=== PATIENT | male | born 1935 | race Caucasian/White ===

== ENCOUNTER 2017-01-08 08:41 | Emergency (ER) | payer MEDICARE, MEDICAID ==
--- NOTE | 2017-01-08 13:47 | UC ---
I, Oh,Soohyun, scribed for Sheryl Winston DO on 01/08/17 at 1108 . Complaint Male HPI - HPI Summary HPI Summary: LEVEL 5 CAVEAT secondary to profound MR. Pt is nonverbal. Most of HPI is obtained from dish room worker/staff present at bedside. Pt is nonverbal, does not follow command. He is currently resisting examination, repeatedly hitting his own head. This 81 y/o male presents to [facility] from [facility] for acute on recurrent inguinal hernia. Pt was noted with scrotal swelling this morning by a member of the night staff, and concerned staff decided to bring him for evaluation today when swelling appeared bigger than the previous ones. The critical care cns with pt ( a day staff member who knows pt well), states that he does not see any difference in pt scrotum from his usual state of escaped hernia. Further, per critical care cns, while pt is agitated from waiting in room in a gown, he does not appear to be in any acute pain. Care take states that when pt is in pain his hands make a shaking gesture when in pain. PMHx includes spermatocele, chronic constipation, Carson, Jain Palsy, and recurrent bilat inguinal hernia. - History of Current Complaint Chief Complaint: UCGU Stated Complaint: [id number],SORE Time Seen by Provider: 01/08/17 09:50 Hx Obtained From: Family/Radio Electronics Technician, Medical Records Hx From Patient Unobtainable Due To: Other - Profound MR Onset/Duration: Sudden Onset, Lasting Hours, Still Present Timing: Constant Associated Signs And Symptoms: Negative: Fever, Appetite, Penile Swelling, Penile Discharge - Allergies/Home Medications Allergies/Adverse Reactions: Allergies Allergy/AdvReac Type Severity Reaction Status Date / Time Amoxicillin [From Augmentin] Allergy Unknown Unknown Verified 01/08/17 08:57 Reaction Details Clavulanic Acid Allergy Unknown Unknown Verified 01/08/17 08:57 [From Augmentin] Reaction Details PMH/Surg Hx/FS Hx/Imm Hx Endocrine History Of: Reports: Thyroid Disease Denies: Diabetes Cardiovascular History Of: Denies: Cardiac Disorders, Hypertension Respiratory History Of: Denies: COPD, Asthma GI/ History Of: Denies: Ulcer Psychological History Of: Reports: Anxiety - excessive - Surgical History Surgical History: Unable to Obtain/Confirm - Family History Known Family History: Positive: Unknown - LEVEL 5 CAVEAT secondary to MR - Social History Occupation: Disabled Lives: [facility] [employer] Alcohol Use: None Substance Use Type: None Smoking Status (MU): Never Smoked Tobacco Review of Systems Constitutional: Negative Skin: Negative Eyes: Negative Respiratory: Negative Gastrointestinal: Negative Genitourinary: Other - scrotal enlargement d/t escaped hernia Motor: Negative All Other Systems Reviewed And Are Negative: No - Comments Additional Review of Systems Comments: LEVEL 5 CAVEAT secondary to MR. Stringer ROS obtained from neonatal intensive care unit nurse. Physical Exam Triage Information Reviewed: Yes Completion Of Physical Exam Limited Due To: Patient is uncooperative with exam, Other - LEVEL 5 CAVEAT secondary to MR. Zhang does not follow commands at all and is resisting examination at the time. Appearance: Well-Appearing, No Pain Distress, Well-Nourished Vital Signs: Initial Vital Signs Temp 97.4 F 01/08/17 08:47 Pulse 70 01/08/17 08:47 Resp 24 01/08/17 08:47 Pulse Ox 94 01/08/17 08:47 Vital Signs Reviewed: Yes Eyes: Positive: Conjunctiva Clear. Negative: Discharge ENT: Positive: Hearing grossly normal Neck: Positive: Supple, Nontender Respiratory: Positive: Lungs clear, Normal breath sounds, No respiratory distress, No accessory muscle use Cardiovascular: Positive: RRR, No Murmur Abdomen Description: Positive: Hernia @ Bowel Sounds: Positive: Present Musculoskeletal Exam: Normal Neurological: Positive: Alert, Muscle Tone Normal Psychological: Positive: Decreased Age Appropriate Behavior Skin Exam: Normal, Other - Warm, dry, color nml. neg for swelling, induration, erythema, calor, drainage Complaint Male Course/Dx - Differential Dx/Diagnosis Provider Diagnoses: Inguinal hernia Discharge - Discharge Plan Condition: Stable Disposition: HOME Patient Education Materials: Inguinal Hernia (ED) Referrals: Elliot Rivera DO [Primary Care Provider] - As Soon As Possible Additional Instructions: Right now, per caregiver observation, pt does not appear to be in acute pain. Inspection of his scrotum does not reveal any sign of infection. Per neonatal intensive care unit nurse , pt scrotum does not seem to be significantly. He should be evaluated by his PCP this week. Until that time, continue current monitoring of hernia for changes. Please be sure to bring patient immediately to Emergency Room if patient is noted with fever, acute pain, or any sign of infection(redness, swelling, heat, drainage). The documentation as recorded by the scribeMat Soohyun accurately reflects the service I personally performed and the decisions made by , Sheryl Winston DO.
== END 2017-01-08 11:30 | disposition home or self-care (01) ==
LOC: UCEAST 08:41
DX: K40.90 Unilateral inguinal hernia, without obstruction or gangrene, not specified as recurrent (principal); E07.9 Disorder of thyroid, unspecified; F41.9 Anxiety disorder, unspecified; Z88.3 Allergy status to other anti-infective agents
CPT/HCPCS: 99212; G0463

== ENCOUNTER 2017-06-30 09:01 | Emergency (ER) | payer MEDICARE, MEDICAID ==
[2017-06-30 09:47] VITALS: BP 131/80
--- NOTE | 2017-08-05 07:42 | UC ---
Red Lang Nikita, scribed for Sheryl Winston DO on 06/30/17 at 1016 . Respiratory Complaint HPI - HPI Summary HPI Summary: This patient is an 82 year old M presenting to [facility] with a respiratory complaint since earlier this morning. Daughter reports the pt has had clear nasal drainage for a few days. This morning, he had yellow nasal drainage and a barky cough that the daughter hasnt heard since this morning. The CC is described as yellow nasal drainage with a cough. The patient rates the pain 0/ 10 in severity. Symptoms aggravated by nothing. Symptoms alleviated by nothing. Patient denies abdominal pain, N/V/D, urinary and bowel symptoms, appetite changes, unusual behaviors, and ear ache. - History of Current Complaint Chief Complaint: UCRespiratory Stated Complaint: NASAL DRAINAGE Time Seen by Provider: 06/30/17 10:07 Hx Obtained From: Family/Target Protection Specialist - daughter Hx From Patient Unobtainable Due To: Altered Mental Status Onset/Duration: Sudden Onset - earlier this morning, Still Present Severity Currently: None Pain Intensity: 0 Pain Scale Used: 0-10 Numeric Character: Cough: Nonproductive - barky cough and yellow nasal discharge Aggravating Factors: Nothing Alleviating Factors: Nothing - Allergies/Home Medications Allergies/Adverse Reactions: Allergies Allergy/AdvReac Type Severity Reaction Status Date / Time Amoxicillin [From Augmentin] Allergy Unknown Unknown Verified 06/30/17 09:42 Reaction Details Clavulanic Acid Allergy Unknown Unknown Verified 06/30/17 09:42 [From Augmentin] Reaction Details PMH/Surg Hx/FS Hx/Imm Hx Endocrine History: Hypothyroidism Other Cardiovascular History: Heart murmur, arthrosclorosis aorta, aorto iliac syndrome GI/ History: Other - 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 Other GI/ History: 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 Psychological History: Anxiety Other Cancer History: Tuberculosis, psoriasis, Savery Palsy, hemorrhoids, inguinal hernia - Surgical History Surgical History: Unable to Obtain/Confirm - Family History Known Family History: Positive: Unknown - LEVEL 5 CAVEAT secondary to MR - Social History Alcohol Use: None Substance Use Type: None Smoking Status (MU): Never Smoked Tobacco Review of Systems ENT: Other - clear nasal discharge since few days ago, yellow nasal discharge this morning; denies ear ache Respiratory: Cough - barky cough, non-productive Gastrointestinal: Other - denies abdominal pain, N/V/D, bowel symptoms, appetite changes Genitourinary: Other - denies urinary symptoms Psychological: Other - Denies unusual behavior All Other Systems Reviewed And Are Negative: Yes Physical Exam Triage Information Reviewed: Yes Vital Signs: Initial Vital Signs Temp 98 F 06/30/17 09:43 Pulse 59 06/30/17 09:43 Resp 20 06/30/17 09:43 BP 131/80 06/30/17 09:43 Pulse Ox 99 06/30/17 09:43 - Additional Comments Pt has obvious developmental delay. Appearance: Well-Appearing, No Pain Distress, Well-Nourished Eyes: conjunctiva clear, negative: discharge ENT: Hearing grossly normal, Negative: Muffled/hoarse voice. Yellow nasal discharge. Respiratory/Lung Sounds: Lungs clear, Normal breath sounds, No respiratory distress, No accessory muscle use Cardiovascular: RRR, No murmur Musculoskeletal: Normal Neurological: Alert, muscle tone normal Psychiatric: Normal, age appropriate behavior Skin: Normal, other -- Warm, Dry, Normal color UC Diagnostic Evaluation - Laboratory O2 Sat by Pulse Oximetry: 99 Respiratory Course/Dx - Course Course Of Treatment: This patient is an 82 year old M presenting to [facility] with a respiratory complaint since earlier this morning. Daughter reports the pt has had clear nasal drainage for a few days. This morning, he had yellow nasal drainage and a barky cough that the daughter hasnt heard since this morning. The CC is described as yellow nasal drainage with a cough. The patient rates the pain 0/10 in severity. Symptoms aggravated by nothing. Symptoms alleviated by nothing. Patient denies abdominal pain, N/V/D, urinary and bowel symptoms, appetite changes, unusual behaviors, and ear ache. BP noted. Medications reviewed this visit. Pt will be discharged. Family is agreeable with this plan. appropriot geriatric bp. - Differential Dx/Diagnosis Provider Diagnoses: Upper Respiratory Infection. Discharge - Discharge Plan Condition: Stable Disposition: HOME Patient Education Materials: Upper Respiratory Infection (ED) Referrals: Elliot Rivera DO [Primary Care Provider] - 1 Week Additional Instructions: Your blood pressure was elevated at this visit. That does not mean you have hypertension, it is probably due to your current condition. Please follow up with your primary care provider. The documentation as recorded by the Red olmstead Nikita accurately reflects the service I personally performed and the decisions made by , Sheryl Winston DO.
== END 2017-06-30 10:46 | disposition home or self-care (01) ==
LOC: UCEAST 09:01
DX: J06.9 Acute upper respiratory infection, unspecified (principal); E03.9 Hypothyroidism, unspecified; I70.0 Atherosclerosis of aorta; N40.0 Benign prostatic hyperplasia without lower urinary tract symptoms; F41.9 Anxiety disorder, unspecified; Z88.1 Allergy status to other antibiotic agents
CPT/HCPCS: 99212; G0463

== ENCOUNTER 2018-04-14 10:05 | Inpatient (IN) | payer MEDICARE, MEDICAID ==
[2018-04-14] MEDS ORDERED: Ketorolac INJ* 30 MG/ML 1 ML VIAL IV PUSH ONE (10:36)
--- NOTE | 2018-04-14 11:56 | RAD ---
Indication: Fever. Comparison is made with previous exam dated August 03, 2017. 2 views of the chest are reviewed. Airspace disease is noted in the lung bases. No mediastinal shift is noted. No pleural fluid is identified. IMPRESSION: Bibasilar airspace disease likely representing bibasilar atelectasis although pneumonia is not totally excluded.
[2018-04-14] MEDS ORDERED: Levofloxacin 750 MG IVPREMIX(* 750 MG/150 ML BAG IVPB ONE (11:59)
[2018-04-14] MEDS: NS 0.9% 1000 ML* 1,000 ML IV ONE ×2 (12:04→13:24)
[2018-04-14 12:17] LABS: ABS Basophils 0 10^3/ul (0-0.2); ABS Eosinophils 0 10^3/ul (0-0.6); ABS Lymphocytes 0.6 10^3/ul (1.0-4.8); ABS Monocytes 1.1 10^3/ul (0-0.8); ABS Nucleated RBC 0.1 10^3/ul; Eosinophil % 0 % (0-6); Hematocrit 50 % (42-52); Lymphocyte % 3.4 % (25-47); Mean Corpuscular HGB Conc 34 g/dl (31-36); Mean Corpuscular Hemoglobin 31 pg (27-31); Mean Corpuscular Volume 91 fL (80-94); Mean Platelet Volume 8.1 um3 (7.4-10.4); Nucleated Red Blood Cells % 0.4; Platelet Count 278 10^3/ul (150-450); Red Blood Count 5.53 10^6/ul (4.00-5.40); Red Cell Distribution Width 14 % (10.5-15); White Blood Count 17.7 10^3/ul (3.5-10.8)
[2018-04-14 12:24] LABS: INR 1.25 (0.77-1.02)
[2018-04-14 12:34] LABS: EGFR Non-African American 46.3 (>60)
[2018-04-14 13:03] LABS: Urine Appearance Turbid; Urine Blood 1+ (Negative); Urine Color Yellow; Urine Ketones Negative (Negative); Urine Protein 1+(30 mg/dL) (Negative); Urine Specific Gravity 1.015 (1.010-1.030); Urine Urobilinogen Negative (Negative)
[2018-04-14] MEDS ORDERED: Aspirin 81 mg CHEW TAB* 81 MG TAB.CHEW PO ONE (13:13)
[2018-04-14] MEDS ORDERED: Al Hydrox/Mg Hydrox/Simet LIQ* 30 ML UDC PO PRN (14:08)
[2018-04-14] MEDS ORDERED: NS 0.9% 1000 ML* 1,000 ML IV ONE (14:15)
[2018-04-14] MEDS: cefTRIAXone(*) 1 GM in NS 0.9% 50 ML* 50 ML IVPB SCH (15:53)
[2018-04-14] MEDS ORDERED: Azithromycin IV(*) 500 MG in NS 0.9% 250 ML* 250 ML IVPB SCH (16:00)
[2018-04-14] MEDS: Heparin VIAL(*) 5000 UNITS/ML VIAL (FIVE THOUSAND) SUBCUT SCH ×2 (16:25→21:25)
--- NOTE | 2018-04-14 16:49 | ED ---
Nils Lang Natalie, scribed for Dain Bernstein MD on 04/14/18 at 1121 . HPI Febrile Illness - HPI Summary HPI Summary: The patient is an 83 y/o M presenting to [facility] accompanied by diathermy equipment repairer c/o fever and lethargy that started this morning. Per diathermy equipment repairer, the pt would not get out of bed, which is unusual for him as he's usual "on the go and the first one awake in the morning." She states that she had to go into his closet and mess things around in order to get up him due to his OCD with keeping his closet organized. She also reports that the pt's right eye was red, and he kept holding his hand over the eye. The pain is rated 5/10 in severity. The pt has not been coughing more than usually. He has not fallen recently. 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 Hx is limited due to pt's MR, causing him to be nonverbal. - History of Current Complaint Chief Complaint: EDFever Hx Obtained From: Family/Work Ticket Distributor Hx From Patient Unobtainable Due To: Other - pt is nonverbal and unable to contribue hx due to MR Onset/Duration: Started Hours Ago, Still Present Timing: Constant, Lasting Hours Initial Severity: Mild Current Severity: Mild Pain Intensity: 5 Pain Scale Used: 0-10 Numeric Aggravating Factors: Nothing Alleviating Factors: Nothing Associated Signs and Symptoms: Negative - cough, Other: - redness in right eye - Allergy/Home Medications Allergies/Adverse Reactions: Allergies Allergy/AdvReac Type Severity Reaction Status Date / Time amoxicillin [From Augmentin] Allergy Unknown Verified 04/14/18 13:57 Reaction Details clavulanic acid Allergy Unknown Verified 04/14/18 13:57 [From Augmentin] Reaction Details Home Medications: Home Medications Acetaminophen TAB* [Tylenol TAB*] 650 mg PO Q4H PRN 04/14/18 [History Confirmed 04/14/18] Al Hydrox/Mg Hydrox/Simet LIQ* [Maalox Plus*] 10 ml PO ACHS PRN 04/14/18 [ History Confirmed 04/14/18] Bisacodyl [Dulcolax] 10 mg PO SEE INSTRUCTIONS PRN 04/14/18 [History Confirmed 04/14/18] Mineral Oil [Mineral Oil Heavy] 3 drop OTIC DAILY 04/14/18 [History Confirmed ] Polyethylene Glycol 3350* [Miralax*] 17 gm PO DAILY 04/14/18 [History Confirmed 04/14/18] Sodium Phosphate ADULT ENEMA* [Fleet Enema*] 1 enema AL SEE INSTRUCTIONS PRN 11/01 [History Confirmed 04/14/18] Zinc Oxide [Desitin] 13 % TOPICAL TID PRN 04/14/18 [History Confirmed 04/14/18] clonazePAM [Clonazepam Odt] 0.25 mg PO QAM 04/14/18 [History Confirmed 04/14/18] guaiFENesin LIQ* [Robitussin*] 10 ml PO Q4H PRN 04/14/18 [History Confirmed 11/01] PMH/Surg Hx/FS Hx/Imm Hx Endocrine/Hematology History: Reports: Hx Thyroid Disease Denies: Hx Diabetes Cardiovascular History: Denies: Hx Hypertension Respiratory History: Denies: Hx Asthma, Hx Chronic Obstructive Pulmonary Disease (COPD) GI History: Denies: Hx Ulcer Sensory History: Reports: Hx Cataracts - BILAT Denies: Hx Contacts or Glasses, Hx Hearing Aid Opthamlomology History: Reports: Hx Cataracts - BILAT Denies: Hx Contacts or Glasses Psychiatric History: Reports: Hx Anxiety - excessive - Surgical History Hx Anesthesia Reactions: No - UNKNOWN Infectious Disease History: No Infectious Disease History: 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 Denies: Hx Clostridium Difficile, Hx Hepatitis, Hx Human Immunodeficiency Virus (HIV), Hx of Known/Suspected MRSA, Hx Shingles, Hx Known/Suspected VRE, Hx Known/Suspected VRSA, History Other Infectious Disease, Traveled Outside the [place] in Last 30 Days - Family History Known Family History: Positive: Unknown - LEVEL 5 CAVEAT secondary to MR - Social History Alcohol Use: None Substance Use Type: Reports: None Smoking Status (MU): Never Smoked Tobacco Review of Systems Positive: Fever, Other - lethargic Positive: Other - redness in right eye Negative: Cough All Other Systems Reviewed And Are Negative: Yes Physical Exam - Summary Physical Exam Summary: Appearance: Well appearing, no pain distress Skin: hot to touch, dry, reflects adequate perfusion Head/face: normal Eyes: EOMI, MARILYN, right eye is not red, ptosis on right side ENT: mucous membranes tacky Neck: supple, non-tender Respiratory: coarse sounds to lungs but exam is limited due to low groan in lungs, breath sounds present Cardiovascular: heart is tachycardic, pulses are full Abdomen: non-tender, soft Bowel Sounds: present Musculoskeletal: normal, strength/ROM intact Neuro: normal, sensory motor intact, A&Ox3 Triage Information Reviewed: Yes Vital Signs On Initial Exam: Initial Vitals Temp Pulse Resp BP Pulse Ox 101.4 F 101 16 143/78 93 04/14/18 10:08 04/14/18 10:08 04/14/18 10:08 04/14/18 10:08 04/14/18 10:08 Vital Signs Reviewed: Yes Diagnostics - Vital Signs Vital Signs Temp Pulse Resp BP Pulse Ox 04/14/18 10:08 101.4 F 101 16 143/78 93 - Laboratory Lab Results: Lab Results 04/14/18 04/14/18 04/14/18 Range/Units 11:54 11:54 11:54 WBC 17.7 H (3.5-10.8) 10^3/ul RBC 5.53 H (4.00-5.40) 10^6/ul Hgb 17.0 (14.0-18.0) g/dl Hct 50 (42-52) % MCV 91 (80-94) fL MCH 31 (27-31) pg MCHC 34 (31-36) g/dl RDW 14 (10.5-15) % Plt Count 278 (150-450) 10^3/ul MPV 8.1 (7.4-10.4) um3 Neut % (Auto) 90.5 H (38-83) % Lymph % (Auto) 3.4 L (25-47) % Tyrrell % (Auto) 6.0 (0-7) % Eos % (Auto) 0 (0-6) % Baso % (Auto) 0.1 (0-2) % Absolute Neuts (auto) 16.0 H (1.5-7.7) 10^3/ul Absolute Lymphs (auto) 0.6 L (1.0-4.8) 10^3/ul Absolute Monos (auto) 1.1 H (0-0.8) 10^3/ul Absolute Eos (auto) 0 (0-0.6) 10^3/ul Absolute Basos (auto) 0 (0-0.2) 10^3/ul Absolute Nucleated RBC 0.1 10^3/ul Nucleated RBC % 0.4 INR (Anticoag Therapy) 1.25 H (0.77-1.02) APTT 48.6 H (26.0-36.3) seconds Sodium 135 (135-145) mmol/L Potassium 4.1 (3.5-5.0) mmol/L Chloride 104 (101-111) mmol/L Carbon Dioxide 24 (22-32) mmol/L Anion Gap 7 (2-11) mmol/L BUN 30 H (6-24) mg/dL Creatinine 1.46 H (0.67-1.17) mg/dL Est GFR ( Amer) 56.1 (>60) Est GFR (Non-Af Amer) 46.3 (>60) BUN/Creatinine Ratio 20.5 H (8-20) Glucose 172 H (70-100) mg/dL Lactic Acid (0.5-2.0) mmol/L Calcium 9.8 (8.6-10.3) mg/dL Total Bilirubin 0.70 (0.2-1.0) mg/dL AST 27 (13-39) U/L ALT 22 (7-52) U/L Alkaline Phosphatase 95 (34-104) U/L Troponin I 1.23 H* (<0.04) ng/mL C-Reactive Protein 53.28 H (<8.01) mg/L B-Natriuretic Peptide ( - 100) pg/mL Total Protein 7.8 (6.4-8.9) g/dL Albumin 3.5 (3.2-5.2) g/dL Globulin 4.3 H (2-4) g/dL Albumin/Globulin Ratio 0.8 L (1-3) Urine Color Urine Appearance Urine pH (5-9) Ur Specific [place] (1.010-1.030) Urine Protein (Negative) Urine Ketones (Negative) Urine Blood (Negative) Urine Nitrate (Negative) Urine Bilirubin (Negative) Urine Urobilinogen (Negative) Ur Leukocyte Esterase (Negative) Urine WBC (Auto) (Absent) Urine RBC (Auto) (Absent) Ur Squamous Epith Cells (Absent) Urine Bacteria (Absent) Urine Glucose (Negative) 0704/14/18 04/14/18 Range/Units 11:54 11:54 12:13 WBC (3.5-10.8) 10^3/ul RBC (4.00-5.40) 10^6/ul Hgb (14.0-18.0) g/dl Hct (42-52) % MCV (80-94) fL MCH (27-31) pg MCHC (31-36) g/dl RDW (10.5-15) % Plt Count (150-450) 10^3/ul MPV (7.4-10.4) um3 Neut % (Auto) (38-83) % Lymph % (Auto) (25-47) % Tyrrell % (Auto) (0-7) % Eos % (Auto) (0-6) % Baso % (Auto) (0-2) % Absolute Neuts (auto) (1.5-7.7) 10^3/ul Absolute Lymphs (auto) (1.0-4.8) 10^3/ul Absolute Monos (auto) (0-0.8) 10^3/ul Absolute Eos (auto) (0-0.6) 10^3/ul Absolute Basos (auto) (0-0.2) 10^3/ul Absolute Nucleated RBC 10^3/ul Nucleated RBC % INR (Anticoag Therapy) (0.77-1.02) APTT (26.0-36.3) seconds Sodium (135-145) mmol/L Potassium (3.5-5.0) mmol/L Chloride (101-111) mmol/L Carbon Dioxide (22-32) mmol/L Anion Gap (2-11) mmol/L BUN (6-24) mg/dL Creatinine (0.67-1.17) mg/dL Est GFR ( Amer) (>60) Est GFR (Non-Af Amer) (>60) BUN/Creatinine Ratio (8-20) Glucose (70-100) mg/dL Lactic Acid 1.9 (0.5-2.0) mmol/L Calcium (8.6-10.3) mg/dL Total Bilirubin (0.2-1.0) mg/dL AST (13-39) U/L ALT (7-52) U/L Alkaline Phosphatase (34-104) U/L Troponin I (<0.04) ng/mL C-Reactive Protein (<8.01) mg/L B-Natriuretic Peptide 30 ( - 100) pg/mL Total Protein (6.4-8.9) g/dL Albumin (3.2-5.2) g/dL Globulin (2-4) g/dL Albumin/Globulin Ratio (1-3) Urine Color Yellow Urine Appearance Turbid Urine pH 7.0 (5-9) Ur Specific [place] 1.015 (1.010-1.030) Urine Protein 1+(30 mg/dl) A (Negative) Urine Ketones Negative (Negative) Urine Blood 1+ A (Negative) Urine Nitrate Negative (Negative) Urine Bilirubin Negative (Negative) Urine Urobilinogen Negative (Negative) Ur Leukocyte Esterase 3+ A (Negative) Urine WBC (Auto) 3+(>20/hpf) A (Absent) Urine RBC (Auto) 3+(>10/hpf) A (Absent) Ur Squamous Epith Cells Present A (Absent) Urine Bacteria Absent (Absent) Urine Glucose Negative (Negative) Result Diagrams: 04/14/18 11:54 04/14/18 11:54 Lab Statement: Any lab studies that have been ordered have been reviewed, and results considered in the medical decision making process. - Radiology CXR Xray Interpretation: Positive (See Comments) - Bibasilar airspace disease likely representing bibasilar atelectasis although pneumonia is not totally excluded. ED physician has reviewed this report. Radiology Interpretation Completed By: Radiologist - EKG 13:05 Cardiac Rate: NL - 97 BPM EKG Rhythm: Sinus Rhythm EKG Interpretation: PAC. Non-specific ST. Nml axis. Course/Dx - Course Course Of Treatment: Patient with mental retardation who is unable to contribute to his history. Today with his more somnolent with decreased activity. Found to have fever and bibasal infiltrates. He also has elevated troponin. EKG does not show ST elevation. EKG was obtained under difficult circumstances as he was not very welling to have the procedure done. Patient was given IV fluids, antipyretic and IV Levaquin. Aspirin was given as the troponin is elevated. Hospitalist was contacted and will admit the patient to the telemetry service. - Diagnoses Provider Diagnoses: Sepsis, Pneumonia, Dehydration, NSTEMI (non-ST elevated myocardial infarction) - Provider Notifications Discussed Care Of Patient With: Ash Mcdermott Time Discussed With Above Provider: 12:39 - Dr. Mcdermott accepts the pt for admission. Instructed by Provider To: Admit As Inpatient Admit/Transition Orders Completed By ED Provider: Yes - Critical Care Time Critical Care Time: 30-74 min - Critical care time is exclusive of separately billable procedures Discharge - Sign-Out/Discharge Documenting (check all that apply): Discharge/Admit/Transfer - Pt will be admitted to [facility] under the care of Dr. Mcdermott. - Discharge Plan Condition: Fair Disposition: ADMITTED TO [facility] - Billing Disposition and Condition Condition: FAIR Disposition: Admitted to [facility] The documentation as recorded by the Nils olmstead Natalie accurately reflects the service I personally performed and the decisions made by Amandeep chung Kirk, MD.
[2018-04-14] MEDS: chlorproMAZINE TAB* 25 MG PO PRN (17:25)
[2018-04-14] MEDS: Metoprolol Tartrate TAB* 25 MG PO SCH (17:25)
[2018-04-14] MEDS ORDERED: chlorproMAZINE TAB* 25 MG PO SCH (18:00)
[2018-04-14] MEDS ORDERED: Docusate CAP* 100 MG PO SCH (21:00)
[2018-04-14] MEDS: chlorproMAZINE TAB* 25 MG PO SCH (21:24)
[2018-04-14] MEDS: Topiramate TAB(*) 25 MG PO SCH (21:24)
[2018-04-14] MEDS: clonazePAM TAB(*) 0.5 MG PO SCH (21:24)
[2018-04-14] MEDS: Docusate CAP* 100 MG PO SCH (21:25)
[2018-04-14] MEDS: Acetaminophen TAB* 325 MG PO PRN (23:22)
[2018-04-15 01:40] LABS: ABS Basophils 0 10^3/ul (0-0.2); ABS Eosinophils 0 10^3/ul (0-0.6); ABS Lymphocytes 0.9 10^3/ul (1.0-4.8); ABS Monocytes 1.3 10^3/ul (0-0.8); ABS Neutrophils 17.3 10^3/ul (1.5-7.7); ABS Nucleated RBC 0 10^3/ul; Eosinophil % 0 % (0-6); Hematocrit 43 % (42-52); Hemoglobin 14.5 g/dl (14.0-18.0); Lymphocyte % 4.6 % (25-47); Mean Corpuscular HGB Conc 34 g/dl (31-36); Mean Corpuscular Hemoglobin 31 pg (27-31); Mean Corpuscular Volume 90 fL (80-94); Mean Platelet Volume 8.3 um3 (7.4-10.4); Nucleated Red Blood Cells % 0.1; Platelet Count 235 10^3/ul (150-450); Red Blood Count 4.73 10^6/ul (4.00-5.40); Red Cell Distribution Width 14 % (10.5-15); White Blood Count 19.5 10^3/ul (3.5-10.8)
[2018-04-15 01:58] LABS: EGFR Non-African American 46.3 (>60)
[2018-04-15] MEDS ORDERED: NS 0.9% 1000 ML* 1,000 ML IV SCH (04:15)
[2018-04-15] MEDS: Heparin VIAL(*) 5000 UNITS/ML VIAL (FIVE THOUSAND) SUBCUT SCH ×3 (05:59→21:09)
--- NOTE | 2018-04-15 06:05 | HP ---
CC: Dr. Rivera * HISTORY AND PHYSICAL: DATE OF ADMISSION: 04/14/18 PRIMARY CARE PROVIDER: Dr. Rivera. ATTENDING PHYSICIAN WHILE IN THE HOSPITAL: Vadim Mcdermott MD * (dictated by Angelica Herrera NP) CHIEF COMPLAINT: 1. Decreased appetite. 2. Fatigue. HISTORY OF PRESENT ILLNESS: Mr. Carranza is an 83-year-old gentleman with a past medical history significant for profound mental retardation, chronic constipation, psoriasis, hypothyroid, cataracts, atherosclerosis of the aorta, heart murmur, anxiety, hypertension, BPH, and bilateral aortoiliac syndrome, who currently resides at a senior care. He presented to the emergency room with staff from the senior care stating that the patient has had a decreased appetite. The staff states that the patient was out dinner at [employer] his favorite restaurant last evening and did not eat any of his meal. The patient did sleep through the night and the patient this morning did not want to get up. He again did not want to eat his meal, ate very little breakfast. They also reported that his right eye was pink. Due to his change in behavior, he was brought to the emergency room for further evaluation. Upon arrival to the emergency room, the patient was found to have a fever of 101.4. The patient is nonverbal and unable to give any history due to his fever and meeting sepsis criteria. We were asked by the emergency room physician to evaluate him for admission. PAST MEDICAL HISTORY: Significant for: 1. Profound mental retardation. 2. Chronic constipation. 3. Psoriasis. 4. Hypothyroidism. 5. Cataracts. 6. Atherosclerosis of the aorta. 7. Heart murmur. 8. Anxiety. 9. Hypertension. 10. BPH. 11. Bilateral aortoiliac syndrome. PAST SURGICAL HISTORY: Right hernia repair. MEDICATIONS: Home medications include: 1. Desitin topical t.i.d. p.r.n. 2. Mineral oil 3 drops otic daily. 3. Maalox Plus 10 mL p.o. a.c., h.s. p.r.n. 4. Guaifenesin 10 mL q.4 hours as needed for cough. 5. Tylenol 650 mg p.o. q.4 hours as needed for pain. 6. Fleet Enema 1 enema as needed for constipation. 7. Dulcolax 10 mg p.o. as needed for constipation. 8. MiraLax 17 g p.o. daily. 9. Clonazepam 0.5 mg p.o. at bedtime. 10. Humira 40 mg subcu. 11. Bacitracin topically b.i.d. p.r.n. 12. Diprolene topically b.i.d. 13. Vectical 1 application topically b.i.d. 14. Chlorhexidine gluconate 1 solution p.o. b.i.d. 15. Clonazepam ODT 0.25 mg p.o. q.a.m. 16. Deep Sea nasal spray, 1 spray nasal daily. 17. Hydrocortisone 1 application topically b.i.d. 18. Docusate sodium 200 mg p.o. b.i.d. 19. Lactulose 30 mg p.o. daily. 20. Ibuprofen 400 mg p.o. q.4 hours as needed. 21. Niacin ER 1000 mg p.o. daily. 22. Nasal Moist gel. 23. Artificial tears. 24. Thorazine 25 mg p.o. q.p.m. 25. Topiramate 25 mg p.o. b.i.d. 26. Kenalog. 27. Multivitamin 1 cap p.o. q.a.m. 28. Claritin 10 mg p.o. daily. 29. Levothyroxine 50 mcg p.o. q.a.m. ALLERGIES TO MEDICATIONS: Allergy to AUGMENTIN. FAMILY HISTORY: Grandmother with a reported history of hypertension. No reported history of diabetes or cancer within the family. SOCIAL HISTORY: The patient does not smoke, does not drink any alcohol, or use any illicit drugs. The patient currently resides in a senior care. Surrogate decision maker for him is Ms. Bailey as well as Pamela Jiang and her phone number is [phone]. The patient is a full code. REVIEW OF SYSTEMS: As per caregiver, the patient has not had any nausea, vomiting, or diarrhea. Has not had any cough, hemoptysis, or shortness of breath. Has not had any fevers or chills. There was no reported hematuria or dysuria. There has been no dysphagia. No rashes. He does have discoloration to bilateral knees and elbows. A review of systems was difficult to obtain as the patient is nonverbal and has profound mental retardation. PHYSICAL EXAMINATION GENERAL: The patient is a well-nourished, well-developed male. He was found sitting on the stretcher in the emergency room. He is hitting himself in the head with his fists and pushing away staff during this examination. The patient is yelling incomprehensible words. VITAL SIGNS: Temperature on admission was 101.4, heart rate was 111, blood pressure 145/65, O2 saturation was 96% on room air. HEENT: Head is atraumatic and normocephalic. Eyes: EOMs are intact. Right eye is mildly reddened. Oral mucosa appears moist. NECK: Supple. LUNGS: Clear to auscultation bilaterally. There are no wheezes, rales, or rhonchi. CARDIAC: S1, S2. Regular rate and rhythm. ABDOMEN: Soft, flat, and nontender. Bowel sounds are present x4. He does have a right inguinal hernia that is soft to palpation. EXTREMITIES: Pulses are +2 bilaterally. He is able to move all 4 extremities with 5/5 strength. NEUROLOGIC: The patient is nonverbal. He is alert. The patient does yell incomprehensible sounds. SKIN: He does have bilateral purple discoloration to bilateral knees and elbows. DIAGNOSTIC STUDIES AND LABORATORY DATA: WBCs are 17.7, RBCs 5.53, hemoglobin was 17.0, hematocrit was 50, neutrophil percent is 90.5, lymphs are 3.4, absolute neutrophils are 16. INR was 1.25, APTT was 48.6. Sodium 135, potassium 4.1, chloride was 104, carbon dioxide was 24, anion gap was 7, BUN was 30, creatinine 1.46. Troponin was 1.23. C-reactive protein was 53.28. BNP was 30. Urine color was yellow, appearance was turbid, pH was 7, specific gravity 1.015, urine protein was 1+, urine ketones was negative, urine blood was 1+, urine nitrites was negative, urine bilirubin was negative, urobilinogen was negative, urine leukocyte esterase was 3+, urine wbc's was 3+, rbc's 3+, urine squamous epithelial cells were present, urine bacteria was absent, urine glucose was negative. He had a chest x-ray. Radiologist's impression: Bibasilar airspace disease, likely representing bibasilar atelectasis, although pneumonia cannot be excluded. He had an electrocardiogram. Electrocardiogram showed sinus rhythm at rate of 97 with some dynamic EKG changes. ASSESSMENT AND PLAN: Mr. Carranza is an 83-year-old male who presented to the emergency room today due to weakness, fatigue and was found to be febrile meeting sepsis criteria. We were asked to evaluate him for admission due to possible pneumonia and sepsis as well as an elevated troponin. The patient will be admitted to ICU. 1. Fever, sepsis. The patient is meeting SIRS criteria with WBCs of 17.7, temp of 101.4 and a heart rate of 101. The patient was given IV hydration. He did receive 30 mL/kg of IV normal saline for a total of 2000 cc of normal saline. He was placed on ceftriaxone and azithromycin to treat his suspected pneumonia as well as a urinary tract infection. I will repeat a CBC and BMP in the a.m. and continue him on normal saline at 100 cc per hour. With the use of azithromycin to treat his infection, we will have to continue to monitor his QTc for prolongation as the use of azithromycin in conjunction with Thorazine can increase QTc. His QTc on admission was 432 and we will continue to monitor this at this time. 2. Elevated troponin. I will continue to trend his troponins. His initial troponin was 1.23. I will get an echo tomorrow and a repeat EKG in the a.m. I have consulted Cardiology and spoke to Dr. Schuster. The patient will be placed on metoprolol 25 mg p.o. b.i.d. The patient will also continue aspirin 81 mg p.o. daily. I did not place this patient on full strength anticoagulation as the patient repeatedly hits himself in the head and does have an order to wear a helmet at the senior care he lives in, the concern for him having developing a severe hematoma versus bleeding due to his chronic behavior related to his profound mental retardation. I opted to withhold full strength anticoagulation at this time. 3. Hypothyroidism. He should continue on levothyroxine 50 mcg p.o. daily. 4. Anxiety. He should continue on his clonazepam and Thorazine. 5. FEN. The patient will be placed on a heart healthy, decaf okay ground diet. 6. Code status. He is a full code. 7. DVT prophylaxis. I will place him on heparin subcu. 8. Disposition. He will be placed in the ICU for monitoring. TIME SPENT: Time spent on this admission was approximately 75 minutes, greater than half the time was spent at the bedside reviewing the history and obtaining my physical exam, the other half of the time was spent implementing my plan of care. I have discussed this with my attending, Dr. Iisah Mcdermott, he is in agreement with my plan. ANGELICA HERRERA, RAIL DIRECTOR [id number]/CPS #: [id number]
[2018-04-15] MEDS: Cetirizine* 10 MG TAB PO SCH (08:42)
[2018-04-15] MEDS: Levothyroxine TAB* 50 MCG TAB PO SCH (08:42)
[2018-04-15] MEDS: clonazePAM TAB(*) 0.5 MG PO SCH ×2 (08:43→21:08)
[2018-04-15] MEDS: Metoprolol Tartrate TAB* 25 MG PO SCH ×2 (08:43→21:09)
--- NOTE | 2018-04-15 08:45 | ECHO ---
Patient: LEYLA YANG [facility] Rec#: [id number] : 1935 Date: 04/15/2018 Age: 83y Height: 162.56 cm / 64.0 in Weight: 69.4 kg / 153.0 lbs Sex: M BSA: 1.75 Room#: [facility] Admit Date#: 04/15/2018 Type: Inpatient Referring: Angelica Herrera Reading: Angelo Schuster MD Manager Flight Operations: Lesley Lanier RDCS CC: Miguel BARRIOS,Elliot Transthoracic Echocardiogram Indication: ACS BP: 153/68 HR: 70 Rhythm: NSR Findings History: Mental impairments, hypothyroidism, HTN, murmur, atherosclerosis of aorta. Technical Comments: The study is technically difficult. The study was technically limited due to the patient's inability to lay in the left lateral decubitus position. The patient was combative and in right lateral decubitus position during the study. Completed at 0820. Left Ventricle: The left ventricular chamber size is decreased. Mild concentric left ventricular hypertrophy is observed. Global left ventricular wall motion and contractility are within normal limits. There is normal left ventricular systolic function.Suble focal wall motion abnormalities can not be excluded The estimated ejection fraction is 60-65%. Abnormal left ventricular diastolic function is observed. Abnormal left ventricular diastolic filling is observed, consistent with impaired relaxation. The patient was unable to perform a Valsalva maneuver. Left Atrium: The left atrium is moderately dilated. Right Ventricle: The right ventricle is not well visualized. Moderator Band present. The right ventricle is moderately dilated. The right ventricular global systolic function is low normal. Right Atrium: The right atrial cavity size is normal. Aortic Valve: The aortic valve is trileaflet. There is no evidence of aortic valve thickening. There is no evidence of aortic regurgitation. There is no evidence of aortic stenosis. Mitral Valve: The mitral valve leaflets are mildly thickened. There is a trace of mitral regurgitation. There is no evidence of mitral stenosis. Tricuspid Valve: The tricuspid valve structure is not well visualized. There is trace tricuspid regurgitation. Unable to estimate the right ventricular systolic pressure. There is no tricuspid stenosis. Pulmonic Valve: The pulmonic valve structure is not well visualized. There is no pulmonic stenosis. Pericardium: There is no significant pericardial effusion. Aorta: There is no dilatation of the ascending aorta. The aortic arch is not well visualized. The aortic root is normal in size. Pulmonary Artery: The main pulmonary artery is not well visualized. Venous: The inferior vena cava is dilated. There is an approximate 50% respiratory change in the inferior vena cava dimension. Summary: There was not any prior study for comparison. Conclusions The study was technically limited due to the patient's inability to lay in the left lateral decubitus position. The patient was combative and in right lateral decubitus position during the study. Completed at 0820. Global left ventricular wall motion and contractility are within normal limits. There is normal left ventricular systolic function.Suble focal wall motion abnormalities can not be excluded The estimated ejection fraction is 60-65%. Abnormal left ventricular diastolic filling is observed, consistent with impaired relaxation. The right ventricular global systolic function is low normal. There is no evidence of aortic stenosis. There is a trace of mitral regurgitation. There is trace tricuspid regurgitation. Unable to estimate the right ventricular systolic pressure. There is no significant pericardial effusion. Measurements Name Value Normal Range RVIDd (AP) 2D 3 cm (0.9 - 2.6) RVDdMajor (2D) 5 cm (2.2 - 4.4) RAd ISD 4CH 4.5 cm (3.4 - 4.9) RA (A4C)W 4.2 cm (2.9 - 4.6) IVSd (2D) 1.1 cm (0.6 - 1) LVPWd (2D) 1.1 cm (0.6 - 1) LVIDd (2D) 2.8 cm (3.6 - 5.4) LVIDs (2D) 1.99 cm - LV FS (2D) 29 % (25 - 45) Aortic Annulus 1.9 cm (1.4 - 2.6) Ao root diameter (2D) 2.5 cm (2.1 - 3.5) Ascending Ao 2.6 cm (2.1 - 3.4) LA dimension (AP) 2D 3.7 cm (2.3 - 3.8) LAd ISD 4CH 5.3 cm (2.9 - 5.3) LA ISD 4CH W 4.7 cm (2.5 - 4.5) Name Value Normal Range LA ESV SP 4CH (A/L) 79 ml - LA ESV SP 2CH (A/L) 105 ml - LA ESV BP (A/L) 104 ml - LA ESV BP (A/L) index 60 ml/m2 - LA ESV SP 4CH (MOD) 74 ml - LA ESV SP 2CH (MOD) 103 ml - Name Value Normal Range MV E-wave Vmax 0.88 m/sec - MV deceleration time 228.2 msec - MV A-wave Vmax 1.06 m/sec - MV E:A ratio 0.82 ratio - LV septal e' Vmax 0.11 m/sec - LV lateral e' Vmax 0.11 m/sec - LV E:e' septal ratio 8 ratio - LV E:e' lateral ratio 8 ratio - Name Value Normal Range AV Vmax 1.2 m/sec - AV VTI 28 cm - AV peak gradient 5.62 mmHg - AV mean gradient 4.22 mmHg - LVOT Vmax 1.1 m/sec - LVOT VTI 22.67 cm - LVOT peak gradient 4.86 mmHg - LVOT mean gradient 2.97 mmHg - Name Value Normal Range IVC diameter 2.1 cm - Name Value Normal Range PV Vmax 0.76 m/sec - PV peak gradient 2.29 mmHg -
[2018-04-15] MEDS: Topiramate TAB(*) 25 MG PO SCH ×2 (08:47→21:09)
[2018-04-15] MEDS: Aspirin EC TAB* 81 MG TAB.EC PO SCH (08:48)
[2018-04-15] MEDS: Polyethylene Glycol 3350* 17 GM PACKET PO SCH (08:48)
[2018-04-15] MEDS: Niacin ER TAB* 500 MG PO SCH (08:48)
[2018-04-15] MEDS: Docusate CAP* 100 MG PO SCH ×2 (08:49→21:09)
[2018-04-15] MEDS ORDERED: Potassium Chlor TAB* 20 MEQ TAB.ER PO ONE (10:33)
--- NOTE | 2018-04-15 11:06 | PN ---
Subjective Date of Service: 04/15/18 Interval History: Pt is nonverbal, originally came to [facility] from [facility] over 20 yrs ago. As per information received from Tiffany TRUJILLO access rn pt at baseline eats regular diet and is able to feed himself and walk independently. Had been no acting like himself for several days with decreased appetite and not willing to get OOB in AM. Has had chronic diarrhea, but no BM for approx 2 days He is a vasquez of the [facility], but just recently, social workers found family in [place] that is very interested in pt's care Pt has chronic ecchymoses on b/l knees and cyanotic toes that had been there for "years" and are liking improved according to aide Objective Active Medications: Acetaminophen (Tylenol Tab*) 650 mg PO Q4H PRN PRN Reason: FEVER/PAIN Last Admin: 04/14/18 23:22 Dose: 650 mg Al Hydrox/Mg Hydrox/Simethicone (Maalox Plus*) 30 ml PO Q6H PRN PRN Reason: INDIGESTION Aspirin (Aspirin Ec Tab*) 81 mg PO DAILY [facility] Last Admin: 04/15/18 08:48 Dose: 81 mg Atorvastatin Calcium (Lipitor*) 80 mg PO 1700 [facility] Cetirizine HCl (Zyrtec*) 10 mg PO DAILY [facility] Last Admin: 04/15/18 08:42 Dose: 10 mg Chlorpromazine HCl (Thorazine Tab*) 25 mg PO Q6H PRN PRN Reason: AGITATION Last Admin: 04/14/18 17:25 Dose: 25 mg Chlorpromazine HCl (Thorazine Tab*) 25 mg PO QPM [facility] Last Admin: 04/14/18 21:24 Dose: 25 mg Clonazepam (Klonopin Tab(*)) 0.25 mg PO QAM [facility] Last Admin: 04/15/18 08:43 Dose: 0.25 mg Clonazepam (Klonopin Tab(*)) 0.5 mg PO BEDTIME [facility] Last Admin: 04/14/18 21:24 Dose: 0.5 mg Docusate Sodium (Colace Cap*) 200 mg PO BID [facility] Last Admin: 04/15/18 08:49 Dose: 200 mg Heparin Sodium (Porcine) (Heparin Vial(*)) 5,000 units SUBCUT Q8HR [facility] Last Admin: 04/15/18 05:59 Dose: 5,000 units Ceftriaxone Sodium 1 gm/ (Sodium Chloride) 50 mls @ 200 mls/hr IVPB Q24H [facility] Last Admin: 04/14/18 15:53 Dose: 200 mls/hr Azithromycin 500 mg/ Sodium (Chloride) 250 mls @ 250 mls/hr IVPB Q24H [facility] Last Admin: 04/14/18 16:27 Dose: 250 mls/hr Sodium Chloride (Ns 0.9% 1000 Ml*) 1,000 mls @ 100 mls/hr IV PER RATE [facility] Stop: 04/15/18 14:14 Last Admin: 04/15/18 04:21 Dose: 100 mls/hr Lactulose (Lactulose*) 30 ml PO DAILY [facility] Last Admin: 04/15/18 08:50 Dose: 30 ml Levothyroxine Sodium (Synthroid Tab*) 50 mcg PO QAM [facility] Last Admin: 04/15/18 08:42 Dose: 50 mcg Metoprolol Tartrate (Lopressor Tab*) 25 mg PO BID [facility] Last Admin: 04/15/18 08:43 Dose: 25 mg Niacin (Niaspan Er Tab*) 1,000 mg PO DAILY [facility] Last Admin: 04/15/18 08:48 Dose: 1,000 mg Polyethylene Glycol/Electrolytes (Miralax*) 17 gm PO DAILY [facility] Last Admin: 04/15/18 08:48 Dose: 17 gm Topiramate (Topamax(*)) 25 mg PO BID [facility] Last Admin: 04/15/18 08:47 Dose: 25 mg Vital Signs - 8 hr 04/15/18 04/15/18 04/15/18 03:16 04:00 05:00 Temperature 98.2 F Pulse Rate 96 Respiratory 26 25 Rate Blood Pressure (mmHg) O2 Sat by Pulse Oximetry 04/15/18 04/15/18 04/15/18 05:02 05:56 06:00 Temperature Pulse Rate 91 94 Respiratory 26 26 29 Rate Blood Pressure 161/78 155/60 153/68 (mmHg) O2 Sat by Pulse 96 94 Oximetry 04/15/18 04/15/18 04/15/18 07:00 07:26 08:00 Temperature 99.7 F Pulse Rate 86 88 Respiratory 28 33 Rate Blood Pressure 167/67 169/74 (mmHg) O2 Sat by Pulse 99 Oximetry 04/15/18 04/15/18 09:00 10:00 Temperature Pulse Rate 92 Respiratory 24 28 Rate Blood Pressure (mmHg) O2 Sat by Pulse 94 Oximetry Oxygen Devices in Use Now: None Appearance: 83 yo M in [place], nonverbal, not cooperatig with exam, occassionally hitting himself on the face(chronic behavior) Eyes: No Scleral Icterus, - - R eye mild ptosis , pupil at 2 mm, left eye pupil at 3 mm-both reactive to light Ears/Nose/Mouth/Throat: NL Teeth, Lips, Gums, Mucous Membranes Moist Neck: NL Appearance and Movements; NL JVP, Trachea Midline Respiratory: - - crackles at b/l bases Cardiovascular: NL Sounds; No Murmurs; No JVD, RRR Abdominal: - - distended, soft, probabaly tender, pt pulls the provider's hand away during exam, tympanic to precussion, no flank tenderness b/l Extremities: No Edema, - - b/l feet cyanotic, b/l knee ecchymoses L>R Skin: No Nodules or Sclerosis, - - see above Neurological: NL Muscle Strength and Tone, - - r eye ptosis Result Diagrams: 04/15/18 00:55 04/15/18 00:55 Additional Lab and Data: Lab Results 04/14/18 04/14/18 04/14/18 Range/Units 11:54 11:54 11:54 WBC 17.7 H (3.5-10.8) 10^3/ul RBC 5.53 H (4.00-5.40) 10^6/ul Hgb 17.0 (14.0-18.0) g/dl Hct 50 (42-52) % MCV 91 (80-94) fL MCH 31 (27-31) pg MCHC 34 (31-36) g/dl RDW 14 (10.5-15) % Plt Count 278 (150-450) 10^3/ul MPV 8.1 (7.4-10.4) um3 Neut % (Auto) 90.5 H (38-83) % Lymph % (Auto) 3.4 L (25-47) % [place] % (Auto) 6.0 (0-7) % Eos % (Auto) 0 (0-6) % Baso % (Auto) 0.1 (0-2) % Absolute Neuts (auto) 16.0 H (1.5-7.7) 10^3/ul Absolute Lymphs (auto) 0.6 L (1.0-4.8) 10^3/ul Absolute Monos (auto) 1.1 H (0-0.8) 10^3/ul Absolute Eos (auto) 0 (0-0.6) 10^3/ul Absolute Basos (auto) 0 (0-0.2) 10^3/ul Absolute Nucleated RBC 0.1 10^3/ul Nucleated RBC % 0.4 INR (Anticoag Therapy) 1.25 H (0.77-1.02) APTT 48.6 H (26.0-36.3) seconds Sodium 135 (135-145) mmol/L Potassium 4.1 (3.5-5.0) mmol/L Chloride 104 (101-111) mmol/L Carbon Dioxide 24 (22-32) mmol/L Anion Gap 7 (2-11) mmol/L BUN 30 H (6-24) mg/dL Creatinine 1.46 H (0.67-1.17) mg/dL Est GFR ( Amer) 56.1 (>60) Est GFR (Non-Af Amer) 46.3 (>60) BUN/Creatinine Ratio 20.5 H (8-20) Glucose 172 H (70-100) mg/dL Lactic Acid (0.5-2.0) mmol/L Calcium 9.8 (8.6-10.3) mg/dL Total Bilirubin 0.70 (0.2-1.0) mg/dL AST 27 (13-39) U/L ALT 22 (7-52) U/L Alkaline Phosphatase 95 (34-104) U/L Troponin I 1.23 H* (<0.04) ng/mL C-Reactive Protein 53.28 H (<8.01) mg/L B-Natriuretic Peptide ( - 100) pg/mL Total Protein 7.8 (6.4-8.9) g/dL Albumin 3.5 (3.2-5.2) g/dL Globulin 4.3 H (2-4) g/dL Albumin/Globulin Ratio 0.8 L (1-3) Urine Color Urine Appearance Urine pH (5-9) Ur Specific [place] (1.010-1.030) Urine Protein (Negative) Urine Ketones (Negative) Urine Blood (Negative) Urine Nitrate (Negative) Urine Bilirubin (Negative) Urine Urobilinogen (Negative) Ur Leukocyte Esterase (Negative) Urine WBC (Auto) (Absent) Urine RBC (Auto) (Absent) Ur Squamous Epith Cells (Absent) Urine Bacteria (Absent) Urine Glucose (Negative) 04/14/18 04/14/18 04/14/18 Range/Units 11:54 11:54 12:13 WBC (3.5-10.8) 10^3/ul RBC (4.00-5.40) 10^6/ul Hgb (14.0-18.0) g/dl Hct (42-52) % MCV (80-94) fL MCH (27-31) pg MCHC (31-36) g/dl RDW (10.5-15) % Plt Count (150-450) 10^3/ul MPV (7.4-10.4) um3 Neut % (Auto) (38-83) % Lymph % (Auto) (25-47) % [place] % (Auto) (0-7) % Eos % (Auto) (0-6) % Baso % (Auto) (0-2) % Absolute Neuts (auto) (1.5-7.7) 10^3/ul Absolute Lymphs (auto) (1.0-4.8) 10^3/ul Absolute Monos (auto) (0-0.8) 10^3/ul Absolute Eos (auto) (0-0.6) 10^3/ul Absolute Basos (auto) (0-0.2) 10^3/ul Absolute Nucleated RBC 10^3/ul Nucleated RBC % INR (Anticoag Therapy) (0.77-1.02) APTT (26.0-36.3) seconds Sodium (135-145) mmol/L Potassium (3.5-5.0) mmol/L Chloride (101-111) mmol/L Carbon Dioxide (22-32) mmol/L Anion Gap (2-11) mmol/L BUN (6-24) mg/dL Creatinine (0.67-1.17) mg/dL Est GFR ( Amer) (>60) Est GFR (Non-Af Amer) (>60) BUN/Creatinine Ratio (8-20) Glucose (70-100) mg/dL Lactic Acid 1.9 (0.5-2.0) mmol/L Calcium (8.6-10.3) mg/dL Total Bilirubin (0.2-1.0) mg/dL AST (13-39) U/L ALT (7-52) U/L Alkaline Phosphatase (34-104) U/L Troponin I (<0.04) ng/mL C-Reactive Protein (<8.01) mg/L B-Natriuretic Peptide 30 ( - 100) pg/mL Total Protein (6.4-8.9) g/dL Albumin (3.2-5.2) g/dL Globulin (2-4) g/dL Albumin/Globulin Ratio (1-3) Urine Color Yellow Urine Appearance Turbid Urine pH 7.0 (5-9) Ur Specific [place] 1.015 (1.010-1.030) Urine Protein 1+(30 mg/dl) A (Negative) Urine Ketones Negative (Negative) Urine Blood 1+ A (Negative) Urine Nitrate Negative (Negative) Urine Bilirubin Negative (Negative) Urine Urobilinogen Negative (Negative) Ur Leukocyte Esterase 3+ A (Negative) Urine WBC (Auto) 3+(>20/hpf) A (Absent) Urine RBC (Auto) 3+(>10/hpf) A (Absent) Ur Squamous Epith Cells Present A (Absent) Urine Bacteria Absent (Absent) Urine Glucose Negative (Negative) Microbiology and Other Data: Microbiology 04/14/18 12:13 Urine Culture - Preliminary Urine Enterococcus Faecalis 04/14/18 15:43 Nasal Screen MRSA (PCR) - Final Nasal Mrsa Not Detected Assess/Plan/Problems-Billing Assessment:83 yo M with h/o chronic diarrhea, profound MR(nonverbal, but able to walk and feed himself), psoriasis, b/l aortiliac syndrome, presents with change in behavior(not eating, not willing to get OOB) - Patient Problems (1) Sepsis Comment: appears to be related to UTI Pt had several incontinence episodes and the highest post void residual at 120 ml. Will get renal /bladder US to eval for obstruction cont Ceftriaxone, due to u. cx showing E. fecalis will add ampicillin Leukocytosis still increasing Awaiting cx (2) RENU (acute kidney injury) Comment: pt has CKD with creat at 1.2 at baseline Due to sepsis his creat is increased (3) Troponin level elevated Comment: D/w Dr. Schuster Likely ischemia in face of sepsis Echo shows good EF and no wall motion abn cont med tx with bb/statin/ASA (4) Abdominal distension Comment: no BM x 2 days, probable abd tenderness. Pt would not cooperate with CT scan. will administer Fleet, observe (5) Psoriasis Comment: oSnnyira held (6) DVT prophylaxis Comment: HSQ Status and Disposition: inpatient
[2018-04-15] MEDS ORDERED: Sodium Phosphate ADULT ENEMA* 118 ml bottle PR PRN (11:17)
[2018-04-15] MEDS ORDERED: Bisacodyl EC TAB* 5 MG PO PRN (11:17)
[2018-04-15] MEDS ORDERED: Zinc Oxide 16% PASTE* (Butt Paste) 1 TUBE TOPICAL PRN (11:17)
[2018-04-15] MEDS ORDERED: Al Hydrox/Mg Hydrox/Simet LIQ* 30 ML UDC PO PRN (11:17)
[2018-04-15] MEDS ORDERED: Ampicillin IV* 2 GM in NS 0.9% 100 ML* 100 ML IVPB SCH (12:00)
--- NOTE | 2018-04-15 12:23 | RAD ---
INDICATION: Sepsis, possible urinary obstruction. COMPARISON: Comparison is made with a prior CT of the abdomen and pelvis from March 08, 2015. TECHNIQUE: Multiple real-time images of the kidneys and urinary bladder were obtained. FINDINGS: The kidneys are normal in size shape and echogenicity. The right kidney measured 10.1 x 5.1 x 5.0 cm and the left kidney measured 10.6 x 4.7 x 4.4 cm. There is a slightly complex cyst present within the superior pole of the right kidney measuring 2.8 x 2.5 x 2.4 cm. This is present on the prior CT study and has increased slightly in size. No hydronephrosis is seen. The bladder wall is mildly thickened and slightly irregular suggestive of chronic outlet obstruction. The urinary jets were not visualized likely due to patient motion. The prostate gland measured 4.0 x 4.3 x 5.5 cm for a total volume of 49 ml. The bladder volume was 679 mL. The patient was unable to void during the study. IMPRESSION: 1. DISTENDED URINARY BLADDER. 2. ENLARGED PROSTATE GLAND AND THICK WALLED SLIGHTLY IRREGULAR BLADDER SUGGESTIVE OF CHRONIC OUTLET OBSTRUCTION. 3. SLIGHTLY COMPLEX RIGHT RENAL CYST, NO EVIDENCE FOR HYDRONEPHROSIS.
--- NOTE | 2018-04-15 12:49 | CONS ---
CC: Dr. Rivera CARDIOLOGY CONSULT REPORT: DATE OF CONSULT: 04/15/18 INDICATION FOR CONSULT: Abnormal troponin levels. HISTORY OF PRESENT ILLNESS: The patient is an 83-year-old gentleman with a history of severe mental retardation, history of chronic constipation, hypothyroidism, who was brought to the emergency room b ecause of decreased appetite. The patient had not slept well the last couple of nights and was not a cting himself and was brought to the emergency room. In the emergency room, he was found to have an elevated temperature at 101.4, mildly elevated leukocytosis, and elevated troponin level of 1.23. Hi s EKG showed no ischemic EKG changes. The patient was admitted to the intensive care unit overnight. He was given medications for presumed urosepsis. The patient's subsequent troponin levels were 1.39 , 2.08, and 1.95. Again, the patient is nonverbal and unable to give information as to his symptoms. His EKG showed no dramatic ischemic EKG changes. PAST MEDICAL HISTORY: Significant for chronic constipation, psoriasis, hypothyroidism, anxiety, depr ession, severe mental retardation. PAST SURGICAL HISTORY: Right hernia repair. OUTPATIENT MEDICATIONS: 1. Clonazepam 0.5 mg q.h.s. 2. Diprolene topical p.r.n. 3. Multiple topical steroids. 4. Lactulose 30 mg a day. 5. Thorazine 25 mg q.h.s. 6. Topamax 25 mg b.i.d. 7. Multivitamin a day. 8. Claritin 10 mg a day. 9. Levothyroxine 50 mcg a day. ALLERGIES: Intolerant of Augmentin. FAMILY HISTORY: Could not be obtained. SOCIAL HISTORY: The patient currently resides in a fdc. He has no access to tobacco or alcoh ol use. REVIEW OF SYSTEMS: Could not be obtained as the patient is nonverbal. PHYSICAL EXAM: Height is 5 feet 4 inches, weight 153 pounds. Temperature 99.7, heart rate is 86, bl ood pressure 153/68, respiratory rate is 27, oxygen saturation 99% on room air. Sclerae anicteric. Oropharynx is pink without erythema. Carotids are 2+, without bruits. JVD is normal. Thyroid is nor mal. Cardiac Exam: S1, S2, without any murmurs, rubs, or gallops. Lungs are clear to auscultation. Abdomen is soft, nontender, and nondistended with normoactive bowel sounds. Extremities show no edema . He has 2+ pulses in his dorsalis pedis and popliteal. The patient is awake and alert. The patient is unable to follow commands. DIAGNOSTIC STUDIES/LAB DATA: Chemistry is within normal limits. BUN 31, creatinine 1.14 which is sl ightly higher than his baseline of 1.2. Troponins are as described above. AST and ALT are normal. Total cholesterol 176, LDL 121. TSH is 0.94. CBC: White count 19.5, hemoglobin 14, hematocrit 43, platelet count 235. EKG demonstrates normal sinus rhythm with nonspecific T-wave abnormalities. His echocardiogram today demonstrated normal LV size and systolic function. No focal wall motion abn ormalities. The overall images were not good enough to rule out subtle focal wall motion abnormaliti es. No significant valvular abnormalities. IMPRESSION: This is an 83-year-old gentleman, who is admitted to the hospital with decreased appetit e and change in status. His troponin levels were mildly elevated. The patient is unable to give info rmation whether he had any symptoms or not. There was no clear evidence of tachypnea or diaphoresis. The patient's EKG shows no profound ischemic EKG changes. His echocardiogram shows grossly normal LV function without any obvious focal wall motion abnormaliti es. RECOMMENDATIONS: For now, my recommendation is to continue his treatment for his urosepsis. The patient will be on an aspirin a day. The patient will be started on low-dose beta blockers. At thi s point, I do not think any other cardiac testing is necessary. I am not sure the patient would tole rate stress testing, would certainly not tolerate a cardiac catheterization. [id number]/[facility] #: [id number]
[2018-04-15] MEDS ORDERED: Vancomycin(*) 1,000 MG in NS 0.9% 250 ML* 250 ML IVPB ONE (13:00)
[2018-04-15] MEDS ORDERED: KCL 20 MEQ/100 ML IVPREMIX* 20 MEQ/100 ML BAG IV ONE (13:00)
[2018-04-15] MEDS ORDERED: Vancomycin per Pharmacy* NOTE FOLLOW UP SCH (13:00)
[2018-04-15] MEDS: Atorvastatin* 80 MG TAB PO SCH (16:49)
[2018-04-15] MEDS: Acetaminophen TAB* 325 MG PO PRN (16:49)
[2018-04-15] MEDS: cefTRIAXone(*) 1 GM in NS 0.9% 50 ML* 50 ML IVPB SCH (17:11)
[2018-04-15] MEDS: chlorproMAZINE TAB* 25 MG PO SCH (18:21)
[2018-04-15] MEDS: Triamcinolone 0.025% OINT * 15 GM TUBE TOPICAL SCH (21:13)
[2018-04-15] MEDS: Bacitracin OINTMENT* 0.5% 0.5 oz TUBE TOPICAL PRN (21:13)
[2018-04-15] MEDS: HYDROCORTISONE TOPICAL SCH (21:17)
[2018-04-15] MEDS: CALCITRIOL TOPICAL SCH (21:17)
[2018-04-16] MEDS: Acetaminophen TAB* 325 MG PO PRN ×3 (04:44→23:28)
[2018-04-16] MEDS: Heparin VIAL(*) 5000 UNITS/ML VIAL (FIVE THOUSAND) SUBCUT SCH ×3 (05:42→20:32)
[2018-04-16] MEDS: Vancomycin(*) 750 MG in NS 0.9% 250 ML* 250 ML IVPB SCH ×2 (05:51→17:06)
[2018-04-16 06:29] LABS: Hematocrit 39 % (42-52); Hemoglobin 13.7 g/dl (14.0-18.0); Mean Corpuscular HGB Conc 35 g/dl (31-36); Mean Corpuscular Hemoglobin 31 pg (27-31); Mean Corpuscular Volume 89 fL (80-94); Platelet Count 186 10^3/ul (150-450); Red Cell Distribution Width 14 % (10.5-15); White Blood Count 14.1 10^3/ul (3.5-10.8)
[2018-04-16 06:34] LABS: ABS Basophils 0 10^3/ul (0-0.2); ABS Eosinophils 0 10^3/ul (0-0.6); ABS Lymphocytes 1.4 10^3/ul (1.0-4.8); ABS Monocytes 1.7 10^3/ul (0-0.8); ABS Neutrophils 10.9 10^3/ul (1.5-7.7); ABS Nucleated RBC 0 10^3/ul; Eosinophil % 0 % (0-6); Lymphocyte % 10.3 % (25-47); Nucleated Red Blood Cells % 0.1
[2018-04-16 07:08] LABS: EGFR Non-African American 59.2 (>60)
[2018-04-16] MEDS: CALCITRIOL TOPICAL SCH ×2 (07:47→20:36)
[2018-04-16] MEDS: HYDROCORTISONE TOPICAL SCH ×2 (07:47→20:36)
[2018-04-16] MEDS: MINERAL OIL OTIC SCH (07:48)
[2018-04-16] MEDS: Aspirin EC TAB* 81 MG TAB.EC PO SCH (09:42)
[2018-04-16] MEDS: clonazePAM TAB(*) 0.5 MG PO SCH ×2 (09:42→20:32)
[2018-04-16] MEDS: Metoprolol Tartrate TAB* 25 MG PO SCH ×2 (09:42→20:32)
[2018-04-16] MEDS: Cetirizine* 10 MG TAB PO SCH (09:43)
[2018-04-16] MEDS: Levothyroxine TAB* 50 MCG TAB PO SCH (09:44)
[2018-04-16] MEDS: Topiramate TAB(*) 25 MG PO SCH ×2 (09:44→20:32)
[2018-04-16] MEDS: Docusate CAP* 100 MG PO SCH ×2 (09:45→20:32)
[2018-04-16] MEDS: Polyethylene Glycol 3350* 17 GM PACKET PO SCH (09:48)
[2018-04-16] MEDS: Niacin ER TAB* 500 MG PO SCH (09:49)
[2018-04-16] MEDS: Triamcinolone 0.025% OINT * 15 GM TUBE TOPICAL SCH ×2 (09:54→20:35)
[2018-04-16] MEDS ORDERED: Magnesium Hydroxide LIQ* 30 ML UDC PO ONE (10:45)
[2018-04-16] MEDS ORDERED: Magnesium CITRATE* 300 ML BTL PO ONE (10:46)
--- NOTE | 2018-04-16 11:12 | PN ---
Subjective Date of Service: 04/16/18 Interval History: Pt had been refusing to take PO meds, but staff from [facility] brought his own cup and plate and he started eating and drinking. Tolerating Romero in place. No BM yet. Objective Active Medications: Acetaminophen (Tylenol Tab*) 650 mg PO Q4H PRN PRN Reason: FEVER/PAIN Last Admin: 04/16/18 09:45 Dose: 650 mg Al Hydrox/Mg Hydrox/Simethicone (Maalox Plus*) 30 ml PO Q6H PRN PRN Reason: INDIGESTION Al Hydrox/Mg Hydrox/Simethicone (Maalox Plus*) 10 ml PO ACHS PRN PRN Reason: INDIGESTION Aspirin (Aspirin Ec Tab*) 81 mg PO DAILY [facility] Last Admin: 04/16/18 09:42 Dose: 81 mg Atorvastatin Calcium (Lipitor*) 80 mg PO 1700 [facility] Last Admin: 04/15/18 16:49 Dose: 80 mg Bacitracin (Bacitracin Ointment*) 1 applic TOPICAL BID PRN PRN Reason: Skin Irritation Last Admin: 04/15/18 21:13 Dose: 1 applic Bisacodyl (Dulcolax Ec Tab*) 10 mg PO Q48H PRN PRN Reason: CONSTIPATION Cetirizine HCl (Zyrtec*) 10 mg PO DAILY [facility] Last Admin: 04/16/18 09:43 Dose: 10 mg Chlorpromazine HCl (Thorazine Tab*) 25 mg PO Q6H PRN PRN Reason: AGITATION Last Admin: 04/14/18 17:25 Dose: 25 mg Chlorpromazine HCl (Thorazine Tab*) 25 mg PO QPM [facility] Last Admin: 04/15/18 18:21 Dose: 25 mg Clonazepam (Klonopin Tab(*)) 0.25 mg PO QAM [facility] Last Admin: 04/16/18 09:42 Dose: 0.25 mg Clonazepam (Klonopin Tab(*)) 0.5 mg PO BEDTIME [facility] Last Admin: 04/15/18 21:08 Dose: 0.5 mg Docusate Sodium (Colace Cap*) 200 mg PO BID [facility] Last Admin: 04/16/18 09:45 Dose: 200 mg Heparin Sodium (Porcine) (Heparin Vial(*)) 5,000 units SUBCUT Q8HR [facility] Last Admin: 04/16/18 05:42 Dose: 5,000 units Ceftriaxone Sodium 1 gm/ (Sodium Chloride) 50 mls @ 200 mls/hr IVPB Q24H [facility] Last Admin: 04/15/18 17:11 Dose: 200 mls/hr Vancomycin HCl 750 mg/ Sodium (Chloride) 250 mls @ 166.667 mls/hr IVPB 0600, 1800 [facility] Last Admin: 04/16/18 05:51 Dose: 166.667 mls/hr Lactulose (Lactulose*) 30 ml PO DAILY [facility] Last Admin: 04/16/18 09:47 Dose: 30 ml Levothyroxine Sodium (Synthroid Tab*) 50 mcg PO QAM [facility] Last Admin: 04/16/18 09:44 Dose: 50 mcg Metoprolol Tartrate (Lopressor Tab*) 25 mg PO BID [facility] Last Admin: 04/16/18 09:42 Dose: 25 mg Niacin (Niaspan Er Tab*) 1,000 mg PO DAILY [facility] Last Admin: 04/16/18 09:49 Dose: 1,000 mg Pto: Calcitriol [ (Vectical] Ointment) 1 applic TOPICAL BID [facility] Last Admin: 04/16/18 07:47 Dose: Not Given Pto: Hydrocortisone (0.2% Ointment) 1 applic TOPICAL BID [facility] Last Admin: 04/16/18 07:47 Dose: Not Given Nf: Mineral Oil [ (Mineral Oil Heavy]) 3 drop OTIC DAILY [facility] Last Admin: 04/16/18 07:48 Dose: Not Given Pharmacy Consult (Vancomycin Per Pharmacy*) 1 note FOLLOW UP .VANC PER PHARMACY [facility] Pharmacy Profile Note (Vancomycin Trough Check) 1 note FOLLOW UP 1400 ONE Stop: 04/17/18 06:01 Polyethylene Glycol/Electrolytes (Miralax*) 17 gm PO DAILY [facility] Last Admin: 04/16/18 09:48 Dose: 17 gm Sodium Biphosphate/Sodium Phosphate (Fleet Enema*) 1 bottle OR Q72H PRN PRN Reason: CONSTIPATION Topiramate (Topamax(*)) 25 mg PO BID [facility] Last Admin: 04/16/18 09:44 Dose: 25 mg Triamcinolone Acetonide (Triamcinolone 0.025% Oint *) 1 applic TOPICAL BID [facility] Last Admin: 04/16/18 09:54 Dose: 1 applic Zinc Oxide (Shashi's Butt Paste) 1 applic TOPICAL TID PRN PRN Reason: Skin Irritation Last Admin: 04/15/18 21:14 Dose: 1 applic Vital Signs - 8 hr 04/16/18 04/16/18 04/16/18 04:42 07:50 08:24 Temperature 100.3 F 98.5 F Pulse Rate 93 84 Respiratory 20 20 16 Rate Blood Pressure 151/45 (mmHg) O2 Sat by Pulse 90 96 Oximetry 04/16/18 04/16/18 04/16/18 08:50 08:58 09:42 Temperature 97.9 F Pulse Rate 67 Respiratory 20 18 Rate Blood Pressure 81/48 139/68 (mmHg) O2 Sat by Pulse 96 Oximetry Oxygen Devices in Use Now: None Appearance: 83 yo M in nAD, nonverbal, occasionally hitting himself on the face , not cooperative with exam Eyes: No Scleral Icterus Ears/Nose/Mouth/Throat: NL Teeth, Lips, Gums, Mucous Membranes Moist Neck: NL Appearance and Movements; NL JVP, Trachea Midline Respiratory: Symmetrical Chest Expansion and Respiratory Effort, Clear to Auscultation Cardiovascular: NL Sounds; No Murmurs; No JVD, RRR Abdominal: No Hepatosplenomegaly, - - distended, soft, NT, BS+ Lymphatic: No Cervical Adenopathy Extremities: No Edema, No Clubbing, Cyanosis Skin: No Nodules or Sclerosis, - - ecchymoses on b/l knees-chronic as per RN Neurological: NL Muscle Strength and Tone, - - R eye ptosis, R puil smaller than R Result Diagrams: 04/16/18 06:12 04/16/18 06:12 Additional Lab and Data: Lab Results 04/14/18 04/14/18 04/14/18 Range/Units 11:54 11:54 11:54 WBC 17.7 H (3.5-10.8) 10^3/ul RBC 5.53 H (4.00-5.40) 10^6/ul Hgb 17.0 (14.0-18.0) g/dl Hct 50 (42-52) % MCV 91 (80-94) fL MCH 31 (27-31) pg MCHC 34 (31-36) g/dl RDW 14 (10.5-15) % Plt Count 278 (150-450) 10^3/ul MPV 8.1 (7.4-10.4) um3 Neut % (Auto) 90.5 H (38-83) % Lymph % (Auto) 3.4 L (25-47) % [place] % (Auto) 6.0 (0-7) % Eos % (Auto) 0 (0-6) % Baso % (Auto) 0.1 (0-2) % Absolute Neuts (auto) 16.0 H (1.5-7.7) 10^3/ul Absolute Lymphs (auto) 0.6 L (1.0-4.8) 10^3/ul Absolute Monos (auto) 1.1 H (0-0.8) 10^3/ul Absolute Eos (auto) 0 (0-0.6) 10^3/ul Absolute Basos (auto) 0 (0-0.2) 10^3/ul Absolute Nucleated RBC 0.1 10^3/ul Nucleated RBC % 0.4 INR (Anticoag Therapy) 1.25 H (0.77-1.02) APTT 48.6 H (26.0-36.3) seconds Sodium 135 (135-145) mmol/L Potassium 4.1 (3.5-5.0) mmol/L Chloride 104 (101-111) mmol/L Carbon Dioxide 24 (22-32) mmol/L Anion Gap 7 (2-11) mmol/L BUN 30 H (6-24) mg/dL Creatinine 1.46 H (0.67-1.17) mg/dL Est GFR ( Amer) 56.1 (>60) Est GFR (Non-Af Amer) 46.3 (>60) BUN/Creatinine Ratio 20.5 H (8-20) Glucose 172 H (70-100) mg/dL Lactic Acid (0.5-2.0) mmol/L Calcium 9.8 (8.6-10.3) mg/dL Total Bilirubin 0.70 (0.2-1.0) mg/dL AST 27 (13-39) U/L ALT 22 (7-52) U/L Alkaline Phosphatase 95 (34-104) U/L Troponin I 1.23 H* (<0.04) ng/mL C-Reactive Protein 53.28 H (<8.01) mg/L B-Natriuretic Peptide ( - 100) pg/mL Total Protein 7.8 (6.4-8.9) g/dL Albumin 3.5 (3.2-5.2) g/dL Globulin 4.3 H (2-4) g/dL Albumin/Globulin Ratio 0.8 L (1-3) Urine Color Urine Appearance Urine pH (5-9) Ur Specific [place] (1.010-1.030) Urine Protein (Negative) Urine Ketones (Negative) Urine Blood (Negative) Urine Nitrate (Negative) Urine Bilirubin (Negative) Urine Urobilinogen (Negative) Ur Leukocyte Esterase (Negative) Urine WBC (Auto) (Absent) Urine RBC (Auto) (Absent) Ur Squamous Epith Cells (Absent) Urine Bacteria (Absent) Urine Glucose (Negative) 04/14/18 04/14/18 04/14/18 Range/Units 11:54 11:54 12:13 WBC (3.5-10.8) 10^3/ul RBC (4.00-5.40) 10^6/ul Hgb (14.0-18.0) g/dl Hct (42-52) % MCV (80-94) fL MCH (27-31) pg MCHC (31-36) g/dl RDW (10.5-15) % Plt Count (150-450) 10^3/ul MPV (7.4-10.4) um3 Neut % (Auto) (38-83) % Lymph % (Auto) (25-47) % [place] % (Auto) (0-7) % Eos % (Auto) (0-6) % Baso % (Auto) (0-2) % Absolute Neuts (auto) (1.5-7.7) 10^3/ul Absolute Lymphs (auto) (1.0-4.8) 10^3/ul Absolute Monos (auto) (0-0.8) 10^3/ul Absolute Eos (auto) (0-0.6) 10^3/ul Absolute Basos (auto) (0-0.2) 10^3/ul Absolute Nucleated RBC 10^3/ul Nucleated RBC % INR (Anticoag Therapy) (0.77-1.02) APTT (26.0-36.3) seconds Sodium (135-145) mmol/L Potassium (3.5-5.0) mmol/L Chloride (101-111) mmol/L Carbon Dioxide (22-32) mmol/L Anion Gap (2-11) mmol/L BUN (6-24) mg/dL Creatinine (0.67-1.17) mg/dL Est GFR ( Amer) (>60) Est GFR (Non-Af Amer) (>60) BUN/Creatinine Ratio (8-20) Glucose (70-100) mg/dL Lactic Acid 1.9 (0.5-2.0) mmol/L Calcium (8.6-10.3) mg/dL Total Bilirubin (0.2-1.0) mg/dL AST (13-39) U/L ALT (7-52) U/L Alkaline Phosphatase (34-104) U/L Troponin I (<0.04) ng/mL C-Reactive Protein (<8.01) mg/L B-Natriuretic Peptide 30 ( - 100) pg/mL Total Protein (6.4-8.9) g/dL Albumin (3.2-5.2) g/dL Globulin (2-4) g/dL Albumin/Globulin Ratio (1-3) Urine Color Yellow Urine Appearance Turbid Urine pH 7.0 (5-9) Ur Specific [place] 1.015 (1.010-1.030) Urine Protein 1+(30 mg/dl) A (Negative) Urine Ketones Negative (Negative) Urine Blood 1+ A (Negative) Urine Nitrate Negative (Negative) Urine Bilirubin Negative (Negative) Urine Urobilinogen Negative (Negative) Ur Leukocyte Esterase 3+ A (Negative) Urine WBC (Auto) 3+(>20/hpf) A (Absent) Urine RBC (Auto) 3+(>10/hpf) A (Absent) Ur Squamous Epith Cells Present A (Absent) Urine Bacteria Absent (Absent) Urine Glucose Negative (Negative) Microbiology and Other Data: Microbiology 04/14/18 12:13 Urine Culture - Preliminary Urine Enterococcus Faecalis 04/14/18 15:43 Nasal Screen MRSA (PCR) - Final Nasal Mrsa Not Detected Assess/Plan/Problems-Billing Assessment:83 yo M with h/o chronic diarrhea, profound MR(nonverbal, but able to walk and feed himself), psoriasis, b/l aortiliac syndrome, presents with change in behavior(not eating, not willing to get OOB) - Patient Problems (1) Sepsis Comment: appears to be related to UTI Pt had several incontinence episodes and the highest post void residual at 120 ml, but renal/bladder US showed enlarged prostate and U retention. Romero placed on 04/15/18 U. cx showing E. fecalis -placed on Vancomycin on 04/15/18. Has unknown reaction to Augmentin. Will ask ID to see. (2) RENU (acute kidney injury) Comment: pt has CKD with creat at 1.2 at baseline Due to sepsis and U. retention his creat is increased, now normalized (3) Troponin level elevated Comment: D/w Dr. Schuster Likely ischemia in face of sepsis Echo shows good EF and no wall motion abn cont med tx with bb/statin/ASA (4) Abdominal distension Comment: no BM x 3 days, no abd tenderness. Pt would not cooperate with CT scan. will cont to tx with laxatives, encourage ambulation (5) Psoriasis Comment: Humira held (6) Urinary retention Comment: acute, due to BPH will start Flomax/Proscar.D/w urology-Dr. Davila, pt will Romero in at d/c and needs to be seen by urology a week after discharge. Antibiotics x 2 weeks May need TURP (7) DVT prophylaxis Comment: HSQ Status and Disposition: inpatient
[2018-04-16] MEDS: Finasteride TAB* 5 MG PO SCH (13:57)
[2018-04-16] MEDS: cefTRIAXone(*) 1 GM in NS 0.9% 50 ML* 50 ML IVPB SCH (15:16)
[2018-04-16] MEDS: chlorproMAZINE TAB* 25 MG PO SCH (17:06)
[2018-04-16] MEDS: Atorvastatin* 80 MG TAB PO SCH (17:06)
[2018-04-16] MEDS: Bacitracin OINTMENT* 0.5% 0.5 oz TUBE TOPICAL PRN (20:36)
[2018-04-17 05:46] LABS: ABS Basophils 0 10^3/ul (0-0.2); ABS Eosinophils 0 10^3/ul (0-0.6); ABS Lymphocytes 1.7 10^3/ul (1.0-4.8); ABS Monocytes 1.4 10^3/ul (0-0.8); ABS Neutrophils 6.3 10^3/ul (1.5-7.7); ABS Nucleated RBC 0 10^3/ul; Eosinophil % 0 % (0-6); Hematocrit 39 % (42-52); Hemoglobin 13.7 g/dl (14.0-18.0); Lymphocyte % 17.9 % (25-47); Mean Corpuscular HGB Conc 36 g/dl (31-36); Mean Corpuscular Hemoglobin 32 pg (27-31); Mean Corpuscular Volume 89 fL (80-94); Nucleated Red Blood Cells % 0.1; Platelet Count 201 10^3/ul (150-450); Red Blood Count 4.34 10^6/ul (4.00-5.40); Red Cell Distribution Width 14 % (10.5-15); White Blood Count 9.5 10^3/ul (3.5-10.8)
[2018-04-17] MEDS ORDERED: Vancomycin Trough Check NOTE FOLLOW UP ONE (06:00)
[2018-04-17] MEDS: Vancomycin(*) 750 MG in NS 0.9% 250 ML* 250 ML IVPB SCH (06:01)
[2018-04-17] MEDS: Heparin VIAL(*) 5000 UNITS/ML VIAL (FIVE THOUSAND) SUBCUT SCH ×3 (06:01→20:19)
[2018-04-17 06:03] LABS: EGFR Non-African American 67.8 (>60)
[2018-04-17] MEDS: CALCITRIOL TOPICAL SCH ×2 (08:32→20:12)
[2018-04-17] MEDS: HYDROCORTISONE TOPICAL SCH ×2 (08:33→20:17)
[2018-04-17] MEDS: MINERAL OIL OTIC SCH (08:33)
[2018-04-17] MEDS: Niacin ER TAB* 500 MG PO SCH (08:36)
[2018-04-17] MEDS: Aspirin EC TAB* 81 MG TAB.EC PO SCH (08:36)
[2018-04-17] MEDS: Docusate CAP* 100 MG PO SCH ×2 (08:37→20:17)
[2018-04-17] MEDS: Tamsulosin CAP* 0.4 MG PO SCH (08:37)
[2018-04-17] MEDS: Topiramate TAB(*) 25 MG PO SCH ×2 (08:37→20:18)
[2018-04-17] MEDS: clonazePAM TAB(*) 0.5 MG PO SCH ×2 (08:37→20:16)
[2018-04-17] MEDS: Finasteride TAB* 5 MG PO SCH (08:38)
[2018-04-17] MEDS: Cetirizine* 10 MG TAB PO SCH (08:38)
[2018-04-17] MEDS: Metoprolol Tartrate TAB* 25 MG PO SCH ×2 (08:38→20:18)
[2018-04-17] MEDS: Levothyroxine TAB* 50 MCG TAB PO SCH (08:38)
[2018-04-17] MEDS: Polyethylene Glycol 3350* 17 GM PACKET PO SCH (08:59)
[2018-04-17] MEDS: Linezolid 600 MG IVPREMIX(*) 600 MG/300 ML BAG IVPB SCH ×2 (09:11→20:17)
[2018-04-17] MEDS: Triamcinolone 0.025% OINT * 15 GM TUBE TOPICAL SCH ×2 (09:15→20:19)
--- NOTE | 2018-04-17 11:47 | PN ---
Subjective Date of Service: 04/17/18 Interval History: Pt ate well last night and had a BM and "lots of gas". Behaviorally back to his baseline: occasionally hitting his face, not cooperative with eval, nonverbal Objective Active Medications: Acetaminophen (Tylenol Tab*) 650 mg PO Q4H PRN PRN Reason: FEVER/PAIN Last Admin: 04/16/18 23:28 Dose: 650 mg Al Hydrox/Mg Hydrox/Simethicone (Maalox Plus*) 30 ml PO Q6H PRN PRN Reason: INDIGESTION Al Hydrox/Mg Hydrox/Simethicone (Maalox Plus*) 10 ml PO ACHS PRN PRN Reason: INDIGESTION Aspirin (Aspirin Ec Tab*) 81 mg PO DAILY [facility] Last Admin: 04/17/18 08:36 Dose: 81 mg Atorvastatin Calcium (Lipitor*) 80 mg PO 1700 [facility] Last Admin: 04/16/18 17:06 Dose: 80 mg Bacitracin (Bacitracin Ointment*) 1 applic TOPICAL BID PRN PRN Reason: Skin Irritation Last Admin: 04/16/18 20:36 Dose: 1 applic Bisacodyl (Dulcolax Ec Tab*) 10 mg PO Q48H PRN PRN Reason: CONSTIPATION Cetirizine HCl (Zyrtec*) 10 mg PO DAILY [facility] Last Admin: 04/17/18 08:38 Dose: Not Given Chlorpromazine HCl (Thorazine Tab*) 25 mg PO Q6H PRN PRN Reason: AGITATION Last Admin: 04/14/18 17:25 Dose: 25 mg Chlorpromazine HCl (Thorazine Tab*) 25 mg PO QPM [facility] Last Admin: 04/16/18 17:06 Dose: 25 mg Clonazepam (Klonopin Tab(*)) 0.25 mg PO QAM [facility] Last Admin: 04/17/18 08:37 Dose: 0.25 mg Clonazepam (Klonopin Tab(*)) 0.5 mg PO BEDTIME [facility] Last Admin: 04/16/18 20:32 Dose: 0.5 mg Docusate Sodium (Colace Cap*) 200 mg PO BID [facility] Last Admin: 04/17/18 08:37 Dose: 100 mg Finasteride (Proscar Tab*) 5 mg PO DAILY [facility] Last Admin: 04/17/18 08:38 Dose: 5 mg Heparin Sodium (Porcine) (Heparin Vial(*)) 5,000 units SUBCUT Q8HR [facility] Last Admin: 04/17/18 06:01 Dose: 5,000 units Linezolid (Zyvox 600 Mg Ivpremix(*)) 600 mg in 300 mls @ 300 mls/hr IVPB Q12H [facility] Last Admin: 04/17/18 09:11 Dose: 300 mls/hr Lactulose (Lactulose*) 30 ml PO DAILY [facility] Last Admin: 04/17/18 08:44 Dose: Not Given Levothyroxine Sodium (Synthroid Tab*) 50 mcg PO QAM [facility] Last Admin: 04/17/18 08:38 Dose: 50 mcg Metoprolol Tartrate (Lopressor Tab*) 25 mg PO BID [facility] Last Admin: 04/17/18 08:38 Dose: 25 mg Niacin (Niaspan Er Tab*) 1,000 mg PO DAILY [facility] Last Admin: 04/17/18 08:36 Dose: 1,000 mg Pto: Calcitriol [ (Vectical] Ointment) 1 applic TOPICAL BID [facility] Last Admin: 04/17/18 08:32 Dose: Not Given Pto: Hydrocortisone (0.2% Ointment) 1 applic TOPICAL BID [facility] Last Admin: 04/17/18 08:33 Dose: Not Given Nf: Mineral Oil [ (Mineral Oil Heavy]) 3 drop OTIC DAILY [facility] Last Admin: 04/17/18 08:33 Dose: Not Given Polyethylene Glycol/Electrolytes (Miralax*) 17 gm PO DAILY [facility] Last Admin: 04/17/18 08:59 Dose: 17 gm Sodium Biphosphate/Sodium Phosphate (Fleet Enema*) 1 bottle TN Q72H PRN PRN Reason: CONSTIPATION Tamsulosin HCl (Flomax Cap*) 0.4 mg PO DAILY [facility] Last Admin: 04/17/18 08:37 Dose: 0.4 mg Topiramate (Topamax(*)) 25 mg PO BID [facility] Last Admin: 04/17/18 08:37 Dose: 25 mg Triamcinolone Acetonide (Triamcinolone 0.025% Oint *) 1 applic TOPICAL BID [facility] Last Admin: 04/17/18 09:15 Dose: 1 applic Zinc Oxide (Shashi's Butt Paste) 1 applic TOPICAL TID PRN PRN Reason: Skin Irritation Last Admin: 04/15/18 21:14 Dose: 1 applic Vital Signs - 8 hr 04/17/18 04/17/18 04/17/18 08:00 08:37 11:04 Pulse Rate 67 Respiratory 24 24 28 Rate Blood Pressure 172/63 (mmHg) O2 Sat by Pulse 99 Oximetry Oxygen Devices in Use Now: None Appearance: 83 yo M, nonverbal, not cooperating with exam Eyes: No Scleral Icterus, PERRLA Ears/Nose/Mouth/Throat: NL Teeth, Lips, Gums, Mucous Membranes Moist Neck: NL Appearance and Movements; NL JVP, Trachea Midline Respiratory: Symmetrical Chest Expansion and Respiratory Effort Cardiovascular: NL Sounds; No Murmurs; No JVD, RRR Abdominal: No Hepatosplenomegaly, - Lymphatic: No Cervical Adenopathy Extremities: No Clubbing, Cyanosis Skin: - - b/l knee ecchymoses-chronic as per aides Neurological: NL Muscle Strength and Tone, - - nonverbal Result Diagrams: 04/17/18 05:30 04/17/18 05:30 Additional Lab and Data: Lab Results 04/14/18 04/14/18 04/14/18 Range/Units 11:54 11:54 11:54 WBC 17.7 H (3.5-10.8) 10^3/ul RBC 5.53 H (4.00-5.40) 10^6/ul Hgb 17.0 (14.0-18.0) g/dl Hct 50 (42-52) % MCV 91 (80-94) fL MCH 31 (27-31) pg MCHC 34 (31-36) g/dl RDW 14 (10.5-15) % Plt Count 278 (150-450) 10^3/ul MPV 8.1 (7.4-10.4) um3 Neut % (Auto) 90.5 H (38-83) % Lymph % (Auto) 3.4 L (25-47) % [place] % (Auto) 6.0 (0-7) % Eos % (Auto) 0 (0-6) % Baso % (Auto) 0.1 (0-2) % Absolute Neuts (auto) 16.0 H (1.5-7.7) 10^3/ul Absolute Lymphs (auto) 0.6 L (1.0-4.8) 10^3/ul Absolute Monos (auto) 1.1 H (0-0.8) 10^3/ul Absolute Eos (auto) 0 (0-0.6) 10^3/ul Absolute Basos (auto) 0 (0-0.2) 10^3/ul Absolute Nucleated RBC 0.1 10^3/ul Nucleated RBC % 0.4 INR (Anticoag Therapy) 1.25 H (0.77-1.02) APTT 48.6 H (26.0-36.3) seconds Sodium 135 (135-145) mmol/L Potassium 4.1 (3.5-5.0) mmol/L Chloride 104 (101-111) mmol/L Carbon Dioxide 24 (22-32) mmol/L Anion Gap 7 (2-11) mmol/L BUN 30 H (6-24) mg/dL Creatinine 1.46 H (0.67-1.17) mg/dL Est GFR ( Amer) 56.1 (>60) Est GFR (Non-Af Amer) 46.3 (>60) BUN/Creatinine Ratio 20.5 H (8-20) Glucose 172 H (70-100) mg/dL Lactic Acid (0.5-2.0) mmol/L Calcium 9.8 (8.6-10.3) mg/dL Total Bilirubin 0.70 (0.2-1.0) mg/dL AST 27 (13-39) U/L ALT 22 (7-52) U/L Alkaline Phosphatase 95 (34-104) U/L Troponin I 1.23 H* (<0.04) ng/mL C-Reactive Protein 53.28 H (<8.01) mg/L B-Natriuretic Peptide ( - 100) pg/mL Total Protein 7.8 (6.4-8.9) g/dL Albumin 3.5 (3.2-5.2) g/dL Globulin 4.3 H (2-4) g/dL Albumin/Globulin Ratio 0.8 L (1-3) Urine Color Urine Appearance Urine pH (5-9) Ur Specific [place] (1.010-1.030) Urine Protein (Negative) Urine Ketones (Negative) Urine Blood (Negative) Urine Nitrate (Negative) Urine Bilirubin (Negative) Urine Urobilinogen (Negative) Ur Leukocyte Esterase (Negative) Urine WBC (Auto) (Absent) Urine RBC (Auto) (Absent) Ur Squamous Epith Cells (Absent) Urine Bacteria (Absent) Urine Glucose (Negative) 04/14/18 04/14/18 04/14/18 Range/Units 11:54 11:54 12:13 WBC (3.5-10.8) 10^3/ul RBC (4.00-5.40) 10^6/ul Hgb (14.0-18.0) g/dl Hct (42-52) % MCV (80-94) fL MCH (27-31) pg MCHC (31-36) g/dl RDW (10.5-15) % Plt Count (150-450) 10^3/ul MPV (7.4-10.4) um3 Neut % (Auto) (38-83) % Lymph % (Auto) (25-47) % [place] % (Auto) (0-7) % Eos % (Auto) (0-6) % Baso % (Auto) (0-2) % Absolute Neuts (auto) (1.5-7.7) 10^3/ul Absolute Lymphs (auto) (1.0-4.8) 10^3/ul Absolute Monos (auto) (0-0.8) 10^3/ul Absolute Eos (auto) (0-0.6) 10^3/ul Absolute Basos (auto) (0-0.2) 10^3/ul Absolute Nucleated RBC 10^3/ul Nucleated RBC % INR (Anticoag Therapy) (0.77-1.02) APTT (26.0-36.3) seconds Sodium (135-145) mmol/L Potassium (3.5-5.0) mmol/L Chloride (101-111) mmol/L Carbon Dioxide (22-32) mmol/L Anion Gap (2-11) mmol/L BUN (6-24) mg/dL Creatinine (0.67-1.17) mg/dL Est GFR ( Amer) (>60) Est GFR (Non-Af Amer) (>60) BUN/Creatinine Ratio (8-20) Glucose (70-100) mg/dL Lactic Acid 1.9 (0.5-2.0) mmol/L Calcium (8.6-10.3) mg/dL Total Bilirubin (0.2-1.0) mg/dL AST (13-39) U/L ALT (7-52) U/L Alkaline Phosphatase (34-104) U/L Troponin I (<0.04) ng/mL C-Reactive Protein (<8.01) mg/L B-Natriuretic Peptide 30 ( - 100) pg/mL Total Protein (6.4-8.9) g/dL Albumin (3.2-5.2) g/dL Globulin (2-4) g/dL Albumin/Globulin Ratio (1-3) Urine Color Yellow Urine Appearance Turbid Urine pH 7.0 (5-9) Ur Specific [place] 1.015 (1.010-1.030) Urine Protein 1+(30 mg/dl) A (Negative) Urine Ketones Negative (Negative) Urine Blood 1+ A (Negative) Urine Nitrate Negative (Negative) Urine Bilirubin Negative (Negative) Urine Urobilinogen Negative (Negative) Ur Leukocyte Esterase 3+ A (Negative) Urine WBC (Auto) 3+(>20/hpf) A (Absent) Urine RBC (Auto) 3+(>10/hpf) A (Absent) Ur Squamous Epith Cells Present A (Absent) Urine Bacteria Absent (Absent) Urine Glucose Negative (Negative) Microbiology and Other Data: Microbiology 04/14/18 12:13 Urine Culture - Preliminary Urine Enterococcus Faecalis 04/14/18 15:43 Nasal Screen MRSA (PCR) - Final Nasal Mrsa Not Detected Assess/Plan/Problems-Billing Assessment:83 yo M with h/o chronic diarrhea, profound MR(nonverbal, but able to walk and feed himself), psoriasis, b/l aortiliac syndrome, presents with change in behavior(not eating, not willing to get OOB) - Patient Problems (1) Sepsis Comment: appears to be related to UTI Pt had several incontinence episodes and the highest post void residual at 120 ml, but renal/bladder US showed enlarged prostate and U retention. Romero placed on 04/15/18 U. cx showing E. fecalis -placed on Vancomycin on 04/15/18. Has unknown reaction to Augmentin. D/w ID and started Linezolid. Ad per Dw/ DR. Davila pt should continue antibiotcs x 2 weeks total (2) RENU (acute kidney injury) Comment: pt has CKD with creat at 1.2 at baseline Due to sepsis and U. retention his creat is increased, now normalized (3) Troponin level elevated Comment: D/w Dr. Schuster Likely ischemia in face of sepsis Echo shows good EF and no wall motion abn cont med tx with bb/statin/ASA As per DR. Garcia'd note pt is at moderate risk for OR cardiac complications if he were to undergo TURP in the future, but there are no modifiable factors at this point and no further testing is needed. (4) Abdominal distension Comment: constipation resolving. Ambulation encouraged (5) Psoriasis Comment: Elsy held (6) Urinary retention Comment: acute, due to BPH started Flomax/Proscar. D/w urology-Dr. Davila, pt will need Romero in at d/c and needs to be seen by urology a week after discharge. Antibiotics x 2 weeks May need TURP (7) DVT prophylaxis Comment: HSQ Status and Disposition: inpatient. Due to fever last night will monitor one more day, possible D/c back to [facility] tomorrow
[2018-04-17] MEDS: Atorvastatin* 80 MG TAB PO SCH ×2 (18:14→19:14)
[2018-04-17] MEDS: chlorproMAZINE TAB* 25 MG PO SCH ×2 (18:14→19:14)
[2018-04-17] MEDS ORDERED: NS 0.9% 1000 ML* 1,000 ML IV SCH (19:00)
[2018-04-17] MEDS: chlorproMAZINE TAB* 25 MG PO PRN (22:03)
[2018-04-17] MEDS ORDERED: chlorproMAZINE INJ* 25 MG/ML 2 ML (50 MG) IV ONE (22:16)
[2018-04-17] MEDS ORDERED: NS 0.9% IV ONE (23:00)
[2018-04-17] MEDS ORDERED: CHLORPROMAZINE IV ONE (23:00)
[2018-04-18] MEDS: Heparin VIAL(*) 5000 UNITS/ML VIAL (FIVE THOUSAND) SUBCUT SCH (05:41)
[2018-04-18 09:40] VITALS: BP 138/54
[2018-04-18] MEDS: clonazePAM TAB(*) 0.5 MG PO SCH (09:46)
[2018-04-18] MEDS: Docusate CAP* 100 MG PO SCH (09:47)
[2018-04-18] MEDS: Aspirin EC TAB* 81 MG TAB.EC PO SCH (09:48)
[2018-04-18] MEDS: Cetirizine* 10 MG TAB PO SCH (09:48)
[2018-04-18] MEDS: Levothyroxine TAB* 50 MCG TAB PO SCH (09:48)
[2018-04-18] MEDS: Finasteride TAB* 5 MG PO SCH (09:49)
[2018-04-18] MEDS: Metoprolol Tartrate TAB* 25 MG PO SCH (09:50)
[2018-04-18] MEDS ORDERED: Linezolid TAB* 600 MG PO SCH (10:00)
[2018-04-18] MEDS: CALCITRIOL TOPICAL SCH (10:02)
[2018-04-18] MEDS: MINERAL OIL OTIC SCH (10:03)
[2018-04-18] MEDS: Polyethylene Glycol 3350* 17 GM PACKET PO SCH (10:04)
[2018-04-18] MEDS: Niacin ER TAB* 500 MG PO SCH (10:04)
[2018-04-18] MEDS: Tamsulosin CAP* 0.4 MG PO SCH (10:05)
[2018-04-18] MEDS: Triamcinolone 0.025% OINT * 15 GM TUBE TOPICAL SCH (10:06)
[2018-04-18] MEDS: HYDROCORTISONE TOPICAL SCH (10:06)
[2018-04-18] MEDS: Topiramate TAB(*) 25 MG PO SCH (10:06)
[2018-04-18] MEDS: Linezolid 600 MG IVPREMIX(*) 600 MG/300 ML BAG IVPB SCH (10:31)
--- NOTE | 2018-04-18 11:49 | PN ---
Progress Note - Progress Note Date of Service: 04/18/18 Note: Time spent on discharge 45 minutes.
--- NOTE | 2018-04-18 14:32 | DS ---
CC: Dr. Elliot Rivera* DISCHARGE SUMMARY: DATE OF ADMISSION: 04/14/18 DATE OF DISCHARGE: 04/18/18 HISTORY: This 83-year-old man was admitted with sepsis. His chief complaint was decreased appetite and fatigue. His temperature in the emergency room was 101.4. The patient is nonverbal and unable to give any history. It was also noted his troponin was 1.23 in the emergency room. The troponin levels were followed and peaked at about 2, was seen in consultation by Dr. Schuster. He did have an echocardiogram on 04/14/18. The study was technically difficult due to the patient's lack of cooperation. The estimated ejection fraction was 60% to 65%, no wall motion abnormalities were detected. Dr. Schuster saw the patient in consultation, his handwritten note states that " the patient may need to go to OR for TURP. The patient would be at moderately increased risk for cardiac complications given recent troponin elevation, would normally get stress test to better risk stratify, but the patient will not be able to complete test. Recommend beta garrick or aspirin if it can be continued." The patient was found to have a urinary tract infection with enterococcus. He also had urinary retention on bladder ultrasound. The bladder volume was 679 mL on the ultrasound on 04/15/18. A Romero catheter was inserted, Dr. Davila will follow him up in a week in the office. The patient was initially given vancomycin, changed to linezolid. He will have 2 weeks of linezolid as an outpatient. FINAL DIAGNOSES: 1. Sepsis due to urinary tract infection with enterococcus. 2. Urinary retention. 3. Acute kidney injury. 4. Acute coronary syndrome. 5. Psoriasis. DISCHARGE MEDICATIONS: 1. Atorvastatin 80 mg daily at 5 p.m. 2. Linezolid 600 mg every 12 hours. 3. Metoprolol 25 mg b.i.d. 4. Tamsulosin 0.4 mg daily. 5. Finasteride 5 mg daily. 6. Triamcinolone 0.1% b.i.d. to affected areas. 7. Aspirin 81 mg daily. 8. Chlorpromazine 25 mg h.s. 9. Topiramate 25 mg b.i.d. 10. Docusate 200 mg b.i.d. 11. Clonazepam 0.5 mg h.s. 12. Calcitriol 1 application twice daily. 13. Loratadine 10 mg daily. 14. Levothyroxine 50 mcg daily. 15. Artificial tears both eyes four times a day. 16. Multiple vitamin with mineral daily. 17. Betamethasone 1 application b.i.d. 18. Ibuprofen 400 mg daily. 19. Niacin ER 1000 mg daily. 20. Lactulose 30 mL daily. 21. Vitamin A and D ointment b.i.d. p.r.n. 22. Tarsum gel/shampoo daily. 23. Zincon Dandruff 1 application daily. 24. Nasal Moist gel 1 application twice daily. 25. Hydrocortisone 0.25% topically twice daily. 26. Deep saline nasal spray every day. 27. Chlorhexidine gluconate 1 oral dose b.i.d. 28. Bacitracin applied twice daily p.r.n. 29. Humira is on hold until this acute illness has been resolved completely. 30. Clonazepam 0.25 mg daily. 31. Mineral oil 3 drops in the eye daily. [id number]/[facility] #: [id number] [facility]
== END 2018-04-18 13:54 | disposition home or self-care (01) | DRG 872 ==
LOC: ED 10:05 → ICU 14:08 → MEDTELE 04-15 18:17
PROVIDERS: ADMIT Internal Medicine; ATTEND Internal Medicine
DX: A41.9 Sepsis, unspecified organism (principal); N39.0 Urinary tract infection, site not specified; F72 Severe intellectual disabilities; N17.9 Acute kidney failure, unspecified; I24.9 Acute ischemic heart disease, unspecified; G51.0 Bell's palsy; F41.9 Anxiety disorder, unspecified; H26.9 Unspecified cataract; E86.0 Dehydration; I70.0 Atherosclerosis of aorta; K59.09 Other constipation; E03.9 Hypothyroidism, unspecified; L40.9 Psoriasis, unspecified; K40.90 Unilateral inguinal hernia, without obstruction or gangrene, not specified as recurrent; F32.9 Major depressive disorder, single episode, unspecified; K52.9 Noninfective gastroenteritis and colitis, unspecified; R58 Hemorrhage, not elsewhere classified; H02.401 Unspecified ptosis of right eyelid; N40.1 Benign prostatic hyperplasia with lower urinary tract symptoms; R33.8 Other retention of urine; I12.9 Hypertensive chronic kidney disease with stage 1 through stage 4 chronic kidney disease, or unspecified chronic kidney disease; N18.9 Chronic kidney disease, unspecified; B95.2 Enterococcus as the cause of diseases classified elsewhere; Z88.1 Allergy status to other antibiotic agents; Z88.0 Allergy status to penicillin; Z86.11 Personal history of tuberculosis; Z82.49 Family history of ischemic heart disease and other diseases of the circulatory system; Z79.82 Long term (current) use of aspirin
CPT/HCPCS: 36415; 71046; 76770; 80048; 80053; 80061; 80202; 81003; 81015; 83605; 83880; 84145; 84443; 84484; 85025; 85610; 85730; 86140; 87040; 87077; 87086; 87186; 87641; 93005; 93306; 99284; A9270-GY; J0456; J0696; J1644; J1885; J2020; J3370; J3480

== ENCOUNTER 2018-05-18 10:15 | Emergency (ER) | payer MEDICARE, MEDICAID ==
--- OUTSIDE RECORDS SUMMARY | 2018-05-18 10:23 | XMS REPORT ---
:1935 External Reference #:[id number] Author Organization [facility] Address [address] [place] [address] Phone [phone] Care Team Providers Name Role Phone HCP given Primary Care Physician Unavailable Payers Type Date Identification Numbers Payment Provider Subscriber Medicare Primary Policy Number: [id number] [facility] Leyla Carranza Services PayID: [id number] [facility] [address] Policy Number: [id number] Medicaid Leyla Carranza Group Name: [address] [facility] PayID: [id number] [place] [address] Problems Date Description Provider Status Onset: 02/10/2004 Hypothyroidism Max Whitlock M.D. Active Onset: 02/10/2004 Allergic rhinitis due to pollen Max Whitlock M.D. Active Onset: 04/08/2007 Benign prostatic hypertrophy Max Whitlock M.D. Active without outflow obstruction Onset: 07/01/2007 Constipation Max Whitlock M.D. Active Onset: 01/11/2004 Psoriasis Max Whitlock M.D. 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 Active Onset: 08/14/2014 Tear film insufficiency Elliot Rivera D.O. Active Onset: 03/15/2015 Atherosclerosis of aorta Elliot Rivera D.O. Active Onset: 03/30/2016 Heart murmur Elliot Rivera D.O. 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 Active Onset: 02/12/2017 Allergic rhinitis Elliot Rivera D.O. Active Onset: 03/06/2006 Constipation Max Whitlock M.D. Inactive Inactive: 07/01/2007 Family History Date Family Member(s) Problem(s) Comments General Unremarkable no contact and no information Social History Type Date Description Comments Smoke-Free Home is smoke-free General Resident of [facility] Cigarette Use Denies Cigarette Use Cigarette Use 07/04/2011 Tobacco Of Any Kind Denies Use ETOH Use Denies alcohol use Smoking Non Smoker / No Tobacco Exercise Type/Frequency Exercises sporadically Allergies, Adverse Reactions, Alerts Date Description Reaction Status Severity Comments 03/02/2005 Augmentin REACTION UNKNOWN WAS ON FILE ON ADM active TO [facility] Medications Medication Date Status Form Strength Qnty SIG Indications Ordering Provider Atorvastatin 04/18 Active Tablets 80mg 1 by mouth E78.4 Unknown Calcium every evening at 5 pm Metoprolol 04/18 Active Tablets 25mg 1 by mouth Unknown twice a day Tamsulosin HCL 04/18 Active Capsules 0.4mg 1 by mouth Unknown every day Finasteride 04/18 Active Tablets 5mg 1 by mouth Unknown every day Lactulose 04/18 Active Solution 10GM/15ML use as directed (with goal of having 2 soft bms/day) 30 ml daily Chlorhexidine 04/18 Active Solution 0.12% 1 oral dose Unknown Gluc bid Miralax 03/21 Active Powder 527GM 527un 1 Capful its (17GM=20cc) Elliot, 8 Oz Of D.O. Fluid By Mouth Every Day Hold For > 3 Stools/Day/ Diarrhea (Constipati on) Zincon 1% 06/26 Active Shampoo 118un Use 3 Times its Weekly Elliot, D.O. Bacitracin 05/15 Active Ointment 500Unit/G apply small Unknown (External) M amount to affected area twice daily as needed for minor skin abrasions/o pen sores Acetaminophen 05/15 Active Tablets 325mg 2 by mouth every 4 Elliot, hours as D.O. needed for pain or fever >101 Calcitriol 04/18 Active Ointment 3mcg/GM apply to legs psoriasis twice daily and rub in well Deep Sea Nasal 03/15 Active Solution 0.65% 44ml instill chak, [place] into each Elliot, nostril D.O. daily Cerave 02/05 Active Cream 453un Apply To its Body Twice Elliot, Daily (Dry D.O. Skin) Am=After Bath/ PM=Before Bed Claritin 10MG 10/25 Active 30uni Take 1 cha, Tab ts Tablet By Elliot, Mouth Every D.O. Day (For Allergies) Chlorpromazine 09/22 Active Tablets 25mg 1 tablet po V40.3 Unknown in the evening at bedtime Colace 100MG 09/12 Active 120un Take 2 K59.01 [facility], Cap its Capsules By Elliot, Mouth Twice D.O. A Day (Stool Softening) Artificial 08/10 Active Solution 1.4% 45ml 1 drop both Tears eyes as Elliot, needed for D.O. dry eyes Clonazepam 06/15 Active Tablets 0.25mg 1 in the Dispers morning crushed Chlorpromazine 06/15 Active Tablets 25mg 1 by mouth Endo, every Leyla, evening PhD Carave 06/15 Active QS apply t [facility], Moisturizing legs & body Elliot, Cream 2xdaily in D.O. the morning & at night Guaifenesin 06/15 Active Liquid 100mg/5ML 2 tsp po every 4 hrs prn Ducodyl 06/[address] 5mg 10mg on day 2 if no BM Tylenol Supp 06/15 Active Insert 1 rectally every 4 hrs prn temp >101 Hydrocortisone 06/15 Active Cream 0.2% apply to facial lesions bid prn dryness, itching or redness [place] Saline 06/13 Active Gel 14.1u Apply [facility], Nasal nits Inside Elliot, Nostrils D.O. Twice Daily (Dryness) Fleet Enema 04/20 Active Enema 7-19 665un Insert 1 8ML its Rectally On , Day 3 Of No D.O. Bowel Movement By 4PM as Needed Liquifilm Tears 03/24 Active Drops 30uni Instill 1 ts Drop In Elliot, Both Eyes D.O. Four Times A Day ( Dry Eyes) Tab-A-Boo/Iron 03/15 Active Tablets 30tab Take 1 s Tablet By Elliot, Mouth Every D.O. Day (Diet Supplement) Xanax 01/23 Active Tablets 0.5mg 4tabs 2 tabs 1 G40.89 hour prior Elliot, to D.O. procedure ok to repeat in 1 hour if partial response to help with cooperation . Halcion 01/22 Active Tablets 0.25mg 2 tablets by mouth po 1 hr before dental apt Vitamin D3 01/19 Active Tablet 5000Unit 30tab Take One s Tablet By Elliot, Mouth Every D.O. Day (Diet Supplement) Synthroid 10/25 Active Tablets 50mcg 90tab Take 1 E03.9 s Tablet By Elliot, Mouth Every D.O. Day (Hypothyroi dism) Ibuprofen 09/30 Active Tablets 200mg 100ta taking 2 bs tabs po A. every 4 h Bridgett prn muscle M.D. aches or discomfort Antacid 09/30 Active Suspension 200-200-2 Unknown Anti-Gas 0mg/5ML Mineral Oil 09/30 Active Oil instill 3 gtts in each ear tid and flush every third day prn Vitamin A & D 09/30 Active Oint ointment prn Desitin 09/30 Active Ointment prn Vitamin D-3 06/28 Active Tablets 5000Unit 90tab 1 tab by s mouth every Elliot, day or 7 D.O. tabs once a week Multi 05/12 Active Tablets 90tab 1 po daily. [place], Complete/Iron /2014 s Elliot, D.O. Humira 03/11 Active PSKT 40mg/0.8M subq inj L every other week as directed Triamcinolone 08/13 Active Ointment 0.1% 454un [facility], Acet its daily for 2 Elliot, weeks D.O. alternating with diprolene ,not to face or folds (refer to rx#[id number] ) Peridex 0.12% 06/04 Active 473un Swab 1 [place], Oral Rinse its Teaspoon On Elliot, Gums Twice D.O. Daily For Oral Care Nasal Moist Gel 02/02 Active Gel QS apply to [facility] inside of Elliot, nose 2 x a D.O. day # 90 day supply. Tar Soaks 02/19 Active twice a L40.0 Tangoren week MD Nichole Diprolene 02/19 Active Ointment 0.05% 45uni [facility].0 [facility] Elliot, Areas Twice D.O. Daily Times 2 Weeks Alternating With Triamcinolo ne, Not To Face Or Folds Vectical 02/19 Active Ointment 3mcg/GM 100un Apply To L40.0 [facility], its Legs Twice Elliot, Daily After D.O. Bath & Before Bed. (Psoriasis) Enulose 07/07 Active Solution 10GM/15ML 950un 2 K59.01 its tablespoon Elliot, every day D.O. Diapers Adult 06/27 Active 100un :Adult its Medium A. Pull-Up Due Bridgett, To Leakage M.D. Topiramate 06/05 Active Tablets 25mg 60tab take 1 tab s twice a day Elliot, after meals D.O. Klonopin 03/05 Active Tablets 0.5mg 20tab 1 at bed Lakisha s time Yohannes Tavera Tylenol 11/28 Active Tablets 325mg 60tab give 2 s tablets po A. g2hautq prn Bridgett, for pain or M.D. fever >101.0f Aspirin Low 11/28 Active Chewtabs 81mg 15uni Take 1 [facility], ts Tablet By Elliot, Mouth Every D.O. Other Day (Prevent Heart Disease) Zincon Dandruff Active Shampoo 1% QS 3 x a week [facility], Elliot, D.O. West[place]ort 0.2% Active 45uni Apply To [facility], Cre 15GM /0000 ts Facial Elliot, Lesions D.O. Twice Daily as Needed Dryness, Itching Or Redness. Must Be Applied By Amap Notify RN When Used, Dheeraj N Tarsum Active Shampoo 10-5% 472un 2 Capfuls [facility] its AT Bath Elliot, Time Every D.O. Day (Tar Bath) For Washing Body Atorvastatin 04/18 Hx Tablets 40mg 90tab 1 [facility] every day Elliot, - D.O. 04/19 Linezolid 04/18 Hx Tablets 600mg 1 by mouth every 12 - hours 04/22 Flonase Allergy 01/05 Hx Suspension 50mcg/Act 47.40 2 sprays J30.9 [facility], 0ml each Elliot, - nostril D.O. 02/04 Tylenol Extra 01/05 Hx Tablets 500mg 56tab take two J30.9 [facility], s tablets by Elliot, - mouth 2 D.O. 01/19 times a day for 2 weeks scheduled Miralax 07/21 Hx Powder 3350NF 510un 1 capful in [facility] its 8 oz. of Elliot, - water by D.O. 03/21 mouth day Hold for > 3 stools/day Dandruff 06/15 Hx Shampoo 3x/wk Unknown Shampoo /2015 - 04/22 Deep Sea Nasal 06/15 Hx Solution instill Unknown into each - nostril 03/15 Claritin 05/29 Hx Capsules 10mg 1 by mouth every day - 10/25 Claritin 10MG 11/29 Hx 28uni Take 1 [facility], ts Tablet By Elliot, - Mouth Once D.O. 06/15 Daily Doxycycline 11/05 Hx Tablets 100mg 20tab 1 twice a J20.9 Max ramon /2015 s day for 10 A. - days Klepack, 11/15 M.D. Doxycycline 10/01 Hx Tablets 100mg 20tab 1 twice a J06.9 Max Hyclate s day for 10 A. - days Bridgett, 11/04 M.D. Bacitracin 09/30 Hx Ointment 500Unit/G prn Unknown M - 07/27 Calamine 09/30 Hx Lotion prn - 04/22 Azithromycin 08/25 Hx Tablets 250mg 6tabs take 2 tablets by Elliot, - mouth one D.O. 08/30 time on the first day then take 1 tablet by mouth daily for 4 days Chlorpromazine 06/14 Hx Tablets 25mg 1 tab daily Miguel and 2 tabs Elliot, - at hs D.O. 06/15 Urine 02/12 Hx [place], Benzodiazepine Elliot, Level - D.O. 02/22 Polytrim 09/03 Hx Solution 90562-0.1 10uni Instill 1 Unit/ML-% ts Drop In The Elliot, - Affected D.O. 09/10 Eye(S) Three Times Daily For 5-7 Days Acetaminophen 08/28 Hx Suppository 650mg 10uni 1 tid as carmen ts needed for Elliot, - pain D.O. 09/27 Prednisone 08/13 Hx Tablets 20mg (decreasing doses x7 - days) 08/20 Tears Naturale 08/13 Hx Solution 0.1-0.2-0 15ml 2 drops as Kristi Rivera .3% needed - 6 Elliot, - times/day D.O. 08/18 Nystatin 08/03 Hx Cream [id number] 30uni Apply 1 carmen t/GM ts Application Elliot, - Topically D.O. 02/12 To Affected Area On Both Buttocks 2 Times Per Day For Rash Nystatin 12/29 Hx Powder 126394Bvi 60uni Dust Powder 110.4 Joycecobrittani t/GM ts Freely On Liang, - The Feet M.D. 01/14 And Shoes And Socks Three Times A Day as Needed To Keep Feet Dry For Fungal Infection Artificial 08/26 Hx Solution 0.4% QS1Mo 2 drops carmen, each eye 3 Elliot, - to 4 times D.O. 08/10 a Niaspan 08/21 Hx Tablets ER 1000mg 30tab Take 1 E78.4 s Tablet By Elliot, - Mouth Every D.O. (Dietary Supplement) Elimite 05/13 Hx Cream 5% 60g Apply cream Lakisha from head Liang, - to toe; M.D. 05/20 leave on for 8-14 hrs before washing off with water; may reapply in 1 wk if live mites appear Mupirocin 07/12 Hx Ointment 2% 22gm apply to 684 affected A. - area tid edouard, 07/12 M.D. Debrox 04/05 Hx Solution 6.5% 1bott instill 380.4 Charles, le 5-10 drops Liang, - in ear qid, M.D. 04/05 up to days, keep drops in ear for several min Triazolam 03/21 Hx Tablets 0.25mg 6tabs 2, one hour 318.2 carmen prior to Elliot, - dental work D.O. 05/19 Bactroban 03/21 Hx Ointment 2% 22gm use bid and 892.0 rug in well A. - to area on , 04/20 foot .D. Sulfamethoxazol 06/13 Hx Tablets 800-160mg 20tab 1 po bid 681.00 Max e/Trimethoprim s A. DS - Bridgett, 06/23 M.D. 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 - bridge crew member only , 07/06.D. Syringe 1 cc 06/06 Hx 1unit V65.49 Max With 25GA 1 10/16 s A. In Needle - Bridgett, 07/06.D. Deep Sea Nasal 06/05 Hx Solution 0.65% 1bott 1 spray per Miguel le nostril Elliot, - daily D.O. 06/13 Cephalexin 04/28 Hx Tablets 500mg 1 po qid X 5 Days - 06/05 Debrox 03/28 Hx Solution 6.5% 1bott instill le 5-10 drops A. - in ear qid, Bridgett, 03/28 3 days, M.D. keep drops in ear for several min Bactroban Nasal 03/07 Hx Ointment 2% apply to 784.7 affected r, - area in Ben, 06/05 right nostril bid for 2-4wks Saline 0.65% 08/23 Hx Nasal [place] 44uni [place] 1 ts [place] In A. - Each Bridgett, 02/02 Nostril M.D. Once A Day Bactrim DS 08/04 Hx Tablets 800-160mg 14tab 1 po bid x 681.02 Lakisha, s 7 days Lance Tavera M.DRashmi 08/11 Colace 07/13 [facility]x Capsules 100[facility] 120ca [facility] by Elliot, - mouth twice D.O. 09/12 daily hold for loose stools - notify rn if held Enbrel 04/19 Hx Solution 50mg/ml 1 cc twice 696.1 Caty, weekly Lance Varela MD 03/11 Hydrocortisone 11/23 Hx Ointment 2.5% 20gm apply 782.1 springly A. - to affected Bridgett, 12/13 area tid M.D. for 2 weeks Clarithromycin 11/23 Hx Tablets 250mg 20tab 1 po bid 782.1 s A. - Bridgett 04/18 M.D. Haloperidol 11/19 Hx Tablets 1mg 5tabs 1, one hour 318.2 before A. - appointment Bridgett 11/23 M.D. V40.3 Sulf-10 07/09/2008 - Hx Solution 10% Max Bragg 07/09/2008 Yohannes Whitlock Sodium Sulamyd 07/09/2008 - Hx 10% QS 1 gtt each eye Max ARashmi 07/09/2008 qid x 7 days. Yohannes Whitlock Miralax 07/01/2007 - Hx Powder 3350NF 527gm 1 capful bid 564.0 Max A. 07/07/2011 for 1 Bridgett constipation Yohannes Loratadine 01/07/2007 - Hx Tablets 10mg 30tab 1 po qd for 460 Max A. 01/06/2011 s allergies Yohannes Whitlock Ilotycin Opthal 06/19/2006 - Hx .5% QS use qid for 7 372.0 Max A. 06/26/2006 Oint days o.u. 3 Yohannes Whitlock Chlorpromazine 02/09/2006 - Hx Tablets 25mg 120ta take on tablet V40.3 Max ARashmi 06/16/2016 bs every morning Bridgett, and three GabrielleDRashmi tablets at bedtime Bisacodyl 12/28/2005 - Hx Tablets 5mg 60tab 2 po For No BM 564.0 Max A. 10/01/2015 s In 48 Hours 1 Yohannes Whitlock Peridex 11/28/2005 - Hx Rinse 0.12%;1 1Bott give 10mls bid Max A. 04/09/2008 1.6%Alc le after brushing raphael Whitlock teeth Yohannes Bisacodyl 11/28/2005 - Hx Suppositor 5mg 60uni Give 2 Tablets Max ARashmi 12/28/2005 ts PO If No BM In Bridgett, 48Hours Aníbal.Noa Calamine Lotion 11/28/2005 - Hx Liquid tid prn Max A. 04/09/2008 Yohannes Whitlock [place] Bismuth 11/28/2005 - Hx 1Bott 30 cc PO After Max A. Liquid 04/09/2008 le Each Loose Bridgett, Stool; Not To Yohannes Exceed tid X3days Mineral Oil 11/28/2005 - Hx 1Bott as Directed Max Bragg 01/19/2007 marnie Whitlock M.D. Bacitracin 11/28/2005 - Hx 1Bott Apply Max A. Ointment 04/09/2008 le Topically bid Klepack, prn To Open M.D. Areas Katrin D 02/23/2005 - Hx Tablets 60mg;12 60tab 1 po bid for 460 Max Hatch. 01/07/2007 0 mg s allergy Yohannes Whitlock Flonase 02/03/2005 - Hx [place] 50mcg/S 2unit 2 sprays in Max Hatch. 03/02/2005 pray s each nostril gustavo Whitlock.DRashmi Chloral Hydrate 01/16/2005 - Hx Syrup 500mg/5 80cc 10 cc po 1hr Max Hatch. 11/19/2008 ML before Bridgett appointment Yohannes Atarax 09/26/2004 - Hx Tablets 50mg 7tabs 1 tab po hs bridgett 10/19/2006 Raptiva 09/25/2004 - Hx Injection 125mg/V 696.1 Max MamieRashmi 02/12/2009 ial Yohannes Whitlock Artificial Tears 08/11/2004 - Hx 1Bott 2 gtts to each Max HatchRashmi 04/09/2008 le eye Q4H prn Yohannes Whitlock Chlorhexidine 08/11/2004 - Hx Rinse 0.12% 1Bott use 10mls to Max Hatch. Gluconate 06/10/2014 le rinse mouth Bridgett, after brushing M.D. teeth bid Saline Nasal 08/02/2004 - Hx QSX1M 1 spray ea 477.0 Max Bragg [place] 02/02/2014 o nostril qd Yohannes Whitlock Flonase 07/06/2004 - Hx Suspension 50mcg/S 2unit 1 spray each Max ARashmi 02/03/2005 pranaif s nare bid Yohannes Whitlock Ear Wax Removal 04/26/2004 - Hx Qs1mo use 5 drops Max Bragg Drops 05/30/2004 each ear hs Bridgett, for 4 days per M.D. month irragate on day 5 with warm water Multivitamins W/ 03/21/2004 - Hx Tablets 30tab 1 every day [place], Iron 05/12/2015 manuelito Zarate D.O. Fleets Enema 02/11/2004 - Hx 5unit [address] of [place], 04/21/2016 s rectum as Elliot, needed with no D.O. results from bisacodyl tabs in 24hrs Bisacodyl 01/08/2004 - Hx Suppositor 10mg 10uni 1 suppository Max Bragg 11/28/2005 ts every 3 days jodee Whitlock no BM prn Yohannes Levoxyl 01/06/2004 - Hx Tablets 50mcg 30tab 1 tab by mouth 244.9 [place], 10/25/2015 s daily for Elliot thyroid on D.O. empty stomach in the in the morning Niaspan Extended 12/04/2003 - Hx Tablets 1000mg 30tab 1 tablet po 272.4 Max Bragg Release 08/21/2013 s [facility] Yohannes Whitlock Ferrous Sulfate 12/04/2003 - Hx Tablets 325mg 60tab 1 po bid Max Bragg 04/09/2007 manuelito Whitlock M.D. Doxycycline 09/29/2003 - Hx Capsules 100mg 20cap 1 bid for ten 461.9 Max Bragg Hyclate 01/06/2004 s days Yohannes Whitlock Pentoxifylline 09/28/2003 - Hx Tablets 400mg 90tab 1 po tid 443.9 Max Bragg 04/09/2008 manuelito Whitlock M.D. Aspirin Enteric 09/28/2003 - Hx Tablets 325mg 15tab 1 pill daily Max Bragg Coated 11/28/2005 s in the morning Bridgett with food for M.DRashmi decreasing risk of stroke and heart attacks Docusate Sodium 09/28/2003 - Hx Capsules 100mg 120ca 2 po bid hold Max Bragg 07/13/2010 ps for melita Corral M.D. Claritin - Hx Capsules 10mg 30cap 1 by mouth [facility], 11/29/2015 s every day Arianna Zarate Chlorpromazine - Hx Tablets 25mg 4 daily Unknown HCL 08/13/2014 Hydrocortisone - Hx Cream 1% prn Unknown 06/16/2016 Immunizations CPT Code Status Date Vaccine Lot # [id number] Given 06/20/2017 Influenza Virus Vaccine, Quadrivalent, Split, [id number] Preservative Free 12955 Given 06/16/2016 Influenza Virus Vaccine, Quadrivalent, Split, [id number] Preservative Free 64409 Given 06/14/2015 Zostavax [id number] 30769 Given 06/14/2015 Influenza Virus Vaccine, Quadrivalent, Split, [id number] Preservative Free 24440 Given 06/14/2015 Prevnar 13 [id number] 06578 Given 06/11/2014 Adacel or Boostrix, TDaP [id number] 81783 Given 06/11/2014 Influenza Vaccine Split Virus Preservative Free Im [id number] Use 65719 Given 07/28/2013 Flu, Split Virus 3Yrs [id number] 08636 Given 07/12/2012 Flu, Split Virus 3Yrs [id number] 47689 Given 08/22/2011 Flu, Split Virus 3Yrs [id number] 68557 Given 08/04/2010 Flu, Split Virus 3Yrs [id number] 11855 Given 09/22/2009 Flu, Split Virus 3Yrs [id number] 57614 Given 08/27/2008 Flu, Split Virus 3Yrs [id number] 26103 Given 08/29/2007 Flu, Split Virus 3Yrs [id number] 65234 Given 08/27/2006 Flu, Split Virus 3Yrs [id number] 85927 Given 03/06/2006 Pneumococcal Immunization [id number] 89006 Given 08/12/2004 Flu, Split Virus 3Yrs 20682 Given 02/10/2004 Td Immunization 90222 Given 08/01/2003 Flu, Split Virus 3Yrs Vital Signs Date Vital Result Comment 04/30/2018 BP Systolic 158 mmHg BP Diastolic 68 mmHg Heart Rate 64 /min reg Respiratory Rate 14 /min not laboured Body Temperature 97.7 F axillary Weight 143.00 lb 04/23/2018 BP Systolic 175 mmHg BP Diastolic 91 mmHg Heart Rate 65 /min 06/20/2017 BP Systolic 124 mmHg BP Diastolic 80 mmHg Height 64 inches 5'4"w/shoes Weight 146.00 lb w/shoes BMI (Body Mass Index) 25.1 kg/m2 01/05/2017 Weight 146.00 lb weight taken 12/16/16 by staff 12/19/2016 BP Systolic 128 mmHg BP Diastolic 78 mmHg Weight 139.00 lb 07/28/2016 BP Systolic 150 mmHg BP Diastolic 80 mmHg Weight 159.00 lb 06/16/2016 BP Systolic 146 mmHg BP Diastolic 80 mmHg Height 65 inches 5'5" Weight 157.00 lb unsteady on scale BMI (Body Mass Index) 26.1 kg/m2 05/30/2016 BP Systolic 96 mmHg right arm BP Diastolic 74 mmHg right arm Heart Rate 90 /min 03/30/2016 BP Systolic 162 mmHg pt having a hard time- BP Diastolic 91 mmHg pt having a hard time- Heart Rate 77 /min 03/16/2016 BP Systolic 149 mmHg BP Diastolic 81 mmHg Heart Rate 82 /min 02/21/2016 BP Systolic 137 mmHg BP Diastolic 70 mmHg Heart Rate 69 /min Weight 160.00 lb 01/24/2016 BP Systolic 145 mmHg at facility 01/16/16 BP Diastolic 72 mmHg at facility 01/16/16 Weight 160.00 lb with sneakers; 157 lb at facility 11/05/2015 Heart Rate 70 /min Respiratory Rate 16 /min Weight 160.00 lb approx, pt moving 10/01/2015 Respiratory Rate 16 /min Body Temperature 97.0 F at the home Weight 157.00 lb with sneakers 08/18/2015 Weight 154.00 lb with sneakers 06/14/2015 BP Systolic 140 mmHg BP Diastolic 75 mmHg Height 64.5 inches 5'4.50" Weight 155.00 lb BMI (Body Mass Index) 26.2 kg/m2 03/15/2015 BP Systolic 149 mmHg BP Diastolic 74 mmHg Heart Rate 80 /min Weight 157.00 lb W/Shoes 08/14/2014 BP Systolic 154 mmHg BP Diastolic 70 mmHg 06/11/2014 BP Systolic 138 mmHg BP Diastolic 64 mmHg Height 62.5 inches 5'2.50" Weight 152.00 lb BMI (Body Mass Index) 27.4 kg/m2 03/16/2014 BP Systolic 140 mmHg BP Diastolic 70 mmHg Weight 146.00 lb w/shoes 07/28/2013 BP Systolic 147 mmHg BP Diastolic 85 mmHg Heart Rate 77 /min Weight 153.00 lb 06/09/2013 BP Systolic 124 mmHg BP Diastolic 68 mmHg Heart Rate 80 /min Respiratory Rate 16 /min Weight 145.00 lb 06/07/2012 BP Systolic 140 mmHg BP Diastolic 74 mmHg Heart Rate 80 /min RRR Respiratory Rate 16 /min Weight 155.00 lb Last Menstrual Period 0 05/02/2012 BP Systolic 112 mmHg BP Diastolic 92 mmHg Heart Rate 86 /min 07/04/2011 BP Systolic 118 mmHg BP Diastolic 70 mmHg Heart Rate 70 /min Respiratory Rate 16 /min Weight 146.00 lb 06/06/2011 BP Systolic 158 mmHg BP Diastolic 70 mmHg Heart Rate 70 /min rrr Respiratory Rate 16 /min Weight 156.00 lb Last Menstrual Period 0 05/01/2011 BP Systolic 162 mmHg BP Diastolic 86 mmHg Heart Rate 89 /min Weight 158.00 lb 03/09/2011 BP Systolic 136 mmHg BP Diastolic 80 mmHg Heart Rate 80 /min Respiratory Rate 16 /min Weight 157.00 lb 08/04/2010 Weight 156.00 lb 05/20/2010 Height 64 inches 5'4" Weight 155.00 lb BMI (Body Mass Index) 26.6 kg/m2 Last Menstrual Period 0 04/19/2009 BP Systolic 122 mmHg BP Diastolic 70 mmHg Heart Rate 78 /min Respiratory Rate 18 /min Height 64 inches 5'4" Weight 149.00 lb BMI (Body Mass Index) 25.6 kg/m2 04/09/2008 BP Systolic 134 mmHg BP Diastolic 70 mmHg Heart Rate 70 /min rrr Respiratory Rate 16 /min Height 64 inches 5'4" Weight 147.00 lb in home BMI (Body Mass Index) 25.2 kg/m2 04/08/2007 BP Systolic 134 mmHg BP Diastolic 70 mmHg Heart Rate 72 /min Height 64 inches 5'4" Weight 134.00 lb normal per their records BMI (Body Mass Index) 23.0 kg/m2 06/19/2006 Weight 145.00 lb 03/06/2006 BP Systolic 140 mmHg BP Diastolic 82 mmHg Weight 147.00 lb 03/06/2006 Heart Rate 80 /min Respiratory Rate 16 /min 03/02/2005 BP Systolic 128 mmHg Per RN BP Diastolic 78 mmHg Per RN Weight 142.00 lb Results Test Date Test Result H/L Range Note Laboratory test finding 04/14/2018 Blood Culture SEE RESULT 1 BELOW Urine Culture And 04/14/2018 Urine Culture SEE RESULT 2 Sensitivities BELOW Laboratory test finding 04/14/2018 B-Type Natriuretic 30 pg/mL 3 Peptide BNP Urinalysis Profile 04/14/2018 Urine Color Yellow Urine Appearance Turbid Urine Specific Holcomb 1.015 1.010-1.030 Urine pH 7.0 5-9 Urine Urobilinogen Negative Negative Urine Ketones Negative Negative Urine Protein 1+(30 mg/dL) Negative Urine Leukocytes 3+ Negative Urine Blood 1+ Negative Urine Nitrite Negative Negative Urine Bilirubin Negative Negative Urine Glucose Negative Negative Urine White Blood Cell 3+(>20/hpf) Absent Urine Red Blood Cell 3+(>10/hpf) Absent Urine Bacteria Absent Absent Urine Squamous Epithelial Cell Present Absent CBC Auto Diff 04/14/2018 White Blood Count 17.7 10^3/uL High 3.5-10.8 Red Blood Count 5.53 10^6/uL High 4.00-5.40 Hemoglobin 17.0 g/dL 14.0-18.0 Hematocrit 50 % 42-52 Mean Corpuscular Volume 91 fL 80-94 Mean Corpuscular Hemoglobin 31 pg 27-31 Mean Corpuscular HGB Conc 34 g/dL 31-36 Red Cell Distribution Width 14 % 10.5-15 Platelet Count 278 10^3/uL 150-450 Mean Platelet Volume 8.1 um3 7.4-10.4 Abs Neutrophils 16.0 10^3/uL High 1.5-7.7 Abs Lymphocytes 0.6 10^3/uL Low 1.0-4.8 Abs Monocytes 1.1 10^3/uL High 0-0.8 Abs Eosinophils 0 10^3/uL 0-0.6 Abs Basophils 0 10^3/uL 0-0.2 Abs Nucleated RBC 0.1 10^3/uL Granulocyte % 90.5 % High 38-83 Lymphocyte % 3.4 % Low 25-47 Monocyte % 6.0 % 0-7 Eosinophil % 0 % 0-6 Basophil % 0.1 % 0-2 Nucleated Red Blood Cells % 0.4 Inr/Protime 04/14/2018 Inr 1.25 High 0.77-1.02 Laboratory test finding 04/14/2018 C Reactive Protein 53.28 mg/L High < 8.01 Troponin-I (TnI) 1.23 ng/mL High <0.04 4 Laboratory test finding 04/14/2018 Partial Thrombo Time 48.6 seconds High 26.0-36.3 PTT Lactic Acid 1.9 mmol/L 0.5-2.0 5 Comp Metabolic Panel 04/14/2018 Sodium 135 mmol/L 135-145 Potassium 4.1 mmol/L 3.5-5.0 Chloride 104 mmol/L 101-111 Co2 Carbon Dioxide 24 mmol/L 22-32 Anion Gap 7 mmol/L 2-11 Glucose 172 mg/dL High 70-100 Blood Urea Nitrogen 30 mg/dL High 6-24 Creatinine 1.46 mg/dL High 0.67-1.17 BUN/Creatinine Ratio 20.5 High 8-20 Calcium 9.8 mg/dL 8.6-10.3 Total Protein 7.8 g/dL 6.4-8.9 Albumin 3.5 g/dL 3.2-5.2 Globulin 4.3 g/dL High 2-4 Albumin/Globulin Ratio 0.8 Low 1-3 Total Bilirubin 0.70 mg/dL 0.2-1.0 Alkaline Phosphatase 95 U/L 34-104 Alt 22 U/L 7-52 Ast 27 U/L 13-39 Egfr Non- 46.3 >60 Egfr 56.1 >60 6 Laboratory test finding 07/23/2017 Vitamin D Total 86.2 ng/mL High 20-50 7, 8 25(Oh) CBC Auto Diff 05/22/2017 White Blood Count 6.2 10^3/uL 3.5-10.8 9 Red Blood Count 5.32 10^6/uL 4.0-5.4 9 Hemoglobin 16.7 g/dL 14.0-18.0 9 Hematocrit 51 % 42-52 9 Mean Corpuscular Volume 95 fL High 80-94 9 Mean Corpuscular Hemoglobin 31 pg 27-31 9 Mean Corpuscular HGB Conc 33 g/dL 31-36 9 Red Cell Distribution Width 14 % 10.5-15 9 Platelet Count 221 10^3/uL 150-450 9 Mean Platelet Volume 9 um3 7.4-10.4 9 Abs Neutrophils 4.0 10^3/uL 1.5-7.7 9 Abs Lymphocytes 1.5 10^3/uL 1.0-4.8 9 Abs Monocytes 0.6 10^3/uL 0-0.8 9 Abs Eosinophils 0 10^3/uL 0-0.6 9 Abs Basophils 0 10^3/uL 0-0.2 9 Abs Nucleated RBC 0 10^3/uL 9 Granulocyte % 64.1 % 38-83 9 Lymphocyte % 24.9 % Low 25-47 9 Monocyte % 10.3 % High 1-9 9 Eosinophil % 0.4 % 0-6 9 Basophil % 0.3 % 0-2 9 Nucleated Red Blood Cells % 0 9 Comp Metabolic Panel 05/22/2017 Sodium 139 mmol/L 133-145 9 Potassium 4.1 mmol/L 3.5-5.0 9 Chloride 107 mmol/L 101-111 9 Co2 Carbon Dioxide 31 mmol/L 22-32 9 Anion Gap 1 mmol/L Low 2-11 9 Glucose 88 mg/dL 70-100 9 Blood Urea Nitrogen 29 mg/dL High 6-24 9 Creatinine 1.22 mg/dL High 0.67-1.17 9 BUN/Creatinine Ratio 23.8 High 8-20 9 Calcium 9.5 mg/dL 8.6-10.3 9 Total Protein 7.1 g/dL 6.4-8.9 9 Albumin 3.8 g/dL 3.2-5.2 9 Globulin 3.3 g/dL 2-4 9 Albumin/Globulin Ratio 1.2 1-3 9 Total Bilirubin 0.70 mg/dL 0.2-1.0 9 Alkaline Phosphatase 66 U/L 34-104 9 Alt 20 U/L 7-52 9 Ast 22 U/L 13-39 9 Egfr Non- 57.2 >60 9 Egfr 73.5 >60 9, 10 Laboratory test finding 05/22/2017 Magnesium 2.2 mg/dL 1.9-2.7 9, 11 TSH (Thyroid Stim Horm) 2.13 mcIU/mL 0.34-5.60 9, 12 T3 Free 3.10 pg/mL 2.5-3.9 9, 13 Free T4 (Free Thyroxine) 0.96 ng/dL 0.61-1.12 9, 14 Vitamin B12 1420 pg/mL High 180-914 9, 15 Laboratory test finding 07/19/2016 Surgical Pathology SEE RESULT BELOW 16 Lipid Profile 06/22/2016 Triglycerides 156 mg/dL 17, 18 (Trig/Chol/HDL) Cholesterol 209 mg/dL 17, 19 HDL Cholesterol 39.8 mg/dL 17, 20 LDL Cholesterol 138 mg/dL 17, 21 CBC Auto Diff 06/22/2016 White Blood Count 6.8 10^3/uL 3.5-10.8 17 Red Blood Count 5.54 10^6/uL High 4.0-5.4 17 Hemoglobin 16.7 g/dL 14.0-18.0 17 Hematocrit 49 % 42-52 17 Mean Corpuscular Volume 89 fL 80-94 17 Mean Corpuscular Hemoglobin 30 pg 27-31 17 Mean Corpuscular HGB Conc 34 g/dL 31-36 17 Red Cell Distribution Width 14 % 10.5-15 17 Platelet Count 239 10^3/uL 150-450 17 Mean Platelet Volume 9 um3 7.4-10.4 17 Abs Neutrophils 4.6 10^3/uL 1.5-7.7 17 Abs Lymphocytes 1.4 10^3/uL 1.0-4.8 17 Abs Monocytes 0.7 10^3/uL 0-0.8 17 Abs Eosinophils 0.1 10^3/uL 0-0.6 17 Abs Basophils 0 10^3/uL 0-0.2 17 Abs Nucleated RBC 0.01 10^3/uL 17 Granulocyte % 68.2 % 38-83 17 Lymphocyte % 20.1 % Low 25-47 17 Monocyte % 10.3 % High 1-9 17 Eosinophil % 1.3 % 0-6 17 Basophil % 0.1 % 0-2 17 Nucleated Red Blood Cells % 0.2 17 Comp Metabolic Panel 06/22/2016 Sodium 135 mmol/L 133-145 17 Potassium 4.0 mmol/L 3.5-5.0 17 Chloride 103 mmol/L 101-111 17 Co2 Carbon Dioxide 26 mmol/L 22-32 17 Anion Gap 6 mmol/L 2-11 17 Glucose 83 mg/dL 70-100 17 Blood Urea Nitrogen 23 mg/dL 6-24 17 Creatinine 1.08 mg/dL 0.67-1.17 17 BUN/Creatinine Ratio 21.3 High 8-20 17 Calcium 9.6 mg/dL 8.6-10.3 17 Total Protein 7.0 g/dL 6.4-8.9 17 Albumin 3.8 g/dL 3.2-5.2 17 Globulin 3.2 g/dL 2-4 17 Albumin/Globulin Ratio 1.2 1-3 17 Total Bilirubin 0.50 mg/dL 0.2-1.0 17 Alkaline Phosphatase 75 U/L 34-104 17 Alt 23 U/L 7-52 17 Ast 25 U/L 13-39 17 Egfr Non- 66.0 >60 17 Egfr 84.8 >60 17, 22 Laboratory test 06/22/2016 Vitamin D Total 70.7 ng/mL High 30-50 17, 23 finding 25(Oh) CBC Auto Diff 03/20/2016 White Blood Count 8.4 10^3/uL 3.5-10.8 Red Blood Count 5.45 10^6/uL High 4.0-5.4 Hemoglobin 16.6 g/dL 14.0-18.0 Hematocrit 50 % 42-52 Mean Corpuscular Volume 92 fL 80-94 Mean Corpuscular Hemoglobin 31 pg 27-31 Mean Corpuscular HGB Conc 33 g/dL 31-36 Red Cell Distribution Width 14 % 10.5-15 Platelet Count 239 10^3/uL 150-450 Mean Platelet Volume 8 um3 7.4-10.4 Abs Neutrophils 5.4 10^3/uL 1.5-7.7 Abs Lymphocytes 1.9 10^3/uL 1.0-4.8 Abs Monocytes 0.9 10^3/uL High 0-0.8 Abs Eosinophils 0.2 10^3/uL 0-0.6 Abs Basophils 0.1 10^3/uL 0-0.2 Abs Nucleated RBC 0.02 10^3/uL Granulocyte % 64.0 % 38-83 Lymphocyte % 23.2 % Low 25-47 Monocyte % 10.4 % High 1-9 Eosinophil % 1.8 % 0-6 Basophil % 0.6 % 0-2 Nucleated Red Blood Cells % 0.2 Comp Metabolic Panel 03/20/2016 Sodium 135 mmol/L 133-145 Potassium 4.5 mmol/L 3.5-5.0 Chloride 105 mmol/L 101-111 Co2 Carbon Dioxide 26 mmol/L 22-32 Anion Gap 4 mmol/L 2-11 Glucose 98 mg/dL 70-100 Blood Urea Nitrogen 19 mg/dL 6-24 Creatinine 1.07 mg/dL 0.67-1.17 BUN/Creatinine Ratio 17.8 8-20 Calcium 9.2 mg/dL 8.6-10.3 Total Protein 6.7 g/dL 6.4-8.9 Albumin 3.6 g/dL 3.2-5.2 Globulin 3.1 g/dL 2-4 Albumin/Globulin Ratio 1.2 1-3 Total Bilirubin 0.60 mg/dL 0.2-1.0 Alkaline Phosphatase 78 U/L 34-104 Alt 16 U/L 7-52 Ast 18 U/L 13-39 Egfr Non- 66.7 >60 Egfr 85.7 >60 24 Laboratory test finding 03/20/2016 Magnesium 2.0 mg/dL 1.9-2.7 TSH (Thyroid Stim Horm) 3.57 ?IU/mL 0.34-5.60 T3 Free 3.00 pg/mL 2.5-3.9 Free T4 (Free Thyroxine) 0.87 ng/dL 0.61-1.12 Vitamin B12 > 1450 pg/mL High 180-914 25 CBC Auto Diff 01/20/2016 White Blood Count 7.0 10^3/uL 3.5-10.8 Red Blood Count 5.61 10^6/uL High 4.0-5.4 Hemoglobin 17.1 g/dL 14.0-18.0 Hematocrit 52 % 42-52 Mean Corpuscular Volume 92 fL 80-94 Mean Corpuscular Hemoglobin 31 pg 27-31 Mean Corpuscular HGB Conc 33 g/dL 31-36 Red Cell Distribution Width 14 % 10.5-15 Platelet Count 243 10^3/uL 150-450 Mean Platelet Volume 8 um3 7.4-10.4 Abs Neutrophils 4.5 10^3/uL 1.5-7.7 26 Abs Lymphocytes 1.7 10^3/uL 1.0-4.8 27 Abs Monocytes 0.7 10^3/uL 0-0.8 28 Abs Eosinophils 0.1 10^3/uL 0-0.6 29 Abs Basophils 0 10^3/uL 0-0.2 30 Abs Nucleated RBC 0.06 10^3/uL 31 Granulocyte % 64.5 % 38-83 Lymphocyte % 24.4 % Low 25-47 32 Monocyte % 9.4 % High 1-9 Eosinophil % 1.0 % 0-6 Basophil % 0.7 % 0-2 Nucleated Red Blood Cells % 0.9 Urinalysis Profile 01/20/2016 Urine Color Yellow Urine Appearance Clear Urine Specific Holcomb 1.017 1.010-1.030 Urine pH 6.0 5-9 Urine Urobilinogen Negative Negative Urine Ketones Negative Negative Urine Protein Negative Negative Urine Leukocytes Negative Negative Urine Blood Negative Negative Urine Nitrite Negative Negative Urine Bilirubin Negative Negative Urine Glucose Negative Negative Laboratory test finding 01/20/2016 Troponin-I (TnI) 0.01 ng/mL <0.03 33 Comp Metabolic Panel 01/20/2016 Sodium 132 mmol/L Low 133-145 Potassium 4.6 mmol/L 3.5-5.0 Chloride 103 mmol/L 101-111 Co2 Carbon Dioxide 23 mmol/L 22-32 Anion Gap 6 mmol/L 2-11 Creatinine 1.01 mg/dL 0.67-1.17 Calcium 9.5 mg/dL 8.6-10.3 Albumin 3.9 g/dL 3.2-5.2 Alkaline Phosphatase 64 U/L 34-104 Alt 24 U/L 7-52 Ast 32 U/L 13-39 Egfr Non- 71.3 >60 Egfr 91.6 >60 34 Glucose 100 mg/dL 70-100 Blood Urea Nitrogen 18 mg/dL 6-24 BUN/Creatinine Ratio 17.8 8-20 Total Protein 7.1 g/dL 6.4-8.9 Globulin 3.2 g/dL 2-4 Albumin/Globulin Ratio 1.2 1-3 Total Bilirubin 0.40 mg/dL 0.2-1.0 Laboratory test finding 01/20/2016 Lipase 29 U/L 11.0-82.0 C Reactive Protein 3.00 mg/L < 5.00 35 Quantiferon Gold TB 06/14/2015 M tuberculosis by Quantiferon Negative Negative Tuberculosis Antigen Value 0.00 IU/mL 36 Laboratory test finding 06/14/2015 TSH (Thyroid Stim Horm) 1.61 ?IU/mL 0.34-5.60 Comp Metabolic Panel 06/14/2015 Sodium 137 mmol/L 133-145 Potassium 4.1 mmol/L 3.5-5.0 Chloride 107 mmol/L 101-111 Co2 Carbon Dioxide 24 mmol/L 22-32 Anion Gap 6 mmol/L 2-11 Glucose 99 mg/dL 70-100 Blood Urea Nitrogen 18 mg/dL 6-24 Creatinine 0.90 mg/dL 0.67-1.17 BUN/Creatinine Ratio 20.0 8-20 Calcium 9.1 mg/dL 8.6-10.3 Total Protein 6.5 g/dL 6.4-8.9 Albumin 3.6 g/dL 3.2-5.2 Globulin 2.9 g/dL 2-4 Albumin/Globulin Ratio 1.2 1-3 Total Bilirubin 0.40 mg/dL 0.2-1.0 Alkaline Phosphatase 101 U/L 34-104 Alt 21 U/L 7-52 Ast 22 U/L 13-39 Egfr Non- 81.6 >60 Egfr 105.0 >60 37 CBC Auto Diff 06/14/2015 White Blood Count 5.8 10^3/uL 4.8-10.8 Red Blood Count 5.32 10^6/uL 4.0-5.4 Hemoglobin 16.3 g/dL 14.0-18.0 Hematocrit 48 % 42-52 Mean Corpuscular Volume 91 fL 80-94 Mean Corpuscular Hemoglobin 31 pg 27-31 Mean Corpuscular HGB Conc 34 g/dL 31-36 Red Cell Distribution Width 14 % 10.5-15 Platelet Count 237 10^3/uL 150-450 Mean Platelet Volume 8 um3 7.4-10.4 Abs Neutrophils 3.8 10^3/uL 1.5-7.7 Abs Lymphocytes 1.0 10^3/uL 1.0-4.8 Abs Monocytes 0.8 10^3/uL 0-0.8 Abs Eosinophils 0.1 10^3/uL 0-0.6 Abs Basophils 0.1 10^3/uL 0-0.2 Abs Nucleated RBC 0.01 10^3/uL Granulocyte % 64.6 % 38-83 Lymphocyte % 18.0 % Low 25-47 Monocyte % 14.0 % High 1-9 Eosinophil % 2.5 % 0-6 Basophil % 0.9 % 0-2 Nucleated Red Blood Cells % 0.2 Laboratory test finding 06/14/2015 Vitamin D Total 25(Oh) 25.2 ng/mL Low 30-50 CBC Auto Diff 03/08/2015 White Blood Count 6.7 10^3/uL 4.8-10.8 Red Blood Count 5.21 10^6/uL 4.0-5.4 Hemoglobin 16.8 g/dL 14.0-18.0 Hematocrit 48 % 42-52 Mean Corpuscular Volume 92 fL 80-94 Mean Corpuscular Hemoglobin 32 pg High 27-31 Mean Corpuscular HGB Conc 35 g/dL 31-36 Red Cell Distribution Width 13 % 10.5-15 Platelet Count 202 10^3/uL 150-450 Mean Platelet Volume 8 um3 7.4-10.4 Abs Neutrophils 4.1 10^3/uL 1.5-7.7 Abs Lymphocytes 1.7 10^3/uL 1.0-4.8 Abs Monocytes 0.7 10^3/uL 0-0.8 Abs Eosinophils 0.1 10^3/uL 0-0.6 Abs Basophils 0 10^3/uL 0-0.2 Abs Nucleated RBC 0.02 10^3/uL Granulocyte % 62.1 % 38-83 Lymphocyte % 25.4 % 25-47 Monocyte % 10.1 % High 1-9 Eosinophil % 2.0 % 0-6 Basophil % 0.4 % 0-2 Nucleated Red Blood Cells % 0.3 Laboratory test finding 03/08/2015 Lipase 20 U/L 11.0-82.0 C Reactive Protein 2.57 mg/L < 5.00 38 Lactic Acid 1.7 mmol/L 0.5-2.2 Comp Metabolic Panel 03/08/2015 Sodium 134 mmol/L 133-145 Potassium 3.8 mmol/L 3.5-5.0 Chloride 104 mmol/L 101-111 Co2 Carbon Dioxide 28 mmol/L 22-32 Anion Gap 2 mmol/L 2-11 Glucose 146 mg/dL High 70-100 Blood Urea Nitrogen 19 mg/dL 6-24 Creatinine 1.16 mg/dL 0.67-1.17 BUN/Creatinine Ratio 16.4 8-20 Calcium 9.3 mg/dL 8.6-10.3 Total Protein 6.6 g/dL 6.4-8.9 Albumin 3.7 g/dL 3.2-5.2 Globulin 2.9 g/dL 2-4 Albumin/Globulin Ratio 1.3 1-3 Total Bilirubin 0.50 mg/dL 0.2-1.0 Alkaline Phosphatase 60 U/L 34-104 Alt 25 U/L 7-52 Ast 35 U/L 13-39 Egfr Non- 60.9 >60 Egfr 78.3 >60 39 Urinalysis Profile 03/08/2015 Urine Color Yellow Urine Appearance Clear Urine Specific Holcomb 1.011 1.010-1.030 Urine pH 6.0 5-9 Urine Urobilinogen Negative Negative Urine Ketones Negative Negative Urine Protein Negative Negative Urine Leukocytes Negative Negative Urine Blood Negative Negative Urine Nitrite Negative Negative Urine Bilirubin Negative Negative Urine Glucose Negative Negative Comp Metabolic Panel 02/22/2015 Sodium 137 mmol/L 133-145 Potassium 4.1 mmol/L 3.5-5.0 Chloride 106 mmol/L 101-111 Co2 Carbon Dioxide 24 mmol/L 22-32 Anion Gap 7 mmol/L 2-11 Glucose 99 mg/dL 70-100 Blood Urea Nitrogen 21 mg/dL 6-24 Creatinine 1.19 mg/dL High 0.67-1.17 BUN/Creatinine Ratio 17.6 8-20 Calcium 9.1 mg/dL 8.6-10.3 Total Protein 6.9 g/dL 6.4-8.9 Albumin 3.8 g/dL 3.2-5.2 Globulin 3.1 g/dL 2-4 Albumin/Globulin Ratio 1.2 1-3 Total Bilirubin 0.60 mg/dL 0.2-1.0 Alkaline Phosphatase 65 U/L 34-104 Alt 20 U/L 7-52 Ast 23 U/L 13-39 Egfr Non- 59.1 >60 Egfr 76.0 >60 40 CBC Auto Diff 02/22/2015 White Blood Count 7.5 10^3/uL 4.8-10.8 Red Blood Count 5.57 10^6/uL High 4.0-5.4 Hemoglobin 17.4 g/dL 14.0-18.0 Hematocrit 52 % 42-52 Mean Corpuscular Volume 93 fL 80-94 Mean Corpuscular Hemoglobin 31 pg 27-31 Mean Corpuscular HGB Conc 34 g/dL 31-36 Red Cell Distribution Width 13 % 10.5-15 Platelet Count 250 10^3/uL 150-450 Mean Platelet Volume 9 um3 7.4-10.4 Abs Neutrophils 5.1 10^3/uL 1.5-7.7 Abs Lymphocytes 1.7 10^3/uL 1.0-4.8 Abs Monocytes 0.5 10^3/uL 0-0.8 Abs Eosinophils 0.1 10^3/uL 0-0.6 Abs Basophils 0 10^3/uL 0-0.2 Abs Nucleated RBC 0.02 10^3/uL Granulocyte % 68.9 % 38-83 Lymphocyte % 22.3 % Low 25-47 Monocyte % 6.9 % 1-9 Eosinophil % 1.4 % 0-6 Basophil % 0.5 % 0-2 Nucleated Red Blood Cells % 0.2 Lipid Profile (Trig/Chol/HDL) 11/25/2014 Triglycerides 216 mg/dL 41, 42 Cholesterol 154 mg/dL 41, 43 HDL Cholesterol 26.4 mg/dL 41, 44 LDL Cholesterol 84 mg/dL 41, 45 CBC Auto Diff 08/13/2014 White Blood Count 10.7 10^3/uL 4.8-10.8 Red Blood Count 5.80 10^6/uL High 4.0-5.4 Hemoglobin 18.1 g/dL High 14.0-18.0 Hematocrit 52 % 42-52 Mean Corpuscular Volume 90 fL 80-94 Mean Corpuscular Hemoglobin 31 pg 27-31 Mean Corpuscular HGB Conc 35 g/dL 31-36 Red Cell Distribution Width 14 % 10.5-15 Platelet Count 213 10^3/uL 150-450 Mean Platelet Volume 8 um3 7.4-10.4 Abs Neutrophils 7.2 10^3/uL 1.5-7.7 Abs Lymphocytes 2.1 10^3/uL 1.0-4.8 Abs Monocytes 1.2 10^3/uL High 0-0.8 Abs Eosinophils 0.1 10^3/uL 0-0.6 Abs Basophils 0.1 10^3/uL 0-0.2 Abs Nucleated RBC 0.04 10^3/uL Granulocyte % 67.3 % 38-83 Lymphocyte % 19.4 % Low 25-47 Monocyte % 11.5 % High 1-9 Eosinophil % 1.3 % 0-6 Basophil % 0.5 % 0-2 Nucleated Red Blood Cells % 0.4 Laboratory test finding 08/13/2014 C Reactive Protein 1.50 mg/L < 5.00 46 Comp Metabolic Panel 08/13/2014 Sodium 135 mmol/L 133-145 Potassium 4.7 mmol/L 3.7-5.6 Chloride 106 mmol/L 101-111 Co2 Carbon Dioxide 23 mmol/L 22-32 Anion Gap 6 mmol/L 2-11 Glucose 109 mg/dL High 70-100 Blood Urea Nitrogen 26 mg/dL High 6-24 Creatinine 1.23 mg/dL High 0.67-1.17 BUN/Creatinine Ratio 21.1 High 8-20 Calcium 9.9 mg/dL 8.6-10.3 Total Protein 7.6 g/dL 6.4-8.9 Albumin 4.1 g/dL 3.2-5.2 Globulin 3.5 g/dL 2-4 Albumin/Globulin Ratio 1.2 1-3 Total Bilirubin 0.50 mg/dL 0.2-1.0 Alkaline Phosphatase 74 U/L 34-104 Alt 30 U/L 7-52 Ast 29 U/L 13-39 Egfr Non- 57.1 >60 Egfr 73.4 >60 47 Laboratory test finding 08/13/2014 Erythrocyte Sed Rate 5 mm/Hr 0-40 Laboratory test finding 06/20/2014 Free T3 2.80 pg/mL 2.5-3.9 48, 49 Free T4 0.84 ng/mL 0.61-1.12 48, 50 TSH (Thyroid Stimulating Horm) 2.50 IU/mL 0.34-5.60 48, 51 Laboratory test finding 03/06/2014 TSH (Thyroid Stimulating 2.58 IU/mL 0.34-5.60 Horm) T4 5.24 g/dL Low 6.09-12.23 Total T3 0.60 ng/mL Low 0.87-1.78 Lipid Profile (Trig/Chol/HDL) 12/29/2013 Triglycerides 139 mg/dL 52 Cholesterol 154 mg/dL 53 HDL Cholesterol 34.6 mg/dL 54 LDL Cholesterol 92 mg/dL 55 Laboratory test finding 12/29/2013 Ast 19 U/L 13-39 CBC No Diff 08/29/2013 White Blood Count 5.4 10^3/uL 4.8-10.8 Red Blood Count 5.32 10^6/uL 4.0-5.4 Hemoglobin 15.8 g/dL 14.0-18.0 Hematocrit 49 % 42-52 Mean Corpuscular Volume 92 fL 80-94 Mean Corpuscular Hemoglobin 30 pg 27-31 Mean Corpuscular HGB Conc 32 g/dL 31-36 Red Cell Distribution Width 13 % 10.5-15 Platelet Count 186 10^3/uL 150-450 Mean Platelet Volume 8 um3 7.4-10.4 Comp Metabolic Panel 08/29/2013 Sodium 139 mmol/L 133-145 Potassium 4.0 mmol/L 3.5-5.0 Chloride 109 mmol/L 101-111 Co2 Carbon Dioxide 25.0 mmol/L 22-32 Anion Gap 5.0 mmol/L 2-11 Glucose 94 mg/dL 70-100 Blood Urea Nitrogen 21 mg/dL 6-24 Creatinine 1.20 mg/dL 0.50-1.40 BUN/Creatinine Ratio 17.5 8-20 Calcium 9.5 mg/dL 8.1-9.9 Total Protein 6.6 g/dL 6.2-8.1 Albumin 3.3 g/dL 3.2-5.2 Globulin 3.3 g/dL 2-4 Albumin/Globulin Ratio 1.0 1-3 Total Bilirubin 0.7 mg/dL 0.4-1.5 Alkaline Phosphatase 65 U/L 30-110 Alt 23 U/L 14-54 Ast 25 U/L 12-42 Egfr Non- 58.9 >60 Egfr 75.7 >60 56 Laboratory test finding 04/03/2013 TSH (Thyroid Stimulating 2.33 miu/mL 0.34-5.60 Horm) CBC Auto Diff 02/21/2013 White Blood Count 7.5 10^3/uL 4.8-10.8 Red Blood Count 5.32 10^6/uL 4.0-5.4 Hemoglobin 16.3 g/dL 14.0-18.0 Hematocrit 48 % 42-52 Mean Corpuscular Volume 91 fL 80-94 Mean Corpuscular Hemoglobin 31 pg 27-31 Mean Corpuscular HGB Conc 34 g/dL 31-36 Red Cell Distribution Width 14 % 10.5-15 Platelet Count 201 10^3/uL 150-450 Mean Platelet Volume 9 um3 7.4-10.4 Abs Neutrophils 4.6 10^3/uL 1.5-7.7 Abs Lymphocytes 1.8 10^3/uL 1.0-4.8 Abs Monocytes 0.9 10^3/uL High 0-0.8 Abs Eosinophils 0.1 10^3/uL 0-0.6 Abs Basophils 0 10^3/uL 0-0.2 Abs Nucleated RBC 0.03 10^3/uL Granulocyte % 61.6 % 38-83 Lymphocyte % 24.1 % Low 25-47 Monocyte % 12.7 % High 1-9 Eosinophil % 1.6 % 0-6 Basophil % 0 % 0-2 Nucleated Red Blood Cells % 0.3 Comp Metabolic Panel 02/21/2013 Sodium 137 mmol/L 133-145 Potassium 4.0 mmol/L 3.5-5.0 Chloride 105 mmol/L 101-111 Co2 Carbon Dioxide 26.0 mmol/L 22-32 Anion Gap 6.0 mmol/L 2-11 Glucose 80 mg/dL 70-100 Blood Urea Nitrogen 16 mg/dL 6-24 Creatinine 1.20 mg/dL 0.50-1.40 BUN/Creatinine Ratio 13.3 8-20 Calcium 9.5 mg/dL 8.1-9.9 Total Protein 6.3 g/dL 6.2-8.1 Albumin 3.5 g/dL 3.2-5.2 Globulin 2.8 g/dL 2-4 Albumin/Globulin Ratio 1.3 1-3 Total Bilirubin 0.7 mg/dL 0.4-1.5 Alkaline Phosphatase 67 U/L 30-110 Alt 23 U/L 14-54 Ast 24 U/L 12-42 Egfr Non- 58.9 >60 Egfr 75.7 >60 57 Lipid Profile (Trig/Chol/HDL) 08/16/2012 Triglycerides 115 mg/dL 40-200 Cholesterol 182 mg/dL Less than 200 58 HDL Cholesterol 37 mg/dL Low 40-60 59 Cholesterol/HDL Ratio 4.9 AVERAGE High 1-4.44 LDL Cholesterol 122.0 mg/dL High Less Than 100 Liver Function Panel 08/16/2012 Direct Bilirubin 0.1 mg/dL 0.1-0.5 Indirect Bilirubin 0.8 mg/dL 0.3-1.0 Comp Metabolic Panel 08/16/2012 Sodium 138 mmol/L 133-145 Potassium 3.9 mmol/L 3.5-5.0 Chloride 108 mmol/L 101-111 Co2 Carbon Dioxide 28.0 mmol/L 22-32 Anion Gap 2.0 mmol/L 2-11 Glucose 67 mg/dL Low 70-100 Blood Urea Nitrogen 17 mg/dL 6-24 Creatinine 1.10 mg/dL 0.50-1.40 BUN/Creatinine Ratio 15.5 8-20 Calcium 9.2 mg/dL 8.1-9.9 Total Protein 6.1 GM/DL Low 6.2-8.1 Albumin 3.5 GM/DL 3.2-5.2 Globulin 2.6 GM/DL 2-4 Albumin/Globulin Ratio 1.3 1-3 Total Bilirubin 0.9 mg/dL 0.1-1.0 60 Alkaline Phosphatase 71 U/L 30-110 Alt 26 U/L 14-54 Ast 30 U/L 12-42 Egfr Non- 65.3 >60 Egfr 83.9 >60 61 Laboratory test finding 06/07/2012 Occult Blood - Stool neg x3 Liver Function Panel 02/19/2012 Bilirubin Direct 0.2 mg/dL 0.1-0.5 Indirect Bilirubin 0.7 mg/dL 0.3-1.0 62 CBC Auto Diff 02/19/2012 White Blood Count 7.2 CUMM 4.8-10.8 Red Cell Count 5.14 CUMM 4.6-6.2 Hemoglobin 16.6 g/dL 14.0-18.0 Hematocrit 47 % 42-52 Mean Corpuscular Volume 92 um3 80-94 Mean Corpuscular Hemoglob 32 pg High 27-31 Mean Corpuscular HGB Cone 35 g/dL 32-36 Redcell Distribution WDTH 14 % 10.5-15 Platelet Count 200 CUMM 150-450 Mean Platelet Volume 8.7 um3 7.4-10.4 Gran % 62.3 % 38-83 Lymph % 26.2 % 25-47 Mononuclear % 11.0 % High 1-9 Eosinophil % 0.3 % 0-6 Basophil % 0.2 % 0-2 Abs Lymphs 1.9 1.0-4.8 Abs Mononuclear 0.8 0-0.8 Absolute Neutrophil Count 4.5 1.5-7.7 Abs Eosinophils 0 0-0.6 Abs Basophils 0 0-0.2 Comp Metabolic Panel 02/19/2012 Sodium 137 mmol/L 135-145 Potassium 3.9 mmol/L 3.5-5.0 Chloride 105 mmol/L 101-111 Co2 (Carbon Dioxide) 27.0 mmol/L 22-32 Anion Gap 5.0 mmol/L 2-11 63 Glucose 84 mg/dL 70-100 BUN 21 mg/dL 6-24 Creatinine 1.2 mg/dL 0.50-1.40 One Over Creatinine 0.83 BUN/Creatinine Ratio 17.5 8-20 Calcium 9.1 mg/dL 8.1-9.9 Total Protein 6.1 GM/DL Low 6.2-8.1 Albumin 3.5 GM/DL 3.2-5.2 Globulin 2.6 GM/DL 2-4 Albumin/Globulin Ratio 1.3 1-3 Bilirubin Total 0.9 mg/dL 0.4-1.5 64 Alkaline Phosphatase 65 U/L 39-117 Alt (SGPT) 23 U/L 17-63 Ast (Sgot) 28 U/L 12-42 eGFR Non- 59.0 > 60 eGFR 75.9 > 60 65 Laboratory test finding 02/19/2012 TSH 3.99 MIU/ML 0.34-5.60 CBC Auto Diff 03/02/2011 White Blood Count 6.9 CUMM 4.8-10.8 Red Cell Count 5.24 CUMM 4.6-6.2 Hemoglobin 16.7 g/dL 14.0-18.0 Hematocrit 48 % 42-52 Mean Corpuscular Volume 92 um3 80-94 Mean Corpuscular Hemoglob 32 pg High 27-31 Mean Corpuscular HGB Cone 35 g/dL 32-36 Redcell Distribution WDTH 14 % 10.5-15 Platelet Count 194 CUMM 150-450 Mean Platelet Volume 8.7 um3 7.4-10.4 Gran % 76.2 % 38-83 Lymph % 17.2 % Low 25-47 Mononuclear % 6.3 % 1-9 Eosinophil % 0.2 % 0-6 Basophil % 0.1 % 0-2 Abs Lymphs 1.2 1.0-4.8 Abs Mononuclear 0.4 0-0.8 Absolute Neutrophil Count 5.3 1.5-7.7 Abs Eosinophils 0 0-0.6 Abs Basophils 0 0-0.2 66 Comp Metabolic Panel 03/02/2011 Sodium 137 mmol/L 135-145 Potassium 4.0 mmol/L 3.5-5.0 Chloride 107 mmol/L 101-111 Co2 (Carbon Dioxide) 26.0 mmol/L 22-32 Anion Gap 4.0 mmol/L 2-11 67 Glucose 136 mg/dL High 70-100 BUN 20 mg/dL 6-24 Creatinine 1.10 mg/dL 0.50-1.40 One Over Creatinine 0.90 BUN/Creatinine Ratio 18.2 8-20 Calcium 9.4 mg/dL 8.1-9.9 Total Protein 6.7 GM/DL 6.2-8.1 Albumin 3.6 GM/DL 3.2-5.2 Globulin 3.1 GM/DL 2-4 Albumin/Globulin Ratio 1.2 1-3 Bilirubin Total 1.1 mg/dL 0.4-1.5 68 Alkaline Phosphatase 66 U/L 39-117 Alt (SGPT) 30 U/L 17-63 Ast (Sgot) 30 U/L 12-42 eGFR Non- 65.4 > 60 eGFR 84.2 > 60 69 Laboratory test finding 03/02/2011 TSH 2.32 MIU/ML 0.34-5.60 Urine Culture & 03/02/2011 Urine Culture NG 70 Sensitivi Sensitivi Urinalysis 03/02/2011 Ua Color YELLOW Yellow Appearance-Urine CLEAR Clear Specific Holcomb-Ur 1.013 1.010-1.030 Esterase-Urine NEGATIVE Negative Nitrite NEGATIVE Negative [id number] NEGATIVE Negative Protein-Urine NEGATIVE Negative PH-Urine 5.5 5-9 Blood-Urine NEGATIVE Negative Ketones-Urine NEGATIVE Negative Bilirubin-Ur NEGATIVE Negative Glucose-Urine NEGATIVE Negative Comp Metabolic Panel 07/15/2010 Sodium 137 mmol/L 135-145 Potassium 3.8 mmol/L 3.5-5.0 Chloride 107 mmol/L 101-111 Co2 (Carbon Dioxide) 26.0 mmol/L 22-32 Anion Gap 4.0 mmol/L 2-11 71 Glucose 86 mg/dL 70-100 72 BUN 20 mg/dL 6-24 Creatinine 1.02 mg/dL 0.50-1.40 One Over Creatinine 0.90 BUN/Creatinine Ratio 19.6 8-20 Calcium 8.9 mg/dL 8.1-9.9 Total Protein 7.0 GM/DL 6.2-8.1 Albumin 3.7 GM/DL 3.2-5.2 Globulin 3.3 GM/DL 2-4 Albumin/Globulin Ratio 1.1 1-3 Bilirubin Total 0.9 mg/dL 0.4-1.5 73 Alkaline Phosphatase 67 U/L 39-117 Alt (SGPT) 30 U/L 17-63 Ast (Sgot) 32 U/L 12-42 eGFR Non- 76.1 > 60 eGFR 92.1 > 60 74 CBC With Manual Diff 07/15/2010 White Blood Count 6.3 CUMM 4.8-10.8 Red Cell Count 5.18 CUMM 4.6-6.2 Hemoglobin 16.6 g/dL 14.0-18.0 Hematocrit 47 % 42-52 Mean Corpuscular Volume 91 um3 80-94 Mean Corpuscular Hemoglob 32 pg High 27-31 Mean Corpuscular HGB Cone 35 g/dL 32-36 Redcell Distribution WDTH 14 % 10.5-15 Platelet Count 203 CUMM 150-450 Mean Platelet Volume 7.9 um3 7.4-10.4 Polysegmented Neutrophil 70 % 38-83 Band Neutrophil 3 % 0-8 Lymphocyte 15 % Low 25-47 Monocyte 8 % 0-13 Atypical Lymph 4 % 0-6 Absolute Neutrophil Count 4.5 RBC Morphology NORMAL Laboratory test finding 07/13/2010 PSA Screening 1.76 NG/ML 0-4 75 CBC With Electronic Diff 07/13/2010 White Blood Count 5.7 CUMM 4.8-10.8 Red Cell Count 5.24 CUMM 4.6-6.2 Hemoglobin 16.8 g/dL 14.0-18.0 Hematocrit 48 % 42-52 Mean Corpuscular Volume 91 um3 80-94 Mean Corpuscular Hemoglob 32 pg High 27-31 Mean Corpuscular HGB Cone 35 g/dL 32-36 Redcell Distribution WDTH 14 % 10.5-15 Platelet Count 218 CUMM 150-450 Mean Platelet Volume 7.8 um3 7.4-10.4 Gran % 61.2 % 38-83 Lymph % 24.2 % Low 25-47 Mononuclear % 14.3 % High 1-9 Eosinophil % 0.1 % 0-6 Basophil % 0.2 % 0-2 Abs Lymphs 1.4 1.0-4.8 Abs Mononuclear 0.8 0-0.8 Absolute Neutrophil Count 3.5 1.5-7.7 Abs Eosinophils 0 0-0.6 Abs Basophils 0 0-0.2 Comp Metabolic Panel 07/13/2010 Sodium 141 mmol/L 135-145 Potassium 4.1 mmol/L 3.5-5.0 Chloride 107 mmol/L 101-111 Co2 (Carbon Dioxide) 25.0 mmol/L 22-32 Anion Gap 9.0 mmol/L 2-11 76 Glucose 87 mg/dL 70-100 77 BUN 21 mg/dL 6-24 Creatinine 1.00 mg/dL 0.50-1.40 One Over Creatinine 1.00 BUN/Creatinine Ratio 21.0 High 8-20 Calcium 8.8 mg/dL 8.1-9.9 Total Protein 6.6 GM/DL 6.2-8.1 Albumin 3.8 GM/DL 3.2-5.2 Globulin 2.8 GM/DL 2-4 Albumin/Globulin Ratio 1.4 1-3 Bilirubin Total 1.1 mg/dL 0.4-1.5 78 Alkaline Phosphatase 59 U/L 39-117 Alt (SGPT) 23 U/L 17-63 Ast (Sgot) 32 U/L 12-42 eGFR Non- 77.8 > 60 eGFR 94.2 > 60 79 Laboratory test finding 02/24/2009 Hepatitis C Antibody NEGATIVE Negative CBC With Manual Diff 12/28/2008 White Blood Count 10.0 CUMM 4.8-10.8 Red Cell Count 5.21 CUMM 4.6-6.2 Hemoglobin 15.5 g/dL 14.0-18.0 Hematocrit 46 % 42-52 Mean Corpuscular Volume 89 um3 80-94 Mean Corpuscular Hemoglob 30 pg 27-31 Mean Corpuscular HGB Cone 34 g/dL 32-36 Redcell Distribution WDTH 14 % 10.5-15 Platelet Count 243 CUMM 150-450 Mean Platelet Volume 8.2 um3 7.4-10.4 Polysegmented Neutrophil 43 % 38-83 Lymphocyte 50 % High 25-47 Monocyte 3 % 0-13 Eosenophil 4 % 0-6 Absolute Neutrophil Count 4.3 80 Anisocytosis SLIGHT Manual Diff Comments (SEE NOTE) 81 Comp Metabolic Panel 12/28/2008 Sodium 134 mmol/L Low 135-145 Potassium 4.4 mmol/L 3.5-5.0 Chloride 98 mmol/L Low 101-111 Co2 (Carbon Dioxide) 30.0 mmol/L 22-32 Anion Gap 6.0 mmol/L 2-11 82 Glucose 80 mg/dL 70-100 83 BUN 19 mg/dL 6-24 Creatinine 1.10 mg/dL 0.50-1.40 One Over Creatinine 0.90 BUN/Creatinine Ratio 17.3 8-20 Calcium 8.8 mg/dL 8.1-9.9 84 Total Protein 6.3 GM/DL 6.2-8.1 Albumin 3.4 GM/DL 3.2-5.2 Globulin 2.9 GM/DL 2-4 Albumin/Globulin Ratio 1.2 1-3 Bilirubin Total 0.8 mg/dL 0.4-1.5 Alkaline Phosphatase 64 U/L 39-117 Alt (SGPT) 19 U/L 17-63 Ast (Sgot) 23 U/L 12-42 Lipid Profile (Trig/Chol/HDL) 12/28/2008 Triglyceride 159 mg/dL 40-200 Cholesterol 167 mg/dL Less Than 200 85 High Density Lipoprotein 32 mg/dL Low 40-60 86 Low Density Lipoprotein 103 mg/dL High Less Than 100 87 Cholesterol/HDL Ratio 5.22 AVERAGE High 1-4.97 Laboratory test finding 12/28/2008 TSH 1.97 MIU/ML 0.34-5.60 Laboratory test finding 04/13/2008 TSH 2.03 MIU/ML 0.34-5.60 Lipid Profile (Trig/Chol/HDL) 04/13/2008 Triglyceride 222 mg/dL High 40- 200 Cholesterol 172 mg/dL Less Than 200 88 High Density Lipoprotein 31 mg/dL Low 40-60 89 Cholesterol/HDL Ratio 5.55 AVERAGE High 1-4.97 Low Density Lipoprotein 97 mg/dL Less Than 100 90 Liver Function Panel 04/13/2008 Total Protein 6.5 GM/DL 6.2-8.1 Albumin 3.5 GM/DL 3.2-5.2 Globulin 3.0 GM/DL 2-4 Albumin/Globulin Ratio 1.2 1-3 Bilirubin Total 0.7 mg/dL 0.4-1.5 Bilirubin Direct 0.1 mg/dL 0.1-0.5 Indirect Bilirubin 0.6 mg/dL 0.1-0.75 Alkaline Phosphatase 77 U/L 39-117 Alt (SGPT) 23 U/L 17-63 Ast (Sgot) 28 U/L 12-42 Basic Metabolic Panel 04/13/2008 Sodium 138 mmol/L 135-145 Potassium 4.2 mmol/L 3.5-5.0 Chloride 108 mmol/L 101-111 Co2 (Carbon Dioxide) 29.0 mmol/L 22-32 Anion Gap 1.0 mmol/L Low 2-11 91 Glucose 82 mg/dL 70-105 BUN 17 mg/dL 6-24 Creatinine 1.0 mg/dL 0.5-1.4 One Over Creatinine 1.00 BUN/Creatinine Ratio 17.0 8-20 Calcium 8.7 mg/dL 8.1-9.9 92 CBC With Electronic Diff 04/13/2008 White Blood Count 10.9 CUMM High 4.8- 10.8 Red Cell Count 5.14 CUMM 4.6-6.2 Hemoglobin 15.4 g/dL 14.0-18.0 Hematocrit 44 % 42-52 Mean Corpuscular Volume 86 um3 80-94 Mean Corpuscular Hemoglob 30 pg 27-31 Mean Corpuscular HGB Cone 35 g/dL 32-36 Redcell Distribution WDTH 15 % 10.5-15 Platelet Count 236 CUMM 150-450 Mean Platelet Volume 8.9 um3 7.4-10.4 Gran % 54.0 % 38-83 Lymph % 35.4 % 20-45 Mononuclear % 5.6 % 1-9 Eosinophil % 4.5 % 0-6 Basophil % 0.5 % 0-2 Abs Lymphs 3.9 1.0-4.8 Abs Mononuclear 0.6 0-0.8 Absolute Neutrophil Count 5.9 1.5-7.7 Abs Eosinophils 0.5 0-0.6 Abs Basophils 0.1 0-0.2 Laboratory test finding 04/13/2008 PSA Screening 3.03 NG/ML 0-4 93 Laboratory test finding 04/09/2008 Occult Blood - Stool neg x3 CBC With Manual Diff 01/13/2008 White Blood Count 11.6 CUMM High 4.8-10.8 Absolute Neutrophil Count 6.6 Atypical Lymph 2 % 0-6 Anisocytosis SLIGHT Band Neutrophil 1 % 0-8 Hematocrit 44 % 42-52 Hemoglobin 15.0 g/dL 14.0-18.0 Eosenophil 2 % 0-6 Lymphocyte 36 % 5-47 Mean Corpuscular HGB Cone 34 g/dL 32-36 Mean Corpuscular Hemoglob 30 pg 27-31 Mean Corpuscular Volume 87 um3 80-94 Monocyte 3 % 0-13 Mean Platelet Volume 8.2 um3 7.4-10.4 Platelet Count 306 CUMM 150-450 Polysegmented Neutrophil 56 % 38-83 Red Cell Count 5.06 CUMM 4.6-6.2 Redcell Distribution WDTH 14 % 10.5-15 CBC With Manual Diff 11/04/2007 White Blood Count 13.6 CUMM High 4.8-10.8 Absolute Neutrophil Count 6.8 Atypical Lymph 6 % 0-6 Anisocytosis SLIGHT Band Neutrophil 2 % 0-8 Hematocrit 48 % 42-52 Hemoglobin 16.2 g/dL 14.0-18.0 Eosenophil 2 % 0-6 Lymphocyte 37 % 5-47 Mean Corpuscular HGB Cone 34 g/dL 32-36 Mean Corpuscular Hemoglob 30 pg 27-31 Mean Corpuscular Volume 88 um3 80-94 Monocyte 5 % 0-13 Mean Platelet Volume 8.5 um3 7.4-10.4 Platelet Count 272 CUMM 150-450 Polysegmented Neutrophil 48 % 38-83 Red Cell Count 5.45 CUMM 4.6-6.2 Redcell Distribution WDTH 15 % 10.5-15 CBC With Manual Diff 09/11/2007 White Blood Count 11.9 CUMM High 4.8-10.8 Absolute Neutrophil Count 7.9 Atypical Lymph 2 % 0-6 Anisocytosis SLIGHT Band Neutrophil 1 % 0-8 Basophil 2 % 0-2 Hematocrit 49 % 42-52 Hemoglobin 16.5 g/dL 14.0-18.0 Eosenophil 6 % 0-6 Lymphocyte 19 % 5-47 Mean Corpuscular HGB Cone 34 g/dL 32-36 Mean Corpuscular Hemoglob 30 pg 27-31 Mean Corpuscular Volume 88 um3 80-94 Monocyte 4 % 0-13 Mean Platelet Volume 8.6 um3 7.4-10.4 Platelet Count 243 CUMM 150-450 Polysegmented Neutrophil 66 % 38-83 Red Cell Count 5.51 CUMM 4.6-6.2 Redcell Distribution WDTH 14 % 10.5-15 CBC With Manual Diff 07/01/2007 White Blood Count 13.5 CUMM High 4.8-10.8 Absolute Neutrophil Count 7.9 Atypical Lymph 2 % 0-6 Anisocytosis SLIGHT Hematocrit 46 % 42-52 Hemoglobin 15.5 g/dL 14.0-18.0 Eosenophil 4 % 0-6 Lymphocyte 33 % 5-47 Mean Corpuscular HGB Cone 34 g/dL 32-36 Mean Corpuscular Hemoglob 30 pg 27-31 Mean Corpuscular Volume 89 um3 80-94 Monocyte 2 % 0-13 Mean Platelet Volume 8.6 um3 7.4-10.4 Platelet Count 235 CUMM 150-450 Polysegmented Neutrophil 59 % 38-83 Red Cell Count 5.20 CUMM 4.6-6.2 Redcell Distribution WDTH 14 % 10.5-15 Laboratory test finding 06/06/2007 Occult Blood - Stool NEG.X3 Laboratory test finding 04/24/2007 TSH 1.53 MIU/ML 0.34-5.60 PSA Screening 1.36 NG/ML 0.01-4.0 94 CBC With Manual Diff 04/05/2007 White Blood Count 13.0 CUMM High 4.8-10.8 Absolute Neutrophil Count 5.8 Atypical Lymph 9 % High 0-6 Band Neutrophil 2 % 0-8 Cindy Cells 1+ Hematocrit 47 % 42-52 Hemoglobin 15.9 g/dL 14.0-18.0 Eosenophil 6 % 0-6 Lymphocyte 36 % 5-47 Mean Corpuscular HGB Cone 34 g/dL 32-36 Mean Corpuscular Hemoglob 30 pg 27-31 Mean Corpuscular Volume 87 um3 80-94 Monocyte 4 % 0-13 Mean Platelet Volume 8.4 um3 7.4-10.4 Platelet Count 256 CUMM 150-450 Polychromasia SLIGHT Polysegmented Neutrophil 43 % 38-83 Red Cell Count 5.36 CUMM 4.6-6.2 Redcell Distribution WDTH 14 % 10.5-15 Comp Metabolic Panel 02/07/2007 One Over Creatinine 0.90 Anion Gap 4.0 mmol/L 2-11 95 Albumin/Globulin Ratio 1.4 1-3 Albumin 3.6 GM/DL 3.2-5.2 Alkaline Phosphatase 78 U/L 39-117 Alt (SGPT) 19 U/L 17-63 Ast (Sgot) 25 U/L 12-42 BUN 14 mg/dL 6-24 Calcium 9.0 mg/dL 8.7-10.2 Chloride 108 mmol/L 101-111 Co2 (Carbon Dioxide) 30.0 mmol/L 22-32 Globulin 2.5 GM/DL 2-4 Glucose 78 mg/dL 70-105 Potassium 4.2 mmol/L 3.5-5.0 Sodium 142 mmol/L 135-145 Bilirubin Total 1.0 mg/dL 0.4-1.5 Total Protein 6.1 GM/DL Low 6.2-8.1 BUN/Creatinine Ratio 12.7 8-20 Creatinine 1.1 mg/dL 0.5-1.4 CBC With Manual Diff 02/07/2007 White Blood Count 11.8 CUMM High 4.8-10.8 Absolute Neutrophil Count 5.5 Atypical Lymph 4 % 0-6 Anisocytosis SLIGHT Basophil 1 % 0-2 Hematocrit 46 % 42-52 Hemoglobin 15.6 g/dL 14.0-18.0 Eosenophil 4 % 0-6 Lymphocyte 42 % 5-47 Mean Corpuscular HGB Cone 34 g/dL 32-36 Mean Corpuscular Hemoglob 29 pg 27-31 Mean Corpuscular Volume 86 um3 80-94 Monocyte 2 % 0-13 Mean Platelet Volume 8.9 um3 7.4-10.4 Platelet Count 210 CUMM 150-450 Polysegmented Neutrophil 47 % 38-83 Red Cell Count 5.32 CUMM 4.6-6.2 Redcell Distribution WDTH 14 % 10.5-15 CBC With Manual Diff 12/10/2006 White Blood Count 17.6 CUMM High 4.8-10.8 Absolute Neutrophil Count 12.6 Atypical Lymph 6 % 0-6 Anisocytosis SLIGHT Basophil 1 % 0-2 Hematocrit 46 % 42-52 Hemoglobin 15.8 g/dL 14.0-18.0 Eosenophil 1 % 0-6 Lymphocyte 17 % 5-47 Mean Corpuscular HGB Cone 35 g/dL 32-36 Mean Corpuscular Hemoglob 30 pg 27-31 Mean Corpuscular Volume 86 um3 80-94 Monocyte 3 % 0-13 Mean Platelet Volume 8.2 um3 7.4-10.4 Platelet Count 258 CUMM 150-450 Polysegmented Neutrophil 72 % 38-83 Red Cell Count 5.32 CUMM 4.6-6.2 Redcell Distribution WDTH 15 % 10.5-15 Lipid Profile 12/10/2006 Cholesterol/HDL Ratio 5.64 AVERAGE High 1-4.97 (Trig/Chol/HDL) Cholesterol 158 mg/dL Less Than 200 96 Triglyceride 140 mg/dL 40-200 High Density Lipoprotein 28 mg/dL Low 40-60 97 Low Density Lipoprotein 102 mg/dL High Less Than 100 98 Laboratory test finding 12/10/2006 PSA Screening 4.31 NG/ML High 0.01-4.0 99 Iron & Iron Binding Capacity 12/10/2006 Iron Total 46 g/dL 45-182 Unsaturated Iron Binding 297 g/dL Total Iron Binding Capacity 343 g/dL 250-450 % Iron Saturation 13 % Low 15-55 Laboratory test finding 12/10/2006 TSH 1.96 MIU/ML 0.34-5.60 CBC With Electronic Diff 08/29/2006 White Blood Count 12.8 CUMM High 4.8- 10.8 Abs Basophils 0.1 0-0.2 Abs Eosinophils 0.6 0-0.6 Absolute Neutrophil Count 7.2 1.5-7.7 Abs Lymphs 4.2 1.0-4.8 Abs Mononuclear 0.8 0-0.8 Basophil % 0.5 % 0-2 Hematocrit 43 % 42-52 Hemoglobin 14.4 g/dL 14.0-18.0 Eosinophil % 4.3 % 0-6 Gran % 56.1 % 38-83 Lymph % 32.9 % 20-45 Mean Corpuscular HGB Cone 34 g/dL 32-36 Mean Corpuscular Hemoglob 30 pg 27-31 Mean Corpuscular Volume 88 um3 80-94 Mean Platelet Volume 8.2 um3 7.4-10.4 Mononuclear % 6.2 % 1-9 Platelet Count 325 CUMM 150-450 Red Cell Count 4.81 CUMM 4.6-6.2 Redcell Distribution WDTH 13 % 10.5-15 Laboratory test finding 07/11/2006 Ferritin 23 NG/ML Low 24-336 Iron & Iron Binding Capacity 07/11/2006 Iron Total 51 g/dL 45-182 Unsaturated Iron Binding 317 g/dL Total Iron Binding Capacity 368 g/dL 250-450 % Iron Saturation 14 % Low 15-55 Transferrin 263.1 CBC With Manual Diff 07/11/2006 White Blood Count 11.9 CUMM High 4.8-10.8 Hematocrit 47 % 42-52 Hemoglobin 16.2 g/dL 14.0-18.0 Mean Corpuscular HGB Cone 34 g/dL 32-36 Mean Corpuscular Hemoglob 30 pg 27-31 Mean Corpuscular Volume 88 um3 80-94 Mean Platelet Volume 8.7 um3 7.4-10.4 Platelet Count 238 CUMM 150-450 Polysegmented Neutrophil 42 % 38-83 Red Cell Count 5.34 CUMM 4.6-6.2 Redcell Distribution WDTH 14 % 10.5-15 Absolute Neutrophil Count 5.1 Atypical Lymph 1 % 0-6 Anisocytosis SLIGHT Band Neutrophil 1 % 0-8 Eosenophil 7 % High 0-6 Lymphocyte 42 % 5-47 Monocyte 7 % 0-13 Laboratory test finding 05/02/2006 TSH 4.63 MIU/ML 0.34-5.60 Laboratory test finding 03/06/2006 TSH 3.82 MIU/ML 0.34-5.60 CBC With Electronic Diff 03/06/2006 White Blood Count 12.7 CUMM High 4.8- 10.8 Abs Basophils 0.1 0-0.2 Abs Eosinophils 0.4 0-0.6 Absolute Neutrophil Count 6.5 1.5-7.7 Abs Lymphs 5.1 High 1.0-4.8 Abs Mononuclear 0.7 0-0.8 Basophil % 0.5 % 0-2 Hematocrit 45 % 42-52 Hemoglobin 15.5 g/dL 14.0-18.0 Eosinophil % 2.9 % 0-6 Gran % 50.8 % 38-83 Lymph % 40.0 % 20-45 Mean Corpuscular HGB Cone 35 g/dL 32-36 Mean Corpuscular Hemoglob 30 pg 27-31 Mean Corpuscular Volume 86 um3 80-94 Mean Platelet Volume 8.4 um3 7.4-10.4 Mononuclear % 5.8 % 1-9 Platelet Count 262 CUMM 150-450 Red Cell Count 5.19 CUMM 4.6-6.2 Redcell Distribution WDTH 15 % 10.5-15 CBC W/ Manual Diff 01/08/2006 White Blood Count 13.1 High 4.8-10.8 RBC Red Blood Count 5.56 Hemoglobin 16.5 Hematocrit 48 MCV (Corpuscular Volume) 87 MCH (Corpuscular Hemoglobin) 30 MCHC (Corpuscular Hemog Conc) 34 RDW 14 Platelet Count 253 MPV 9.0 Bands 5 Lymphocytes 42 Monocytes 2 Eosinophils 4 Absolute Neutrophils 6.8 CMP Panel 03/24/2005 Albumin 3.5 Alt - SGPT 25 Calcium 9.2 Carbon Dioxide 28.0 Chloride 101 Creatinine 1.0 Glucose Serum 79 Alkaline Phosphatase 82 Potassium 4.4 Protien Total 6.3 Sodium 136 Ast - Sgot 32 BUN - Urea Nitrogen 17 CBC With Electronic Diff 03/24/2005 White Blood Count 9.9 RBC Red Blood Count 5.28 Hemoglobin 15.7 Hematocrit 46 MCV (Corpuscular Volume) 88 MCH (Corpuscular Hemoglobin) 30 MCHC (Corpuscular Hemog Conc) 34 RDW 14 Platelet Count 215 MPV 8.8 Eosinophils 0 Basophils 0.1 Absolute Basophils 0 Absolute Eosinophils 0 Absolute Lymphocytes 4.4 Absolute Monocytes 0.7 Laboratory test finding 03/24/2005 TSH Thyroid Stimulating Horm 3.27 PSA Total 1.1 Lipid Panel 03/24/2005 Cholesterol Total 184 Cholesterol/HDL Ratio 4.97 High Density Lipoprotein 37 LDL Low Density Lipoprotein 115 Triglycerides 160 CMP Panel 01/13/2005 Albumin 3.6 Alt - SGPT 23 Calcium 9.5 Carbon Dioxide 30.0 Chloride 101 Creatinine 1.1 Glucose Serum 95 Alkaline Phosphatase 89 Potassium 4.9 Protien Total 6.5 Sodium 136 Ast - Sgot 31 BUN - Urea Nitrogen 17 CBC With Electronic Diff 01/13/2005 White Blood Count 11.1 RBC Red Blood Count 5.52 Hemoglobin 16.5 Hematocrit 49 MCV (Corpuscular Volume) 89 MCH (Corpuscular Hemoglobin) 30 MCHC (Corpuscular Hemog Conc) 34 RDW 13 Platelet Count 246 MPV 8.7 Bands 4 Lymphocytes 16 Monocytes 9 Eosinophils 1 1 SEE RESULT BELOW Name: LEYLA CARRANZA : [address]: Ash Mcdermott MD Acct: [id number] Unit: [id number] AGE: 83 Location: [place] [address] Re04/14/18 Dis: 04/18/18 SEX: M Status: DIS IN SPEC: [id number] LAVERN: 04/14/18-[address] [facility] DR: Dain Bernstein MD REQ: [id number] RECD: 04/14/18 STATUS: SHAHEED SOLANO DR: Elliot Rivera DO _ SOURCE: BLOOD,VENO SPDESC: ORDERED: Blood Cult Procedure Result Reported Site Aerobic Culture Bottle Final 04/19/18- 1215 ML No Growth Day 5 Anaerobic Culture Bottle Final 04/19/18- 1215 ML No Growth Day 5 * ML - Main Lab . END OF REPORT DEPARTMENT OF PATHOLOGY, [address] [place] [address] Jeronimo Santos M.D. Director [facility] # [id number] 2 SEE RESULT BELOW Name: LEYLA CARRANZA : [address]: Ashly Jeter MD Acct: [id number] Unit: [id number] AGE: 83 Location: [place] [address] Re04/14/18 SEX: M Status: ADM IN SPEC: [id number] LAVERN: 04/14/[address] [facility] DR: Dain Bernstein MD REQ: [id number] RECD: 04/14/18 STATUS: SHAHEED SOLANO DR: Elliot Rivera DO _ SOURCE: URINE SPDESC: ORDERED: Urine Culture Procedure Result Reported Site Urine Culture Final 04/16/18- 0839 ML Organism 1 ENTEROCOCCUS FAECALIS [place] Count 50-75,000 (Many) CFU/ML 1. ENTEROCOCCUS FAECALIS M.I.C. RX --------- ------ Ampicillin <=2 S Penicillin 2 S Ciprofloxacin 1 S Gentamicin High Level S Levofloxacin 1 S Linezolid 2 S Nitrofurantoin <=16 S * Quinupristin/Dalfopristin R * Streptomycin High Level S Tetracycline >=16 R Tigecycline <=0.12 S Vancomycin 2 S Imipenem-Deduced S * Ampicillin/Sulbactam-Deduced S * These antibiotics are not available in the [facility] Formulary Contact the Microbiology Department for any additional antibiotic reporting. * ML - Main Lab . END OF REPORT DEPARTMENT OF PATHOLOGY, [address] [place] [address] Jeronimo Santos M.D. Director [facility] # [id number] 3 >100 to <200 pg/mL: likely compensated congestive heart failure (CHF) 200 to 400 pg/mL: likely moderate CHF >400 pg/mL: likely moderate to severe CHF 4 Result TnIDx:1.23 Called to [id number] at: 12:57:03 by:[id number] Read back by: LUIS 5 [facility] Severe Sepsis and Septic Shock Management Bundle Measure requires all lactic acids initially measuring >2.0 mmol/L be repeated. 6 Because ethnic data is not always readily available, this report includes an eGFR for both -Americans and non- Americans. The National Kidney Disease Education Program (NKDEP) does not endorse the use of the MDRD equation for patients that are not between the ages of 18 and 70, are , have extremes of body size, muscle mass, or nutritional status, or are non- or non-. According to the National Kidney Foundation, irrespective of diagnosis, the stage of the disease is based on the level of kidney function: Stage Description GFR(mL/min/1.73 m(2)) 1 Kidney damage with normal or decreased GFR 90 2 Kidney damage with mild decrease in GFR 60-89 3 Moderate decrease in GFR 30-59 4 Severe decrease in GFR 15-29 5 Kidney failure <15 (or dialysis) 7 [id number] 9 [id number] 10 Because ethnic data is not always readily available, this report includes an eGFR for both -Americans and non- Americans. The National Kidney Disease Education Program (NKDEP) does not endorse the use of the MDRD equation for patients that are not between the ages of 18 and 70, are , have extremes of body size, muscle mass, or nutritional status, or are non- or non-. According to the National Kidney Foundation, irrespective of diagnosis, the stage of the disease is based on the level of kidney function: Stage Description GFR(mL/min/1.73 m(2)) 1 Kidney damage with normal or decreased GFR 90 2 Kidney damage with mild decrease in GFR 60-89 3 Moderate decrease in GFR 30-59 4 Severe decrease in GFR 15-29 5 Kidney failure <15 (or dialysis) 11 [id number] 12 [id number] 13 [id number] 14 [id number] 15 Normal Range 180 to 914 Indeterminate Range 145 to 180 Deficient Range <145 16 SEE RESULT BELOW Name: LEYLA CARRANZA : [address]: Elliot Rivera DO Acct: [id number] Unit: [id number] AGE: 81 Location: [facility] Re07/19/16 SEX: M Status: REG REF SPEC: [id number] LAVERN: 07/19/[address]: Elliot Rivera DO REQ: [id number] RECD: 07/20/165489 STATUS: SOUT _ ORDERED: LEVEL IV COMMENTS: [id number] FINAL DIAGNOSIS Skin, left ankle, biopsy: -- Hemangioma. PRE-OPERATIVE DIAGNOSIS D48.5 GROSS DESCRIPTION The specimen is received in formalin labeled, Left Ankle, and consists of a 0.5 cm circular skin punch excised to a depth 0.7 cm with a central 0.4 x 0.1 cm darkened brown area. The specimen is bisected and entirely submitted in one cassette. Signed (signature on file) Jeronimo Santos MD [id number] END OF REPORT * ML=Testing performed at Main Lab DEPARTMENT OF PATHOLOGY, [address] [place] [address] Jeronimo Santos M.D. Director [facility] # [id number] 17 [id number] 18 Desirable <150 Borderline high 150-199 High 200-499 Very High >500 19 Desirable <200 Borderline high 200-239 High >239 20 Low <40 Desirable: 40-60 High: >60 21 Desirable: <100 mg/dL Near Optimal: 100-129 mg/dL Borderline High: 130-159 mg/dL High: 160-189 mg/dL Very High: >189 mg/dL 22 Because ethnic data is not always readily available, this report includes an eGFR for both -Americans and non- Americans. The National Kidney Disease Education Program (NKDEP) does not endorse the use of the MDRD equation for patients that are not between the ages of 18 and 70, are , have extremes of body size, muscle mass, or nutritional status, or are non- or non-. According to the National Kidney Foundation, irrespective of diagnosis, the stage of the disease is based on the level of kidney function: Stage Description GFR(mL/min/1.73 m(2)) 1 Kidney damage with normal or decreased GFR 90 2 Kidney damage with mild decrease in GFR 60-89 3 Moderate decrease in GFR 30-59 4 Severe decrease in GFR 15-29 5 Kidney failure <15 (or dialysis) 23 [id number] 24 Because ethnic data is not always readily available, this report includes an eGFR for both -Americans and non- Americans. The National Kidney Disease Education Program (NKDEP) does not endorse the use of the MDRD equation for patients that are not between the ages of 18 and 70, are , have extremes of body size, muscle mass, or nutritional status, or are non- or non-. According to the National Kidney Foundation, irrespective of diagnosis, the stage of the disease is based on the level of kidney function: Stage Description GFR(mL/min/1.73 m(2)) 1 Kidney damage with normal or decreased GFR 90 2 Kidney damage with mild decrease in GFR 60-89 3 Moderate decrease in GFR 30-59 4 Severe decrease in GFR 15-29 5 Kidney failure <15 (or dialysis) 25 Normal Range 180 to 914 Indeterminate Range 145 to 180 Deficient Range <145 26 Consistent with previous results on 08/16/15. 27 Consistent with previous results on 08/16/15. 28 Consistent with previous results on 08/16/15. 29 Consistent with previous results on 08/16/15. 30 Consistent with previous results on 08/16/15. 31 --- 01/20/16 1352 --- ABS NRBC previously reported as: 0.06 10 3/ul Consistent with previous results on 08/16/15. 32 Consistent with previous results on 08/16/15. 33 Reference Range and Interpretation: TnI (ng/mL) Interpretation Less Than 0.03 ng/mL Not supportive of diagnosis of DE 0.03 - 0.50 ng/mL Indeterminate: suggest serial studies if clinically indicated. Greater than 0.5 ng/mL Consistent with diagnosis of DE 34 Because ethnic data is not always readily available, this report includes an eGFR for both -Americans and non- Americans. The National Kidney Disease Education Program (NKDEP) does not endorse the use of the MDRD equation for patients that are not between the ages of 18 and 70, are , have extremes of body size, muscle mass, or nutritional status, or are non- or non-. According to the National Kidney Foundation, irrespective of diagnosis, the stage of the disease is based on the level of kidney function: Stage Description GFR(mL/min/1.73 m(2)) 1 Kidney damage with normal or decreased GFR 90 2 Kidney damage with mild decrease in GFR 60-89 3 Moderate decrease in GFR 30-59 4 Severe decrease in GFR 15-29 5 Kidney failure <15 (or dialysis) 35 Acute inflammation: >10.00 36 ADDITIONAL INFORMATION This is a qualitative test. The TB antigen IU/mL value is required for documentation on certain government reporting forms (e.g., Form I-693), but this value should not be used to monitor disease progression or response to therapy. Diagnosing or excluding tuberculosis disease, and assessing the probability of LTBI, require a combination of epidemiological, historical, medical, and diagnostic findings that should be taken into account when interpreting QuantiFERON-TB results. Test Performed by: [place] [address] Esthetician/Spa Coordinator: Max Hoffman II, M.D., Ph.D. 37 Because ethnic data is not always readily available, this report includes an eGFR for both -Americans and non- Americans. The National Kidney Disease Education Program (NKDEP) does not endorse the use of the MDRD equation for patients that are not between the ages of 18 and 70, are , have extremes of body size, muscle mass, or nutritional status, or are non- or non-. According to the National Kidney Foundation, irrespective of diagnosis, the stage of the disease is based on the level of kidney function: Stage Description GFR(mL/min/1.73 m(2)) 1 Kidney damage with normal or decreased GFR 90 2 Kidney damage with mild decrease in GFR 60-89 3 Moderate decrease in GFR 30-59 4 Severe decrease in GFR 15-29 5 Kidney failure <15 (or dialysis) 38 Acute inflammation: >10.00 39 Because ethnic data is not always readily available, this report includes an eGFR for both -Americans and non- Americans. The National Kidney Disease Education Program (NKDEP) does not endorse the use of the MDRD equation for patients that are not between the ages of 18 and 70, are , have extremes of body size, muscle mass, or nutritional status, or are non- or non-. According to the National Kidney Foundation, irrespective of diagnosis, the stage of the disease is based on the level of kidney function: Stage Description GFR(mL/min/1.73 m(2)) 1 Kidney damage with normal or decreased GFR 90 2 Kidney damage with mild decrease in GFR 60-89 3 Moderate decrease in GFR 30-59 4 Severe decrease in GFR 15-29 5 Kidney failure <15 (or dialysis) 40 Because ethnic data is not always readily available, this report includes an eGFR for both -Americans and non- Americans. The National Kidney Disease Education Program (NKDEP) does not endorse the use of the MDRD equation for patients that are not between the ages of 18 and 70, are , have extremes of body size, muscle mass, or nutritional status, or are non- or non-. According to the National Kidney Foundation, irrespective of diagnosis, the stage of the disease is based on the level of kidney function: Stage Description GFR(mL/min/1.73 m(2)) 1 Kidney damage with normal or decreased GFR 90 2 Kidney damage with mild decrease in GFR 60-89 3 Moderate decrease in GFR 30-59 4 Severe decrease in GFR 15-29 5 Kidney failure <15 (or dialysis) 41 [place] 42 Desirable <150 Borderline high 150-199 High 200-499 Very High >500 43 Desirable <200 Borderline high 200-239 High >239 44 Low <40 Desirable: 40-60 High: >60 45 Desirable <100 Near Optimal 100-129 Borderline high 130-159 High 160-189 Very High >189 46 Acute inflammation: >10.00 47 Because ethnic data is not always readily available, this report includes an eGFR for both -Americans and non- Americans. The National Kidney Disease Education Program (NKDEP) does not endorse the use of the MDRD equation for patients that are not between the ages of 18 and 70, are , have extremes of body size, muscle mass, or nutritional status, or are non- or non-. According to the National Kidney Foundation, irrespective of diagnosis, the stage of the disease is based on the level of kidney function: Stage Description GFR(mL/min/1.73 m(2)) 1 Kidney damage with normal or decreased GFR 90 2 Kidney damage with mild decrease in GFR 60-89 3 Moderate decrease in GFR 30-59 4 Severe decrease in GFR 15-29 5 Kidney failure <15 (or dialysis) 48 with next lab draw 49 with next lab draw 50 with next lab draw 51 with next lab draw 52 Desirable <150 Borderline high 150-199 High 200-499 Very High >500 53 Desirable <200 Borderline high 200-239 High >239 54 Low <40 Desirable: 40-60 High: >60 55 Desirable <100 Near Optimal 100-129 Borderline high 130-159 High 160-189 Very High >189 56 Because ethnic data is not always readily available, this report includes an eGFR for both -Americans and non- Americans. The National Kidney Disease Education Program (NKDEP) does not endorse the use of the MDRD equation for patients that are not between the ages of 18 and 70, are , have extremes of body size, muscle mass, or nutritional status, or are non- or non-. According to the National Kidney Foundation, irrespective of diagnosis, the stage of the disease is based on the level of kidney function: Stage Description GFR(mL/min/1.73 m(2)) 1 Kidney damage with normal or decreased GFR 90 2 Kidney damage with mild decrease in GFR 60-89 3 Moderate decrease in GFR 30-59 4 Severe decrease in GFR 15-29 5 Kidney failure <15 (or dialysis) 57 Because ethnic data is not always readily available, this report includes an eGFR for both -Americans and non- Americans. The National Kidney Disease Education Program (NKDEP) does not endorse the use of the MDRD equation for patients that are not between the ages of 18 and 70, are , have extremes of body size, muscle mass, or nutritional status, or are non- or non-. According to the National Kidney Foundation, irrespective of diagnosis, the stage of the disease is based on the level of kidney function: Stage Description GFR(mL/min/1.73 m(2)) 1 Kidney damage with normal or decreased GFR 90 2 Kidney damage with mild decrease in GFR 60-89 3 Moderate decrease in GFR 30-59 4 Severe decrease in GFR 15-29 5 Kidney failure <15 (or dialysis) 58 Desirable: Less than 200 MG/DL Borderline-High Risk: 200-239 MG/DL High-Risk: 240 MG/DL and over 59 HDL Interpretation: Undesirable: High Risk: Less than 40 MG/DL Desirable: Low Risk: Greater than 60 MG/DL 60 A metabolite of Naproxen, O-desmethylnaproxen, has been shown to interfere with the Jendrassik-Premont method for measuring total bilirubin. Samples from patients who have taken Naproxen have shown spurious elevation in total bilirubin levels. 61 Because ethnic data is not always readily available, this report includes an eGFR for both -Americans and non- Americans. The National Kidney Disease Education Program (NKDEP) does not endorse the use of the MDRD equation for patients that are not between the ages of 18 and 70, are , have extremes of body size, muscle mass, or nutritional status, or are non- or non-. According to the National Kidney Foundation, irrespective of diagnosis, the stage of the disease is based on the level of kidney function: Stage Description GFR(mL/min/1.73 m(2)) 1 Kidney damage with normal or decreased GFR 90 2 Kidney damage with mild decrease in GFR 60-89 3 Moderate decrease in GFR 30-59 4 Severe decrease in GFR 15-29 5 Kidney failure <15 (or dialysis) 62 Please note updated reference range, effective 05/05/10 63 Anion gap measurement may be of limited value in the presence of any alkalosis, especially in a combined acid base disorder. . 64 A metabolite of Naproxen, O-desmethylnaproxen, has been shown to interfere with the Jendrassik-Yenifer method for measuring total bilirubin. Samples from patients who have taken Naproxen have shown spurious elevation in total bilirubin levels. 65 Because ethnic data is not always readily available, this report includes an eGFR for both -Americans and non- Americans. The National Kidney Disease Education Program (NKDEP) does not endorse the use of the MDRD equation for patients that are not between the ages of 18 and 70, are , have extremes of body size, muscle mass, or nutritional status, or are non- or non-. According to the National Kidney Foundation, irrespective of diagnosis, the stage of the disease is based on the level of kidney function: Stage Description GFR(mL/min/1.73 m(2)) 1 Kidney damage with normal or decreased GFR 90 2 Kidney damage with mild decrease in GFR 60-89 3 Moderate decrease in GFR 30-59 4 Severe decrease in GFR 15-29 5 Kidney failure <15 (or dialysis) 66 Lymphopenia % 67 Anion gap measurement may be of limited value in the presence of any alkalosis, especially in a combined acid base disorder. . 68 A metabolite of Naproxen, O-desmethylnaproxen, has been shown to interfere with the Jendrassik-Yenifer method for measuring total bilirubin. Samples from patients who have taken Naproxen have shown spurious elevation in total bilirubin levels. 69 Because ethnic data is not always readily available, this report includes an eGFR for both -Americans and non- Americans. The National Kidney Disease Education Program (NKDEP) does not endorse the use of the MDRD equation for patients that are not between the ages of 18 and 70, are , have extremes of body size, muscle mass, or nutritional status, or are non- or non-. According to the National Kidney Foundation, irrespective of diagnosis, the stage of the disease is based on the level of kidney function: Stage Description GFR(mL/min/1.73 m(2)) 1 Kidney damage with normal or decreased GFR 90 2 Kidney damage with mild decrease in GFR 60-89 3 Moderate decrease in GFR 30-59 4 Severe decrease in GFR 15-29 5 Kidney failure <15 (or dialysis) 70 FINAL: NO GROWTH DAY 2 (<1,000 CFU/mL) 71 Anion gap measurement may be of limited value in the presence of any alkalosis, especially in a combined acid base disorder. . 72 Note change in reference range as of 06/04/08. The change was based on recommendations from the [place] [employer]. 73 A metabolite of Naproxen, O-desmethylnaproxen, has been shown to interfere with the Jendrassik-Premont method for measuring total bilirubin. Samples from patients who have taken Naproxen have shown spurious elevation in total bilirubin levels. 74 Because ethnic data is not always readily available, this report includes an eGFR for both -Americans and non- Americans. The National Kidney Disease Education Program (NKDEP) does not endorse the use of the MDRD equation for patients that are not between the ages of 18 and 70, are , have extremes of body size, muscle mass, or nutritional status, or are non- or non-. According to the National Kidney Foundation, irrespective of diagnosis, the stage of the disease is based on the level of kidney function: Stage Description GFR(mL/min/1.73 m(2)) 1 Kidney damage with normal or decreased GFR 90 2 Kidney damage with mild decrease in GFR 60-89 3 Moderate decrease in GFR 30-59 4 Severe decrease in GFR 15-29 5 Kidney failure <15 (or dialysis) 75 * SERUM LEVELS OF PSA MEASURED USING THE [employer] ACCESS HYBRITECH IMMUNOASSAY SHOULD NOT BE INTERPRETED ABSOLUTE EVIDENCE OF THE PRESENCE OR ABSENCE OF DISEASE. THE PSA VALUE SHOULD BE USED IN CONJUNCTION WITH OTHER PERTINENT CLINICAL DIAGNOSTIC PROCEDURES. 76 Anion gap measurement may be of limited value in the presence of any alkalosis, especially in a combined acid base disorder. . 77 Note change in reference range as of 06/04/08. The change was based on recommendations from the [place] [employer]. 78 A metabolite of Naproxen, O-desmethylnaproxen, has been shown to interfere with the Jendrassik-Premont method for measuring total bilirubin. Samples from patients who have taken Naproxen have shown spurious elevation in total bilirubin levels. 79 Because ethnic data is not always readily available, this report includes an eGFR for both -Americans and non- Americans. The National Kidney Disease Education Program (NKDEP) does not endorse the use of the MDRD equation for patients that are not between the ages of 18 and 70, are , have extremes of body size, muscle mass, or nutritional status, or are non- or non-. According to the National Kidney Foundation, irrespective of diagnosis, the stage of the disease is based on the level of kidney function: Stage Description GFR(mL/min/1.73 m(2)) 1 Kidney damage with normal or decreased GFR 90 2 Kidney damage with mild decrease in GFR 60-89 3 Moderate decrease in GFR 30-59 4 Severe decrease in GFR 15-29 5 Kidney failure <15 (or dialysis) 80 CORRECTED RESULT! WRONG RESULT WAS 0 81 CBC and smear reviewed. Inverted PMN/lymph ratio noted. No blasts seen. REVIEWED BY JERONIMO SANTOS MD 82 Anion gap measurement may be of limited value in the presence of any alkalosis, especially in a combined acid base disorder. . 83 Note change in reference range as of 06/04/08. The change was based on recommendations from the [place] [employer]. 84 Please note change in reference range effective 08 . 85 CHOLESTEROL INTERPRETATION: Desirable: Less than 200 MG/DL Borderline-High Risk: 200-239 MG/DL High-Risk: 240 MG/DL and over 86 HDL INTERPRETATION: Undesirable: High Risk: Less than 40 MG/DL Desirable: Low Risk: Greater than 60 MG/DL 87 LDL INTERPRETATION: Low Risk Optimal Level: LDL Less than 100 MG/DL Near or Above Optimal: LDL 100-129 MG/DL Borderline High Risk: LDL 130-159 MG/DL High Risk: LDL 160-189 MG/DL Very High Risk: LDL Greater than 189 MG/DL 88 CHOLESTEROL INTERPRETATION: Desirable: Less than 200 MG/DL Borderline-High Risk: 200-239 MG/DL High-Risk: 240 MG/DL and over 89 HDL INTERPRETATION: Undesirable: High Risk: Less than 40 MG/DL Desirable: Low Risk: Greater than 60 MG/DL 90 LDL INTERPRETATION: Low Risk Optimal Level: LDL Less than 100 MG/DL Near or Above Optimal: LDL 100-129 MG/DL Borderline High Risk: LDL 130-159 MG/DL High Risk: LDL 160-189 MG/DL Very High Risk: LDL Greater than 189 MG/DL 91 Anion gap measurement may be of limited value in the presence of any alkalosis, especially in a combined acid base disorder. . 92 Please note change in reference range effective 08 . 93 * SERUM LEVELS OF PSA MEASURED USING THE [email or web address] ACCESS HYBRITECH IMMUNOASSAY SHOULD NOT BE INTERPRETED ABSOLUTE EVIDENCE OF THE PRESENCE OR ABSENCE OF DISEASE. THE PSA VALUE SHOULD BE USED IN CONJUNCTION WITH OTHER PERTINENT CLINICAL DIAGNOSTIC PROCEDURES. 94 * SERUM LEVELS OF PSA MEASURED USING THE [employer] ACCESS HYBRITECH IMMUNOASSAY SHOULD NOT BE INTERPRETED ABSOLUTE EVIDENCE OF THE PRESENCE OR ABSENCE OF DISEASE. THE PSA VALUE SHOULD BE USED IN CONJUNCTION WITH OTHER PERTINENT CLINICAL DIAGNOSTIC PROCEDURES. 95 Anion gap measurement may be of limited value in the presence of any alkalosis, especially in a combined acid base disorder. . 96 Classification: Desirable . 97 Classification: Low . 98 CALCULATED LDL APPROXIMATES THE VALUE OF A DIRECT LDL MEASUREMENT. Classification: Near or above optimal . 99 * SERUM LEVELS OF PSA MEASURED USING THE [email or web address] ACCESS HYBRITECH IMMUNOASSAY SHOULD NOT BE INTERPRETED ABSOLUTE EVIDENCE OF THE PRESENCE OR ABSENCE OF DISEASE. THE PSA VALUE SHOULD BE USED IN CONJUNCTION WITH OTHER PERTINENT CLINICAL DIAGNOSTIC PROCEDURES. Procedures Date CPT Code Description Status Comment 01/05/2017 93411 Remove Impact Cerumen Requiring Completed Instrument, Unilateral 07/19/2016 45166 Biopsy Skin Lesion Single Completed 02/21/2016 73357 Electrocardiogram Complete Completed 07/12/2012 07564 Remove Impact Cerumen Requiring Completed Instrument, Unilateral 05/02/2012 50625 Remove Impact Cerumen Requiring Completed Instrument, Unilateral 04/27/2011 51131 Remove Impact Cerumen Requiring Completed Instrument, Unilateral 04/19/2011 40758 Remove Impact Cerumen Requiring Completed Instrument, Unilateral 04/12/2011 35744 Remove Impact Cerumen Requiring Completed Instrument, Unilateral 07/01/2007 38226 Remove Impact Cerumen Requiring Completed Instrument, Unilateral 09/14/2006 Colonoscopy Completed Document: 09/14/06 - DR Mejia update in [address] mejia recommends no repeat colonoscopy unless symptoms require it Encounters Type Date Location Provider CPT E/M Dx Office Visit 04/23/2018 1:40p Main Office Tristian Marks 30590 N40.1 A41.81 E03.9 I10 Office Visit 02/12/2017 1:45p Main Office Elliot Rivera D.O. 98029 J30.9 Office Visit 01/09/2017 9:45a Main Office Elliot Rivera D.O. 95866 K40.30 Office Visit 01/05/2017 1:30p Main Office Elliot Rivera D.O. 50388 H61.22 J30.9 Office Visit 12/19/2016 1:30p Main Office Elliot Rivera D.O. 41435 L40.0 I10 Office Visit 07/28/2016 2:30p Main Office Elliot Rivera D.O. 90202 D18.01 Office Visit 05/30/2016 9:45a Main Office Elliot Rivera D.ORashmi 02888 I10 L40.0 R01.1 Office Visit 03/30/2016 11:45a Main Office Elliot Rivera D.O. 32285 E03.9 G40.89 R01.1 Office Visit 03/16/2016 1:30p Main Office Elliot Rivera D.O. 60633 R60.1 E03.9 G51.0 I70.0 Office Visit 02/21/2016 2:30p Main Office Elliot Rivera D.O. 64507 K40.90 I70.0 G51.0 G40.89 E03.9 R94.31 Office Visit 01/24/2016 4:45p Main Office Elliot Rivera D.O. 85489 G40.89 Office Visit 11/05/2015 1:45p Main Office Max Whitlock M.D. 35901 J20.9 Office Visit 10/01/2015 4:15p Main Office Max Whitlock M.D. 16463 J06.9 Office Visit 08/18/2015 2:45p Main Office Elliot Rivera D.ORashmi 49609 S97.109A J06.9 W22.8xxA Office Visit 03/15/2015 11:15a Main Office Elliot Rivera D.ORashmi 08136 440.0 603.9 553.20 Office Visit 08/14/2014 10:15a Main Office Elliot Rivera D.ORashmi 07380 351.0 375.15 Office Visit 03/16/2014 12:55p Main Office Elliot Rivera D.ORashmi 92070 564.00 318.2 783.21 Office Visit 12/29/2013 9:30a Main Office Elliot Rivera D.O. 39730 110.4 Office Visit 07/28/2013 1:30p Main Office Liang Banuelos M.D. 22678 372.72 v07.2 v04.81 Office Visit 06/09/2013 10:45a Main Office Max Whitlock M.D. 61168 477.0 600.00 564.00 696.1 244.9 318.2 V70.0 Office Visit 03/13/2013 10:45a Main Office Max Whitlock M.D. 09155 550.90 782.3 318.2 477.0 244.9 600.00 Office Visit 03/07/2013 11:00a Main Office Max Whitlock M.D. 27890 782.3 Office Visit 07/30/2012 3:20p Main Office Tristian Marks 20538 696.8 Office Visit 07/12/2012 11:15a Main Office Max Whitlock M.D. 03863 380.4 684 V65.49 v04.81 v07.2 Office Visit 06/07/2012 10:45a Main Office Max Whitlock M.D. 86034 V77.91 244.9 564.00 477.0 318.2 V70.0 V76.51 Office Visit 05/02/2012 10:20a Main Office Tristian Marks 21120 380.4 318.2 V41.2 Office Visit 04/05/2012 10:20a Main Office Tristian Marks 16108 380.4 Office Visit 03/21/2012 1:45p Main Office Max Whitlock M.D. 26730 892.0 707.00 Office Visit 07/04/2011 12:55p Main Office Max Whitlock M.D. 02883 784.7 380.4 V72.83 Office Visit 06/13/2011 4:30p Main Office Max Whitlock M.D. 24940 681.00 Office Visit 06/06/2011 2:45p Main Office Max Whitlock M.D. 01202 244.9 696.1 564.00 477.0 318.2 V65.49 V70.0 Office Visit 05/01/2011 4:20p Main Office Tristian Marks 71749 682.8 Office Visit 03/09/2011 2:00p Main Office Max Whitlock M.D. 06732 780.79 244.9 784.7 696.1 Office Visit 08/04/2010 4:20p Main Office Tristian Marks 29560 V04.81 681.02 Office Visit 05/20/2010 10:15a Main Office Max Whitlock M.D. 35544 244.9 564.00 477.0 696.1 600.00 318.2 V70.0 V76.51 V76.44 Office Visit 04/19/2009 1:30p Main Office Max Whitlock M.D. 79418 244.9 564.00 477.0 696.1 600.00 318.2 Office Visit 11/23/2008 1:10p Main Office Max Whitlock M.D. 26809 920 782.1 Office Visit 04/09/2008 9:05a Main Office Max Whitlock M.D. 54497 244.9 272.4 564.00 477.0 696.1 600.00 318.2 V76.51 V76.44 V70.0 Office Visit 07/01/2007 3:00p Main Office Max Whitlock M.D. 90490 380.4 564.00 564.0 Office Visit 04/08/2007 12:55p Main Office Max Whitlock M.D. 01105 244.9 477.0 696.1 600.00 564.00 564.0 V76.44 318.2 V76.51 V70.0 Office Visit 06/19/2006 5:00p Main Office Max Whitlock M.D. 77138 372.03 Office Visit 03/06/2006 2:30p Main Office Max Whitlock M.D. 14537 244.9 696.1 477.0 600.00 600.0 796.4 318.2 V70.0 V76.51 564.0 V07.2 V03.82 Office Visit 02/23/2005 3:00p Main Office bridgett 54481 460 Office Visit 02/10/2004 2:30p Main Office Max Whitlock M.D. 98974 244.9 V06.5 318.2 600.00 600.0 696.1 477.0 Office Visit 09/29/2003 5:00p Main Office Max Whitlock M.D. 95381 461.9 Plan of Care Future Appointment(s):06/21/2018 9:15 am - Elliot Rivera D.O. at [facility]/30/2018 - Liang Banuelos M.D.R53.83 Other fatigueComments:Lethargy and anorexia ongoing a few days in a non communicative elderly man who was recently hospitalized w/ urosepsis and who has no focal Sxs or exam findings. Cause NYD. Will screen for UTI. His urine dip shows [place] blood and (+) nitrites and on micro there are 5-10 WBCs. It is too late this [place] to get urine to for a C&S. Will therefore do a urine Cx in house. If in house Cx is (+) will need send out for C&S. If Urine Cx (-) will get BTs done. This plan was relayed to his staff.RTO prn if increasing Sxs.R63.0 AnorexiaNew Orders:Ua w / micro, inhouseUrine Culture, hwhxlnlI89.81 Sepsis due to Enterococcus
--- OUTSIDE RECORDS SUMMARY | 2018-05-18 10:25 | XMS REPORT ---
:1935 External Reference #:[id number] Author Organization [facility] Address [address] [place] [address] Phone [phone] Care Team Providers Name Role Phone HCP given Primary Care Physician Unavailable Payers Type Date Identification Numbers Payment Provider Subscriber Medicare Primary Policy Number: [id number] [facility] Leyla Carranza Services PayID: [id number] [facility] [address] Policy Number: [id number] Medicaid Leyla Carranza Group Name: [id number] [address] [facility] PayID: [id number] [place] [address] Problems Date Description Provider Status Onset: 02/10/2004 [...] Smoke-Free Home is smoke-free General Resident of [facility] Cigarette Use Denies Cigarette Use Cigarette Use 07/04/2011 Tobacco Of Any Kind Denies Use ETOH Use Denies alcohol use Smoking Non Smoker / No Tobacco Exercise Type/Frequency Exercises sporadically Allergies, Adverse Reactions, Alerts Date Description Reaction Status Severity Comments 03/02/2005 Augmentin REACTION UNKNOWN WAS ON FILE ON ADM active TO [facility] Medications Medication Date Status Form Strength Qnty [...] 03/15 Active Solution 0.65% 44ml instill chak, [place] into each Elliot, nostril D.O. daily Cerave [...] 100MG 09/12 Active 120un Take 2 K59.01 [facility], Cap its Capsules By Elliot, Mouth Twice D.O. A Day (Stool Softening) Artificial 08/10 Active Solution 1.4% 45ml 1 drop both Tears eyes as Elliot, needed for D.O. dry eyes Clonazepam 06/15 Active Tablets 0.25mg 1 in the Dispers morning crushed Chlorpromazine 06/15 Active Tablets 25mg 1 by mouth Endo, every Leyla, evening PhD Carave 06/15 Active QS apply t [facility], Moisturizing legs & body Elliot, Cream 2xdaily [...] lesions bid prn dryness, itching or redness Naches Saline 06/13 Active Gel 14.1u Apply [facility], Nasal nits Inside Elliot, Nostrils D.O. [...] 08/13 Active Ointment 0.1% 454un apply twice [facility], Acet its daily for 2 Elliot, weeks D.O. alternating with diprolene ,not to face or folds (refer to rx#[id number] ) Peridex 0.12% 06/04 Active 473un Swab 1 [place], Oral Rinse its Teaspoon On Elliot, Gums Twice D.O. Daily For Oral Care Nasal Moist Gel 02/02 Active Gel QS apply to [facility] inside of Elliot, nose 2 x a D.O. day # 90 day supply. Tar Soaks 02/19 Active twice a L40.0 Tangoren week MD Nichole Diprolene 02/19 Active Ointment 0.05% 45uni Apply To L40.0 [facility] A[facility] Elliot, Areas Twice D.O. Daily Times 2 Weeks Alternating With Triamcinolo ne, Not To Face Or Folds Vectical 02/19 Active Ointment 3mcg/GM 100un Apply To L40.0 [facility], its Legs Twice Elliot, Daily After D.O. [...] 60tab give 2 s tablets po A. [id number] prn Bridgett, for pain or M.D. fever >101.0f Aspirin Low 11/28 Active Chewtabs 81mg 15uni Take 1 [facility], ts Tablet By Elliot, Mouth Every D.O. Other Day (Prevent Heart Disease) Zincon Dandruff Active Shampoo 1% QS 3 x a week [facility], Elliot, D.O. [place] 0.2% Active 45uni Apply To [facility], Cre 15GM /0000 ts Facial Elliot, Lesions D.O. Twice Daily as Needed Dryness, Itching Or Redness. Must Be Applied By Amap Notify RN When Used, Dheeraj N Tarsum Active Shampoo 10-5% 472un 2 Capfuls [facility] its AT [place] Elliot, Time Every D.O. Day ([place]ar [place]) For Washing Body Atorvastatin 04/18 Hx Tablets 40mg 90tab 1 by mouth E78.4 [facility], s every day Elliot, - D.O. 04/19 Linezolid 04/18 Hx Tablets 600mg 1 by mouth every 12 - hours 04/22 Flonase Allergy 01/05 Hx Suspension 50mcg/Act 47.40 2 sprays J30.9 [facility], 0ml each Elliot, - nostril D.O. 02/04 Tylenol Extra 01/05 Hx Tablets 500mg 56tab take two J30.9 [facility], s tablets by Elliot, - mouth 2 D.O. 01/19 times a day for 2 weeks scheduled Miralax 07/21 Hx Powder 3350NF 510un 1 capful in [facility] its 8 oz. of Elliot, - water by D.O. 03/21 mouth day Hold for > 3 stools/day Dandruff 06/15 Hx Shampoo 3x/wk Unknown Shampoo /2015 - 04/22 Deep Sea Nasal 06/15 Hx Solution instill Unknown into each - nostril 03/15 Claritin 05/29 Hx Capsules 10mg 1 by mouth every day - 10/25 Claritin 10MG 11/29 Hx 28uni Take 1 [facility], ts Tablet By Elliot, - Mouth Once [...] - D.O. 02/22 Polytrim 09/03 Hx Solution 00524-8.1 10uni Instill 1 Unit/ML-% ts Drop In [...] times/day D.O. 08/18 Nystatin 08/03 Hx Cream [id number] 30uni Apply 1 carmen t/GM ts Application Elliot, - Topically D.O. 02/12 To Affected Area On Both Buttocks 2 Times Per Day For Rash Nystatin 12/29 Hx Powder [id number] 60uni Dust Powder 110.4 Joycecobrittani t/GM ts [...] Max Vaccine one dose to A. - latcher only , 07/06.D. Syringe 1 cc 06/06 Hx 1unit V65.49 Max With 25GA 1 10/16 s A. In Needle - Bridgett, 07/06.D. Deep Sea Nasal 06/05 Hx Solution 0.65% 1bott 1 spray per Miguel le nostril Elilot, - daily D.O. 06/13 Cephalexin 04/28 Hx [...] for 2-4wks Saline 0.65% 08/23 Hx Nasal [place] 44uni [place] 1 ts [place] In A. - Each Bridgett, 02/02 Nostril M.D. Once A Day Bactrim DS 08/04 Hx Tablets 800-160mg 14tab 1 po bid x 681.02 Lakisha, s 7 days Lance Tavera M.DRashmi 08/11 Colace 07/13 Hx Capsules 100mg 120ca 2 [facility] by Elliot, - mouth [...] tid prn Max A. 04/09/2008 Yohannes Whitlock Salome Bismuth 11/28/2005 - Hx 1Bott 30 cc [...] allergy Yohannes Whitlock Flonase 02/03/2005 - Hx [place] 50mcg/S 2unit 2 sprays in Max Hatch. [...] QSX1M 1 spray ea 477.0 Max Bragg [place] 02/02/2014 o nostril qd Yohannes Whitlock Flonase [...] po 272.4 Max Bragg Release 08/21/2013 s [facility] Yohannes Whitlock Ferrous Sulfate 12/04/2003 - Hx Tablets 325mg 60tab 1 po bid Max Bragg 04/09/2007 manuelito Whitlock M.D. Doxycycline 09/29/2003 - Hx Capsules 100mg 20cap 1 bid for ten 461.9 Max Bragg Hyclate 01/06/2004 s days Yohannes Whitlock Pentoxifylline 09/28/2003 - Hx Tablets 400mg 90tab 1 po tid 443.9 Max Bragg 04/09/2008 manuelito hWitlock M.D. Aspirin Enteric 09/28/2003 - Hx Tablets 325mg 15tab 1 pill daily Max Bragg Coated 11/28/2005 s in the morning Bridgett with food for M.DRashmi decreasing risk of stroke and heart attacks Docusate Sodium 09/28/2003 - Hx Capsules 100mg 120ca 2 po bid hold Max Bragg 07/13/2010 ps for melita Corral M.D. Claritin - Hx Capsules 10mg 30cap 1 by mouth [facility], 11/29/2015 s every day Arianna Zarate Chlorpromazine - Hx Tablets 25mg 4 daily Unknown HCL 08/13/2014 Hydrocortisone - Hx Cream 1% prn Unknown 06/16/2016 Immunizations CPT Code Status Date Vaccine Lot # [id number] Given 06/20/2017 Influenza Virus Vaccine, Quadrivalent, Split, [id number] Preservative Free 51276 Given 06/16/2016 Influenza Virus Vaccine, Quadrivalent, Split, [id number] Preservative Free 34922 Given 06/14/2015 Zostavax [id number] 08378 Given 06/14/2015 Influenza Virus Vaccine, Quadrivalent, Split, [id number] Preservative Free 78812 Given 06/14/2015 Prevnar 13 [id number] 42493 Given 06/11/2014 Adacel or Boostrix, TDaP [id number] 87253 Given 06/11/2014 Influenza Vaccine Split Virus Preservative Free Im [id number] Use 41458 Given 07/28/2013 Flu, Split Virus 3Yrs [id number] 83372 Given 07/12/2012 Flu, Split Virus 3Yrs [id number] 24058 Given 08/22/2011 Flu, Split Virus 3Yrs [id number] 66619 Given 08/04/2010 Flu, Split Virus 3Yrs [id number] 69778 Given 09/22/2009 Flu, Split Virus 3Yrs [id number] 52160 Given 08/27/2008 Flu, Split Virus 3Yrs [id number] 51676 Given 08/29/2007 Flu, Split Virus 3Yrs [id number] 01897 Given 08/27/2006 Flu, Split Virus 3Yrs [id number] 51749 Given 03/06/2006 Pneumococcal Immunization [id number] 72718 Given 08/12/2004 Flu, Split Virus 3Yrs 92682 Given 02/10/2004 Td Immunization 65119 Given 08/01/2003 Flu, Split Virus 3Yrs Vital Signs Date Vital Result Comment 04/23/2018 BP Systolic 175 mmHg BP Diastolic [...] Test Date Test Result H/L Range Note CBC Auto Diff 04/14/2018 White Blood Count [...] 1.25 High 0.77-1.02 Laboratory test finding 04/14/2018 Partial Thrombo Time 48.6 seconds High 26.0-36.3 PTT Lactic Acid 1.9 mmol/L 0.5-2.0 1 Comp Metabolic Panel 04/14/2018 Sodium 135 mmol/L [...] Egfr Non- 46.3 >60 Egfr 56.1 >60 2 Laboratory test finding 04/14/2018 C Reactive Protein 53.28 mg/L High < 8.01 Troponin-I (TnI) 1.23 ng/mL High <0.04 3 Urinalysis Profile 04/14/2018 Urine Color Yellow Urine Appearance Turbid Urine Specific [place] 1.015 1.010-1.030 Urine pH 7.0 5-9 Urine Urobilinogen Negative Negative Urine Ketones Negative Negative Urine Protein 1+(30 mg/dL) Negative Urine Leukocytes 3+ Negative Urine Blood 1+ Negative Urine Nitrite Negative Negative Urine Bilirubin Negative Negative Urine Glucose Negative Negative Urine White Blood Cell 3+(>20/hpf) Absent Urine Red Blood Cell 3+(>10/hpf) Absent Urine Bacteria Absent Absent Urine Squamous Epithelial Cell Present Absent Laboratory test 04/14/2018 B-Type Natriuretic 30 pg/mL 4 finding Peptide BNP Urine Culture And 04/14/2018 Urine Culture SEE RESULT 5 Sensitivities BELOW Laboratory test 04/14/2018 Blood Culture SEE RESULT 6 finding BELOW Laboratory test 07/23/2017 Vitamin D Total 86.2 ng/mL High 20-50 7, 8 finding 25(Oh) Laboratory test 05/22/2017 Magnesium 2.2 mg/dL 1.9-2.7 9, 10 finding TSH (Thyroid Stim Horm) 2.13 mcIU/mL 0.34-5.60 9, 11 T3 Free 3.10 pg/mL 2.5-3.9 9, 12 Free T4 (Free Thyroxine) 0.96 ng/dL 0.61-1.12 9, 13 Vitamin B12 1420 pg/mL High 180-914 9, 14 Comp Metabolic Panel 05/22/2017 Sodium 139 mmol/L [...] 57.2 >60 9 Egfr 73.5 >60 9, 15 CBC Auto Diff 05/22/2017 White Blood Count [...] Nucleated Red Blood Cells % 0 9 Laboratory test finding 07/19/2016 Surgical Pathology SEE [...] ng/mL High 30-50 17, 23 finding 25(Oh) Laboratory test 03/20/2016 Magnesium 2.0 mg/dL 1.9-2.7 finding TSH (Thyroid Stim Horm) 3.57 ?IU/mL 0.34-5.60 T3 Free 3.00 pg/mL 2.5-3.9 Free T4 (Free Thyroxine) 0.87 ng/dL 0.61-1.12 Vitamin B12 > 1450 pg/mL High 180-914 24 CBC Auto Diff 03/20/2016 White Blood Count [...] Egfr Non- 66.7 >60 Egfr 85.7 >60 25 Laboratory test finding 01/20/2016 Lipase 29 U/L 11.0-82.0 C Reactive Protein 3.00 mg/L < 5.00 26 Comp Metabolic Panel 01/20/2016 Sodium 132 mmol/L Low 133-145 Potassium 4.6 mmol/L 3.5-5.0 Chloride 103 mmol/L 101-111 Co2 Carbon Dioxide 23 mmol/L 22-32 Anion Gap 6 mmol/L 2-11 Creatinine 1.01 mg/dL 0.67-1.17 Calcium 9.5 mg/dL 8.6-10.3 Albumin 3.9 g/dL 3.2-5.2 Alkaline Phosphatase 64 U/L 34-104 Alt 24 U/L 7-52 Ast 32 U/L 13-39 Egfr Non- 71.3 >60 Egfr 91.6 >60 27 Glucose 100 mg/dL 70-100 Blood Urea Nitrogen 18 mg/dL 6-24 BUN/Creatinine Ratio 17.8 8-20 Total Protein 7.1 g/dL 6.4-8.9 Globulin 3.2 g/dL 2-4 Albumin/Globulin Ratio 1.2 1-3 Total Bilirubin 0.40 mg/dL 0.2-1.0 Laboratory test finding 01/20/2016 Troponin-I (TnI) 0.01 ng/mL <0.03 28 Urinalysis Profile 01/20/2016 Urine Color Yellow Urine Appearance Clear Urine Specific [place] 1.017 1.010-1.030 Urine pH 6.0 5-9 Urine Urobilinogen Negative Negative Urine Ketones Negative Negative Urine Protein Negative Negative Urine Leukocytes Negative Negative Urine Blood Negative Negative Urine Nitrite Negative Negative Urine Bilirubin Negative Negative Urine Glucose Negative Negative CBC Auto Diff 01/20/2016 White Blood Count [...] um3 7.4-10.4 Abs Neutrophils 4.5 10^3/uL 1.5-7.7 29 Abs Lymphocytes 1.7 10^3/uL 1.0-4.8 30 Abs Monocytes 0.7 10^3/uL 0-0.8 31 Abs Eosinophils 0.1 10^3/uL 0-0.6 32 Abs Basophils 0 10^3/uL 0-0.2 33 Abs Nucleated RBC 0.06 10^3/uL 34 Granulocyte % 64.5 % 38-83 Lymphocyte % 24.4 % Low 25-47 35 Monocyte % 9.4 % High 1-9 Eosinophil % 1.0 % 0-6 Basophil % 0.7 % 0-2 Nucleated Red Blood Cells % 0.9 Quantiferon Gold TB 06/14/2015 M tuberculosis by [...] Blood Cells % 0.3 Comp Metabolic Panel 03/08/2015 Sodium 134 mmol/L [...] Egfr Non- 60.9 >60 Egfr 78.3 >60 38 Laboratory test finding 03/08/2015 Lipase 20 U/L 11.0-82.0 C Reactive Protein 2.57 mg/L < 5.00 39 Lactic Acid 1.7 mmol/L 0.5-2.2 Urinalysis Profile 03/08/2015 Urine Color Yellow Urine Appearance Clear Urine Specific [place] 1.011 1.010-1.030 Urine pH 6.0 5-9 Urine [...] 44 LDL Cholesterol 84 mg/dL 41, 45 Comp Metabolic Panel 08/13/2014 Sodium 135 mmol/L [...] Egfr Non- 57.1 >60 Egfr 73.4 >60 46 Laboratory test finding 08/13/2014 Erythrocyte Sed Rate 5 mm/Hr 0-40 CBC Auto Diff 08/13/2014 White Blood Count [...] C Reactive Protein 1.50 mg/L < 5.00 47 Laboratory test finding 06/20/2014 Free T3 2.80 [...] Non- 58.9 >60 Egfr 75.7 >60 57 Liver Function Panel 08/16/2012 Direct Bilirubin 0.1 mg/dL 0.1-0.5 Indirect Bilirubin 0.8 mg/dL 0.3-1.0 Lipid Profile (Trig/Chol/HDL) 08/16/2012 Triglycerides 115 mg/dL 40-200 Cholesterol 182 mg/dL Less than 200 58 HDL Cholesterol 37 mg/dL Low 40-60 59 Cholesterol/HDL Ratio 4.9 AVERAGE High 1-4.44 LDL Cholesterol 122.0 mg/dL High Less Than 100 Comp Metabolic Panel 08/16/2012 Sodium 138 mmol/L [...] 06/07/2012 Occult Blood - Stool neg x3 Laboratory test finding 02/19/2012 TSH 3.99 MIU/ML 0.34-5.60 Liver Function Panel 02/19/2012 Bilirubin Direct 0.2 mg/dL 0.1-0.5 Indirect Bilirubin 0.7 mg/dL 0.3-1.0 62 Comp Metabolic Panel 02/19/2012 Sodium 137 mmol/L [...] > 60 eGFR 75.9 > 60 65 CBC Auto Diff 02/19/2012 White Blood Count [...] Eosinophils 0 0-0.6 Abs Basophils 0 0-0.2 CBC Auto Diff 03/02/2011 White Blood Count [...] Color YELLOW Yellow Appearance-Urine CLEAR Clear Specific [place]-Ur 1.013 1.010-1.030 Esterase-Urine NEGATIVE Negative Nitrite NEGATIVE Negative [id number] NEGATIVE Negative Protein-Urine NEGATIVE Negative PH-Urine 5.5 [...] Absolute Neutrophil Count 4.5 RBC Morphology NORMAL Comp Metabolic Panel 07/13/2010 Sodium 141 mmol/L 135-145 Potassium 4.1 mmol/L 3.5-5.0 Chloride 107 mmol/L 101-111 Co2 (Carbon Dioxide) 25.0 mmol/L 22-32 Anion Gap 9.0 mmol/L 2-11 75 Glucose 87 mg/dL 70-100 76 BUN 21 mg/dL 6-24 Creatinine 1.00 mg/dL 0.50-1.40 One Over Creatinine 1.00 BUN/Creatinine Ratio 21.0 High 8-20 Calcium 8.8 mg/dL 8.1-9.9 Total Protein 6.6 GM/DL 6.2-8.1 Albumin 3.8 GM/DL 3.2-5.2 Globulin 2.8 GM/DL 2-4 Albumin/Globulin Ratio 1.4 1-3 Bilirubin Total 1.1 mg/dL 0.4-1.5 77 Alkaline Phosphatase 59 U/L 39-117 Alt (SGPT) 23 U/L 17-63 Ast (Sgot) 32 U/L 12-42 eGFR Non- 77.8 > 60 eGFR 94.2 > 60 78 Laboratory test finding 07/13/2010 PSA Screening 1.76 NG/ML 0-4 79 CBC With Electronic Diff 07/13/2010 White Blood [...] Eosinophils 0 0-0.6 Abs Basophils 0 0-0.2 Laboratory test finding 02/24/2009 Hepatitis C Antibody [...] 4.6-6.2 Redcell Distribution WDTH 13 % 10.5-15 CBC With Manual Diff 07/11/2006 White Blood Count 11.9 CUMM High 4.8-10.8 Hematocrit 47 % 42-52 Hemoglobin 16.2 g/dL 14.0-18.0 Mean Corpuscular HGB Cone 34 g/dL 32-36 Mean Corpuscular Hemoglob 30 pg Mean Corpuscular Volume 88 um3 80-94 Mean Platelet Volume 8.7 um3 7.4-10.4 Platelet Count 238 CUMM 150-450 Polysegmented Neutrophil 42 % 38-83 Red Cell Count 5.34 CUMM 4.6-6.2 Redcell Distribution WDTH 14 % 10.5-15 Absolute Neutrophil Count 5.1 Atypical Lymph 1 % 0-6 Anisocytosis SLIGHT Band Neutrophil 1 % 0-8 Eosenophil 7 % High 0-6 Lymphocyte 42 % 5-47 Monocyte 7 % 0-13 Iron & Iron Binding Capacity 07/11/2006 Iron Total 51 g/dL 45-182 Unsaturated Iron Binding 317 g/dL Total Iron Binding Capacity 368 g/dL 250-450 % Iron Saturation 14 % Low 15-55 Transferrin 263.1 Laboratory test finding 07/11/2006 Ferritin 23 NG/ML Low 24-336 Laboratory test finding 05/02/2006 TSH 4.63 MIU/ML 0.34-5.60 CBC With Electronic Diff 03/06/2006 [...] 4.6-6.2 Redcell Distribution WDTH 15 % 10.5-15 Laboratory test finding 03/06/2006 TSH 3.82 MIU/ML 0.34-5.60 CBC W/ Manual Diff 01/08/2006 White Blood Count 13.1 High 4.8-10.8 RBC Red Blood Count 5.56 Hemoglobin 16.5 Hematocrit 48 MCV (Corpuscular Volume) 87 MCH (Corpuscular Hemoglobin) 30 MCHC (Corpuscular Hemog Conc) 34 RDW 14 Platelet Count 253 MPV 9.0 Bands 5 Lymphocytes 42 Monocytes 2 Eosinophils 4 Absolute Neutrophils 6.8 CBC With Electronic Diff 03/24/2005 White Blood [...] Density Lipoprotein 115 Triglycerides 160 CMP Panel 03/24/2005 Albumin 3.5 Alt - [...] 4 Lymphocytes 16 Monocytes 9 Eosinophils 1 CMP Panel 01/13/2005 Albumin 3.6 Alt - SGPT 23 Calcium 9.5 Carbon Dioxide 30.0 Chloride 101 Creatinine 1.1 Glucose Serum 95 Alkaline Phosphatase 89 Potassium 4.9 Protien Total 6.5 Sodium 136 Ast - Sgot 31 BUN - Urea Nitrogen 17 1 [facility] Severe Sepsis and Septic Shock Management Bundle Measure requires all lactic acids initially measuring >2.0 mmol/L be repeated. 2 Because ethnic data is not always readily [...] 15-29 5 Kidney failure <15 (or dialysis) 3 Result TnIDx:1.23 Called to [id number] at: 12:57:03 by:[id number] Read back by: [id number] 4 >100 to <200 pg/mL: likely compensated congestive heart failure (CHF) 200 to 400 pg/mL: likely moderate CHF >400 pg/mL: likely moderate to severe CHF 5 SEE RESULT BELOW Name: LEYLA CARRANZA : [address]: Ashly Jeter MD Acct: [id number] Unit: [id number] AGE: 83 Location: [place] [address] Re04/14/18 SEX: M Status: ADM IN SPEC: [id number] LAVERN: 04/14/[address]: Dain Bernstein MD REQ: [id number] RECD: 04/14/18 STATUS: SHAHEED SOLANO DR: Elliot Rivera DO _ SOURCE: URINE SPDESC: ORDERED: Urine Culture Procedure Result Reported Site Urine Culture Final 04/16/18- 0839 ML Organism 1 ENTEROCOCCUS FAECALIS [place] Count 50-75,000 (Many) CFU/ML 1. ENTEROCOCCUS FAECALIS M.I.C. RX --------- ------ Ampicillin <=2 S Penicillin 2 S Ciprofloxacin 1 S Gentamicin High Level S Levofloxacin 1 S Linezolid 2 S Nitrofurantoin <=16 S * Quinupristin/Dalfopristin R * Streptomycin High Level S Tetracycline >=16 R Tigecycline <=0.12 S Vancomycin 2 S Imipenem-Deduced S * Ampicillin/Sulbactam-Deduced S * These antibiotics are not available in the [facility] Formulary Contact the Microbiology Department for any additional antibiotic reporting. * - Main Lab . END OF REPORT DEPARTMENT OF PATHOLOGY, [address] [place] [address] Jeronimo Santso M.D. Director [facility] # [id number] 6 SEE RESULT BELOW Name: LEYLA CARRANZA : [address]: Ash Mcdermott MD Acct: [id number] Unit: [id number] AGE: 83 Location: [place] [address] Re04/14/18 Dis: 04/18/18 SEX: M Status: DIS IN SPEC: [id number] LAVERN: 04/14/18-[address] [facility] [address]: Dain Bernstein MD REQ: [id number] RECD: 04/14/18-1213 STATUS: SHAHEED SOLANO DR: Elliot Rivera DO _ SOURCE: BLOOD,VENO SPDESC: ORDERED: Blood Cult Procedure Result Reported Site Aerobic Culture Bottle Final 04/19/18- 1215 ML No Growth Day 5 Anaerobic Culture Bottle Final 04/19/18- 1215 ML No Growth Day 5 * ML - Main Lab . END OF REPORT DEPARTMENT OF PATHOLOGY, [address] [place] [address] Jeronimo Santos M.D. Director [facility] # [id number] 7 [id number] 14 Normal Range 180 to 914 Indeterminate Range 145 to 180 Deficient Range <145 15 Because ethnic data is not always readily [...] 15-29 5 Kidney failure <15 (or dialysis) 16 SEE RESULT BELOW Name: LEYLA CARRANZA : [address]: Elliot Rivera DO Acct: [id number] Unit: [id number] AGE: 81 Location: [facility] Re07/19/16 SEX: M Status: REG REF SPEC: [id number] LAVERN: 07/19/16-[address] [facility] [address]: Elliot Rivera DO REQ: [id number] RECD: 07/20/161088 STATUS: SOUT _ ORDERED: LEVEL IV COMMENTS: [id number] FINAL DIAGNOSIS Skin, left ankle, biopsy: -- [...] performed at Main Lab DEPARTMENT OF PATHOLOGY, [address] [place] [address] Jeronimo Santos M.D. Director [facility] # [id number] 17 [id number] 18 Desirable <150 Borderline high 150-199 High [...] 5 Kidney failure <15 (or dialysis) 23 [id number] Normal Range 180 to 914 Indeterminate Range 145 to 180 Deficient Range <145 25 Because ethnic data is not always readily [...] 15-29 5 Kidney failure <15 (or dialysis) 26 Acute inflammation: >10.00 27 Because ethnic data is not always readily [...] 15-29 5 Kidney failure <15 (or dialysis) 28 Reference Range and Interpretation: TnI (ng/mL) Interpretation Less Than 0.03 ng/mL Not supportive of diagnosis of NV 0.03 - 0.50 ng/mL Indeterminate: suggest serial studies if clinically indicated. Greater than 0.5 ng/mL Consistent with diagnosis of NV 29 Consistent with previous results on 08/16/15. 30 Consistent with previous results on 08/16/15. 31 Consistent with previous results on 08/16/15. 32 Consistent with previous results on 08/16/15. 33 Consistent with previous results on 08/16/15. 34 --- 01/20/16 1352 --- ABS NRBC previously reported as: 0.06 10 3/ul Consistent with previous results on 08/16/15. 35 Consistent with previous results on 08/16/15. 36 ADDITIONAL INFORMATION This is a qualitative [...] when interpreting QuantiFERON-TB results. Test Performed by: [place] [address] Functional Manager: Max Hoffman II, M.D., Ph.D. 37 Because [...] 5 Kidney failure <15 (or dialysis) 38 Because ethnic data is not always readily [...] 15-29 5 Kidney failure <15 (or dialysis) 39 Acute inflammation: >10.00 40 Because ethnic data is not always [...] 130-159 High 160-189 Very High >189 46 Because ethnic data is not always readily [...] 15-29 5 Kidney failure <15 (or dialysis) 47 Acute inflammation: >10.00 48 with next lab draw 49 with [...] has been shown to interfere with the [place] method for measuring total bilirubin. Samples from [...] change was based on recommendations from the [employer]. 73 A metabolite of Naproxen, [...] 5 Kidney failure <15 (or dialysis) 75 Anion gap measurement may be of limited value in the presence of any alkalosis, especially in a combined acid base disorder. . 76 Note change in reference range as of 06/04/08. The change was based on recommendations from the [employer]. 77 A metabolite of Naproxen, O-desmethylnaproxen, has been shown to interfere with the [place]rass[place] method for measuring total bilirubin. Samples from patients who have taken Naproxen have shown spurious elevation in total bilirubin levels. 78 Because ethnic data is not always readily [...] 15-29 5 Kidney failure <15 (or dialysis) 79 * SERUM LEVELS OF PSA MEASURED USING THE ERLINDA StartBull ACCESS HYBRITECH IMMUNOASSAY SHOULD NOT BE INTERPRETED ABSOLUTE EVIDENCE OF THE PRESENCE OR ABSENCE OF DISEASE. THE PSA VALUE SHOULD BE USED IN CONJUNCTION WITH OTHER PERTINENT CLINICAL DIAGNOSTIC PROCEDURES. 80 CORRECTED RESULT! WRONG RESULT WAS 0 [...] change was based on recommendations from the [place] [employer]. 84 Please note change in [...] SERUM LEVELS OF PSA MEASURED USING THE D-Sight ACCESS HYBRITECH IMMUNOASSAY SHOULD NOT BE INTERPRETED ABSOLUTE EVIDENCE OF THE PRESENCE OR ABSENCE OF DISEASE. THE PSA VALUE SHOULD BE USED IN CONJUNCTION WITH OTHER PERTINENT CLINICAL DIAGNOSTIC PROCEDURES. 94 * SERUM LEVELS OF PSA MEASURED USING THE ERLINDA StartBull ACCESS HYBRITECH IMMUNOASSAY SHOULD NOT BE INTERPRETED [...] Date CPT Code Description Status Comment 01/05/2017 09408 Remove Impact Cerumen Requiring Completed Instrument, Unilateral 07/19/2016 83366 Biopsy Skin Lesion Single Completed 02/21/2016 82138 Electrocardiogram Complete Completed 07/12/2012 94019 Remove Impact Cerumen Requiring Completed Instrument, Unilateral 05/02/2012 37170 Remove Impact Cerumen Requiring Completed Instrument, Unilateral 04/27/2011 88826 Remove Impact Cerumen Requiring Completed Instrument, Unilateral 04/19/2011 42382 Remove Impact Cerumen Requiring Completed Instrument, Unilateral 04/12/2011 49377 Remove Impact Cerumen Requiring Completed Instrument, Unilateral 07/01/2007 53740 Remove Impact Cerumen Requiring Completed Instrument, Unilateral 09/14/2006 Colonoscopy Completed Document: 09/14/06 - DR Mejia update in [address] mejia recommends no repeat colonoscopy unless symptoms require it Encounters Type Date Location Provider CPT E/M Dx Office Visit 04/23/2018 1:40p Main Office Tristian Marks 63193 N40.1 A41.81 E03.9 I10 Office Visit 02/12/2017 1:45p Main Office Elliot Rivera D.O. 00791 J30.9 Office Visit 01/09/2017 9:45a Main Office Elliot Rivera D.O. 62871 K40.30 Office Visit 01/05/2017 1:30p Main Office Elliot Rivera D.O. 32710 H61.22 J30.9 Office Visit 12/19/2016 1:30p Main Office Elliot Rivera D.O. 86095 L40.0 I10 Office Visit 07/28/2016 2:30p Main Office Elliot Rivera D.O. 92603 D18.01 Office Visit 05/30/2016 9:45a Main Office Elliot Rivera D.O. 25913 I10 L40.0 R01.1 Office Visit 03/30/2016 11:45a Main Office Elliot Rivera D.O. 80258 E03.9 G40.89 R01.1 Office Visit 03/16/2016 1:30p Main Office Elliot Rivera D.O. 20073 R60.1 E03.9 G51.0 I70.0 Office Visit 02/21/2016 2:30p Main Office Elliot Rivera D.O. 92635 K40.90 I70.0 G51.0 G40.89 E03.9 R94.31 Office Visit 01/24/2016 4:45p Main Office Elliot Rivera D.O. 42313 G40.89 Office Visit 11/05/2015 1:45p Main Office Max Whitlock M.D. 11969 J20.9 Office Visit 10/01/2015 4:15p Main Office Max Whitlock M.D. 62140 J06.9 Office Visit 08/18/2015 2:45p Main Office Elliot Rivera D.O. 75830 S97.109A J06.9 W22.8xxA Office Visit 03/15/2015 11:15a Main Office Elliot Rivera D.O. 45567 440.0 603.9 553.20 Office Visit 08/14/2014 10:15a Main Office Elliot Rivera D.O. 67189 351.0 375.15 Office Visit 03/16/2014 12:55p Main Office Elliot Rivera D.O. 16511 564.00 318.2 783.21 Office Visit 12/29/2013 9:30a Main Office Elliot Rivera D.O. 57660 110.4 Office Visit 07/28/2013 1:30p Main Office Liang Banuelos M.D. 95767 372.72 v07.2 v04.81 Office Visit 06/09/2013 10:45a Main Office Max Whitlock M.D. 91476 477.0 600.00 564.00 696.1 244.9 318.2 V70.0 Office Visit 03/13/2013 10:45a Main Office Max Whitlock M.D. 01585 550.90 782.3 318.2 477.0 244.9 600.00 Office Visit 03/07/2013 11:00a Main Office Max Whitlock M.D. 68812 782.3 Office Visit 07/30/2012 3:20p Main Office Tristian Marks 34918 696.8 Office Visit 07/12/2012 11:15a Main Office Max Whitlock M.D. 73475 380.4 684 V65.49 v04.81 v07.2 Office Visit 06/07/2012 10:45a Main Office Max Whitlock M.D. 47596 V77.91 244.9 564.00 477.0 318.2 V70.0 V76.51 Office Visit 05/02/2012 10:20a Main Office Tristian Marks 14549 380.4 318.2 V41.2 Office Visit 04/05/2012 10:20a Main Office Tristian Marks 92762 380.4 Office Visit 03/21/2012 1:45p Main Office Max Whitlock M.D. 09091 892.0 707.00 Office Visit 07/04/2011 12:55p Main Office Max Whitlock M.D. 72236 784.7 380.4 V72.83 Office Visit 06/13/2011 4:30p Main Office Max Whitlock M.D. 12957 681.00 Office Visit 06/06/2011 2:45p Main Office Max Whitlock M.D. 92180 244.9 696.1 564.00 477.0 318.2 V65.49 V70.0 Office Visit 05/01/2011 4:20p Main Office Tristian Marks 37596 682.8 Office Visit 03/09/2011 2:00p Main Office Max Whitlock M.D. 11281 780.79 244.9 784.7 696.1 Office Visit 08/04/2010 4:20p Main Office Tristian Marks 98584 V04.81 681.02 Office Visit 05/20/2010 10:15a Main Office Max Whitlock M.D. 25671 244.9 564.00 477.0 696.1 600.00 318.2 V70.0 V76.51 V76.44 Office Visit 04/19/2009 1:30p Main Office Max Whitlock M.D. 44574 244.9 564.00 477.0 696.1 600.00 318.2 Office Visit 11/23/2008 1:10p Main Office Max Whitlock M.D. 58028 920 782.1 Office Visit 04/09/2008 9:05a Main Office Max Whitlock M.D. 19958 244.9 272.4 564.00 477.0 696.1 600.00 318.2 V76.51 V76.44 V70.0 Office Visit 07/01/2007 3:00p Main Office Max Whitlock M.D. 15451 380.4 564.00 564.0 Office Visit 04/08/2007 12:55p Main Office Max Whitlock M.D. 09599 244.9 477.0 696.1 600.00 564.00 564.0 V76.44 318.2 V76.51 V70.0 Office Visit 06/19/2006 5:00p Main Office Max Whitlock M.D. 86167 372.03 Office Visit 03/06/2006 2:30p Main Office Max Whitlock M.D. 78032 244.9 696.1 477.0 600.00 600.0 796.4 318.2 V70.0 V76.51 564.0 V07.2 V03.82 Office Visit 02/23/2005 3:00p Main Office bridgett 64931 460 Office Visit 02/10/2004 2:30p Main Office Max Whitlock M.D. 39721 244.9 V06.5 318.2 600.00 600.0 696.1 477.0 Office Visit 09/29/2003 5:00p Main Office Max Whitlock M.D. 62995 461.9 Plan of Care Future Appointment(s):06/21/2018 9:15 am - Elliot Rivera D.O. at Main Vgbzgm2004/23/2018 - Tristian MarksN40.1 Benign prostatic hyperplasia with lower urinary tract sympReferral:Sandoval Davila MD, SaktkybH63.81 Sepsis due to EnterococcusReferral:Sandoval Davila MD, NdframcV50.9 Hypothyroidism, [id number] Essential (primary) hypertensionComments:pt advised to report cp , change in angina , sob etContinue same meds with no change. Comply with diet and exercise. Lose weight and watch salt in diet.
[2018-05-18 10:35] VITALS: BP 114/50
--- NOTE | 2018-05-18 11:18 | UC ---
Complaint Male HPI - HPI Summary HPI Summary: 83-year-old male PMHX intellectual disorder presents to the urgent care accompanied by daughter. Daughter reports her father was hospitalized a month ago and D/C home w/a Tovar catheter in placed. He was tolerating it well for 2 weeks ago, then it was removed by home nurse. Then the urologist so him and placed it back again. This morning patient slept more than unusual and woke up with the Tovar catheter's strap around his Rt leg very tight and couldn' t walk well. She loosen it up and Pt had a mild rash around. Then when she was showering him she noticed a green yellowish discharge in the pull-ups and some coming out of the urethra. Tovar catheter is in place and bag is getting full as normal. She denies fever, chills, SOB, chest pain, abdominal pain, N/V/D. Pt is being managed by Urologist Dr Davila - History of Current Complaint Chief Complaint: UCGU Stated Complaint: PRIVATE Time Seen by Provider: 05/18/18 11:16 Hx Obtained From: Patient - ital, Family/Public Speaker - daughter Onset/Duration: Gradual Onset - green yellowish discahrge from urethra s/p tovar catheter, Lasting Days - 1 day, Worse Since - this morning Timing: Constant Severity Initially: Mild Severity Currently: Mild Pain Intensity: 0 Pain Scale Used: 0-10 Numeric Location: Penis Character: Burning Aggravating Factor(s): Other - touch Alleviating Factor(s): Nothing Associated Signs And Symptoms: Positive: Penile Discharge - green yellowish. Negative: Diaphoresis, Back Pain, Fever, Hematuria, Dysuria, Rectal Pain, Nausea , Vomiting(# Of Episodes =), Penile Swelling - Risk Factors Testicular Torsion: Negative - Allergies/Home Medications Allergies/Adverse Reactions: Allergies Allergy/AdvReac Type Severity Reaction Status Date / Time amoxicillin [From Augmentin] Allergy Unknown Verified 05/18/18 10:35 Reaction Details clavulanic acid Allergy Unknown Verified 05/18/18 10:35 [From Augmentin] Reaction Details Home Medications: Home Medications Adalimumab (NF) [Humira Pen (NF)] 0.8 ml SEE INSTRUCTIONS 05/18/18 [History Confirmed 05/18/18] Ceramides 1,3,6-11 [Cerave] 05/18/18 [History] Cholecalciferol CAP/TAB(NF) [Vitamin D3 CAP/TAB (NF)] 5,000 unit PO 05/18/18 [ History] PMH/Surg Hx/FS Hx/Imm Hx Previously Healthy: Yes Endocrine History: Hypothyroidism Cardiovascular History: Hypertension Other GI/ History: B/L inguinal hernia, spematocel, hydrocele, chronic constipation Other Neurological History: Jain's palsy Other Psychological History: OCD, intellectual disability - Surgical History Surgical History: Unable to Obtain/Confirm - Family History Known Family History: Positive: Unknown - LEVEL 5 CAVEAT secondary to MR - Social History Occupation: Disabled Lives: With Family Alcohol Use: None Substance Use Type: None Smoking Status (MU): Never Smoked Tobacco - Immunization History Most Recent Influenza Vaccination: fall 2016 Most Recent Pneumonia Vaccination: up to date per facility staff Review of Systems Constitutional: Negative Skin: Negative Eyes: Negative ENT: Negative Respiratory: Negative Cardiovascular: Negative Gastrointestinal: Negative Genitourinary: Vaginal/Penile Discharge - yellowish discharge s/p tovar catheter placement Motor: Negative Neurovascular: Negative Musculoskeletal: Negative Neurological: Negative Psychological: Negative Is Patient Immunocompromised?: No All Other Systems Reviewed And Are Negative: Yes Physical Exam - Summary Physical Exam Summary: VITAL SIGNS: Reviewed. GENERAL: Patient w/ PMHX of intellectual disorder is a well developed and nourished female who is sitting comfortable in the examining table. Patient is not in any acute respiratory distress. HEAD AND FACE: No signs of trauma. No ecchymosis, hematomas or skull depressions. No sinus tenderness. EYES: PERRLA, EOMI x 2, No injected conjunctiva, clear watery eyes, no nystagmus. No photophobia. EARS: Hearing grossly intact. Ear canals and tympanic membranes are within normal limits. MOUTH: pharynx with no erythema, no exudates,no palatal petechiae. no B/L tonsillar enlargement Uvula in midline. NECK: Supple, trachea is midline, no lymphadenopathy, no JVD, no carotid bruit, no c-spine tenderness, neck with full ROM. CHEST: Symmetric, no tenderness at palpation LUNGS: Clear to auscultation bilaterally. No wheezing or crackles. CVS: Regular rate and rhythm, S1 and S2 present, no murmurs or gallops appreciated. ABDOMEN: Soft, non-tender. No signs of distention. No rebound no guarding, and no masses palpated. Bowel sounds are normal. Male: Normal external genitalia circumcised w/ Tovar catheter in place. some mild green yellowish drainage surrounding the entrance of penile urethra, no swelling or erythema observed, non tender to palpation. B/L inguinal hernia R >L BACK:no scoliosis or lesions, non tender to palpation, No B/L CVA tenderness EXTREMITIES: FROM in all major joints, no edema, no cyanosis or clubbing. NEURO: Alert and oriented x 3. No acute neurological deficits. Pt follows commands SKIN: Dry and warm Triage Information Reviewed: Yes Vital Signs: Initial Vital Signs Temp 97.8 F 05/18/18 10:31 Pulse 70 05/18/18 10:31 Resp 16 05/18/18 10:31 BP 114/50 05/18/18 10:31 Pulse Ox 98 05/18/18 10:31 Complaint Male Course/Dx - Course Course Of Treatment: 83-year-old male PMHX intellectual disorder presents to the urgent care accompanied by daughter. Daughter reports her father was hospitalized a month ago and D/C home w/a Tovar catheter in placed. He was tolerating it well for 2 weeks ago, then it was removed by home nurse. Then the urologist so him and placed it back again. This morning patient slept more than unusual and woke up with the Tovar catheter's strap around his Rt leg very tight and couldn't walk well. She loosen it up and Pt had a mild rash around. Then when she was showering him she noticed a green yellowish discharge in the pull-ups and some coming out of the urethra. Tovar catheter is in place and bag is getting full as normal. She denies fever, chills, SOB, chest pain, abdominal pain, N/V/D. Pt is being managed by Urologist Dr Davila. Hx obtained. Pt w/ a green yellowish penile discharge on examination. Pt's symptoms discussed w/ Dr Lee. Dr Lee evaluated pt and since Pt is not febrile and hemodynamically stable, he recommeded to order urine culture and penile discharge culture for further treatment and f/u w/ Dr Davila for further managment. Urethra discharge culture and urine culture obtained and sent to lab to r/o any abnormality. Daughter will be notified of results and depending on results treatment will be sent to pharmacy. Daughter also advised to f/u w/ Urologist Dr Gardner in 2 days for further management. D/c instructions explained. Daughter understood and agreed w/ plan of care. Pt left clinic ambulating and hemodynamically stable. - Differential Dx/Diagnosis Differential Diagnosis/HQI/PQRI: Prostatitis, Urinary Tract Infection, Other - pyelonephritis, urinary retention Provider Diagnoses: 1 Penile discharge s/p tovar catheter - Physician Notifications Discussed Patient Care With: Binh Lee - Dr Lee agreed w/ pt's plan of care Discharge - Sign-Out/Discharge Documenting (check all that apply): Patient Departure - D/c home - Discharge Plan Condition: Stable Disposition: HOME Patient Education Materials: Tovar Catheter Placement and Care (ED) Referrals: Elliot Rivera DO [Primary Care Provider] - 3 Days Sandoval Davila MD [Medical Doctor] - 2 Days Additional Instructions: 1 Urine culture and urethral culture was sent to lab to r/o any abnormality. You will be notifies for further management. 2 Pt is asymptomatic we will wait for culture results for further treatment. 3 Please f/u w/ Your Urologist Dr Gardner in 2 days for further management. 4 If yiur father develoeps fever, penile pain, abdominal pain, SOB, chest pain please take him immediately to the Er for further treatment. 5 Make sure the tovar catheter straps are not tight over night so it can create a tornique on him - Billing Disposition and Condition Condition: STABLE Disposition: Home
== END 2018-05-18 12:38 | disposition home or self-care (01) ==
LOC: UCEAST 10:15
DX: R36.9 Urethral discharge, unspecified (principal); R21 Rash and other nonspecific skin eruption; F79 Unspecified intellectual disabilities; Z88.1 Allergy status to other antibiotic agents; Z88.0 Allergy status to penicillin
CPT/HCPCS: 87070; 87086; 87205; 87640; 87641; 99212; G0463

== ENCOUNTER 2018-05-31 20:34 | Emergency (ER) | payer MEDICARE, MEDICAID ==
[2018-05-31 22:54] VITALS: BP 142/65
[2018-05-31 23:33] LABS: ABS Basophils 0 10^3/ul (0-0.2); ABS Eosinophils 0 10^3/ul (0-0.6); ABS Lymphocytes 2.1 10^3/ul (1.0-4.8); ABS Neutrophils 5.3 10^3/ul (1.5-7.7); ABS Nucleated RBC 0 10^3/ul; Eosinophil % 0 % (0-6); Hematocrit 39 % (42-52); Hemoglobin 13.5 g/dl (14.0-18.0); Mean Corpuscular HGB Conc 35 g/dl (31-36); Mean Corpuscular Hemoglobin 31 pg (27-31); Mean Corpuscular Volume 90 fL (80-94); Mean Platelet Volume 8.2 um3 (7.4-10.4); Nucleated Red Blood Cells % 0; Platelet Count 268 10^3/ul (150-450); Red Blood Count 4.33 10^6/ul (4.00-5.40); Red Cell Distribution Width 15 % (10.5-15); White Blood Count 8.4 10^3/ul (3.5-10.8)
--- NOTE | 2018-05-31 23:52 | ED ---
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 The patient rates the pain 0/10 in severity. Symptoms aggravated by nothing. Symptoms alleviated by nothing. Caregiver denies patient experiencing vomiting, fever, and diarrhea. Caregiver reports that the patient was wrongly given 15 mg olazanapine, 150 mg ranitidine, 100 mg sertraline, 100 mg trazadone at 2000 today. Patients nighttime meds were held due to this. - History Of Current Complaint Chief Complaint: EDGeneral Stated Complaint: ACCIDENTAL OVERDOSE Hx Obtained From: Patient Onset/Duration of Drug/ETOH Abuse: Hours Ingestion History: Type/Name Of Drug - 15 mg olazanapine, 150 mg ranitidine, 100 mg sertraline, 100 mg trazadone Overdose Characteristics: Oral Severity Initially: Mild Severity Currently: Mild Aggravating Factor(s): Nothing Alleviating Factor(s): Nothing - Allergies/Home Medications Allergies/Adverse Reactions: Allergies Allergy/AdvReac Type Severity Reaction Status Date / Time amoxicillin [From Augmentin] Allergy Unknown Verified 05/31/18 20:44 Reaction Details clavulanic acid Allergy Unknown Verified 05/31/18 20:44 [From Augmentin] Reaction Details PMH/Surg Hx/FS Hx/Imm Hx Previously Healthy: No Endocrine/Hematology History: Reports: Hx Thyroid Disease Denies: Hx Diabetes Cardiovascular History: Denies: Hx Hypertension Respiratory History: Denies: Hx Asthma, Hx Chronic Obstructive Pulmonary Disease (COPD) GI History: Denies: Hx Ulcer Sensory History: Reports: Hx Cataracts - BILAT Denies: Hx Contacts or Glasses, Hx Hearing Aid Opthamlomology History: Reports: Hx Cataracts - BILAT Denies: Hx Contacts or Glasses Neurological History: Reports: Hx Developmental Delay, Other Neuro Impairments/ Disorders - [place] Palsy Psychiatric History: Reports: Hx Anxiety - excessive, 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 - Surgical History Hx Anesthesia Reactions: No - UNKNOWN - Immunization History Date of Tetanus Vaccine: utd Date of Influenza Vaccine: utd Infectious Disease History: Unable to Obtain/Confirm Infectious Disease History: 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 Denies: Hx Clostridium Difficile, Hx Hepatitis, Hx Human Immunodeficiency Virus (HIV), Hx of Known/Suspected MRSA, Hx Shingles, Hx Known/Suspected VRE, Hx Known/Suspected VRSA, History Other Infectious Disease, Traveled Outside the [place] in Last 30 Days - Family History Known Family History: Positive: Unknown - LEVEL 5 CAVEAT secondary to MR - Social History Alcohol Use: None Substance Use Type: Reports: None Smoking Status (MU): Never Smoked Tobacco Review of Systems - ROS Summary Review of Systems Summary: ROS LIMITED DUE TO LEVEL 5 CAVEAT - PATIENT IS MR Negative: Fever Negative: Vomiting, Diarrhea All Other Systems Reviewed And Are Negative: No Physical Exam - Summary Physical Exam Summary: PE LIMITED DUE TO LEVEL 5 CAVEAT - PATIENT IS MR Appearance: Nontoxic appearing Skin: Warm, dry, no mottling, no rashes, no contusions HEENT: EOMI, PERRL, moist mucous membranes Neck: No masses on the neck, supple Respiratory: breath sounds present Cardiovascular: RRR Abdomen: Soft, non-tender Bowel Sounds: Present Musculoskeletal: No CVA tenderness, no obvious deformity, moving all extremities in a grossly normal manner Neurological: A&Ox3, CN II-XII Intact, moving all extremities symmetrically. Arousable, at baseline of mental status per staff Psychiatric: Normal affect and mood Triage Information Reviewed: Yes Vital Signs On Initial Exam: Initial Vitals Temp Pulse Resp BP Pulse Ox 98.1 F 60 16 145/103 96 05/31/18 20:37 05/31/18 20:37 05/31/18 20:37 05/31/18 20:37 05/31/18 20:37 Vital Signs Reviewed: Yes Diagnostics - Vital Signs Vital Signs Temp Pulse Resp BP Pulse Ox 05/31/18 22:20 59 142/65 95 05/31/18 20:37 98.1 F 60 16 145/103 96 - Laboratory Lab Results: Lab Results 05/31/18 Range/Units 23:23 WBC 8.4 (3.5-10.8) 10^3/ul RBC 4.33 (4.00-5.40) 10^6/ul Hgb 13.5 L (14.0-18.0) g/dl Hct 39 L (42-52) % MCV 90 (80-94) fL MCH 31 (27-31) pg MCHC 35 (31-36) g/dl RDW 15 (10.5-15) % Plt Count 268 (150-450) 10^3/ul MPV 8.2 (7.4-10.4) um3 Neut % (Auto) 62.6 (38-83) % Lymph % (Auto) 25.0 (25-47) % [place] % (Auto) 12.0 H (0-7) % Eos % (Auto) 0 (0-6) % Baso % (Auto) 0.4 (0-2) % Absolute Neuts (auto) 5.3 (1.5-7.7) 10^3/ul Absolute Lymphs (auto) 2.1 (1.0-4.8) 10^3/ul Absolute Monos (auto) 1.0 H (0-0.8) 10^3/ul Absolute Eos (auto) 0 (0-0.6) 10^3/ul Absolute Basos (auto) 0 (0-0.2) 10^3/ul Absolute Nucleated RBC 0 10^3/ul Nucleated RBC % 0 Result Diagrams: 05/31/18 23:23 05/31/18 23:23 Lab Statement: Any lab studies that have been ordered have been reviewed, and results considered in the medical decision making process. 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 Caregiver reports that the patient was wrongly given 15 mg olazanapine, 150 mg ranitidine, 100 mg sertraline, 100 mg trazadone at 2000 today. Patients nighttime meds were held due to this. Physical Exam Findings: Arousable. At baseline mental status per caregiver. Bloodwork obtained. Patient will be discharged back to care facility with follow up from PCP. The patient is agreeable with this plan. - Diagnoses Provider Diagnoses: Accidental overdose Discharge - Sign-Out/Discharge Documenting (check all that apply): Patient Departure - Discharge home - Discharge Plan Condition: Stable Disposition: HOME Patient Education Materials: Adult Overdose (ED) Referrals: Elliot Rivera DO [Primary Care Provider] - Additional Instructions: Please hold your night time meds tonight. In the morning if you are still sleepy, hold your psychiatric meds as well. Return if worse or any new symptoms. Take all other medications as previously instructed. Follow up with your doctor on Sunday. Please be very at the home when administering medications. Please ensure patient only receives his medications. Attestations Scribe Attestation: This is scribe Halima Cross documenting for attending Michell Christina MD. User Type: Provider with Scribe Provider Attestation: The documentation recorded by the scribe accurately reflects the service I personally performed and the decisions made by me.
== END 2018-06-01 00:32 | disposition home or self-care (01) ==
LOC: ED 20:34
DX: T43.591A Poisoning by other antipsychotics and neuroleptics, accidental (unintentional), initial encounter (principal); T47.0X1A Poisoning by histamine H2-receptor blockers, accidental (unintentional), initial encounter; T43.221A Poisoning by selective serotonin reuptake inhibitors, accidental (unintentional), initial encounter; T43.211A Poisoning by selective serotonin and norepinephrine reuptake inhibitors, accidental (unintentional), initial encounter; Y92.10 Unspecified residential institution as the place of occurrence of the external cause; Z88.1 Allergy status to other antibiotic agents; Z88.0 Allergy status to penicillin
CPT/HCPCS: 36415; 80053; 85025; 99282

== ENCOUNTER 2018-06-04 08:00 | Emergency (ER) | payer MEDICARE, MEDICAID ==
[2018-06-04 08:18] VITALS: BP 184/80
--- NOTE | 2018-06-04 08:27 | UC ---
Hip/Pelvis Pain - HPI Summary HPI Summary: RESIDENT OF [facility]. 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 LANDED ON LEFT HIP - WITNESSED BY STAFF. PT NOT INDICATING HE HAS ANY PAIN. IS WALKING/RUNNING AND MOVING AT BASELINE. BROUGHT IN FOR EVAL OUT OF AN ABUNDANCE OF CAUTION. - History Of Current Complaint Chief Complaint: UCLowerExtremity Stated Complaint: FELL HIP PAIN Time Seen by Provider: 06/04/18 08:16 Hx Obtained From: Family/Stitch Bonding Machine Tender Helper - STAFF MEMBER - VERONICA Onset/Duration: Sudden Onset, Lasting Hours Severity Currently: None Pain Intensity: 0 Pain Scale Used: Adult Non Verbal Character Of Pain: Unable To Describe Aggravating Factor(s): Nothing Associated Signs And Symptoms: Positive: Negative - Allergies/Home Medications Allergies/Adverse Reactions: Allergies Allergy/AdvReac Type Severity Reaction Status Date / Time amoxicillin [From Augmentin] Allergy Unknown Verified 06/04/18 08:13 Reaction Details clavulanic acid Allergy Unknown Verified 06/04/18 08:13 [From Augmentin] Reaction Details Home Medications: Home Medications Betamethasone Dip 0.05% ON(NF) [Betamethasone Dipr 0.05% OINT(NF)] 1 applic .SEE ORDER BID 06/04/18 [History Confirmed 06/04/18] Chlorhexidine MOUTHWASH 0.12%* [Peridex Mouth Wash 0.12%*] 15 ml MT BID [History Confirmed 06/04/18] Cholecalciferol (Vitamin D3) [D 5000] 5,000 unit PO DAILY 06/04/18 [History Confirmed 06/04/18] Docusate CAP* [Colace Cap*] 200 mg PO BID 06/04/18 [History Confirmed 06/04/18] Levothyroxine TAB* [Synthroid TAB*] 50 mcg PO DAILY 06/04/18 [History Confirmed 06/04/18] Multivitamin [Multivitamins] 1 tab PO DAILY 06/04/18 [History Confirmed 06/04/18 ] clonazePAM TAB(*) [Klonopin TAB(*)] 0.25 mg PO DAILY 06/04/18 [History Confirmed 06/04/18] clonazePAM TAB(*) [Klonopin TAB(*)] 0.5 mg PO DAILY 06/04/18 [History Confirmed 06/04/18] PMH/Surg Hx/FS Hx/Imm Hx - Additional Past Medical History Additional PMH: BPH with indwelling Romero, artherosclerosis, hydrocele, aortoiliac syndrome, bilat inguinal hernia, chronic constipation, chronic uticaria, psoriasis Endocrine History: Hypothyroidism Psychological History: Anxiety - Surgical History Surgical History: Unable to Obtain/Confirm - Family History Known Family History: Positive: Unknown - LEVEL 5 CAVEAT secondary to MR - Social History Alcohol Use: None Substance Use Type: None Smoking Status (MU): Never Smoked Tobacco - Immunization History Most Recent Influenza Vaccination: fall 2016 Most Recent Pneumonia Vaccination: up to date per facility staff Review of Systems Constitutional: Negative Skin: Negative Respiratory: Negative Cardiovascular: Negative Gastrointestinal: Negative Musculoskeletal: Negative All Other Systems Reviewed And Are Negative: Yes Physical Exam Triage Information Reviewed: Yes Appearance: No Pain Distress, Well-Nourished Vital Signs: Initial Vital Signs Temp 97.9 F 06/04/18 08:07 Pulse 62 06/04/18 08:07 Resp 16 06/04/18 08:07 BP 184/80 06/04/18 08:07 Pulse Ox 97 06/04/18 08:07 Vital Signs Reviewed: Yes Eyes: Positive: Conjunctiva Clear ENT: Positive: Hearing grossly normal Neck: Positive: Supple Respiratory: Positive: No respiratory distress, No accessory muscle use Cardiovascular: Positive: Pulses Normal Musculoskeletal: Positive: No Edema Neurological: Positive: Alert Psychological: Positive: Other: - BASELINE Skin: Negative: rashes Hip Injury Course/Dx - Course Course Of Treatment: XRAYS UNABLE TO BE OBTAINED DUE TO PT NOT COOPERATING WITH POSITIONING. HE HAS NOT EXHIBITED ANY SIGNS OF PAIN. IS AMBULATING AND MOVING AT BASELINE. NO TENDERNESS ON EXAM. PT WAS BROUGHT IN OUT OF AN ABUNDANCE OF CAUTION PT IS MR AND NON VERBAL. ADVISED STAFF TO BE VIGILANT OF PT SX AND TO RETURN FOR RE-EVAL IF HE SHOWS ANY SIGNS OF PAIN/HIP INJURY. - Differential Dx/Diagnosis Provider Diagnoses: LEFT HIP CONTUSION Discharge - Sign-Out/Discharge Documenting (check all that apply): Patient Departure All imaging exams completed and their final reports reviewed: No Studies - Discharge Plan Condition: Stable Disposition: HOME Patient Education Materials: Hip Contusion (ED) Referrals: Elliot Rivera DO [Primary Care Provider] - If Needed Additional Instructions: SEEK FOLLOW-UP HERE OR IN ED IF STORMY STARTS EXHIBITING SIGNS OF PAIN. - Billing Disposition and Condition Condition: STABLE Disposition: Home
== END 2018-06-04 09:05 | disposition home or self-care (01) ==
LOC: UCEAST 08:00
DX: S70.02XA Contusion of left hip, initial encounter (principal); W06.XXXA Fall from bed, initial encounter; Y92.193 Bedroom in other specified residential institution as the place of occurrence of the external cause; E03.9 Hypothyroidism, unspecified; Z88.3 Allergy status to other anti-infective agents
CPT/HCPCS: 99212; G0463

== ENCOUNTER 2018-06-23 07:52 | Emergency (ER) | payer MEDICARE, MEDICAID ==
--- NOTE | 2018-06-23 08:18 | ED ---
GI/ HPI - HPI Summary HPI Summary: Pt. is a 83-year-old male who presents emergency Department from [facility] for hematuria. Pt.'s caregiver who is present pt. was [place] [facility] [place] 2[place] for pneumonia and was found to have urinary retention secondary to BPH. Indwelling catheter was placed at that time. 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 pain, V/D. Pt. is nonverbal. Symptoms are mild in severity. No current modifying factors. 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 Pain Intensity: 0 - Additional Pertinent History Primary Care Physician: JAMES - Allergy/Home Medications Allergies/Adverse Reactions: Allergies Allergy/AdvReac Type Severity Reaction Status Date / Time amoxicillin [From Augmentin] Allergy Unknown Verified 06/23/18 08:11 Reaction Details clavulanic acid Allergy Unknown Verified 06/23/18 08:11 [From Augmentin] Reaction Details PMH/Surg Hx/FS Hx/Imm Hx Previously Healthy: Yes Endocrine/Hematology History: Reports: Hx Thyroid Disease - hypo Denies: Hx Diabetes Cardiovascular History: Denies: Hx Hypertension Respiratory History: Denies: Hx Asthma, Hx Chronic Obstructive Pulmonary Disease (COPD) GI History: Denies: Hx Ulcer Sensory History: Reports: Hx Cataracts - BILAT Denies: Hx Contacts or Glasses, Hx Hearing Aid Opthamlomology History: Reports: Hx Cataracts - BILAT Denies: Hx Contacts or Glasses Neurological History: Reports: Hx Developmental Delay, Other Neuro Impairments/ Disorders - [place] Palsy Psychiatric History: Reports: Hx Anxiety - excessive, 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 - Surgical History Hx Anesthesia Reactions: No - UNKNOWN - Immunization History Date of Tetanus Vaccine: utd Date of Influenza Vaccine: utd Infectious Disease History: No Infectious Disease History: 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 Denies: Hx Clostridium Difficile, Hx Hepatitis, Hx Human Immunodeficiency Virus (HIV), Hx of Known/Suspected MRSA, Hx Shingles, Hx Known/Suspected VRE, Hx Known/Suspected VRSA, History Other Infectious Disease, Traveled Outside the [place] in Last 30 Days - Family History Known Family History: Positive: Unknown - LEVEL 5 CAVEAT secondary to MR - Social History Occupation: Disabled Lives: Half-Way Alcohol Use: None Substance Use Type: Reports: None Smoking Status (MU): Never Smoked Tobacco Review of Systems Constitutional: Negative Negative: Fever, Chills Eyes: Negative ENT: Negative Cardiovascular: Negative Respiratory: Negative Gastrointestinal: Negative Positive: hematuria Neurological: Negative All Other Systems Reviewed And Are Negative: Yes Physical Exam Triage Information Reviewed: Yes Vital Signs On Initial Exam: Initial Vitals Temp Pulse Resp BP Pulse Ox 97.0 F 65 16 131/72 99 06/23/18 08:06 06/23/18 08:06 06/23/18 08:06 06/23/18 08:06 06/23/18 08:06 Vital Signs Reviewed: Yes Appearance: Positive: Well-Nourished - Pt. sitting on side of bed hitting his face. Caregiver present. Skin: Positive: Warm, Dry Head/Face: Positive: Normal Head/Face Inspection Eyes: Positive: Normal, EOMI Neck: Positive: Supple Respiratory/Lung Sounds: Positive: Clear to Auscultation, Breath Sounds Present Cardiovascular: Positive: Normal, RRR Abdomen Description: Positive: Nontender, Soft Male Genital Exam: Positive: Other - Blood noted on leg. Tovar catheter is completely out of penis with balloon and tip intact. Musculoskeletal: Positive: Normal, Strength/ROM Intact Neurological: Positive: Normal, CN Intact II-III Psychiatric: Positive: Patient Uncooperative for Exam Diagnostics - Vital Signs Vital Signs Temp Pulse Resp BP Pulse Ox 06/23/18 08:06 97.0 F 65 16 131/72 99 - Laboratory Lab Statement: Any lab studies that have been ordered have been reviewed, and results considered in the medical decision making process. GIGU Course/Dx - Course Course Of Treatment: Pt. presenting for hematuria. He has actually pulled out his tovar completely. He is afebrile with stable vital signs. Pt.'s caregiver states that pt. is at his baseline. Pt. is very uncooperative for exam and is swinging his arms. Concerned we will have a difficult time replacing tovar and suspect pt. will likely pull it out again. I spoke with pt.'s urologist, Dr. Davila. Dr. Davila states pt. is going to need a TURP at some point which will require a tovar post op for about [address] Davila is concerned with pt.'s MR and combativeness that he would pull out catheter after sx and could have potential severe bleeding. Dr. Davila states that a laser prostatectomy would be more appropriate for pt. since catheter only remains for about one day. Dr. Davila states that we do not do this procedure at [facility] but it is performed at [facility]. Dr. Davila recommends transfer to [facility] for this procedure. Dr. Davila actually spoke with [facility] urologist, Dr. Munson, who has accepted pt. in transfer. However pt.'s consent is performed by [place]. Pt.'s caregiver was able to get info for the real estate administrator on duty at facility, Cristal Obrien, who would be able to give emergent consent. Dr. Munson spoke with Cristal and given the fact that procedure is not necessarily emergent consent was denied. Plan will be to replace catheter in ER and Dr. Munson's office will get pt. scheduled for outpt. elective sx. Catheter was replaced in ER and pt. dc back to residential. - Diagnoses Differential Diagnoses - Male: Ureteral Calculi, Urethritis, Urinary Tract Infection Provider Diagnoses: Dislodged Tovar catheter, Urethral trauma Discharge - Sign-Out/Discharge Documenting (check all that apply): Patient Departure - Discharge Plan Condition: Good Disposition: HOME Patient Education Materials: Tovar Catheter Placement and Care (ED) Referrals: Elliot Rivera DO [Primary Care Provider] - Additional Instructions: Dr. Munson, urologist, from [facility] will be contacting you for to schedule an appointment for further treatment of BPH - Billing Disposition and Condition Condition: GOOD Disposition: Home
--- OUTSIDE RECORDS SUMMARY | 2018-06-23 09:21 | XMS REPORT ---
:1935 External Reference #:[id number] Author Organization [facility] Address [address] [place] [address] Phone [phone] Care Team Providers Name Role Phone HCP given Primary Care Physician Unavailable Payers Type Date Identification Numbers Payment Provider Subscriber Medicare Primary Policy Number: [id number] [facility] Leyla Carranza Services PayID: [id number] [facility] [address] Policy Number: [id number] Medicaid Leyla Carranza Group Name: [id number] [facility] PayID: [id number] [place] [address] Problems Date Description Provider Status Onset: 02/10/2004 [...] Smoke-Free Home is smoke-free General Res[facility] Cigarette Use Denies Cigarette Use Cigarette Use 07/04/2011 Tobacco Of Any Kind Denies Use ETOH Use Denies alcohol use Smoking Non Smoker / No Tobacco Exercise Type/Frequency Exercises sporadically Allergies, Adverse Reactions, Alerts Date Description Reaction Status Severity Comments 03/02/2005 Augmentin REACTION UNKNOWN WAS ON FILE ON ADM active TO [facility] Medications Medication Date Status Form Strength Qnty SIG Indications Ordering Provider Clonazepam 06/21 Active Tablets 0.5mg 5tabs take 10/16 F41.9 tablet by Elliot, mouth 30 D.O. min prior to cystoscopy/ tovar replacement /lab draw for anxiety Speech 06/21 [facility] Elliot, Swallow Eval D.O. Systane Ultra 05/15 Active Solution 0.4-0.3% 75uni 1 drop both , Preservative ts eyes as Elliot, Free needed D.O. every 4 hours for dry eyes Lipitor 05/07 Active Tablets 80mg 30tab 80 MG PO E78.4 carmen, s 1700 Jaqueline Zarate. Metoprolol 04/18 Active Tablets 25mg 1 by mouth Unknown twice a day Tamsulosin HCL 04/18 Active Capsules 0.4mg 90cap 1 by mouth carmen s every day Jaqueline Zarate. Lactulose 04/18 Active Solution 10GM/15ML 750ml use as Silcoff, directed Liang (with goal M.D. of having 2 soft bms/day) 30 milliliters daily Chlorhexidine 04/18 Active Solution 0.12% 1 oral dose Unknown Gluc bid Proscar 04/18 Active Tablets 5mg 30tab 5 MG PO s Daily Elliot, D.O. Miralax 03/21 Active Powder 527GM 527un 1 [...] Nasal 03/15 Active Solution 0.65% 44ml instill into each Elliot, nostril D.O. daily Cerave 02/05 Active Cream 453un Apply To its Body Twice Elliot, Daily (Dry D.O. Skin) Am=After Bath/ PM=Before Bed Claritin 10MG 10/25 Active 30uni Take 1 ts Tablet By Elliot, Mouth Every D.O. Day (For Allergies) Chlorpromazine 09/22 Active Tablets 25mg 1 tablet po V40.3 Unknown HCL in the evening at bedtime Colace 100MG 09/12 Active 120un Take 2 K59.01 its Capsules By Elliot, Mouth Twice D.O. A Day (Stool Softening) Chlorpromazine 06/15 Active Tablets 25mg 1 by mouth Endo, HCL every Leyla, evening PhD Carave 06/15 Active QS apply t [facility], Moisturizing legs & body Elliot, Cream 2xdaily in D.O. the morning & at night Guaifenesin 06/15 Active Liquid 100mg/5ML 2 tsp po every 4 hrs prn Ducodyl 06/[address] 5mg 10mg on day 2 if no BM Tylenol Supp 06/15 Active Insert 1 rectally every 4 hrs prn temp >101 Hydrocortisone 06/15 Active Cream 0.2% apply to Unknown facial lesions bid prn dryness, itching or redness [place] Saline 06/13 Active Gel 14.1u Apply nits Inside Elliot, Nostrils D.O. Twice Daily (Dryness) Fleet Enema 04/20 Active Enema 7-19GM/11 665un Insert 1 8ML its Rectally On [...] bs tabs po A. every 4 h Klearmando, prn muscle M.D. aches or discomfort Antacid 09/30 Active Suspension 200-200-2 Unknown Anti-Gas 0mg/5ML Mineral Oil 09/30 Active Oil instill 3 gtts in each ear tid and flush every third day prn Vitamin A & D 09/30 Active Oint ointment prn Desitin 09/30 Active Ointment prn Vitamin D-3 06/28 Active Tablets 5000Unit 90tab 1 tab by [facility] s mouth every Elliot, day or 7 D.O. tabs once a week Multi 05/12 Active Tablets 90tab 1 po daily. Miguel, Complete/Iron s Elliot, D.O. Humira 03/11 Active PSKT 40mg/0.8M subq inj L every other week as directed Triamcinolone 08/13 Active Ointment 0.1% 454un apply twice [facility], Acet its daily for 2 Elliot, weeks D.O. alternating with diprolene ,not to face or folds (refer to rx#[id number] ) Peridex 0.12% 06/04 Active 473un Swab 1 [facility], Oral Rinse its Teaspoon On Elliot, Gums Twice D.O. Daily For Oral Care Nasal Moist Gel 02/02 Active Gel QS apply to [facility] inside of Elliot, nose 2 x a D.O. day # 90 day supply. Tar Soaks 02/19 Active twice a L40.0 Tangoren week MD Nichole Diprolene 02/19 Active Ointment 0.05% 45uni Apply To L40.0 [facility] ts Affected Elliot, Areas Twice D.O. Daily Times 2 Weeks Alternating With Triamcinolo ne, Not To Face Or Folds Vectical 02/19 Active Ointment 3mcg/GM 100un Apply To L40.0 [facility] its Legs Twice Elliot, Daily After D.O. Bath & Before Bed. (Psoriasis) Enulose 07/07 Active Solution 10GM/15ML 950un 2 K59.01 [facility] its tablespoon Elliot, every day D.O. Diapers Adult 06/27 Active 100un :Adult its Medium A. Pull-Up Due Bridgett, To Leakage M.D. Topiramate 06/05 Active Tablets 25mg 60tab take 1 tab s twice a day Elliot, after meals D.O. Klonopin 03/05 Active Tablets 0.5mg 20tab 1 at bed Silcoff s time Yohannes Tavera Tylenol 11/28 Active Tablets 325mg 60tab give 2 s tablets po A. p3kchup prn Bridgett, for pain or M.D. fever >101.0f Aspirin Low 11/28 Active Chewtabs 81mg 15uni Take 1 [facility] ts Tablet By Elliot, Mouth Every D.O. Other Day (Prevent Heart Disease) Zincon Dandruff Active Shampoo 1% QS 3 x a week Sopchak, Elliot, D.O. [place] 0.2% Active 45uni [facility] ts Facial Elliot, Lesions D.O. Twice Daily as Needed Dryness, Itching Or Redness. Must Be Applied By Amap Notify RN When Used, Dheeraj N Tarsum Active Shampoo 10-5% 472un 2 Capfuls , its AT Bath Elliot, Time Every D.O. Day (Tar Bath) For Washing Body Atorvastatin 04/18 Hx Tablets 40mg 90tab 1 by mouth E78.4 [facility] every day Elliot, - D.O. 04/19 Atorvastatin 04/18 Hx Tablets 80mg 1 by mouth E78.4 Unknown every - evening at 05/07 5 pm Linezolid 04/18 Hx Tablets 600mg 1 by mouth every 12 - hours 04/22 Flonase Allergy 01/05 Hx Suspension 50mcg/Act 47.40 2 sprays J30.9 Sopchak, 0ml each Elliot, - nostril D.O. 02/04 daily Tylenol Extra 01/05 Hx Tablets 500mg 56tab take two J30.9 Sopchak, s tablets by Elliot, - mouth 2 D.O. 01/19 times a day for 2 weeks scheduled Artificial 08/10 Hx Solution 1.4% 45ml 1 drop both Sopchak, eyes as Elliot, - needed for D.O. 05/15 dry eyes Miralax 07/21 Hx Powder 3350NF 510un 1 capful in [facility] its 8 oz. of Elliot, - water by D.O. 03/21 mouth every day Hold for > 3 stools/day Clonazepam 06/15 Hx Tablets 0.25mg 3tabs 1 in the [facility] Dispers morning Elliot, - crushed as D.O. 06/21 needed for procedures/ lab draws Dandruff 06/15 Hx Shampoo 3x/wk Unknown Shampoo /2015 - 04/22 Deep Sea Nasal 06/15 Hx Solution instill Unknown into each - nostril 03/15 Claritin 05/29 Hx Capsules 10mg 1 by mouth every day - 10/25 Claritin 10MG 11/29 Hx 28uni Take 1 , ts Tablet By Elliot, - Mouth Once D.O. 06/15 Doxycycline 11/05 Hx Tablets 100mg 20tab 1 [facility]9 [facility]. [facility] 11[facility] M.D. Doxycycline 10/01 Hx Tablets 100mg 20tab 1 [facility] A. - days [facility], 11/04.D Bacitracin 09/30 Hx Ointment 500Unit/G prn Unknown M - 07/27 Calamine 09/30 Hx Lotion prn - 04/22 Azithromycin 08/25 Hx Tablets 250mg 6tabs take 2 tablets by Elliot, - mouth one D.O. 08/30 time on the first then take 1 tablet by mouth daily for 4 days Chlorpromazine 06/14 Hx Tablets 25mg 1 tab daily Sopana, HCL and 2 tabs Elliot, - at hs D.O. 06/15 Urine 02/12 Hx Sopchak, Benzodiazepine Elliot, Level - D.O. 02/22 Polytrim 09/03 Hx Solution 13710-5.1 10uni Instill 1 Unit/ML-% ts Drop In The Elliot, - Affected D.O. 11/27 Eye(S) /2013 Three Times Daily For 5-7 Days Acetaminophen 08/28 Hx Suppository 650mg 10uni 1 tid as Sopana ts needed for Elliot, - pain D.O. 09/27 Prednisone 08/13 Hx Tablets 20mg (decreasing doses x7 - days) 08/20 Tears Naturale 08/13 Hx Solution 0.1-0.2-0 15ml 2 drops as Miguel Forte .3% needed - 6 Elliot, - times/day D.O. 08/18 Nystatin 08/03 Hx Cream [id number] 30uni Apply 1 Sopchak t/GM ts Application Elliot, - Topically D.O. 02/12 To Area On Both Buttocks 2 Times Per Day For Rash Nystatin 12/29 Hx Powder [id number] 60uni Dust Powder 110.4 Silco t/GM ts Freely On Liang, - The Feet M.D. 01/14 And Shoes And Socks Three Times A Day as Needed To Keep Feet Dry For Fungal Infection Artificial 08/26 Hx Solution 0.4% QS1Mo 2 drops ana each eye 3 Elliot, - to 4 times D.O. 08/10 a day /2015 Niaspan 08/21 Hx Tablets ER 1000mg 30tab Take 1 E78.4 s Tablet By Elliot, - Mouth Every D.O. 04/18 Day (Dietary Supplement) Elimite 05/13 Hx Cream 5% 60g Apply cream from head Liang, - to toe; M.D. 05/20 leave on for 8-14 hrs before washing off with water; may reapply in 1 wk if live mites appear Mupirocin 07/12 Hx Ointment 2% 22gm apply to 684 affected A. - area tid Bridgett, 07/12 M.D. Debrox 04/05 Hx Solution 6.5% 1bott instill 380.4 Lakisha le 5-10 drops Liang, - in ear qid, M.DRashmi 04/05 up to days, keep drops in ear for several min Triazolam 03/21 Hx Tablets 0.25mg 6tabs 2, one hour 318.2 Miguel prior to Elliot, - dental work D.O. 05/19 Bactroban 03/21 Hx Ointment 2% 22gm use bid and 892.0 rug in well A. - to area on [facility], 04/20 foot M.D. Sulfamethoxazol 06/13 Hx Tablets 800-160mg 20tab 1 po bid 681.00 Max e/Trimethoprim s A. DS - [facility], 06/23 M.D. 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 Syringe 1 cc 06/06 Hx 1unit V65.49 Max With 25GA 1 10/16 s [facility]. [facility] 07[facility] M.D Deep Sea Nasal 06/05 Hx Solution 0.65% 1bott 1 spray per Miguel le nostril Elliot, - daily D.O. 06/13 Cephalexin 04/28 Hx Tablets 500mg 1 po qid X 5 Days - 06/05 Debrox 03/28 Hx Solution 6.5% 1bott instill le 5-10 drops A. - in ear qid, [facility], 03/28 3 days, M.D. keep drops in ear for several min Bactroban Nasal 03/07 Hx Ointment 2% apply to 784.7 affected r, - area in [place], 06/05 right nostril bid for 2-4wks Saline 0.65% 08/23 Hx Nasal Itmann 44uni Itmann 1 ts Itmann In A. - Each [facility], 02/02 Nostril M.D. Once A Day Bactrim DS 08/04 Hx Tablets 800-160mg 14tab 1 po bid x 681.02 Joycecobrittani, s 7 days Lance Tavera.Noa 08/11 Colace 07/13 Hx Capsules 100mg 120ca 2 caps 564.01 Miguel ps (200mg) by Elliot, - mouth twice D.O. 09/12 daily hold for loose stools - notify rn if held Enbrel 04/19 Hx Solution 50mg/ml 1 cc twice 696.1 Caty weekly Nichole, - 03/11 Hydrocortisone 11/23 Hx Ointment 2.5% 20gm apply 782.1 springly A. - to affected Bridgett 12/13 area tid M.D. for 2 weeks Clarithromycin 11/23 Hx Tablets 250mg 20tab 1 po bid 782.1 s A. - Bridgett 04/18 M.D. Haloperidol 11/19 Hx Tablets 1mg 5tabs 1, one hour 318.2 before A. - appointment Bridgett 11/23 M.D. V40.3 Sulf-10 07/09/2008 - Hx Solution 10% Max ARashmi 07/09/2008 Yohannes Whitlock Sodium Sulamyd 07/09/2008 - Hx 10% QS 1 gtt each eye Rashmi 07/09/2008 qid x 7 days. Yohannes Whitlock Miralax 07/01/2007 - Hx Powder 3350NF 527gm 1 capful bid 564.0 Max ARashmi 07/07/2011 for 1 dejon Whitlock M.D. Loratadine 01/07/2007 - Hx Tablets 10mg 30tab 1 po qd for 460 Max ARashmi 01/06/2011 s allergies Yohannes Whitlock Ilotycin Opthal 06/19/2006 - Hx .5% QS use qid for 7 372.0 Max . 06/26/2006 Oint days o.u. 3 Yohannes Whitlock Chlorpromazine 02/09/2006 - Hx Tablets 25mg 120ta take on tablet V40.3 Max ARashmi 06/16/2016 bs every morning Bridgett, and three Aníbal.DRashmi tablets at bedtime Bisacodyl 12/28/2005 - Hx Tablets 5mg 60tab 2 po For No BM 564.0 Max Rashmi 10/01/2015 s In 48 Hours 1 Yohannes Whitlock Peridex 11/28/2005 - Hx Rinse 0.12%;1 1Bott give 10mls bid Max ARashmi 04/09/2008 1.6%Alc le after brushing amanda Whitlockol teeth Yohannes Bisacodyl 11/28/2005 - Hx Suppositor 5mg 60uni Give 2 Tablets Max ARashmi 12/28/2005 ts PO If No BM In Bridgett, 48Hours M.DRashmi Calamine Lotion 11/28/2005 - Hx Liquid tid prn Max ARashmi 04/09/2008 Yohannes Whitlock Palisades Bismuth 11/28/2005 - Hx 1Bott 30 cc PO After Max A. Liquid 04/09/2008 le Each Loose Bridgett Stool; Not To M.DRashmi Exceed tid X3days Mineral Oil 11/28/2005 - Hx 1Bott as Directed Max ARashmi 01/19/2007 marnei Whitlock M.D. Bacitracin 11/28/2005 - Hx 1Bott Apply Max A. Ointment 04/09/2008 le Topically bid harvey Whitlock To Open M.DRashmi Areas Katrin D 02/23/2005 - Hx Tablets 60mg;12 60tab 1 po bid for 460 Max A. 01/07/2007 0 mg s allergy Yohannes Whitlock Flonase 02/03/2005 - Hx Itmann 50mcg/S 2unit 2 sprays in Max A. 03/02/2005 pray s each nostril gustavo Whitlock M.D. Chloral Hydrate 01/16/2005 - Hx Syrup 500mg/5 80cc 10 cc po 1hr Max ARashmi 11/19/2008 ML before amish Whitlock M.D. Atarax 09/26/2004 - Hx Tablets 50mg 7tabs 1 tab po hs klepajesica 10/19/2006 Raptiva 09/25/2004 - Hx Injection 125mg/V 696.1 Max A. 02/12/2009 ial Yohannes Whitlock Artificial Tears 08/11/2004 - Hx 1Bott 2 gtts to each Max ARashmi 04/09/2008 le eye Q4H prn Yohannes Whitlock Chlorhexidine 08/11/2004 - Hx Rinse 0.12% 1Bott use 10mls to Max Bragg Gluconate 06/10/2014 le rinse mouth Bridgett, after brushing M.DRashmi teeth bid Saline Nasal 08/02/2004 - Hx QSX1M 1 spray ea 477.0 Max Bragg Itmann 02/02/2014 o nostril qd Yohannes Whitlock Flonase 07/06/2004 - Hx Suspension 50mcg/S 2unit 1 spray each Max Bragg 02/03/2005 pray s nare bid Yohannes Whitlock Ear Wax Removal 04/26/2004 - Hx Qs1mo use 5 drops Max Bragg Drops 05/30/2004 each ear hs Bridgett, for 4 days per M.DRashmi month irragate on day 5 with warm water Multivitamins W/ 03/21/2004 - Hx Tablets 30tab 1 every day Sopchadonna, Iron 05/12/2015 s Elliot DRashmiORashmi Fleets Enema 02/11/2004 - Hx 5unit [address] [facility] 04/[facility]2016 s rectum as Elliot, needed with no D.O. results from bisacodyl tabs in 24hrs Bisacodyl 01/08/2004 - Hx Suppositor 10mg 10uni 1 suppository Max Bragg 11/28/2005 ts every 3 days jodee Whitlock no BM prn Yohannes Levoxyl 01/06/2004 - Hx Tablets 50mcg 30tab 1 tab by mouth 244.9 Sopchak, 10/25/2015 s daily for Elliot, thyroid on D.O. empty stomach in the in the morning Niaspan Extended 12/04/2003 - Hx Tablets 1000mg 30tab 1 tablet po 272.4 Max Bragg Release 08/21/2013 s [facility] Yohannes Whitlock Ferrous Sulfate 12/04/2003 - Hx Tablets 325mg 60tab 1 po bid Max Bragg 04/09/2007 s Yohannes Whitlock Doxycycline 09/29/2003 - Hx Capsules 100mg 20cap 1 bid for ten 461.9 Max Bragg Hyclate 01/06/2004 s days Yohannes Whitlock Pentoxifylline 09/28/2003 - Hx Tablets 400mg 90tab 1 po tid 443.9 Max Bragg 04/09/2008 s Yohannes Whitlock Aspirin Enteric 09/28/2003 - Hx Tablets 325mg 15tab 1 pill daily Max Bragg Coated 11/28/2005 s in the morning Bridgett, with food for M.DRashmi decreasing risk of stroke and heart attacks Docusate Sodium 09/28/2003 - Hx Capsules 100mg 120ca 2 po bid hold Max Bragg 07/13/2010 ps for loos Bridgett, stools Yohannes Claritin - Hx Capsules 10mg 30cap 1 by mouth Sopchak, 11/29/2015 s every day Arianna Zarate Chlorpromazine - Hx Tablets 25mg 4 daily Unknown HCL 08/13/2014 Hydrocortisone - Hx Cream 1% prn Unknown 06/16/2016 Immunizations CPT Code Status Date Vaccine Lot # [id number] Given 06/21/2018 Influenza Vaccine Split Virus [place] [address] Given 06/20/2017 Influenza Virus Vaccine, Quadrivalent, Split, [id number] Preservative Free 73545 Given 06/16/2016 Influenza Virus Vaccine, Quadrivalent, Split, [id number] Preservative Free 83931 Given 06/14/2015 Zostavax [id number] 02766 Given 06/14/2015 Influenza Virus Vaccine, Quadrivalent, Split, [id number] Preservative Free 24595 Given 06/14/2015 Prevnar 13 [id number] 01487 Given 06/11/2014 Adacel or Boostrix, TDaP [id number] 32584 Given 06/11/2014 Influenza Vaccine Split Virus Preservative Free Im [id number] Use 82313 Given 07/28/2013 Flu, Split Virus 3Yrs [id number] 23946 Given 07/12/2012 Flu, Split Virus 3Yrs [id number] 92637 Given 08/22/2011 Flu, Split Virus 3Yrs [id number] 15189 Given 08/04/2010 Flu, Split Virus 3Yrs [id number] 80623 Given 09/22/2009 Flu, Split Virus 3Yrs [id number] 90323 Given 08/27/2008 Flu, Split Virus 3Yrs [id number] 01734 Given 08/29/2007 Flu, Split Virus 3Yrs [id number] 56360 Given 08/27/2006 Flu, Split Virus 3Yrs [id number] 49795 Given 03/06/2006 Pneumococcal Immunization [id number] 35731 Given 08/12/2004 Flu, Split Virus 3Yrs 06761 Given 02/10/2004 Td Immunization 33059 Given 08/01/2003 Flu, Split Virus 3Yrs Vital Signs Date Vital Result Comment 06/21/2018 BP Systolic 145 mmHg BP Diastolic 91 mmHg Heart Rate 68 /min Height 64 inches 5'4" Weight 146.00 lb BMI (Body Mass Index) 25.1 kg/m2 06/05/2018 BP Systolic 164 mmHg BP Diastolic 70 mmHg BP Systolic Recheck 138 mmHg BP Diastolic Recheck 82 mmHg Weight 151.00 lb with sneakers 04/30/2018 BP Systolic 158 mmHg BP Diastolic [...] Result H/L Range Note Laboratory test finding 06/14/2018 Magnesium 2.1 mg/dL 1.9-2.7 TSH (Thyroid Stim Horm) 2.59 mcIU/mL 0.34-5.60 T3 Free 3.00 pg/mL 2.5-3.9 Free T4 (Free Thyroxine) 0.78 ng/dL 0.61-1.12 Vitamin B12 > 1450 pg/mL High 180-914 1 CBC Auto Diff 06/14/2018 White Blood Count 8.5 10^3/uL 3.5-10.8 Red Blood Count 4.34 10^6/uL 4.00-5.40 Hemoglobin 13.5 g/dL Low 14.0-18.0 Hematocrit 39 % Low 42-52 Mean Corpuscular Volume 90 fL 80-94 Mean Corpuscular Hemoglobin 31 pg 27-31 Mean Corpuscular HGB Conc 35 g/dL 31-36 Red Cell Distribution Width 15 % 10.5-15 Platelet Count 294 10^3/uL 150-450 Mean Platelet Volume 8.5 um3 7.4-10.4 Abs Neutrophils 5.9 10^3/uL 1.5-7.7 Abs Lymphocytes 1.9 10^3/uL 1.0-4.8 Abs Monocytes 0.7 10^3/uL 0-0.8 Abs Eosinophils 0 10^3/uL 0-0.6 Abs Basophils 0 10^3/uL 0-0.2 Abs Nucleated RBC 0 10^3/uL Granulocyte % 69.4 % 38-83 Lymphocyte % 22.4 % Low 25-47 Monocyte % 8.2 % High 0-7 Eosinophil % 0 % 0-6 Basophil % 0 % 0-2 Nucleated Red Blood Cells % 0.1 Comp Metabolic Panel 06/14/2018 Sodium 137 mmol/L 135-145 Potassium 4.3 mmol/L 3.5-5.0 Chloride 106 mmol/L 101-111 Co2 Carbon Dioxide 25 mmol/L 22-32 Anion Gap 6 mmol/L 2-11 Glucose 94 mg/dL 70-100 Blood Urea Nitrogen 38 mg/dL High 6-24 Creatinine 1.18 mg/dL High 0.67-1.17 BUN/Creatinine Ratio 32.2 High 8-20 Calcium 9.4 mg/dL 8.6-10.3 Total Protein 6.6 g/dL 6.4-8.9 Albumin 3.4 g/dL 3.2-5.2 Globulin 3.2 g/dL 2-4 Albumin/Globulin Ratio 1.1 1-3 Total Bilirubin 0.50 mg/dL 0.2-1.0 Alkaline Phosphatase 89 U/L 34-104 Alt 29 U/L 7-52 Ast 29 U/L 13-39 Egfr Non- 59.2 >60 Egfr 71.7 >60 2 CBC Auto Diff 05/31/2018 White Blood Count 8.4 10^3/uL 3.5-10.8 Red Blood Count 4.33 10^6/uL 4.00-5.40 Hemoglobin 13.5 g/dL Low 14.0-18.0 Hematocrit 39 % Low 42-52 Mean Corpuscular Volume 90 fL 80-94 Mean Corpuscular Hemoglobin 31 pg 27-31 Mean Corpuscular HGB Conc 35 g/dL 31-36 Red Cell Distribution Width 15 % 10.5-15 Platelet Count 268 10^3/uL 150-450 Mean Platelet Volume 8.2 um3 7.4-10.4 Abs Neutrophils 5.3 10^3/uL 1.5-7.7 Abs Lymphocytes 2.1 10^3/uL 1.0-4.8 Abs Monocytes 1.0 10^3/uL High 0-0.8 Abs Eosinophils 0 10^3/uL 0-0.6 Abs Basophils 0 10^3/uL 0-0.2 Abs Nucleated RBC 0 10^3/uL Granulocyte % 62.6 % 38-83 Lymphocyte % 25.0 % 25-47 Monocyte % 12.0 % High 0-7 Eosinophil % 0 % 0-6 Basophil % 0.4 % 0-2 Nucleated Red Blood Cells % 0 Comp Metabolic Panel 05/31/2018 Sodium 136 mmol/L 135-145 Potassium 4.3 mmol/L 3.5-5.0 Chloride 106 mmol/L 101-111 Co2 Carbon Dioxide 26 mmol/L 22-32 Anion Gap 4 mmol/L 2-11 Glucose 103 mg/dL High 70-100 Blood Urea Nitrogen 34 mg/dL High 6-24 Creatinine 1.39 mg/dL High 0.67-1.17 BUN/Creatinine Ratio 24.5 High 8-20 Calcium 9.7 mg/dL 8.6-10.3 Total Protein 7.4 g/dL 6.4-8.9 Albumin 3.6 g/dL 3.2-5.2 Globulin 3.8 g/dL 2-4 Albumin/Globulin Ratio 0.9 Low 1-3 Total Bilirubin 0.40 mg/dL 0.2-1.0 Alkaline Phosphatase 87 U/L 34-104 Alt 29 U/L 7-52 Ast 23 U/L 13-39 Egfr Non- 49.0 >60 Egfr 59.3 >60 3 Laboratory test finding 05/18/2018 MRSA/S Aureus Ssti SEE RESULT BELOW 4, 5 PCR Wound Culture/Sensi 05/18/2018 Wound/Misc SEE RESULT BELOW 4, 6 Culture-Gram Stain Urine Culture And 05/18/2018 Urine Culture SEE RESULT BELOW 7, 8 Sensitivities Urine Culture And 05/01/2018 Urine Culture SEE RESULT BELOW 9, 10 Sensitivities Urine Micro Inhouse 04/30/2018 Ua WBC 5-10 Ua Epi Occ./0-2 Ua Other sperm Ua Specific Criders 1.025 Ua Blood moderate NH Ua PH 6.0 Ua Nitrite + Ua Leukocytes trace Culture Urine Inhouse 04/30/2018 Colonies 07/19 CBC Auto Diff 04/14/2018 White Blood Count [...] 26.0-36.3 PTT Lactic Acid 1.9 mmol/L 0.5-2.0 11 Comp Metabolic Panel 04/14/2018 Sodium 135 mmol/L [...] Egfr Non- 46.3 >60 Egfr 56.1 >60 12 Laboratory test finding 04/14/2018 C Reactive Protein 53.28 mg/L High < 8.01 Troponin-I (TnI) 1.23 ng/mL High <0.04 13 Urinalysis Profile 04/14/2018 Urine Color Yellow Urine Appearance Turbid Urine Specific Criders 1.015 1.010-1.030 Urine pH 7.0 5-9 Urine [...] Laboratory test 04/14/2018 B-Type Natriuretic 30 pg/mL 14 finding Peptide BNP Urine Culture And 04/14/2018 Urine Culture SEE RESULT 15 Sensitivities BELOW Laboratory test 04/14/2018 Blood Culture SEE RESULT 16 finding BELOW Laboratory test 07/23/2017 Vitamin D Total 86.2 ng/mL High 20-50 17, 18 finding 25(Oh) Comp Metabolic Panel 05/22/2017 Sodium 139 mmol/L 133-145 19 Potassium 4.1 mmol/L 3.5-5.0 19 Chloride 107 mmol/L 101-111 19 Co2 Carbon Dioxide 31 mmol/L 22-32 19 Anion Gap 1 mmol/L Low 2-11 19 Glucose 88 mg/dL 70-100 19 Blood Urea Nitrogen 29 mg/dL High 6-24 19 Creatinine 1.22 mg/dL High 0.67-1.17 19 BUN/Creatinine Ratio 23.8 High 8-20 19 Calcium 9.5 mg/dL 8.6-10.3 19 Total Protein 7.1 g/dL 6.4-8.9 19 Albumin 3.8 g/dL 3.2-5.2 19 Globulin 3.3 g/dL 2-4 19 Albumin/Globulin Ratio 1.2 1-3 19 Total Bilirubin 0.70 mg/dL 0.2-1.0 19 Alkaline Phosphatase 66 U/L 34-104 19 Alt 20 U/L 7-52 19 Ast 22 U/L 13-39 19 Egfr Non- 57.2 >60 19 Egfr 73.5 >60 19, 20 Laboratory test finding 05/22/2017 Magnesium 2.2 mg/dL 1.9-2.7 19, 21 TSH (Thyroid Stim Horm) 2.13 mcIU/mL 0.34-5.60 19, 22 T3 Free 3.10 pg/mL 2.5-3.9 19, 23 Free T4 (Free Thyroxine) 0.96 ng/dL 0.61-1.12 19, 24 Vitamin B12 1420 pg/mL High 180-914 19, 25 CBC Auto Diff 05/22/2017 White Blood Count 6.2 10^3/uL 3.5-10.8 19 Red Blood Count 5.32 10^6/uL 4.0-5.4 19 Hemoglobin 16.7 g/dL 14.0-18.0 19 Hematocrit 51 % 42-52 19 Mean Corpuscular Volume 95 fL High 80-94 19 Mean Corpuscular Hemoglobin 31 pg 27-31 19 Mean Corpuscular HGB Conc 33 g/dL 31-36 19 Red Cell Distribution Width 14 % 10.5-15 19 Platelet Count 221 10^3/uL 150-450 19 Mean Platelet Volume 9 um3 7.4-10.4 19 Abs Neutrophils 4.0 10^3/uL 1.5-7.7 19 Abs Lymphocytes 1.5 10^3/uL 1.0-4.8 19 Abs Monocytes 0.6 10^3/uL 0-0.8 19 Abs Eosinophils 0 10^3/uL 0-0.6 19 Abs Basophils 0 10^3/uL 0-0.2 19 Abs Nucleated RBC 0 10^3/uL 19 Granulocyte % 64.1 % 38-83 19 Lymphocyte % 24.9 % Low 25-47 19 Monocyte % 10.3 % High 1-9 19 Eosinophil % 0.4 % 0-6 19 Basophil % 0.3 % 0-2 19 Nucleated Red Blood Cells % 0 19 Laboratory test finding 07/19/2016 Surgical Pathology SEE RESULT BELOW 26 Lipid Profile 06/22/2016 Triglycerides 156 mg/dL 27, 28 (Trig/Chol/HDL) Cholesterol 209 mg/dL 27, 29 HDL Cholesterol 39.8 mg/dL 27, 30 LDL Cholesterol 138 mg/dL 27, 31 CBC Auto Diff 06/22/2016 White Blood Count 6.8 10^3/uL 3.5-10.8 27 Red Blood Count 5.54 10^6/uL High 4.0-5.4 27 Hemoglobin 16.7 g/dL 14.0-18.0 27 Hematocrit 49 % 42-52 27 Mean Corpuscular Volume 89 fL 80-94 27 Mean Corpuscular Hemoglobin 30 pg 27-31 27 Mean Corpuscular HGB Conc 34 g/dL 31-36 27 Red Cell Distribution Width 14 % 10.5-15 27 Platelet Count 239 10^3/uL 150-450 27 Mean Platelet Volume 9 um3 7.4-10.4 27 Abs Neutrophils 4.6 10^3/uL 1.5-7.7 27 Abs Lymphocytes 1.4 10^3/uL 1.0-4.8 27 Abs Monocytes 0.7 10^3/uL 0-0.8 27 Abs Eosinophils 0.1 10^3/uL 0-0.6 27 Abs Basophils 0 10^3/uL 0-0.2 27 Abs Nucleated RBC 0.01 10^3/uL 27 Granulocyte % 68.2 % 38-83 27 Lymphocyte % 20.1 % Low 25-47 27 Monocyte % 10.3 % High 1-9 27 Eosinophil % 1.3 % 0-6 27 Basophil % 0.1 % 0-2 27 Nucleated Red Blood Cells % 0.2 27 Comp Metabolic Panel 06/22/2016 Sodium 135 mmol/L 133-145 27 Potassium 4.0 mmol/L 3.5-5.0 27 Chloride 103 mmol/L 101-111 27 Co2 Carbon Dioxide 26 mmol/L 22-32 27 Anion Gap 6 mmol/L 2-11 27 Glucose 83 mg/dL 70-100 27 Blood Urea Nitrogen 23 mg/dL 6-24 27 Creatinine 1.08 mg/dL 0.67-1.17 27 BUN/Creatinine Ratio 21.3 High 8-20 27 Calcium 9.6 mg/dL 8.6-10.3 27 Total Protein 7.0 g/dL 6.4-8.9 27 Albumin 3.8 g/dL 3.2-5.2 27 Globulin 3.2 g/dL 2-4 27 Albumin/Globulin Ratio 1.2 1-3 27 Total Bilirubin 0.50 mg/dL 0.2-1.0 27 Alkaline Phosphatase 75 U/L 34-104 27 Alt 23 U/L 7-52 27 Ast 25 U/L 13-39 27 Egfr Non- 66.0 >60 27 Egfr 84.8 >60 27, 32 Laboratory test 06/22/2016 Vitamin D Total 70.7 ng/mL High 30-50 27, 33 finding 25(Oh) Laboratory test 03/20/2016 Magnesium 2.0 mg/dL 1.9-2.7 finding TSH (Thyroid Stim Horm) 3.57 ?IU/mL 0.34-5.60 T3 Free 3.00 pg/mL 2.5-3.9 Free T4 (Free Thyroxine) 0.87 ng/dL 0.61-1.12 Vitamin B12 > 1450 pg/mL High 180-914 34 Comp Metabolic Panel 03/20/2016 Sodium 135 mmol/L [...] Egfr Non- 66.7 >60 Egfr 85.7 >60 35 CBC Auto Diff 03/20/2016 White Blood Count [...] 0-2 Nucleated Red Blood Cells % 0.2 CBC Auto Diff 01/20/2016 White Blood Count [...] um3 7.4-10.4 Abs Neutrophils 4.5 10^3/uL 1.5-7.7 36 Abs Lymphocytes 1.7 10^3/uL 1.0-4.8 37 Abs Monocytes 0.7 10^3/uL 0-0.8 38 Abs Eosinophils 0.1 10^3/uL 0-0.6 39 Abs Basophils 0 10^3/uL 0-0.2 40 Abs Nucleated RBC 0.06 10^3/uL 41 Granulocyte % 64.5 % 38-83 Lymphocyte % 24.4 % Low 25-47 42 Monocyte % 9.4 % High 1-9 Eosinophil % 1.0 % 0-6 Basophil % 0.7 % 0-2 Nucleated Red Blood Cells % 0.9 Urinalysis Profile 01/20/2016 Urine Color Yellow Urine Appearance Clear Urine Specific Criders 1.017 1.010-1.030 Urine pH 6.0 5-9 Urine Urobilinogen Negative Negative Urine Ketones Negative Negative Urine Protein Negative Negative Urine Leukocytes Negative Negative Urine Blood Negative Negative Urine Nitrite Negative Negative Urine Bilirubin Negative Negative Urine Glucose Negative Negative Laboratory test finding 01/20/2016 Troponin-I (TnI) 0.01 ng/mL <0.03 43 Comp Metabolic Panel 01/20/2016 Sodium 132 mmol/L Low 133-145 Potassium 4.6 mmol/L 3.5-5.0 Chloride 103 mmol/L 101-111 Co2 Carbon Dioxide 23 mmol/L 22-32 Anion Gap 6 mmol/L 2-11 Creatinine 1.01 mg/dL 0.67-1.17 Calcium 9.5 mg/dL 8.6-10.3 Albumin 3.9 g/dL 3.2-5.2 Alkaline Phosphatase 64 U/L 34-104 Alt 24 U/L 7-52 Ast 32 U/L 13-39 Egfr Non- 71.3 >60 Egfr 91.6 >60 44 Glucose 100 mg/dL 70-100 Blood Urea Nitrogen 18 mg/dL 6-24 BUN/Creatinine Ratio 17.8 8-20 Total Protein 7.1 g/dL 6.4-8.9 Globulin 3.2 g/dL 2-4 Albumin/Globulin Ratio 1.2 1-3 Total Bilirubin 0.40 mg/dL 0.2-1.0 Laboratory test finding 01/20/2016 Lipase 29 U/L 11.0-82.0 C Reactive Protein 3.00 mg/L < 5.00 45 CBC Auto Diff 06/14/2015 White Blood Count [...] Blood Cells % 0.2 Comp Metabolic Panel 06/14/2015 Sodium 137 mmol/L [...] Egfr Non- 81.6 >60 Egfr 105.0 >60 46 Laboratory test finding 06/14/2015 TSH (Thyroid Stim Horm) 1.61 ?IU/mL 0.34-5.60 Quantiferon Gold TB 06/14/2015 M tuberculosis by Negative Negative Quantiferon Tuberculosis Antigen Value 0.00 IU/mL 47 Laboratory test finding 06/14/2015 Vitamin D Total [...] Egfr Non- 60.9 >60 Egfr 78.3 >60 48 Laboratory test finding 03/08/2015 Lipase 20 U/L 11.0-82.0 C Reactive Protein 2.57 mg/L < 5.00 49 Lactic Acid 1.7 mmol/L 0.5-2.2 Urinalysis Profile 03/08/2015 Urine Color Yellow Urine Appearance Clear Urine Specific Criders 1.011 1.010-1.030 Urine pH 6.0 5-9 Urine [...] Egfr Non- 59.1 >60 Egfr 76.0 >60 50 CBC Auto Diff 02/22/2015 White Blood Count [...] Lipid Profile (Trig/Chol/HDL) 11/25/2014 Triglycerides 216 mg/dL 51, 52 Cholesterol 154 mg/dL 51, 53 HDL Cholesterol 26.4 mg/dL 51, 54 LDL Cholesterol 84 mg/dL 51, 55 Comp Metabolic Panel 08/13/2014 Sodium 135 mmol/L [...] Egfr Non- 57.1 >60 Egfr 73.4 >60 56 Laboratory test finding 08/13/2014 C Reactive Protein 1.50 mg/L < 5.00 57 CBC Auto Diff 08/13/2014 White Blood Count [...] Cells % 0.4 Laboratory test finding 08/13/2014 Erythrocyte Sed Rate 5 mm/Hr 0-40 Laboratory test finding 06/20/2014 Free T3 2.80 pg/mL 2.5-3.9 58, 59 Free T4 0.84 ng/mL 0.61-1.12 58, 60 TSH (Thyroid Stimulating Horm) 2.50 IU/mL 0.34-5.60 58, 61 Laboratory test finding 03/06/2014 TSH (Thyroid Stimulating 2.58 IU/mL 0.34-5.60 Horm) T4 5.24 g/dL Low 6.09-12.23 Total T3 0.60 ng/mL Low 0.87-1.78 Lipid Profile (Trig/Chol/HDL) 12/29/2013 Triglycerides 139 mg/dL 62 Cholesterol 154 mg/dL 63 HDL Cholesterol 34.6 mg/dL 64 LDL Cholesterol 92 mg/dL 65 Laboratory test finding 12/29/2013 Ast 19 U/L [...] Egfr Non- 58.9 >60 Egfr 75.7 >60 66 Laboratory test finding 04/03/2013 TSH (Thyroid Stimulating 2.33 miu/mL 0.34-5.60 Horm) Comp Metabolic Panel 02/21/2013 Sodium 137 mmol/L [...] Egfr Non- 58.9 >60 Egfr 75.7 >60 67 CBC Auto Diff 02/21/2013 White Blood Count [...] 0-2 Nucleated Red Blood Cells % 0.3 Liver Function Panel 08/16/2012 Direct Bilirubin 0.1 mg/dL 0.1-0.5 Indirect Bilirubin 0.8 mg/dL 0.3-1.0 Lipid Profile (Trig/Chol/HDL) 08/16/2012 Triglycerides 115 mg/dL 40-200 Cholesterol 182 mg/dL Less than 200 68 HDL Cholesterol 37 mg/dL Low 40-60 69 Cholesterol/HDL Ratio 4.9 AVERAGE High 1-4.44 LDL [...] 1.3 1-3 Total Bilirubin 0.9 mg/dL 0.1-1.0 70 Alkaline Phosphatase 71 U/L 30-110 Alt 26 U/L 14-54 Ast 30 U/L 12-42 Egfr Non- 65.3 >60 Egfr 83.9 >60 71 Laboratory test finding 06/07/2012 Occult Blood - Stool neg x3 CBC Auto Diff 02/19/2012 White Blood Count [...] mmol/L 22-32 Anion Gap 5.0 mmol/L 2-11 72 Glucose 84 mg/dL 70-100 BUN 21 mg/dL 6-24 Creatinine 1.2 mg/dL 0.50-1.40 One Over Creatinine 0.83 BUN/Creatinine Ratio 17.5 8-20 Calcium 9.1 mg/dL 8.1-9.9 Total Protein 6.1 GM/DL Low 6.2-8.1 Albumin 3.5 GM/DL 3.2-5.2 Globulin 2.6 GM/DL 2-4 Albumin/Globulin Ratio 1.3 1-3 Bilirubin Total 0.9 mg/dL 0.4-1.5 73 Alkaline Phosphatase 65 U/L 39-117 Alt (SGPT) 23 U/L 17-63 Ast (Sgot) 28 U/L 12-42 eGFR Non- 59.0 > 60 eGFR 75.9 > 60 74 Liver Function Panel 02/19/2012 Bilirubin Direct 0.2 mg/dL 0.1-0.5 Indirect Bilirubin 0.7 mg/dL 0.3-1.0 75 Laboratory test finding 02/19/2012 TSH 3.99 MIU/ML [...] Eosinophils 0 0-0.6 Abs Basophils 0 0-0.2 76 Comp Metabolic Panel 03/02/2011 Sodium 137 mmol/L 135-145 Potassium 4.0 mmol/L 3.5-5.0 Chloride 107 mmol/L 101-111 Co2 (Carbon Dioxide) 26.0 mmol/L 22-32 Anion Gap 4.0 mmol/L 2-11 77 Glucose 136 mg/dL High 70-100 BUN 20 mg/dL 6-24 Creatinine 1.10 mg/dL 0.50-1.40 One Over Creatinine 0.90 BUN/Creatinine Ratio 18.2 8-20 Calcium 9.4 mg/dL 8.1-9.9 Total Protein 6.7 GM/DL 6.2-8.1 Albumin 3.6 GM/DL 3.2-5.2 Globulin 3.1 GM/DL 2-4 Albumin/Globulin Ratio 1.2 1-3 Bilirubin Total 1.1 mg/dL 0.4-1.5 78 Alkaline Phosphatase 66 U/L 39-117 Alt (SGPT) 30 U/L 17-63 Ast (Sgot) 30 U/L 12-42 eGFR Non- 65.4 > 60 eGFR 84.2 > 60 79 Laboratory test finding 03/02/2011 TSH 2.32 MIU/ML 0.34-5.60 Urine Culture & 03/02/2011 Urine Culture NG 80 Sensitivi Sensitivi Urinalysis 03/02/2011 Ua Color YELLOW Yellow Appearance-Urine CLEAR Clear Specific Criders-Ur 1.013 1.010-1.030 Esterase-Urine NEGATIVE Negative Nitrite NEGATIVE Negative [id number]-Hn-GDR NEGATIVE Negative Protein-Urine NEGATIVE Negative PH-Urine 5.5 5-9 Blood-Urine NEGATIVE Negative Ketones-Urine NEGATIVE Negative Bilirubin-Ur NEGATIVE Negative Glucose-Urine NEGATIVE Negative Comp Metabolic Panel 07/15/2010 Sodium 137 mmol/L 135-145 Potassium 3.8 mmol/L 3.5-5.0 Chloride 107 mmol/L 101-111 Co2 (Carbon Dioxide) 26.0 mmol/L 22-32 Anion Gap 4.0 mmol/L 2-11 81 Glucose 86 mg/dL 70-100 82 BUN 20 mg/dL 6-24 Creatinine 1.02 mg/dL 0.50-1.40 One Over Creatinine 0.90 BUN/Creatinine Ratio 19.6 8-20 Calcium 8.9 mg/dL 8.1-9.9 Total Protein 7.0 GM/DL 6.2-8.1 Albumin 3.7 GM/DL 3.2-5.2 Globulin 3.3 GM/DL 2-4 Albumin/Globulin Ratio 1.1 1-3 Bilirubin Total 0.9 mg/dL 0.4-1.5 83 Alkaline Phosphatase 67 U/L 39-117 Alt (SGPT) 30 U/L 17-63 Ast (Sgot) 32 U/L 12-42 eGFR Non- 76.1 > 60 eGFR 92.1 > 60 84 CBC With Manual Diff 07/15/2010 White Blood [...] mmol/L 22-32 Anion Gap 9.0 mmol/L 2-11 85 Glucose 87 mg/dL 70-100 86 BUN 21 mg/dL 6-24 Creatinine 1.00 mg/dL 0.50-1.40 One Over Creatinine 1.00 BUN/Creatinine Ratio 21.0 High 8-20 Calcium 8.8 mg/dL 8.1-9.9 Total Protein 6.6 GM/DL 6.2-8.1 Albumin 3.8 GM/DL 3.2-5.2 Globulin 2.8 GM/DL 2-4 Albumin/Globulin Ratio 1.4 1-3 Bilirubin Total 1.1 mg/dL 0.4-1.5 87 Alkaline Phosphatase 59 U/L 39-117 Alt (SGPT) 23 U/L 17-63 Ast (Sgot) 32 U/L 12-42 eGFR Non- 77.8 > 60 eGFR 94.2 > 60 88 Laboratory test finding 07/13/2010 PSA Screening 1.76 NG/ML 0-4 89 CBC With Electronic Diff 07/13/2010 White Blood [...] 4 % 0-6 Absolute Neutrophil Count 4.3 90 Anisocytosis SLIGHT Manual Diff Comments (SEE NOTE) 91 Comp Metabolic Panel 12/28/2008 Sodium 134 mmol/L Low 135-145 Potassium 4.4 mmol/L 3.5-5.0 Chloride 98 mmol/L Low 101-111 Co2 (Carbon Dioxide) 30.0 mmol/L 22-32 Anion Gap 6.0 mmol/L 2-11 92 Glucose 80 mg/dL 70-100 93 BUN 19 mg/dL 6-24 Creatinine 1.10 mg/dL 0.50-1.40 One Over Creatinine 0.90 BUN/Creatinine Ratio 17.3 8-20 Calcium 8.8 mg/dL 8.1-9.9 94 Total Protein 6.3 GM/DL 6.2-8.1 Albumin 3.4 GM/DL 3.2-5.2 Globulin 2.9 GM/DL 2-4 Albumin/Globulin Ratio 1.2 1-3 Bilirubin Total 0.8 mg/dL 0.4-1.5 Alkaline Phosphatase 64 U/L 39-117 Alt (SGPT) 19 U/L 17-63 Ast (Sgot) 23 U/L 12-42 Lipid Profile (Trig/Chol/HDL) 12/28/2008 Triglyceride 159 mg/dL 40-200 Cholesterol 167 mg/dL Less Than 200 95 High Density Lipoprotein 32 mg/dL Low 40-60 96 Low Density Lipoprotein 103 mg/dL High Less Than 100 97 Cholesterol/HDL Ratio 5.22 AVERAGE High 1-4.97 Laboratory test finding 12/28/2008 TSH 1.97 MIU/ML 0.34-5.60 Laboratory test finding 04/13/2008 TSH 2.03 MIU/ML 0.34-5.60 Lipid Profile (Trig/Chol/HDL) 04/13/2008 Triglyceride 222 mg/dL High 40- 200 Cholesterol 172 mg/dL Less Than 200 98 High Density Lipoprotein 31 mg/dL Low 40-60 99 Cholesterol/HDL Ratio 5.55 AVERAGE High 1-4.97 Low Density Lipoprotein 97 mg/dL Less Than 100 100 Liver Function Panel 04/13/2008 Total Protein 6.5 [...] 22-32 Anion Gap 1.0 mmol/L Low 2-11 101 Glucose 82 mg/dL 70-105 BUN 17 mg/dL 6-24 Creatinine 1.0 mg/dL 0.5-1.4 One Over Creatinine 1.00 BUN/Creatinine Ratio 17.0 8-20 Calcium 8.7 mg/dL 8.1-9.9 102 CBC With Electronic Diff 04/13/2008 White Blood [...] finding 04/13/2008 PSA Screening 3.03 NG/ML 0-4 103 Laboratory test finding 04/09/2008 Occult Blood - [...] CUMM 4.6-6.2 Redcell Distribution WDTH 14 % 10.-15 Laboratory test finding 06/06/2007 Occult Blood - Stool NEG.X3 Laboratory test finding 04/24/2007 TSH 1.53 MIU/ML 0.34-5.60 PSA Screening 1.36 NG/ML 0.01-4.0 104 CBC With Manual Diff 04/05/2007 White Blood [...] Creatinine 0.90 Anion Gap 4.0 mmol/L 2-11 105 Albumin/Globulin Ratio 1.4 1-3 Albumin 3.6 GM/DL [...] (Trig/Chol/HDL) Cholesterol 158 mg/dL Less Than 200 106 Triglyceride 140 mg/dL 40-200 High Density Lipoprotein 28 mg/dL Low 40-60 107 Low Density Lipoprotein 102 mg/dL High Less Than 100 108 Laboratory test finding 12/10/2006 PSA Screening 4.31 NG/ML High 0.01-4.0 109 Iron & Iron Binding Capacity 12/10/2006 Iron [...] Monocytes 2 Eosinophils 4 Absolute Neutrophils 6.8 Lipid Panel 03/24/2005 Cholesterol Total 184 Cholesterol/HDL Ratio 4.97 High Density Lipoprotein 37 LDL Low Density Lipoprotein 115 Triglycerides 160 Laboratory test finding 03/24/2005 TSH Thyroid Stimulating Horm 3.27 PSA Total 1.1 CBC With Electronic Diff 03/24/2005 White Blood Count 9.9 RBC Red Blood Count 5.28 Hemoglobin 15.7 Hematocrit 46 MCV (Corpuscular Volume) 88 MCH (Corpuscular Hemoglobin) 30 MCHC (Corpuscular Hemog Conc) 34 RDW 14 Platelet Count 215 MPV 8.8 Eosinophils 0 Basophils 0.1 Absolute Basophils 0 Absolute Eosinophils 0 Absolute Lymphocytes 4.4 Absolute Monocytes 0.7 CMP Panel 03/24/2005 Albumin 3.5 Alt - [...] 31 BUN - Urea Nitrogen 17 1 Normal Range 180 to 914 Indeterminate Range 145 to 180 Deficient Range <145 2 Because ethnic data is not always [...] 5 Kidney failure <15 (or dialysis) 3 Because ethnic data is not always readily [...] 15-29 5 Kidney failure <15 (or dialysis) 4 [id number] Comment: urethra 5 SEE RESULT BELOW Name: CORTNEYTONIALEYLA : [address]: Binh Lee MD Acct: [id number] Unit: [id number] AGE: 83 Location: [facility] Re05/18/18 SEX: M Status: DEP ER SPEC: [id number] LAVERN: 05/18/18-[address] [facility] [address]: Maru BOOTHE REQ: [id number] RECD: 05/18/18 STATUS: SHAHEED OSLANO DR: Elliot Cornelius MD _ SOURCE: PERINEUM SPDESC: ORDERED: MRSA/SA SSTI, Culture Stain COMMENTS: [id number] Comment: urethra Procedure Result Reported Site MRSA/S. aureus SSTI PCR Final 05/18/18- 2220 ML Organism 1 MRSA NEGATIVE Organism 2 S.AUREUS NEGATIVE Wound/Misc Gram Stain Final 05/19/18- 0741 ML 2+ Epithelial Cells 3+ Nucleated Cells 1+ Gram Positive Cocci Wound/Misc Culture Final 05/20/18- 1003 ML Organism 1 NORMAL SARA Quantity 1+ * ML - Main Lab . END OF REPORT DEPARTMENT OF PATHOLOGY, [address] [place] [address] Jeronimo Santos M.D. Director [facility] # [id number] 6 SEE RESULT BELOW Name: LEYLA CARRANZA : [address]: Binh Lee MD Acct: [id number] Unit: [id number] AGE: 83 Location: [facility] Re05/18/18 SEX: M Status: DEP ER SPEC: [id number] LAVERN: 05/18/18-[address] [facility] [address]: Maru BOOTHE REQ: [id number] RECD: 05/18/18 STATUS: RES [facility] DR: Elliot Cornelius MD _ SOURCE: PERINEUM SPDESC: ORDERED: Culture Stain COMMENTS: [id number] Comment: urethra Procedure Result Reported Site Wound/Misc Gram Stain Preliminary 05/18/18- 1756 ML 3+ Epithelial Cells 1+ Nucleated Cells 1+ Gram Positive Cocci Wound/Misc Culture PENDING * ML - Main Lab . END OF REPORT DEPARTMENT OF PATHOLOGY, [address] [place] [address] Jeronimo Santos M.D. Director [facility] # [id number] 7 [id number] 8 SEE RESULT BELOW Name: LEYLA CARRANZA : [address]: Binh Lee MD Acct: [id number] Unit: [id number] AGE: 83 Location: [facility] Re05/18/18 SEX: M Status: DEP ER SPEC: [id number] LAVERN: 05/18/18-[address]: Maru BOOTHE REQ: [id number] RECD: 05/18/188 STATUS: SHAHEED SOLANO DR: Elliot Cornelius MD _ SOURCE: URINE SPDESC: ORDERED: Urine Culture COMMENTS: [id number] Procedure Result Reported Site Urine Culture Final 05/19/18- 1309 ML No Growth (<1,000 CFU/mL) * ML - Main Lab . END OF REPORT DEPARTMENT OF PATHOLOGY, [address] [place] [address] Jeronimo Santos M.D. Director [facility] # [id number] 9 [id number] 10 SEE RESULT BELOW Name: LEYLA CARRANZA : [address]: Sandoval Davila MD Acct: [id number] Unit: [id number] AGE: 83 Location: [facility] Re05/01/18 SEX: M Status: REG REF SPEC: [id number] LAVERN: 05/01/18-[address] [place] [address] DR: Sandoval Davila MD REQ: [id number] RECD: 05/01/18-4847 STATUS: SHAHEED SOLANO DR: Elliot Rivera DO _ SOURCE: URINE [facility]: ORDERED: Urine Culture COMMENTS: [id number] QUERIES: Urine Source: Catheterization Procedure Result Reported Site Urine Culture Final 05/03/18- 0858 ML Organism 1 KLEBSIELLA PNEUMONIAE Parker Count 25-50,000 (Moderate) CFU/ML 1. KLEBSIELLA PNEUMONIAE M.I.C. RX --------- ------ Ampicillin >=32 R Cefazolin <=4 S Cefepime <=1 S Ceftriaxone <=1 S Ciprofloxacin <=0.25 S Gentamicin <=1 S Levofloxacin 1 S Meropenem <=0.25 S Nitrofurantoin 64 I Tetracycline >=16 R Pipercillin/Tazobactam 32 I Trimethoprim/Sulfamethoxazole <=20 S Amoxicillin/Clavulanic Acid 4 S Aztreonam <=1 S Contact the Microbiology Department for any additional antibiotic reporting. * ML - Main Lab . END OF REPORT DEPARTMENT OF PATHOLOGY, [address] [place] [address] Jeronimo Santos M.D. Director [facility] # [id number] 11 [facility] Severe Sepsis and Septic Shock Management Bundle Measure requires all lactic acids initially measuring >2.0 mmol/L be repeated. 12 Because ethnic data is not always readily [...] 15-29 5 Kidney failure <15 (or dialysis) 13 Result TnIDx:1.23 Called to [id number] at: 12:57:03 by:[id number] Read back by: [id number] 14 >100 to <200 pg/mL: likely compensated congestive heart failure (CHF) 200 to 400 pg/mL: likely moderate CHF >400 pg/mL: likely moderate to severe CHF 15 SEE RESULT BELOW Name: LEYLA CARRANZA : [address]: Ashly Jeter MD Acct: [id number] Unit: [id number] AGE: 83 Location: [place] [address] Re04/14/18 SEX: M Status: ADM IN SPEC: [id number] LAVERN: 04/14/18-[address] [facility] [address]: Dain Bernstein MD REQ: [id number] RECD: 04/14/18 STATUS: SHAHEED SOLANO DR: Elliot Rivera DO _ SOURCE: URINE [facility]: ORDERED: Urine Culture Procedure Result Reported Site Urine Culture Final 04/16/18- 0839 ML Organism 1 ENTEROCOCCUS FAECALIS Parker Count 50-75,000 (Many) CFU/ML 1. ENTEROCOCCUS FAECALIS M.I.C. RX --------- ------ Ampicillin <=2 S Penicillin 2 S Ciprofloxacin 1 S Gentamicin High Level S Levofloxacin 1 S Linezolid 2 S Nitrofurantoin <=16 S * Quinupristin/Dalfopristin R * Streptomycin High Level S Tetracycline >=16 R Tigecycline <=0.12 S Vancomycin 2 S Imipenem-Deduced S * Ampicillin/Sulbactam-Deduced S * These antibiotics are not available in the [facility] Formulary Contact the Microbiology Department for any additional antibiotic reporting. * ML - [facility] . END OF REPORT DEPARTMENT OF PATHOLOGY, [address] [place] [address] Jeronimo Santos M.D. Director [facility] # [id number] 16 SEE RESULT BELOW Name: LEYLA CARRANZA : [address]: Ash Mcdermott MD Acct: [id number] Unit: [id number] AGE: 83 Location: [place] [address] Re04/14/18 Dis: 04/18/18 SEX: M Status: DIS IN SPEC: [id number] LAVERN: 04/14/18-[address] [facility] [address]: Dain Bernstein MD REQ: [id number] RECD: 04/14/183 STATUS: SHAHEED [facility] DR: Elliot Rivera DO _ SOURCE: BLOOD,VENO SPDESC: ORDERED: Blood Cult Procedure Result Reported Site Aerobic Culture Bottle Final 04/19/18- 1215 ML No Growth Day 5 Anaerobic Culture Bottle Final 04/19/18- 1215 ML No Growth Day 5 * ML - Main Lab . END OF REPORT DEPARTMENT OF PATHOLOGY, [address] [place] [address] Jeronimo Santos M.D. Director [facility] # [id number] 17 [id number] 19 [id number] 20 Because ethnic data is not always readily [...] 15-29 5 Kidney failure <15 (or dialysis) 21 [id number] 23 [id number] Normal Range 180 to 914 Indeterminate Range 145 to 180 Deficient Range <145 26 SEE RESULT BELOW Name: LEYLA CARRANZA : [address]: Elliot Rivera DO Acct: [id number] Unit: [id number] AGE: 81 Location: [facility] Re07/19/16 SEX: M Status: REG REF SPEC: [id number] LAVERN: 07/19/[address] [facility] [address]: Elliot Rivera DO REQ: [id number] RECD: 07/20/160125 STATUS: SOUT _ ORDERED: LEVEL IV COMMENTS: [id number] FINAL DIAGNOSIS Skin, left ankle, biopsy: -- [...] performed at Main Lab DEPARTMENT OF PATHOLOGY, [address] [place] [address] Jeronimo Santos M.D. Director [facility] # [id number] 27 [id number] 28 Desirable <150 Borderline high 150-199 High 200-499 Very High >500 29 Desirable <200 Borderline high 200-239 High >239 30 Low <40 Desirable: 40-60 High: >60 31 Desirable: <100 mg/dL Near Optimal: 100-129 mg/dL Borderline High: 130-159 mg/dL High: 160-189 mg/dL Very High: >189 mg/dL 32 Because ethnic data is not always readily [...] 15-29 5 Kidney failure <15 (or dialysis) 33 [id number] 34 Normal Range 180 to 914 Indeterminate Range 145 to 180 Deficient Range <145 35 Because ethnic data is not always readily [...] 15-29 5 Kidney failure <15 (or dialysis) 36 Consistent with previous results on 08/16/15. 37 Consistent with previous results on 08/16/15. 38 Consistent with previous results on 08/16/15. 39 Consistent with previous results on 08/16/15. 40 Consistent with previous results on 08/16/15. 41 --- 01/20/16 1352 --- ABS NRBC previously reported as: 0.06 10 3/ul Consistent with previous results on 08/16/15. 42 Consistent with previous results on 08/16/15. 43 Reference Range and Interpretation: TnI (ng/mL) Interpretation Less Than 0.03 ng/mL Not supportive of diagnosis of [place] 0.03 - 0.50 ng/mL Indeterminate: suggest serial studies if clinically indicated. Greater than 0.5 ng/mL Consistent with diagnosis of [place] 44 Because ethnic data is not always readily [...] 15-29 5 Kidney failure <15 (or dialysis) 45 Acute inflammation: >10.00 46 Because ethnic data is not always [...] 5 Kidney failure <15 (or dialysis) 47 ADDITIONAL INFORMATION This is a qualitative test. [...] when interpreting QuantiFERON-TB results. Test Performed by: [place] [address] Treating Plant Supervisor: Max Hoffman II, M.D., Ph.D. 48 Because ethnic data is not always readily [...] 15-29 5 Kidney failure <15 (or dialysis) 49 Acute inflammation: >10.00 50 Because ethnic data is not always readily [...] 15-29 5 Kidney failure <15 (or dialysis) 51 SULTANA STEPHENS 52 Desirable <150 Borderline high 150-199 High [...] 5 Kidney failure <15 (or dialysis) 57 Acute inflammation: >10.00 58 with next lab draw 59 with next lab draw 60 with next lab draw 61 with next lab draw 62 Desirable <150 Borderline high 150-199 High 200-499 Very High >500 63 Desirable <200 Borderline high 200-239 High >239 64 Low <40 Desirable: 40-60 High: >60 65 Desirable <100 Near Optimal 100-129 Borderline high 130-159 High 160-189 Very High >189 66 Because ethnic data is not always readily [...] 15-29 5 Kidney failure <15 (or dialysis) 67 Because ethnic data is not always readily [...] 15-29 5 Kidney failure <15 (or dialysis) 68 Desirable: Less than 200 MG/DL Borderline-High Risk: 200-239 MG/DL High-Risk: 240 MG/DL and over 69 HDL Interpretation: Undesirable: High Risk: Less than 40 MG/DL Desirable: Low Risk: Greater than 60 MG/DL 70 A metabolite of Naproxen, O-desmethylnaproxen, has been shown to interfere with the Jendrassik-Yenifer method for measuring total bilirubin. Samples from patients who have taken Naproxen have shown spurious elevation in total bilirubin levels. 71 Because ethnic data is not always readily [...] 15-29 5 Kidney failure <15 (or dialysis) 72 Anion gap measurement may be of limited value in the presence of any alkalosis, especially in a combined acid base disorder. . 73 A metabolite of Naproxen, O-desmethylnaproxen, has been shown to interfere with the Jendrassik-Tullos method for measuring total bilirubin. Samples from [...] 5 Kidney failure <15 (or dialysis) 75 Please note updated reference range, effective 05/05/10 76 Lymphopenia % 77 Anion gap measurement may be of limited value in the presence of any alkalosis, especially in a combined acid base disorder. . 78 A metabolite of Naproxen, O-desmethylnaproxen, has been shown to interfere with the Jendrassik-Tullos method for measuring total bilirubin. Samples from [...] 5 Kidney failure <15 (or dialysis) 80 FINAL: NO GROWTH DAY 2 (<1,000 CFU/mL) 81 Anion gap measurement may be of limited value in the presence of any alkalosis, especially in a combined acid base disorder. . 82 Note change in reference range as of 06/04/08. The change was based on recommendations from the [place] [employer]. 83 A metabolite of Naproxen, O-desmethylnaproxen, has been shown to interfere with the Jendrassik-Yenifer method for measuring total bilirubin. Samples from patients who have taken Naproxen have shown spurious elevation in total bilirubin levels. 84 Because ethnic data is not always readily [...] 15-29 5 Kidney failure <15 (or dialysis) 85 Anion gap measurement may be of limited value in the presence of any alkalosis, especially in a combined acid base disorder. . 86 Note change in reference range as of 06/04/08. The change was based on recommendations from the [place] [employer]. 87 A metabolite of Naproxen, O-desmethylnaproxen, has been shown to interfere with the Jendrassik-Yenifer method for measuring total bilirubin. Samples from patients who have taken Naproxen have shown spurious elevation in total bilirubin levels. 88 Because ethnic data is not always readily [...] 15-29 5 Kidney failure <15 (or dialysis) 89 * SERUM LEVELS OF PSA MEASURED USING THE [employer] ACCESS HYBRITECH IMMUNOASSAY SHOULD NOT BE INTERPRETED ABSOLUTE EVIDENCE OF THE PRESENCE OR ABSENCE OF DISEASE. THE PSA VALUE SHOULD BE USED IN CONJUNCTION WITH OTHER PERTINENT CLINICAL DIAGNOSTIC PROCEDURES. 90 CORRECTED RESULT! WRONG RESULT WAS 0 91 CBC and smear reviewed. Inverted PMN/lymph ratio noted. No blasts seen. REVIEWED BY JERONIMO SANTOS MD 92 Anion gap measurement may be of limited value in the presence of any alkalosis, especially in a combined acid base disorder. . 93 Note change in reference range as of 06/04/08. The change was based on recommendations from the [place]. 94 Please note change in reference range effective 08 . 95 CHOLESTEROL INTERPRETATION: Desirable: Less than 200 MG/DL Borderline-High Risk: 200-239 MG/DL High-Risk: 240 MG/DL and over 96 HDL INTERPRETATION: Undesirable: High Risk: Less than 40 MG/DL Desirable: Low Risk: Greater than 60 MG/DL 97 LDL INTERPRETATION: Low Risk Optimal Level: LDL Less than 100 MG/DL Near or Above Optimal: LDL 100-129 MG/DL Borderline High Risk: LDL 130-159 MG/DL High Risk: LDL 160-189 MG/DL Very High Risk: LDL Greater than 189 MG/DL 98 CHOLESTEROL INTERPRETATION: Desirable: Less than 200 MG/DL Borderline-High Risk: 200-239 MG/DL High-Risk: 240 MG/DL and over 99 HDL INTERPRETATION: Undesirable: High Risk: Less than 40 MG/DL Desirable: Low Risk: Greater than 60 MG/DL 100 LDL INTERPRETATION: Low Risk Optimal Level: LDL Less than 100 MG/DL Near or Above Optimal: LDL 100-129 MG/DL Borderline High Risk: LDL 130-159 MG/DL High Risk: LDL 160-189 MG/DL Very High Risk: LDL Greater than 189 MG/DL 101 Anion gap measurement may be of limited value in the presence of any alkalosis, especially in a combined acid base disorder. . 102 Please note change in reference range effective 08 . 103 * SERUM LEVELS OF PSA MEASURED USING THE [employer]RLIN[employer] ACCESS HYBRITECH IMMUNOASSAY SHOULD NOT BE INTERPRETED ABSOLUTE EVIDENCE OF THE PRESENCE OR ABSENCE OF DISEASE. THE PSA VALUE SHOULD BE USED IN CONJUNCTION WITH OTHER PERTINENT CLINICAL DIAGNOSTIC PROCEDURES. 104 * SERUM LEVELS OF PSA MEASURED USING THE [employer]RLINDA [employer] ACCESS HYBRITECH IMMUNOASSAY SHOULD NOT BE INTERPRETED ABSOLUTE EVIDENCE OF THE PRESENCE OR ABSENCE OF DISEASE. THE PSA VALUE SHOULD BE USED IN CONJUNCTION WITH OTHER PERTINENT CLINICAL DIAGNOSTIC PROCEDURES. 105 Anion gap measurement may be of limited value in the presence of any alkalosis, especially in a combined acid base disorder. . 106 Classification: Desirable . 107 Classification: Low . 108 CALCULATED LDL APPROXIMATES THE VALUE OF A DIRECT LDL MEASUREMENT. Classification: Near or above optimal . 109 * SERUM LEVELS OF PSA MEASURED USING THE [employer]DA [employer] ACCESS HYBRITECH IMMUNOASSAY SHOULD NOT BE INTERPRETED ABSOLUTE EVIDENCE OF THE PRESENCE OR ABSENCE OF DISEASE. THE PSA VALUE SHOULD BE USED IN CONJUNCTION WITH OTHER PERTINENT CLINICAL DIAGNOSTIC PROCEDURES. Procedures Date CPT Code Description Status Comment 06/21/2018 79114 Electrocardiogram Complete Completed 01/05/2017 34764 Remove Impact Cerumen Requiring Completed Instrument, Unilateral 07/19/2016 77235 Biopsy Skin Lesion Single Completed 02/21/2016 51558 Electrocardiogram Complete Completed 07/12/2012 68356 Remove Impact Cerumen Requiring Completed Instrument, Unilateral 05/02/2012 58781 Remove Impact Cerumen Requiring Completed Instrument, Unilateral 04/27/2011 33525 Remove Impact Cerumen Requiring Completed Instrument, Unilateral 04/19/2011 20827 Remove Impact Cerumen Requiring Completed Instrument, Unilateral 04/12/2011 25516 Remove Impact Cerumen Requiring Completed Instrument, Unilateral 07/01/2007 89347 Remove Impact Cerumen Requiring Completed Instrument, Unilateral 09/14/2006 Colonoscopy Completed Document: 09/14/06 - DR Mejia update in [address] mejia recommends no repeat colonoscopy unless symptoms require it Encounters Type Date Location Provider CPT E/M Dx Office Visit 06/21/2018 9:15a Main Office Elliot Rivera D.O. 80989 I10 R01.1 Z00.01 L40.0 E03.9 I70.0 G40.89 G51.0 F73 K59.00 W22.8xxA F41.9 K40.30 Z23 Z41.8 Office Visit 06/05/2018 10:40a [place] [address] S70.02xD W06.xxxD I10 Office Visit 04/30/2018 4:45p Main Office Liang Banuelos M.D. 77045 R53.83 R63.0 A41.81 Office Visit 04/23/2018 1:40p Main Office Tristian Marks 44727 N40.1 A41.81 E03.9 I10 Office Visit 02/12/2017 1:45p Main Office Elliot Rivera D.O. 13259 J30.9 Office Visit 01/09/2017 9:45a Main Office Elliot Rivera D.O. 83173 K40.30 Office Visit 01/05/2017 1:30p Main Office Elliot Rivera D.O. 02045 H61.22 J30.9 Office Visit 12/19/2016 1:30p Main Office Elliot Rivera D.O. 80497 L40.0 I10 Office Visit 07/28/2016 2:30p Main Office Elliot Rivera D.O. 92126 D18.01 Office Visit 05/30/2016 9:45a Main Office Elliot Rivera D.O. 91192 I10 L40.0 R01.1 Office Visit 03/30/2016 11:45a Main Office Elliot Rivera D.O. 77680 E03.9 G40.89 R01.1 Office Visit 03/16/2016 1:30p Main Office Elliot Rivera D.O. 64201 R60.1 E03.9 G51.0 I70.0 Office Visit 02/21/2016 2:30p Main Office Elliot Rivera D.O. 33715 K40.90 I70.0 G51.0 G40.89 E03.9 R94.31 Office Visit 01/24/2016 4:45p Main Office Elliot Rivera D.O. 46636 G40.89 Office Visit 11/05/2015 1:45p Main Office Max Whitlock M.D. 12537 J20.9 Office Visit 10/01/2015 4:15p Main Office Max Whitlock M.D. 08108 J06.9 Office Visit 08/18/2015 2:45p Main Office Elliot Rivera D.O. 11907 S97.109A J06.9 W22.8xxA Office Visit 03/15/2015 11:15a Main Office Elliot Rivera D.O. 84352 440.0 603.9 553.20 Office Visit 08/14/2014 10:15a Main Office Elliot Rivera D.O. 46366 351.0 375.15 Office Visit 03/16/2014 12:55p Main Office Elliot Rivera D.O. 09892 564.00 318.2 783.21 Office Visit 12/29/2013 9:30a Main Office Elliot Rivera D.O. 79973 110.4 Office Visit 07/28/2013 1:30p Main Office Liang Banuelos M.D. 40913 372.72 v07.2 v04.81 Office Visit 06/09/2013 10:45a Main Office Max Whitlock M.D. 06280 477.0 600.00 564.00 696.1 244.9 318.2 V70.0 Office Visit 03/13/2013 10:45a Main Office Max Whitlock M.D. 41582 550.90 782.3 318.2 477.0 244.9 600.00 Office Visit 03/07/2013 11:00a Main Office Max Whitlock M.D. 98943 782.3 Office Visit 07/30/2012 3:20p Main Office Tristian Marks 77627 696.8 Office Visit 07/12/2012 11:15a Main Office Max Whitlock M.D. 45458 380.4 684 V65.49 v04.81 v07.2 Office Visit 06/07/2012 10:45a Main Office Max Whitlock M.D. 10998 V77.91 244.9 564.00 477.0 318.2 V70.0 V76.51 Office Visit 05/02/2012 10:20a Main Office Tristian Marks 95626 380.4 318.2 V41.2 Office Visit 04/05/2012 10:20a Main Office Tristian Marks 68359 380.4 Office Visit 03/21/2012 1:45p Main Office Max Whitlock M.D. 06449 892.0 707.00 Office Visit 07/04/2011 12:55p Main Office Max Whitlock M.D. 39945 784.7 380.4 V72.83 Office Visit 06/13/2011 4:30p Main Office Max Whitlock M.D. 55045 681.00 Office Visit 06/06/2011 2:45p Main Office Max Whitlock M.D. 46874 244.9 696.1 564.00 477.0 318.2 V65.49 V70.0 Office Visit 05/01/2011 4:20p Main Office Tristian Marks 53846 682.8 Office Visit 03/09/2011 2:00p Main Office Max Whitlock M.D. 00455 780.79 244.9 784.7 696.1 Office Visit 08/04/2010 4:20p Main Office Tristian Marks 46932 V04.81 681.02 Office Visit 05/20/2010 10:15a Main Office Max Whitlock M.D. 86839 244.9 564.00 477.0 696.1 600.00 318.2 V70.0 V76.51 V76.44 Office Visit 04/19/2009 1:30p Main Office Max Whitlock M.D. 08140 244.9 564.00 477.0 696.1 600.00 318.2 Office Visit 11/23/2008 1:10p Main Office Max Whitlock M.D. 77355 920 782.1 Office Visit 04/09/2008 9:05a Main Office Max Whitlock M.D. 60851 244.9 272.4 564.00 477.0 696.1 600.00 318.2 V76.51 V76.44 V70.0 Office Visit 07/01/2007 3:00p Main Office Max Whitlock M.D. 85039 380.4 564.00 564.0 Office Visit 04/08/2007 12:55p Main Office Max Whitlock M.D. 86360 244.9 477.0 696.1 600.00 564.00 564.0 V76.44 318.2 V76.51 V70.0 Office Visit 06/19/2006 5:00p Main Office Max Whitlock M.D. 58886 372.03 Office Visit 03/06/2006 2:30p Main Office Max Whitlock M.D. 12460 244.9 696.1 477.0 600.00 600.0 796.4 318.2 V70.0 V76.51 564.0 V07.2 V03.82 Office Visit 02/23/2005 3:00p Main Office bridgett 45023 460 Office Visit 02/10/2004 2:30p Main Office Max Whitlock M.D. 74132 244.9 V06.5 318.2 600.00 600.0 696.1 477.0 Office Visit 09/29/2003 5:00p Main Office Max Whitlock M.D. 36185 461.9 Plan of Care Future Appointment(s):06/25/2019 1:30 pm - Elliot Rivera D.O. 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
--- OUTSIDE RECORDS SUMMARY | 2018-06-23 09:23 | XMS REPORT ---
:1935 External Reference #:[id number] Author Organization [facility] Address [address] [place] [address] Phone [phone] Care Team Providers Name Role Phone HCP given Primary Care Physician Unavailable Payers Type Date Identification Numbers Payment Provider Subscriber Medicare Primary Policy Number: [id number] [facility] Leyla Carranza Services PayID: [id number] [facility] [address] Policy Number: [id number] Medicaid Leyla Carranza Group Name: 2 [address] [facility] PayID: [id number] [place] [address] Problems Date Description Provider Status Onset: 02/10/2004 [...] Smoke-Free Home is smoke-free General Resident of [facility] Cigarette Use Denies Cigarette Use Cigarette Use 07/04/2011 Tobacco Of Any Kind Denies Use ETOH Use Denies alcohol use Smoking Non Smoker / No Tobacco Exercise Type/Frequency Exercises sporadically Allergies, Adverse Reactions, Alerts Date Description Reaction Status Severity Comments 03/02/2005 Augmentin REACTION UNKNOWN WAS ON FILE ON ADM active TO [facility] Medications Medication Date Status Form Strength Qnty SIG Indications Ordering Provider Systane Ultra 05/15 Active Solution 0.4-0.3% 75uni 1 drop both , Preserv ts eyes as Elliot, Free needed D.O. every 4 hours for dry eyes Lipitor 05/07 Active Tablets 80mg 30tab 80 MG PO E78.4 [facility] s 1700 Elliot, D.O. Metoprolol 04/18 Active Tablets 25mg 1 by mouth Unknown twice a day Tamsulosin HCL 04/18 Active Capsules 0.4mg 1 by mouth Unknown every day Lactulose 04/18 Active Solution 10GM/15ML 750ml use as Silcoff, directed Liang (with goal M.D. of having 2 soft bms/day) 30 milliliters daily Chlorhexidine 04/18 Active Solution 0.12% 1 oral dose Unknown Gluc bid Proscar 04/18 Active Tablets 5mg 30tab 5 MG PO Sopcha s Daily Elliot, D.O. Miralax 03/21 Active [...] Nasal 03/15 Active Solution 0.65% 44ml instill [facility], into each Elliot, nostril D.O. daily Cerave 02/05 Active Cream 453un Apply To its Body Twice Elliot, Daily (Dry D.O. Skin) Am=After Bath/ PM=Before Bed Claritin 10MG 10/25 Active 30uni Take 1 [facility] ts Tablet By Elliot, Mouth Every D.O. Day (For Allergies) Chlorpromazine 09/22 Active Tablets 25mg 1 tablet po V40.3 Unknown in the evening at bedtime Colace 100MG 09/12 Active 120un Take 2 K59.01 its Capsules By Elliot, Mouth Twice D.O. A Day (Stool Softening) Clonazepam 06/15 Active Tablets 0.25mg 1 in the Dispers morning crushed Chlorpromazine 06/15 Active Tablets 25mg 1 by mouth Endo, HCL every Leyla, evening PhD Carave 06/15 Active QS apply t [facility], Moisturizing legs & body Elliot, Cream 2xdaily in D.O. the morning & at night Guaifenesin 06/15 Active Liquid 100mg/5ML 2 tsp po every 4 hrs prn Ducodyl 06/[address] 5mg 10mg on day 2 if no BM Tylenol Supp 06/15 Active Insert 1 rectally every 4 hrs prn temp >101 Hydrocortisone 06/15 Active Cream 0.2% apply to Unknown Val facial lesions bid prn dryness, itching or redness Farber Saline 06/13 Active Gel 14.1u Apply , nits Inside Elliot, Nostrils D.O. Twice Daily (Dryness) Fleet Enema 04/20 Active Enema 7-19GM/11 665un Insert 1 8ML its Rectally On Elliot, Day 3 Of No D.O. Bowel Movement [...] bs tabs po A. every 4 h gwendolyn Whitlockn muscle M.D. aches or discomfort Antacid 09/30 Active Suspension 200-200-2 Unknown Anti-Gas 0mg/5ML Mineral Oil 09/30 Active Oil instill 3 gtts in each ear tid and flush every third day prn Vitamin A & D 09/30 Active Oint ointment Unknown prn Desitin 09/30 Active Ointment prn Vitamin D-3 06/28 Active Tablets 5000Unit 90tab 1 tab by s mouth every Elliot, day or 7 D.O. tabs once a week Multi 05/12 Active Tablets 90tab 1 po daily. Sopcarmenk, Complete/Iron s Elliot, D.O. Humira 03/11 Active PSKT 40mg/0.8M subq inj Unknown L every other week as directed Triamcinolone 08/13 Active Ointment 0.1% 454un [facility], Acetonide its daily for 2 Elliot, weeks D.O. alternating with diprolene ,not to face or folds (refer to rx#[id number] ) Peridex 0.12% 06/04 Active 473un Swab 1 [facility], Oral Rinse its Teaspoon On Elliot, Gums Twice D.O. Daily For Oral Care Nasal Moist Gel 02/02 Active Gel QS apply to [facility] inside of Elliot, nose 2 x a D.O. day # 90 day supply. Tar Soaks 02/19 Active twice a L40.0 Tangoren, week MD Nichole Diprolene 02/19 Active Ointment 0.05% 45uni Apply To L40.0 [facility] ts Affected Elliot, Areas Twice D.O. Daily Times 2 Weeks Alternating With Triamcinolo ne, Not To Face Or Folds Vectical 02/19 Active Ointment 3mcg/GM 100un Apply To L40.0 [facility], its Legs Twice Elliot, Daily After D.O. Bath & Before Bed. (Psoriasis) Enulose 07/07 Active Solution 10GM/15ML 950un 2 K59.01 [facility] its tablespoon Elliot, every day D.O. Diapers Adult 06/27 Active 100un :Adult its Medium A. Pull-Up Due Bridgett, To Leakage M.D. Topiramate 06/05 Active Tablets 25mg 60tab take 1 tab [facility] s twice a day Elliot, after meals D.O. Klonopin 03/05 Active Tablets 0.5mg 20tab 1 at bed Silco s time Yohannes Tavera Tylenol 11/28 Active Tablets 325mg 60tab give 2 s tablets po A. [id number] prn Bridgett, for pain or M.D. fever >101.0f Aspirin Low 11/28 Active Chewtabs 81mg 15uni Take 1 [facility], ts Tablet By Elliot, Mouth Every D.O. Other Day (Prevent Heart Disease) Zincon Dandruff Active Shampoo 1% QS 3 x a week Sopchak, Elliot, D.O. Westcort 0.2% Active 45uni Apply To [facility], Cre 15GM /0000 ts Facial Elliot, Lesions D.O. Twice Daily as Needed Dryness, Itching Or Redness. Must Be Applied By Amap Notify RN When Used, Dheeraj N Tarsum Active Shampoo 10-5% 472un 2 Capfuls [facility] its AT Bath Elliot, Time Every D.O. Day (Tar Bath) For Washing Body Atorvastatin 04/18 Hx Tablets 40mg 90tab 1 by mouth E78.4 [facility], s every day Elliot, - D.O. 04/19 Atorvastatin 04/18 Hx Tablets 80mg 1 by mouth E78.4 Unknown Calcium every - evening at 05/07 5 pm Linezolid 04/18 Hx Tablets 600mg 1 by mouth every 12 - hours 04/22 Flonase Allergy 01/05 Hx Suspension 50mcg/Act 47.40 2 sprays J30.9 [facility], 0ml each Elliot, - nostril D.O. 02/04 daily Tylenol Extra 01/05 Hx Tablets 500mg 56tab take two J30.9 [facility], s tablets by Elliot, - mouth 2 D.O. 01/19 times a day /2016 for 2 weeks scheduled Artificial 08/10 Hx Solution 1.4% 45ml 1 [facility] as Elliot, - needed for D.O. 05/15 dry eyes Miralax 07/21 Hx Powder [id number] 510un 1 capful in [facility] its 8 oz. of Elliot, - water by D.O. 03/21 mouth every day Hold for > 3 stools/day Dandruff 06/15 Hx Shampoo 3x/wk Unknown Shampoo /2015 - 04/22 Deep Sea Nasal 06/15 Hx Solution instill Unknown into each - nostril 03/15 Claritin 05/29 Hx Capsules 10mg 1 by mouth every day - 10/25 Claritin 10MG 11/29 Hx 28uni Take 1 Sopchak, Tab ts Tablet By Elliot, - Mouth Once D.O. 06/15 Doxycycline 11/05 Hx Tablets 100[facility] 20tab [facility] - days [facility], 11/15 M.D. Doxycycline 10/01 Hx Tablets 100mg 20tab 1 twice a [facility]06.9 [facility]. - days [facility], 11/04 M.D. Bacitracin 09/30 Hx Ointment 500Unit/G prn - 07/27 Calamine 09/30 Hx Lotion prn - 04/22 Azithromycin 08/25 Hx Tablets 250mg 6tabs take 2 tablets by Elliot, - mouth one D.O. 08/30 time on the first day then take 1 tablet by mouth daily for 4 days Chlorpromazine 06/14 Hx Tablets 25mg 1 tab daily Miguel HCL and 2 tabs Elliot, - at hs D.O. 06/15 Urine 02/12 Hx Sopchak, Benzodiazepine Elliot, Level - D.O. 02/22 Polytrim 09/03 Hx Solution 64950-3.1 10uni Instill 1 carmen Unit/ML-% ts Drop In The Elliot, - Affected D.O. 09/10 Eye(S) Three Times Daily For 5-7 Days Acetaminophen 08/28 Hx Suppository 650mg 10uni 1 tid as Miguel ts needed for Elliot, - pain D.O. 09/27 Prednisone 08/13 Hx Tablets 20mg (decreasing doses x7 - days) 08/20 Tears Naturale 08/13 Hx Solution 0.1-0.2-0 15ml 2 drops as Kristi Rivera .3% needed - 6 Elliot, - times/day D.O. 08/18 Nystatin 08/03 Hx Cream [id number] 30uni Apply 1 Sopchak t/GM ts Application Elliot, - Topically D.O. 02/12 To Area On Both Buttocks 2 Times Per Day For Rash Nystatin 12/29 Hx Powder [id number] 60uni Dust Powder 110.4 Silco t/GM ts Freely On Liang, - The Feet M.D. 01/14 And In Shoes And Socks Three Times A Day [...] to 684 affected A. - area tid [facility], 07/12 M.D. Debrox 04/05 Hx Solution 6.5% 1bott instill 380.4 Charles le 5-10 drops Liang, - in ear qid, M.D. 04/05 up to days, keep drops in ear for several min Triazolam 03/21 Hx Tablets 0.25mg 6tabs 2, one hour 318.2 Miguel prior to Elliot, - dental work D.O. 05/19 Bactroban 03/21 Hx Ointment 2% 22gm use bid and 892.0 rug in well A. - to area on [facility], 04/20 foot M.D. Sulfamethoxazol 06/13 Hx Tablets 800-160mg 20tab 1 po bid 681.00 Max e/ s A. DS - Mistyedouardjesica, 06/23 M.D. Shingles 06/06 Hx 1dose dispense V65.49 Max one dose to A. - [employer] only Bridgett, 07/06 M.D. Syringe 1 cc 06/06 Hx 1unit V65.49 Max With 25GA 1 10/16 s A. In Needle - Mistyarmando, 07/06 M.D. Deep Sea Nasal 06/05 Hx Solution 0.65% 1bott 1 spray per Miguel, le nostril Elliot, - daily D.O. 06/13 [...] for 2-4wks Saline 0.65% 08/23 Hx Nasal [place] 44uni [place] 1 ts [place] [facility]. [facility] Nostril M.D. Once A Day Bactrim DS 08/04 Hx Tablets 800-160mg 14tab 1 po bid x 681.02 Lakisha, s 7 days Lance Tavera.Noa 08/11 Colace 07/13 Hx Capsules 100mg 120ca 2 caps 564.01 Miguel ps (200mg) by Elliot, - mouth twice D.O. 09/12 daily hold for loose stools - notify rn if held Enbrel 04/19 Hx Solution 50mg/ml 1 cc twice 696.1 Caty weekly Lance Varela MD 03/11 Hydrocortisone 11/23 Hx Ointment 2.5% 20gm apply 782.1 springly A. - to affected Mistyarmando, 12/13 area tid M.DRashmi for 2 weeks Clarithromycin 11/23 Hx Tablets 250mg 20tab 1 po bid 782.1 s A. - Bridgett, 04/18 M.D. Haloperidol 11/19 Hx Tablets 1mg 5tabs 1, one hour 318.2 before A. - appointment Bridgett 11/23.D. V40.3 Sulf-10 07/09/2008 - Hx Solution 10% Max Rashmi 07/09/2008 Yohannes Whitlock Sodium Sulamyd 07/09/2008 - Hx 10% QS 1 gtt each eye Rashmi 07/09/2008 qid x 7 days. Yohannes Whitlock Miralax 07/01/2007 - Hx Powder 3350NF 527gm 1 capful bid 564.0 Max Rashmi 07/07/2011 for 1 Bridgett constipation Yohannes Loratadine 01/07/2007 - Hx Tablets 10mg 30tab 1 po qd for 460 Max ARashmi 01/06/2011 s allergies Yohannes Whitlock Ilotycin Opthal 06/19/2006 - Hx .5% QS use qid for 7 372.0 Max ARashmi 06/26/2006 Oint days o.u. 3 Yohannes Whitlock Chlorpromazine 02/09/2006 - Hx Tablets 25mg 120ta take on tablet V40.3 Max ARashmi 06/16/2016 bs every morning Bridgett, and three Aníbal.DRashmi tablets at bedtime Bisacodyl 12/28/2005 - Hx Tablets 5mg 60tab 2 po For No BM 564.0 [facility]2015 s In 48 Hours 1 Yohannes Whitlock Peridex 11/28/2005 - Hx Rinse 0.12%;1 1Bott give 10mls bid Max Bragg 04/09/2008 1.6%Alc le after brushing raphael Whitlock teeth Yohannes Bisacodyl 11/28/2005 - Hx Suppositor 5mg 60uni Give 2 Tablets Max Rashmi 12/28/2005 ts PO If No BM In Bridgett 48Hours Yohannes Calamine Lotion 11/28/2005 - Hx Liquid tid prn Max Bragg 04/09/2008 Yohannes Whitlock [place] Bismuth 11/28/2005 - Hx 1Bott 30 cc PO After Max A. Liquid 04/09/2008 le Each Loose Bridgett Stool; Not To M.D. Exceed tid X3days Mineral Oil 11/28/2005 - Hx 1Bott as Directed Max Bragg 01/19/2007 marnie Whitlock M.D. Bacitracin 11/28/2005 - Hx 1Bott Apply Max A. Ointment 04/09/2008 le Topically bid gwendolyn Whitlockn To Open M.D. Areas Katrin D 02/23/2005 - Hx Tablets 60mg;12 60tab 1 po bid for 460 Max A. 01/07/2007 0 mg s allergy Yohannes Whitlock Flonase 02/03/2005 - Hx [place] 50mcg/S 2unit 2 sprays in Max ARashmi 03/02/2005 pray s each nostril gustavo Whitlock M.D. Chloral Hydrate 01/16/2005 - Hx Syrup 500mg/5 80cc 10 cc po 1hr Max MamieRashmi 11/19/2008 ML before amish Whitlock M.D. Atarax 09/26/2004 - Hx Tablets 50mg 7tabs 1 tab po hs bridgett 10/19/2006 Raptiva 09/25/2004 - Hx Injection 125mg/V 696.1 Max ARashmi 02/12/2009 ial Yohannes Whitlock Artificial Tears 08/11/2004 - Hx 1Bott 2 gtts to each Max MameiRashmi 04/09/2008 le eye Q4H prn Yohannes Whitlock Chlorhexidine 08/11/2004 - Hx Rinse 0.12% 1Bott use 10mls to Max Hatch. Gluconate 06/10/2014 le rinse mouth Bridgett after brushing M.DRashmi teeth bid Saline Nasal 08/02/2004 - Hx [id number] 1 spray ea 477.0 Max ARashmi [place] 02/02/2014 o nostril qd Yohannes Whitlock Flonase [...] 1 every day Sopchadonna, Iron 05/12/2015 s Elliot, D.O. Fleets Enema 02/11/2004 - Hx 5unit [address] of Sopchak, 04/21/2016 s rectum as Elliot, needed with no D.O. results from bisacodyl tabs in 24hrs Bisacodyl 01/08/2004 - Hx Suppositor 10mg 10uni 1 suppository Max Bragg 11/28/2005 ts every 3 days Bridgett if no BM prn Yohannes Levoxyl 01/06/2004 - Hx Tablets 50mcg 30tab 1 tab by mouth 244.9 Miguel, 10/25/2015 s daily for Elliot, thyroid on D.O. empty stomach in the in the morning Niaspan Extended 12/04/2003 - Hx Tablets 1000mg 30tab 1 tablet po 272.4 Max Bragg Release 08/21/2013 s qtala Whitlock M.D. Ferrous Sulfate 12/04/2003 - Hx Tablets 325mg 60tab 1 po bid Max Bragg 04/09/2007 manuelito Whitlock M.D. Doxycycline 09/29/2003 - Hx Capsules 100mg 20cap 1 bid for ten 461.9 Max Bragg Hyclate 01/06/2004 s karina Whitlock M.D. Pentoxifylline 09/28/2003 - Hx Tablets 400mg 90tab [...] Hx Capsules 10mg 30cap 1 by mouth Miguel, 11/29/2015 s every day Arianna Zarate Chlorpromazine - Hx Tablets 25mg 4 daily Unknown HCL 08/13/2014 Hydrocortisone - Hx Cream 1% prn Unknown 06/16/2016 Immunizations CPT Code Status Date Vaccine Lot # [id number] Given 06/20/2017 Influenza Virus Vaccine, Quadrivalent, Split, [id number] Preservative Free 47237 Given 06/16/2016 Influenza Virus Vaccine, Quadrivalent, Split, [id number] Preservative Free 58232 Given 06/14/2015 Zostavax [id number] 39280 Given 06/14/2015 Influenza Virus Vaccine, Quadrivalent, Split, [id number] Preservative Free 75160 Given 06/14/2015 Prevnar 13 [id number] 62189 Given 06/11/2014 Adacel or Boostrix, TDaP [id number] 63299 Given 06/11/2014 Influenza Vaccine Split Virus Preservative Free Im [id number] Use 21539 Given 07/28/2013 Flu, Split Virus 3Yrs [id number] 84198 Given 07/12/2012 Flu, Split Virus 3Yrs [id number] 08229 Given 08/22/2011 Flu, Split Virus 3Yrs [id number] 22463 Given 08/04/2010 Flu, Split Virus 3Yrs [id number] 96324 Given 09/22/2009 Flu, Split Virus 3Yrs [id number] 62681 Given 08/27/2008 Flu, Split Virus 3Yrs [id number] 21501 Given 08/29/2007 Flu, Split Virus 3Yrs [id number] 44708 Given 08/27/2006 Flu, Split Virus 3Yrs [id number] 41175 Given 03/06/2006 Pneumococcal Immunization [id number] 54855 Given 08/12/2004 Flu, Split Virus 3Yrs 51359 Given 02/10/2004 Td Immunization 02575 Given 08/01/2003 Flu, Split Virus 3Yrs Vital Signs Date Vital Result Comment 06/05/2018 BP Systolic 164 mmHg BP Diastolic [...] Result H/L Range Note CBC Auto Diff 05/31/2018 White Blood Count [...] Egfr Non- 49.0 >60 Egfr 59.3 >60 1 Urine Culture And 05/18/2018 Urine Culture SEE RESULT BELOW 2, 3 Sensitivities Wound Culture/Sensi 05/18/2018 Wound/Misc SEE RESULT BELOW 4, 5 Culture-Gram Stain Laboratory test finding 05/18/2018 MRSA/S Aureus Ssti SEE RESULT BELOW 4, 6 PCR Urine Culture And 05/01/2018 Urine Culture SEE RESULT BELOW 7, 8 Sensitivities Urine Micro Inhouse 04/30/2018 Ua WBC 5-10 Ua Epi Occ./0-2 Ua Other sperm Ua Specific [place] 1.025 Ua Blood moderate NH Ua PH 6.0 Ua Nitrite + Ua Leukocytes trace Culture Urine Inhouse 04/30/2018 Colonies 07/19 Laboratory test finding 04/14/2018 Blood Culture SEE RESULT BELOW 9 Urine Culture And 04/14/2018 Urine Culture SEE RESULT BELOW 10 Sensitivities Laboratory test finding 04/14/2018 B-Type Natriuretic 30 pg/mL 11 Peptide BNP Urinalysis Profile 04/14/2018 Urine Color Yellow Urine Appearance Turbid Urine Specific [place] 1.015 1.010-1.030 Urine pH 7.0 5-9 Urine Urobilinogen Negative Negative Urine Ketones Negative Negative Urine Protein 1+(30 mg/dL) Negative Urine Leukocytes 3+ Negative Urine Blood 1+ Negative Urine Nitrite Negative Negative Urine Bilirubin Negative Negative Urine Glucose Negative Negative Urine White Blood Cell 3+(>20/hpf) Absent Urine Red Blood Cell 3+(>10/hpf) Absent Urine Bacteria Absent Absent Urine Squamous Epithelial Cell Present Absent Laboratory test finding 04/14/2018 C Reactive Protein 53.28 mg/L High < 8.01 Troponin-I (TnI) 1.23 ng/mL High <0.04 12 Comp Metabolic Panel 04/14/2018 Sodium 135 mmol/L [...] Egfr Non- 46.3 >60 Egfr 56.1 >60 13 Laboratory test finding 04/14/2018 Partial Thrombo Time 48.6 seconds High 26.0-36.3 PTT Lactic Acid 1.9 mmol/L 0.5-2.0 14 Inr/Protime 04/14/2018 Inr 1.25 High 0.77-1.02 CBC Auto Diff 04/14/2018 White Blood Count [...] Red Blood Cells % 0.4 Laboratory test 07/23/2017 Vitamin D Total 86.2 ng/mL High 20-50 15, 16 finding 25(Oh) CBC Auto Diff 05/22/2017 White Blood Count 6.2 10^3/uL 3.5-10.8 17 Red Blood Count 5.32 10^6/uL 4.0-5.4 17 Hemoglobin 16.7 g/dL 14.0-18.0 17 Hematocrit 51 % 42-52 17 Mean Corpuscular Volume 95 fL High 80-94 17 Mean Corpuscular Hemoglobin 31 pg 27-31 17 Mean Corpuscular HGB Conc 33 g/dL 31-36 17 Red Cell Distribution Width 14 % 10.5-15 17 Platelet Count 221 10^3/uL 150-450 17 Mean Platelet Volume 9 um3 7.4-10.4 17 Abs Neutrophils 4.0 10^3/uL 1.5-7.7 17 Abs Lymphocytes 1.5 10^3/uL 1.0-4.8 17 Abs Monocytes 0.6 10^3/uL 0-0.8 17 Abs Eosinophils 0 10^3/uL 0-0.6 17 Abs Basophils 0 10^3/uL 0-0.2 17 Abs Nucleated RBC 0 10^3/uL 17 Granulocyte % 64.1 % 38-83 17 Lymphocyte % 24.9 % Low 25-47 17 Monocyte % 10.3 % High 1-9 17 Eosinophil % 0.4 % 0-6 17 Basophil % 0.3 % 0-2 17 Nucleated Red Blood Cells % 0 17 Comp Metabolic Panel 05/22/2017 Sodium 139 mmol/L 133-145 17 Potassium 4.1 mmol/L 3.5-5.0 17 Chloride 107 mmol/L 101-111 17 Co2 Carbon Dioxide 31 mmol/L 22-32 17 Anion Gap 1 mmol/L Low 2-11 17 Glucose 88 mg/dL 70-100 17 Blood Urea Nitrogen 29 mg/dL High 6-24 17 Creatinine 1.22 mg/dL High 0.67-1.17 17 BUN/Creatinine Ratio 23.8 High 8-20 17 Calcium 9.5 mg/dL 8.6-10.3 17 Total Protein 7.1 g/dL 6.4-8.9 17 Albumin 3.8 g/dL 3.2-5.2 17 Globulin 3.3 g/dL 2-4 17 Albumin/Globulin Ratio 1.2 1-3 17 Total Bilirubin 0.70 mg/dL 0.2-1.0 17 Alkaline Phosphatase 66 U/L 34-104 17 Alt 20 U/L 7-52 17 Ast 22 U/L 13-39 17 Egfr Non- 57.2 >60 17 Egfr 73.5 >60 17, 18 Laboratory test finding 05/22/2017 Magnesium 2.2 mg/dL 1.9-2.7 17, 19 TSH (Thyroid Stim Horm) 2.13 mcIU/mL 0.34-5.60 17, 20 T3 Free 3.10 pg/mL 2.5-3.9 17, 21 Free T4 (Free Thyroxine) 0.96 ng/dL 0.61-1.12 17, 22 Vitamin B12 1420 pg/mL High 180-914 17, 23 Laboratory test finding 07/19/2016 Surgical Pathology SEE RESULT BELOW 24 Lipid Profile 06/22/2016 Triglycerides 156 mg/dL 25, 26 (Trig/Chol/HDL) Cholesterol 209 mg/dL 25, 27 HDL Cholesterol 39.8 mg/dL 25, 28 LDL Cholesterol 138 mg/dL 25, 29 CBC Auto Diff 06/22/2016 White Blood Count 6.8 10^3/uL 3.5-10.8 25 Red Blood Count 5.54 10^6/uL High 4.0-5.4 25 Hemoglobin 16.7 g/dL 14.0-18.0 25 Hematocrit 49 % 42-52 25 Mean Corpuscular Volume 89 fL 80-94 25 Mean Corpuscular Hemoglobin 30 pg 27-31 25 Mean Corpuscular HGB Conc 34 g/dL 31-36 25 Red Cell Distribution Width 14 % 10.5-15 25 Platelet Count 239 10^3/uL 150-450 25 Mean Platelet Volume 9 um3 7.4-10.4 25 Abs Neutrophils 4.6 10^3/uL 1.5-7.7 25 Abs Lymphocytes 1.4 10^3/uL 1.0-4.8 25 Abs Monocytes 0.7 10^3/uL 0-0.8 25 Abs Eosinophils 0.1 10^3/uL 0-0.6 25 Abs Basophils 0 10^3/uL 0-0.2 25 Abs Nucleated RBC 0.01 10^3/uL 25 Granulocyte % 68.2 % 38-83 25 Lymphocyte % 20.1 % Low 25-47 25 Monocyte % 10.3 % High 1-9 25 Eosinophil % 1.3 % 0-6 25 Basophil % 0.1 % 0-2 25 Nucleated Red Blood Cells % 0.2 25 Comp Metabolic Panel 06/22/2016 Sodium 135 mmol/L 133-145 25 Potassium 4.0 mmol/L 3.5-5.0 25 Chloride 103 mmol/L 101-111 25 Co2 Carbon Dioxide 26 mmol/L 22-32 25 Anion Gap 6 mmol/L 2-11 25 Glucose 83 mg/dL 70-100 25 Blood Urea Nitrogen 23 mg/dL 6-24 25 Creatinine 1.08 mg/dL 0.67-1.17 25 BUN/Creatinine Ratio 21.3 High 8-20 25 Calcium 9.6 mg/dL 8.6-10.3 25 Total Protein 7.0 g/dL 6.4-8.9 25 Albumin 3.8 g/dL 3.2-5.2 25 Globulin 3.2 g/dL 2-4 25 Albumin/Globulin Ratio 1.2 1-3 25 Total Bilirubin 0.50 mg/dL 0.2-1.0 25 Alkaline Phosphatase 75 U/L 34-104 25 Alt 23 U/L 7-52 25 Ast 25 U/L 13-39 25 Egfr Non- 66.0 >60 25 Egfr 84.8 >60 25, 30 Laboratory test 06/22/2016 Vitamin D Total 70.7 ng/mL High 30-50 25, 31 finding 25(Oh) CBC Auto Diff 03/20/2016 White [...] Egfr Non- 66.7 >60 Egfr 85.7 >60 32 Laboratory test finding 03/20/2016 Magnesium 2.0 mg/dL 1.9-2.7 TSH (Thyroid Stim Horm) 3.57 ?IU/mL 0.34-5.60 T3 Free 3.00 pg/mL 2.5-3.9 Free T4 (Free Thyroxine) 0.87 ng/dL 0.61-1.12 Vitamin B12 > 1450 pg/mL High 180-914 33 Laboratory test finding 01/20/2016 Lipase 29 U/L 11.0-82.0 C Reactive Protein 3.00 mg/L < 5.00 34 Comp Metabolic Panel 01/20/2016 Sodium 132 mmol/L Low 133-145 Potassium 4.6 mmol/L 3.5-5.0 Chloride 103 mmol/L 101-111 Co2 Carbon Dioxide 23 mmol/L 22-32 Anion Gap 6 mmol/L 2-11 Creatinine 1.01 mg/dL 0.67-1.17 Calcium 9.5 mg/dL 8.6-10.3 Albumin 3.9 g/dL 3.2-5.2 Alkaline Phosphatase 64 U/L 34-104 Alt 24 U/L 7-52 Ast 32 U/L 13-39 Egfr Non- 71.3 >60 Egfr 91.6 >60 35 Glucose 100 mg/dL 70-100 Blood Urea Nitrogen 18 mg/dL 6-24 BUN/Creatinine Ratio 17.8 8-20 Total Protein 7.1 g/dL 6.4-8.9 Globulin 3.2 g/dL 2-4 Albumin/Globulin Ratio 1.2 1-3 Total Bilirubin 0.40 mg/dL 0.2-1.0 Laboratory test finding 01/20/2016 Troponin-I (TnI) 0.01 ng/mL <0.03 36 Urinalysis Profile 01/20/2016 Urine Color Yellow Urine Appearance Clear Urine Specific [place] 1.017 1.010-1.030 Urine pH 6.0 5-9 Urine [...] um3 7.4-10.4 Abs Neutrophils 4.5 10^3/uL 1.5-7.7 37 Abs Lymphocytes 1.7 10^3/uL 1.0-4.8 38 Abs Monocytes 0.7 10^3/uL 0-0.8 39 Abs Eosinophils 0.1 10^3/uL 0-0.6 40 Abs Basophils 0 10^3/uL 0-0.2 41 Abs Nucleated RBC 0.06 10^3/uL 42 Granulocyte % 64.5 % 38-83 Lymphocyte % 24.4 % Low 25-47 43 Monocyte % 9.4 % High 1-9 Eosinophil % 1.0 % 0-6 Basophil % 0.7 % 0-2 Nucleated Red Blood Cells % 0.9 Laboratory test finding 06/14/2015 Vitamin D Total 25(Oh) 25.2 ng/mL Low 30-50 CBC Auto Diff 06/14/2015 White Blood Count [...] Egfr Non- 81.6 >60 Egfr 105.0 >60 44 Laboratory test finding 06/14/2015 TSH (Thyroid Stim Horm) 1.61 ?IU/mL 0.34-5.60 Quantiferon Gold TB 06/14/2015 M tuberculosis by Negative Negative Quantiferon Tuberculosis Antigen Value 0.00 IU/mL 45 CBC Auto Diff 03/08/2015 White Blood Count [...] Egfr Non- 60.9 >60 Egfr 78.3 >60 46 Laboratory test finding 03/08/2015 Lipase 20 U/L 11.0-82.0 C Reactive Protein 2.57 mg/L < 5.00 47 Lactic Acid 1.7 mmol/L 0.5-2.2 Urinalysis Profile 03/08/2015 Urine Color Yellow Urine Appearance Clear Urine Specific [place] 1.011 1.010-1.030 Urine pH 6.0 5-9 Urine Urobilinogen Negative Negative Urine Ketones Negative Negative Urine Protein Negative Negative Urine Leukocytes Negative Negative Urine Blood Negative Negative Urine Nitrite Negative Negative Urine Bilirubin Negative Negative Urine Glucose Negative Negative CBC Auto Diff 02/22/2015 White Blood Count [...] Blood Cells % 0.2 Comp Metabolic Panel 02/22/2015 Sodium 137 mmol/L [...] Egfr Non- 59.1 >60 Egfr 76.0 >60 48 Lipid Profile (Trig/Chol/HDL) 11/25/2014 Triglycerides 216 mg/dL 49, 50 Cholesterol 154 mg/dL 49, 51 HDL Cholesterol 26.4 mg/dL 49, 52 LDL Cholesterol 84 mg/dL 49, 53 Laboratory test finding 08/13/2014 Erythrocyte Sed Rate [...] C Reactive Protein 1.50 mg/L < 5.00 54 Comp Metabolic Panel 08/13/2014 Sodium 135 mmol/L [...] Egfr Non- 57.1 >60 Egfr 73.4 >60 55 Laboratory test finding 06/20/2014 Free T3 2.80 pg/mL 2.5-3.9 56, 57 Free T4 0.84 ng/mL 0.61-1.12 56, 58 TSH (Thyroid Stimulating Horm) 2.50 IU/mL 0.34-5.60 56, 59 Laboratory test finding 03/06/2014 TSH (Thyroid Stimulating 2.58 IU/mL 0.34-5.60 Horm) T4 5.24 g/dL Low 6.09-12.23 Total T3 0.60 ng/mL Low 0.87-1.78 Lipid Profile (Trig/Chol/HDL) 12/29/2013 Triglycerides 139 mg/dL 60 Cholesterol 154 mg/dL 61 HDL Cholesterol 34.6 mg/dL 62 LDL Cholesterol 92 mg/dL 63 Laboratory test finding 12/29/2013 Ast 19 U/L [...] Egfr Non- 58.9 >60 Egfr 75.7 >60 64 Laboratory test finding 04/03/2013 TSH (Thyroid Stimulating [...] Egfr Non- 58.9 >60 Egfr 75.7 >60 65 CBC Auto Diff 02/21/2013 White Blood Count [...] 40-200 Cholesterol 182 mg/dL Less than 200 66 HDL Cholesterol 37 mg/dL Low 40-60 67 Cholesterol/HDL Ratio 4.9 AVERAGE High 1-4.44 LDL [...] 1.3 1-3 Total Bilirubin 0.9 mg/dL 0.1-1.0 68 Alkaline Phosphatase 71 U/L 30-110 Alt 26 U/L 14-54 Ast 30 U/L 12-42 Egfr Non- 65.3 >60 Egfr 83.9 >60 69 Laboratory test finding 06/07/2012 Occult Blood - [...] mmol/L 22-32 Anion Gap 5.0 mmol/L 2-11 70 Glucose 84 mg/dL 70-100 BUN 21 mg/dL 6-24 Creatinine 1.2 mg/dL 0.50-1.40 One Over Creatinine 0.83 BUN/Creatinine Ratio 17.5 8-20 Calcium 9.1 mg/dL 8.1-9.9 Total Protein 6.1 GM/DL Low 6.2-8.1 Albumin 3.5 GM/DL 3.2-5.2 Globulin 2.6 GM/DL 2-4 Albumin/Globulin Ratio 1.3 1-3 Bilirubin Total 0.9 mg/dL 0.4-1.5 71 Alkaline Phosphatase 65 U/L 39-117 Alt (SGPT) 23 U/L 17-63 Ast (Sgot) 28 U/L 12-42 eGFR Non- 59.0 > 60 eGFR 75.9 > 60 72 Liver Function Panel 02/19/2012 Bilirubin Direct 0.2 mg/dL 0.1-0.5 Indirect Bilirubin 0.7 mg/dL 0.3-1.0 73 Laboratory test finding 02/19/2012 TSH 3.99 MIU/ML [...] Eosinophils 0 0-0.6 Abs Basophils 0 0-0.2 74 Comp Metabolic Panel 03/02/2011 Sodium 137 mmol/L 135-145 Potassium 4.0 mmol/L 3.5-5.0 Chloride 107 mmol/L 101-111 Co2 (Carbon Dioxide) 26.0 mmol/L 22-32 Anion Gap 4.0 mmol/L 2-11 75 Glucose 136 mg/dL High 70-100 BUN 20 mg/dL 6-24 Creatinine 1.10 mg/dL 0.50-1.40 One Over Creatinine 0.90 BUN/Creatinine Ratio 18.2 8-20 Calcium 9.4 mg/dL 8.1-9.9 Total Protein 6.7 GM/DL 6.2-8.1 Albumin 3.6 GM/DL 3.2-5.2 Globulin 3.1 GM/DL 2-4 Albumin/Globulin Ratio 1.2 1-3 Bilirubin Total 1.1 mg/dL 0.4-1.5 76 Alkaline Phosphatase 66 U/L 39-117 Alt (SGPT) 30 U/L 17-63 Ast (Sgot) 30 U/L 12-42 eGFR Non- 65.4 > 60 eGFR 84.2 > 60 77 Laboratory test finding 03/02/2011 TSH 2.32 MIU/ML 0.34-5.60 Urine Culture & 03/02/2011 Urine Culture NG 78 Sensitivi Sensitivi Urinalysis 03/02/2011 Ua Color YELLOW Yellow Appearance-Urine CLEAR Clear Specific [place]-Ur 1.013 1.010-1.030 Esterase-Urine NEGATIVE Negative Nitrite NEGATIVE Negative Llfjsgmvcmoc-Lo-OHF NEGATIVE Negative Protein-Urine NEGATIVE Negative PH-Urine 5.5 5-9 Blood-Urine NEGATIVE Negative Ketones-Urine NEGATIVE Negative Bilirubin-Ur NEGATIVE Negative Glucose-Urine NEGATIVE Negative Comp Metabolic Panel 07/15/2010 Sodium 137 mmol/L 135-145 Potassium 3.8 mmol/L 3.5-5.0 Chloride 107 mmol/L 101-111 Co2 (Carbon Dioxide) 26.0 mmol/L 22-32 Anion Gap 4.0 mmol/L 2-11 79 Glucose 86 mg/dL 70-100 80 BUN 20 mg/dL 6-24 Creatinine 1.02 mg/dL 0.50-1.40 One Over Creatinine 0.90 BUN/Creatinine Ratio 19.6 8-20 Calcium 8.9 mg/dL 8.1-9.9 Total Protein 7.0 GM/DL 6.2-8.1 Albumin 3.7 GM/DL 3.2-5.2 Globulin 3.3 GM/DL 2-4 Albumin/Globulin Ratio 1.1 1-3 Bilirubin Total 0.9 mg/dL 0.4-1.5 81 Alkaline Phosphatase 67 U/L 39-117 Alt (SGPT) 30 U/L 17-63 Ast (Sgot) 32 U/L 12-42 eGFR Non- 76.1 > 60 eGFR 92.1 > 60 82 CBC With Manual Diff 07/15/2010 White Blood [...] mmol/L 22-32 Anion Gap 9.0 mmol/L 2-11 83 Glucose 87 mg/dL 70-100 84 BUN 21 mg/dL 6-24 Creatinine 1.00 mg/dL 0.50-1.40 One Over Creatinine 1.00 BUN/Creatinine Ratio 21.0 High 8-20 Calcium 8.8 mg/dL 8.1-9.9 Total Protein 6.6 GM/DL 6.2-8.1 Albumin 3.8 GM/DL 3.2-5.2 Globulin 2.8 GM/DL 2-4 Albumin/Globulin Ratio 1.4 1-3 Bilirubin Total 1.1 mg/dL 0.4-1.5 85 Alkaline Phosphatase 59 U/L 39-117 Alt (SGPT) 23 U/L 17-63 Ast (Sgot) 32 U/L 12-42 eGFR Non- 77.8 > 60 eGFR 94.2 > 60 86 Laboratory test finding 07/13/2010 PSA Screening 1.76 NG/ML 0-4 87 CBC With Electronic Diff 07/13/2010 White Blood [...] 4 % 0-6 Absolute Neutrophil Count 4.3 88 Anisocytosis SLIGHT Manual Diff Comments (SEE NOTE) 89 Comp Metabolic Panel 12/28/2008 Sodium 134 mmol/L Low 135-145 Potassium 4.4 mmol/L 3.5-5.0 Chloride 98 mmol/L Low 101-111 Co2 (Carbon Dioxide) 30.0 mmol/L 22-32 Anion Gap 6.0 mmol/L 2-11 90 Glucose 80 mg/dL 70-100 91 BUN 19 mg/dL 6-24 Creatinine 1.10 mg/dL 0.50-1.40 One Over Creatinine 0.90 BUN/Creatinine Ratio 17.3 8-20 Calcium 8.8 mg/dL 8.1-9.9 92 Total Protein 6.3 GM/DL 6.2-8.1 Albumin 3.4 GM/DL 3.2-5.2 Globulin 2.9 GM/DL 2-4 Albumin/Globulin Ratio 1.2 1-3 Bilirubin Total 0.8 mg/dL 0.4-1.5 Alkaline Phosphatase 64 U/L 39-117 Alt (SGPT) 19 U/L 17-63 Ast (Sgot) 23 U/L 12-42 Lipid Profile (Trig/Chol/HDL) 12/28/2008 Triglyceride 159 mg/dL 40-200 Cholesterol 167 mg/dL Less Than 200 93 High Density Lipoprotein 32 mg/dL Low 40-60 94 Low Density Lipoprotein 103 mg/dL High Less Than 100 95 Cholesterol/HDL Ratio 5.22 AVERAGE High 1-4.97 Laboratory test finding 12/28/2008 TSH 1.97 MIU/ML 0.34-5.60 Laboratory test finding 04/13/2008 TSH 2.03 MIU/ML 0.34-5.60 Lipid Profile (Trig/Chol/HDL) 04/13/2008 Triglyceride 222 mg/dL High 40- 200 Cholesterol 172 mg/dL Less Than 200 96 High Density Lipoprotein 31 mg/dL Low 40-60 97 Cholesterol/HDL Ratio 5.55 AVERAGE High 1-4.97 Low Density Lipoprotein 97 mg/dL Less Than 100 98 Liver Function Panel 04/13/2008 Total Protein 6.5 [...] 22-32 Anion Gap 1.0 mmol/L Low 2-11 99 Glucose 82 mg/dL 70-105 BUN 17 mg/dL 6-24 Creatinine 1.0 mg/dL 0.5-1.4 One Over Creatinine 1.00 BUN/Creatinine Ratio 17.0 8-20 Calcium 8.7 mg/dL 8.1-9.9 100 CBC With Electronic Diff 04/13/2008 White Blood [...] finding 04/13/2008 PSA Screening 3.03 NG/ML 0-4 101 Laboratory test finding 04/09/2008 Occult Blood - [...] MIU/ML 0.34-5.60 PSA Screening 1.36 NG/ML 0.01-4.0 102 CBC With Manual Diff 04/05/2007 White Blood [...] Creatinine 0.90 Anion Gap 4.0 mmol/L 2-11 103 Albumin/Globulin Ratio 1.4 1-3 Albumin 3.6 GM/DL [...] (Trig/Chol/HDL) Cholesterol 158 mg/dL Less Than 200 104 Triglyceride 140 mg/dL 40-200 High Density Lipoprotein 28 mg/dL Low 40-60 105 Low Density Lipoprotein 102 mg/dL High Less Than 100 106 Laboratory test finding 12/10/2006 PSA Screening 4.31 NG/ML High 0.01-4.0 107 Iron & Iron Binding Capacity 12/10/2006 Iron [...] Sgot 32 BUN - Urea Nitrogen 17 CMP Panel 01/13/2005 Albumin 3.6 Alt - [...] Lymphocytes 16 Monocytes 9 Eosinophils 1 1 Because ethnic data is not always readily [...] 15-29 5 Kidney failure <15 (or dialysis) 2 [id number] 3 SEE RESULT BELOW Name: LEYLA CARRANZA : [address]: Binh Lee MD Acct: [id number] Unit: [id number] AGE: 83 Location: [facility] Re05/18/18 SEX: M Status: DEP ER SPEC: [id number] LAVERN: 05/18/18-1205 [facility] DR: Maru BOOTHE REQ: [id number] RECD: 05/18/181883 STATUS: SHAHEED SOLANO DR: Elliot Cornelius MD _ SOURCE: URINE SPDESC: ORDERED: Urine Culture COMMENTS: [id number] Procedure Result Reported Site Urine Culture Final 05/19/18- 1309 ML No Growth (<1,000 CFU/mL) * ML - Main Lab . END OF REPORT DEPARTMENT OF PATHOLOGY, [address] [place] [address] Jeronimo Santos M.D. Director [facility] # [id number] 4 [id number] Comment: urethra 5 SEE RESULT BELOW Name: LEYLA CARRANZA : [address]: Binh Lee MD Acct: [id number] Unit: [id number] AGE: 83 Location: [facility] Re05/18/18 SEX: M Status: DEP ER SPEC: [id number] LAVERN: 05/18/18-1146 [facility] DR: Maru BOOTHE REQ: [id number] RECD: 05/18/18 STATUS: RES [facility] DR: Elliot Cornelius MD _ SOURCE: PERINEUM SPDESC: ORDERED: Culture Stain COMMENTS: [id number] Comment: urethra Procedure Result Reported Site Wound/Misc Gram Stain Preliminary 05/18/18- 1756 ML 3+ Epithelial Cells 1+ Nucleated Cells 1+ Gram Positive Cocci Wound/Misc Culture PENDING * ML - Main Lab . END OF REPORT DEPARTMENT OF PATHOLOGY, [address] [place] [address] Jeronimo Santos M.D. Director [facility] # [id number] 6 SEE RESULT BELOW Name: LEYLA CARRANZA : [address]: Binh Lee MD Acct: [id number] Unit: [id number] AGE: 83 Location: [facility] Re05/18/18 SEX: M Status: DEP ER SPEC: [id number] LAVERN: 05/18/18-1146 [facility] DR: Maru BOOTHE REQ: [id number] RECD: 05/18/18 STATUS: SHAHEED SOLANO DR: Elliot Cornelius MD _ SOURCE: PERINEUM SPDESC: ORDERED: MRSA/SA SSTI, Culture Stain COMMENTS: [id number] Comment: urethra Procedure Result Reported Site MRSA/S. aureus SSTI PCR Final 05/18/18- 2220 ML Organism 1 MRSA NEGATIVE Organism 2 S.AUREUS NEGATIVE Wound/Misc Gram Stain Final 05/19/18- 0741 ML 2+ Epithelial Cells 3+ Nucleated Cells 1+ Gram Positive Cocci Wound/Misc Culture Final 05/20/18- 1003 ML Organism 1 NORMAL SARA Quantity 1+ * ML - Main Lab . END OF REPORT DEPARTMENT OF PATHOLOGY, [address] [place] [address] Jeronimo Santos M.D. Director [facility] # [id number] 7 [id number] SEE RESULT BELOW Name: LEYLA CARRANZA : [address]: Sandoval Davila MD Acct: [id number] Unit: [id number] AGE: 83 Location: [facility] Re05/01/18 SEX: M Status: REG REF SPEC: [id number] LAVERN: 05/01/18 [facility] DR: Sandoval Davila MD REQ: [id number] RECD: 05/01/18 STATUS: SHAHEED SOLANO DR: Elliot Rivera DO _ SOURCE: URINE SPDESC: ORDERED: Urine Culture COMMENTS: [id number] QUERIES: Urine Source: Catheterization Procedure Result Reported Site Urine Culture Final 05/03/18- 0858 ML Organism 1 KLEBSIELLA PNEUMONIAE [place] Count 25-50,000 (Moderate) CFU/ML 1. KLEBSIELLA PNEUMONIAE [...] for any additional antibiotic reporting. * - [facility] . END OF REPORT DEPARTMENT OF PATHOLOGY, [address] [place] [address] Jeronimo Santos M.D. Director [facility] # [id number] 9 SEE RESULT BELOW Name: LEYLA CARRANZA : [address]: Ash Mcdermott MD Acct: [id number] Unit: [id number] AGE: 83 Location: [place] [address] Re04/14/18 Dis: 04/18/18 SEX: M Status: DIS IN SPEC: [id number] LAVERN: 04/14/18-1204 [facility] DR: Dain Bernstein MD REQ: [id number] RECD: 04/14/18 STATUS: SHAHEED SOLANO DR: Elliot Rivera DO _ SOURCE: BLOOD,VENO SPDESC: ORDERED: Blood Cult Procedure Result Reported Site Aerobic Culture Bottle Final 04/19/18- 1215 ML No Growth Day 5 Anaerobic Culture Bottle Final 04/19/18- 1215 ML No Growth Day 5 * ML - Main Lab . END OF REPORT DEPARTMENT OF PATHOLOGY, [address] [place] [address] Jeronimo Santos M.D. Director [facility] # [id number] 10 SEE RESULT BELOW Name: LEYLA CARRANZA : [address]: Ashly Jeter MD Acct: [id number] Unit: [id number] AGE: 83 Location: [place] [address] Re04/14/18 SEX: M Status: ADM IN SPEC: [id number] LAVERN: 04/14/[address]: Dain Bernstein MD REQ: [id number] RECD: 04/14/18 STATUS: SHAHEED SOLANO DR: Elliot Rivera DO _ SOURCE: URINE SPDESC: ORDERED: Urine Culture Procedure Result Reported Site Urine Culture Final 04/16/18- 0839 ML Organism 1 ENTEROCOCCUS FAECALIS [place] Count 50-75,000 (Many) CFU/ML 1. ENTEROCOCCUS FAECALIS M.I.C. RX --------- ------ Ampicillin <=2 S Penicillin 2 S Ciprofloxacin 1 S Gentamicin High Level S Levofloxacin 1 S Linezolid 2 S Nitrofurantoin <=16 S * Quinupristin/Dalfopristin R * Streptomycin High Level S Tetracycline >=16 R Tigecycline <=0.12 S Vancomycin 2 S Imipenem-Deduced S * Ampicillin/Sulbactam-Deduced S * These antibiotics are not available in the [facility] Formulary Contact the Microbiology Department for any additional antibiotic reporting. * ML - Main Lab . END OF REPORT DEPARTMENT OF PATHOLOGY, [address] [place] [address] Jeronimo Santos M.D. Director [facility] # [id number] 11 >100 to <200 pg/mL: likely compensated congestive heart failure (CHF) 200 to 400 pg/mL: likely moderate CHF >400 pg/mL: likely moderate to severe CHF 12 Result TnIDx:1.23 Called to [id number] at: 12:57:03 by:[email or web address] Read back by: [id number] 13 Because ethnic data is not always readily [...] 15-29 5 Kidney failure <15 (or dialysis) 14 [facility] Severe Sepsis and Septic Shock Management Bundle Measure requires all lactic acids initially measuring >2.0 mmol/L be repeated. 15 [id number] 16 [id number] 17 [id number] 18 Because ethnic data is not always readily [...] 15-29 5 Kidney failure <15 (or dialysis) 19 [id number] 20 [id number] 21 [id number] 22 [id number] 23 Normal Range 180 to 914 Indeterminate Range 145 to 180 Deficient Range <145 24 SEE RESULT BELOW Name: LEYLA CARRANZA : [address]: Elliot Rivera DO Acct: [id number] Unit: [id number] AGE: 81 Location: [facility] Re07/19/16 SEX: M Status: REG REF SPEC: [id number] LAVERN: 07/19/[address]: Elliot Rivera DO REQ: [id number] RECD: 07/20/163506 STATUS: SOUT _ ORDERED: LEVEL IV COMMENTS: [id number] FINAL DIAGNOSIS Skin, left ankle, biopsy: -- [...] performed at Main Lab DEPARTMENT OF PATHOLOGY, [address] [place] [address] Jeronimo Santos M.D. Director [facility] # [id number] 25 [id number] 26 Desirable <150 Borderline high 150-199 High 200-499 Very High >500 27 Desirable <200 Borderline high 200-239 High >239 28 Low <40 Desirable: 40-60 High: >60 29 Desirable: <100 mg/dL Near Optimal: 100-129 mg/dL Borderline High: 130-159 mg/dL High: 160-189 mg/dL Very High: >189 mg/dL 30 Because ethnic data is not always readily [...] 15-29 5 Kidney failure <15 (or dialysis) 31 [id number] 32 Because ethnic data is not always [...] 5 Kidney failure <15 (or dialysis) 33 Normal Range 180 to 914 Indeterminate Range 145 to 180 Deficient Range <145 34 Acute inflammation: >10.00 35 Because ethnic data is not always [...] 5 Kidney failure <15 (or dialysis) 36 Reference Range and Interpretation: TnI (ng/mL) Interpretation Less Than 0.03 ng/mL Not supportive of diagnosis of [place] 0.03 - 0.50 ng/mL Indeterminate: suggest serial studies if clinically indicated. Greater than 0.5 ng/mL Consistent with diagnosis of [place] 37 Consistent with previous results on 08/16/15. 38 Consistent with previous results on 08/16/15. 39 Consistent with previous results on 08/16/15. 40 Consistent with previous results on 08/16/15. 41 Consistent with previous results on 08/16/15. 42 --- 01/20/16 1352 --- ABS NRBC previously reported as: 0.06 10 3/ul Consistent with previous results on 08/16/15. 43 Consistent with previous results on 08/16/15. 44 Because ethnic data is not always [...] 5 Kidney failure <15 (or dialysis) 45 ADDITIONAL INFORMATION This is a qualitative test. [...] when interpreting QuantiFERON-TB results. Test Performed by: [address] [address] [place]: Max Hoffman II, M.D., Ph.D. 46 Because ethnic data is not always [...] (or dialysis) 47 Acute inflammation: >10.00 48 Because ethnic data is not always [...] 5 Kidney failure <15 (or dialysis) 49 KAELYNN JESSI STEPHENS 50 Desirable <150 Borderline high 150-199 High 200-499 Very High >500 51 Desirable <200 Borderline high 200-239 High >239 52 Low <40 Desirable: 40-60 High: >60 53 Desirable <100 Near Optimal 100-129 Borderline high 130-159 High 160-189 Very High >189 54 Acute inflammation: >10.00 55 Because ethnic data is not always readily [...] 15-29 5 Kidney failure <15 (or dialysis) 56 with next lab draw 57 with next lab draw 58 with next lab draw 59 with next lab draw 60 Desirable <150 Borderline high 150-199 High 200-499 Very High >500 61 Desirable <200 Borderline high 200-239 High >239 62 Low <40 Desirable: 40-60 High: >60 63 Desirable <100 Near Optimal 100-129 Borderline high 130-159 High 160-189 Very High >189 64 Because ethnic data is not always readily [...] 15-29 5 Kidney failure <15 (or dialysis) 65 Because ethnic data is not always [...] 5 Kidney failure <15 (or dialysis) 66 Desirable: Less than 200 MG/DL Borderline-High Risk: 200-239 MG/DL High-Risk: 240 MG/DL and over 67 HDL Interpretation: Undesirable: High Risk: Less than 40 MG/DL Desirable: Low Risk: Greater than 60 MG/DL 68 A metabolite of Naproxen, O-desmethylnaproxen, has [...] 5 Kidney failure <15 (or dialysis) 70 Anion gap measurement may be of limited value in the presence of any alkalosis, especially in a combined acid base disorder. . 71 A metabolite of Naproxen, O-desmethylnaproxen, has been shown to interfere with the Jendrassik-Yenifer method for measuring total bilirubin. Samples from patients who have taken Naproxen have shown spurious elevation in total bilirubin levels. 72 Because ethnic data is not always readily [...] 15-29 5 Kidney failure <15 (or dialysis) 73 Please note updated reference range, effective 05/05/10 74 Lymphopenia % 75 Anion gap measurement may be of limited value in the presence of any alkalosis, especially in a combined acid base disorder. . 76 A metabolite of Naproxen, O-desmethylnaproxen, has been shown to interfere with the Jendrassik-Casper method for measuring total bilirubin. Samples from patients who have taken Naproxen have shown spurious elevation in total bilirubin levels. 77 Because ethnic data is not always readily [...] 15-29 5 Kidney failure <15 (or dialysis) 78 FINAL: NO GROWTH DAY 2 (<1,000 CFU/mL) 79 Anion gap measurement may be of limited value in the presence of any alkalosis, especially in a combined acid base disorder. . 80 Note change in reference range as of 06/04/08. The change was based on recommendations from the [employer]. 81 A metabolite of Naproxen, O-desmethylnaproxen, has been shown to interfere with the Jendrassik-Casper method for measuring total bilirubin. Samples from patients who have taken Naproxen have shown spurious elevation in total bilirubin levels. 82 Because ethnic data is not always readily [...] 15-29 5 Kidney failure <15 (or dialysis) 83 Anion gap measurement may be of limited value in the presence of any alkalosis, especially in a combined acid base disorder. . 84 Note change in reference range as of 06/04/08. The change was based on recommendations from the [employer]. 85 A metabolite of Naproxen, O-desmethylnaproxen, has been shown to interfere with the Jendrassik-Yenifer method for measuring total bilirubin. Samples from patients who have taken Naproxen have shown spurious elevation in total bilirubin levels. 86 Because ethnic data is not always readily [...] 15-29 5 Kidney failure <15 (or dialysis) 87 * SERUM LEVELS OF PSA MEASURED USING THE ERLINDA [employer] ACCESS HYBRITECH IMMUNOASSAY SHOULD NOT BE INTERPRETED ABSOLUTE EVIDENCE OF THE PRESENCE OR ABSENCE OF DISEASE. THE PSA VALUE SHOULD BE USED IN CONJUNCTION WITH OTHER PERTINENT CLINICAL DIAGNOSTIC PROCEDURES. 88 CORRECTED RESULT! WRONG RESULT WAS 0 89 CBC and smear reviewed. Inverted PMN/lymph ratio noted. No blasts seen. REVIEWED BY JERONIMO SANTOS MD 90 Anion gap measurement may be of limited value in the presence of any alkalosis, especially in a combined acid base disorder. . 91 Note change in reference range as of 06/04/08. The change was based on recommendations from the [employer]. 92 Please note change in reference range effective 08 . 93 CHOLESTEROL INTERPRETATION: Desirable: Less than 200 MG/DL Borderline-High Risk: 200-239 MG/DL High-Risk: 240 MG/DL and over 94 HDL INTERPRETATION: Undesirable: High Risk: Less than 40 MG/DL Desirable: Low Risk: Greater than 60 MG/DL 95 LDL INTERPRETATION: Low Risk Optimal Level: LDL Less than 100 MG/DL Near or Above Optimal: LDL 100-129 MG/DL Borderline High Risk: LDL 130-159 MG/DL High Risk: LDL 160-189 MG/DL Very High Risk: LDL Greater than 189 MG/DL 96 CHOLESTEROL INTERPRETATION: Desirable: Less than 200 MG/DL Borderline-High Risk: 200-239 MG/DL High-Risk: 240 MG/DL and over 97 HDL INTERPRETATION: Undesirable: High Risk: Less than 40 MG/DL Desirable: Low Risk: Greater than 60 MG/DL 98 LDL INTERPRETATION: Low Risk Optimal Level: LDL Less than 100 MG/DL Near or Above Optimal: LDL 100-129 MG/DL Borderline High Risk: LDL 130-159 MG/DL High Risk: LDL 160-189 MG/DL Very High Risk: LDL Greater than 189 MG/DL 99 Anion gap measurement may be of limited value in the presence of any alkalosis, especially in a combined acid base disorder. . 100 Please note change in reference range effective 08 . 101 * SERUM LEVELS OF PSA MEASURED USING THE ERLINDA [employer] ACCESS HYBRITECH IMMUNOASSAY SHOULD NOT BE INTERPRETED ABSOLUTE EVIDENCE OF THE PRESENCE OR ABSENCE OF DISEASE. THE PSA VALUE SHOULD BE USED IN CONJUNCTION WITH OTHER PERTINENT CLINICAL DIAGNOSTIC PROCEDURES. 102 * SERUM LEVELS OF PSA MEASURED USING THE [employer] ACCESS HYBRITECH IMMUNOASSAY SHOULD NOT BE INTERPRETED ABSOLUTE EVIDENCE OF THE PRESENCE OR ABSENCE OF DISEASE. THE PSA VALUE SHOULD BE USED IN CONJUNCTION WITH OTHER PERTINENT CLINICAL DIAGNOSTIC PROCEDURES. 103 Anion gap measurement may be of limited value in the presence of any alkalosis, especially in a combined acid base disorder. . 104 Classification: Desirable . 105 Classification: Low . 106 CALCULATED LDL APPROXIMATES THE VALUE OF A DIRECT LDL MEASUREMENT. Classification: Near or above optimal . 107 * SERUM LEVELS OF PSA MEASURED USING THE ERLINDA AMISH ACCESS HYBRITECH IMMUNOASSAY SHOULD NOT BE INTERPRETED ABSOLUTE EVIDENCE OF THE PRESENCE OR ABSENCE OF DISEASE. THE PSA VALUE SHOULD BE USED IN CONJUNCTION WITH OTHER PERTINENT CLINICAL DIAGNOSTIC PROCEDURES. Procedures Date CPT Code Description Status Comment 01/05/2017 37197 Remove Impact Cerumen Requiring Completed Instrument, Unilateral 07/19/2016 63811 Biopsy Skin Lesion Single Completed 02/21/2016 27823 Electrocardiogram Complete Completed 07/12/2012 68708 Remove Impact Cerumen Requiring Completed Instrument, Unilateral 05/02/2012 23491 Remove Impact Cerumen Requiring Completed Instrument, Unilateral 04/27/2011 21491 Remove Impact Cerumen Requiring Completed Instrument, Unilateral 04/19/2011 35388 Remove Impact Cerumen Requiring Completed Instrument, Unilateral 04/12/2011 37532 Remove Impact Cerumen Requiring Completed Instrument, Unilateral 07/01/2007 71695 Remove Impact Cerumen Requiring Completed Instrument, Unilateral 09/14/2006 Colonoscopy Completed Document: 09/14/06 - DR Mejia update in [address] mejia recommends no repeat colonoscopy unless symptoms require it Encounters Type Date Location Provider CPT E/M Dx Office Visit 06/05/2018 10:40a [place] [address] S70.02xD W06.xxxD I10 Office Visit 04/30/2018 4:45p Main Office Liang Banuelos M.D. 18553 R53.83 R63.0 A41.81 Office Visit 04/23/2018 1:40p Main Office Tristian Marks 35466 N40.1 A41.81 E03.9 I10 Office Visit 02/12/2017 1:45p Main Office Elliot Rivera D.O. 36932 J30.9 Office Visit 01/09/2017 9:45a Main Office Elliot Rivera D.O. 48232 K40.30 Office Visit 01/05/2017 1:30p Main Office Elliot Rivera D.ORashmi 07963 H61.22 J30.9 Office Visit 12/19/2016 1:30p Main Office Elliot Rivera D.O. 03937 L40.0 I10 Office Visit 07/28/2016 2:30p Main Office Elliot Rivera D.O. 91747 D18.01 Office Visit 05/30/2016 9:45a Main Office Elliot Rivera D.O. 61808 I10 L40.0 R01.1 Office Visit 03/30/2016 11:45a Main Office Elliot Rivera D.O. 15420 E03.9 G40.89 R01.1 Office Visit 03/16/2016 1:30p Main Office Elliot Rivera D.ORashmi 45630 R60.1 E03.9 G51.0 I70.0 Office Visit 02/21/2016 2:30p Main Office Elliot Rivera D.O. 70662 K40.90 I70.0 G51.0 G40.89 E03.9 R94.31 Office Visit 01/24/2016 4:45p Main Office Elliot Rivera D.ORashmi 16056 G40.89 Office Visit 11/05/2015 1:45p Main Office Max Whitlock M.D. 42368 J20.9 Office Visit 10/01/2015 4:15p Main Office Max Whitlock M.D. 77911 J06.9 Office Visit 08/18/2015 2:45p Main Office Elliot Rivera D.ORashmi 59766 S97.109A J06.9 W22.8xxA Office Visit 03/15/2015 11:15a Main Office Elliot Rivera D.ORashmi 09373 440.0 603.9 553.20 Office Visit 08/14/2014 10:15a Main Office Elliot Rivera D.ORashmi 12227 351.0 375.15 Office Visit 03/16/2014 12:55p Main Office Elliot Rivera D.O. 87160 564.00 318.2 783.21 Office Visit 12/29/2013 9:30a Main Office Elliot Rivera D.O. 03602 110.4 Office Visit 07/28/2013 1:30p Main Office Liang Banuelos M.D. 00049 372.72 v07.2 v04.81 Office Visit 06/09/2013 10:45a Main Office Max Whitlock M.D. 68983 477.0 600.00 564.00 696.1 244.9 318.2 V70.0 Office Visit 03/13/2013 10:45a Main Office Max Whitlock M.D. 08828 550.90 782.3 318.2 477.0 244.9 600.00 Office Visit 03/07/2013 11:00a Main Office Max Whitlock M.D. 97711 782.3 Office Visit 07/30/2012 3:20p Main Office Tristian Marks 70605 696.8 Office Visit 07/12/2012 11:15a Main Office Max Whitlock M.D. 90554 380.4 684 V65.49 v04.81 v07.2 Office Visit 06/07/2012 10:45a Main Office Max Whitlock M.D. 93544 V77.91 244.9 564.00 477.0 318.2 V70.0 V76.51 Office Visit 05/02/2012 10:20a Main Office Tristian Marks 93783 380.4 318.2 V41.2 Office Visit 04/05/2012 10:20a Main Office Tristian Marks 11490 380.4 Office Visit 03/21/2012 1:45p Main Office Max Whitlock M.D. 85934 892.0 707.00 Office Visit 07/04/2011 12:55p Main Office Max Whitlock M.D. 79696 784.7 380.4 V72.83 Office Visit 06/13/2011 4:30p Main Office Max Whitlock M.D. 48060 681.00 Office Visit 06/06/2011 2:45p Main Office Max Whitlock M.D. 61174 244.9 696.1 564.00 477.0 318.2 V65.49 V70.0 Office Visit 05/01/2011 4:20p Main Office Tristian Marks 42555 682.8 Office Visit 03/09/2011 2:00p Main Office Max Whitlock M.D. 90003 780.79 244.9 784.7 696.1 Office Visit 08/04/2010 4:20p Main Office Tristian Marks 13961 V04.81 681.02 Office Visit 05/20/2010 10:15a Main Office Max Whitlock M.D. 65387 244.9 564.00 477.0 696.1 600.00 318.2 V70.0 V76.51 V76.44 Office Visit 04/19/2009 1:30p Main Office Max Whitlock M.D. 68514 244.9 564.00 477.0 696.1 600.00 318.2 Office Visit 11/23/2008 1:10p Main Office Max Whitlock M.D. 36333 920 782.1 Office Visit 04/09/2008 9:05a Main Office Max Whitlock M.D. 75194 244.9 272.4 564.00 477.0 696.1 600.00 318.2 V76.51 V76.44 V70.0 Office Visit 07/01/2007 3:00p Main Office Max Whitlock M.D. 37126 380.4 564.00 564.0 Office Visit 04/08/2007 12:55p Main Office Max Whitlock M.D. 10760 244.9 477.0 696.1 600.00 564.00 564.0 V76.44 318.2 V76.51 V70.0 Office Visit 06/19/2006 5:00p Main Office Max Whitlock M.D. 23311 372.03 Office Visit 03/06/2006 2:30p Main Office Max Whitlock M.D. 71716 244.9 696.1 477.0 600.00 600.0 796.4 318.2 V70.0 V76.51 564.0 V07.2 V03.82 Office Visit 02/23/2005 3:00p Main Office bridgett 69302 460 Office Visit 02/10/2004 2:30p Main Office Max Whitlock M.D. 84849 244.9 V06.5 318.2 600.00 600.0 696.1 477.0 Office Visit 09/29/2003 5:00p Main Office Max Whitlock M.D. 97592 461.9 Plan of Care Future Appointment(s):06/21/2018 9:15 am - Elliot Rivera D.O. at [facility]5406/05/2018 - Teetee Santamaria, PAS70.02xD Contusion of left hip, subsequent encounterComments:Minor contusion left hip s/p fall out of bed. Patient doing well, no apparent pain or change in gait. Monitor.W06.xxxD Fall from bed, subsequent [id number] Essential (primary) hypertensionComments:Initial BP was high but recheck was normal. Monitor.
[2018-06-23 12:02] VITALS: BP 134/73
== END 2018-06-23 12:01 | disposition home or self-care (01) ==
LOC: ED 07:52
DX: R31.9 Hematuria, unspecified (principal); Z46.6 Encounter for fitting and adjustment of urinary device; S37.30XA Unspecified injury of urethra, initial encounter; X58.XXXA Exposure to other specified factors, initial encounter; Y92.9 Unspecified place or not applicable
CPT/HCPCS: 99283

== ENCOUNTER 2018-07-13 08:39 | Emergency (ER) | payer MEDICARE, MEDICAID ==
--- OUTSIDE RECORDS SUMMARY | 2018-07-13 09:37 | XMS REPORT ---
:1935 External Reference #:[id number] Author Organization [facility] Address [address] [place] [address] Phone [phone] Care Team Providers Name Role Phone HCP given Primary Care Physician Unavailable Payers Type Date Identification Numbers Payment Provider Subscriber Medicare Primary Policy Number: [id number] [facility] Leyla Carranza Services PayID: [id number] [facility] [address] Policy Number: [id number] Medicaid Leyla Carranza Group Name: 2 [address] [facility] PayID: [id number] [place] [address] Problems Date Description Provider Status Onset: 02/10/2004 [...] Smoke-Free Home is smoke-free General Resident of [facility] Cigarette Use Denies Cigarette Use Cigarette Use 07/04/2011 Tobacco Of Any Kind Denies Use ETOH Use Denies alcohol use Smoking Non Smoker / No Tobacco Exercise Type/Frequency Exercises sporadically Allergies, Adverse Reactions, Alerts Date Description Reaction Status Severity Comments 03/02/2005 Augmentin REACTION UNKNOWN WAS ON FILE ON ADM active TO [facility] Medications Medication Date Status Form Strength Qnty SIG Indications Ordering Provider Clonazepam 06/21 Active Tablets 0.5mg 5tabs take 10/16 F41.9 tablet by Elliot, mouth 30 D.O. min prior to cystoscopy/ tovar replacement /lab draw for anxiety Speech 06/21 Active [facility] F[facility] Elliot, Swallow Eval D.O. [...] PhD Carave 06/15 Active QS apply t [facility], Moisturizing legs & body Elliot, Cream [...] lesions bid prn dryness, itching or redness Harmony Saline 06/13 Active Gel 14.1u Apply nits [...] Active Tablets 5000Unit 90tab 1 tab by [facility] s mouth every Elliot, day or 7 D.O. tabs once a week Multi 05/12 Active Tablets 90tab 1 po daily. Miguel, Complete/Iron s Elliot, D.O. Humira 03/11 Active PSKT 40mg/0.8M subq inj L every other week as directed Triamcinolone 08/13 Active Ointment 0.1% 454un apply twice [facility], Acet its daily for 2 Elliot, weeks D.O. alternating with diprolene ,not to face or folds (refer to rx#[id number] ) Peridex 0.12% 06/04 Active 473un Swab 1 [facility], Oral Rinse its Teaspoon On Elliot, Gums Twice D.O. Daily For Oral Care Nasal Moist Gel 02/02 Active Gel QS apply to [facility] inside of Elliot, nose 2 x a D.O. day # 90 day supply. Tar Soaks 02/19 Active twice a L40.0 Tangoren week MD Nichole Diprolene 02/19 Active Ointment 0.05% 45uni Apply To L40.0 [facility] ts Affected Elliot, Areas Twice D.O. Daily Times 2 Weeks Alternating With Triamcinolo ne, Not To Face Or Folds Vectical 02/19 Active Ointment 3mcg/GM 100un Apply To L40.0 [facility] its Legs Twice Elliot, Daily After D.O. Bath & Before Bed. (Psoriasis) Enulose 07/07 Active Solution 10GM/15ML 950un [address] [facility] its tablespoon Elliot, every day D.O. [...] 60tab give 2 s tablets po A. [id number] prn Bridgett, for pain or M.D. fever >101.0f Aspirin Low 11/28 Active Chewtabs 81mg 15uni Take [address] [facility] ts Tablet By Elliot, Mouth Every D.O. Other Day (Prevent Heart Disease) Zincon Dandruff Active Shampoo 1% QS 3 x a week Sopchak, Elliot, D.O. Westcort 0.2% Active 45uni [facility] ts Facial Elliot, Lesions D.O. Twice Daily as Needed Dryness, Itching Or Redness. Must Be Applied By Amap Notify RN When Used, Dheeraj N Tarsum Active Shampoo 10-5% 472un 2 Capfuls , its AT Bath Elliot, Time Every D.O. Day (Tar Bath) For Washing Body Atorvastatin 04/18 Hx Tablets 40mg 90tab 1 by mouth E78.4 [facility], s every day Elliot, - [...] Hx Powder 3350NF 510un [address] [facility] its 8 oz. of Elliot, - water by D.O. 03/21 mouth every day Hold for > 3 stools/day Clonazepam 06/15 Hx Tablets 0.25mg 3tabs [address] [facility] Dispers morning Elliot, - crushed as D.O. [...] Tablets 100mg 20tab 1 twice a J20.9 [facility] A. - [facility] M.D. Doxycycline 10/01 Hx Tablets 100mg 20tab 1 twice a J06.9 [facility] A. - days M[facility] With [facility], 11/04.D Bacitracin 09/30 Hx Ointment 500Unit/G prn [...] - D.O. 02/22 Polytrim 09/03 Hx Solution 96075-2.1 10uni Instill 1 Unit/ML-% ts Drop In [...] times/day D.O. 08/18 Nystatin 08/03 Hx Cream [id number] 30uni Apply 1 Sopchak t/GM ts Application Elliot, - Topically D.O. 02/12 To Area On Both Buttocks 2 Times Per Day For Rash Nystatin 12/29 Hx Powder 701788Dlb 60uni Dust Powder 110.4 Silco t/GM ts [...] in well A. - to area on Merged With [facility], 04/20 foot M.D. Sulfamethoxazol 06/13 Hx Tablets 800-160mg 20tab 1 po bid 681.00 Max e/Trimethoprim s A. DS - Merged With [facility], 06/23 M.D. 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 - mincemeat maker only ncjesica, 07/06. Syringe 1 cc 06/06 Hx 1unit V65.49 Max With 25GA 1 10/16 s A. [facility] 07/06 M.D Deep Sea Nasal 06/05 Hx Solution 0.65% 1bott 1 spray per Miguel le nostril Elliot, - daily D.O. 06/13 Cephalexin 04/28 Hx Tablets 500mg 1 po qid X 5 Days - 06/05 Debrox 03/28 Hx Solution 6.5% 1bott instill le 5-10 drops A. - in ear qid, [facility], 03/28 3 days, M.D. keep drops in ear for several min Bactroban Nasal 03/07 Hx Ointment 2% apply to 784.7 affected r, - area in [place], 06/05 right nostril bid for 2-4wks Saline 0.65% 08/23 Hx Nasal [place] 44uni [place] 1 ts [place] In A. - Each [facility], [...] tid prn Max ARashmi 04/09/2008 Yohannes Whitlock Climax Bismuth 11/28/2005 - Hx 1Bott 30 cc PO After Max A. Liquid 04/09/2008 le Each Loose Bridgett Stool; Not To M.DRashmi Exceed tid X3days Mineral Oil 11/28/2005 - Hx 1Bott as Directed Max ARashmi 01/19/2007 marnie Whitlock M.D. Bacitracin 11/28/2005 - Hx 1Bott Apply Max A. Ointment 04/09/2008 le Topically bid harvey Whitlock To Open M.DRashmi Areas Katrin D 02/23/2005 - Hx Tablets 60mg;12 60tab 1 po bid for 460 Max A. 01/07/2007 0 mg s allergy Yohannes Whitlock Flonase 02/03/2005 - Hx [place] 50mcg/S 2unit 2 sprays in Max A. [...] QSX1M 1 spray ea 477.0 Max Bragg [place] 02/02/2014 o nostril qd Yohannes Whitlock Flonase [...] 1 every day Sopchadonna, Iron 05/12/2015 s Elloit DRashmiORashmi Fleets Enema 02/11/2004 - Hx 5unit [address] [facility], 04/21/2016 s rectum as Elliot, needed with [...] po 272.4 Max Bragg Release 08/21/2013 s [facility] Yohannes Whitlock Ferrous Sulfate 12/04/2003 [...] CPT Code Status Date Vaccine Lot # 78038 Given 06/21/2018 Influenza Vaccine Split Virus Preservative Free Im [id number] Use 43573 Given 06/20/2017 Influenza Virus Vaccine, Quadrivalent, Split, [id number] Preservative Free 89835 Given 06/16/2016 Influenza Virus Vaccine, Quadrivalent, Split, [id number] Preservative Free 51712 Given 06/14/2015 Zostavax [id number] 53014 Given 06/14/2015 Influenza Virus Vaccine, Quadrivalent, Split, [id number] Preservative Free 09104 Given 06/14/2015 Prevnar 13 [id number] 20171 Given 06/11/2014 Adacel or Boostrix, TDaP [id number] 18707 Given 06/11/2014 Influenza Vaccine Split Virus Preservative Free Im [id number] Use 26980 Given 07/28/2013 Flu, Split Virus 3Yrs [id number] 70571 Given 07/12/2012 Flu, Split Virus 3Yrs [id number] 33786 Given 08/22/2011 Flu, Split Virus 3Yrs [id number] 70091 Given 08/04/2010 Flu, Split Virus 3Yrs [id number] 47043 Given 09/22/2009 Flu, Split Virus 3Yrs [id number] 22181 Given 08/27/2008 Flu, Split Virus 3Yrs [id number] 28741 Given 08/29/2007 Flu, Split Virus 3Yrs [id number] 58158 Given 08/27/2006 Flu, Split Virus 3Yrs [id number] 02938 Given 03/06/2006 Pneumococcal Immunization [id number] 75176 Given 08/12/2004 Flu, Split Virus 3Yrs 50737 Given 02/10/2004 Td Immunization 76683 Given 08/01/2003 Flu, Split Virus 3Yrs Vital [...] Epi Occ./0-2 Ua Other sperm Ua Specific [place] 1.025 Ua Blood moderate [place] Ua PH [...] Color Yellow Urine Appearance Turbid Urine Specific [place] 1.015 1.010-1.030 Urine pH 7.0 5-9 Urine [...] Color Yellow Urine Appearance Clear Urine Specific [place] 1.017 1.010-1.030 Urine pH 6.0 5-9 Urine [...] Color Yellow Urine Appearance Clear Urine Specific [place] 1.011 1.010-1.030 Urine pH 6.0 5-9 Urine [...] Color YELLOW Yellow Appearance-Urine CLEAR Clear Specific [place]-Ur 1.013 1.010-1.030 Esterase-Urine NEGATIVE Negative Nitrite NEGATIVE Negative Qknacgvtemlf-Cv-BDE NEGATIVE Negative Protein-Urine NEGATIVE Negative PH-Urine 5.5 [...] 5 Kidney failure <15 (or dialysis) 4 [id number] Comment: urethra 5 SEE RESULT BELOW Name: TREYLEYLA : [address]: Binh Lee MD Acct: [id number] Unit: [id number] AGE: 83 Location: [facility] Re05/18/18 SEX: M Status: DEP ER SPEC: [id number] LAVERN: 05/18/181146 [facility] DR: Maru BOOTHE REQ: [id number] RECD: 05/18/18 STATUS: SHAHEED SOLANO DR: Elliot Cornelius MD _ SOURCE: PERINEUM SPDESC: ORDERED: MRSA/SA SSTI, Culture Stain COMMENTS: [id number] Comment: urethra Procedure Result Reported Site MRSA/S. aureus SSTI PCR Final 05/18/18- 2220 ML Organism 1 MRSA NEGATIVE Organism 2 S.AUREUS NEGATIVE Wound/Misc Gram Stain Final 05/19/18- 0741 ML 2+ Epithelial Cells 3+ Nucleated Cells 1+ Gram Positive Cocci Wound/Misc Culture Final 05/20/18- 1003 ML Organism 1 NORMAL SARA Quantity 1+ * ML - Main Lab . END OF REPORT DEPARTMENT OF PATHOLOGY, [address] [place] [address] Jeronimo Santos M.D. Director [facility] # [id number] 6 SEE RESULT BELOW Name: LEYLA CARRANZA : [address]: Binh Lee MD Acct: [id number] Unit: [id number] AGE: 83 Location: [facility] Re05/18/18 SEX: M Status: DEP ER SPEC: [id number] LAVERN: 05/18/18-[address] [facility] [address]: Maru BOOTHE REQ: [id number] RECD: 05/18/18 STATUS: RES [facility] DR: Elliot Cornelius MD _ SOURCE: PERINEUM SPDESC: ORDERED: Culture Stain COMMENTS: [id number] Comment: urethra Procedure Result Reported Site Wound/Misc Gram Stain Preliminary 05/18/18- 175 ML 3+ Epithelial Cells 1+ Nucleated Cells 1+ Gram Positive Cocci Wound/Misc Culture PENDING * ML - Main Lab . END OF REPORT DEPARTMENT OF PATHOLOGY, [address] [place] [address] Jeronimo Santos M.D. Director [facility] # [id number] 7 [id number] SEE RESULT BELOW Name: LEYLA CARRANZA : [address]: Binh Lee MD Acct: [id number] Unit: [id number] AGE: 83 Location: [facility] Re05/18/18 SEX: M Status: DEP ER SPEC: [id number] LAVERN: 05/18/18-[address] [facility] [address]: Maru BOOTHE REQ: [id number] RECD: 05/18/18 STATUS: SHAHEED SOLANO DR: Elliot Cornelius MD _ SOURCE: URINE SPDESC: ORDERED: Urine Culture COMMENTS: [id number] Procedure Result Reported Site Urine Culture Final 05/19/18- 1309 ML No Growth (<1,000 CFU/mL) * ML - Main Lab . END OF REPORT DEPARTMENT OF PATHOLOGY, [address] [place] [address] Jeronimo Santos M.D. Director [facility] # [id number] 9 [id number] SEE RESULT BELOW Name: LEYLA CARRANZA : [address]: Sandoval Davila MD Acct: [id number] Unit: [id number] AGE: 83 Location: [facility] Re05/01/18 SEX: M Status: REG REF SPEC: [id number] LAVERN: 05/01/18-[address] [facility] [address]: Sandoval Davila MD REQ: [id number] RECD: 05/01/18-9405 STATUS: SHAHEED [facility] : Elliot Rivera DO _ SOURCE: URINE [facility]: ORDERED: Urine Culture COMMENTS: [id number] QUERIES: Urine Source: Catheterization Procedure Result Reported Site Urine Culture Final 05/03/18- 0858 ML Organism 1 KLEBSIELLA PNEUMONIAE [place] Count 25-50,000 (Moderate) CFU/ML 1. KLEBSIELLA PNEUMONIAE [...] . END OF REPORT DEPARTMENT OF PATHOLOGY, [address] [place] [address] Jeronimo Santos M.D. Director [facility] # [id number] 11 [facility] Severe Sepsis and Septic Shock Management [...] (or dialysis) 13 Result TnIDx:1.23 Called to [id number] at: 12:57:03 by:[email or web address] Read back by: [id number] 14 >100 to <200 pg/mL: likely compensated congestive heart failure (CHF) 200 to 400 pg/mL: likely moderate CHF >400 pg/mL: likely moderate to severe CHF 15 SEE RESULT BELOW Name: LEYLA CARRANZA : [address]: Ashly Jeter MD Acct: [id number] Unit: [id number] AGE: 83 Location: [place] [address] Re04/14/18 SEX: M Status: ADM IN SPEC: [id number] LAVENR: 04/14/18-[address] [facility] [address]: Dain Bernstein MD REQ: [id number] RECD: 04/14/18 STATUS: SHAHEED SOLANO DR: Elliot Rivera DO _ SOURCE: URINE [facility]: ORDERED: Urine Culture Procedure Result Reported Site Urine Culture Final 04/16/18- 0839 ML Organism 1 ENTEROCOCCUS FAECALIS [place] Count 50-75,000 (Many) CFU/ML 1. ENTEROCOCCUS FAECALIS [facility].I.C. RX --------- ------ Ampicillin <=2 S Penicillin 2 S Ciprofloxacin 1 S Gentamicin High Level S Levofloxacin 1 S Linezolid 2 S Nitrofurantoin <=16 S * Quinupristin/Dalfopristin R * Streptomycin High Level S Tetracycline >=16 R Tigecycline <=0.12 S Vancomycin 2 S Imipenem-Deduced S * Ampicillin/Sulbactam-Deduced S * These antibiotics are not available in the [facility] Formulary Contact the Microbiology Department for any additional antibiotic reporting. * - [facility] Lab . END OF REPORT DEPARTMENT OF PATHOLOGY, [address] [place] [address] Jeronimo Santos M.D. Director [facility] # [id number] 16 SEE RESULT BELOW Name: LEYLA CARRANZA : [address]: Ash Mcdermott MD Acct: [id number] Unit: [id number] AGE: 83 Location: [place] [address] Re04/14/18 Dis: 04/18/18 SEX: M Status: DIS IN SPEC: [id number] LAVERN: 04/14/18-[address] [facility] [address]: Dain Bernstein MD REQ: [id number] RECD: 04/14/18 STATUS: SHAHEED SOLANO DR: Elliot Rivera DO _ SOURCE: BLOOD,VENO [facility]: ORDERED: Blood Cult Procedure Result Reported Site Aerobic Culture Bottle Final 04/19/18- 1215 ML No Growth Day 5 Anaerobic Culture Bottle Final 04/19/18- 1215 ML No Growth Day 5 * ML - Main Lab . END OF REPORT DEPARTMENT OF PATHOLOGY, [address] [place] [address] Jeronimo Santos M.D. Director [facility] # [id number] 17 [id number] 19 [id number] 20 Because ethnic data is not always [...] 5 Kidney failure <15 (or dialysis) 21 [id number] 22 [id number] 23 [id number] 24 [id number] 25 Normal Range 180 to 914 Indeterminate Range 145 to 180 Deficient Range <145 26 SEE RESULT BELOW Name: LEYLA CARRANZA : [address]: Elliot Rivera DO Acct: [id number] Unit: [id number] AGE: 81 Location: [facility] Re07/19/16 SEX: M Status: REG REF SPEC: [id number] LAVERN: 07/19/[address] [facility] [address]: Elliot Rivera DO REQ: [id number] RECD: 07/20/166549 STATUS: SOUT _ ORDERED: LEVEL IV COMMENTS: [id number] FINAL DIAGNOSIS Skin, left ankle, biopsy: -- [...] performed at Main Lab DEPARTMENT OF PATHOLOGY, [address] [place] [address] Jeronimo Santos M.D. Director [facility] # [id number] 27 [id number] 28 Desirable <150 Borderline high 150-199 High [...] 5 Kidney failure <15 (or dialysis) 33 [id number] 34 Normal Range 180 to 914 Indeterminate [...] 0.03 ng/mL Not supportive of diagnosis of [place] 0.03 - 0.50 ng/mL Indeterminate: suggest serial studies if clinically indicated. Greater than 0.5 ng/mL Consistent with diagnosis of [place] 44 Because ethnic data is not always [...] when interpreting QuantiFERON-TB results. Test Performed by: [place] [address] Pourer Off: Max Hoffman II, M.D., Ph.D. 48 Because [...] has been shown to interfere with the Jendrassik-Coffey method for measuring total bilirubin. Samples from [...] has been shown to interfere with the Jendrassik-Coffey method for measuring total bilirubin. Samples from [...] change was based on recommendations from the [place] [employer]. 83 A metabolite of Naproxen, O-desmethylnaproxen, has been shown to interfere with the Jendrassik-Coffey method for measuring total bilirubin. Samples from [...] change was based on recommendations from the [place] [employer]. 87 A metabolite of Naproxen, [...] SERUM LEVELS OF PSA MEASURED USING THE writewith ACCESS HYBRITECH IMMUNOASSAY SHOULD NOT BE INTERPRETED [...] change was based on recommendations from the [place] [employer]. 94 Please note change in [...] LEVELS OF PSA MEASURED USING THE ERLINDA Sunrise ACCESS HYBRITECH IMMUNOASSAY SHOULD NOT BE INTERPRETED [...] LEVELS OF PSA MEASURED USING THE ERLINDA Sunrise ACCESS HYBRITECH IMMUNOASSAY SHOULD NOT BE INTERPRETED ABSOLUTE EVIDENCE OF THE PRESENCE OR ABSENCE OF DISEASE. THE PSA VALUE SHOULD BE USED IN CONJUNCTION WITH OTHER PERTINENT CLINICAL DIAGNOSTIC PROCEDURES. Procedures Date CPT Code Description Status Comment 06/21/2018 55099 Electrocardiogram Complete Completed 01/05/2017 20524 Remove Impact Cerumen Requiring Completed Instrument, Unilateral 07/19/2016 14013 Biopsy Skin Lesion Single Completed 02/21/2016 05103 Electrocardiogram Complete Completed 07/12/2012 07047 Remove Impact Cerumen Requiring Completed Instrument, Unilateral 05/02/2012 09205 Remove Impact Cerumen Requiring Completed Instrument, Unilateral 04/27/2011 75275 Remove Impact Cerumen Requiring Completed Instrument, Unilateral 04/19/2011 09702 Remove Impact Cerumen Requiring Completed Instrument, Unilateral 04/12/2011 14887 Remove Impact Cerumen Requiring Completed Instrument, Unilateral 07/01/2007 98221 Remove Impact Cerumen Requiring Completed Instrument, Unilateral 09/14/2006 Colonoscopy Completed Document: 09/14/06 - DR Mejia update in [address] mejia recommends no repeat colonoscopy unless symptoms require it Encounters Type Date Location Provider CPT E/M Dx Office Visit 06/21/2018 9:15a Main Office Elliot Rivera D.O. 50844 I10 R01.1 Z00.01 L40.0 E03.9 I70.0 G40.89 G51.0 F73 K59.00 W22.8xxA F41.9 K40.30 Z23 Z41.8 Office Visit 06/05/2018 10:40a [place] [address] S70.02xD W06.xxxD I10 Office Visit 04/30/2018 4:45p Main Office Liang Banuelos M.D. 58138 R53.83 R63.0 A41.81 Office Visit 04/23/2018 1:40p Main Office Marga Dunaway, PElina 78441 N40.1 A41.81 E03.9 I10 Office Visit 02/12/2017 1:45p Main Office Elliot Rivera D.O. 79044 J30.9 Office Visit 01/09/2017 9:45a Main Office Elliot Rivera D.O. 96092 K40.30 Office Visit 01/05/2017 1:30p Main Office Elliot Rivera D.O. 03810 H61.22 J30.9 Office Visit 12/19/2016 1:30p Main Office Elliot Rivera D.O. 53721 L40.0 I10 Office Visit 07/28/2016 2:30p Main Office Elliot Rivera D.O. 90511 D18.01 Office Visit 05/30/2016 9:45a Main Office Elliot Rivera D.O. 25251 I10 L40.0 R01.1 Office Visit 03/30/2016 11:45a Main Office Elliot Rivera D.O. 70738 E03.9 G40.89 R01.1 Office Visit 03/16/2016 1:30p Main Office Elliot Rivera D.O. 76806 R60.1 E03.9 G51.0 I70.0 Office Visit 02/21/2016 2:30p Main Office Elliot Rivera D.O. 05871 K40.90 I70.0 G51.0 G40.89 E03.9 R94.31 Office Visit 01/24/2016 4:45p Main Office Elliot Rivera D.O. 86727 G40.89 Office Visit 11/05/2015 1:45p Main Office Max Whitlock M.D. 49040 J20.9 Office Visit 10/01/2015 4:15p Main Office Max Whitlock M.D. 64569 J06.9 Office Visit 08/18/2015 2:45p Main Office Elliot Rivera D.O. 22216 S97.109A J06.9 W22.8xxA Office Visit 03/15/2015 11:15a Main Office Elliot Rivera D.O. 17142 440.0 603.9 553.20 Office Visit 08/14/2014 10:15a Main Office Elliot Rivera D.O. 91350 351.0 375.15 Office Visit 03/16/2014 12:55p Main Office Elliot Rivera D.O. 32309 564.00 318.2 783.21 Office Visit 12/29/2013 9:30a Main Office Elliot Rivera D.O. 27805 110.4 Office Visit 07/28/2013 1:30p Main Office Liang Banuelos M.D. 78583 372.72 v07.2 v04.81 Office Visit 06/09/2013 10:45a Main Office Max Whitlock M.D. 99659 477.0 600.00 564.00 696.1 244.9 318.2 V70.0 Office Visit 03/13/2013 10:45a Main Office Max Whitlock M.D. 22704 550.90 782.3 318.2 477.0 244.9 600.00 Office Visit 03/07/2013 11:00a Main Office Max Whitlock M.D. 77669 782.3 Office Visit 07/30/2012 3:20p Main Office Tristian Marks 87530 696.8 Office Visit 07/12/2012 11:15a Main Office Max Whitlock M.D. 72236 380.4 684 V65.49 v04.81 v07.2 Office Visit 06/07/2012 10:45a Main Office Max Whitlock M.D. 32508 V77.91 244.9 564.00 477.0 318.2 V70.0 V76.51 Office Visit 05/02/2012 10:20a Main Office Tristian Marks 62728 380.4 318.2 V41.2 Office Visit 04/05/2012 10:20a Main Office Tristian Marks 78752 380.4 Office Visit 03/21/2012 1:45p Main Office Max Whitlock M.D. 54490 892.0 707.00 Office Visit 07/04/2011 12:55p Main Office Max Whitlock M.D. 77855 784.7 380.4 V72.83 Office Visit 06/13/2011 4:30p Main Office Max Whitlock M.D. 18374 681.00 Office Visit 06/06/2011 2:45p Main Office Max Whitlock M.D. 08151 244.9 696.1 564.00 477.0 318.2 V65.49 V70.0 Office Visit 05/01/2011 4:20p Main Office Tristian Marks 29784 682.8 Office Visit 03/09/2011 2:00p Main Office Max Whitlock M.D. 03493 780.79 244.9 784.7 696.1 Office Visit 08/04/2010 4:20p Main Office Tristian Marks 50853 V04.81 681.02 Office Visit 05/20/2010 10:15a Main Office Max Whitlock M.D. 79399 244.9 564.00 477.0 696.1 600.00 318.2 V70.0 V76.51 V76.44 Office Visit 04/19/2009 1:30p Main Office Max Whitlock M.D. 43527 244.9 564.00 477.0 696.1 600.00 318.2 Office Visit 11/23/2008 1:10p Main Office Max Whitlock M.D. 85632 920 782.1 Office Visit 04/09/2008 9:05a Main Office Max Whitlock M.D. 70264 244.9 272.4 564.00 477.0 696.1 600.00 318.2 V76.51 V76.44 V70.0 Office Visit 07/01/2007 3:00p Main Office Max Whitlock M.D. 04961 380.4 564.00 564.0 Office Visit 04/08/2007 12:55p Main Office Max Whitlock M.D. 10132 244.9 477.0 696.1 600.00 564.00 564.0 V76.44 318.2 V76.51 V70.0 Office Visit 06/19/2006 5:00p Main Office Max Whitlock M.D. 41201 372.03 Office Visit 03/06/2006 2:30p Main Office Max Whitlock M.D. 93144 244.9 696.1 477.0 600.00 600.0 796.4 318.2 V70.0 V76.51 564.0 V07.2 V03.82 Office Visit 02/23/2005 3:00p Main Office bridgett 95759 460 Office Visit 02/10/2004 2:30p Main Office Max Whitlock M.D. 49048 244.9 V06.5 318.2 600.00 600.0 696.1 477.0 Office Visit 09/29/2003 5:00p Main Office Max Whitlock M.D. 86026 461.9 Plan of Care Future Appointment(s):06/25/2019 1:30 pm - Elliot Rivera D.O. at Main Emwdht9406/21/2018 - Elliot Rivera D.O.I10 Essential (primary) hypertensionFollow up:1 year DMHMR01.1 Cardiac murmur, ruqazmsqcxyN62.01 Encounter for general adult medical exam w abnormal moxhmkfhX69.0 Psoriasis lpeibotiK51.9 Hypothyroidism, tulkmjosysmU73.0 Atherosclerosis of dwrntP46.89 Other dmnygrbpT40.0 Jain's ttglqU70 Profound intellectual disabilitiesNew Medication:Speech Pathology Swallow EvalK59.00 Constipation, whmgdcdnrgeW57.8xxA Striking against or struck by other objects, init bjgzcsB24.9 Anxiety disorder, unspecifiedNew Medication:Clonazepam 0.5 mgK40.30 Unil inguinal hernia, w obst, w/o gangr, not spcf as sibdkH49 Encounter for knmltpwbkotaL52.8 Encntr for oth proc for purpose oth than remedy health state
--- OUTSIDE RECORDS SUMMARY | 2018-07-13 09:39 | XMS REPORT ---
:1935 External Reference #:[id number] Author Organization [facility] Address [address] [place] [address] Phone [phone] Care Team Providers Name Role Phone HCP given Primary Care Physician Unavailable Payers Type Date Identification Numbers Payment Provider Subscriber Medicare Primary Policy Number: [id number] [facility] Leyla Carranza Services PayID: [id number] [facility] [address] Policy Number: [id number] Medicaid Leyla Carranza Group Name: 2 [address] [facility] PayID: [id number] [place] [address] Problems Date Description Provider Status Onset: 02/10/2004 [...] Smoke-Free Home is smoke-free General Resident of [facility] Cigarette Use Denies Cigarette Use Cigarette Use 07/04/2011 Tobacco Of Any Kind Denies Use ETOH Use Denies alcohol use Smoking Non Smoker / No Tobacco Exercise Type/Frequency Exercises sporadically Allergies, Adverse Reactions, Alerts Date Description Reaction Status Severity Comments 03/02/2005 Augmentin REACTION UNKNOWN WAS ON FILE ON ADM active TO [facility] Medications Medication Date Status Form Strength Qnty SIG Indications Ordering Provider Clonazepam 06/21 Active Tablets 0.5mg 5tabs take 10/16 F41.9 tablet by Elliot, mouth 30 D.O. min prior to cystoscopy/ tovar replacement /lab draw for anxiety Speech 06/21 Active Evaluate F73 [facility] and Treat Elliot, Swallow Eval D.O. [...] PhD Carave 06/15 Active QS apply t [facility], Moisturizing legs & body Elliot, Cream [...] lesions bid prn dryness, itching or redness Kennett Saline 06/13 Active Gel 14.1u Apply nits [...] 4tabs 2 tabs 1 G40.89 hour prior Ellito, to D.O. procedure ok to repeat in [...] Active Tablets 5000Unit 90tab 1 tab by [facility] s mouth every Elliot, day or 7 D.O. tabs once a week Multi 05/12 Active Tablets 90tab 1 po daily. Miguel, Complete/Iron s Elliot, D.O. Humira 03/11 Active PSKT 40mg/0.8M subq inj L every other week as directed Triamcinolone 08/13 Active Ointment 0.1% 454un apply twice [facility], Acet its daily for 2 Elliot, weeks D.O. alternating with diprolene ,not to face or folds (refer to rx#[id number] ) Peridex 0.12% 06/04 Active 473un Swab 1 [facility], Oral Rinse its Teaspoon On Elliot, Gums Twice D.O. Daily For Oral Care Nasal Moist Gel 02/02 Active Gel QS apply to [facility] inside of Elliot, nose 2 x a D.O. day # 90 day supply. Tar Soaks 02/19 Active twice a L40.0 Tangoren week MD Nichole Diprolene 02/19 Active Ointment 0.05% 45uni Apply To L40.0 [facility] ts Affected Elliot, Areas Twice D.O. Daily Times 2 Weeks Alternating With Triamcinolo ne, Not To Face Or Folds Vectical 02/19 Active Ointment 3mcg/GM 100un Apply To L40.0 [facility] its Legs Twice Elliot, Daily After D.O. Bath & Before Bed. (Psoriasis) Enulose 07/07 Active Solution 10GM/15ML 950un 2 K59.01 [facility] its tablespoon Elliot, every day D.O. [...] 60tab give 2 s tablets po A. [id number] prn Bridgett, for pain or M.D. fever >101.0f Aspirin Low 11/28 Active Chewtabs 81mg 15uni Take 1 [facility] ts Tablet By Elliot, Mouth Every D.O. Other Day (Prevent Heart Disease) Zincon Dandruff Active Shampoo 1% QS 3 x a week Sopchak, Elliot, D.O. Westcort 0.2% Active 45uni [facility] Cre 15 ts Facial Elliot, Lesions D.O. Twice Daily as Needed Dryness, Itching Or Redness. Must Be Applied By Amap Notify RN When Used, Dheeraj N Tarsum Active Shampoo 10-5% 472un 2 Capfuls , its AT Bath Elliot, Time Every D.O. Day (Tar Bath) For Washing Body Atorvastatin 04/18 Hx Tablets 40mg 90tab 1 by mouth E78.4 [facility], s every day Elliot, - D.O. [...] Hx Powder 3350NF 510un 1 capful in [facility] its 8 oz. of Elliot, - water by D.O. 03/21 mouth every day Hold for > 3 stools/day Clonazepam 06/15 Hx Tablets 0.25mg 3tabs 1 in the [facility] Dispers morning Elliot, - crushed as [...] Tablets 100mg 20tab 1 twice a J20.9 [facility] 11[facility] M.D. Doxycycline 10/01 Hx Tablets 100mg 20tab 1 twice a J06.9 [facility] 10 A. - days [facility], 11/04.D Bacitracin 09/30 Hx Ointment 500Unit/G [...] - D.O. 02/22 Polytrim 09/03 Hx Solution 84297-2.1 10uni Instill 1 Unit/ML-% ts Drop In [...] times/day D.O. 08/18 Nystatin 08/03 Hx Cream [id number] 30uni Apply 1 Sopchak t/GM ts Application Elliot, - Topically D.O. 02/12 To Area On Both Buttocks 2 Times Per Day For Rash Nystatin 12/29 Hx Powder 100307Jcn 60uni Dust Powder 110.4 Silco t/GM ts [...] in well A. - to area on [facility], 04/20 foot M.D. Sulfamethoxazol 06/13 Hx Tablets 800-160mg 20tab 1 po bid 681.00 Max e/Trimethoprim s A. DS - [facility], 06/23 M.D. 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 - recruitment coordinator only nmjesica, 07/06. Syringe 1 cc 06/06 Hx 1unit V65.49 Max With 25GA 1 10/16 s A. [facility] - [facility] 07/06 M.D Deep Sea Nasal 06/05 Hx Solution 0.65% 1bott 1 spray per Miguel le nostril Elliot, - daily D.O. 06/13 Cephalexin 04/28 Hx Tablets 500mg 1 po qid X 5 Days - 06/05 Debrox 03/28 Hx Solution 6.5% 1bott instill le 5-10 drops A. - in ear qid, [facility], 03/28 3 days, M.D. keep drops in ear for several min Bactroban Nasal 03/07 Hx Ointment 2% apply to 784.7 affected r, - area in [place], 06/05 right nostril bid for 2-4wks Saline 0.65% 08/23 Hx Nasal Goddard 44uni Goddard 1 ts Goddard In A. - Each [facility], 02/02 Nostril M.D. Once A Day Bactrim DS 08/04 Hx Tablets 800-160mg 14tab 1 po bid x 681.02 Joycecobritatni, s 7 days Lance Tavera.Noa 08/11 Colace [...] PO If No BM In Bridgett, 48Hours M.DRahsmi Calamine Lotion 11/28/2005 - Hx Liquid tid prn Max ARashmi 04/09/2008 Yohannes Whitlock [place] Bismuth 11/28/2005 - Hx 1Bott 30 cc [...] allergy Yohannes Whitlock Flonase 02/03/2005 - Hx Goddard 50mcg/S 2unit 2 sprays in Max A. [...] QSX1M 1 spray ea 477.0 Max Bragg Goddard 02/02/2014 o nostril qd Yohannes Whitlock Flonase [...] - Hx 5unit [address] [facility], 04/21/2016 s rectum as Elliot, needed [...] po 272.4 Max Bragg Release 08/21/2013 s [facility] Yohannes Whitlock Ferrous Sulfate 12/04/2003 - [...] CPT Code Status Date Vaccine Lot # [id number] Given 06/21/2018 Influenza Vaccine Split Virus Preservative Free Im [id number] Use 04918 Given 06/20/2017 Influenza Virus Vaccine, Quadrivalent, Split, [id number] Preservative Free 77469 Given 06/16/2016 Influenza Virus Vaccine, Quadrivalent, Split, [id number] Preservative Free 54020 Given 06/14/2015 Zostavax [id number] 14562 Given 06/14/2015 Influenza Virus Vaccine, Quadrivalent, Split, [id number] Preservative Free 72231 Given 06/14/2015 Prevnar 13 [id number] 73514 Given 06/11/2014 Adacel or Boostrix, TDaP [id number] 39224 Given 06/11/2014 Influenza Vaccine Split Virus Preservative Free Im [id number] Use 20387 Given 07/28/2013 Flu, Split Virus 3Yrs [id number] 26278 Given 07/12/2012 Flu, Split Virus 3Yrs [id number] 24090 Given 08/22/2011 Flu, Split Virus 3Yrs [id number] 80312 Given 08/04/2010 Flu, Split Virus 3Yrs [id number] 94449 Given 09/22/2009 Flu, Split Virus 3Yrs [id number] 36255 Given 08/27/2008 Flu, Split Virus 3Yrs [id number] 15064 Given 08/29/2007 Flu, Split Virus 3Yrs [id number] 00078 Given 08/27/2006 Flu, Split Virus 3Yrs [id number] 37293 Given 03/06/2006 Pneumococcal Immunization [id number] 73731 Given 08/12/2004 Flu, Split Virus 3Yrs 90222 Given 02/10/2004 Td Immunization 91223 Given 08/01/2003 Flu, Split Virus 3Yrs Vital [...] Epi Occ./0-2 Ua Other sperm Ua Specific [place] 1.025 Ua Blood moderate [place] Ua PH [...] Color Yellow Urine Appearance Turbid Urine Specific [place] 1.015 1.010-1.030 Urine pH 7.0 5-9 Urine [...] Color Yellow Urine Appearance Clear Urine Specific [place] 1.017 1.010-1.030 Urine pH 6.0 5-9 Urine [...] Color Yellow Urine Appearance Clear Urine Specific [place] 1.011 1.010-1.030 Urine pH 6.0 5-9 Urine [...] Color YELLOW Yellow Appearance-Urine CLEAR Clear Specific [place]-Ur 1.013 1.010-1.030 Esterase-Urine NEGATIVE Negative Nitrite NEGATIVE Negative Kqgvcgjaveqg-Xf-ZFP NEGATIVE Negative Protein-Urine NEGATIVE Negative PH-Urine 5.5 [...] 5 Kidney failure <15 (or dialysis) 4 [id number] Comment: urethra 5 SEE RESULT BELOW Name: TREYLEYLA : [address]: Binh Lee MD Acct: [id number] Unit: [id number] AGE: 83 Location: [facility] Re05/18/18 SEX: M Status: DEP ER SPEC: [id number] LAVERN: 05/18/181146 [facility] DR: Maru BOOTHE REQ: [id number] RECD: 05/18/18 STATUS: SHAHEED SOLANO DR: Elliot Cornelius MD _ SOURCE: PERINEUM SPDESC: ORDERED: MRSA/SA SSTI, Culture Stain COMMENTS: [id number] Comment: urethra Procedure Result Reported Site MRSA/S. aureus SSTI PCR Final 05/18/18- 2220 ML Organism 1 MRSA NEGATIVE Organism 2 S.AUREUS NEGATIVE Wound/Misc Gram Stain Final 05/19/18- 0741 ML 2+ Epithelial Cells 3+ Nucleated Cells 1+ Gram Positive Cocci Wound/Misc Culture Final 05/20/18- 1003 ML Organism 1 NORMAL SARA Quantity 1+ * ML - Main Lab . END OF REPORT DEPARTMENT OF PATHOLOGY, [address] [place] [address] Jeronimo Santos M.D. Director [facility] # [id number] 6 SEE RESULT BELOW Name: LEYLA CARRANZA : [address]: Binh Lee MD Acct: [id number] Unit: [id number] AGE: 83 Location: [facility] Re05/18/18 SEX: M Status: DEP ER SPEC: [id number] LAVERN: 05/18/18-1146 [facility] DR: Maru BOOTHE REQ: [id number] RECD: 05/18/18 STATUS: RES [facility] DR: Elliot Cornelius MD _ SOURCE: PERINEUM SPDESC: ORDERED: Culture Stain COMMENTS: [id number] Comment: urethra Procedure Result Reported Site Wound/Misc Gram Stain Preliminary 05/18/18- 175 ML 3+ Epithelial Cells 1+ Nucleated Cells 1+ Gram Positive Cocci Wound/Misc Culture PENDING * ML - Main Lab . END OF REPORT DEPARTMENT OF PATHOLOGY, [address] [place] [address] Jeronimo Santos M.D. Director [facility] # [id number] 7 [id number] 8 SEE RESULT BELOW Name: LEYLA CARRANZA : [address]: Binh Lee MD Acct: [id number] Unit: [id number] AGE: 83 Location: [facility] Re05/18/18 SEX: M Status: DEP ER SPEC: [id number] LAVERN: 05/18/18-1205 [facility] DR: Maru BOOTHE REQ: [id number] RECD: 05/18/18 STATUS: SHAHEED SOLANO DR: Elliot Cornelius MD _ SOURCE: URINE SPDESC: ORDERED: Urine Culture COMMENTS: [id number] Procedure Result Reported Site Urine Culture Final 05/19/18- 1309 ML No Growth (<1,000 CFU/mL) * ML - Main Lab . END OF REPORT DEPARTMENT OF PATHOLOGY, [address] [place] [address] Jeronimo Santos M.D. Director [facility] # [id number] 9 [id number] 10 SEE RESULT BELOW Name: LEYLA CARRANZA : [address]: Sandoval Davila MD Acct: [id number] Unit: [id number] AGE: 83 Location: [facility] Re05/01/18 SEX: M Status: REG REF SPEC: [id number] LAVERN: 05/01/18-1350 [facility] DR: Sandoval Davila MD REQ: [id number] RECD: 05/01/18-0364 STATUS: SHAHEED [facility] : Elliot Rivera DO _ SOURCE: URINE [facility]: ORDERED: Urine Culture COMMENTS: [id number] QUERIES: Urine Source: Catheterization Procedure Result Reported Site Urine Culture Final 05/03/18- 0858 ML Organism 1 KLEBSIELLA PNEUMONIAE Pierson Count 25-50,000 (Moderate) CFU/ML 1. KLEBSIELLA PNEUMONIAE [...] . END OF REPORT DEPARTMENT OF PATHOLOGY, [address] [place] [address] Jeronimo Santos M.D. Director [facility] # [id number] 11 [facility] Severe Sepsis and Septic Shock Management [...] (or dialysis) 13 Result TnIDx:1.23 Called to [id number] at: 12:57:03 by:[id number] Read back by: [id number] 14 >100 to <200 pg/mL: likely compensated congestive heart failure (CHF) 200 to 400 pg/mL: likely moderate CHF >400 pg/mL: likely moderate to severe CHF 15 SEE RESULT BELOW Name: LEYLA CARRANZA : [address]: Ashly Jeter MD Acct: [id number] Unit: [id number] AGE: 83 Location: [place] [address] Re04/14/18 SEX: M Status: ADM IN SPEC: [id number] LAVERN: 04/14/18-1212 [facility] DR: Dain Bernstein MD REQ: [id number] RECD: 04/14/18 STATUS: SHAHEED SOLANO DR: Elliot Rivera DO _ SOURCE: URINE [facility]: ORDERED: Urine Culture Procedure Result Reported Site Urine Culture Final 04/16/18- 0839 ML Organism 1 ENTEROCOCCUS FAECALIS Pierson Count 50-75,000 (Many) CFU/ML 1. ENTEROCOCCUS FAECALIS M.I.C. RX --------- ------ Ampicillin <=2 S Penicillin 2 S Ciprofloxacin 1 S Gentamicin High Level S Levofloxacin 1 S Linezolid 2 S Nitrofurantoin <=16 S * Quinupristin/Dalfopristin R * Streptomycin High Level S Tetracycline >=16 R Tigecycline <=0.12 S Vancomycin 2 S Imipenem-Deduced S * Ampicillin/Sulbactam-Deduced S * These antibiotics are not available in the [facility] Formulary Contact the Microbiology Department for any additional antibiotic reporting. * - [facility] . END OF REPORT DEPARTMENT OF PATHOLOGY, [address] [place] [address] Jeronimo Santos M.D. Director [facility] # [id number] 16 SEE RESULT BELOW Name: LEYLA CARRANZA : [address]: Ash Mcdermott MD Acct: [id number] Unit: [id number] AGE: 83 Location: [place] [address] Re04/14/18 Dis: 04/18/18 SEX: M Status: DIS IN SPEC: [id number] LAVERN: 04/14/18-1204 [facility] DR: Dain Bernstein MD REQ: [id number] RECD: 04/14/18 STATUS: SHAHEED SOLANO DR: Elliot Rivera DO _ SOURCE: BLOOD,VENO [facility]: ORDERED: Blood Cult Procedure Result Reported Site Aerobic Culture Bottle Final 04/19/18- 1215 ML No Growth Day 5 Anaerobic Culture Bottle Final 04/19/18- 1215 ML No Growth Day 5 * ML - Main Lab . END OF REPORT DEPARTMENT OF PATHOLOGY, [address] [place] [address] Jeronimo Santos M.D. Director [facility] # [id number] 17 [id number] 18 [id number] 19 [id number] 20 Because ethnic data is not always [...] 5 Kidney failure <15 (or dialysis) 21 [id number] 22 [id number] 23 [id number] 24 [id number] 25 Normal Range 180 to 914 Indeterminate Range 145 to 180 Deficient Range <145 26 SEE RESULT BELOW Name: LEYLA CARRANZA : [address]: Elliot Rivera DO Acct: [id number] Unit: [id number] AGE: 81 Location: [facility] Re07/19/16 SEX: M Status: REG REF SPEC: [id number] LAVERN: 07/19/16 [facility] DR: Elliot Rivera DO REQ: [id number] RECD: 07/20/162847 STATUS: SOUT _ ORDERED: LEVEL IV COMMENTS: [id number] FINAL DIAGNOSIS Skin, left ankle, biopsy: -- [...] performed at Main Lab DEPARTMENT OF PATHOLOGY, [address] [place] [address] Jeronimo Santos M.D. Director [facility] # [id number] 27 [id number] 28 Desirable <150 Borderline high 150-199 High [...] 5 Kidney failure <15 (or dialysis) 33 [id number] 34 Normal Range 180 to 914 Indeterminate [...] 0.03 ng/mL Not supportive of diagnosis of AR 0.03 - 0.50 ng/mL Indeterminate: suggest serial studies if clinically indicated. Greater than 0.5 ng/mL Consistent with diagnosis of AR 44 Because ethnic data is not always [...] when interpreting QuantiFERON-TB results. Test Performed by: [place] [address] Magician/Illusionist: Max Hoffman II, M.D., Ph.D. 48 Because [...] has been shown to interfere with the [place] method for measuring total bilirubin. Samples from [...] has been shown to interfere with the [place] method for measuring total bilirubin. Samples from [...] change was based on recommendations from the [place] [employer]. 83 A metabolite of Naproxen, O-desmethylnaproxen, has been shown to interfere with the [place] method for measuring total bilirubin. Samples from [...] change was based on recommendations from the [place] [employer]. 87 A metabolite of Naproxen, [...] SERUM LEVELS OF PSA MEASURED USING THE [employer] ACCESS HYBRITECH IMMUNOASSAY SHOULD NOT BE INTERPRETED [...] change was based on recommendations from the [place] [employer]. 94 Please note change in [...] LEVELS OF PSA MEASURED USING THE [employer] ACCESS HYBRITECH IMMUNOASSAY SHOULD NOT BE INTERPRETED [...] LEVELS OF PSA MEASURED USING THE [employer] ACCESS HYBRITECH IMMUNOASSAY SHOULD NOT BE INTERPRETED ABSOLUTE EVIDENCE OF THE PRESENCE OR ABSENCE OF DISEASE. THE PSA VALUE SHOULD BE USED IN CONJUNCTION WITH OTHER PERTINENT CLINICAL DIAGNOSTIC PROCEDURES. Procedures Date CPT Code Description Status Comment 06/21/2018 86386 Electrocardiogram Complete Completed 01/05/2017 08783 Remove Impact Cerumen Requiring Completed Instrument, Unilateral 07/19/2016 64492 Biopsy Skin Lesion Single Completed 02/21/2016 89125 Electrocardiogram Complete Completed 07/12/2012 83549 Remove Impact Cerumen Requiring Completed Instrument, Unilateral 05/02/2012 12627 Remove Impact Cerumen Requiring Completed Instrument, Unilateral 04/27/2011 14980 Remove Impact Cerumen Requiring Completed Instrument, Unilateral 04/19/2011 25318 Remove Impact Cerumen Requiring Completed Instrument, Unilateral 04/12/2011 53720 Remove Impact Cerumen Requiring Completed Instrument, Unilateral 07/01/2007 13684 Remove Impact Cerumen Requiring Completed Instrument, Unilateral 09/14/2006 Colonoscopy Completed Document: 09/14/06 - DR Mejia update in [address] mejia recommends no repeat colonoscopy unless symptoms require it Encounters Type Date Location Provider CPT E/M Dx Office Visit 06/21/2018 9:15a Main Office Elliot Rivera D.O. 97520 I10 R01.1 Z00.01 L40.0 E03.9 I70.0 G40.89 G51.0 F73 K59.00 W22.8xxA F41.9 K40.30 Z23 Z41.8 Office Visit 06/05/2018 10:40a [place] [address] S70.02xD W06.xxxD I10 Office Visit 04/30/2018 4:45p Main Office Liang Banuelos M.D. 00208 R53.83 R63.0 A41.81 Office Visit 04/23/2018 1:40p Main Office Marga Dunaway, PElina 37378 N40.1 A41.81 E03.9 I10 Office Visit 02/12/2017 1:45p Main Office Elliot Rivera D.O. 87953 J30.9 Office Visit 01/09/2017 9:45a Main Office Elliot Rivera D.O. 15444 K40.30 Office Visit 01/05/2017 1:30p Main Office Elliot Rivera D.O. 88871 H61.22 J30.9 Office Visit 12/19/2016 1:30p Main Office Elliot Rivera D.O. 16020 L40.0 I10 Office Visit 07/28/2016 2:30p Main Office Elliot Rivera D.O. 95969 D18.01 Office Visit 05/30/2016 9:45a Main Office Elliot Rivera D.O. 87982 I10 L40.0 R01.1 Office Visit 03/30/2016 11:45a Main Office Elliot Rivera D.O. 04232 E03.9 G40.89 R01.1 Office Visit 03/16/2016 1:30p Main Office Elliot Rivera D.O. 97023 R60.1 E03.9 G51.0 I70.0 Office Visit 02/21/2016 2:30p Main Office Elliot Rivera D.O. 32439 K40.90 I70.0 G51.0 G40.89 E03.9 R94.31 Office Visit 01/24/2016 4:45p Main Office Elliot Rivera D.O. 71301 G40.89 Office Visit 11/05/2015 1:45p Main Office Max Whitlock M.D. 00868 J20.9 Office Visit 10/01/2015 4:15p Main Office Max Whitlock M.D. 26472 J06.9 Office Visit 08/18/2015 2:45p Main Office Elliot Rivera D.O. 68843 S97.109A J06.9 W22.8xxA Office Visit 03/15/2015 11:15a Main Office Elliot Rivera D.O. 14839 440.0 603.9 553.20 Office Visit 08/14/2014 10:15a Main Office Elliot Rivera D.O. 91360 351.0 375.15 Office Visit 03/16/2014 12:55p Main Office Elliot Rivera D.O. 79566 564.00 318.2 783.21 Office Visit 12/29/2013 9:30a Main Office Elliot Rivera D.O. 19311 110.4 Office Visit 07/28/2013 1:30p Main Office Liang Banuelos M.D. 27029 372.72 v07.2 v04.81 Office Visit 06/09/2013 10:45a Main Office Max Whitlock M.D. 14360 477.0 600.00 564.00 696.1 244.9 318.2 V70.0 Office Visit 03/13/2013 10:45a Main Office Max Whitlock M.D. 96268 550.90 782.3 318.2 477.0 244.9 600.00 Office Visit 03/07/2013 11:00a Main Office Max Whitlock M.D. 77086 782.3 Office Visit 07/30/2012 3:20p Main Office Tristian Marks 70517 696.8 Office Visit 07/12/2012 11:15a Main Office Max Whitlock M.D. 44509 380.4 684 V65.49 v04.81 v07.2 Office Visit 06/07/2012 10:45a Main Office Max Whitlock M.D. 92333 V77.91 244.9 564.00 477.0 318.2 V70.0 V76.51 Office Visit 05/02/2012 10:20a Main Office Tristian Marks 15971 380.4 318.2 V41.2 Office Visit 04/05/2012 10:20a Main Office Tristian Marks 07800 380.4 Office Visit 03/21/2012 1:45p Main Office Max Whitlock M.D. 34960 892.0 707.00 Office Visit 07/04/2011 12:55p Main Office Max Whitlock M.D. 41857 784.7 380.4 V72.83 Office Visit 06/13/2011 4:30p Main Office Max Whitlock M.D. 51149 681.00 Office Visit 06/06/2011 2:45p Main Office Max Whitlock M.D. 41345 244.9 696.1 564.00 477.0 318.2 V65.49 V70.0 Office Visit 05/01/2011 4:20p Main Office Tristian Marks 92022 682.8 Office Visit 03/09/2011 2:00p Main Office Max Whitlock M.D. 53651 780.79 244.9 784.7 696.1 Office Visit 08/04/2010 4:20p Main Office Tristian Marks 60014 V04.81 681.02 Office Visit 05/20/2010 10:15a Main Office Max Whitlock M.D. 56293 244.9 564.00 477.0 696.1 600.00 318.2 V70.0 V76.51 V76.44 Office Visit 04/19/2009 1:30p Main Office Max Whitlock M.D. 49640 244.9 564.00 477.0 696.1 600.00 318.2 Office Visit 11/23/2008 1:10p Main Office Max Whitlock M.D. 48709 920 782.1 Office Visit 04/09/2008 9:05a Main Office Max Whitlock M.D. 69651 244.9 272.4 564.00 477.0 696.1 600.00 318.2 V76.51 V76.44 V70.0 Office Visit 07/01/2007 3:00p Main Office Max Whitlock M.D. 45126 380.4 564.00 564.0 Office Visit 04/08/2007 12:55p Main Office Max Whitlock M.D. 95540 244.9 477.0 696.1 600.00 564.00 564.0 V76.44 318.2 V76.51 V70.0 Office Visit 06/19/2006 5:00p Main Office Max Whitlock M.D. 70042 372.03 Office Visit 03/06/2006 2:30p Main Office Max Whitlock M.D. 22764 244.9 696.1 477.0 600.00 600.0 796.4 318.2 V70.0 V76.51 564.0 V07.2 V03.82 Office Visit 02/23/2005 3:00p Main Office bridgett 81128 460 Office Visit 02/10/2004 2:30p Main Office Max Whitlock M.D. 89160 244.9 V06.5 318.2 600.00 600.0 696.1 477.0 Office Visit 09/29/2003 5:00p Main Office Max Whitlock M.D. 91704 461.9 Plan of Care Future Appointment(s):06/25/2019 1:30 pm - Elliot Rivera D.O. at Main Brlchk8606/21/2018 - Elliot Rivera D.O.I10 Essential (primary) hypertensionFollow up:1 year DMHMR01.1 Cardiac murmur, swcavejaeefD27.01 Encounter for general adult medical exam w abnormal bamhdmvuM25.0 Psoriasis gediknnlL63.9 Hypothyroidism, xxewhsjqjkzO75.0 Atherosclerosis of vvvpgF65.89 Other pudlkkkjP20.0 Jain's wxrozY73 Profound intellectual disabilitiesNew Medication:Speech Pathology Swallow EvalK59.00 Constipation, crxmeppppujA29.8xxA Striking against or struck by other objects, init bqrryuJ56.9 Anxiety disorder, unspecifiedNew Medication:Clonazepam 0.5 mgK40.30 Unil inguinal hernia, w obst, w/o gangr, not spcf as grfguV63 Encounter for mmjmqwrxqdgcK55.8 Encntr for oth proc for purpose oth than remedy health state
--- NOTE | 2018-07-13 10:15 | ED ---
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 Patient has been tugging on the catheter over the past several weeks. Catheter was placed several weeks ago for urinary retention. Staff has denied any fevers, sweats, chills or other symptoms of infection or sepsis. - History of Current Complaint Chief Complaint: EDUrogenitalProblems Time Seen by Provider: 07/13/18 08:47 Stated Complaint: CATH ISSUES Hx Obtained From: Family/Elementary Principal Hx From Patient Unobtainable Due To: Other Onset/Duration: Started Hours Ago Timing: Constant Severity: Moderate Current Severity: Moderate Pain Intensity: 0 Additional Locations for Males: Penis Additional Signs & Symptoms: Negative: Penile Swelling, Penile Discharge Alleviating Factor(s): Nothing - Additional Pertinent History Primary Care Physician: JAMES - Allergy/Home Medications Allergies/Adverse Reactions: Allergies Allergy/AdvReac Type Severity Reaction Status Date / Time amoxicillin [From Augmentin] Allergy Unknown Verified 07/13/18 08:45 Reaction Details clavulanic acid Allergy Unknown Verified 07/13/18 08:45 [From Augmentin] Reaction Details PMH/Surg Hx/FS Hx/Imm Hx Previously Healthy: Yes Endocrine/Hematology History: Reports: Hx Thyroid Disease - hypo Denies: Hx Diabetes Cardiovascular History: Denies: Hx Hypertension Respiratory History: Denies: Hx Asthma, Hx Chronic Obstructive Pulmonary Disease (COPD) GI History: Denies: Hx Ulcer Sensory History: Reports: Hx Cataracts - BILAT Denies: Hx Contacts or Glasses, Hx Hearing Aid Opthamlomology History: Reports: Hx Cataracts - BILAT Denies: Hx Contacts or Glasses Neurological History: Reports: Hx Developmental Delay, Other Neuro Impairments/ Disorders - [place] Palsy Psychiatric History: Reports: Hx Anxiety - excessive, 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 - Surgical History Hx Anesthesia Reactions: No - UNKNOWN - Immunization History Date of Tetanus Vaccine: utd Date of Influenza Vaccine: utd Hx Pertussis Vaccination: No Immunizations Up to Date: Yes Infectious Disease History: No Infectious Disease History: 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 Denies: Hx Clostridium Difficile, Hx Hepatitis, Hx Human Immunodeficiency Virus (HIV), Hx of Known/Suspected MRSA, Hx Shingles, Hx Known/Suspected VRE, Hx Known/Suspected VRSA, History Other Infectious Disease, Traveled Outside the [place] in Last 30 Days - Family History Known Family History: Positive: Unknown - LEVEL 5 CAVEAT secondary to MR - Social History Occupation: Disabled Lives: Assisted Living Alcohol Use: None Hx Substance Use: No Substance Use Type: Reports: None Hx Tobacco Use: No Smoking Status (MU): Never Smoked Tobacco Review of Systems - ROS Summary Review of Systems Summary: level 5 caveat - non-verbal Constitutional: Negative Negative: Fever, Chills, Fatigue, Skin Diaphoresis Negative: Palpitations, Chest Pain Negative: Shortness Of Breath, Cough Genitourinary: Negative Positive: no symptoms reported, see HPI Negative: Arthralgia, Myalgia Skin: Negative Negative: Anxious, Depressed All Other Systems Reviewed And Are Negative: Yes Physical Exam Triage Information Reviewed: Yes Vital Signs On Initial Exam: Initial Vitals Temp Pulse Resp BP Pulse Ox 97.5 F 73 18 168/106 97 07/13/18 08:42 07/13/18 08:42 07/13/18 08:42 07/13/18 08:42 07/13/18 08:42 Completion Of Physical Exam Limited Due To: Level 5 Appearance: Positive: Well-Appearing Skin: Positive: Skin Color Reflects Adequate Perfusion Head/Face: Positive: Normal Head/Face Inspection Eyes: Positive: MARILYN Neck: Positive: No Lymphadenopathy Respiratory/Lung Sounds: Positive: Clear to Auscultation, Breath Sounds Present Cardiovascular: Positive: RRR, Pulses are Symmetrical in both Upper and Lower Extremities Musculoskeletal: Positive: Strength/ROM Intact Neurological: Positive: Speech Normal Psychiatric: Positive: Normal, Affect/Mood Appropriate AVPU Assessment: Alert Diagnostics - Vital Signs Vital Signs Temp Pulse Resp BP Pulse Ox 07/13/18 08:42 97.5 F 73 18 168/106 97 - Laboratory Lab Statement: Any lab studies that have been ordered have been reviewed, and results considered in the medical decision making process. GIGU Course/Dx - Course Course Of Treatment: On physical examination, Romero catheter bag had small amount of urine with obvious EKGs from the penis of urine. Patient has been tugging at the catheter, however catheter remains in place. Flushed catheter and appears to be clogged. Catheter was then changed with good outflow of 650 mL. Flowing well through the catheter into the bag. Patient will follow-up with his urologist and is okay for discharge at this time. Has TURP procedure coming up in 2 weeks. - Diagnoses Provider Diagnoses: Romero catheter problem Discharge - Sign-Out/Discharge Documenting (check all that apply): Patient Departure - Discharge Plan Condition: Stable Disposition: HOME Patient Education Materials: Romero Catheter Placement and Care (ED) Referrals: Elliot Rivera DO [Primary Care Provider] - - Billing Disposition and Condition Condition: STABLE Disposition: Home
[2018-07-13 10:27] VITALS: BP 147/70
== END 2018-07-13 10:25 | disposition home or self-care (01) ==
LOC: ED 08:39
DX: T83.031A Leakage of indwelling urethral catheter, initial encounter (principal); Z88.3 Allergy status to other anti-infective agents
CPT/HCPCS: 99282

== ENCOUNTER 2018-07-27 08:19 | Emergency (ER) | payer MEDICARE, MEDICAID ==
--- NOTE | 2018-07-27 08:39 | ED ---
GI/ HPI - HPI Summary HPI Summary: Pt. presenting to the ED for evaluation of indwelling tovar catheter. Pt. has a hx of MR and resides at a [facility]. Hx of BPH and is scheduled for a TURP next month in [place]. Staff member states that patient's Tovar stopped draining today. They attempted to flush it with no improvement. She also notes that is leaking around the tip of his penis. No hematuria. No fever, vomiting or any other complaints. Symptoms are mild in severity. No current modifying factors. - History of Current Complaint Chief Complaint: EDUrogenitalProblems Time Seen by Provider: 07/27/18 08:31 Stated Complaint: CATHATER LEAK Hx Obtained From: Family/Change Of Address Clerk Pain Intensity: 3 - Additional Pertinent History Primary Care Physician: JAMES - Allergy/Home Medications Allergies/Adverse Reactions: Allergies Allergy/AdvReac Type Severity Reaction Status Date / Time amoxicillin [From Augmentin] Allergy Unknown Verified 07/27/18 08:40 Reaction Details clavulanic acid Allergy Unknown Verified 07/27/18 08:40 [From Augmentin] Reaction Details PMH/Surg Hx/FS Hx/Imm Hx Previously Healthy: Yes Endocrine/Hematology History: Reports: Hx Thyroid Disease - hypo Denies: Hx Diabetes Cardiovascular History: Denies: Hx Hypertension Respiratory History: Denies: Hx Asthma, Hx Chronic Obstructive Pulmonary Disease (COPD) GI History: Denies: Hx Ulcer Sensory History: Reports: Hx Cataracts - BILAT Denies: Hx Contacts or Glasses, Hx Hearing Aid Opthamlomology History: Reports: Hx Cataracts - BILAT Denies: Hx Contacts or Glasses Neurological History: Reports: Hx Developmental Delay, Other Neuro Impairments/ Disorders - [place] Palsy Psychiatric History: Reports: Hx Anxiety - excessive, 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 - Surgical History Hx Anesthesia Reactions: No - UNKNOWN - Immunization History Date of Tetanus Vaccine: utd Date of Influenza Vaccine: utd Infectious Disease History: No Infectious Disease History: 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 Denies: Hx Clostridium Difficile, Hx Hepatitis, Hx Human Immunodeficiency Virus (HIV), Hx of Known/Suspected MRSA, Hx Shingles, Hx Known/Suspected VRE, Hx Known/Suspected VRSA, History Other Infectious Disease, Traveled Outside the [place] in Last 30 Days - Family History Known Family History: Positive: Unknown - LEVEL 5 CAVEAT secondary to MR - Social History Occupation: Disabled Lives: [facility]iary Alcohol Use: None Hx Substance Use: No Substance Use Type: Reports: None Hx Tobacco Use: No Smoking Status (MU): Never Smoked Tobacco Review of Systems Constitutional: Negative Negative: Fever, Chills Gastrointestinal: Negative Negative: Abdominal Pain, Vomiting Positive: other - blocked tovar catheter All Other Systems Reviewed And Are Negative: Yes Physical Exam Triage Information Reviewed: Yes Vital Signs On Initial Exam: Initial Vitals Temp Pulse Resp BP Pulse Ox 97 F 96 18 215/86 96 07/27/18 08:27 07/27/18 08:27 07/27/18 08:27 07/27/18 08:27 07/27/18 08:27 Vital Signs Reviewed: Yes Appearance: Positive: Well-Appearing - Pt. sitting on bed in NAD. Caregiver present. Skin: Positive: Warm, Dry Eyes: Positive: Normal, EOMI Neck: Positive: Supple Neurological: Positive: Normal, CN Intact II-III Psychiatric: Positive: Affect/Mood Appropriate Diagnostics - Vital Signs Vital Signs Temp Pulse Resp BP Pulse Ox 07/27/18 08:27 97 F 96 18 215/86 96 - Laboratory Lab Statement: Any lab studies that have been ordered have been reviewed, and results considered in the medical decision making process. GIGU Course/Dx - Course Course Of Treatment: Pt. presenting for clogged indwelling tovar catheter. He is afebrile and well appearing. Pt.'s nurse attempted to flush catheter without success. Catheter was then changed and draining well. Pt. dc home to [facility] with urology as scheduled. To return to ER if sxs change or worsen. - Diagnoses Provider Diagnoses: Obstructed Tovar catheter Discharge - Sign-Out/Discharge Documenting (check all that apply): Patient Departure - Discharge Plan Condition: Good Disposition: HOME Patient Education Materials: Tovar Catheter Placement and Care (ED) Referrals: Elliot Rivera DO [Primary Care Provider] - Additional Instructions: Follow up with urology as scheduled Return to ER if symptoms change or worsen - Billing Disposition and Condition Condition: GOOD Disposition: Home
--- OUTSIDE RECORDS SUMMARY | 2018-07-27 09:17 | XMS REPORT | Continuity of Care Document ---
:1935 External Reference #:[id number] Author Name Elliot Rivera D.O. Address [address] [place] [address] Care Team Providers Name Role Phone HCP given Primary Care Physician Unavailable Payers Type Date Identification Numbers Payment Provider Subscriber Policy Number: [id number] [facility] Leyla Carranza PayID: [id number] [facility] [address] [place] [address] Policy Number: [id number] Medicaid Leyla Carranza Group Name: [id number] 1 [id number] PayID: [id number] [place] [address] Advance Directives Description No Information Available Problems Date Description Provider Status Onset: 02/10/2004 [...] Elliot Rivera D.O. Active Onset: 03/06/2006 Constipation aMx Whitlock M.D. Inactive Inactive: 07/01/2007 Family History Date Family Member(s) Problem(s) Comments General Unremarkable no contact and no information Social History Type Date Description Comments Sex Unknown Smoke-Free Home is smoke-free General Resident of [facility] Tobacco Use Start: Unknown Denies Cigarette Use Tobacco Use Reviewed: 07/04/11 Tobacco Of Any Kind Denies Use Smoking Status Reviewed: 07/25/18 Tobacco Of Any Kind Denies Use ETOH Use Denies alcohol use Tobacco Use Start: Unknown Non Smoker / No Tobacco Exercise Type/Frequency Exercises sporadically Allergies, Adverse Reactions, Alerts Date Description Reaction Status Severity Comments 03/02/2005 Augmentin REACTION UNKNOWN WAS ON FILE ON ADM Active TO [facility] Medications Medication Date Status Form Strength Qnty SIG Indications Ordering Provider Clonazepam 06/21 Active Tablets 0.5mg 5tabs take 1/2 I10 tablet by Elliot, mouth 30 D.O. min prior to cystoscopy/ tovar replacement /lab draw for anxiety Speech 06/21 Active Evaluate I10 [facility], Pathology and Treat Elliot, Swallow Eval D.O. Systane Ultra 05/15 Active Solution 0.4-0.3% 75uni 1 drop both [facility] , Preservative ts eyes as Elliot, Free needed D.O. every 4 hours for dry eyes as needed Lipitor 05/07 Active Tablets 80mg 30tab 80 MG PO E78.4 cha, s 1700 Elliot D.O. Metoprolol 04/18 Active Tablets 25mg 1 by mouth twice a day Tamsulosin HCL 04/18 Active Capsules 0.4mg 90cap 1 by mouth s every day Elliot, D.O. Lactulose 04/18 Active Solution 10GM/15ML 750ml use [...] 100MG 09/12 Active 120un Take 2 K59.01 , its Capsules By Elliot, Mouth Twice D.O. A Day (Stool Softening) Chlorpromazine 06/15 Active Tablets 25mg 1 by mouth Endo, HCL every Leyla, evening MD Vines Carlance 06/15 Active QS apply t [facility], Moisturizing legs & body Elliot, Cream [...] lesions bid prn dryness, itching or redness [place] Saline 06/13 Active Gel 14.1u Apply nits Inside Elliot, Nostrils D.O. Twice Daily (Dryness) Fleet Enema 04/20 Active Enema 7-19GM 665un Insert 1 8ML its Rectally On , 3 Of No D.O. Bowel Movement By 4PM as Needed Liquifilm Tears 03/24 Active Drops 30uni Instill 1 ts Drop In Elliot, Both Eyes D.O. Four Times A Day ( Dry Eyes) Tab-A-Boo/Iron 03/15 Active Tablets 30tab Take 1 s Tablet By Elliot, Mouth Every D.O. Day (Diet Supplement) Xanax 01/23 Active Tablets 0.5mg 4tabs 2 tabs 1 I10 hour prior Elliot, to D.O. procedure ok to repeat in 1 hour if partial response to help with cooperation . Halcion 01/22 Active Tablets 0.25mg 2 tablets by mouth po 1 hr before dental apt Vitamin D3 01/19 Active Tablet 5000Unit 30tab Take One s Tablet By Elliot, Mouth Every D.O. Day (Diet Supplement) Synthroid 10/25 Active Tablets 50mcg 30tab Take 1 E03.9 s Tablet By Elliot, Mouth Every D.O. Day (Hypothyroi dism) Ibuprofen 09/30 Active Tablets 200mg 100ta taking 2 bs tabs po A. every 4 h Klepack, prn muscle M.D. aches or discomfort Antacid 09/30 Active Suspension 200-200-2 Unknown Anti-Gas 0mg/5ML Mineral Oil 09/30 Active Oil instill 3 gtts in each ear tid and flush every third day prn Vitamin A & D 09/30 Active Oint ointment prn Desitin 09/30 Active Ointment prn Vitamin D-3 06/28 Active Tablets 5000Unit 90tab 1 tab by Loco s mouth every Elliot, day or 7 D.O. tabs once a week Multi 05/12 Active Tablets 90tab 1 po daily. [place] Rivera/Iron s Elliot, D.O. Humira 03/11 Active PSKT 40mg/0.8M subq inj L every other week as directed Triamcinolone 08/13 Active Ointment 0.1% 454un apply twice [facility] Acet its daily for 2 Elliot, weeks D.O. alternating with diprolene ,not to face or folds (refer to rx#[id number] ) Peridex 0.12% 06/04 Active 473un Swab 1 [facility], Oral Rinse its Teaspoon On Elliot, Gums Twice D.O. Daily For Oral Care Nasal Moist Gel 02/02 Active Gel QS apply to [facility] inside of Elliot, nose 2 x a D.O. day # 90 day supply. Tar Soaks 02/19 Active twice a L40.0 Tangoren week MD Nichole Diprolene 02/19 Active Ointment 0.05% 45uni Apply To L40.0 [facility] ts Affected Elliot, Areas Twice D.O. Daily Times 2 Weeks Alternating With Triamcinolo ne, Not To Face Or Folds Vectical 02/19 Active Ointment 3mcg/GM 100un Apply To L40.0 [facility] its Legs Twice Elliot, Daily After D.O. Bath & Before Bed. (Psoriasis) Enulose 07/07 Active Solution 10GM/15ML 950un 2 K59.01 [facility] its tablespoon Elliot, every day D.O. Diapers Adult 06/27 Active 100un :Adult its Medium A. Pull-Up Due Bridgett, To Leakage M.D. Topiramate 06/05 Active Tablets 25mg 60tab take 1 tab [place] s twice a day Elliot, after meals D.O. Klonopin 03/05 Active Tablets 0.5mg 20tab 1 at bed Silco s time Yohannes Tavera Tylenol 11/28 Active Tablets 325mg 60tab give 2 s tablets po A. [id number] prn Kleedouardck, for pain or M.D. fever >101.0f Aspirin Low 11/28 Active Chewtabs 81mg 15uni Take 1 [place], ts Tablet By Elliot, Mouth Every D.O. Other Day (Prevent Heart Disease) Zincon Dandruff Active Shampoo 1% QS 3 x a week [place] Elliot, D.O. [place]ort 0.2% Active 45uni Apply To S[place]ak, Cre 15GM ts Facial Elliot, Lesions D.O. Twice Daily as Needed Dryness, Itching Or Redness. Must Be Applied By Amap Notify RN When Used, Dheeraj N Tarsum Active Shampoo 10-5% 472un 2 Capfuls chak its AT Bath Elliot, Time Every D.O. Day (Tar Bath) For Washing Body Atorvastatin 04/18 Hx Tablets 40mg 90tab 1 by mouth E78.4 [place], s every day Elliot, - D.O. 04/19 Atorvastatin 04/18 Hx Tablets 80mg 1 by mouth E78.4 Unknown Calcium every - evening at 05/07 5 pm Linezolid 04/18 Hx Tablets 600mg 1 by mouth every 12 - hours 04/22 Flonase Allergy 01/05 Hx Suspension 50mcg/Act 47.40 2 sprays J30.9 [place], Relief 0ml each Elliot, - nostril D.O. 02/04 daily Tylenol Extra 01/05 Hx Tablets 500mg 56tab take two J30.9 [place], Strength s tablets by Elliot, - mouth 2 D.O. 01/19 times a day for 2 weeks scheduled Artificial 08/10 Hx Solution 1.4% 45ml 1 drop both S[place]ak, eyes as Elliot, - needed for D.O. 05/15 dry eyes Miralax 07/21 Hx Powder 3350NF 510un 1 capful in its 8 oz. of Elliot, - water by D.O. 03/21 mouth every day Hold for > 3 stools/day Clonazepam 06/15 Hx Tablets 0.25mg 3tabs 1 in the Dispers morning Elliot, - crushed as D.O. [...] Tablets 100mg 20tab 1 [facility] s day for 10 A. - [facility], 11[facility]15 M.D. Doxycycline 10/01 Hx Tablets 100mg 20tab 1 twice a J06.9 [facility] 10 A. - days [facility], 11/04.D. Bacitracin 09/30 Hx Ointment 500Unit/G prn Unknown - 07/27 Calamine 09/30 Hx Lotion prn - 04/22 Azithromycin 08/25 Hx Tablets 250mg 6tabs take 2 tablets by Elliot, - mouth one D.O. 08/30 time on the first day then take 1 tablet by mouth daily for 4 days Chlorpromazine 06/14 Hx Tablets 25mg 1 tab daily Sopchadonna, HCL and 2 tabs Elliot, - at hs D.O. 06/15 Urine 02/12 Hx S[place]ak, Benzodiazepine Elliot, Level - D.O. 02/22 Polytrim 09/03 Hx Solution 63899-2.1 10uni Instill 1 Unit/ML-% ts Drop In The Elliot, - Affected D.O. 09/10 Eye(S) Three Times Daily For 5-7 Days Acetaminophen 08/28 Hx Suppository 650mg 10uni 1 tid as Sopcha ts needed for Elliot, - pain D.O. 09/27 Prednisone 08/13 Hx Tablets 20mg (decreasing doses x7 - days) 08/20 Tears Naturale 08/13 Hx Solution 0.1-0.2-0 15ml 2 drops as chak, .3% needed - 6 Elliot, - times/day D.O. 08/18 Nystatin 08/03 Hx Cream [id number] 30uni Apply 1 t/GM ts Application Elliot, - Topically D.O. 02/12 To Area On Both Buttocks 2 Times Per Day For Rash Nystatin 12/29 Hx Powder [id number] 60uni Dust Powder 110.4 co t/GM ts Freely On Liang, - The Feet M.D. 01/14 And In Shoes And Socks Three Times A Day as Needed To Keep Feet Dry For Fungal Infection Artificial 08/26 Hx Solution 0.4% QS1Mo 2 drops each eye 3 Elliot, - to 4 times D.O. 08/10 a /2015 Niaspan 08/21 Hx Tablets ER 1000mg [...] 04/05 Hx Solution 6.5% 1bott instill 380.4 Silco le 5-10 drops Liang, - in ear qid, M.D. 04/05 up to days, keep drops in ear for several min Triazolam 03/21 Hx Tablets 0.25mg 6tabs 2, one hour 318.2 ana prior to Elliot, - dental work D.O. 05/19 Bactroban 03/21 Hx Ointment 2% 22gm use bid and 892.0 rug in well A. - to area on mt, 04/20 foot M.D. Sulfamethoxazol 06/13 Hx Tablets 800-160mg 20tab 1 po bid 681.00 Max e/Trimethoprim s A. DS - , 06/23.D. Shingles 06/06 Hx 1dose dispense V65.49 Max one dose to A. 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 Syringe 1 cc 06/06 Hx 1unit V65.49 Max With 25GA 1 10/16 s A. In Needle - , 07/06.D. Deep Sea Nasal 06/05 Hx Solution [...] 03/07 Hx Ointment 2% apply to 784.7 [facility] affected r, - area in Ben, 06/05 right nostril bid for 2-4wks Saline 0.65% 08/23 Hx Nasal Devens 44uni Devens 1 ts Devens In A. - Each Bridgett, 02/02 Nostril M.D. Once A Day Bactrim DS 08/04 Hx Tablets 800-160mg 14tab 1 po bid x 681.02 Lakisha s 7 days Lance Tavera M.D. 08/11 Colace 07/13 Hx Capsules 100mg 120ca 2 caps 564.01 Miguel, ps (200mg) by Elliot, - mouth twice [...] 10% QS 1 gtt each eye Max Rashmi 07/09/2008 qid x 7 days. Yohannes Whitlock Miralax 07/01/2007 - Hx Powder [id number] 527gm 1 capful bid 564.0 Max Bragg 07/07/2011 for 1 dejon Whitlock M.D. Loratadine 01/07/2007 - Hx Tablets 10mg 30tab 1 po qd for 460 Max ARashmi 01/06/2011 s allergies Yohannes Whitlock Ilotycin Opthal 06/19/2006 - Hx .5% QS use qid for 7 372.0 Max Bragg 06/26/2006 Oint days o.u. 3 Yohannes Whitlock Chlorpromazine 02/09/2006 - Hx Tablets 25mg 120ta take on tablet V40.3 Max Rashmi 06/16/2016 bs every morning Bridgett, and three Yohannes tablets at bedtime Bisacodyl 12/28/2005 - Hx Tablets 5mg 60tab 2 po For No BM 564.0 Max ARashmi 10/01/2015 s In 48 Hours 1 Yohannes Whitlock Peridex 11/28/2005 - Hx Rinse 0.12%;1 1Bott give 10mls bid Max ARashmi 04/09/2008 1.6%Alc le after brushing Bridgett ohol teeth Aníbal.Noa Bisacodyl 11/28/2005 - Hx Suppositor 5mg 60uni Give 2 Tablets Max ARashmi 12/28/2005 ts PO If No BM In Bridgett, 48Hours M.DRashmi Calamine Lotion 11/28/2005 - Hx Liquid tid prn Max ARashmi 04/09/2008 Yohannes Whitlock Cayey Bismuth 11/28/2005 - Hx 1Bott 30 cc PO After Max A. Liquid 04/09/2008 le Each Loose Bridgett Stool; Not To M.DRashmi Exceed tid X3days Mineral Oil 11/28/2005 - Hx 1Bott as Directed Max ARashmi 01/19/2007 marnie Whitlock M.D. Bacitracin 11/28/2005 - Hx 1Bott Apply Max A. Ointment 04/09/2008 le Topically bid harvey Whitlock To Open Yohannes Areas Katrin D 02/23/2005 - Hx Tablets 60mg;12 60tab 1 po bid for 460 Max A. 01/07/2007 0 mg s allergy Yohannes Whitlock Flonase 02/03/2005 - Hx Devens 50mcg/S 2unit 2 sprays in Max AaRshmi 03/02/2005 pray s each nostril gustavo Whitlock M.D. Chloral Hydrate 01/16/2005 - Hx Syrup 500mg/5 80cc 10 cc po 1hr Max ARashmi 11/19/2008 ML before amish Whitlock M.D. Atarax 09/26/2004 - Hx Tablets 50mg 7tabs 1 tab po hs klepack 10/19/2006 Raptiva 09/25/2004 - Hx Injection 125mg/V 696.1 Max ARashmi 02/12/2009 ial Yohannes Whitlock Artificial Tears 08/11/2004 - Hx 1Bott 2 gtts to each Max A. 04/09/2008 le eye Q4H prn Yohannes Whitlock Chlorhexidine 08/11/2004 - Hx Rinse 0.12% 1Bott use 10mls to Max Mahsa Gluconate 06/10/2014 le rinse mouth Bridgett, after brushing M.D. teeth bid Saline Nasal 08/02/2004 - Hx [id number] 1 spray ea 477.0 Max Bragg Devens 02/02/2014 o nostril qd Yohannes Whitlock Flonase [...] - Hx Tablets 30tab 1 every day Miguel, Iron 05/12/2015 s Elliot D.ORashmi Fleets Enema 02/11/2004 - Hx 5unit [address] of Miguel, 04/21/2016 s rectum as Elliot, needed with no D.O. results from bisacodyl tabs in 24hrs Bisacodyl 01/08/2004 - Hx Suppositor 10mg 10uni 1 suppository Max Bragg 11/28/2005 ts every 3 days Bridgett, if no BM prn Yohannes Levoxyl 01/06/2004 - Hx Tablets 50mcg 30tab 1 tab by mouth 244.9 Miguel, 10/25/2015 s daily for Elliot, thyroid on D.O. empty stomach in the in the morning Niaspan Extended 12/04/2003 - Hx Tablets 1000mg 30tab 1 tablet po 272.4 Max Bragg Release 08/21/2013 s qhs Yohannes Whitlock Ferrous Sulfate 12/04/2003 - Hx Tablets 325mg 60tab 1 po bid Max Bragg 04/09/2007 s Yohannes Whitlock Doxycycline 09/29/2003 - Hx Capsules 100mg 20cap 1 bid for ten 461.9 Max Bragg Hyclate 01/06/2004 s Aníbal Duvall.D. Pentoxifylline 09/28/2003 - Hx Tablets 400mg 90tab [...] CPT Code Status Date Vaccine Lot # [id number] Given 06/21/2018 Influenza Vaccine Split Virus Preservative Free Im [id number] Use 26094 Given 06/20/2017 Influenza Virus Vaccine, Quadrivalent, Split, [id number] Preservative Free 07047 Given 06/16/2016 Influenza Virus Vaccine, Quadrivalent, Split, [id number] Preservative Free 37161 Given 06/14/2015 Zostavax [id number] 69339 Given 06/14/2015 Influenza Virus Vaccine, Quadrivalent, Split, [id number] Preservative Free 73923 Given 06/14/2015 Prevnar 13 [id number] 22406 Given 06/11/2014 Adacel or Boostrix, TDaP [id number] 03630 Given 06/11/2014 Influenza Vaccine Split Virus Preservative Free Im [id number] Use 68398 Given 07/28/2013 Flu, Split Virus 3Yrs [id number] 56283 Given 07/12/2012 Flu, Split Virus 3Yrs [id number] 77402 Given 08/22/2011 Flu, Split Virus 3Yrs [id number] 56471 Given 08/04/2010 Flu, Split Virus 3Yrs [id number] 88256 Given 09/22/2009 Flu, Split Virus 3Yrs [id number] 79009 Given 08/27/2008 Flu, Split Virus 3Yrs [id number] 00410 Given 08/29/2007 Flu, Split Virus 3Yrs [id number] 42293 Given 08/27/2006 Flu, Split Virus 3Yrs [id number] 00428 Given 03/06/2006 Pneumococcal Immunization [id number] 97979 Given 08/12/2004 Flu, Split Virus 3Yrs 18433 Given 02/10/2004 Td Immunization 78422 Given 08/01/2003 Flu, Split Virus 3Yrs Vital Signs Date Vital Result Comment 07/25/2018 4:18pm Height 64 inches 5'4" pt moving Weight 145.00 lb pt moving BMI (Body Mass Index) 24.9 kg/m2 06/21/2018 9:28am BP Systolic 145 mmHg BP Diastolic 91 mmHg Heart Rate 68 /min Height 64 inches 5'4" Weight 146.00 lb BMI (Body Mass Index) 25.1 kg/m2 06/05/2018 11:05am BP Systolic 164 mmHg BP Diastolic 70 mmHg BP Systolic Recheck 138 mmHg BP Diastolic Recheck 82 mmHg Weight 151.00 lb with sneakers 04/30/2018 5:12pm BP Systolic 158 mmHg BP Diastolic 68 mmHg Heart Rate 64 /min reg Respiratory Rate 14 /min not laboured Body Temperature 97.7 F axillary Weight 143.00 lb 04/23/2018 1:41pm BP Systolic 175 mmHg BP Diastolic 91 mmHg Heart Rate 65 /min 06/20/2017 1:32pm BP Systolic 124 mmHg BP Diastolic 80 mmHg Height 64 inches 5'4"w/shoes Weight 146.00 lb w/shoes BMI (Body Mass Index) 25.1 kg/m2 01/05/2017 2:14pm Weight 146.00 lb weight taken 12/16/16 by staff 12/19/2016 1:39pm BP Systolic 128 mmHg BP Diastolic 78 mmHg Weight 139.00 lb 07/28/2016 2:52pm BP Systolic 150 mmHg BP Diastolic 80 mmHg Weight 159.00 lb 06/16/2016 8:54am BP Systolic 146 mmHg BP Diastolic 80 mmHg Height 65 inches 5'5" Weight 157.00 lb unsteady on scale BMI (Body Mass Index) 26.1 kg/m2 05/30/2016 10:49am BP Systolic 96 mmHg right arm BP Diastolic 74 mmHg right arm Heart Rate 90 /min 03/30/2016 11:59am BP Systolic 162 mmHg pt having a hard time- BP Diastolic 91 mmHg pt having a hard time- Heart Rate 77 /min 03/16/2016 1:52pm BP Systolic 149 mmHg BP Diastolic 81 mmHg Heart Rate 82 /min 02/21/2016 2:56pm BP Systolic 137 mmHg BP Diastolic 70 mmHg Heart Rate 69 /min Weight 160.00 lb 01/24/2016 4:49pm BP Systolic 145 mmHg at facility 01/16/16 BP Diastolic 72 mmHg at facility 01/16/16 Weight 160.00 lb with sneakers; 157 lb at facility 11/05/2015 2:00pm Heart Rate 70 /min Respiratory Rate 16 /min Weight 160.00 lb approx, pt moving 10/01/2015 4:26pm Respiratory Rate 16 /min Body Temperature 97.0 F at the home Weight 157.00 lb with sneakers 08/18/2015 3:17pm Weight 154.00 lb with sneakers 06/14/2015 9:46am BP Systolic 140 mmHg BP Diastolic 75 mmHg Height 64.5 inches 5'4.50" Weight 155.00 lb BMI (Body Mass Index) 26.2 kg/m2 03/15/2015 11:44am BP Systolic 149 mmHg BP Diastolic 74 mmHg Heart Rate 80 /min Weight 157.00 lb W/Shoes 08/14/2014 10:32am BP Systolic 154 mmHg BP Diastolic 70 mmHg 06/11/2014 10:45am BP Systolic 138 mmHg BP Diastolic 64 mmHg Height 62.5 inches 5'2.50" Weight 152.00 lb BMI (Body Mass Index) 27.4 kg/m2 03/16/2014 1:08pm BP Systolic 140 mmHg BP Diastolic 70 mmHg Weight 146.00 lb w/shoes 07/28/2013 1:43pm BP Systolic 147 mmHg BP Diastolic 85 mmHg Heart Rate 77 /min Weight 153.00 lb 06/09/2013 11:12am BP Systolic 124 mmHg BP Diastolic 68 mmHg Heart Rate 80 /min Respiratory Rate 16 /min Weight 145.00 lb 06/07/2012 10:51am BP Systolic 140 mmHg BP Diastolic 74 mmHg Heart Rate 80 /min RRR Respiratory Rate 16 /min Weight 155.00 lb Last Menstrual Period 0 05/02/2012 10:29am BP Systolic 112 mmHg BP Diastolic 92 mmHg Heart Rate 86 /min 07/04/2011 12:56pm BP Systolic 118 mmHg BP Diastolic 70 mmHg Heart Rate 70 /min Respiratory Rate 16 /min Weight 146.00 lb 06/06/2011 3:05pm BP Systolic 158 mmHg BP Diastolic 70 mmHg Heart Rate 70 /min rrr Respiratory Rate 16 /min Weight 156.00 lb Last Menstrual Period 0 05/01/2011 4:32pm BP Systolic 162 mmHg BP Diastolic 86 mmHg Heart Rate 89 /min Weight 158.00 lb 03/09/2011 2:13pm BP Systolic 136 mmHg BP Diastolic 80 mmHg Heart Rate 80 /min Respiratory Rate 16 /min Weight 157.00 lb 08/04/2010 4:52pm Weight 156.00 lb 05/20/2010 11:04am Height 64 inches 5'4" Weight 155.00 lb BMI (Body Mass Index) 26.6 kg/m2 Last Menstrual Period 0 04/19/2009 1:29pm BP Systolic 122 mmHg BP Diastolic 70 mmHg Heart Rate 78 /min Respiratory Rate 18 /min Height 64 inches 5'4" Weight 149.00 lb BMI (Body Mass Index) 25.6 kg/m2 04/09/2008 9:46am BP Systolic 134 mmHg BP Diastolic 70 mmHg Heart Rate 70 /min rrr Respiratory Rate 16 /min Height 64 inches 5'4" Weight 147.00 lb in home BMI (Body Mass Index) 25.2 kg/m2 04/08/2007 12:55pm BP Systolic 134 mmHg BP Diastolic 70 mmHg Heart Rate 72 /min Height 64 inches 5'4" Weight 134.00 lb normal per their records BMI (Body Mass Index) 23.0 kg/m2 06/19/2006 5:00pm Weight 145.00 lb 03/06/2006 4:02pm BP Systolic 140 mmHg BP Diastolic 82 mmHg Weight 147.00 lb 03/06/2006 3:05pm Heart Rate 80 /min Respiratory Rate 16 /min 03/02/2005 11:21am BP Systolic 128 mmHg Per RN BP Diastolic 78 mmHg Per RN Weight 142.00 lb Results Test Date Facility Test Result H/L Range Note CBC Auto Diff 06/14/2018 [facility] White Blood 8.5 10^3/uL 3.5- 10.8 [phone] Count Red Blood Count 4.34 10^6/uL 4.00-5.40 Hemoglobin [...] Cells % 0.1 Comp Metabolic Panel 06/14/2018 [facility] Sodium 137 mmol/L 135- 145 [phone] Potassium 4.3 mmol/L 3.5-5.0 Chloride 106 mmol/L [...] Egfr Non- 59.2 >60 Egfr 71.7 >60 1 Laboratory test finding 06/14/2018 [facility] Magnesium 2.1 mg/dL 1.9-2.7 [phone] TSH (Thyroid Stim Horm) 2.59 mcIU/mL 0.34-5.60 T3 Free 3.00 pg/mL 2.5-3.9 Free T4 (Free Thyroxine) 0.78 ng/dL 0.61-1.12 Vitamin B12 > 1450 pg/mL High 180-914 2 CBC Auto Diff 05/31/2018 [facility] White Blood Count 8.4 10^3/uL 3.5-10.8 [phone] Red Blood Count 4.33 10^6/uL 4.00-5.40 Hemoglobin [...] Cells % 0 Comp Metabolic Panel 05/31/2018 [facility] Sodium 136 mmol/L 135- 145 [phone] Potassium 4.3 mmol/L 3.5-5.0 Chloride 106 mmol/L [...] Non- 49.0 >60 Egfr 59.3 >60 3 Urine Culture And 05/18/2018 [facility] Urine Culture SEE RESULT 4 , 5 Sensitivities [phone] BELOW Wound Culture/Sensi 05/18/2018 [facility] Wound/Misc SEE RESULT 6 , 7 [phone] Culture-Gram BELOW Stain Laboratory test 05/18/2018 [facility] MRSA/S Aureus SEE RESULT 8 finding [phone] Ssti PCR BELOW Urine Culture And 05/01/2018 [facility] Urine Culture SEE RESULT 9 , 10 Sensitivities [phone] BELOW Culture Urine Inhouse 04/30/2018 In House Colonies 07/19 Urine Micro Inhouse 04/30/2018 In House Ua WBC 5-10 Ua Epi Occ./0-2 Ua Other sperm Ua Specific [place] 1.025 Ua Blood moderate NH Ua PH 6.0 Ua Nitrite + Ua Leukocytes trace Inr/Protime 04/14/2018 [facility] Inr 1.25 High 0.77-1.02 [phone] Laboratory test 04/14/2018 [facility] Partial 48.6 seconds High 26.0- 36.3 finding [phone] Thrombo Time PTT Lactic Acid 1.9 mmol/L 0.5-2.0 11 Comp Metabolic Panel 04/14/2018 [facility] Sodium 135 mmol/L 135- 145 [phone] Potassium 4.1 mmol/L 3.5-5.0 Chloride 104 mmol/L [...] >60 Egfr 56.1 >60 12 Laboratory test 04/14/2018 [facility] C Reactive 53.28 mg/L High < 8.01 finding [phone] Protein Troponin-I (TnI) 1.23 ng/mL High <0.04 13 Urinalysis Profile 04/14/2018 [facility] Urine Color Yellow [phone] Urine Appearance Turbid Urine Specific [place] 1.015 1.010-1.030 Urine pH 7.0 5-9 Urine [...] Epithelial Cell Present Absent Laboratory test 04/14/2018 [facility] B-Type 30 pg/mL 14 finding [phone] Natriuretic Peptide BNP Urine Culture And 04/14/2018 [facility] Urine Culture SEE RESULT 15 Sensitivities [phone] BELOW Laboratory test 04/14/2018 [facility] Blood Culture SEE RESULT 16 finding [phone] BELOW CBC Auto Diff 04/14/2018 [facility] White Blood 17.7 High 3.5-1 [phone] Count 10^3/uL 0.8 Red Blood Count 5.53 10^6/uL High 4.00-5.40 [...] Blood Cells % 0.4 Laboratory test 07/23/2017 [facility] Vitamin D 86.2 ng/mL High 20- 50 17, 18 finding [phone] Total 25(Oh) CBC Auto Diff 05/22/2017 [facility] White Blood 6.2 3.5-10.8 19 [phone] Count 10^3/uL Red Blood Count 5.32 10^6/uL 4.0-5.4 Hemoglobin 16.7 g/dL 14.0-18.0 Hematocrit 51 % 42-52 Mean Corpuscular Volume 95 fL High 80-94 Mean Corpuscular Hemoglobin 31 pg 27-31 Mean Corpuscular HGB Conc 33 g/dL 31-36 Red Cell Distribution Width 14 % 10.5-15 Platelet Count 221 10^3/uL 150-450 Mean Platelet Volume 9 um3 7.4-10.4 Abs Neutrophils 4.0 10^3/uL 1.5-7.7 Abs Lymphocytes 1.5 10^3/uL 1.0-4.8 Abs Monocytes 0.6 10^3/uL 0-0.8 Abs Eosinophils 0 10^3/uL 0-0.6 Abs Basophils 0 10^3/uL 0-0.2 Abs Nucleated RBC 0 10^3/uL Granulocyte % 64.1 % 38-83 Lymphocyte % 24.9 % Low 25-47 Monocyte % 10.3 % High 1-9 Eosinophil % 0.4 % 0-6 Basophil % 0.3 % 0-2 Nucleated Red Blood Cells % 0 Comp Metabolic Panel 05/22/2017 [facility] Sodium 139 mmol/L 133- 145 [phone] Potassium 4.1 mmol/L 3.5-5.0 Chloride 107 mmol/L 101-111 Co2 Carbon Dioxide 31 mmol/L 22-32 Anion Gap 1 mmol/L Low 2-11 Glucose 88 mg/dL 70-100 Blood Urea Nitrogen 29 mg/dL High 6-24 Creatinine 1.22 mg/dL High 0.67-1.17 BUN/Creatinine Ratio 23.8 High 8-20 Calcium 9.5 mg/dL 8.6-10.3 Total Protein 7.1 g/dL 6.4-8.9 Albumin 3.8 g/dL 3.2-5.2 Globulin 3.3 g/dL 2-4 Albumin/Globulin Ratio 1.2 1-3 Total Bilirubin 0.70 mg/dL 0.2-1.0 Alkaline Phosphatase 66 U/L 34-104 Alt 20 U/L 7-52 Ast 22 U/L 13-39 Egfr Non- 57.2 >60 Egfr 73.5 >60 20 Laboratory test finding 05/22/2017 [facility] Magnesium 2.2 mg/dL 1.9-2.7 21 [phone] TSH (Thyroid Stim Horm) 2.13 mcIU/mL 0.34-5.60 22 T3 Free 3.10 pg/mL 2.5-3.9 23 Free T4 (Free Thyroxine) 0.96 ng/dL 0.61-1.12 24 Vitamin B12 1420 pg/mL High 180-914 25 Laboratory test 07/19/2016 [facility] Surgical SEE RESULT 26 finding [phone] Pathology BELOW CBC Auto Diff 06/22/2016 [facility] White Blood 6.8 10^3/uL 3.5-10. 27 [phone] Count 8 Red Blood Count 5.54 10^6/uL High 4.0-5.4 Hemoglobin 16.7 g/dL 14.0-18.0 Hematocrit 49 % 42-52 Mean Corpuscular Volume 89 fL 80-94 Mean Corpuscular Hemoglobin 30 pg 27-31 Mean Corpuscular HGB Conc 34 g/dL 31-36 Red Cell Distribution Width 14 % 10.5-15 Platelet Count 239 10^3/uL 150-450 Mean Platelet Volume 9 um3 7.4-10.4 Abs Neutrophils 4.6 10^3/uL 1.5-7.7 Abs Lymphocytes 1.4 10^3/uL 1.0-4.8 Abs Monocytes 0.7 10^3/uL 0-0.8 Abs Eosinophils 0.1 10^3/uL 0-0.6 Abs Basophils 0 10^3/uL 0-0.2 Abs Nucleated RBC 0.01 10^3/uL Granulocyte % 68.2 % 38-83 Lymphocyte % 20.1 % Low 25-47 Monocyte % 10.3 % High 1-9 Eosinophil % 1.3 % 0-6 Basophil % 0.1 % 0-2 Nucleated Red Blood Cells % 0.2 Comp Metabolic Panel 06/22/2016 [facility] Sodium 135 mmol/L 133- 145 [phone] Potassium 4.0 mmol/L 3.5-5.0 Chloride 103 mmol/L 101-111 Co2 Carbon Dioxide 26 mmol/L 22-32 Anion Gap 6 mmol/L 2-11 Glucose 83 mg/dL 70-100 Blood Urea Nitrogen 23 mg/dL 6-24 Creatinine 1.08 mg/dL 0.67-1.17 BUN/Creatinine Ratio 21.3 High 8-20 Calcium 9.6 mg/dL 8.6-10.3 Total Protein 7.0 g/dL 6.4-8.9 Albumin 3.8 g/dL 3.2-5.2 Globulin 3.2 g/dL 2-4 Albumin/Globulin Ratio 1.2 1-3 Total Bilirubin 0.50 mg/dL 0.2-1.0 Alkaline Phosphatase 75 U/L 34-104 Alt 23 U/L 7-52 Ast 25 U/L 13-39 Egfr Non- 66.0 >60 Egfr 84.8 >60 28 Laboratory test 06/22/2016 [facility] Vitamin D Total 70.7 ng/mL High 30-50 29 finding [phone] 25(Oh) Lipid Profile 06/22/2016 [facility] Triglycerides 156 mg/dL 30 (Trig/Chol/HDL) [phone] Cholesterol 209 mg/dL 31 HDL Cholesterol 39.8 mg/dL 32 LDL Cholesterol 138 mg/dL 33 CBC Auto Diff 03/20/2016 [facility] White Blood Count 8.4 10^3/uL 3.5-10.8 [phone] Red Blood Count 5.45 10^6/uL High 4.0-5.4 [...] Cells % 0.2 Comp Metabolic Panel 03/20/2016 [facility] Sodium 135 mmol/L 133- 145 [phone] Potassium 4.5 mmol/L 3.5-5.0 Chloride 105 mmol/L [...] Egfr Non- 66.7 >60 Egfr 85.7 >60 34 Laboratory test finding 03/20/2016 [facility] Magnesium 2.0 mg/dL 1.9-2.7 [phone] TSH (Thyroid Stim Horm) 3.57 ?IU/mL 0.34-5.60 T3 Free 3.00 pg/mL 2.5-3.9 Free T4 (Free Thyroxine) 0.87 ng/dL 0.61-1.12 Vitamin B12 > 1450 pg/mL High [phone] Laboratory test finding 01/20/2016 [facility] Lipase 29 U/L 11.0- 82.0 [phone] C Reactive Protein 3.00 mg/L < 5.00 36 Comp Metabolic Panel 01/20/2016 [facility] Sodium 132 mmol/L Low 133- 145 [phone] Potassium 4.6 mmol/L 3.5-5.0 Chloride 103 mmol/L 101-111 Co2 Carbon Dioxide 23 mmol/L 22-32 Anion Gap 6 mmol/L 2-11 Creatinine 1.01 mg/dL 0.67-1.17 Calcium 9.5 mg/dL 8.6-10.3 Albumin 3.9 g/dL 3.2-5.2 Alkaline Phosphatase 64 U/L 34-104 Alt 24 U/L 7-52 Ast 32 U/L 13-39 Egfr Non- 71.3 >60 Egfr 91.6 >60 37 Glucose 100 mg/dL 70-100 Blood Urea Nitrogen 18 mg/dL 6-24 BUN/Creatinine Ratio 17.8 8-20 Total Protein 7.1 g/dL 6.4-8.9 Globulin 3.2 g/dL 2-4 Albumin/Globulin Ratio 1.2 1-3 Total Bilirubin 0.40 mg/dL 0.2-1.0 Laboratory test 01/20/2016 [facility] Troponin-I (TnI) 0.01 ng/mL < 0.03 38 finding [phone] Urinalysis Profile 01/20/2016 [facility] Urine Color Yellow [phone] Urine Appearance Clear Urine Specific [place] 1.017 1.010-1.030 Urine pH 6.0 5-9 Urine Urobilinogen Negative Negative Urine Ketones Negative Negative Urine Protein Negative Negative Urine Leukocytes Negative Negative Urine Blood Negative Negative Urine Nitrite Negative Negative Urine Bilirubin Negative Negative Urine Glucose Negative Negative CBC Auto Diff 01/20/2016 [facility] White Blood Count 7.0 10^3/uL 3.5-10.8 [phone] Red Blood Count 5.61 10^6/uL High 4.0-5.4 Hemoglobin 17.1 g/dL 14.0-18.0 Hematocrit 52 % 42-52 Mean Corpuscular Volume 92 fL 80-94 Mean Corpuscular Hemoglobin 31 pg 27-31 Mean Corpuscular HGB Conc 33 g/dL 31-36 Red Cell Distribution Width 14 % 10.5-15 Platelet Count 243 10^3/uL 150-450 Mean Platelet Volume 8 um3 7.4-10.4 Abs Neutrophils 4.5 10^3/uL 1.5-7.7 39 Abs Lymphocytes 1.7 10^3/uL 1.0-4.8 40 Abs Monocytes 0.7 10^3/uL 0-0.8 41 Abs Eosinophils 0.1 10^3/uL 0-0.6 42 Abs Basophils 0 10^3/uL 0-0.2 43 Abs Nucleated RBC 0.06 10^3/uL 44 Granulocyte % 64.5 % 38-83 Lymphocyte % 24.4 % Low 25-47 45 Monocyte % 9.4 % High 1-9 Eosinophil % 1.0 % 0-6 Basophil % 0.7 % 0-2 Nucleated Red Blood Cells % 0.9 Laboratory test 06/14/2015 [facility] Vitamin D 25.2 ng/mL Low 30-50 finding [phone] Total 25(Oh) CBC Auto Diff 06/14/2015 [facility] White Blood 5.8 10^3/uL 4.8- 10.8 [phone] Count Red Blood Count 5.32 10^6/uL 4.0-5.4 Hemoglobin [...] Cells % 0.2 Comp Metabolic Panel 06/14/2015 [facility] Sodium 137 mmol/L 133- 145 [phone] Potassium 4.1 mmol/L 3.5-5.0 Chloride 107 mmol/L [...] >60 Egfr 105.0 >60 46 Laboratory test 06/14/2015 [facility] TSH (Thyroid Stim 1.61 ?IU/mL 0.34-5.60 finding [phone] Horm) Quantiferon Gold 06/14/2015 [facility] M tuberculosis by Negative Negative TB [phone] Quantiferon Tuberculosis Antigen Value 0.00 IU/mL 47 CBC Auto Diff 03/08/2015 [facility] White Blood Count 6.7 10^3/uL 4.8-10.8 [phone] Red Blood Count 5.21 10^6/uL 4.0-5.4 Hemoglobin [...] Cells % 0.3 Comp Metabolic Panel 03/08/2015 [facility] Sodium 134 mmol/L 133- 145 [phone] Potassium 3.8 mmol/L 3.5-5.0 Chloride 104 mmol/L [...] 78.3 >60 48 Laboratory test finding 03/08/2015 [facility] Lipase 20 U/L 11.0- 82.0 [phone] C Reactive Protein 2.57 mg/L < 5.00 49 Lactic Acid 1.7 mmol/L 0.5-2.2 Urinalysis Profile 03/08/2015 [facility] Urine Color Yellow [phone] Urine Appearance Clear Urine Specific [place] 1.011 1.010-1.030 Urine pH 6.0 5-9 Urine Urobilinogen Negative Negative Urine Ketones Negative Negative Urine Protein Negative Negative Urine Leukocytes Negative Negative Urine Blood Negative Negative Urine Nitrite Negative Negative Urine Bilirubin Negative Negative Urine Glucose Negative Negative CBC Auto Diff 02/22/2015 [facility] White Blood Count 7.5 10^3/uL 4.8-10.8 [phone] Red Blood Count 5.57 10^6/uL High 4.0-5.4 [...] Cells % 0.2 Comp Metabolic Panel 02/22/2015 [facility] Sodium 137 mmol/L 133- 145 [phone] Potassium 4.1 mmol/L 3.5-5.0 Chloride 106 mmol/L [...] Non- 59.1 >60 Egfr 76.0 >60 50 Lipid Profile 11/25/2014 [facility] Triglycerides 216 mg/dL 51, 52 (Trig/Chol/HDL) [phone] Cholesterol 154 mg/dL 53 HDL Cholesterol 26.4 mg/dL 54 LDL Cholesterol 84 mg/dL 55 Comp Metabolic Panel 08/13/2014 [facility] Sodium 135 mmol/L 133- 145 [phone] Potassium 4.7 mmol/L 3.7-5.6 Chloride 106 mmol/L [...] >60 Egfr 73.4 >60 56 Laboratory test 08/13/2014 [facility] C Reactive Protein 1.50 mg/L < 5.00 57 finding [phone] Laboratory test 08/13/2014 [facility] Erythrocyte Sed 5 mm/Hr 0-40 finding [phone] Rate CBC Auto Diff 08/13/2014 [facility] White Blood Count 10.7 4.8-10.8 [phone] 10^3/uL Red Blood Count 5.80 10^6/uL High 4.0-5.4 [...] Blood Cells % 0.4 Laboratory test finding 06/20/2014 [facility] Free T3 2.80 pg/mL 2.5 -3.9 58, 59 [phone] Free T4 0.84 ng/mL 0.61-1.12 60 TSH (Thyroid Stimulating Horm) 2.50 IU/mL 0.34-5.60 61 Laboratory test 03/06/2014 [facility] TSH (Thyroid 2.58 IU/mL 0.34- 5.60 finding [phone] Stimulating Horm) T4 5.24 g/dL Low 6.09-12.23 Total T3 0.60 ng/mL Low 0.87-1.78 Laboratory test finding 12/29/2013 [facility] Ast 19 U/L 13-39 [phone] Lipid Profile 12/29/2013 [facility] Triglycerides 139 mg/dL 62 (Trig/Chol/HDL) [phone] Cholesterol 154 mg/dL 63 HDL Cholesterol 34.6 mg/dL 64 LDL Cholesterol 92 mg/dL 65 Comp Metabolic Panel 08/29/2013 [facility] Sodium 139 mmol/L 133- 145 [phone] Potassium 4.0 mmol/L 3.5-5.0 Chloride 109 mmol/L [...] Non- 58.9 >60 Egfr 75.7 >60 66 CBC No Diff 08/29/2013 [facility] White Blood Count 5.4 10^3/uL 4.8- 10.8 [phone] Red Blood Count 5.32 10^6/uL 4.0-5.4 Hemoglobin 15.8 g/dL 14.0-18.0 Hematocrit 49 % 42-52 Mean Corpuscular Volume 92 fL 80-94 Mean Corpuscular Hemoglobin 30 pg 27-31 Mean Corpuscular HGB Conc 32 g/dL 31-36 Red Cell Distribution Width 13 % 10.5-15 Platelet Count 186 10^3/uL 150-450 Mean Platelet Volume 8 um3 7.4-10.4 Laboratory test 04/03/2013 [facility] TSH (Thyroid 2.33 miu/mL 0.34- 5.60 finding [phone] Stimulating Horm) CBC Auto Diff 02/21/2013 [facility] White Blood Count 7.5 10^3/uL 4.8-10.8 [phone] Red Blood Count 5.32 10^6/uL 4.0-5.4 Hemoglobin [...] Cells % 0.3 Comp Metabolic Panel 02/21/2013 [facility] Sodium 137 mmol/L 133- 145 [phone] Potassium 4.0 mmol/L 3.5-5.0 Chloride 105 mmol/L [...] Non- 58.9 >60 Egfr 75.7 >60 67 Liver Function Panel 08/16/2012 [facility] Direct Bilirubin 0.1 mg/dL 0.1-0.5 [phone] Indirect Bilirubin 0.8 mg/dL 0.3-1.0 Lipid Profile 08/16/2012 [facility] Triglycerides 115 mg/dL 40-200 (Trig/Chol/HDL) [phone] Cholesterol 182 mg/dL Less than 200 68 HDL Cholesterol 37 mg/dL Low 40-60 69 Cholesterol/HDL Ratio 4.9 AVERAGE High 1-4.44 LDL Cholesterol 122.0 mg/dL High Less Than 100 Comp Metabolic Panel 08/16/2012 [facility] Sodium 138 mmol/L 133- 145 [phone] Potassium 3.9 mmol/L 3.5-5.0 Chloride 108 mmol/L [...] >60 Egfr 83.9 >60 71 Laboratory test 06/07/2012 In House Occult Blood - neg x3 finding Stool CBC Auto Diff 02/19/2012 [facility] White Blood 7.2 CUMM 4.8-10.8 [phone] Count Red Cell Count 5.14 CUMM 4.6-6.2 Hemoglobin [...] Basophils 0 0-0.2 Comp Metabolic Panel 02/19/2012 [facility] Sodium 137 mmol/L 135- 145 [phone] Potassium 3.9 mmol/L 3.5-5.0 Chloride 105 mmol/L [...] > 60 74 Liver Function Panel 02/19/2012 [facility] Bilirubin Direct 0.2 mg/dL 0.1-0.5 [phone] Indirect Bilirubin 0.7 mg/dL 0.3-1.0 75 Laboratory test 02/19/2012 [facility] TSH 3.99 MIU/ML 0.34-5.60 finding [phone] CBC Auto Diff 03/02/2011 [facility] White Blood 6.9 CUMM 4.8-10.8 [phone] Count Red Cell Count 5.24 CUMM 4.6-6.2 Hemoglobin [...] 0 0-0.2 76 Comp Metabolic Panel 03/02/2011 [facility] Sodium 137 mmol/L 135- 145 [phone] Potassium 4.0 mmol/L 3.5-5.0 Chloride 107 mmol/L [...] eGFR 84.2 > 60 79 Laboratory test 03/02/2011 [facility] TSH 2.32 MIU/ML 0.34-5.60 finding [phone] Urine Culture & 03/02/2011 [facility] Urine Culture NG 80 Sensitivi [phone] Sensitivi Urinalysis 03/02/2011 [facility] Ua Color YELLOW Yellow [phone] Appearance-Urine CLEAR Clear Specific [place]-Ur 1.013 1.010-1.030 Esterase-Urine NEGATIVE Negative Nitrite NEGATIVE Negative Enbhjmbywuuc-Ex-VPP NEGATIVE Negative Protein-Urine NEGATIVE Negative PH-Urine 5.5 5-9 Blood-Urine NEGATIVE Negative Ketones-Urine NEGATIVE Negative Bilirubin-Ur NEGATIVE Negative Glucose-Urine NEGATIVE Negative Comp Metabolic Panel 07/15/2010 [facility] Sodium 137 mmol/L 135- 145 [phone] Potassium 3.8 mmol/L 3.5-5.0 Chloride 107 mmol/L [...] 92.1 > 60 84 CBC With Manual 07/15/2010 [facility] White Blood Count 6.3 CUMM 4.8 -10.8 Diff [phone] Red Cell Count 5.18 CUMM 4.6-6.2 Hemoglobin [...] RBC Morphology NORMAL Comp Metabolic Panel 07/13/2010 [facility] Sodium 141 mmol/L 135- 145 [phone] Potassium 4.1 mmol/L 3.5-5.0 Chloride 107 mmol/L [...] eGFR 94.2 > 60 88 Laboratory test 07/13/2010 [facility] PSA Screening 1.76 NG/ML 0-4 89 finding [phone] CBC With 07/13/2010 [facility] White Blood 5.7 CUMM 4.8-10.8 Electronic Diff [phone] Count Red Cell Count 5.24 CUMM 4.6-6.2 Hemoglobin [...] 0-0.6 Abs Basophils 0 0-0.2 Laboratory test 02/24/2009 [facility] Hepatitis C NEGATIVE Negative finding [phone] Antibody CBC With Manual 12/28/2008 [facility] White Blood Count 10.0 CUMM 4.8-10.8 Diff [phone] Red Cell Count 5.21 CUMM 4.6-6.2 Hemoglobin [...] (SEE NOTE) 91 Comp Metabolic Panel 12/28/2008 [facility] Sodium 134 mmol/L Low 135- 145 [phone] Potassium 4.4 mmol/L 3.5-5.0 Chloride 98 mmol/L [...] Ast (Sgot) 23 U/L 12-42 Lipid Profile 12/28/2008 [facility] Triglyceride 159 mg/dL 40-200 (Trig/Chol/HDL) [phone] Cholesterol 167 mg/dL Less Than 200 95 High Density Lipoprotein 32 mg/dL Low 40-60 96 Low Density Lipoprotein 103 mg/dL High Less Than 100 97 Cholesterol/HDL Ratio 5.22 AVERAGE High 1-4.97 Laboratory test 12/28/2008 [facility] TSH 1.97 MIU/ML 0.34-5.60 finding [phone] Laboratory test 04/13/2008 [facility] TSH 2.03 MIU/ML 0.34-5.60 finding [phone] Lipid Profile 04/13/2008 [facility] Triglyceride 222 mg/dL High 40- 200 (Trig/Chol/HDL) [phone] Cholesterol 172 mg/dL Less Than 200 98 High Density Lipoprotein 31 mg/dL Low 40-60 99 Cholesterol/HDL Ratio 5.55 AVERAGE High 1-4.97 Low Density Lipoprotein 97 mg/dL Less Than 100 100 Liver Function Panel 04/13/2008 [facility] Total Protein 6.5 GM/DL 6.2-8.6 [phone] Albumin 3.5 GM/DL 3.2-5.2 Globulin 3.0 GM/DL 2-4 Albumin/Globulin Ratio 1.2 1-3 Bilirubin Total 0.7 mg/dL 0.4-1.5 Bilirubin Direct 0.1 mg/dL 0.1-0.5 Indirect Bilirubin 0.6 mg/dL 0.1-0.75 Alkaline Phosphatase 77 U/L 39-117 Alt (SGPT) 23 U/L 17-63 Ast (Sgot) 28 U/L 12-42 Basic Metabolic Panel 04/13/2008 [facility] Sodium 138 mmol/L 135- 145 [phone] Potassium 4.2 mmol/L 3.5-5.0 Chloride 108 mmol/L 101-111 Co2 (Carbon Dioxide) 29.0 mmol/L 22-32 Anion Gap 1.0 mmol/L Low 2-11 101 Glucose 82 mg/dL 70-105 BUN 17 mg/dL 6-24 Creatinine 1.0 mg/dL 0.5-1.4 One Over Creatinine 1.00 BUN/Creatinine Ratio 17.0 8-20 Calcium 8.7 mg/dL 8.1-9.9 102 CBC With Electronic 04/13/2008 [facility] White Blood 10.9 CUMM High 4.8-10.8 Diff [phone] Count Red Cell Count 5.14 CUMM 4.6-6.2 Hemoglobin [...] 0-0.6 Abs Basophils 0.1 0-0.2 Laboratory test 04/13/2008 [facility] PSA Screening 3.03 NG/ML 0-4 103 finding [phone] Laboratory test 04/09/2008 In House Occult Blood - neg x3 finding Stool CBC With Manual 01/13/2008 [facility] White Blood 11.6 CUMM High 4.8- 10.8 Diff [phone] Count Absolute Neutrophil Count 6.6 Atypical Lymph 2 [...] WDTH 14 % 10.5-15 CBC With Manual 11/04/2007 [facility] White Blood 13.6 CUMM High 4.8- 10.8 Diff [phone] Count Absolute Neutrophil Count 6.8 Atypical Lymph 6 [...] WDTH 15 % 10.5-15 CBC With Manual 09/11/2007 [facility] White Blood 11.9 CUMM High 4.8- 10.8 Diff [phone] Count Absolute Neutrophil Count 7.9 Atypical Lymph 2 [...] WDTH 14 % 10.5-15 CBC With Manual 07/01/2007 [facility] White Blood 13.5 CUMM High 4.8- 10.8 Diff [phone] Count Absolute Neutrophil Count 7.9 Atypical Lymph 2 [...] Distribution WDTH 14 % 10.5-15 Laboratory test 06/06/2007 In House Occult Blood - NEG.X3 finding Stool Laboratory test 04/24/2007 [facility] TSH 1.53 MIU/ML 0.34-5.60 finding [phone] PSA Screening 1.36 NG/ML 0.01-4.0 104 CBC With Manual 04/05/2007 [facility] White Blood 13.0 CUMM High 4.8- 10.8 Diff [phone] Count Absolute Neutrophil Count 5.8 Atypical Lymph 9 [...] 14 % 10.5-15 Comp Metabolic Panel 02/07/2007 [facility] Over Creatinine 0.90 [phone] Anion Gap 4.0 mmol/L 2-11 105 Albumin/Globulin [...] Creatinine 1.1 mg/dL 0.5-1.4 CBC With Manual 02/07/2007 [facility] White Blood 11.8 CUMM High 4.8- 10.8 Diff [phone] Count Absolute Neutrophil Count 5.5 Atypical Lymph 4 [...] WDTH 14 % 10.5-15 CBC With Manual 12/10/2006 [facility] White Blood 17.6 CUMM High 4.8- 10.8 Diff [phone] Count Absolute Neutrophil Count 12.6 Atypical Lymph 6 [...] WDTH 15 % 10.5-15 Lipid Profile 12/10/2006 [facility] Cholesterol/HDL 5.64 High 1-4.97 (Trig/Chol/HDL) [phone] Ratio AVERAGE Cholesterol 158 mg/dL Less Than 200 106 Triglyceride 140 mg/dL 40-200 High Density Lipoprotein 28 mg/dL Low 40-60 107 Low Density Lipoprotein 102 mg/dL High Less Than 100 108 Laboratory test 12/10/2006 [facility] PSA Screening 4.31 NG/ML High 0.01-4.0 109 finding [phone] Iron & Iron 12/10/2006 [facility] Iron Total 46 g/dL 45-182 Binding Capacity [phone] Unsaturated Iron Binding 297 g/dL Total Iron Binding Capacity 343 g/dL 250-450 % Iron Saturation 13 % Low 15-55 Laboratory test 12/10/2006 [facility] TSH 1.96 MIU/ML 0.34-5.60 finding [phone] CBC With 08/29/2006 [facility] White Blood 12.8 CUMM High 4.8-10.8 Electronic Diff [phone] Count Abs Basophils 0.1 0-0.2 Abs Eosinophils 0.6 [...] 13 % 10.5-15 Laboratory test finding 07/11/2006 [facility] Ferritin 23 NG/ML Low 24-336 [phone] Iron & Iron Binding 07/11/2006 [facility] Iron Total 51 g/dL 45- 182 Capacity [phone] Unsaturated Iron Binding 317 g/dL Total Iron Binding Capacity 368 g/dL 250-450 % Iron Saturation 14 % Low 15-55 Transferrin 263.1 CBC With Manual 07/11/2006 [facility] White Blood 11.9 CUMM High 4.8- 10.8 Diff [phone] Count Hematocrit 47 % 42-52 Hemoglobin 16.2 g/dL [...] 5-47 Monocyte 7 % 0-13 Laboratory test 05/02/2006 [facility] TSH 4.63 MIU/ML 0.34-5.60 finding [phone] CBC With 03/06/2006 [facility] White Blood 12.7 CUMM High 4.8-10.8 Electronic Diff [phone] Count Abs Basophils 0.1 0-0.2 Abs Eosinophils 0.4 [...] Distribution WDTH 15 % 10.5-15 Laboratory test 03/06/2006 [facility] TSH 3.82 MIU/ML 0.34-5.60 finding [phone] CBC W/ Manual Diff 01/08/2006 [facility] White Blood 13.1 High 4.8-10.8 Count RBC Red Blood Count 5.56 Hemoglobin 16.5 Hematocrit 48 MCV (Corpuscular Volume) 87 MCH (Corpuscular Hemoglobin) 30 MCHC (Corpuscular Hemog Conc) 34 RDW 14 Platelet Count 253 MPV 9.0 Bands 5 Lymphocytes 42 Monocytes 2 Eosinophils 4 Absolute Neutrophils 6.8 Lipid Panel 03/24/2005 [facility] Cholesterol Total 184 LABORATORY [phone] Cholesterol/HDL Ratio 4.97 High Density Lipoprotein 37 LDL Low Density Lipoprotein 115 Triglycerides 160 Laboratory test 03/24/2005 [facility] TSH Thyroid 3.27 finding LABORATORY Stimulating Horm [phone] PSA Total 1.1 CBC With Electronic 03/24/2005 [facility] White Blood Count 9.9 Diff LABORATORY [phone] RBC Red Blood Count 5.28 Hemoglobin 15.7 Hematocrit 46 MCV (Corpuscular Volume) 88 MCH (Corpuscular Hemoglobin) 30 MCHC (Corpuscular Hemog Conc) 34 RDW 14 Platelet Count 215 MPV 8.8 Eosinophils 0 Basophils 0.1 Absolute Basophils 0 Absolute Eosinophils 0 Absolute Lymphocytes 4.4 Absolute Monocytes 0.7 CMP Panel 03/24/2005 [facility] Albumin 3.5 LABORATORY [phone] Alt - SGPT 25 Calcium 9.2 Carbon Dioxide 28.0 Chloride 101 Creatinine 1.0 Glucose Serum 79 Alkaline Phosphatase 82 Potassium 4.4 Protien Total 6.3 Sodium 136 Ast - Sgot 32 BUN - Urea Nitrogen 17 CBC With Electronic 01/13/2005 [facility] White Blood 11.1 Diff LABORATORY Count [phone] RBC Red Blood Count 5.52 Hemoglobin 16.5 Hematocrit 49 MCV (Corpuscular Volume) 89 MCH (Corpuscular Hemoglobin) 30 MCHC (Corpuscular Hemog Conc) 34 RDW 13 Platelet Count 246 MPV 8.7 Bands 4 Lymphocytes 16 Monocytes 9 Eosinophils 1 CMP Panel 01/13/2005 [facility]. Albumin 3.6 LABORATORY [phone] Alt - SGPT 23 Calcium 9.5 Carbon Dioxide 30.0 Chloride 101 Creatinine 1.1 Glucose Serum 95 Alkaline Phosphatase 89 Potassium 4.9 Protien Total 6.5 Sodium 136 Ast - Sgot 31 BUN - Urea Nitrogen 17 1 Because ethnic data is not always [...] 5 Kidney failure <15 (or dialysis) 2 Normal Range 180 to 914 Indeterminate Range 145 to 180 Deficient Range <145 3 Because ethnic data is not always [...] 5 Kidney failure <15 (or dialysis) 4 [id number] 5 SEE RESULT BELOW Name: LEYLA CARRANZA Ngoc : [address]: Binh Lee MD Acct: [id number] Unit: [id number] AGE: 83 Location: [facility] Re05/18/18 SEX: M Status: DEP ER SPEC: [id number] LAVERN: 05/18/18-[address] [facility] [address]: Maru BOOTHE REQ: [id number] RECD: 05/18/187 STATUS: SHAHEED SOLANO DR: Elliot Cornelius MD _ SOURCE: URINE SPDESC: ORDERED: Urine Culture COMMENTS: [id number] Procedure Result Reported Site Urine Culture Final 05/19/18- 1309 ML No Growth (<1,000 CFU/mL) * ML - Main Lab . END OF REPORT DEPARTMENT OF PATHOLOGY, [address] [place] [address] Jeronimo Santos M.D. Director [facility] # [id number] Comment: urethra 7 SEE RESULT BELOW Name: LEYLA CARRANZA : [address]: Binh Lee MD Acct: [id number] Unit: [id number] AGE: 83 Location: [facility] Re05/18/18 SEX: M Status: DEP ER SPEC: [id number] LAVERN: 05/18/18-[address] [facility] [address]: Maru BOOTHE REQ: [id number] RECD: 05/18/18 STATUS: RES HR DR: Elliot Cornelius MD _ SOURCE: PERINEUM SPDESC: ORDERED: Culture Stain COMMENTS: [id number] Comment: urethra Procedure Result Reported Site Wound/Misc Gram Stain Preliminary 05/18/181756 ML 3+ Epithelial Cells 1+ Nucleated Cells 1+ Gram Positive Cocci Wound/Misc Culture PENDING * ML - Main Lab . END OF REPORT DEPARTMENT OF PATHOLOGY, [address] [place] [address] Jeronimo Santos M.D. Director [facility] # [id number] 8 SEE RESULT BELOW Name: LEYLA CARRANZA : [address]: Binh Lee MD Acct: [id number] Unit: [id number] AGE: 83 Location: [facility] Re05/18/18 SEX: M Status: DEP ER SPEC: [id number] LAVERN: 05/18/18-[address] [facility] [address]: Maru BOOTHE REQ: [id number] RECD: 05/18/18 STATUS: SHAHEED SOLANO DR: Elliot Cornelius MD _ SOURCE: PERINEUM SPDESC: ORDERED: MRSA/SA SSTI, Culture Stain COMMENTS: [id number] Comment: urethra Procedure Result Reported Site MRSA/S. aureus SSTI PCR Final 05/18/18- 2220 ML Organism 1 MRSA NEGATIVE Organism 2 S.AUREUS NEGATIVE Wound/Misc Gram Stain Final 05/19/18- 0741 ML 2+ Epithelial Cells 3+ Nucleated Cells 1+ Gram Positive Cocci Wound/Misc Culture Final 05/20/18- 1003 ML Organism 1 NORMAL SARA Quantity 1+ * ML - Main Lab . END OF REPORT DEPARTMENT OF PATHOLOGY, [address] [place] [address] Jeronimo Santos M.D. Director [facility] # [id number] SEE RESULT BELOW Name: LEYLA CARRANZA : [address]: Sandoval Davila MD Acct: [id number] Unit: [id number] AGE: 83 Location: [facility] Re05/01/18 SEX: M Status: REG REF SPEC: [id number] LAVERN: 05/01/[address]: Sandoval Davila MD REQ: [id number] RECD: 05/01/18 STATUS: SHAHEED SOLANO DR: Elliot Rivera DO _ SOURCE: URINE [facility]: ORDERED: Urine Culture COMMENTS: [id number] QUERIES: Urine Source: Catheterization Procedure Result Reported Site Urine Culture Final 05/03/18- 0858 ML Organism 1 KLEBSIELLA PNEUMONIAE [place] Count 25-50,000 (Moderate) CFU/ML 1. KLEBSIELLA PNEUMONIAE [...] . END OF REPORT DEPARTMENT OF PATHOLOGY, [address] [place] [address] Jeronimo Santos M.D. Director [facility] # [id number] 11 [facility] Severe Sepsis and Septic Shock Management Bundle [...] (or dialysis) 13 Result TnIDx:1.23 Called to [id number] at: 12:57:03 by:[id number] Read back by: [id number] 14 >100 to <200 pg/mL: likely compensated congestive heart failure (CHF) 200 to 400 pg/mL: likely moderate CHF >400 pg/mL: likely moderate to severe CHF 15 SEE RESULT BELOW Name: LEYLA CARRANZA : [address]: Ashly Jeter MD Acct: [id number] Unit: [id number] AGE: 83 Location: [facility] 450-01 Re04/14/18 SEX: M Status: ADM IN SPEC: [id number] LAVERN: 04/14/18-[address] [facility] [address]: Dain Bernstein MD REQ: [id number] RECD: 04/14/18 STATUS: SHAHEED SOLANO DR: Elliot Rivera DO _ SOURCE: URINE SPDESC: ORDERED: Urine Culture Procedure Result Reported Site Urine Culture Final 04/16/18- 0839 ML Organism 1 ENTEROCOCCUS FAECALIS [place] Count 50-75,000 (Many) CFU/ML 1. ENTEROCOCCUS FAECALIS [...] . END OF REPORT DEPARTMENT OF PATHOLOGY, [address] [place] [address] Jeronimo Santos M.D. Director [facility] # [id number] 16 SEE RESULT BELOW Name: LEYLA CARRANZA : [address]: Ash Mcdermott MD Acct: [id number] Unit: [id number] AGE: 83 Location: [place] [address] Re04/14/18 Dis: 04/18/18 SEX: M Status: DIS IN SPEC: [id number] LAVERN: 04/14/18-[address] [facility] [address]: Dain Bernstein MD REQ: [id number] RECD: 04/14/18 STATUS: COMP OTHR DR: Elliot Rivera DO _ SOURCE: BLOOD,[facility]: ORDERED: Blood Cult Procedure Result Reported Site Aerobic Culture Bottle Final 04/19/18- 5 ML No Growth Day 5 Anaerobic Culture Bottle Final 04/19/18- 5 ML No Growth Day 5 * ML - Main Lab . END OF REPORT DEPARTMENT OF PATHOLOGY, [address] [place] [address] Jeronimo Santos M.D. Director [facility] # [id number] 17 [id number] 19 [id number] 20 Because ethnic data is not always [...] 5 Kidney failure <15 (or dialysis) 21 [id number] 24 [id number] 25 Normal Range 180 to 914 Indeterminate Range 145 to 180 Deficient Range <145 26 SEE RESULT BELOW Name: LEYLA CARRANZA : [address]: Elliot Rivera DO Acct: [id number] Unit: [id number] AGE: 81 Location: [facility] Re07/19/16 SEX: M Status: REG REF SPEC: [id number] LAVERN: 07/19/[address]: Elliot Rivera DO REQ: [id number] RECD: 07/20/164780 STATUS: SOUT _ ORDERED: LEVEL IV COMMENTS: [id number] FINAL DIAGNOSIS Skin, left ankle, biopsy: -- [...] performed at Main Lab DEPARTMENT OF PATHOLOGY, [address] [place] [address] Jeronimo Santos M.D. Director [facility] # [id number] 27 [id number] 28 Because ethnic data is not always readily [...] 15-29 5 Kidney failure <15 (or dialysis) 29 [id number] 30 Desirable <150 Borderline high 150-199 High 200-499 Very High >500 31 Desirable <200 Borderline high 200-239 High >239 32 Low <40 Desirable: 40-60 High: >60 33 Desirable: <100 mg/dL Near Optimal: 100-129 mg/dL Borderline High: 130-159 mg/dL High: 160-189 mg/dL Very High: >189 mg/dL 34 Because ethnic data is not always [...] 5 Kidney failure <15 (or dialysis) 35 Normal Range 180 to 914 Indeterminate Range 145 to 180 Deficient Range <145 36 Acute inflammation: >10.00 37 Because ethnic data is not always [...] 5 Kidney failure <15 (or dialysis) 38 Reference Range and Interpretation: TnI (ng/mL) Interpretation Less Than 0.03 ng/mL Not supportive of diagnosis of VA 0.03 - 0.50 ng/mL Indeterminate: suggest serial studies if clinically indicated. Greater than 0.5 ng/mL Consistent with diagnosis of VA 39 Consistent with previous results on 08/16/15. 40 Consistent with previous results on 08/16/15. 41 Consistent with previous results on 08/16/15. 42 Consistent with previous results on 08/16/15. 43 Consistent with previous results on 08/16/15. 44 --- 01/20/16 1352 --- ABS NRBC previously reported as: 0.06 10 3/ul Consistent with previous results on 08/16/15. 45 Consistent with previous results on 08/16/15. 46 Because ethnic data is not always [...] when interpreting QuantiFERON-TB results. Test Performed by: [address] [address] Dry House Worker: Max Hoffman II, M.D., Ph.D. 48 Because [...] has been shown to interfere with the Jendrassik-Clearview method for measuring total bilirubin. Samples from [...] has been shown to interfere with the Jendrassik-Clearview method for measuring total bilirubin. Samples from [...] has been shown to interfere with the Jendrassik-Clearview method for measuring total bilirubin. Samples from [...] change was based on recommendations from the [employer]. 83 A metabolite of Naproxen, [...] change was based on recommendations from the [employer]. 87 A metabolite of Naproxen, [...] SERUM LEVELS OF PSA MEASURED USING THE [employer] ACCESS HYBRITECH IMMUNOASSAY SHOULD NOT BE INTERPRETED [...] change was based on recommendations from the [employer]. 94 Please note change in [...] SERUM LEVELS OF PSA MEASURED USING THE [employer] ACCESS HYBRITECH IMMUNOASSAY SHOULD NOT BE INTERPRETED ABSOLUTE EVIDENCE OF THE PRESENCE OR ABSENCE OF DISEASE. THE PSA VALUE SHOULD BE USED IN CONJUNCTION WITH OTHER PERTINENT CLINICAL DIAGNOSTIC PROCEDURES. 104 * SERUM LEVELS OF PSA MEASURED USING THE [employer] ACCESS HYBRITECH IMMUNOASSAY SHOULD NOT BE INTERPRETED [...] OTHER PERTINENT CLINICAL DIAGNOSTIC PROCEDURES. Procedures Date Code Description Status 06/21/2018 93165 Electrocardiogram Complete Completed 01/05/2017 04358 Remove Impact Cerumen Requiring Instrument, Unilateral Completed 07/19/2016 60777 Biopsy Skin Lesion Single Completed 02/21/2016 64660 Electrocardiogram Complete Completed 07/12/2012 81235 Remove Impact Cerumen Requiring Instrument, Unilateral Completed 05/02/2012 36937 Remove Impact Cerumen Requiring Instrument, Unilateral Completed 04/27/2011 47245 Remove Impact Cerumen Requiring Instrument, Unilateral Completed 04/19/2011 69156 Remove Impact Cerumen Requiring Instrument, Unilateral Completed 04/12/2011 85354 Remove Impact Cerumen Requiring Instrument, Unilateral Completed 07/01/2007 92386 Remove Impact Cerumen Requiring Instrument, Unilateral Completed 09/14/2006 19048501 Colonoscopy Completed Encounters Type Date Location Provider Dx Diagnosis Office Visit 07/25/2018 Main Office Elliot Rivera, Z01.818 Encounter for other 3:45p D.O. preprocedural examination D64.9 Anemia, unspecified I10 Essential (primary) hypertension R01.1 Cardiac murmur, unspecified E03.9 Hypothyroidism, unspecified Z79.899 Other [facility]itentiary (current[facility] drug therapy Office Visit 06/05/2018 10:40a Main Office Teetee Santamaria, S70.02xD Contusion of left PA hip, subsequent encounter W06.xxxD Fall from bed, subsequent encounter I10 Essential (primary) hypertension Office Visit 04/30/2018 4:45p Main Office Liang Banuelos M.D. R53.83 Other fatigue R63.0 Anorexia A41.81 Sepsis due to Enterococcus Office Visit 04/23/2018 1:40p Main Office Marga Dunaway, N40.1 Benign prostatic P.A. hyperplasia with lower urinary tract symp A41.81 Sepsis due to Enterococcus E03.9 Hypothyroidism, unspecified I10 Essential (primary) hypertension Office Visit 02/12/2017 1:45p Main Office Elloit Rivera, J30.9 Allergic rhinitis, D.O. unspecified Office Visit 01/09/2017 9:45a Main Office Elliot Rivera, K40.30 Unil inguinal D.O. hernia, w obst, w/o gangr, not spcf as recur Office Visit 01/05/2017 1:30p Main Office Elliot Rivera, H61.22 Impacted cerumen, D.O. left ear J30.9 Allergic rhinitis, unspecified Office Visit 12/19/2016 1:30p Main Office Elliot Rivera, L40.0 Psoriasis vulgaris D.O. I10 Essential (primary) hypertension Office Visit 07/28/2016 2:30p Main Office Elliot Rivera, D18.01 Hemangioma of skin D.O. and subcutaneous tissue Office Visit 05/30/2016 9:45a Main Office Elliot Rivera, I10 Essential ( primary) D.O. hypertension L40.0 Psoriasis vulgaris R01.1 Cardiac murmur, unspecified Office Visit 03/30/2016 11:45a Main Office Elliot Rivera, E03.9 Hypothyroidism, D.O. unspecified G40.89 Other seizures R01.1 Cardiac murmur, unspecified Office Visit 03/16/2016 1:30p Main Office Elliot Rivera, R60.1 Generalized edema D.O. 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 Office Visit 11/05/2015 1:45p Main Office Max Bragg J20.9 Acute bronchitis, Yohannes Whitlock unspecified Office Visit 10/01/2015 4:15p Main Office Max Bragg J06.9 Acute upper Yohannes Whitlock respiratory infection, unspecified Office Visit 08/18/2015 2:45p Main Office Elliot Rivera, S97.109A Crushing injury of D.O. unspecified toe(s), initial encounter J06.9 Acute upper respiratory infection, unspecified W22.8xxA Striking against or struck by other objects, init encntr Office Visit 03/15/2015 11:15a Main Office Elliot Rivera, 440.0 Atherosclerosis Aorta D.O. 603.9 Hydrocele Unspec 553.20 Hernia Ventral Unspec Office Visit 08/14/2014 10:15a Main Office Elliot Rivera D.O. 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 Unspecified 318.2 Mental Retardation Profound 783.21 Loss Of Weight Office Visit 12/29/2013 9:30a Main Office Elliot Rivera, 110.4 Dermatophytosis Foot D.O. Office Visit 07/28/2013 1:30p Main Office Lakisha, 372.72 Conjunctival Yohannes Tavera Hemorrhage v07.2 Prophylactic Immunotherapy v04.81 Need For Prophylactic Vaccination & Inoculation/Influenza Office Visit 06/09/2013 10:45a Main Office Max Bragg 477.0 Rhinitis Allergic Yohannes Whitlock Due To Pollen 600.00 Hypertrophy Prostate W/O Urinary Obstruction & Other Luts 564.00 Constipation Unspecified 696.1 Psoriasis Other 244.9 Hypothyroidism Other Unspec 318.2 Mental Retardation Profound V70.0 Examination General Medical Routine AT Health Care Facility Office Visit 03/13/2013 10:45a Main Office Max Bragg 550.90 Hernia Inguinal Yohannes Whitlock W/O Obstruct Or Gangrene Unilateral Unspec 782.3 Edema 318.2 Mental Retardation Profound 477.0 Rhinitis Allergic Due To Pollen 244.9 Hypothyroidism Other Unspec 600.00 Hypertrophy Prostate W/O Urinary Obstruction & Other Luts Office Visit 03/07/2013 11:00a Main Office Max Whitlock, 782.3 Edema M.D. Office Visit 07/30/2012 3:20p Main Office Tristian Marks 696.8 Psoriasis Other Office Visit 07/12/2012 11:15a Main Office Max Whitlock, 380.4 Impacted Cerumen M.DRashmi 684 Impetigo V65.49 Counseling Other Spec v04.81 Need For Prophylactic Vaccination & Inoculation/Influenza v07.2 Prophylactic Immunotherapy Office Visit 06/07/2012 10:45a Main Office Max Bragg V77.91 Screening For Yohannes Whitlock Lipoid Disorders 244.9 Hypothyroidism Other Unspec 564.00 Constipation Unspecified 477.0 Rhinitis Allergic Due To Pollen 318.2 Mental Retardation Profound V70.0 Examination General Medical Routine AT Health Care Facility V76.51 Special Screening For Malignant Neoplasms Colon Office Visit 05/02/2012 10:20a Main Office Tristian Marks 380.4 Impacted Cerumen 318.2 Mental Retardation Profound V41.2 Hearing Problem Office Visit 04/05/2012 10:20a Main Office Marga Dunaway 380.4 Impacted Cerumen P.A. Office Visit 03/21/2012 1:45p Main Office Max Bragg 892.0 Open Wound Foot Yohannes Whitlock Except Toe(S) Alone W/O Complication 707.00 Pressure Ulcer, Unspecified Site Office Visit 07/04/2011 12:55p Main Office Max Whitlock M.D. 784.7 Epistaxis 380.4 Impacted Cerumen V72.83 Examination Preoperative Other Spec Office Visit 06/13/2011 4:30p Main Office Max Bragg 681.00 Cellulitis & Abscess Yohannes Whitlock Finger Unspec Office Visit 06/06/2011 2:45p Main Office Max Bragg 244.9 Hypothyroidism Other Yohannes Whitlock Unspec 696.1 Psoriasis Other 564.00 Constipation Unspecified 477.0 Rhinitis Allergic Due To Pollen 318.2 Mental Retardation Profound V65.49 Counseling Other Spec V70.0 Examination General Medical Routine AT Health Care Facility Office Visit 05/01/2011 4:20p Main Office Marga Columbia, 682.8 Cellulitis & P.A. Abscess Other Spec Sites Office Visit 03/09/2011 2:00p Main Office Max Bragg 780.79 Malaise And Fatigue Yohannes Whitlock Other 244.9 Hypothyroidism Other Unspec 784.7 Epistaxis 696.1 Psoriasis Other Office Visit 08/04/2010 Main Office Marga V04.81 Need For Prophylactic 4:20p [place], P.A. Vaccination & Inoculation/Influenza 681.02 Onychia & Paronychia Finger Office Visit 05/20/2010 10:15a Main Office Max Bragg 244.9 Hypothyroidism Kodak Whitlock M.D. Unspec 564.00 Constipation Unspecified 477.0 Rhinitis Allergic Due To Pollen 696.1 Psoriasis Other 600.00 Hypertrophy Prostate W/O Urinary Obstruction & Other Luts 318.2 Mental Retardation Profound V70.0 Examination General Medical Routine AT Health Care Facility V76.51 Special Screening For Malignant Neoplasms Colon V76.44 Screening For Malig Tripp Prostate Office Visit 04/19/2009 1:30p Main Office Max Bragg 244.9 Hypothyroidism Kodak Whitlock M.D. Unspec 564.00 Constipation Unspecified 477.0 Rhinitis Allergic Due To Pollen 696.1 Psoriasis Other 600.00 Hypertrophy Prostate W/O Urinary Obstruction & Other Luts 318.2 Mental Retardation Profound Office Visit 11/23/2008 1:10p Main Office Max Whitlock, 920 Contusion Face M.DRashmi Scalp & Neck Except Eyes 782.1 Rash & Other Nonspec Skin Eruption Office Visit 04/09/2008 9:05a Main Office Max Bragg 244.9 Hypothyroidism Kodak Whitlock M.D. Unspec 272.4 Hyperlipidemia Other Unspec 564.00 Constipation Unspecified 477.0 Rhinitis Allergic Due To Pollen 696.1 Psoriasis Other 600.00 Hypertrophy Prostate W/O Urinary Obstruction & Other Luts 318.2 Mental Retardation Profound V76.51 Special Screening For Malignant Neoplasms Colon V76.44 Screening For Malig Tripp Prostate V70.0 Examination General Medical Routine AT Health Care Facility Office Visit 07/01/2007 3:00p Main Office Max Whitlock, 380.4 Impacted Cerumen Yohannes 564.00 Constipation Unspecified 564.0 Constipation Office Visit 04/08/2007 12:55p Main Office Max A. 244.9 Hypothyroidism Kodak Whitlock M.D. Unspec 477.0 Rhinitis Allergic Due To Pollen 696.1 Psoriasis Other 600.00 Hypertrophy Prostate W/O Urinary Obstruction & Other Luts 564.00 Constipation Unspecified 564.0 Constipation V76.44 Screening For Malig Tripp Prostate 318.2 Mental Retardation Profound V76.51 Special Screening For Malignant Neoplasms Colon V70.0 Examination General Medical Routine AT Health Care Facility Office Visit 06/19/2006 5:00p Main Office Max Bragg 372.03 Conjunctivitis Yohannes Whitlock Mucopurulent Other Office Visit 03/06/2006 2:30p Main Office Max Bragg 244.9 Hypothyroidism Kodak Whitlock M.D. Unspec 696.1 Psoriasis Other 477.0 Rhinitis Allergic Due To Pollen 600.00 Hypertrophy Prostate W/O Urinary Obstruction & Other Luts 600.0 Hypertrophy Benign Of Prostate 796.4 Clinical Findings Abnormal Other 318.2 Mental Retardation Profound V70.0 Examination General Medical Routine AT Health Care Facility V76.51 Special Screening For Malignant Neoplasms Colon 564.0 Constipation V07.2 Prophylactic Immunotherapy V03.82 Streptococcus Pneumoniae Vaccination Spec Other Office Visit 02/23/2005 3:00p Main Office bridgett 460 Nasopharyngitis Acute Office Visit 02/10/2004 2:30p Main Office Max Bragg 244.9 Hypothyroidism Kodak Whitlock M.D. Unspec V06.5 Tetanus Diphtheria (DT) 318.2 Mental Retardation Profound 600.00 Hypertrophy Prostate W/O Urinary Obstruction & Other Luts 600.0 Hypertrophy Benign Of Prostate 696.1 Psoriasis Other 477.0 Rhinitis Allergic Due To Pollen Office Visit 09/29/2003 5:00p Main Office Max Bragg 461.9 Sinusitis Acute Yohannes Whitlock Unspec Plan of Treatment Future Appointment(s):06/25/2019 1:30 pm - Elliot Rivera D.O. at Main Ddnxjb2707/25/2018 - Elliot Rivera D.O.Z01.818 Encounter for other preprocedural examinationFollow up:as pdggjjredD25.9 Anemia, tohipfoxxndS32 Essential (primary) hypertensionComments:Leyla is cleared for surgery. He is optimized for surgery with his well care. He is a moderate risk due to developmental delay and polypharmacy.R01.1 Cardiac murmur, jefptrmiaybX07.9 Hypothyroidism, duveuoghprjB76.899 Other penitentiary (current) drug therapy
[2018-07-27 09:25] VITALS: BP 168/96
== END 2018-07-27 09:24 | disposition home or self-care (01) ==
LOC: ED 08:19
DX: T83.098A Other mechanical complication of other urinary catheter, initial encounter (principal); F79 Unspecified intellectual disabilities; Z88.1 Allergy status to other antibiotic agents; Z88.0 Allergy status to penicillin
CPT/HCPCS: 51702; 99282

== ENCOUNTER 2019-03-06 10:49 | Emergency (ER) | payer MEDICAID, MEDICARE ==
[2019-03-06 13:36] VITALS: BP 00/00
--- NOTE | 2019-03-06 14:09 | UC ---
Nausea/Vomiting/Diarrhea HPI - HPI Summary HPI Summary: 84-year-old male comes in today with a chief complaint of a single episode of diarrhea and a recorded temperature of 100.2. Patient has severe learning disabilities and is in a residential. His caregiver brought him here to have him further evaluated. No further fevers measured. Behavior has at baseline not changed. No more diarrhea. The caregiver checked his abdomen just prior to arrival here and he was nontender. Patient declines any Examination by myself. - History of Current Complaint Chief Complaint: UCGeneralIllness Stated Complaint: DIARRHEA Time Seen by Provider: 03/06/19 13:58 Pain Intensity: 0 - Allergies/Home Medications Allergies/Adverse Reactions: Allergies Allergy/AdvReac Type Severity Reaction Status Date / Time amoxicillin [From Augmentin] Allergy Unknown Verified 03/06/19 13:36 Reaction Details clavulanic acid Allergy Unknown Verified 03/06/19 13:36 [From Augmentin] Reaction Details PMH/Surg Hx/FS Hx/Imm Hx Previously Healthy: Yes - bph Endocrine History: Hypothyroidism Cardiovascular History: Hypertension - Surgical History Surgical History: Unable to Obtain/Confirm - Family History Known Family History: Positive: Unknown - LEVEL 5 CAVEAT secondary to MR - Social History Alcohol Use: None Substance Use Type: None Smoking Status (MU): Never Smoked Tobacco - Immunization History Most Recent Influenza Vaccination: fall 2016 Most Recent Pneumonia Vaccination: up to date per facility staff Review of Systems All Other Systems Reviewed And Are Negative: Yes Constitutional: Positive: Other - see hpi Skin: Positive: Negative Eyes: Positive: Negative ENT: Positive: Negative Respiratory: Positive: Negative Cardiovascular: Positive: Negative Gastrointestinal: Positive: Diarrhea Motor: Positive: Negative Neurovascular: Positive: Negative Musculoskeletal: Positive: Negative Neurological: Positive: Negative Psychological: Positive: Negative Is Patient Immunocompromised?: No Physical Exam Triage Information Reviewed: Yes Appearance: Well-Appearing, No Pain Distress, Well-Nourished Vital Signs: Initial Vital Signs Temp 97.7 F 03/06/19 13:33 Pulse 64 03/06/19 13:33 Resp 16 03/06/19 13:33 BP 00/00 03/06/19 13:33 Pulse Ox 99 03/06/19 13:33 Vital Signs Reviewed: Yes Eye Exam: Normal Eyes: Positive: Conjunctiva Clear Neck: Positive: Supple Respiratory: Positive: No respiratory distress Musculoskeletal: Positive: Strength Intact, ROM Intact Neurological: Positive: Alert, Muscle Tone Normal Psychological: Positive: Other: - normal response to personal care aide Naus/Vom/Diarrhea Course/Dx - Course Course Of Treatment: The patient would not allow a physical examination by myself. The caregiver reports that his abdomen was soft and nontender just prior to arrival and also that his baseline behavior is unchanged. No further diarrhea no fever measured here. The plan is we sent the patient home with a stool sample kit so be checking it and treating based on that. the caregiver the patient gets any worse he needs to go the emergency department for further evaluation and care. - Differential Dx/Diagnosis Provider Diagnosis: Diarrhea Condition At Discharge: Stable Discharge - Sign-Out/Discharge Documenting (check all that apply): Patient Departure All imaging exams completed and their final reports reviewed: No Studies - Discharge Plan Condition: Stable Disposition: HOME Patient Education Materials: Acute Diarrhea (ED) Referrals: Elliot Rivera DO [Primary Care Provider] - Additional Instructions: FOLLOW UP WITH YOUR DOCTOR IF NOT COMPLETELY IMPROVED. GO TO THE EMERGENCY DEPARTMENT IF STORMY'S CONDITION WORSENS; PAIN, FEVER, DEHYDRATION, HE APPEARS ILL OR ANY QUESTIONS OR CONCERNS. - Billing Disposition and Condition Condition: STABLE Disposition: Home
== END 2019-03-06 14:40 | disposition home or self-care (01) ==
LOC: UCEAST 10:49
DX: R19.7 Diarrhea, unspecified (principal); I10 Essential (primary) hypertension; E03.9 Hypothyroidism, unspecified
CPT/HCPCS: 99211; G0463

== ENCOUNTER 2019-03-09 08:03 | Emergency (ER) | payer MEDICARE, MEDICAID ==
--- NOTE | 2019-03-09 09:09 | UC ---
Eye Complaint HPI - HPI Summary HPI Summary: 84 y/o male presents to the urgent care accompany by caregiver from snf. Pt w/ PMHX of severe intellectual disabilities. Caregiver c/o Pt woke up this morning w/ his RT eye redness and yellowish crusting. She states pink eye is going around the snf in the past week. Caregiver states Pt is acting at his baseline, eating well, drinking fluids, urinating well w/ normal BMs. he was recently seen here at the urgent care for Diarrhea, but it has resolved by now. Caregiver denies fever, URI symptoms, cough, SOB, abdominal pain, N/V/D. - History of Current Complaint Chief Complaint: UCEye Stated Complaint: EYE ISSUE Time Seen by Provider: 03/09/19 09:07 Hx Obtained From: Family/Industrial Cafeteria Manager - Caregiver from the snf Hx From Patient Unobtainable Due To: Other - severe intelletual disabilities Onset/Duration: Gradual Onset, Lasting Days - 1 day, Still Present, Worse Since - this morning Timing: Constant Severity Initially: Mild Pain Intensity: 0 Pain Scale Used: unable to describe due to intelectual disability Location of Injury: Conjunctiva - RT conjunctiva redness Character: Dull Aggravating Factor(s): Blinking Alleviating Factor(s): Nothing Associated Signs And Symptoms: Positive: Drainage (Purulent) - crusting this morning from left eye. Negative: Photophobia, Vision Impairment Bilateral, Fever, Swelling Related History: Other - snf w/ some cases of pink eye - Risk Factors Penetrating Injury Risk Factor: Negative Acute Glaucoma Risk Factors: Negative Optic Artery Occlusion Risk Factors: Negative - Allergies/Home Medications Allergies/Adverse Reactions: Allergies Allergy/AdvReac Type Severity Reaction Status Date / Time amoxicillin [From Augmentin] Allergy Unknown Verified 03/09/19 08:19 Reaction Details clavulanic acid Allergy Unknown Verified 03/09/19 08:19 [From Augmentin] Reaction Details PMH/Surg Hx/FS Hx/Imm Hx Previously Healthy: Yes Endocrine History: Hypothyroidism, Dyslipidemia Other Endocrine History: Psoriasis Cardiovascular History: Hypertension - Surgical History Surgical History: Unable to Obtain/Confirm - Family History Known Family History: Positive: Unknown - LEVEL 5 CAVEAT secondary to MR - Social History Occupation: Disabled Lives: Retirement Alcohol Use: None Substance Use Type: None Smoking Status (MU): Never Smoked Tobacco - Immunization History Most Recent Influenza Vaccination: fall 2016 Most Recent Pneumonia Vaccination: up to date per facility staff Review of Systems All Other Systems Reviewed And Are Negative: Yes Constitutional: Positive: Negative Skin: Positive: Negative Eyes: Positive: Drainage - yellwoish crusting, Eye Redness - RT eye redness ENT: Positive: Negative Respiratory: Positive: Negative Cardiovascular: Positive: Negative Gastrointestinal: Positive: Negative Genitourinary: Positive: Negative Motor: Positive: Negative Neurovascular: Positive: Negative Musculoskeletal: Positive: Negative Neurological: Positive: Negative Psychological: Positive: Negative Is Patient Immunocompromised?: No Physical Exam - Summary Physical Exam Summary: Vital Signs Reviewed: Yes General: Well appearing, well nourished MR old male in no apparent pain or respiratory distress Eyes: Positive: RT Conjunctiva Inflamed - ,Visual hicks: full to confrontation. PERRLA, EOMI intact w/out limitation or complaint of pain. RT eyelashes w/ yellowish crusting drainage observed. No ciliary flush. No chemosis, No photophobia. Normal fundoscopic exam; no proptosis, exophthalmos, nystagmus. ENT: Positive: Normal ENT inspection, Hearing grossly normal, Pharynx normal, Nasal congestion, Nasal drainage - clear, TMs normal - B/L external ear canal clear , TM's WNL. Negative: Tonsillar swelling, Tonsillar exudate Neck: Positive: Supple, Nontender, No Lymphadenopathy Respiratory: Positive: Chest nontender, Lungs clear, Normal breath sounds, No respiratory distress Cardiovascular: Positive: RRR, No Murmur, Pulses Normal, Brisk Capillary Refill Abdomen Description: Positive: Nontender, No Organomegaly, Soft. Negative: CVA Tenderness (R), CVA Tenderness (L) Bowel Sounds: Positive: Present Musculoskeletal: Positive: Strength Intact, ROM Intact, No Edema Neurological Exam: Normal Psychological Exam: Normal Skin Exam: Normal Triage Information Reviewed: Yes Vital Signs: Initial Vital Signs Temp 97.4 F 03/09/19 08:13 Pulse 60 03/09/19 08:13 Resp 16 03/09/19 08:13 Pulse Ox 96 03/09/19 08:13 Eye Complaint Course/Dx - Course Course Of Treatment: 84 y/o male presents to the urgent care accompany by caregiver from snf. Pt w/ PMHX of severe intellectual disabilities. Caregiver c/o Pt woke up this morning w/ his RT eye redness and yellowish crusting. She states pink eye is going around the snf in the past week. Caregiver states Pt is acting at his baseline, eating well, drinking fluids, urinating well w/ normal BMs. he was recently seen here at the urgent care for Diarrhea, but it has resolved by now. Caregiver denies fever, URI symptoms, cough, SOB, abdominal pain, N/V/D. Hx obtained. Pt w/ Rt eye conjunctivitis on examination. Pt Rx Tobramycin ophthalmic drops as directed below. Caregiver advised to encourage hand washing to avoid spread and if symptoms do not improve or worsen to f/u with [employer] Dr Ben Kimball in 2-3 days. D/c instructions explained. Caregiver understood and agreed w/ plan of care. - Differential Dx/Diagnosis Differential Diagnosis/HQI/PQRI: Conjunctivitis, Keratitis, Uveitis Provider Diagnosis: Bacterial conjunctivitis of right eye Discharge - Sign-Out/Discharge Documenting (check all that apply): Patient Departure - D/C home All imaging exams completed and their final reports reviewed: No Studies - Discharge Plan Condition: Stable Disposition: HOME Prescriptions: Tobramycin 0.3% OPHTH.JOEY* 1 drop RIGHT EYE Q4H #1 btl Patient Education Materials: Conjunctivitis (ED) Referrals: Elliot Rivera DO [Primary Care Provider] - 3 Days Ben Kimball MD [Medical Doctor] - 3 Days Additional Instructions: 1-Please apply Tobramycin ophthalmic drops as instructed and finish the full course of treatment to avoid recurrent infection. Encourage hand washing to avoid spreading 2-If you do not improve or if symptoms worsen please f/u with his PCP or job interviewer Dr Kimball in 3 days for further evaluation and treatment - Billing Disposition and Condition Condition: STABLE Disposition: Home - Attestation Statements Provider Attestation: I was available for consult. This patient was seen by the [facility]. The patient was not presented to, seen by, or examined by me. -Nancy
== END 2019-03-09 09:52 | disposition home or self-care (01) ==
LOC: UCEAST 08:03
DX: H10.9 Unspecified conjunctivitis (principal); I10 Essential (primary) hypertension; L40.9 Psoriasis, unspecified; Z88.0 Allergy status to penicillin
CPT/HCPCS: 99212; G0463

== ENCOUNTER → 2019-05-13 13:17 | Emergency (ER) | payer MEDICARE, MEDICAID ==
[~2019-05-13 13:17] MED LIST: Haloperidol INJ IV/IM* 5 MG/ML AMP IM ONE; LORazepam INJ* 2 MG/ML 1 ML VIAL IM ONE; Lorazepam PYXIS KEY ONE; Lorazepam PYXIS KEY PRN; Midazolam* 1 MG/ML 2 ML VIAL (2 MG) IM ONE
--- NOTE | 2019-05-13 15:35 | ED ---
GI/ HPI - HPI Summary HPI Summary: This pt is an 84 y/o male presenting to [facility] referred by [facility] for evaluation of right inguinal hernia. jewel staker notes the aide who saw him this morning reported the pt's right inguinal hernia was bulging out more than usual. Additionally noted that his scrotum looked more swollen. When home care coordinator went to see the patient he noticed pt's hernia protrusion felt bigger than usual. Pt was taken to [facility] where the PA saw him and as she was palpating down pt's scrotum he jumped off the table. PA referred the pt to the ED to rule out incarceration. LBM today. PMHx includes bilateral hydroceles, right inguinal hernia dx in 2018. Medical decisions are made by advocate: Tamanna Bailey #: [phone]. Allergic to Augmentin, per home care coordinator. HPI IS LIMITED DUE TO LEVEL 5 CAVEAT - pt with MR - History of Current Complaint Chief Complaint: EDUrogenitalProblems Time Seen by Provider: 05/13/19 15:18 Stated Complaint: HERNIA ISSUE PER FAMILY Hx Obtained From: Family/Program Schedule Clerk Hx From Patient Unobtainable Due To: Other - LEVEL 5 CAVEAT - pt with MR Onset/Duration: Started Days Ago, Still Present Timing: Lasting Days Current Severity: Moderate Pain Intensity: 6 Location of Pain: Groin - right Associated Signs and Symptoms: Negative: Fever - Additional Pertinent History Primary Care Physician: [id number] - Allergy/Home Medications Allergies/Adverse Reactions: Allergies Allergy/AdvReac Type Severity Reaction Status Date / Time amoxicillin [From Augmentin] Allergy Unknown Verified 05/13/19 13:26 Reaction Details clavulanic acid Allergy Unknown Verified 05/13/19 13:26 [From Augmentin] Reaction Details Home Medications: Home Medications Adalimumab (NF) [Humira Pen (NF)] 40 mg SUBCUT Q14D 05/13/19 [History Confirmed 05/13/19] Aspirin EC TAB* [Ecotrin EC Low Dose 81 MG*] 81 mg PO EVERY OTHER DAY 05/13/19 [ History Confirmed 05/13/19] Calcitriol [Vectical] 3 mcg TOPICAL BID 05/13/19 [History Confirmed 05/13/19] Cholecalciferol (Vitamin D3) [Vitamin D3] 5,000 unit PO DAILY 05/13/19 [History Confirmed 05/13/19] Dimethicone [Cerave Baby] 1 % TOPICAL BID PRN 05/13/19 [History Confirmed ] Finasteride TAB* [Proscar TAB*] 5 mg PO DAILY 05/13/19 [History Confirmed ] Hydrocortisone Valerate 15 gm TOPICAL BID 05/13/19 [History Confirmed 05/13/19] Lactulose* 30 ml PO DAILY PRN 05/13/19 [History Confirmed 05/13/19] Mag Hydrox/Aluminum Hyd/Simeth [Maalox Maximum Strength Susp] 10 ml PO ACHS PRN 05/13/19 [History Confirmed 05/13/19] Multivitamins/Minerals TAB* [Theragran/minerals TAB*] 1 tab PO DAILY 05/13/19 [ History Confirmed 05/13/19] Polyethylene Glycol 3350* [Miralax*] 17 gm PO DAILY 05/13/19 [History Confirmed 05/13/19] Propylene Glycol/Peg 400/Pf [Systane 0.3-0.4% Eye Drops] 1 drop BOTH EYES Q4HR 05/13/19 [History Confirmed 05/13/19] Sodium Chloride [Wheeler Saline] 50 ml BOTH NARES BID PRN 05/13/19 [History Confirmed 05/13/19] Vitamins A & D OINT* [Vitamin A & D Oint*] 1 applic TOPICAL BID PRN 05/13/19 [ History Confirmed 05/13/19] Zinc Oxide [Desitin] 13 % TOPICAL TID PRN 05/13/19 [History Confirmed 05/13/19] PMH/Surg Hx/FS Hx/Imm Hx Endocrine/Hematology History: Reports: Hx Thyroid Disease - hypo Denies: Hx Diabetes Cardiovascular History: Reports: Hx Hypertension Respiratory History: Denies: Hx Asthma, Hx Chronic Obstructive Pulmonary Disease (COPD) GI History: Reports: Other GI Disorders - chronic constipation Denies: Hx Ulcer History: Reports: Other Problems/Disorders - Bilateral inguinal hernia Sensory History: Reports: Hx Cataracts - BILAT Denies: Hx Contacts or Glasses, Hx Hearing Aid Opthamlomology History: Reports: Hx Cataracts - BILAT Denies: Hx Contacts or Glasses Neurological History: Reports: Hx Developmental Delay, Other Neuro Impairments/ Disorders - [place] Palsy Psychiatric History: Reports: Hx Anxiety - excessive, 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 - Surgical History Hx Anesthesia Reactions: No - UNKNOWN - Immunization History Date of Tetanus Vaccine: utd Date of Influenza Vaccine: utd Infectious Disease History: No Infectious Disease History: 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 Denies: Hx Clostridium Difficile, Hx Hepatitis, Hx Human Immunodeficiency Virus (HIV), Hx of Known/Suspected MRSA, Hx Shingles, Hx Known/Suspected VRE, Hx Known/Suspected VRSA, History Other Infectious Disease, Traveled Outside the [place] in Last 30 Days - Family History Known Family History: Positive: Unknown - LEVEL 5 CAVEAT secondary to MR - Social History Alcohol Use: None Hx Substance Use: No Substance Use Type: Reports: None Hx Tobacco Use: No Smoking Status (MU): Never Smoked Tobacco Review of Systems - ROS Summary Review of Systems Summary: ROS IS LIMITED DUE TO LEVEL 5 CAVEAT - pt with MR Negative: Fever Gastrointestinal: Other - POSITIVE: right inguinal hernia, pain Genitourinary: Other - POSITIVE: scrotum swelling All Other Systems Reviewed And Are Negative: No Physical Exam - Summary Physical Exam Summary: Constitutional: elderly male, NAD Skin: Warm, Dry, old ecchymosis to bilateral knees. HENT: Normocephalic; Atraumatic Eyes: Conjunctiva normal Neck: Musculoskeletal ROM normal neck. Cardio: Rhythm regular, rate normal, Heart sounds normal; Intact distal pulses; Radial pulses are 2+ and symmetric. (-) Murmur Pulmonary/Chest wall: Effort normal. (-) Respiratory distress, (-) Wheezes, (-) Rales Abd: Soft, (-) tenderness, (-) Distension, (-) Guarding, (-) Rebound, Right inguinal hernia that is soft and easily reduced Musculoskeletal: (-) Edema Lymph: (-) Cervical adenopathy Neuro: Alert, unable to assess orientation as patient non verbal Psych: deferred Triage Information Reviewed: Yes Vital Signs On Initial Exam: Initial Vitals Temp Pulse Resp BP Pulse Ox 98.1 F 62 16 150/72 95 05/13/19 13:20 05/13/19 13:20 05/13/19 13:20 05/13/19 13:20 05/13/19 13:20 Vital Signs Reviewed: Yes Diagnostics - Vital Signs Vital Signs Temp Pulse Resp BP Pulse Ox 05/13/19 13:20 98.1 F 62 16 150/72 95 - Laboratory Result Diagrams: 05/13/19 15:22 05/13/19 15:22 Lab Statement: Any lab studies that have been ordered have been reviewed, and results considered in the medical decision making process. Re-Evaluation - Re-Evaluation First Eval Re-Evaluation Time: 18:07 Change: Improved Comment: Was able to reduce his hernia after pressure for 5 minutes. Staff says that currently his hernia looks like it does at baseline. Second Eval Re-Evaluation Time: 18:13 Comment: Pt is ambulating. Discussed discharge plan with staff. They will return if they are concerned about his hernia. GIGU Course/Dx - Course Course Of Treatment: 84-year-old male with a history of liver impairment, right inguinal hernia as well as bilateral hydroceles presents with concern for worsening pain and swelling of his right hernia. - Initial arrival to the emergency department patient is agitated (baseline) and unable to get a full exam secondary to behavioral status. Will try anxiolytic with ativcan as patient takes clonazepam at home. - Diagnoses Provider Diagnoses: Inguinal hernia Discharge - Sign-Out/Discharge Documenting (check all that apply): Patient Departure - Discharge home Patient Received Moderate/Deep Sedation with Procedure: No - Discharge Plan Condition: Stable Disposition: HOME Patient Education Materials: Inguinal Hernia (ED) Referrals: Elliot Rivera DO [Primary Care Provider] - Additional Instructions: You were seen in the emergency department for right groin swelling secondary to hernia Her physical exam was not concerning for an incarcerated hernia. Please bring Cedric back he has continued pain, swelling, if you're unable to reduce his hernia, he is unable to go to the bathroom, has fevers or you are concerned. If any studies were not completed at the time of discharge you will be called with the relevant results. Please follow up with your primary care doctor in next 2-3 days and return to emergency department for worsening or concerning symptoms. - Billing Disposition and Condition Condition: STABLE Disposition: Home - Attestation Statements Document Initiated by Scribe: Yes Documenting Scribe: Yasmeen Alas Provider For Whom Johne is Documenting (Include Credential): Jesus Hidalgo MD Scribe Attestation: Yasmeen Lang, scribed for Jesus Hidalgo MD on 05/13/19 at 1824. Scribe Documentation Reviewed: Yes Provider Attestation: The documentation as recorded by the lisaibYasmeen levi accurately reflects the service I personally performed and the decisions made by me, Jesus Hidalgo MD Status of Hernandez Document: Viewed
[2019-05-13 15:38] LABS: ABS Lymphocytes 1.8 10^3/ul (1.0-4.8); ABS Monocytes 0.8 10^3/ul (0-0.8); ABS Neutrophils 4.2 10^3/ul (1.5-7.7); Hematocrit 45 % (42-52); Hemoglobin 15.8 g/dL (14.0-18.0); Lymphocyte % 26.4 %; Mean Corpuscular HGB Conc 35 g/dL (31-36); Mean Corpuscular Hemoglobin 31 pg (27-31); Mean Corpuscular Volume 89 fL (80-94); Mean Platelet Volume 7.8 fL (7.4-10.4); Nucleated Red Blood Cells % 0.1; Platelet Count 256 10^3/uL (150-450); Red Blood Count 5.09 10^6 /uL (4.18-5.48); Red Cell Distribution Width 14 % (10-15); White Blood Count 6.9 10^3/uL (3.5-10.8)
[2019-05-13 16:24] LABS: BUN/Creatinine Ratio 26.2 (8-20); Calcium 9.8 mg/dL (8.6-10.3); EGFR African American 68.8 (>60); EGFR Non-African American 56.9 (>60); Globulin 3.9 g/dL (2-4); Potassium 4.2 mmol/L (3.5-5.0); Total Bilirubin 0.5 mg/dL (0.2-1.0); Total Protein 7.9 g/dL (6.4-8.9)
[2019-05-13 18:22] VITALS: BP 176/78
== END | disposition home or self-care (01) ==
LOC: ED 13:17
DX: K40.90 Unilateral inguinal hernia, without obstruction or gangrene, not specified as recurrent (principal); N50.89 Other specified disorders of the male genital organs; I10 Essential (primary) hypertension; F79 Unspecified intellectual disabilities; Z88.1 Allergy status to other antibiotic agents; Z88.0 Allergy status to penicillin
CPT/HCPCS: 36415; 80053; 85025; 96372; 99282; J1630; J2060; J2250

== ENCOUNTER 2019-09-01 09:58 | Emergency (ER) | payer MEDICARE, MEDICAID ==
--- OUTSIDE RECORDS SUMMARY | 2019-09-01 10:07 | XMS REPORT | Continuity of Care Document ---
:1935 External Reference #:[id number] Author Name Elliot Rivera D.O. Address [address] [place] [address] Care Team Providers Name Role Phone Ben Thompson MD - Care Team Information Occupational Health Nursing Director [phone] Otolaryngology Miguelito Mejia MD - Internal Care Team Information Occupational Health Nursing Director [phone] [facility] - Surgery Care Team Information Occupational Health Nursing Director Problems Active Problems Provider Date Hypothyroidism Max Whitlock M.D. Onset: 02/10/2004 Allergic rhinitis due to pollen Max Whitlock M.D. Onset: 02/10/2004 Benign prostatic hypertrophy without Max Whitlock M.D. Onset: 2006 outflow obstruction Constipation Max Whitlock M.D. Onset: 07/01/2007 Psoriasis Max Whitlock M.D. Onset: 01/11/2004 Profound intellectual disability Max Whitlock M.D. 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 Onset: 08/14/2014 Atherosclerosis of aorta Elliot Rivera D.O. Onset: 03/15/2015 Heart murmur Elliot Rivera D.O. Onset: 03/30/2016 Neoplasm of uncertain behavior of skin Elliot Rivera D.O. Onset: 06/16/2016 Essential hypertension Elliot Rivera D.O. Onset: 12/19/2016 Allergic rhinitis Elliot Rivera D.O. Onset: 02/12/2017 Peripheral vascular disease Tristian Marks Onset: 05/13/2019 Inactive Problems Obstructed inguinal hernia Tristian Marks Onset: 05/13/2019 Inactive: 07/22/2019 Social History Type Date Description Comments Sex Unknown Tobacco Use Start: Unknown Denies Cigarette Use Tobacco Use Reviewed: 07/04/11 Tobacco Of Any Kind Denies Use Smoking Status Reviewed: 07/22/19 Tobacco Of Any Kind Denies Use ETOH Use Denies alcohol use Tobacco Use Start: Unknown Non Smoker / No Tobacco Exercise Type/Frequency Exercises sporadically Allergies, Adverse Reactions, Alerts Active Allergies Reaction Severity Comments Date Augmentin REACTION UNKNOWN WAS ON FILE ON ADM TO 03/02/2005 CATHY NORIEGA Medications Active Medications SIG Qnty Indications Ordering Date Provider Vitamin D3 Take One Tablet By 30tabs [facility], 07/07/2019 5000Unit Mouth Every Day Elliot, D.O. Tablet (Diet Supplement) Levothyroxine Sodium Take 1 Tablet By 30tabs E03.9 [facility], 05/30/2019 Mouth Every Day Elliot, D.O. 50mcg Tablets (Hypothyroidism) Clonazepam 1 po every morning Unknown 05/12/2019 0.25mg before breakfast Tablets Dispers for anxiety Clonazepam 1 po at bedtime Unknown 05/12/2019 0.5mg for anxiety Tablets Dispers Allergy Take 1 Tablet By 90tabs [facility], 04/24/2019 10mg Tablets Mouth Every Day Elliot, D.O. (For Allergies) Claritin take one tablet by 90tabs [facility], 04/24/2019 10mg Tablets mouth once daily Elliot, D.O. as needed for allergy symptoms Atorvastatin Calcium Take 1 Tablet By 90tabs E78.4 [facility], 04/10/2019 Mouth Every Day Elliot, D.O. 80mg Tablets (1700=5PM) Colace take 2 capsules by 180caps K59.01 [facility], 03/25/2019 100mg Capsules mouth twice a day Elliot, D.O. (stool softening) Ear Flushing do not flush ears [facility], 03/21/2019 until ear drum has Elliot, D.O. been visualized without defect. Saline Mist Inland Inland Once In Each 45units [facility], 12/19/2018 0.65% Nostril Daily (For Elliot, D.O. Solution Dryness) [facility]um [facility] 11/[facility] 2% Time Every Day Elliot, D.O. Shampoo (Tar Bath) For Washing Body Finasteride Take 1 Tablet By 30tabs [facility], 10/21/2018 5mg Tablets Mouth Every Day Elliot, D.O. Metoprolol Tartrate take one tablet by 180tabs I10 [facility], 09/12/2018 mouth twice a day Elliot, D.O. 25mg Tablets Clonazepam take 1/2 tablet by 5tabs I10 [facility], 06/21/2018 0.5mg mouth 30 min prior Elliot, D.O. Tablets to cystoscopy/tovar replacement/lab draw for anxiety Systane Ultra 1 drop both eyes 75units [facility], 05/15/2018 Preservative Free as needed every 4 Elliot, D.O. hours for dry eyes 0.4-0.3% Solution as needed Tamsulosin HCL 1 by mouth every 90caps [facility], 04/18/2018 0.4mg day Elliot, D.O. Capsules Lactulose Give 2 Tablespoon 946units [facility], 04/18/2018 Encephalopathy (30cc) By Mouth Elliot, D.O. Every Day 10GM/15ML Solution (Constipation) Hold For >3 BM Per Day Or Diarrhea Chlorhexidine Swab 1 Teaspoon On 473units [facility], 04/18/2018 Gluconate Gums Twice Daily Elliot, D.O. 0.12% For Oral Care Solution [facility]iralax [facility], 03/21/2018 Powder 527GM (17GM=20cc) 8 Oz Elliot, D.O. Of Fluid By Mouth Every Day Hold For > 3 Stools/Day/Diarrhe a (Constipation) Zincon 1% Use 3 Times Weekly 118units [facility], 06/26/2017 Shampoo Elliot, D.O. Bacitracin (External) apply small amount Unknown 05/15/2017 to affected area 500Unit/GM Ointment twice daily as needed for minor skin abrasions/open sores Acetaminophen 2 by mouth every 8 120tabs M25.541 [facility], 05/15/2017 325mg hours, as needed, Yohannes Tavera Tablets ,may receive daily Calcitriol Apply To Legs 100units [facility], 04/18/2017 3mcg/GM Twice Daily After Elliot, D.O. Ointment Bath & Before Bed. (Psoriasis) Cerave Apply To Body 453units [facility], 02/05/2017 Cream Twice Daily (Dry Elliot, D.O. Skin) Am=After Bath/ PM=Before Bed Hydrocortisone apply to facial 45gm L40.0 [facility], 06/15/2016 Valerate lesions twice a Elliot, D.O. 0.2% Cream day as needed dryness, itching or redness Tylenol Supp Insert 1 rectally Unknown 06/15/2016 every 4 hrs prn temp >101 Ducodyl 10mg on day 2 if Unknown 06/15/[address] kal TURNER Guaifenesin 2 tsp po every 4 Unknown 06/15/2016 100mg/5ML hrs prn Liquid Dennis Saline Nasal Apply Inside 14.1units [facility], 06/13/2016 Gel Nostrils Twice Elliot, D.O. Daily (Dryness) Fleet Enema Insert 1 Rectally 665units [facility], 04/20/2016 On Day 3 Of No Elliot, D.O. 7-19GM/118ML Enema Bowel Movement By 4PM as Needed Tab-A-Boo/Iron take 1 tablet by 90tabs [facility], 03/15/2016 mouth every day Elliot, D.O. Tablets (diet supplement) Ibuprofen taking 2 tabs po 100tabs Max A. 09/30/2015 200mg Tablets every 4 h prn Yohannes Whitlock muscle aches or discomfort Antacid Anti-Gas Unknown 09/30/2015 [phone]/5ML Suspension Vitamin A & D ointment prn Unknown 09/30/2015 Oint Desitin prn Unknown 09/30/2015 Ointment Vitamin D-3 1 tab by mouth 90tabs [facility], 06/28/2015 5000Unit every day or 7 Elliot, D.O. Tablets tabs once a week Humira subq inj every Unknown 03/11/2015 40mg/0.8ML PSKT other week as directed Triamcinolone apply twice daily 454units [facility], 08/13/2014 Acetonide for 2 weeks Elliot, D.O. 0.1% Ointment alternating with diprolene ,not to face or folds (refer to rx#[id number]) Peridex 0.12% Oral Swab 1 Teaspoon On 473units [facility], 06/04/2014 Rinse So Gums Twice Daily Elliot, D.O. For Oral Care Nasal Moist Gel apply to inside of [facility], 02/02/2014 Gel nose 2 x a day # Elliot D.O. 90 day supply. Diprolene Apply To Affected 45units L40.0 [facility], 02/20/2012 0.05% Areas Twice Daily Elliot, D.O. Ointment Times 2 Weeks Alternating With Triamcinolone, Not To Face Or Folds Vectical Apply To Legs 100units L40.0 [facility], 02/20/2012 3mcg/GM Twice Daily After Elliot, D.O. Ointment Bath & Before Bed. (Psoriasis) Diapers Adult :Adult Medium 100units Max Bragg 06/27/2011 Pull-Up Due To Yohannes Whitlock Leakage Topiramate take 1 tab twice a 60tabs [facility], 06/05/2011 25mg Tablets day after meals Elliot D.O. Klonopin 1 at bed time 20tabs [facility], 03/05/2006 0.5mg Tablets Yohannes Tavera Tylenol give 2 tablets po 60tabs Max Bragg 11/28/2005 325mg Tablets [id number] prn for Yohannes Whitlock pain or fever >101.0f Aspirin Low Dose [facility], 11/28/2005 81mg mouth every other Elliot, D.O. Chewtabs day (prevent heart disease) Zincon Dandruff 3 x a week [facility], 1% Elliot, D.O. Shampoo Immunizations CPT Code Status Date Vaccine Lot # [id number] Given 06/21/2018 Influenza Vaccine Split Virus Preservative Free Im [id number] Use 39412 Given 06/20/2017 Influenza Virus Vaccine, Quadrivalent, Split, [id number] Preservative Free 78856 Given 06/16/2016 Influenza Virus Vaccine, Quadrivalent, Split, [id number] Preservative Free 11931 Given 06/14/2015 Zostavax [id number] 21734 Given 06/14/2015 Influenza Virus Vaccine, Quadrivalent, Split, [id number] Preservative Free 71767 Given 06/14/2015 Prevnar 13 [id number] 29344 Given 06/11/2014 Adacel or Boostrix, TDaP [id number] 19140 Given 06/11/2014 Influenza Vaccine Split Virus Preservative Free Im [id number] Use 40549 Given 07/28/2013 Flu, Split Virus 3Yrs [id number] 36834 Given 07/12/2012 Flu, Split Virus 3Yrs [id number] 90547 Given 08/22/2011 Flu, Split Virus 3Yrs [id number] 27554 Given 08/04/2010 Flu, Split Virus 3Yrs [id number] 10347 Given 09/22/2009 Flu, Split Virus 3Yrs [id number] 52399 Given 08/27/2008 Flu, Split Virus 3Yrs [id number] 42727 Given 08/29/2007 Flu, Split Virus 3Yrs [id number] 40791 Given 08/27/2006 Flu, Split Virus 3Yrs [id number] 04579 Given 03/06/2006 Pneumococcal Immunization [id number] 13773 Given 08/12/2004 Flu, Split Virus 3Yrs 92905 Given 02/10/2004 Td Immunization 66585 Given 08/01/2003 Flu, Split Virus 3Yrs Vital Signs Date Vital Result Comment 07/22/2019 9:15am BP Systolic 142 mmHg 07/14/19 by agency BP Diastolic 68 mmHg 07/14/19 by agency Weight 170.00 lb 05/2019 wt per staff 05/13/2019 11:25am BP Systolic 164 mmHg BP Diastolic 82 mmHg Results Test Date Facility Test Result H/L Range Note CBC Auto Diff 05/13/2019 [facility] White Blood 6.9 10^3/uL Normal 3.5-10.8 [phone] Count Red Blood Count 5.09 10^6/uL Normal 4.18-5.48 Hemoglobin 15.8 g/dL Normal 14.0-18.0 Hematocrit 45 % Normal 42-52 Mean Corpuscular Volume 89 fL Normal 80-94 Mean Corpuscular Hemoglobin 31 pg Normal 27-31 Mean Corpuscular HGB Conc 35 g/dL Normal 31-36 Red Cell Distribution Width 14 % Normal 10-15 Platelet Count 256 10^3/uL Normal 150-450 Mean Platelet Volume 7.8 fL Normal 7.4-10.4 Abs Neutrophils 4.2 10^3/uL Normal 1.5-7.7 Abs Lymphocytes 1.8 10^3/uL Normal 1.0-4.8 Abs Monocytes 0.8 10^3/uL Normal 0-0.8 Abs Eosinophils 0.0 10^3/uL Normal 0-0.6 Abs Basophils 0.0 10^3/uL Normal 0-0.2 Abs Nucleated RBC 0.0 10^3/uL Granulocyte % 61.9 % Lymphocyte % 26.4 % Monocyte % 11.4 % Eosinophil % 0.0 % Basophil % 0.3 % Nucleated Red Blood Cells % 0.1 Comp Metabolic Panel 05/13/2019 [facility] Sodium 136 mmol/L Normal 135-145 [phone] Potassium 4.2 mmol/L Normal 3.5-5.0 Chloride 105 mmol/L Normal 101-111 Co2 Carbon Dioxide 26 mmol/L Normal 22-32 Anion Gap 5 mmol/L Normal 2-11 Glucose 96 mg/dL Normal 70-100 Blood Urea Nitrogen 32 mg/dL High 6-24 Creatinine 1.22 mg/dL High 0.67-1.17 BUN/Creatinine Ratio 26.2 High 8-20 Calcium 9.8 mg/dL Normal 8.6-10.3 Total Protein 7.9 g/dL Normal 6.4-8.9 Albumin 4.0 g/dL Normal 3.2-5.2 Globulin 3.9 g/dL Normal 2-4 Albumin/Globulin Ratio 1.0 Normal 1-3 Total Bilirubin 0.50 mg/dL Normal 0.2-1.0 Alkaline Phosphatase 85 U/L Normal 34-104 Alt 29 U/L Normal 7-52 Ast 27 U/L Normal 13-39 Egfr Non- 56.9 >60 Egfr 68.8 >60 1 CBC Auto Diff 03/03/2019 [facility] White Blood 7.2 10^3/uL Normal 3.5-10.8 2 [phone] Count Red Blood Count 5.00 10^6/uL Normal 4.18-5.48 Hemoglobin 15.1 g/dL Normal 14.0-18.0 Hematocrit 44 % Normal 42-52 Mean Corpuscular Volume 89 fL Normal 80-94 Mean Corpuscular Hemoglobin 30 pg Normal 27-31 Mean Corpuscular HGB Conc 34 g/dL Normal 31-36 Red Cell Distribution Width 15 % Normal 10.5-15 Platelet Count 292 10^3/uL Normal 150-450 Mean Platelet Volume 8.2 fL Normal 7.4-10.4 Abs Neutrophils 4.2 10^3/uL Normal 1.5-7.7 Abs Lymphocytes 2.1 10^3/uL Normal 1.0-4.8 Abs Monocytes 0.8 10^3/uL Normal 0-0.8 Abs Eosinophils 0.0 10^3/uL Normal 0-0.6 Abs Basophils 0.0 10^3/uL Normal 0-0.2 Abs Nucleated RBC 0.0 10^3/uL Granulocyte % 58.7 % Lymphocyte % 29.5 % Monocyte % 11.4 % Eosinophil % 0.0 % Basophil % 0.4 % Nucleated Red Blood Cells % 0.2 Laboratory test 03/03/2019 [facility] D Dimer 248 ng/mL High Less Than 3 finding [phone] Quantitative 230 Rubella Screen Immune Immune Rubeola Measles Igg 03/03/2019 [facility] Rubeola (Measles) IgG Positive 4 AB [phone] Antibody Rubeola IgG Antibody Index >8.0 5 Mumps Igg 03/03/2019 [facility] Mumps Virus IgG Antibody Positive 6 [phone] Mumps IgG Antibody Index 6.6 7 Laboratory test 03/01/2019 [facility] Troponin-I 0.02 ng/mL <0.04 8 finding [phone] (TnI) CBC Auto Diff 03/01/2019 [facility] White Blood 8.5 Normal 3.5-10.8 [phone] Count 10^3/uL Red Blood Count 5.06 10^6/uL Normal 4.18-5.48 Hemoglobin 15.4 g/dL Normal 14.0-18.0 Hematocrit 45 % Normal 42-52 Mean Corpuscular Volume 89 fL Normal 80-94 Mean Corpuscular Hemoglobin 31 pg Normal 27-31 Mean Corpuscular HGB Conc 34 g/dL Normal 31-36 Red Cell Distribution Width 14 % Normal 10.5-15 Platelet Count 313 10^3/uL Normal 150-450 Mean Platelet Volume 8.0 fL Normal 7.4-10.4 Abs Neutrophils 5.6 10^3/uL Normal 1.5-7.7 Abs Lymphocytes 2.1 10^3/uL Normal 1.0-4.8 Abs Monocytes 0.8 10^3/uL Normal 0-0.8 Abs Eosinophils 0.0 10^3/uL Normal 0-0.6 Abs Basophils 0.0 10^3/uL Normal 0-0.2 Abs Nucleated RBC 0.0 10^3/uL Granulocyte % 65.9 % Lymphocyte % 24.7 % Monocyte % 9.2 % Eosinophil % 0.0 % Basophil % 0.2 % Nucleated Red Blood Cells % 0.0 Inr/Protime 03/01/2019 [facility] Inr 1.04 Normal 0.82-1.09 9 [phone] Laboratory test 03/01/2019 [facility] Partial 52.7 seconds High 26.0- 36.3 finding [phone] Thrombo Time PTT D Dimer Quantitative 274 ng/mL High Less Than 230 10 Lactic Acid 1.0 mmol/L Normal 0.5-2.0 11 Comp Metabolic Panel 03/01/2019 [facility] Sodium 138 mmol/L Normal 135-145 [phone] Potassium 4.1 mmol/L Normal 3.5-5.0 Chloride 106 mmol/L Normal 101-111 Co2 Carbon Dioxide 28 mmol/L Normal 22-32 Anion Gap 4 mmol/L Normal 2-11 Glucose 98 mg/dL Normal 70-100 Blood Urea Nitrogen 29 mg/dL High 6-24 Creatinine 1.36 mg/dL High 0.67-1.17 BUN/Creatinine Ratio 21.3 High 8-20 Calcium 9.8 mg/dL Normal 8.6-10.3 Total Protein 7.8 g/dL Normal 6.4-8.9 Albumin 4.1 g/dL Normal 3.2-5.2 Globulin 3.7 g/dL Normal 2-4 Albumin/Globulin Ratio 1.1 Normal 1-3 Total Bilirubin 0.50 mg/dL Normal 0.2-1.0 Alkaline Phosphatase 97 U/L Normal 34-104 Alt 29 U/L Normal 7-52 Ast 27 U/L Normal 13-39 Egfr Non- 50.2 >60 Egfr 60.7 >60 12 Laboratory test 03/01/2019 [facility] C Reactive 2.76 mg/L Normal < 8.01 finding [phone] Protein Troponin-I (TnI) 0.01 ng/mL <0.04 13 B-Type Natriuretic Peptide BNP 22 pg/mL <=100 Blood Culture SEE RESULT BELOW 14 1 Because ethnic data is not always [...] 5 Kidney failure <15 (or dialysis) 2 d-dimer has come down, dependign ont he lab, normal is below 250- 500. 3 Please note: The following may produce a false positive D Dimer test: - Rheumatoid factor greater than 60 IU/ml - Plasma hemoglobin greater than 0.05 gm/dl - Bilirubin greater than 50 mg/dl - Lipids greater than 1000 mg/dl - FDP greater than 20 ug/ml 4 Results suggest response to immunization or prior exposure to the virus. REFERENCE VALUE Vaccinated: Positive (>=1.1 AI) Unvaccinated: Negative (<=0.8 AI) 5 Test Performed by: [facility] [address] [place] [id number] Results suggest response to immunization or prior exposure to the virus. REFERENCE VALUE Vaccinated: Positive (>=1.1 AI) Unvaccinated: Negative (<=0.8 AI) 7 Test Performed by: [facility] [address] [place] [address] 8 Troponin-I testing on Plasma Separator Tubes (PST) has a known false positive rate of 0.20-0.40%. All positive troponins reflex immediately to secondary confirmatory testing. Using the [employer] Access Immunoassay systems, the 99th percentile upper reference limit was demonstrated to be < 0.03 ng/mL. 9 Standard intensity warfarin therapeutic range: 2.0-3.0 High intensity warfarin therapeutic range: 2.5-3.5 10 Please note: The following may produce a false positive D Dimer test: - Rheumatoid factor greater than 60 IU/ml - Plasma hemoglobin greater than 0.05 gm/dl - Bilirubin greater than 50 mg/dl - Lipids greater than 1000 mg/dl - FDP greater than 20 ug/ml 11 [facility] Severe Sepsis and Septic Shock Management [...] 5 Kidney failure <15 (or dialysis) 13 Troponin-I testing on Plasma Separator Tubes (PST) has a known false positive rate of 0.20-0.40%. All positive troponins reflex immediately to secondary confirmatory testing. Using the Nanoference DxI 800 Access Immunoassay systems, the 99th percentile upper reference limit was demonstrated to be < 0.03 ng/mL. 14 SEE RESULT BELOW Name: LEYLA CARRANZA : [address]: Johnny Kang MD Acct: [id number] Unit: [id number] AGE: 84 Location: ED Re03/01/19 SEX: M Status: REG ER SPEC: [id number] LAVERN: 03/01/19-[address] [facility] [address]: Johnny Kang MD REQ: [id number] RECD: 03/01/19 STATUS: SHAHEED SOLANO DR: Elliot Rivera DO _ SOURCE: BLOOD,VENO SPDESC: ORDERED: Blood Cult COMMENTS: L AC Procedure Result Reported Site Aerobic Culture Bottle Final 03/06/19- 1557 ML No Growth Day 5 Anaerobic Culture Bottle Final 03/06/19- 1557 ML No Growth Day 5 * ML - Main Lab . END OF REPORT DEPARTMENT OF PATHOLOGY, [address] [place] [address] Jeronimo Snatos M.D. Director [facility] # [id number] Procedures Date Code Description Status 04/15/2019 39519 X-Ray Hand-Two Views Completed 03/03/2019 07312 Oximetry, Multiple Determinations (Eg, During Exercise) Completed 09/14/2006 01685544 Colonoscopy Completed Medical Devices Description No Information Available Encounters Type Date Location Provider Dx Diagnosis Office Visit 07/22/2019 Main Office Elliot Rivera, Z00.01 Encounter for 9:15a D.O. general adult medical exam w abnormal findings K40.30 Unil inguinal hernia, w obst, w/o gangr, not spcf as recur I10 Essential (primary) hypertension I73.9 Peripheral vascular disease, unspecified R01.1 Cardiac murmur, unspecified E03.9 Hypothyroidism, unspecified L40.0 Psoriasis vulgaris Z91.81 History of falling W18.30xA Fall on same level, unspecified, initial encounter Office Visit 05/15/2019 1:15p Main Office Elliot Rivera, K40.30 Unil inguinal D.O. hernia, w obst, w/o gangr, not spcf as recur I10 Essential (primary) hypertension I73.9 Peripheral vascular disease, unspecified R01.1 Cardiac murmur, unspecified E03.9 Hypothyroidism, unspecified L40.0 Psoriasis vulgaris R60.9 Edema, unspecified Office Visit 05/13/2019 10:40a Main Office Marga Dunaway, K40.30 Unil inguinal P.A. hernia, w obst, w/o gangr, not spcf as recur I10 Essential (primary) hypertension I73.9 Peripheral vascular disease, unspecified Office Visit 04/15/2019 8:55a Main Office Elliot Rivera, M79.641 Pain in right D.O. hand I10 Essential (primary) hypertension R01.1 Cardiac murmur, unspecified E03.9 Hypothyroidism, unspecified L40.0 Psoriasis vulgaris Z79.899 Other technician terminal and repeater (current) drug therapy Office Visit 03/03/2019 10:20a Main Office Marga Dunaway, R06.02 Shortness of P.A. breath R07.89 Other chest pain I10 Essential (primary) hypertension M25.541 Pain in joints of right hand Z11.59 Encounter for screening for other viral diseases Assessments Date Code Description Provider 07/22/2019 Z00.01 Encounter for general adult medical Elliot Rivera D.O. examination with abnormal findings 07/22/2019 K40.30 Unilateral inguinal hernia, with Elliot Rivera D.O. obstruction, without gangrene, not specified as recurrent 07/22/2019 I10 Essential (primary) hypertension Elliot Rivera D.O. 07/22/2019 I73.9 Peripheral vascular disease, unspecified Elliot Rivera D.O. 07/22/2019 R01.1 Cardiac murmur, unspecified Elliot Rivera D.O. 07/22/2019 E03.9 Hypothyroidism, unspecified Elliot Rivera D.O. 07/22/2019 L40.0 Psoriasis vulgaris Elliot Rivera D.O. 07/22/2019 Z91.81 History of falling Elliot Rivera D.ORashmi 07/22/2019 W18.30xA Fall on same level, unspecified, initial Elliot Rivera D.O. encounter 05/15/2019 K40.30 Unilateral inguinal hernia, with Sopchak, Elliot, D.O. obstruction, without gangrene, not specified as recurrent 05/15/2019 I10 Essential (primary) hypertension Elliot Rivera D.O. 05/15/2019 I73.9 Peripheral vascular disease, unspecified Elliot Rivera D.O. 05/15/2019 R01.1 Cardiac murmur, unspecified Elliot Rivera D.O. 05/15/2019 E03.9 Hypothyroidism, unspecified Elliot Rivera D.O. 05/15/2019 L40.0 Psoriasis vulgaris Elliot Rivera D.O. 05/15/2019 R60.9 Edema, unspecified Elliot Rivera, D.O. 05/13/2019 K40.30 Unilateral inguinal hernia, with Marga [place], P.A. obstruction, without gangrene, not specified as recurrent 05/13/2019 I10 Essential (primary) hypertension Marga Dunaway, P.A. 05/13/2019 I73.9 Peripheral vascular disease, unspecified Marga [place], P.A. 04/15/2019 M79.641 Pain in right hand Elliot Rivera D.O. 04/15/2019 I10 Essential (primary) hypertension Elliot Rivera D.O. 04/15/2019 R01.1 Cardiac murmur, unspecified Elliot Rivera D.O. 04/15/2019 E03.9 Hypothyroidism, unspecified Elliot Rivera D.O. 04/15/2019 L40.0 Psoriasis vulgaris Elliot Rivera, D.O. 04/15/2019 Z79.899 Other correction (current) drug therapy Elliot Rivera D.O. 03/03/2019 R06.02 Shortness of breath Marga Dunaway, P.A. 03/03/2019 R07.89 Other chest pain Marga Dunaway, P.A. 03/03/2019 I10 Essential (primary) hypertension Marga [place], P.A. 03/03/2019 M25.541 Pain in joints of right hand Marga Dunaway, P.A. 03/03/2019 Z11.59 Encounter for screening for other viral Tristian Marks diseases Plan of Treatment Future Appointment(s):07/23/2020 3:30 pm - Elliot Rivera D.O. at [facility]107/22/2019 - Elliot Rivera D.O.Z00.01 Encounter for general adult medical examination with abnormal findingsFollow up:1 year DMHMK40.30 Unilateral inguinal hernia, with obstruction, without gangrene, not specified as ebadshrgbV30 Essential (primary) xiwklubphtdtI11.9 Peripheral vascular disease, wpkbflnluuyX33.1 Cardiac murmur, phnymtgaqruM64.9 Hypothyroidism, lkybuiwgbntW16.0 Psoriasis hmsusjcxI17.81 History of xhghjnaZ32.30xA Fall on same level, unspecified, initial encounter Functional Status Description No Information Available Mental Status Description No Information Available Referrals Description No Information Available
--- OUTSIDE RECORDS SUMMARY | 2019-09-01 10:07 | XMS REPORT | Continuity of Care Document ---
:1935 External Reference #:[id number] Author Name Tristian Marks (transmitted by agent of provider Elliot Rivera) Address [address] [place] [address] Care Team Providers Name Role Phone Ben Thompson MD - Care Team Information [employer] [phone] Otolaryngology Miugelito Mejia MD - Internal Care Team Information [employer] [phone] [facility] - Surgery Care Team Information [employer] Problems Active Problems Provider Date Hypothyroidism Max [...] Rivera D.O. Onset: 12/19/2016 Allergic rhinitis Elliot Rivera, D.O. Onset: 02/12/2017 Peripheral vascular disease Tristian Marks Onset: 05/13/2019 Obstructed inguinal hernia Tristian Marks Onset: 05/13/2019 Social History Type Date Description Comments Sex [...] WAS ON FILE ON ADM TO 03/02/[address] Medications Active Medications SIG Qnty Indications Ordering Date Provider Vitamin D3 Take One Tablet By 30tabs Formerly [facility], 07/07/2019 5000Unit Mouth Every Day Elliot, D.O. Tablet (Diet Supplement) Levothyroxine Sodium Take 1 Tablet By 30tabs E03.9 Formerly [facility], 05/30/2019 Mouth Every Day Elliot, D.O. 50mcg Tablets (Hypothyroidism) Clonazepam 1 po every morning Unknown 05/12/2019 0.25mg before breakfast Tablets Dispers for anxiety Clonazepam 1 po at bedtime Unknown 05/12/2019 0.5mg for anxiety Tablets Dispers Allergy Take 1 Tablet By 90tabs Formerly [facility], 04/24/2019 10mg Tablets Mouth Every Day Elliot, D.O. (For Allergies) Claritin take one tablet by 90tabs Formerly [facility], 04/24/2019 10mg Tablets mouth once daily Elliot, D.O. as needed for allergy symptoms Atorvastatin Calcium Take 1 Tablet By 90tabs E78.4 Formerly [facility], 04/10/2019 Mouth Every Day Elliot, D.O. 80mg Tablets (1700=5PM) Colace take 2 capsules by 180caps K59.01 Formerly [facility], 03/25/2019 100mg Capsules mouth twice a day Elliot, D.O. (stool softening) Ear Flushing do not flush ears Formerly [facility], 03/21/2019 until ear drum has Elliot, D.O. been visualized without defect. Saline Mist Bruington Bruington Once In Each 45units Formerly [facility], 12/19/2018 0.65% Nostril Daily (For Elliot, D.O. Solution Dryness) [facility]um [facility] 11/[facility] 2% Time Every Day Elliot, D.O. Shampoo (Tar Bath) For Washing Body Finasteride Take 1 Tablet By 30tabs Formerly [facility], 10/21/2018 5mg Tablets Mouth Every Day Elliot, D.O. Metoprolol Tartrate take one tablet by 180tabs I10 Formerly [facility], 09/12/2018 mouth twice a day Elliot, D.O. 25mg Tablets Clonazepam take 1/2 tablet by 5tabs I10 Formerly [facility], 06/21/2018 0.5mg mouth 30 min prior Elliot, D.O. Tablets to cystoscopy/tovar replacement/lab draw for anxiety Systane Ultra 1 drop both eyes 75units Formerly [facility], 05/15/2018 Preservative Free as needed every 4 Elliot, D.O. hours for dry eyes 0.4-0.3% Solution as needed Tamsulosin HCL 1 by mouth every 90caps Formerly [facility], 04/18/2018 0.4mg day Elliot, D.O. Capsules Lactulose [facility] 2 [facility], 04/18/2018 Encephalopathy (30cc) By Mouth Elliot, D.O. Every Day 10GM/15ML Solution (Constipation) Hold For >3 BM Per Day Or Diarrhea Chlorhexidine Swab 1 [facility]aspoon [facility], 04/18/2018 Gluconate Gums Twice Daily Elliot, D.O. 0.12% For Oral Care Solution [facility]iralax 1 [facility]ful [facility], 03/21/2018 Powder 527GM (17GM=20cc) 8 Oz Elliot, D.O. Of Fluid By Mouth Every Day Hold For > 3 Stools/Day/Diarrhe a (Constipation) Zincon 1% Use 3 Times Weekly 118units Former[facility], 06/26/2017 Shampoo Elliot, D.O. Bacitracin (External) apply small amount Unknown 05/15/2017 to affected area 500Unit/GM Ointment twice daily as needed for minor skin abrasions/open sores Acetaminophen 2 by mouth every 8 120tabs M25.541 [facility], 05/15/2017 325mg hours, as needed, Yohannes Tavera Tablets ,may receive daily Calcitriol Apply To Legs 100units Former[facility], 04/18/2017 3mcg/GM Twice Daily After Elliot, D.O. Ointment Bath & Before Bed. (Psoriasis) Cerave Apply To Body 453units Former[facility], 02/05/2017 Cream Twice Daily (Dry Elliot, D.O. Skin) Am=After Bath/ PM=Before Bed Hydrocortisone apply to facial 45gm L40.0 Former[facility], 06/15/2016 Valerate lesions twice a Elliot, D.O. 0.2% Cream day as needed dryness, itching or redness Tylenol Supp Insert 1 rectally Unknown 06/15/2016 every 4 hrs prn temp >101 Ducodyl 10mg on day 2 if Unknown 06/15/[address] kal TURNER Guaifenesin 2 tsp po every 4 Unknown 06/15/2016 100mg/5ML hrs prn Liquid [place] Saline Nasal Apply Inside 14.1units Formerly [facility], 06/13/2016 Gel Nostrils Twice Elliot, D.O. Daily (Dryness) Fleet Enema Insert 1 Rectally 665units Formerly [facility], 04/20/2016 On Day 3 Of No Elliot, D.O. 7-19GM/118ML Enema Bowel Movement By 4PM as Needed Tab-A-Boo/Iron take 1 tablet by 90tabs Formerly [facility], 03/15/2016 mouth every day Elliot, D.O. Tablets (diet supplement) Ibuprofen taking 2 tabs po 100tabs Max A. 09/30/2015 200mg Tablets every 4 h prn Yohannes Whitlock muscle aches or discomfort Antacid Anti-Gas Unknown 09/30/[phone]/5ML Suspension Vitamin A & D ointment prn Unknown 09/30/2015 Oint Desitin prn Unknown 09/30/2015 Ointment Vitamin D-3 1 tab by mouth 90tabs Formerly [facility], 06/28/2015 5000Unit every day or 7 Elliot, D.O. Tablets tabs once a week Humira subq inj every Unknown 03/11/2015 40mg/0.8ML PSKT other week as directed Triamcinolone apply twice daily 454units Former[facility], 08/13/2014 Acetonide for 2 weeks Elliot, D.O. 0.1% Ointment alternating with diprolene ,not to face or folds (refer to rx#[id number]) Peridex 0.12% Oral Swab 1 Teaspoon On 473units Former[facility], 06/04/2014 Rinse So Gums Twice Daily Elliot D.O. For Oral Care Nasal Moist Gel apply to inside of [facility], 02/02/2014 Gel nose 2 x a day # Elliot D.O. 90 day supply. Diprolene Apply To Affected 45units L40.0 [facility], 02/20/2012 0.05% Areas Twice Daily Elliot, D.O. Ointment Times 2 Weeks Alternating With Triamcinolone, Not To Face Or Folds Vectical Apply To Legs 100units L40.0 Formerly [facility], 02/20/2012 3mcg/GM Twice Daily After Elliot D.O. Ointment Bath & Before Bed. (Psoriasis) Diapers Adult :Adult Medium 100units Max Bragg 06/27/2011 Pull-Up Due To Yohannes Whitlock Leakage Topiramate take 1 tab twice a 60tabs Formerly [facility], 06/05/2011 25mg Tablets day after meals Elliot D.O. Klonopin 1 at bed time 20tabs [facility], 03/05/2006 0.5mg Tablets Yohannes Tavera Tylenol give 2 tablets po 60tabs Max Bragg 11/28/2005 325mg Tablets [id number] prn for Yohannes Whitlock pain or fever >101.0f Aspirin Low Dose take [facility], 11/28/2005 81mg mouth every other Elliot, D.O. Chewtabs day (prevent heart disease) Zincon Dandruff 3 x a week [facility], 1% Elliot, D.O. Shampoo Immunizations CPT Code Status Date Vaccine Lot # [id number] Given 06/21/2018 Influenza Vaccine Split Virus Preservative Free Im [id number] Use 53891 Given 06/20/2017 Influenza Virus Vaccine, Quadrivalent, Split, [id number] Preservative Free 38853 Given 06/16/2016 Influenza Virus Vaccine, Quadrivalent, Split, [id number] Preservative Free 03348 Given 06/14/2015 Zostavax [id number] 43439 Given 06/14/2015 Influenza Virus Vaccine, Quadrivalent, Split, [id number] Preservative Free 64688 Given 06/14/2015 Prevnar 13 [id number] 07889 Given 06/11/2014 Adacel or Boostrix, TDaP [id number] 32686 Given 06/11/2014 Influenza Vaccine Split Virus Preservative Free Im [id number] Use 89627 Given 07/28/2013 Flu, Split Virus 3Yrs [id number] 33803 Given 07/12/2012 Flu, Split Virus 3Yrs [id number] 56082 Given 08/22/2011 Flu, Split Virus 3Yrs [id number] 93696 Given 08/04/2010 Flu, Split Virus 3Yrs [id number] 77967 Given 09/22/2009 Flu, Split Virus 3Yrs [id number] 11573 Given 08/27/2008 Flu, Split Virus 3Yrs [id number] 22807 Given 08/29/2007 Flu, Split Virus 3Yrs [id number] 25373 Given 08/27/2006 Flu, Split Virus 3Yrs [id number] 22503 Given 03/06/2006 Pneumococcal Immunization [id number] 63565 Given 08/12/2004 Flu, Split Virus 3Yrs 46731 Given 02/10/2004 Td Immunization 96938 Given 08/01/2003 Flu, Split Virus 3Yrs Vital Signs Date Vital Result Comment 07/22/2019 9:15am BP Systolic 142 mmHg 07/14/19 by agency BP Diastolic 68 mmHg 07/14/19 by agency Weight 170.00 lb 05/2019 wt per staff 05/13/2019 11:25am BP Systolic 164 mmHg BP Diastolic 82 mmHg Results Test Date Facility Test Result H/L Range Note CBC Auto Diff 05/13/2019 [facility] White Blood 6.9 10^3/uL Normal 3.5-10.8 [phone] Count Red Blood Count 5.09 10^6/uL Normal [...] Cells % 0.1 Comp Metabolic Panel 05/13/2019 [facility] Sodium 136 mmol/L Normal 135-145 [phone] Potassium 4.2 mmol/L Normal 3.5-5.0 Chloride 105 [...] 68.8 >60 1 CBC Auto Diff 03/03/2019 [facility] White Blood 7.2 10^3/uL Normal 3.5-10.8 2 [phone] Count Red Blood Count 5.00 10^6/uL Normal [...] Blood Cells % 0.2 Laboratory test 03/03/2019 [facility] D Dimer 248 ng/mL High Less Than 3 finding [phone] Quantitative 230 Rubella Screen Immune Immune Rubeola Measles Igg 03/03/2019 [facility] Rubeola (Measles) IgG Positive 4 AB [phone] Antibody Rubeola IgG Antibody Index >8.0 5 Mumps Igg 03/03/2019 [facility] Mumps Virus IgG Antibody Positive 6 [phone] Mumps IgG Antibody Index 6.6 7 Laboratory test 03/01/2019 [facility] Troponin-I 0.02 ng/mL <0.04 8 finding [phone] (TnI) CBC Auto Diff 03/01/2019 [facility] White Blood 8.5 Normal 3.5-10.8 [phone] Count 10^3/uL Red Blood Count 5.06 10^6/uL [...] Red Blood Cells % 0.0 Inr/Protime 03/01/2019 [facility] Inr 1.04 Normal 0.82-1.09 9 [phone] Laboratory test 03/01/2019 [facility] Partial 52.7 seconds High 26.0- 36.3 finding [phone] Thrombo Time PTT D Dimer Quantitative 274 ng/mL High Less Than 230 10 Lactic Acid 1.0 mmol/L Normal 0.5-2.0 11 Comp Metabolic Panel 03/01/2019 [facility] Sodium 138 mmol/L Normal 135-145 [phone] Potassium 4.1 mmol/L Normal 3.5-5.0 Chloride 106 [...] Egfr 60.7 >60 12 Laboratory test 03/01/2019 [facility] C Reactive 2.76 mg/L Normal < 8.01 finding [phone] Protein Troponin-I (TnI) 0.01 ng/mL <0.04 13 [...] Negative (<=0.8 AI) 5 Test Performed by: [facility] [place] [address] [place] [address] 6 Results suggest response to immunization or prior exposure to the virus. REFERENCE VALUE Vaccinated: Positive (>=1.1 AI) Unvaccinated: Negative (<=0.8 AI) 7 Test Performed by: [facility] [place] [address] [place] [address] 8 Troponin-I testing on Plasma Separator Tubes (PST) has a known false positive rate of 0.20-0.40%. All positive troponins reflex immediately to secondary confirmatory testing. Using the apomio 800 Access Immunoassay systems, the 99th percentile [...] - FDP greater than 20 ug/ml 11 [facility] Severe Sepsis and Septic Shock Management [...] immediately to secondary confirmatory testing. Using the [email or web address] DxI 800 Access Immunoassay systems, the 99th percentile upper reference limit was demonstrated to be < 0.03 ng/mL. 14 SEE RESULT BELOW Name: LEYLA CARRANZA : [address]: Johnny Kang MD Acct: [id number] Unit: [id number] AGE: [id number] Location: ED Re03/01/19 SEX: M Status: REG ER SPEC: [id number] LAVERN: 03/01/19-[address] [facility] [address]: Johnny Kang MD REQ: [id number] RECD: 03/01/19 STATUS: SHAHEED LENTZ DR: Elliot Rivera DO _ SOURCE: BLOOD,VENO SPDESC: ORDERED: Blood Cult COMMENTS: L AC Procedure Result Reported Site Aerobic Culture Bottle Final 03/06/19- 1557 ML No Growth Day 5 Anaerobic Culture Bottle Final 03/06/19- 1557 ML No Growth Day 5 * ML - Main Lab . END OF REPORT DEPARTMENT OF PATHOLOGY, [address] [place] [address] Jeronimo Santos M.D. Director [facility] # [id number] Procedures Date Code Description Status 04/15/2019 75029 X-Ray Hand-Two Views Completed 03/03/2019 49549 Oximetry, Multiple Determinations (Eg, During Exercise) Completed 09/14/2006 52410307 Colonoscopy Completed Medical Devices Description No Information [...] Hypothyroidism, unspecified L40.0 Psoriasis vulgaris Z79.899 Other prison (current) drug therapy Office Visit 03/03/2019 10:20a Main Office Marga Dunaway, R06.02 Shortness of P.A. breath R07.89 Other chest pain I10 Essential (primary) hypertension M25.541 Pain in joints of right hand Z11.59 Encounter for screening for other viral diseases Assessments Date Code Description Provider 07/22/2019 Z00.01 Encounter for general adult medical Elliot Rivera D.ORashmi examination with abnormal findings 07/22/2019 K40.30 Unilateral inguinal hernia, with Elliot Rivera D.O. obstruction, without gangrene, not specified as recurrent 07/22/2019 I10 Essential (primary) hypertension Elliot Rivera D.ORashmi 07/22/2019 I73.9 Peripheral vascular disease, unspecified Elliot Rivera D.ORashmi 07/22/2019 R01.1 Cardiac murmur, unspecified Elliot Rivera D.O. 07/22/2019 E03.9 Hypothyroidism, unspecified Elliot Rivera D.ORashmi 07/22/2019 L40.0 Psoriasis vulgaris Elliot Rivera D.ORashmi 07/22/2019 Z91.81 History of falling Elliot Rivera D.O. 07/22/2019 W18.30xA Fall on same level, unspecified, initial Elliot Rivera D.O. encounter 05/15/2019 K40.30 Unilateral inguinal hernia, with Elliot Rivera D.O. obstruction, without gangrene, not specified as recurrent 05/15/2019 I10 Essential (primary) hypertension Elliot Rivera D.O. 05/15/2019 I73.9 Peripheral vascular disease, unspecified Elliot Rivera, D.O. 05/15/2019 R01.1 Cardiac murmur, unspecified Elliot Rivera D.O. 05/15/2019 E03.9 Hypothyroidism, unspecified Elliot Rivera D.O. 05/15/2019 L40.0 Psoriasis vulgaris Elliot Rivera D.O. 05/15/2019 R60.9 Edema, unspecified Elliot Rivera, D.O. 05/13/2019 K40.30 Unilateral inguinal hernia, with Marga [place], P.A. obstruction, without gangrene, not specified as recurrent 05/13/2019 I10 Essential (primary) hypertension Marga Dunaway, P.A. 05/13/2019 I73.9 Peripheral vascular disease, unspecified Marga [place], P.A. 04/15/2019 M79.641 Pain in right hand ChristianchakElliot D.O. 04/15/2019 I10 Essential (primary) hypertension Elliot Rivera D.O. 04/15/2019 R01.1 Cardiac murmur, unspecified Elliot Rivera D.O. 04/15/2019 E03.9 Hypothyroidism, unspecified Elliot Rivera D.O. 04/15/2019 L40.0 Psoriasis vulgaris Elliot Rivera, D.O. 04/15/2019 Z79.899 Other prison (current) drug therapy Elliot Rivera D.O. 03/03/2019 R06.02 Shortness of breath Mraga Dunaway, P.A. 03/03/2019 R07.89 Other chest pain Marga Dunaway, P.A. 03/03/2019 I10 Essential (primary) hypertension Marga [place], P.A. 03/03/2019 M25.541 Pain in joints of right hand Marga Dunaway, P.A. 03/03/2019 Z11.59 Encounter for screening for other viral Tristian Marks diseases Plan of Treatment 07/22/2019 - Elliot Rivera D.O.Z00.01 Encounter for general adult medical examination with abnormal findingsFollow up:1 year DMHMK40.30 Unilateral inguinal hernia, with obstruction, without gangrene, not specified as [id number] Essential (primary) ayjfydxpgxvoD58.9 Peripheral vascular disease, mnetzimolopL51.1 Cardiac murmur, jmrygvpywkhC53.9 Hypothyroidism, xrczcuziecwK57.0 Psoriasis jehudhzaZ08.81 History of tfrkluzJ13.30xA Fall on same level, unspecified, initial encounter Functional Status Description No Information Available Mental Status Description No Information Available Referrals Description No Information Available
--- OUTSIDE RECORDS SUMMARY | 2019-09-01 10:07 | XMS REPORT | Continuity of Care Document ---
:1935 External Reference #:[id number] Author Name Elliot Rivera D.O. Address [address] [place] [address] Care Team Providers Name Role Phone Ben Thompson MD - Care Team Information Station Attendant [phone] Otolaryngology Miguelito Mejia MD - Internal Care Team Information Station Attendant [phone] [facility] - Surgery Care Team Information Station Attendant Problems Active Problems Provider Date Hypothyroidism Max [...] Any Kind Denies Use Smoking Status Reviewed: 08/29/19 Tobacco Of Any Kind Denies Use ETOH Use Denies alcohol use Tobacco Use Start: Unknown Non Smoker / No Tobacco Exercise Type/Frequency Exercises sporadically Allergies, Adverse Reactions, Alerts Active Allergies Reaction Severity Comments Date Augmentin REACTION UNKNOWN WAS ON FILE ON ADM TO 03/02/[address] Medications Active Medications SIG Qnty Indications Ordering Date Provider Clonazepam take 1 tablet by 1tabs I10 [facility], 08/29/2019 0.5mg mouth 30 min prior Elliot, D.O. Tablets to EKG Miralax 1.5 capfuls 510gm K59.03 [facility], 07/23/2019 3350NF Powder (25.5gm=30cc) 12 Elliot, D.O. oz of fluid by mouth every day hold for > 3 stools/day/diarrhe a (constipation) Vitamin D3 Take One Tablet By 30tabs [facility], 07/07/2019 5000Unit Mouth Every Day Elliot, D.O. Tablet (Diet Supplement) Levothyroxine Sodium Take 1 Tablet By 30tabs E03.9 [facility], 05/30/2019 Mouth Every Day Elliot, D.O. 50mcg Tablets (Hypothyroidism) Clonazepam 1 po every morning Unknown 05/12/2019 0.25mg before breakfast Tablets Dispers for anxiety Clonazepam 1 po at bedtime Unknown 05/12/2019 0.5mg for anxiety Tablets Dispers Allergy Take 1 Tablet By 90tabs [facility], 04/24/2019 10mg Tablets Mouth Every Day Elliot, D.O. (For Allergies) Claritin take one tablet by 90tabs [facility], 04/24/2019 10mg Tablets mouth once daily Elliot, D.O. as needed for allergy symptoms Atorvastatin Calcium Take 1 Tablet By 90tabs E78.4 [facility], 04/10/2019 Mouth Every Day Elliot, D.O. 80mg Tablets (1700=5PM) Colace take 2 capsules by 180caps K59.01 [facility], 03/25/2019 100mg Capsules mouth twice a day Elliot, D.O. (stool softening) Ear Flushing do not flush ears [facility], 03/21/2019 until ear drum has Elliot, D.O. been visualized without defect. Saline Mist [place] spray once in each 45units J31.0 [facility], 12/19/2018 0.65% nostril daily (for Elliot, D.O. Solution dryness) Tarsum Professional 2 Capfuls AT Bath 236units [facility], 11/27/2018 2% Time Every Day Elliot, D.O. Shampoo (Tar Bath) For Washing Body Finasteride Take 1 Tablet By 30tabs [facility], 10/21/2018 5mg Tablets Mouth Every Day Elliot, D.O. Metoprolol Tartrate (Take BP Prior To 60tabs I10 [facility], 09/12/2018 Giving This Med) 1 Elliot, D.O. 25mg Tablets Tab By Mouth 2 Times A Day * Hold If BP Lower Than 90/60 Or Pulse Lower Than 60 Take Vitals First Systane Ultra 1 drop both eyes 75units [facility], 05/15/2018 Preservative Free as needed every 4 Elliot, D.O. hours for dry eyes 0.4-0.3% Solution as needed Tamsulosin HCL 1 by mouth every 90caps [facility], 04/18/2018 0.4mg day Elliot, D.O. Capsules Lactulose Give 2 Tablespoon 946units [facility], 04/18/2018 Encephalopathy (30cc) By Mouth Elliot, D.O. Every Day 10GM/15ML Solution (Constipation) Hold For >3 BM Per Day Or Diarrhea Chlorhexidine Swab 1 Teaspoon On 473units [facility], 04/18/2018 Gluconate Gums Twice Daily Elliot, D.O. 0.12% For Oral Care Solution Zincon 1% Use 3 Times Weekly 118units [facility], 06/26/2017 Shampoo Elliot, D.O. Bacitracin (External) apply small amount Unknown 05/15/2017 to affected area 500Unit/GM Ointment twice daily as needed for minor skin abrasions/open sores Acetaminophen 2 by mouth every 8 120tabs M25.541 [facility], 05/15/2017 325mg hours, as needed, Yohannes Tavera Tablets ,may receive daily Calcitriol Apply To Legs 100units [facility], 04/18/2017 3mcg/GM Twice Daily After Elliot, D.O. Ointment Bath & Before Bed. (Psoriasis) Cerave Apply To Body 453units [facility], 02/05/2017 Cream Twice Daily (Dry Elliot D.O. Skin) Am=After Bath/ PM=Before Bed Guaifenesin 2 tsp po every 4 Unknown 06/15/2016 100mg/5ML hrs prn Liquid Ducodyl 15mg on day 2 if 30tabs K59.00 [facility], 06/15/[address] joanne Zarate D.O. Tylenol Supp Insert 1 rectally Unknown 06/15/2016 every 4 hrs prn temp >101 Hydrocortisone apply to facial 45gm L40.0 [facility], 06/15/2016 Valerate lesions twice a Elliot, D.O. 0.2% Cream day as needed dryness, itching or redness [place] Saline Nasal Apply Inside 14.1units [facility], 06/13/2016 Gel Nostrils Twice Elliot, D.O. Daily (Dryness) Fleet Enema Insert 1 Rectally 665units [facility], 04/20/2016 On Day 3 Of Joanne Zarate D.ORashmi 7-19GM/118ML Enema Bowel Movement By 4PM as Needed Tab-A-Boo/Iron take 1 tablet by 90tabs [facility], 03/15/2016 mouth every day Elliot D.O. Tablets (diet supplement) Desitin prn Unknown 09/30/2015 Ointment Vitamin A & D ointment prn Unknown 09/30/2015 Oint Antacid Anti-Gas Unknown 09/30/2015 [phone]/5ML Suspension Ibuprofen taking 2 tabs po 100tabs Max A. 09/30/2015 200mg Tablets every 4 h prn Yohannes Whitlock muscle aches or discomfort Humira subq inj every Unknown 03/11/2015 40mg/0.8ML PSKT other week as directed Triamcinolone apply twice daily 454units [facility], 08/13/2014 Acetonide for 2 weeks Elliot, D.O. 0.1% Ointment alternating with diprolene ,not to face or folds (refer to rx#[id number]) Nasal Moist Gel apply to inside of [facility], 02/02/2014 Gel nose 2 x a day # Elliot D.O. 90 day supply. Diprolene Apply To Affected 45units L40.0 [facility], 02/20/2012 0.05% Areas Twice Daily Elliot, D.O. Ointment Times 2 Weeks Alternating With Triamcinolone, Not To Face Or Folds Vectical Apply To Legs 100units L40.0 [facility], 02/20/2012 3mcg/GM Twice Daily After Elliot, D.O. Ointment Bath & Before Bed. (Psoriasis) Diapers Adult :Adult Medium 100units [facility] 06/27/2011 Pull-Up Due To Yohannes Whitlock Leakage Topiramate take 1 tab twice a 60tabs [facility], 06/05/2011 25mg Tablets day after meals Elliot D.O. Klonopin 1 at bed time 20tabs [facility] 03/05/2006 0.5mg Tablets Yohannes Tavera Tylenol give 2 tablets po 60tabs Max Bragg 11/28/2005 325mg Tablets [id number] prn for Yohannes Whitlock pain or fever >101.0f [facility]in [facility] D[facility] 81mg mouth every other Elliot, D.O. Chewtabs day (prevent heart disease) Zincon Dandruff 3 x a week [facility], 1% Elliot, D.O. Shampoo Immunizations CPT Code Status Date Vaccine Lot # [id number] Given 08/15/2019 Influenza Vaccine, Inactivated, Subunit, [id number] Adjuvanted, For [facility] [address] Given 06/21/2018 Influenza Vaccine Split Virus Preservative Free Im [id number] Use 34798 Given 06/20/2017 Influenza Virus Vaccine, Quadrivalent, Split, [id number] Preservative Free 45093 Given 06/16/2016 Influenza Virus Vaccine, Quadrivalent, Split, [id number] Preservative Free 65157 Given 06/14/2015 Zostavax [id number] 25711 Given 06/14/2015 Influenza Virus Vaccine, Quadrivalent, Split, [id number] Preservative Free 60497 Given 06/14/2015 Prevnar 13 [id number] 00324 Given 06/11/2014 Adacel or Boostrix, TDaP [id number] 73644 Given 06/11/2014 Influenza Vaccine Split Virus Preservative Free Im [id number] Use 39042 Given 07/28/2013 Flu, Split Virus 3Yrs [id number] 48791 Given 07/12/2012 Flu, Split Virus 3Yrs [id number] 31008 Given 08/22/2011 Flu, Split Virus 3Yrs [id number] 62557 Given 08/04/2010 Flu, Split Virus 3Yrs [id number] 41484 Given 09/22/2009 Flu, Split Virus 3Yrs [id number] 63771 Given 08/27/2008 Flu, Split Virus 3Yrs [id number] 66553 Given 08/29/2007 Flu, Split Virus 3Yrs [id number] 37552 Given 08/27/2006 Flu, Split Virus 3Yrs [id number] 30843 Given 03/06/2006 Pneumococcal Immunization [id number] 22730 Given 08/12/2004 Flu, Split Virus 3Yrs 53476 Given 02/10/2004 Td Immunization 13638 Given 08/01/2003 Flu, Split Virus 3Yrs Vital Signs Date Vital Result Comment 08/29/2019 5:12pm BP Systolic 140 mmHg BP Diastolic 80 mmHg Heart Rate 59 /min O2 % BldC Oximetry 96 % Weight 165.00 lb 07/22/2019 9:15am BP Systolic 142 mmHg 07/14/19 by agency BP Diastolic 68 mmHg 07/14/19 by agency Weight 170.00 lb 05/2019 wt per staff Results Test Acquired Date Facility Test Result H/L Range Note CBC Auto 07/31/2019 [facility] White Blood 6.9 10^3/uL Normal 3.5- 10.8 Diff [phone] Count Red Blood Count 5.27 10^6/uL Normal 4.18-5.48 Hemoglobin 16.2 g/dL Normal 14.0-18.0 Hematocrit 46 % Normal 42-52 Mean Corpuscular Volume 88 fL Normal 80-94 Mean Corpuscular Hemoglobin 31 pg Normal 27-31 Mean Corpuscular HGB Conc 35 g/dL Normal 31-36 Red Cell Distribution Width 14 % Normal 10-15 Platelet Count 293 10^3/uL Normal 150-450 Mean Platelet Volume 8.3 fL Normal 7.4-10.4 Abs Neutrophils 4.2 10^3/uL Normal 1.5-7.7 Abs Lymphocytes 1.8 10^3/uL Normal 1.0-4.8 Abs Monocytes 0.8 10^3/uL Normal 0-0.8 Abs Eosinophils 0.0 10^3/uL Normal 0-0.6 Abs Basophils 0.0 10^3/uL Normal 0-0.2 Abs Nucleated RBC 0.0 10^3/uL Granulocyte % 61.9 % Lymphocyte % 26.2 % Monocyte % 11.8 % Eosinophil % 0.0 % Basophil % 0.1 % Nucleated Red Blood Cells % 0.0 Comp Metabolic Panel 07/31/2019 [facility] Sodium 135 mmol/L Normal 135-145 [phone] Potassium 4.3 mmol/L Normal 3.5-5.0 Chloride 106 mmol/L Normal 101-111 Co2 Carbon Dioxide 25 mmol/L Normal 22-32 Anion Gap 4 mmol/L Normal 2-11 Glucose 101 mg/dL High 70-100 Blood Urea Nitrogen 26 mg/dL High 6-24 Creatinine 1.19 mg/dL High 0.67-1.17 BUN/Creatinine Ratio 21.8 High 8-20 Calcium 9.6 mg/dL Normal 8.6-10.3 Total Protein 7.3 g/dL Normal 6.4-8.9 Albumin 3.8 g/dL Normal 3.2-5.2 Globulin 3.5 g/dL Normal 2-4 Albumin/Globulin Ratio 1.1 Normal 1-3 Total Bilirubin 0.50 mg/dL Normal 0.2-1.0 Alkaline Phosphatase 96 U/L Normal 34-104 Alt 25 U/L Normal 7-52 Ast 23 U/L Normal 13-39 Egfr Non- 58.5 >60 Egfr 70.8 >60 1 Laboratory test 07/31/2019 [facility] TSH (Thyroid 3.99 mcIU/mL Normal 0.34-5.60 finding [phone] Stim [facility]) CBC Auto Diff 05/13/2019 [facility] White Blood 6.9 10^3/uL Normal 3.5-10.8 [phone] Count Red Blood Count 5.09 10^6/uL Normal [...] Cells % 0.1 Comp Metabolic Panel 05/13/2019 [facility] Sodium 136 mmol/L Normal 135-145 [phone] Potassium 4.2 mmol/L Normal 3.5-5.0 Chloride 105 [...] Egfr Non- 56.9 >60 Egfr 68.8 >60 2 Mumps Igg 03/03/2019 [facility] Mumps Virus IgG Antibody Positive 3, 4 [phone] Mumps IgG Antibody Index 6.6 5 Rubeola Measles Igg 03/03/2019 [facility] Rubeola (Measles) IgG Positive 6 AB [phone] Antibody Rubeola IgG Antibody Index >8.0 7 Laboratory test 03/03/2019 [facility] D Dimer 248 ng/mL High Less Than 8 finding [phone] Quantitative 230 Rubella Screen Immune Immune CBC Auto Diff 03/03/2019 [facility] White Blood 7.2 10^3/uL Normal 3.5-10.8 [phone] Count Red Blood Count 5.00 10^6/uL Normal [...] Red Blood Cells % 0.2 Laboratory test 03/01/2019 [facility] Troponin-I 0.02 ng/mL <0.04 9 finding [phone] (TnI) CBC Auto Diff 03/01/2019 [facility] White Blood 8.5 Normal 3.5-10.8 [phone] Count 10^3/uL Red Blood Count 5.06 10^6/uL [...] Red Blood Cells % 0.0 Inr/Protime 03/01/2019 [facility] Inr 1.04 Normal 0.82-1.09 10 [phone] Laboratory test 03/01/2019 [facility] Partial 52.7 High 26.0-36.3 finding [phone] Thrombo Time seconds PTT D Dimer Quantitative 274 ng/mL High Less Than 230 11 Lactic Acid 1.0 mmol/L Normal 0.5-2.0 12 Comp Metabolic Panel 03/01/2019 [facility] Sodium 138 mmol/L Normal 135-145 [phone] Potassium 4.1 mmol/L Normal 3.5-5.0 Chloride 106 [...] Egfr Non- 50.2 >60 Egfr 60.7 >60 13 Laboratory test 03/01/2019 [facility] C Reactive 2.76 mg/L Normal < 8.01 finding [phone] Protein Troponin-I (TnI) 0.01 ng/mL <0.04 14 B-Type Natriuretic Peptide BNP 22 pg/mL <=100 Blood Culture SEE RESULT BELOW 15 1 Because ethnic data is not always [...] 5 Kidney failure <15 (or dialysis) 2 Because ethnic data is not always [...] 5 Kidney failure <15 (or dialysis) 3 d-dimer has come down, dependign ont he lab, normal is below 250- 500. 4 Results suggest response to immunization or prior exposure to the virus. REFERENCE VALUE Vaccinated: Positive (>=1.1 AI) Unvaccinated: Negative (<=0.8 AI) 5 Test Performed by: [facility] [address] [place] [address] 6 Results suggest response to immunization or prior exposure to the virus. REFERENCE VALUE Vaccinated: Positive (>=1.1 AI) Unvaccinated: Negative (<=0.8 AI) 7 Test Performed by: [facility] [address] [place] [address] 8 Please note: The following may produce a false positive D Dimer test: - Rheumatoid factor greater than 60 IU/ml - Plasma hemoglobin greater than 0.05 gm/dl - Bilirubin greater than 50 mg/dl - Lipids greater than 1000 mg/dl - FDP greater than 20 ug/ml 9 Troponin-I testing on Plasma Separator Tubes (PST) has a known false positive rate of 0.20-0.40%. All positive troponins reflex immediately to secondary confirmatory testing. Using the [employer] 800 Access Immunoassay systems, the 99th percentile upper reference limit was demonstrated to be < 0.03 ng/mL. 10 Standard intensity warfarin therapeutic range: 2.0-3.0 High intensity warfarin therapeutic range: 2.5-3.5 11 Please note: The following may produce a false positive D Dimer test: - Rheumatoid factor greater than 60 IU/ml - Plasma hemoglobin greater than 0.05 gm/dl - Bilirubin greater than 50 mg/dl - Lipids greater than 1000 mg/dl - FDP greater than 20 ug/ml 12 [facility] Severe Sepsis and Septic Shock Management Bundle Measure requires all lactic acids initially measuring >2.0 mmol/L be repeated. 13 Because ethnic data is not always [...] 5 Kidney failure <15 (or dialysis) 14 Troponin-I testing on Plasma Separator Tubes (PST) has a known false positive rate of 0.20-0.40%. All positive troponins reflex immediately to secondary confirmatory testing. Using the [employer] DxI 800 Access Immunoassay systems, the 99th percentile upper reference limit was demonstrated to be < 0.03 ng/mL. 15 SEE RESULT BELOW Name: LEYLA CARRANZA : [address]: Johnny Kang MD Acct: [id number] Unit: [id number] AGE: 84 Location: ED Re03/01/19 SEX: M Status: REG ER SPEC: [id number] LAVERN: 03/01/[address] [facility] [address]: Johnny Kang MD REQ: [id number] RECD: 03/01/19 STATUS: SHAHEED SOLANO DR: Elliot Rivera DO _ SOURCE: BLOOD,VENO SPDESC: ORDERED: Blood Cult COMMENTS: L AC Procedure Result Reported Site Aerobic Culture Bottle Final 03/06/19- 1556 ML No Growth Day 5 Anaerobic Culture Bottle Final 03/06/191556 ML No Growth Day 5 * ML - Main Lab . END OF REPORT DEPARTMENT OF PATHOLOGY, [address] [place] [id number] Jeronimo Santos M.D. Director [facility] # [id number] Procedures Date Code Description Status 04/15/2019 04062 X-Ray Hand-Two Views Completed 03/03/2019 37691 Oximetry, Multiple Determinations (Eg, During Exercise) Completed 09/14/2006 78993140 Colonoscopy Completed Medical Devices Description No Information Available Encounters Type Date Location Provider Dx Diagnosis Office Visit 08/29/2019 Main Office Elliot Rivera, R60.9 Edema, unspecified 4:30p D.O. K40.30 Unil inguinal hernia, w obst, w/o gangr, not spcf as recur I10 Essential (primary) hypertension I73.9 Peripheral vascular disease, unspecified R01.1 Cardiac murmur, unspecified E03.9 Hypothyroidism, unspecified L40.0 Psoriasis vulgaris R06.02 Shortness of breath Office Visit 05/15/2019 1:15p Main Office Elliot [...] Hypothyroidism, unspecified L40.0 Psoriasis vulgaris Z79.899 Other half-way (current) drug therapy Office Visit 03/03/2019 10:20a Main Office Marga Dunaway, R06.02 Shortness of P.A. breath R07.89 Other chest pain I10 Essential (primary) hypertension M25.541 Pain in joints of right hand Z11.59 Encounter for screening for other viral diseases Assessments Date Code Description Provider 08/29/2019 R60.9 Edema, unspecified Elliot Rivera D.O. 08/29/2019 K40.30 Unilateral inguinal hernia, with Elliot Rivera D.O. obstruction, without gangrene, not specified as recurrent 08/29/2019 I10 Essential (primary) hypertension Elliot Rivera D.O. 08/29/2019 I73.9 Peripheral vascular disease, unspecified Elliot Rivera D.O. 08/29/2019 R01.1 Cardiac murmur, unspecified Elliot Rivera D.O. 08/29/2019 E03.9 Hypothyroidism, unspecified Elliot Rivera D.O. 08/29/2019 L40.0 Psoriasis vulgaris Elliot Rivera D.O. 08/29/2019 R06.02 Shortness of breath Elliot Rivera D.ORashmi 08/15/2019 Z23 Encounter for immunization Nurse's Schedule 08/15/2019 Z41.8 Encounter for other procedures for purposes Nurse's Schedule other than remedying health state 07/22/2019 Z00.01 Encounter for general adult medical [...] encounter 05/15/2019 K40.30 Unilateral inguinal hernia, with SopElliot perez D.O. obstruction, without gangrene, not specified as recurrent 05/15/2019 I10 Essential (primary) hypertension Elliot Rivera D.O. 05/15/2019 I73.9 Peripheral vascular disease, unspecified ChristianRashmi perezon, D.O. 05/15/2019 R01.1 Cardiac murmur, unspecified Elliot Rivera D.O. 05/15/2019 E03.9 Hypothyroidism, unspecified SopcarmenkElliot D.O. 05/15/2019 L40.0 Psoriasis vulgaris Elliot Rivera, D.O. 05/15/2019 R60.9 Edema, unspecified SopElliot perez, D.O. 05/13/2019 K40.30 Unilateral inguinal hernia, with Marga [place], P.A. obstruction, without gangrene, not specified as recurrent 05/13/2019 I10 Essential (primary) hypertension Marga Dunaway, P.A. 05/13/2019 I73.9 Peripheral vascular disease, unspecified Marga [place], P.A. 04/15/2019 M79.641 Pain in right hand ChristianchakElliot D.O. 04/15/2019 I10 Essential (primary) hypertension Elliot Rivera D.O. 04/15/2019 R01.1 Cardiac murmur, unspecified ChristianElliot perez D.O. 04/15/2019 E03.9 Hypothyroidism, unspecified Elliot Rivera, D.O. 04/15/2019 L40.0 Psoriasis vulgaris Elliot Rivera, D.O. 04/15/2019 Z79.899 Other half-way (current) drug therapy Elliot Rivera D.O. 03/03/2019 R06.02 Shortness of breath Marga Dunaway, P.A. 03/03/2019 R07.89 Other chest pain Marga Dunaway, P.A. 03/03/2019 I10 Essential (primary) hypertension Marga [place], P.A. 03/03/2019 M25.541 Pain in joints of right hand Marga Dunaway, P.A. 03/03/2019 Z11.59 Encounter for screening for other viral Tristian Marks diseases Plan of Treatment Future Appointment(s):09/05/2019 2:30 pm - Elliot Rivera D.O. at Main Sutimm5709/03/2019 1:30 pm - Nurse's Schedule at Main [place]3907/23/2020 3:30 pm - Elliot Rivera D.O. at Main Fvxguv9008/29/2019 - Elliot Rivera D.O.R60.9 Edema, unspecifiedFollow up:[place] for EKG w/ premedication by house staff 1 week edema f/uK40.30 Unilateral inguinal hernia, with obstruction, without gangrene, not specified as [id number] Essential (primary) hypertensionNew Medication: Clonazepam 0.5 mg - take 1 tablet by mouth 30 min prior to EKGI73.9 Peripheral vascular disease, dvuyugosilyI16.1 Cardiac murmur, unspecifiedNew Orders:EKG W/ Reading, Scheduled: 08/29/19E03.9 Hypothyroidism, rugnmszryhyS94.0 Psoriasis wgwmkbllP05.02 Shortness of breath Functional Status Description No Information Available Mental Status Description No Information Available Referrals Description No Information Available
--- OUTSIDE RECORDS SUMMARY | 2019-09-01 10:07 | XMS REPORT | Continuity of Care Document ---
:1935 External Reference #:[id number] Author Name Tristian Marks (transmitted by agent of provider Elliot Rivera) Address [address] [place] [address] Care Team Providers Name Role Phone Ben Thompson MD - Care Team Information Senior Mechanical Project Engineer [phone] Otolaryngology Miguelito Mejia MD - Internal Care Team Information Senior Mechanical Project Engineer [phone] [facility] - Surgery Care Team Information Senior Mechanical Project Engineer [phone] Problems Active Problems Provider Date Hypothyroidism Max [...] Vitamin D3 Take One Tablet By 30tabs [facility], 07/07/2019 5000Unit Mouth Every Day Elliot, D.O. Tablet (Diet Supplement) Levothyroxine Sodium Take 1 Tablet By 30tabs E03.9 [facility], 05/30/2019 Mouth Every Day Elliot, D.O. 50mcg Tablets (Hypothyroidism) Clonazepam 1 po every morning Unknown 05/12/2019 0.25mg before breakfast Tablets Dispers for anxiety Clonazepam 1 po at bedtime Unknown 05/12/2019 0.5mg for anxiety Tablets Dispers Allergy Take 1 Tablet By 90tabs [facility], 04/24/2019 10mg Tablets Mouth Every Day Elliot, D.O. (For Allergies) Claritin take one tablet by 90tabs [facility], 04/24/2019 10mg Tablets mouth once daily Elliot, D.O. as needed for allergy symptoms Atorvastatin Calcium Take 1 Tablet By 90tabs E78.4 [facility], 04/10/2019 Mouth Every Day Elliot, D.O. 80mg Tablets (1700=5PM) Colace take 2 capsules by 180caps K59.01 [facility], 03/25/2019 100mg Capsules mouth twice a day Elliot, D.O. (stool softening) Ear Flushing do not flush ears [facility], 03/21/2019 until ear drum has Elliot, D.O. been visualized without defect. Saline Mist [place] Once In Each 45units [facility], 12/19/2018 0.65% Nostril Daily (For Elliot, D.O. Solution Dryness) Tarsum Professional 2 Capfuls [facility], 11/27/2018 2% Time Every Day Elliot, D.O. Shampoo (Tar Bath) For Washing Body Finasteride Take 1 Tablet By 30tabs [facility], 10/21/2018 5mg Tablets Mouth Every Day Elliot, D.O. Metoprolol Tartrate take one tablet by 180tabs I10 [facility], 09/12/2018 mouth twice a day Elliot, D.O. 25mg Tablets Clonazepam take 1/2 tablet by 5tabs I10 [facility], 06/21/2018 0.5mg mouth 30 min prior Elliot, D.O. Tablets to cystoscopy/tovar replacement/lab draw for anxiety Systane Ultra 1 drop both eyes 75units [facility], 05/15/2018 Preservative Free as needed every 4 Elliot, D.O. hours for dry eyes 0.4-0.3% Solution as needed Tamsulosin HCL 1 by mouth every 90caps [facility], 04/18/2018 0.4mg day Elliot, D.O. Capsules Lactulose Give 2 Tablespoon [facility], 04/18/2018 Encephalopathy (30cc) By Mouth Elliot, D.O. Every Day 10GM/15ML Solution (Constipation) Hold For >3 BM Per Day Or Diarrhea Chlorhexidine Swab 1 Teaspoon [facility], 04/18/2018 Gluconate Gums Twice Daily Elliot, D.O. 0.12% For Oral Care Solution Miralax 1 Capful [facility], 03/21/2018 Powder 527GM (17GM=20cc) 8 Oz Elliot, D.O. Of Fluid By Mouth Every Day Hold For > 3 Stools/Day/Diarrhe a (Constipation) Zincon 1% Use 3 Times Weekly 118units [facility], 06/26/2017 Shampoo Elliot, D.O. Bacitracin (External) apply small amount Unknown 05/15/2017 to affected area 500Unit/GM Ointment twice daily as needed for minor skin abrasions/open sores Acetaminophen 2 by mouth every 8 120tabs M25.541 [facility], 05/15/2017 325mg hours, as needed, Yohannes Tavera Tablets ,may receive daily Calcitriol Apply To Legs 100units [facility], 04/18/2017 3mcg/GM Twice Daily After Elliot, D.O. Ointment Bath & Before Bed. (Psoriasis) Cerave Apply To Body 453units [facility], 02/05/2017 Cream Twice Daily (Dry Elliot, D.O. Skin) Am=After Bath/ PM=Before Bed Hydrocortisone apply to facial 45gm L40.0 [facility], 06/15/2016 Valerate lesions twice a Elliot, D.O. 0.2% Cream day as needed dryness, itching or redness Tylenol Supp Insert 1 rectally Unknown 06/15/2016 every 4 hrs prn temp >101 Ducodyl 10mg on day 2 if Unknown 06/15/[address] kal TURNER Guaifenesin 2 tsp po every 4 Unknown 06/15/2016 100mg/5ML hrs prn Liquid [place] Saline Nasal Apply Inside 14.1units [facility], 06/13/2016 Gel Nostrils Twice Elliot, D.O. Daily (Dryness) Fleet Enema Insert 1 Rectally 665units [facility], 04/20/2016 On Day 3 Of No Elliot, D.O. 7-19GM/118ML Enema Bowel Movement By 4PM as Needed Tab-A-Boo/Iron take 1 tablet by 90tabs [facility], 03/15/2016 mouth every day Elliot, D.O. Tablets (diet supplement) Ibuprofen taking 2 tabs po 100tabs Max A. 09/30/2015 200mg Tablets every 4 h prn Yohannes Whitlock muscle aches or discomfort Antacid Anti-Gas Unknown 09/30/2015 099-547-32jn/5ML Suspension Vitamin A & D ointment prn Unknown 09/30/2015 Oint Desitin prn Unknown 09/30/2015 Ointment Vitamin D-3 1 tab by mouth 90tabs [facility], 06/28/2015 5000Unit every day or 7 Elliot, D.O. Tablets tabs once a week Humira subq inj every Unknown 03/11/2015 40mg/0.8ML PSKT other week as directed Triamcinolone apply twice daily 454units [facility], 08/13/2014 Acetonide for 2 weeks Elliot, D.O. 0.1% Ointment alternating with diprolene ,not to face or folds (refer to rx#[id number]) Peridex 0.12% Oral Swab 1 Teaspoon On 473units [facility], 06/04/2014 Rinse So Gums Twice Daily Elliot D.O. For Oral Care Nasal Moist Gel apply to inside of [facility], 02/02/2014 Gel nose 2 x a day # Elliot D.O. 90 day supply. Diprolene Apply To Affected 45units L40.0 [facility], 02/20/2012 0.05% Areas Twice Daily Elliot, D.O. Ointment Times 2 Weeks Alternating With Triamcinolone, Not To Face Or Folds Vectical Apply To Legs 100units L40.0 [facility], 02/20/2012 3mcg/GM Twice Daily After Elliot D.O. Ointment Bath & Before Bed. (Psoriasis) Diapers Adult :Adult Medium 100units Max Bragg 06/27/2011 Pull-Up Due To Yohannes Whitlock Leakage Topiramate take 1 tab twice a 60tabs [facility], 06/05/2011 25mg Tablets day after meals Elliot D.O. Klonopin 1 at bed time 20tabs [facility], 03/05/2006 0.5mg Tablets Yohannes Tavera Tylenol give 2 tablets po 60tabs Max Bragg 11/28/2005 325mg Tablets [id number] prn for Yohannes Whitlock pain or fever >101.0f Aspirin Low Dose take 1 tablet [facility], 11/28/2005 81mg mouth every other Elliot, D.O. Chewtabs day (prevent heart disease) Zincon Dandruff 3 x a week [facility], 1% Elliot, D.O. Shampoo Immunizations CPT Code Status Date Vaccine Lot # [id number] Given 06/21/2018 Influenza Vaccine Split Virus Preservative Free Im [id number] Use 57198 Given 06/20/2017 Influenza Virus Vaccine, Quadrivalent, Split, [id number] Preservative Free 04685 Given 06/16/2016 Influenza Virus Vaccine, Quadrivalent, Split, [id number] Preservative Free 42156 Given 06/14/2015 Zostavax [id number] 19676 Given 06/14/2015 Influenza Virus Vaccine, Quadrivalent, Split, [id number] Preservative Free 21605 Given 06/14/2015 Prevnar 13 [id number] 06925 Given 06/11/2014 Adacel or Boostrix, TDaP [id number] 68940 Given 06/11/2014 Influenza Vaccine Split Virus Preservative Free Im [id number] Use 10092 Given 07/28/2013 Flu, Split Virus 3Yrs [id number] 45119 Given 07/12/2012 Flu, Split Virus 3Yrs [id number] 82335 Given 08/22/2011 Flu, Split Virus 3Yrs [id number] 98274 Given 08/04/2010 Flu, Split Virus 3Yrs [id number] 24002 Given 09/22/2009 Flu, Split Virus 3Yrs [id number] 68506 Given 08/27/2008 Flu, Split Virus 3Yrs [id number] 57365 Given 08/29/2007 Flu, Split Virus 3Yrs [id number] 82192 Given 08/27/2006 Flu, Split Virus 3Yrs [id number] 03092 Given 03/06/2006 Pneumococcal Immunization [id number] 23269 Given 08/12/2004 Flu, Split Virus 3Yrs 72833 Given 02/10/2004 Td Immunization 36961 Given 08/01/2003 Flu, Split Virus 3Yrs Vital Signs Date Vital Result Comment 07/22/2019 9:15am BP Systolic 142 mmHg 07/14/19 by agency BP Diastolic 68 mmHg 07/14/19 by agency Weight 170.00 lb 05/2019 wt per staff 05/13/2019 11:25am BP Systolic 164 mmHg BP Diastolic 82 mmHg Results Test Date Facility Test Result H/L Range Note CBC Auto Diff 05/13/2019 [facility] White Blood 6.9 10^3/uL Normal 3.5-10.8 [phone] Count Red Blood Count 5.09 10^6/uL Normal [...] Cells % 0.1 Comp Metabolic Panel 05/13/2019 [facility] Sodium 136 mmol/L Normal 135-145 [phone] Potassium 4.2 mmol/L Normal 3.5-5.0 Chloride 105 [...] 68.8 >60 1 CBC Auto Diff 03/03/2019 [facility] White Blood 7.2 10^3/uL Normal 3.5-10.8 2 [phone] Count Red Blood Count 5.00 10^6/uL Normal [...] Blood Cells % 0.2 Laboratory test 03/03/2019 [facility] D Dimer 248 ng/mL High Less Than 3 finding [phone] Quantitative 230 Rubella Screen Immune Immune Rubeola Measles Igg 03/03/2019 [facility] Rubeola (Measles) IgG Positive 4 AB [phone] Antibody Rubeola IgG Antibody Index >8.0 5 Mumps Igg 03/03/2019 [facility] Mumps Virus IgG Antibody Positive 6 [phone] Mumps IgG Antibody Index 6.6 7 Laboratory test 03/01/2019 [facility] Troponin-I 0.02 ng/mL <0.04 8 finding [phone] (TnI) CBC Auto Diff 03/01/2019 [facility] White Blood 8.5 Normal 3.5-10.8 [phone] Count 10^3/uL Red Blood Count 5.06 10^6/uL [...] Red Blood Cells % 0.0 Inr/Protime 03/01/2019 [facility] Inr 1.04 Normal 0.82-1.09 9 [phone] Laboratory test 03/01/2019 [facility] Partial 52.7 seconds High 26.0- 36.3 finding [phone] Thrombo Time PTT D Dimer Quantitative 274 ng/mL High Less Than 230 10 Lactic Acid 1.0 mmol/L Normal 0.5-2.0 11 Comp Metabolic Panel 03/01/2019 [facility] Sodium 138 mmol/L Normal 135-145 [phone] Potassium 4.1 mmol/L Normal 3.5-5.0 Chloride 106 [...] Egfr 60.7 >60 12 Laboratory test 03/01/2019 [facility] C Reactive 2.76 mg/L Normal < 8.01 finding [phone] Protein Troponin-I (TnI) 0.01 ng/mL <0.04 13 [...] Negative (<=0.8 AI) 5 Test Performed by: [facility] [address] [place] [address] 6 Results suggest response to immunization or prior exposure to the virus. REFERENCE VALUE Vaccinated: Positive (>=1.1 AI) Unvaccinated: Negative (<=0.8 AI) 7 Test Performed by: [facility] [address] [place] [address] 8 Troponin-I testing on Plasma Separator Tubes (PST) has a known false positive rate of 0.20-0.40%. All positive troponins reflex immediately to secondary confirmatory testing. Using the [employer] 800 Access Immunoassay systems, the 99th percentile [...] - FDP greater than 20 ug/ml 11 [facility] Severe Sepsis and Septic Shock Management [...] immediately to secondary confirmatory testing. Using the [employer] DxI 800 Access Immunoassay systems, the 99th percentile upper reference limit was demonstrated to be < 0.03 ng/mL. 14 SEE RESULT BELOW Name: LEYLA CARRANZA : [address]: Johnny Kang MD Acct: [id number] Unit: [id number] AGE: 84 Location: ED Re03/01/19 SEX: M Status: REG ER SPEC: [id number] LAVERN: 03/01/19-[address] [facility] [address]: Johnny Kang MD REQ: [id number] RECD: 03/01/19 STATUS: SHAHEED LENTZ DR: Elliot Rivera DO _ SOURCE: BLOOD,VENO SPDESC: ORDERED: Blood Cult COMMENTS: L AC Procedure Result Reported Site Aerobic Culture Bottle Final 03/06/19- 1557 ML No Growth Day 5 Anaerobic Culture Bottle Final 03/06/19- 1557 ML No Growth Day 5 * ML - Main Lab . END OF REPORT DEPARTMENT OF PATHOLOGY, [address] [place] [address] Jeronimo Santos M.D. Director [facility] # [id number] Procedures Date Code Description Status 04/15/2019 34496 X-Ray Hand-Two Views Completed 03/03/2019 65440 Oximetry, Multiple Determinations (Eg, During Exercise) Completed 09/14/2006 04789642 Colonoscopy Completed Medical Devices Description No Information [...] Hypothyroidism, unspecified L40.0 Psoriasis vulgaris Z79.899 Other mcfp (current) drug therapy Office Visit 03/03/2019 10:20a [...] 05/13/2019 K40.30 Unilateral inguinal hernia, with Marga Rutledge, P.A. obstruction, without gangrene, not specified as recurrent 05/13/2019 I10 Essential (primary) hypertension Marga Dunaway, P.A. 05/13/2019 I73.9 Peripheral vascular disease, unspecified Marga Rutledge, P.A. 04/15/2019 M79.641 Pain in right hand ChristianchakElliot D.O. 04/15/2019 I10 Essential (primary) hypertension Elliot Rivera D.O. 04/15/2019 R01.1 Cardiac murmur, unspecified Elliot Rivera D.O. 04/15/2019 E03.9 Hypothyroidism, unspecified Elliot Rivera D.O. 04/15/2019 L40.0 Psoriasis vulgaris Elliot Rivera, D.O. 04/15/2019 Z79.899 Other mcfp (current) drug therapy Elliot Rivera D.O. 03/03/2019 [...] with obstruction, without gangrene, not specified as mgfmfenqeX97 Essential (primary) dnkggwvxedpvC47.9 Peripheral vascular disease, zchhaecrldxP67.1 Cardiac murmur, pnoonltzucsK68.9 Hypothyroidism, qxzginupkubE65.0 Psoriasis qkpvmyuxP54.81 History of qnttyapM90.30xA Fall on same level, unspecified, initial encounter Functional Status Description No Information Available Mental Status Description No Information Available Referrals Description No Information Available
[2019-09-01] MEDS ORDERED: LORazepam TAB(*) 1 MG PO ONE (10:30)
--- NOTE | 2019-09-01 10:45 | ED ---
Lower Extremity - HPI Summary HPI Summary: Pt is a 84 y/o M presenting to the ED with a chief complaint of LE edema. LEVEL 5 CAVEAT: Pts full hx and physical limited d/t hx . Pts caregiver noticed his bilateral legs were edematous over the past week or so, and he has also been short of breath. He recently had labwork done, and his PCPs office called today to tell him his D-Dimer was elevated and that he should come to the ED. No hx blood clots that the pts caregivers are aware of. - History of Current Complaint Chief Complaint: EDGeneral Stated Complaint: ABNORMAL LABS PER CAREGIVER Time Seen by Provider: 09/01/19 10:26 Hx Obtained From: Patient Mechanism Of Injury: Unknown Onset of Pain: Days Onset/Duration: Still Present Severity Initially: Mild Severity Currently: None Pain Intensity: 0 Pain Scale Used: 0-10 Numeric Timing: Constant, Lasting Days Location: Is Diffuse - bilateral LE Associated Signs And Symptoms: Positive: Swelling Aggravating Factor(s): Nothing Alleviating Factor(s): Nothing Able to Bear Weight: Yes - Allergies/Home Medications Allergies/Adverse Reactions: Allergies Allergy/AdvReac Type Severity Reaction Status Date / Time amoxicillin [From Augmentin] Allergy Unknown Verified 09/01/19 10:01 Reaction Details clavulanic acid Allergy Unknown Verified 09/01/19 10:01 [From Augmentin] Reaction Details PMH/Surg Hx/FS Hx/Imm Hx Endocrine/Hematology History: Reports: Hx Thyroid Disease - hypo Denies: Hx Diabetes Cardiovascular History: Reports: Hx Hypertension Respiratory History: Denies: Hx Asthma, Hx Chronic Obstructive Pulmonary Disease (COPD) GI History: Reports: Other GI Disorders - chronic constipation Denies: Hx Ulcer History: Reports: Other Problems/Disorders - Bilateral inguinal hernia Sensory History: Reports: Hx Cataracts - BILAT Denies: Hx Contacts or Glasses, Hx Hearing Aid Opthamlomology History: Reports: Hx Cataracts - BILAT Denies: Hx Contacts or Glasses Neurological History: Reports: Hx Developmental Delay, Other Neuro Impairments/ Disorders - [place] Palsy Psychiatric History: Reports: Hx Anxiety - excessive, 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 - Surgical History Hx Anesthesia Reactions: No - UNKNOWN - Immunization History Date of Tetanus Vaccine: utd Date of Influenza Vaccine: utd Infectious Disease History: Yes Infectious Disease History: 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 Denies: Hx Clostridium Difficile, Hx Hepatitis, Hx Human Immunodeficiency Virus (HIV), Hx of Known/Suspected MRSA, Hx Shingles, Hx Known/Suspected VRE, Hx Known/Suspected VRSA, History Other Infectious Disease, Traveled Outside the [place] in Last 30 Days - Family History Known Family History: Positive: Unknown - LEVEL 5 CAVEAT secondary to MR - Social History Alcohol Use: None Hx Substance Use: No Substance Use Type: Reports: None Hx Tobacco Use: No Smoking Status (MU): Never Smoked Tobacco Review of Systems - ROS Summary Review of Systems Summary: LEVEL 5 CAVEAT: Pts full hx and physical limited d/t hx MR. Positive: Shortness Of Breath Positive: Edema All Other Systems Reviewed And Are Negative: No Physical Exam - Summary Physical Exam Summary: Constitutional: Well-developed, Well-nourished, Alert. (-) Distressed Skin: Warm, Dry HENT: Normocephalic; Atraumatic Eyes: Conjunctiva normal Neck: Musculoskeletal ROM normal neck. (-) JVD, (-) Stridor, (-) Nuchal rigidity Cardio: Rhythm regular, rate normal, Heart sounds normal; Intact distal pulses; Radial pulses are 2+ and symmetric. (-) Murmur Pulmonary/Chest wall: Effort normal. (-) Respiratory distress, (-) Wheezes, (-) Rales Abd: Soft, (-) tenderness, (-) Distension, (-) Guarding, (-) Rebound Musculoskeletal: (-) Edema Lymph: (-) Cervical adenopathy Neuro: Alert, non-verbal at baseline Psych: Mood and affect calm and cooperative Triage Information Reviewed: Yes Vital Signs On Initial Exam: Initial Vitals Temp Pulse Resp BP Pulse Ox 97.8 F 64 16 0/0 95 09/01/19 09:59 09/01/19 09:59 09/01/19 09:59 09/01/19 09:59 09/01/19 09:59 Vital Signs Reviewed: Yes Procedures - Sedation Patient Received Moderate/Deep Sedation with Procedure: No Diagnostics - Vital Signs Vital Signs Temp Pulse Resp BP Pulse Ox 09/01/19 09:59 97.8 F 64 16 0/0 95 - Laboratory Lab Statement: Any lab studies that have been ordered have been reviewed, and results considered in the medical decision making process. - Radiology CXR Radiology Interpretation Completed By: Radiologist Summary of Radiographic Findings: Improved bibasilar aeration with no focal airspace opacification identified. ED physician has reviewed this report. - CT Chest/Thorax CTA CT Interpretation Completed By: Radiologist Summary of CT Findings: 1. EXTREMELY LIMITED EXAM DUE TO MOTION ARTIFACT. THERE APPEARS TO BE A PERIPHERAL INTRALUMINAL FILLING DEFECT IN A RIGHT LOWER LOBE BASILAR SEGMENTAL ARTERY SUGGESTIVE OF A CHRONIC OR LESS LIKELY AN ACUTE PULMONARY EMBOLISM. 2. DILATED AIR-FILLED ESOPHAGUS AND SMALL HIATAL HERNIA. ED physician has reviewed this report. - Ultrasound DVT US Ultrasound Interpretation Completed By: Radiologist Summary of Ultrasound Findings: LIMITED EVALUATION OF THE CALF VESSELS BILATERALLY. WITHIN THESE CONSTRAINTS, THERE IS NO EVIDENCE OF DEEP VENOUS THROMBOSIS. ED physician has reviewed this report. - EKG 1131 Cardiac Rate: NL - 87bpm EKG Rhythm: Sinus Rhythm ST Segment: Other Ectopy: None Summary of EKG Findings: An EKG at 1131 reveals normal sinus rhythm at 87bpm with minimal ST elevations in leads II, III, and aVF, as well as T-wave inversions in v4-v6. Consistent with EKG on 03/01/19. No STEMI. No acute changes. ED physician has reviewed and interpreted this EKG. Re-Evaluation - Re-Evaluation First Eval Change: Improved - US neg (limited), called Truman ([phone]) for consent Tamanna Bailey. Second Eval Re-Evaluation Time: 14:20 Comment: CT w possible RLL PE, will send home on xarelto. Not hypoxic (95%) or tachycardic. F/u w PCP. Lower Extremity Course/Dx - Course Course Of Treatment: 84 y/o male BIB caregivers for concern for elevated d dimer and leg swelling. - no leg swelling on exam, no e/o JAMEEL. Will proceed with bilateral dopplers LE, EKG and reassess. Given 1 mg ativan for comfort. Likely will need CTA chest to r/o PE. - Diagnoses Provider Diagnoses: Pulmonary embolism Discharge ED - Sign-Out/Discharge Documenting (check all that apply): Patient Departure - Discharge Plan Condition: Stable Disposition: HOME Prescriptions: Rivaroxaban TAB(*) [Xarelto 15 mg(*)] 15 mg PO BID 21 Days #42 tab Patient Education Materials: Pulmonary Embolism (ED) Referrals: Sopchak,Elliot, DO [Primary Care Provider] - Additional Instructions: You were seen in the emergency department for a high d-dimer. Your CT scan showed a possible blood clot in your lungs. Please take xarelto twice a day for 21 days, follow-up with her primary care doctor. If any studies were not completed at the time of discharge you will be called with the relevant results. Please follow up with your primary care doctor in next 2-3 days and return to emergency department for trouble breathing, chest pain, or concerning symptoms. It was a pleasure taking care of you today. - Billing Disposition and Condition Condition: STABLE Disposition: Home - Attestation Statements Document Initiated by Hernandez: Yes Documenting Scribe: Yadira Diehl Provider For Whom Hernandez is Documenting (Include Credential): Jesus Hidalgo MD. Scribe Attestation: I, Yadira Diehl, scribed for Jesus Hidalgo MD. on 09/01/19 at 1448. Scribe Documentation Reviewed: Yes Provider Attestation: The documentation as recorded by the scribe, Yadira Diehl accurately reflects the service I personally performed and the decisions made by me, Jesus Hidalgo MD. Status of Scribgurmeet Document: Viewed Consult Consult: 3919 - I spoke with Hakan of pharmacy about placing the pt on Xarelto without obtaining an INR. He said that he should be fine d/t his nml LFTs.
[2019-09-01] MEDS ORDERED: Midazolam* 1 MG/ML 2 ML VIAL (2 MG) IV SLOW PU ONE ×2 (12:38→13:25)
[2019-09-01] MEDS ORDERED: Iohexol 350* (CONTRAST) 500 ML MDV IV ONE (12:44)
[2019-09-01 15:07] VITALS: BP 169/72
== END 2019-09-01 15:05 | disposition home or self-care (01) ==
LOC: ED 09:58
DX: I26.99 Other pulmonary embolism without acute cor pulmonale (principal); R60.9 Edema, unspecified; E03.9 Hypothyroidism, unspecified; I10 Essential (primary) hypertension; Z86.711 Personal history of pulmonary embolism; R06.02 Shortness of breath; F41.9 Anxiety disorder, unspecified; R94.31 Abnormal electrocardiogram [ECG] [EKG]; Z88.0 Allergy status to penicillin
CPT/HCPCS: 71045; 71275; 93005; 93970; 96374; 96375; 99282; A9270-GY; J2250; Q9967

== ENCOUNTER 2019-09-03 11:22 | Emergency (ER) | payer MEDICARE, MEDICAID ==
--- NOTE | 2019-09-03 12:49 | ED ---
GI/ HPI - HPI Summary HPI Summary: THE HPI IS LIMITED DUE TO LEVEL 5 CAVEAT - MENTAL ILLNESS. 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 The patients female caregiver reports his urine was dark red and that he had some blood in his diaper, before he went to urinate. He is currently on blood thinners for PE. Patient at neurologic baseline (cooperative, non verbal). 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 Hx From Patient Unobtainable Due To: Other - mental illness Onset/Duration: Started Hours Ago, Still Present Timing: Intermittent - when patient urinates and occassionally while he is not, Lasting Hours Pain Intensity: 0 Associated Signs and Symptoms: Positive: Hematuria - dark red urine Aggravating Factor(s): Nothing Alleviating Factor(s): Nothing - Additional Pertinent History Primary Care Physician: JAMES - Allergy/Home Medications Allergies/Adverse Reactions: Allergies Allergy/AdvReac Type Severity Reaction Status Date / Time amoxicillin [From Augmentin] Allergy Unknown Verified 09/01/19 10:01 Reaction Details clavulanic acid Allergy Unknown Verified 09/01/19 10:01 [From Augmentin] Reaction Details PMH/Surg Hx/FS Hx/Imm Hx Endocrine/Hematology History: Reports: Hx Thyroid Disease - hypo Denies: Hx Diabetes Cardiovascular History: Reports: Hx Hypertension Respiratory History: Denies: Hx Asthma, Hx Chronic Obstructive Pulmonary Disease (COPD) GI History: Reports: Other GI Disorders - chronic constipation Denies: Hx Ulcer History: Reports: Other Problems/Disorders - Bilateral inguinal hernia Sensory History: Reports: Hx Cataracts - BILAT Denies: Hx Contacts or Glasses, Hx Hearing Aid Opthamlomology History: Reports: Hx Cataracts - BILAT Denies: Hx Contacts or Glasses Neurological History: Reports: Hx Developmental Delay, Other Neuro Impairments/ Disorders - Flushing Palsy Psychiatric History: Reports: Hx Anxiety - excessive, 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 - Surgical History Hx Anesthesia Reactions: No - UNKNOWN - Immunization History Date of Tetanus Vaccine: utd Date of Influenza Vaccine: utd Infectious Disease History: No Infectious Disease History: 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 Denies: Hx Clostridium Difficile, Hx Hepatitis, Hx Human Immunodeficiency Virus (HIV), Hx of Known/Suspected MRSA, Hx Shingles, Hx Known/Suspected VRE, Hx Known/Suspected VRSA, History Other Infectious Disease, Traveled Outside the [place] in Last 30 Days - Family History Known Family History: Positive: Unknown - LEVEL 5 CAVEAT secondary to MR - Social History Alcohol Use: None Hx Substance Use: No Substance Use Type: Reports: None Hx Tobacco Use: No Smoking Status (MU): Never Smoked Tobacco Review of Systems - ROS Summary Review of Systems Summary: LEVEL 5 CAVEAT-MENTAL ILLNESS Positive: other - hematuria All Other Systems Reviewed And Are Negative: No Physical Exam - Summary Physical Exam Summary: Constitutional: Well-developed, Well-nourished, Alert. (-) Distressed Skin: Warm, Dry HENT: Normocephalic; Atraumatic Eyes: Conjunctiva normal Neck: Musculoskeletal ROM normal neck. (-) JVD, (-) Stridor, (-) Nuchal rigidity Cardio: Rhythm regular, rate normal, Heart sounds normal; Intact distal pulses; Radial pulses are 2+ and symmetric. (-) Murmur Pulmonary/Chest wall: Effort normal. (-) Respiratory distress, (-) Wheezes, (-) Rales Abd: Soft, (-) tenderness, (-) Distension, (-) Guarding, (-) Rebound Genitourinary: no penile lesions, no blood at the meatus, right inguinal hernia noted Musculoskeletal: (-) Edema Lymph: (-) Cervical adenopathy Neuro: Alert at baseline Psychological: cooperative Triage Information Reviewed: Yes Vital Signs On Initial Exam: Initial Vitals Temp Pulse Resp BP Pulse Ox 97.0 F 59 18 160/95 97 09/03/19 11:23 09/03/19 11:23 09/03/19 11:23 09/03/19 11:23 09/03/19 11:23 Vital Signs Reviewed: Yes Procedures - Sedation Patient Received Moderate/Deep Sedation with Procedure: No Diagnostics - Vital Signs Vital Signs Temp Pulse Resp BP Pulse Ox 09/03/19 11:23 97.0 F 59 18 160/95 97 - Laboratory Result Diagrams: 09/03/19 12:38 09/03/19 12:38 Lab Statement: Any lab studies that have been ordered have been reviewed, and results considered in the medical decision making process. GIGU Course/Dx - Course Course Of Treatment: 84 y/o male recently placed on xarelto p/w hematuria. - Likely 2/2 antiocoag vs UTI, urine clear w scant blood clots reported, Hb stable. Follow up w PCP for further workup if having persistent hematuria. - sent home on bactrim for UTI given UA w 2+ LE - Diagnoses Provider Diagnoses: UTI (urinary tract infection), Hematuria Discharge ED - Sign-Out/Discharge Documenting (check all that apply): Patient Departure - Discharge Plan Condition: Stable Disposition: HOME Prescriptions: Sulfamethox/Trimethoprim DS* [Bactrim DS 800/160 TAB*] 1 tab PO BID 7 Days #14 tab Patient Education Materials: Hematuria (ED) Referrals: Elliot Rivera DO [Primary Care Provider] - Additional Instructions: You were seen in the emergency department for blood in the urine. Your labs showed a stable hemoglobin, your urine showed microscopic hematuria. We are treating you for a UTI, please take bactrim twice a day. Please follow up with her primary care doctor regarding this. It could be secondary to your medication. If any studies were not completed at the time of discharge you will be called with the relevant results. Please follow up with your primary care doctor in next 2-3 days and return to emergency department for worsening bleeding, pain, or concerning symptoms. It was a pleasure taking care of you today. - Billing Disposition and Condition Condition: STABLE Disposition: Home - Attestation Statements Scribe Documentation Reviewed: Yes
[2019-09-03 13:02] LABS: ABS Lymphocytes 2.2 10^3/ul (1.0-4.8); ABS Monocytes 0.9 10^3/ul (0-0.8); ABS Neutrophils 4.6 10^3/ul (1.5-7.7); Hematocrit 43 % (42-52); Hemoglobin 15.2 g/dL (14.0-18.0); Lymphocyte % 28.2 %; Mean Corpuscular HGB Conc 35 g/dL (31-36); Mean Corpuscular Hemoglobin 31 pg (27-31); Mean Corpuscular Volume 88 fL (80-94); Mean Platelet Volume 7.7 fL (7.4-10.4); Platelet Count 315 10^3/uL (150-450); Red Blood Count 4.94 10^6 /uL (4.18-5.48); Red Cell Distribution Width 14 % (10-15); White Blood Count 7.7 10^3/uL (3.5-10.8)
[2019-09-03 13:07] LABS: INR 1.55 (0.82-1.09)
[2019-09-03 13:13] LABS: Urine Appearance Cloudy; Urine Bilirubin Negative (Negative); Urine Blood 2+ (Negative); Urine Color Yellow; Urine Glucose Negative (Negative); Urine Ketones Negative (Negative); Urine Nitrite Negative (Negative); Urine Protein Negative (Negative); Urine Specific Gravity 1.014 (1.010-1.030); Urine Urobilinogen Negative (Negative)
[2019-09-03 13:15] LABS: Urine Bacteria Absent (Absent); Urine Red Blood Cell 3+(>10/hpf) (Absent); Urine White Blood Cell 2+(11-20/hpf) (Absent)
[2019-09-03 13:17] LABS: BUN/Creatinine Ratio 25.2 (8-20); Calcium 9.5 mg/dL (8.6-10.3); EGFR African American 73.7 (>60); EGFR Non-African American 60.9 (>60); Potassium 4.4 mmol/L (3.5-5.0)
[2019-09-03 14:35] VITALS: BP 154/72
== END 2019-09-03 14:00 | disposition home or self-care (01) ==
LOC: ED 11:22
DX: N39.0 Urinary tract infection, site not specified (principal); R31.9 Hematuria, unspecified; E03.9 Hypothyroidism, unspecified; I10 Essential (primary) hypertension; F41.9 Anxiety disorder, unspecified; R62.50 Unspecified lack of expected normal physiological development in childhood; Z88.0 Allergy status to penicillin; Z88.1 Allergy status to other antibiotic agents; Z86.711 Personal history of pulmonary embolism; Z79.01 Long term (current) use of anticoagulants
CPT/HCPCS: 36415; 80048; 81003; 81015; 85025; 85610; 87086; 99282

== ENCOUNTER 2019-09-19 18:19 | Emergency (ER) | payer MEDICARE, MEDICAID ==
--- OUTSIDE RECORDS SUMMARY | 2019-09-19 18:51 | XMS REPORT | Continuity of Care Document ---
:1935 External Reference #:[id number] Author Name Tristian Marks Address [address] [place] [address] Care Team Providers Name Role Phone Ben Thompson MD - Care Team Information Tax Record Clerk [phone] Otolaryngology Miguelito Mejia MD - Internal Care Team Information Tax Record Clerk [phone] [facility] - Surgery Care Team Information Tax Record Clerk [phone] Problems Active Problems Provider Date Hypothyroidism Max [...] Any Kind Denies Use Smoking Status Reviewed: 09/05/19 Tobacco Of Any Kind Denies Use ETOH Use Denies alcohol use Tobacco Use Start: Unknown Non Smoker / No Tobacco Exercise Type/Frequency Exercises sporadically Allergies, Adverse Reactions, Alerts Active Allergies Reaction Severity Comments Date Augmentin REACTION UNKNOWN WAS ON FILE ON ADM TO 03/02/[address] Medications Active Medications SIG Qnty Indications Ordering Provider Date Xarelto 1 by mouth 90tabs R60.9 Elliot Rivera, 09/05/2019 20mg Tablets every day after D.O. 15mg tabs done after 21 days. I26.99 Clonazepam take 1 tablet by 1tabs I10 Elliot Rivera, 08/29/2019 0.5mg Tablets mouth 30 min prior D.O. to EKG Miralax 1.5 capfuls 510gm K59.03 Elliot Rivera, 07/23/2019 3350NF Powder (25.5gm=30cc) 12 oz D.O. of fluid by mouth every day hold for > 3 stools/day/diarrhea (constipation) Vitamin D3 Take One Tablet By 30tabs Elliot Rivera, 07/07/2019 5000Unit Mouth Every Day D.O. Tablet (Diet Supplement) Levothyroxine Sodium Take 1 Tablet By 30tabs E03.9 Elliot Rivera, 2018 Mouth Every Day D.O. 50mcg Tablets (Hypothyroidism) Clonazepam 1 po every morning Unknown 05/12/2019 0.25mg Tablets before breakfast Dispers for anxiety Clonazepam 1 po at bedtime for Unknown 05/12/2019 0.5mg Tablets anxiety Dispers Allergy Take 1 Tablet By 90tabs Elliot Rivera, 04/24/2019 10mg Tablets Mouth Every Day D.O. (For Allergies) Atorvastatin Calcium Take 1 Tablet By 90tabs E78.4 Elliot Rivera, 2018 80mg Mouth Every Day D.O. Tablets (1700=5PM) Colace take 2 capsules by 180caps K59.01 Elliot Rivera, 03/25/2019 100mg Capsules mouth twice a day D.O. (stool softening) Ear Flushing do not flush ears Elliot Rivera, 03/21/2019 until ear drum has D.O. been visualized without defect. Saline Mist [place] spray once in each 45units J31.0 Elliot Rivera, 2018 0.65% nostril daily (for D.O. Solution dryness) Tarsum Professional 2 Capfuls AT Bath 236units Elliot Rivera, 11/27/2018 2% Time Every Day (Tar D.O. Shampoo Bath) For Washing Body Finasteride Take 1 Tablet By 30tabs Elliot Rivera, 10/21/2018 5mg Tablets Mouth Every Day D.O. Metoprolol Tartrate (Take BP Prior To 60tabs I10 Elliot Rivera, 2017 25mg Giving This Med) 1 D.O. Tablets Tab By Mouth 2 Times A Day * Hold If BP Lower Than 90/60 Or Pulse Lower Than 60 Take Vitals First Systane Ultra 1 drop both eyes as 75units Elliot Rivera, 05/15/2018 Preservative Free needed every 4 D.O. hours for dry eyes 0.4-0.3% Solution as needed Tamsulosin HCL 1 by mouth every 90caps Elliot Rivera, 04/18/2018 0.4mg day D.O. Capsules Lactulose Give 2 Tablespoon 946units Elliot Rivera, 04/18/2018 Encephalopathy (30cc) By Mouth D.O. 10GM/15ML Every Day Solution (Constipation) Hold For >3 BM Per Day Or Diarrhea Chlorhexidine Swab 1 Teaspoon On 473units Elliot Rivera, 04/18/2018 Gluconate Gums Twice Daily D.O. 0.12% Solution For Oral Care Zincon 1% Use 3 Times Weekly 118units Elliot Rivera, 06/26/2017 Shampoo D.O. Bacitracin (External) apply small amount Unknown 05/15/2017 to affected area 500Unit/GM Ointment twice daily as needed for minor skin abrasions/open sores Acetaminophen 2 by mouth every 8 120tabs M25.541 Joycecobrittani, 05/15/2017 325mg hours, as needed, Yohannes Tavera Tablets ,may receive daily Calcitriol Apply To Legs Twice 100units Elliot Rivera, 04/18/2017 3mcg/GM Daily After Bath & D.O. Ointment Before Bed. (Psoriasis) Cerave Apply To Body Twice 453units Elliot Rivera, 02/05/2017 Cream Daily (Dry Skin) D.O. Am=After Bath/ PM=Before Bed Guaifenesin 2 tsp po every 4 Unknown 06/15/2016 100mg/5ML hrs prn Liquid Ducodyl 15mg on day 2 if no 30tabs K59.00 Elliot Rivera, 06/15/[address] oliva D.O. Tylenol Supp Insert 1 rectally Unknown 06/15/2016 every 4 hrs prn temp >101 Hydrocortisone apply to facial 45gm L40.0 Elliot Rivera, 06/15/2016 Valerate lesions twice a day D.O. 0.2% Cream as needed dryness, itching or redness [place] Saline Nasal Apply Inside 14.1units Elliot Rivera, 06/13/2016 Gel Nostrils Twice D.O. Daily (Dryness) Fleet Enema Insert 1 Rectally 665units Elliot Rivera, 04/20/2016 7-19GM/118ML On Day 3 Of No D.O. Enema Bowel Movement By 4PM as Needed Tab-A-Boo/Iron take 1 tablet by 90tabs LocoElliot thompson, 03/15/2016 Tablets mouth every day D.O. (diet supplement) Ibuprofen taking 2 tabs po 100tabs Max A. 09/30/2015 200mg Tablets every 4 h prn Yohannes Whitlock muscle aches or discomfort Antacid Anti-Gas Unknown 09/30/2015 [id number]/5ML Suspension Vitamin A & D ointment prn Unknown 09/30/2015 Oint Desitin prn Unknown 09/30/2015 Ointment Humira subq inj every Unknown 03/11/2015 40mg/0.8ML PSKT other week as directed Triamcinolone apply twice daily 454units Miguel Elliot, 08/13/2014 Acetonide for 2 weeks D.O. 0.1% Ointment alternating with diprolene ,not to face or folds (refer to rx#[id number]) Nasal Moist Gel apply to inside of Miguel Elliot, 02/02/2014 Gel nose 2 x a day # 90 D.O. day supply. Diprolene Apply To Affected 45units L40.0 Miguel Elliot, 02/20/2012 0.05% Ointment Areas Twice Daily D.O. Times 2 Weeks Alternating With Triamcinolone, Not To Face Or Folds Vectical Apply To Legs Twice 100units L40.0 Miguel Elliot, 02/20/2012 3mcg/GM Ointment Daily After Bath & D.O. Before Bed. (Psoriasis) Diapers Adult :Adult Medium 100units Max Bragg 06/27/2011 Pull-Up Due To Yohannes Whitlock Leakage Topiramate take 1 tab twice a 60tabs Elliot Rivera, 06/05/2011 25mg Tablets day after meals D.O. Tylenol give 2 tablets po 60tabs Max Bragg 11/28/2005 325mg Tablets s2krurm prn for Yohannes Whitlock pain or fever >101.0f Aspirin Low Dose take 1 tablet by 90units Elliot Rivera, 11/28/2005 81mg mouth every other D.O. Chewtabs day (prevent heart disease) Zincon Dandruff 3 x a week Miguel Elliot, 1% D.O. Shampoo History Medications Xarelto 1 by mouth 2x/day Unknown 09/01/2019 - 15mg for 21 days 09/05/2019 Tablets Claritin take one tablet by 90tabs Elliot Rivera, 04/24/2019 - 10mg mouth once daily as D.O. 09/04/2019 Tablets needed for allergy symptoms Medications Administered in Office Medication SIG Qnty Indications Ordering Provider Date Toradol 15MG. Marga Dunaway, P.A. 09/19/2019 Injection SC/Im Injections Tristian Marks 09/19/2019 Injection Immunizations CPT Code Status Date Vaccine Lot # [id number] Given 08/15/2019 Influenza Vaccine, Inactivated, Subunit, [id number] Adjuvanted, For [facility] [address] Given 06/21/2018 Influenza Vaccine Split Virus Preservative Free Im [id number] Use (hi-dose) 73339 Given 06/20/2017 Influenza Virus Vaccine, Quadrivalent, Split, [id number] Preservative Free 44443 Given 06/16/2016 Influenza Virus Vaccine, Quadrivalent, Split, [id number] Preservative Free 99882 Given 06/14/2015 Zostavax [id number] 46651 Given 06/14/2015 Influenza Virus Vaccine, Quadrivalent, Split, [id number] Preservative Free 96725 Given 06/14/2015 Prevnar 13 [id number] 55497 Given 06/11/2014 Adacel or Boostrix, TDaP [id number] 63676 Given 06/11/2014 Influenza Vaccine Split Virus Preservative Free Im [id number] Use (hi-dose) 66799 Given 07/28/2013 Flu, Split Virus 3Yrs [id number] 31959 Given 07/12/2012 Flu, Split Virus 3Yrs [id number] 56610 Given 08/22/2011 Flu, Split Virus 3Yrs [id number] 43652 Given 08/04/2010 Flu, Split Virus 3Yrs [id number] 42142 Given 09/22/2009 Flu, Split Virus 3Yrs [id number] 92971 Given 08/27/2008 Flu, Split Virus 3Yrs [id number] 62539 Given 08/29/2007 Flu, Split Virus 3Yrs [id number] 64984 Given 08/27/2006 Flu, Split Virus 3Yrs [id number] 78718 Given 03/06/2006 Pneumococcal Immunization [id number] 42671 Given 08/12/2004 Flu, Split Virus 3Yrs 58469 Given 02/10/2004 Td Immunization 94462 Given 08/01/2003 Flu, Split Virus 3Yrs Vital Signs Date Vital Result Comment 09/19/2019 4:34pm BP Systolic 150 mmHg BP Diastolic 72 mmHg 09/05/2019 2:50pm BP Systolic 150 mmHg per staff at [facility] BP Diastolic 78 mmHg per staff at [facility] Weight 169.00 lb w/shoes Results Test Acquired Date Facility Test Result H/L Range Note Inr/Protime 09/03/2019 [facility] Inr 1.55 High 0.82-1.09 8 [phone] Basic Metabolic 09/03/2019 [facility] Sodium 135 mmol/L Normal 135- 145 Panel [phone] Potassium 4.4 mmol/L Normal 3.5-5.0 Chloride 105 mmol/L Normal 101-111 Co2 Carbon Dioxide 26 mmol/L Normal 22-32 Anion Gap 4 mmol/L Normal 2-11 Glucose 88 mg/dL Normal 70-100 Blood Urea Nitrogen 29 mg/dL High 6-24 Creatinine 1.15 mg/dL Normal 0.67-1.17 BUN/Creatinine Ratio 25.2 High 8-20 Calcium 9.5 mg/dL Normal 8.6-10.3 Egfr Non- 60.9 >60 Egfr 73.7 >60 2 CBC Auto Diff 09/03/2019 [facility] White Blood 7.7 10^3/uL Normal 3.5-10.8 [phone] Count Red Blood Count 4.94 10^6/uL Normal 4.18-5.48 Hemoglobin 15.2 g/dL Normal 14.0-18.0 Hematocrit 43 % Normal 42-52 Mean Corpuscular Volume 88 fL Normal 80-94 Mean Corpuscular Hemoglobin 31 pg Normal 27-31 Mean Corpuscular HGB Conc 35 g/dL Normal 31-36 Red Cell Distribution Width 14 % Normal 10-15 Platelet Count 315 10^3/uL Normal 150-450 Mean Platelet Volume 7.7 fL Normal 7.4-10.4 Abs Neutrophils 4.6 10^3/uL Normal 1.5-7.7 Abs Lymphocytes 2.2 10^3/uL Normal 1.0-4.8 Abs Monocytes 0.9 10^3/uL High 0-0.8 Abs Eosinophils 0.0 10^3/uL Normal 0-0.6 Abs Basophils 0.0 10^3/uL Normal 0-0.2 Abs Nucleated RBC 0.0 10^3/uL Granulocyte % 60.2 % Lymphocyte % 28.2 % Monocyte % 11.6 % Eosinophil % 0.0 % Basophil % 0.0 % Nucleated Red Blood Cells % 0.0 Urinalysis Profile 09/03/2019 [facility] Urine Color Yellow [phone] Urine Appearance Cloudy Urine Specific [place] 1.014 Normal 1.010-1.030 Urine pH 6.0 Normal 5-9 Urine Urobilinogen Negative Negative Urine Ketones Negative Negative Urine Protein Negative Negative Urine Leukocytes Trace Abnormal Negative Urine Blood 2+ Abnormal Negative Urine Nitrite Negative Negative Urine Bilirubin Negative Negative Urine Glucose Negative Negative Urine White Blood Cell 2+(11-20/hpf) Abnormal Absent Urine Red Blood Cell 3+(>10/hpf) Abnormal Absent Urine Bacteria Absent Absent Urine Culture And 09/03/2019 [facility] Urine Culture SEE RESULT 3 Sensitivities [phone] BELOW CBC Auto Diff 08/30/2019 [facility] White Blood 7.7 10^3/uL Normal 3.5-10 [phone] Count .8 Red Blood Count 5.03 10^6/uL Normal 4.18-5.48 Hemoglobin 15.6 g/dL Normal 14.0-18.0 Hematocrit 44 % Normal 42-52 Mean Corpuscular Volume 88 fL Normal 80-94 Mean Corpuscular Hemoglobin 31 pg Normal 27-31 Mean Corpuscular HGB Conc 35 g/dL Normal 31-36 Red Cell Distribution Width 14 % Normal 10-15 Platelet Count 291 10^3/uL Normal 150-450 Mean Platelet Volume 7.6 fL Normal 7.4-10.4 Abs Neutrophils 4.9 10^3/uL Normal 1.5-7.7 Abs Lymphocytes 1.9 10^3/uL Normal 1.0-4.8 Abs Monocytes 0.9 10^3/uL High 0-0.8 Abs Eosinophils 0.0 10^3/uL Normal 0-0.6 Abs Basophils 0.0 10^3/uL Normal 0-0.2 Abs Nucleated RBC 0.0 10^3/uL Granulocyte % 63.2 % Lymphocyte % 24.4 % Monocyte % 12.0 % Eosinophil % 0.0 % Basophil % 0.4 % Nucleated Red Blood Cells % 0.1 Comp Metabolic Panel 08/30/2019 [facility] Sodium 135 mmol/L Normal 135-145 [phone] Potassium 4.6 mmol/L Normal 3.5-5.0 Chloride 107 mmol/L Normal 101-111 Co2 Carbon Dioxide 20 mmol/L Low 22-32 Anion Gap 8 mmol/L Normal 2-11 Glucose 107 mg/dL High 70-100 Blood Urea Nitrogen 25 mg/dL High 6-24 Creatinine 1.11 mg/dL Normal 0.67-1.17 BUN/Creatinine Ratio 22.5 High 8-20 Calcium 9.6 mg/dL Normal 8.6-10.3 Total Protein 7.0 g/dL Normal 6.4-8.9 Albumin 3.7 g/dL Normal 3.2-5.2 Globulin 3.3 g/dL Normal 2-4 Albumin/Globulin Ratio 1.1 Normal 1-3 Total Bilirubin 0.50 mg/dL Normal 0.2-1.0 Alkaline Phosphatase 103 U/L Normal 34-104 Alt 29 U/L Normal 7-52 Ast 24 U/L Normal 13-39 Egfr Non- 63.4 >60 Egfr 76.7 >60 4 Laboratory test 08/30/2019 [facility] Troponin-I (TnI) 0.01 ng/mL < 0.04 5 finding [phone] D Dimer Quantitative 356 ng/mL High Less Than 230 6 TSH (Thyroid Stim Horm) 2.17 mcIU/mL Normal 0.34-5.60 B-Type Natriuretic Peptide BNP 54 pg/mL <=100 CBC Auto Diff 07/31/2019 [facility] White Blood 6.9 10^3/uL Normal 3.5-10.8 [phone] Count Red Blood Count 5.27 10^6/uL Normal [...] Cells % 0.0 Comp Metabolic Panel 07/31/2019 [facility] Sodium 135 mmol/L Normal 135-145 [phone] Potassium 4.3 mmol/L Normal 3.5-5.0 Chloride 106 [...] Egfr Non- 58.5 >60 Egfr 70.8 >60 7 Laboratory test 07/31/2019 [facility] TSH (Thyroid 3.99 mcIU/mL Normal 0.34-5.60 finding [phone] Stim Horm) CBC Auto Diff 05/13/2019 [facility] White Blood 6.9 10^3/uL Normal 3.5-10.8 [phone] Count Red Blood Count 5.09 10^6/uL Normal [...] Cells % 0.1 Comp Metabolic Panel 05/13/2019 [facility] Sodium 136 mmol/L Normal 135-145 [phone] Potassium 4.2 mmol/L Normal 3.5-5.0 Chloride 105 [...] Egfr Non- 56.9 >60 Egfr 68.8 >60 8 1 Standard intensity warfarin therapeutic range: 2.0-3.0 High intensity warfarin therapeutic range: 2.5-3.5 2 Because ethnic data is not always [...] 5 Kidney failure <15 (or dialysis) 3 SEE RESULT BELOW Name: LEYLA CARRANZA : [address]: Jesus Hidalgo MD Acct: [id number] Unit: [id number] AGE: 84 Location: ED Re09/03/19 SEX: M Status: DEP ER SPEC: [id number] LAVERN: 09/03/19-[address] [facility] [address]: Jesus Hidalgo MD REQ: [id number] RECD: 09/03/19-1305 STATUS: SHAHEED SOLANO DR: [facility] Elliot Rivera DO _ SOURCE: URINE SPDESC: ORDERED: Urine Culture Procedure Result Reported Site Urine Culture Final 09/04/19- 1116 ML No Growth (<1,000 CFU/mL) * ML - Main Lab . END OF REPORT DEPARTMENT OF PATHOLOGY, [address] [place] [address] Jeronimo Santos M.D. Director [facility] # [id number] 4 Because ethnic data is not always readily [...] 15-29 5 Kidney failure <15 (or dialysis) 5 Troponin-I testing on Plasma Separator Tubes (PST) has a known false positive rate of 0.20-0.40%. All positive troponins reflex immediately to secondary confirmatory testing. Using the [employer] DxI 800 Access Immunoassay systems, the 99th percentile upper reference limit was demonstrated to be < 0.03 ng/mL. 6 Please note: The following may produce a false positive D Dimer test: - Rheumatoid factor greater than 60 IU/ml - Plasma hemoglobin greater than 0.05 gm/dl - Bilirubin greater than 50 mg/dl - Lipids greater than 1000 mg/dl - FDP greater than 20 ug/ml 7 Because ethnic data is not always readily [...] 15-29 5 Kidney failure <15 (or dialysis) 8 Because ethnic data is not always readily [...] 15-29 5 Kidney failure <15 (or dialysis) Procedures Date Code Description Status 09/19/2019 72956 SC/Im Injections Completed 04/15/2019 98486 X-Ray Hand-Two Views Completed 09/14/2006 74712221 Colonoscopy Completed Medical Devices Description No Information Available Encounters Type Date Location Provider Dx Diagnosis Office Visit 09/19/2019 Main Office Tristian Marks K40.30 Unil inguinal 4:20p hernia, w obst, w/o gangr, not spcf as recur Office Visit 09/05/2019 Main Office Locodonna Elliot, I26.99 Other pulmonary 2:30p D.O. embolism without acute cor pulmonale R60.9 Edema, unspecified K40.30 Unil inguinal hernia, w obst, w/o gangr, not spcf as recur I10 Essential (primary) hypertension I73.9 Peripheral vascular disease, unspecified R01.1 Cardiac murmur, unspecified E03.9 Hypothyroidism, unspecified L40.0 Psoriasis vulgaris R06.02 Shortness of breath Office Visit 08/29/2019 4:30p Main Office Rashmi Riveraon, R60.9 Edema, unspecified D.O. K40.30 Unil inguinal hernia, w obst, [...] Hypothyroidism, unspecified L40.0 Psoriasis vulgaris Z79.899 Other chcf (current) drug therapy Assessments Date Code Description Provider 09/19/2019 K40.30 Unilateral inguinal hernia, with Marga Dunaway P.A. obstruction, without gangrene, not specified as recurrent 09/05/2019 I26.99 Other pulmonary embolism without acute cor Elliot Rivera , D.O. pulmonale 09/05/2019 R60.9 Edema, unspecified Sopchak, Elliot, D.O. 09/05/2019 K40.30 Unilateral inguinal hernia, with Sopchak, Elliot, D.O. obstruction, without gangrene, not specified as recurrent 09/05/2019 I10 Essential (primary) hypertension Locok Elliot, D.O. 09/05/2019 I73.9 Peripheral vascular disease, unspecified Sopchak, Elliot, D.O. 09/05/2019 R01.1 Cardiac murmur, unspecified Sopchak, Elliot, D.O. 09/05/2019 E03.9 Hypothyroidism, unspecified Sopchak, Elliot, D.O. 09/05/2019 L40.0 Psoriasis vulgaris Sopchak, Elliot, D.O. 09/05/2019 R06.02 Shortness of breath LocokRashmion, D.O. 08/29/2019 R60.9 Edema, unspecified Sopchak, Elliot, D.O. 08/29/2019 K40.30 Unilateral inguinal hernia, with Sopchak, Elliot, D.O. obstruction, without gangrene, not specified as recurrent 08/29/2019 I10 Essential (primary) hypertension Rashmi Riveraon, D.O. 08/29/2019 I73.9 Peripheral vascular disease, unspecified Sopchak, Elliot, D.O. 08/29/2019 R01.1 Cardiac murmur, unspecified Sopchak, Elliot, D.O. 08/29/2019 E03.9 Hypothyroidism, unspecified Sopchak, Elliot, D.O. 08/29/2019 L40.0 Psoriasis vulgaris Sopchak, Elliot, D.O. 08/29/2019 R06.02 Shortness of breath Rashmi Riveraon, D.O. 08/15/2019 Z23 Encounter for immunization Nurse's Schedule 08/15/2019 Z41.8 Encounter for other procedures for purposes Nurse's Schedule other than remedying health state 07/22/2019 Z00.01 Encounter for general adult medical Elliot Rivera, D.O. examination with abnormal findings 07/22/2019 K40.30 Unilateral inguinal hernia, with Elliot Rivera, D.O. obstruction, without gangrene, not specified as recurrent 07/22/2019 I10 Essential (primary) hypertension Elliot Rivera, D.O. 07/22/2019 I73.9 Peripheral vascular disease, unspecified Rashmi Riveraon, D.O. 07/22/2019 R01.1 Cardiac murmur, unspecified LocokRashmion, D.O. 07/22/2019 E03.9 Hypothyroidism, unspecified SopchakRashmion, D.O. 07/22/2019 L40.0 Psoriasis vulgaris Elliot Rivera, D.O. 07/22/2019 Z91.81 History of falling Elliot Rivera D.O. 07/22/2019 W18.30xA Fall on same level, unspecified, initial Elliot Rivera D.O. encounter 05/15/2019 K40.30 Unilateral inguinal hernia, with Elliot Rivera, D.O. obstruction, without gangrene, not specified as recurrent 05/15/2019 I10 Essential (primary) hypertension Elliot Rivera, D.O. 05/15/2019 I73.9 Peripheral vascular disease, unspecified LocokRashmion, D.O. 05/15/2019 R01.1 Cardiac murmur, unspecified Rashmi Riveraon, D.O. 05/15/2019 E03.9 Hypothyroidism, unspecified SopcarmenkRashmion, D.O. 05/15/2019 L40.0 Psoriasis vulgaris Rashmi Riveraon, D.O. 05/15/2019 R60.9 Edema, unspecified Sopcarmenk Elliot, D.O. 05/13/2019 K40.30 Unilateral inguinal hernia, with Marga [place], P.A. obstruction, without gangrene, not specified as recurrent 05/13/2019 I10 Essential (primary) hypertension Marga Dunaway, P.A. 05/13/2019 I73.9 Peripheral vascular disease, unspecified Marga Dunaway, P.A. 04/15/2019 M79.641 Pain in right hand Elliot Rivera D.O. 04/15/2019 I10 Essential (primary) hypertension Elliot Rivera D.O. 04/15/2019 R01.1 Cardiac murmur, unspecified Elliot Rivera D.O. 04/15/2019 E03.9 Hypothyroidism, unspecified Elliot Rivera D.O. 04/15/2019 L40.0 Psoriasis vulgaris Elliot Rivera D.O. 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 Plan of Treatment Future Appointment(s):07/23/2020 3:30 pm - Elliot Rivera D.O. at Main Yvsbrw3009/05/2019 - Elliot Rivera D.O.I26.99 Other pulmonary embolism without acute cor pulmonaleNew Medication:Xarelto 20 mg - 1 by mouth every day after 15mg tabs done after 21 days.R60.9 Edema, unspecifiedNew Medication:Xarelto 20 mg - 1 by mouth every day after 15mg tabs done after 21 days.Follow up:as hegdufljhM69.30 Unilateral inguinal hernia, with obstruction, without gangrene, not specified as bggiwffrnM18 Essential (primary) yghxcerkaqkcK50.9 Peripheral vascular disease, omlnmnzrsfrW62.1 Cardiac murmur, jimbvcthehtE68.9 Hypothyroidism, dayazlvmisqS65.0 Psoriasis qeyynvihT74.02 Shortness of breath Functional Status Description No Information Available Mental Status Description No Information Available Referrals Description No Information Available
--- NOTE | 2019-09-19 23:16 | ED ---
Abdominal Pain/Male - HPI Summary HPI Summary: 84-year-old intellectually disabled male with a significant past medical history of bilateral inguinal hernia, aortoiliac syndrome, atherosclerosis, chronic urticaria, Carson's thyroiditis, BPH, anxiety reports the emergency department today due to an irreducible right inguinal hernia. Home health aide says his right inguinal hernia has been an issue for years and is typically able to be reduced once a week. She states this morning the nurse where he lives try to reduce his inguinal hernia and was unable to. She states she went to his primary care physician who sent him here for reevaluation due to inability to reduce hernia due to patient's cooperation. History is difficult to obtain from patient due to intellectual possibility. Home health aide states he has not had fever, chest pain, abdominal pain, nausea, vomiting, diarrhea, pain with urination. - History of Current Complaint Chief Complaint: EDAbdPain Stated Complaint: HERNIA PER DR Time Seen by Provider: 09/19/19 23:16 Hx Obtained From: Family/Component Engineer - health aide Hx From Patient Unobtainable Due To: Other - Intellectual disability Onset/Duration: Gradual Onset Timing: Constant Severity Initially: Mild Pain Intensity: 0 Pain Scale Used: 0-10 Numeric Associated Signs And Symptoms: Negative: Fever, Cough, Constipation, Blood in Stool, Decreased Appetite, Nausea, Vomiting, Diarrhea, Penile Discharge - Allergies/Home Medications Allergies/Adverse Reactions: Allergies Allergy/AdvReac Type Severity Reaction Status Date / Time amoxicillin [From Augmentin] Allergy Unknown Verified 09/01/19 10:01 Reaction Details clavulanic acid Allergy Unknown Verified 09/01/19 10:01 [From Augmentin] Reaction Details PMH/Surg Hx/FS Hx/Imm Hx Endocrine/Hematology History: Reports: Hx Thyroid Disease - hypo Denies: Hx Diabetes Cardiovascular History: Reports: Hx Hypertension Respiratory History: Denies: Hx Asthma, Hx Chronic Obstructive Pulmonary Disease (COPD) GI History: Reports: Other GI Disorders - chronic constipation Denies: Hx Ulcer History: Reports: Other Problems/Disorders - Bilateral inguinal hernia Sensory History: Reports: Hx Cataracts - BILAT Denies: Hx Contacts or Glasses, Hx Hearing Aid Opthamlomology History: Reports: Hx Cataracts - BILAT Denies: Hx Contacts or Glasses Neurological History: Reports: Hx Developmental Delay, Other Neuro Impairments/ Disorders - [place] Palsy Psychiatric History: Reports: Hx Anxiety - excessive, 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 - Surgical History Hx Anesthesia Reactions: No - UNKNOWN - Immunization History Date of Tetanus Vaccine: utd Date of Influenza Vaccine: utd Infectious Disease History: No Infectious Disease History: 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 Denies: Hx Clostridium Difficile, Hx Hepatitis, Hx Human Immunodeficiency Virus (HIV), Hx of Known/Suspected MRSA, Hx Shingles, Hx Known/Suspected VRE, Hx Known/Suspected VRSA, History Other Infectious Disease, Traveled Outside the [place] in Last 30 Days - Family History Known Family History: Positive: Unknown - LEVEL 5 CAVEAT secondary to MR - Social History Alcohol Use: None Hx Substance Use: No Substance Use Type: Reports: None Hx Tobacco Use: No Smoking Status (MU): Never Smoked Tobacco Review of Systems Constitutional: Negative Eyes: Negative ENT: Negative Cardiovascular: Negative Respiratory: Negative Gastrointestinal: Negative Negative: discharge Musculoskeletal: Negative Skin: Negative Neurological: Negative Psychological: Normal All Other Systems Reviewed And Are Negative: Yes Physical Exam - Summary Physical Exam Summary: Inspection of the groin reveals no lesions or ecchymosis or erythema. There is significant edema noted to the right scrotum and inguinal area. Palpation reveals induration the suprapubic area extending to the scrotum consistent with hernia sac. Hernia is unable to be reduced. Patient does not have exquisite tenderness with palpation of the scrotum or testicles. Cremasteric reflex intact bilaterally. Triage Information Reviewed: Yes Vital Signs On Initial Exam: Initial Vitals Temp Pulse Resp BP Pulse Ox 97.6 F 66 18 137/116 96 09/19/19 18:23 09/19/19 18:23 09/19/19 18:23 09/19/19 18:23 09/19/19 18:23 Vital Signs Reviewed: Yes Completion Of Physical Exam Limited Due To: Other - Electrical disability and combative patient Appearance: Positive: Well-Appearing, No Pain Distress, Well-Nourished Skin: Positive: Warm, Skin Color Reflects Adequate Perfusion Eyes: Positive: EOMI, MARILYN ENT: Positive: Hearing grossly normal Respiratory/Lung Sounds: Positive: Clear to Auscultation, Breath Sounds Present Cardiovascular: Positive: RRR, S1, S2 Abdomen Description: Positive: Nontender, Soft Bowel Sounds: Positive: Present Male Genital Exam: Positive: Hernia Mass - Right inguinal hernia appreciated. Negative: Normal Genitalia, No Hernia, Epididymal Tenderness, Erythema, Lesions , Urethral Discharge Musculoskeletal: Positive: Strength/ROM Intact Neurological: Positive: Sensory/Motor Intact, Alert, Oriented to Person Place, Time, Normal Gait Psychiatric: Positive: Normal AVPU Assessment: Alert Procedures - Sedation Patient Received Moderate/Deep Sedation with Procedure: No Diagnostics - Vital Signs Vital Signs Temp Pulse Resp BP Pulse Ox 09/19/19 20:28 97.6 F 72 20 0/0 96 09/19/19 18:23 97.6 F 66 18 137/116 96 - Laboratory Result Diagrams: 09/20/19 01:15 09/20/19 01:15 Lab Statement: Any lab studies that have been ordered have been reviewed, and results considered in the medical decision making process. Abdominal Pain Male Course/Dx - Course Course Of Treatment: Patient was evaluated in the emergency department today for right inguinal hernia. Patient seen and examined his vitals are stable. Evaluation was made difficult by patient's and partial disability and lack of cooperation with exam. He was given 4 mg of Ativan and 100 g of fentanyl for sedation. After sedation he was given an IV and laboratory studies were drawn. She received a CT of the abdomen and pelvis with IV contrast which revealed no evidence of bowel obstruction or incarceration of right inguinal hernia. Lab studies revealed no leukocytosis or significant abnormalities. There is mild decrease in renal function however this is the patient's baseline. Patient is a right inguinal hernia which is non-obstructing and not incarcerated requiring intervention at this time. Dr. Triana was consulted at 0119 with these findings and recommended outpatient follow-up and no surgical infection is required at this time. He is to follow-up with Dr. Triana, general surgeon as an outpatient for further evaluation and management of his symptoms. Patient agrees with plan. - Diagnoses Differential Diagnosis/HQI/PQRI: Epididymitis, Testicular Torsion, Other - hernia Provider Diagnoses: Right inguinal hernia - Provider Notifications Discussed Care Of Patient With: Jorje Triana - please patient was set for outpatient follow-up and no intervention is required at this time for a nonobstructing nonincarcerated hernia Time Discussed With Above Provider: 01:19 Discharge ED - Sign-Out/Discharge Documenting (check all that apply): Patient Departure - Discharge Plan Condition: Stable Disposition: HOME Patient Education Materials: Inguinal Hernia (ED) Referrals: Elliot Rivera DO [Primary Care Provider] - Jorje Triana MD [Medical Doctor] - 3 Days Additional Instructions: He was seen in the emergency department today for right inguinal hernia. This hernia does not require intervention at this time as it is not obstructing and is not incarcerated. Please follow-up with Dr. Triana as an outpatient for further evaluation and management of his symptoms. Please return to the emergency department immediately if he develops any new or worsening symptoms. - Billing Disposition and Condition Condition: STABLE Disposition: Home
[2019-09-19] MEDS ORDERED: LORazepam TAB(*) 1 MG PO ONE (23:21)
[2019-09-20] MEDS ORDERED: fentaNYL* 50 MCG/ML 2 ML VIAL (100 MCG VIAL) ONE (00:17)
[2019-09-20] MEDS ORDERED: LORazepam INJ* 2 MG/ML 1 ML VIAL IM ONE (00:35)
[2019-09-20] MEDS ORDERED: Lorazepam PYXIS KEY PRN (00:35)
[2019-09-20] MEDS ORDERED: Lorazepam PYXIS KEY ONE (00:37)
[2019-09-20] MEDS ORDERED: LORazepam INJ* 2 MG/ML 1 ML VIAL ONE (00:37)
[2019-09-20 01:26] LABS: ABS Lymphocytes 1.7 10^3/ul (1.0-4.8); ABS Monocytes 0.8 10^3/ul (0-0.8); ABS Neutrophils 4.6 10^3/ul (1.5-7.7); Hematocrit 33 % (42-52); Hemoglobin 11.4 g/dL (14.0-18.0); Mean Corpuscular HGB Conc 35 g/dL (31-36); Mean Corpuscular Hemoglobin 31 pg (27-31); Mean Corpuscular Volume 89 fL (80-94); Mean Platelet Volume 8.1 fL (7.4-10.4); Nucleated Red Blood Cells % 0.1; Platelet Count 271 10^3/uL (150-450); Red Cell Distribution Width 15 % (10-15); White Blood Count 7.2 10^3/uL (3.5-10.8)
[2019-09-20 01:39] LABS: Activated Partial Thrombo Time 76.3 seconds (26.0-38.0); INR 1.16 (0.82-1.09)
[2019-09-20 01:46] LABS: Albumin 3.5 g/dL (3.2-5.2); Albumin/Globulin Ratio 1.1 (1-3); BUN/Creatinine Ratio 27.1 (8-20); C Reactive Protein 5.15 mg/L (<8.01); Calcium 9.3 mg/dL (8.6-10.3); EGFR African American 58.7 (>60); EGFR Non-African American 48.5 (>60); Globulin 3.2 g/dL (2-4); Potassium 3.7 mmol/L (3.5-5.0); Total Bilirubin 0.4 mg/dL (0.2-1.0); Total Protein 6.7 g/dL (6.4-8.9)
[2019-09-20 05:18] VITALS: BP 0/0
== END 2019-09-20 04:19 | disposition home or self-care (01) ==
LOC: ED 18:19
DX: K40.90 Unilateral inguinal hernia, without obstruction or gangrene, not specified as recurrent (principal); N28.9 Disorder of kidney and ureter, unspecified; K57.30 Diverticulosis of large intestine without perforation or abscess without bleeding; I10 Essential (primary) hypertension; R62.50 Unspecified lack of expected normal physiological development in childhood; Z88.1 Allergy status to other antibiotic agents; Z88.0 Allergy status to penicillin
CPT/HCPCS: 36415; 74176; 80053; 85025; 85610; 85730; 86140; 96372; 99283; A9270-GY; J2060; J3010

== ENCOUNTER 2019-10-15 18:54 | Emergency (ER) | payer MEDICARE, MEDICAID ==
[2019-10-15] MEDS ORDERED: NS 0.9% 1000 ML** 1,000 ML IV ONE (19:11)
[2019-10-15 19:33] LABS: ABS Monocytes 1.1 10^3/ul (0-0.8); ABS Neutrophils 8.3 10^3/ul (1.5-7.7); Hematocrit 30 % (42-52); Lymphocyte % 17.5 %; Mean Corpuscular HGB Conc 34 g/dL (31-36); Mean Corpuscular Hemoglobin 29 pg (27-31); Mean Corpuscular Volume 85 fL (80-94); Platelet Count 331 10^3/uL (150-450); Red Cell Distribution Width 14 % (10-15); White Blood Count 11.4 10^3/uL (3.5-10.8)
--- NOTE | 2019-10-15 19:33 | ED ---
Altered Mental Status - HPI Summary HPI Summary: Pt is an 84 y/o M presenting to the ED brought in by EMS accompanied by office secretary, Elif. LEVEL 5 CAVEAT: Full hx and physical limited d/t pts cooperation. Hx taken by staff, Leslie. Asencio states the pt was walking downstairs around 1700, presumably to go to dinner, but the pt instead wanted to go to sleep, and he is not normally this fatigued around this time. After getting ready for bed, he was somewhat ashen/pale, sat down, and experienced wheezing and shortness of breath. RR 26-28 and SaO2 around 92%. Pt has also experienced decreased appetite. Recently stopped his Xarelto d/t decreased RBC. Elif denies staff reporting any vomiting, diarrhea, fever, cough, or urinary sx. Notes he has been more combative. - History Of Current Complaint Chief Complaint: EDAltMentalStatus Stated Complaint: GENERAL ILLNESS PER EMS Time Seen by Provider: 10/15/19 19:10 Hx Obtained From: Family/Handstitching Machine Collar Feller Hx From Patient Unobtainable Due To: Altered Mental Status Onset/Duration: Still Present, Gradually Timing: Constant, Lasting Days Severity Initially: Moderate Severity Currently: Moderate Character: Lethargy Aggravating Factor(s): Unknown Associated Signs And Symptoms: Negative: Nausea, Vomiting, Fever - Allergies/Home Medications Allergies/Adverse Reactions: Allergies Allergy/AdvReac Type Severity Reaction Status Date / Time amoxicillin [From Augmentin] Allergy Unknown Verified 10/15/19 20:30 Reaction Details clavulanic acid Allergy Unknown Verified 10/15/19 20:30 [From Augmentin] Reaction Details Home Medications: Home Medications Atorvastatin* [Lipitor 80 MG*] 80 mg PO DAILY 10/15/19 [History Confirmed ] Bacitracin OINTMENT* 1 applic TOPICAL BID 10/15/19 [History Confirmed 10/15/19] PMH/Surg Hx/FS Hx/Imm Hx Previously Healthy: Yes Endocrine/Hematology History: Reports: Hx Thyroid Disease - hypo Denies: Hx Diabetes Cardiovascular History: Reports: Hx Hypertension Respiratory History: Denies: Hx Asthma, Hx Chronic Obstructive Pulmonary Disease (COPD) GI History: Reports: Other GI Disorders - chronic constipation Denies: Hx Ulcer History: Reports: Other Problems/Disorders - Bilateral inguinal hernia Sensory History: Reports: Hx Cataracts - BILAT Denies: Hx Contacts or Glasses, Hx Hearing Aid Opthamlomology History: Reports: Hx Cataracts - BILAT Denies: Hx Contacts or Glasses Neurological History: Reports: Hx Developmental Delay, Other Neuro Impairments/ Disorders - [place] Palsy Psychiatric History: Reports: Hx Anxiety - excessive, 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 - Surgical History Hx Anesthesia Reactions: No - UNKNOWN - Immunization History Date of Tetanus Vaccine: utd Date of Influenza Vaccine: utd Infectious Disease History: Unable to Obtain/Confirm Infectious Disease History: 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 Denies: Hx Clostridium Difficile, Hx Hepatitis, Hx Human Immunodeficiency Virus (HIV), Hx of Known/Suspected MRSA, Hx Shingles, Hx Known/Suspected VRE, Hx Known/Suspected VRSA, History Other Infectious Disease, Traveled Outside the [place] in Last 30 Days - Family History Known Family History: Positive: Unknown - LEVEL 5 CAVEAT secondary to MR - Social History Alcohol Use: None Hx Substance Use: No Substance Use Type: Reports: None Hx Tobacco Use: No Smoking Status (MU): Never Smoked Tobacco Review of Systems - ROS Summary Review of Systems Summary: Home Medications Medication Instructions Recorded Confirmed Type LoraTADine TAB(NF) [Claritin 10 MG 10 mg PO DAILY 07/22/12 09/19/19 History TAB(NF)] Topiramate TAB(*) [Topamax 25 MG 25 mg PO BID 07/22/12 09/19/19 History tab] Triamcinolone 0.1% OINT(NF) 1 applic TOPICAL BID 07/22/12 09/19/19 History [Kenolog 0.1% OINT(NF)] chlorproMAZINE TAB* [Thorazine 25 25 mg PO QPM 07/22/12 09/19/19 History MG TAB*] Childress Tar [Tarsum Professional] 2 applic TOPICAL DAILY #0 08/17/15 09/19/19 History Ibuprofen TAB* [Advil TAB*] 400 mg PO Q6H PRN 08/17/15 09/19/19 History Acetaminophen TAB* [Tylenol TAB*] 650 mg PO Q4H PRN 04/14/18 09/19/19 History Bisacodyl [Dulcolax] 10 mg PO Q2D PRN 04/14/18 09/19/19 History Sodium Phosphate ADULT ENEMA* 1 enema VT Q3D PRN 04/14/18 09/19/19 History [Fleet Enema*] guaiFENesin 100 mg/5 ml LIQ 10 ml PO Q4H PRN 04/14/18 09/19/19 History [Robitussin 100 mg/5ml LIQ] Metoprolol Tartrate TAB* 25 mg PO BID #60 tab 04/18/18 09/19/19 Rx [Lopressor TAB*] Tamsulosin CAP* [Flomax CAP*] 0.4 mg PO DAILY #30 cap 04/18/18 09/19/19 Rx Betamethasone Dip 0.05% ON(NF) 1 applic TOPICAL BID 06/04/18 09/19/19 History [Betamethasone Dipr 0.05% OINT(NF)] Chlorhexidine MOUTHWASH 0.12%* 15 ml MT BID 06/04/18 09/19/19 History [Peridex Mouth Wash 0.12%*] Docusate CAP* [Colace Cap*] 200 mg PO BID 06/04/18 09/19/19 History Levothyroxine TAB* [Synthroid TAB*] 50 mcg PO QAM 06/04/18 09/19/19 History clonazePAM TAB(*) [Klonopin TAB(*)] 0.25 mg PO QAM MDD 0.75mg 06/04/18 09/19/19 History clonazePAM TAB(*) [Klonopin TAB(*)] 0.5 mg PO BEDTIME MDD 0.75 06/04/18 History Adalimumab (NF) [Humira Pen (NF)] 40 mg SUBCUT Q14D 05/13/19 09/19/19 History Aspirin EC TAB* [Ecotrin EC Low 81 mg PO EVERY OTHER DAY 05/13/19 09/19/19 History Dose 81 MG*] Calcitriol [Vectical] 3 mcg TOPICAL BID 05/13/19 09/19/19 History Cholecalciferol (Vitamin D3) 5,000 unit PO DAILY 05/13/19 09/19/19 History [Vitamin D3] Dimethicone [Cerave Baby] 1 % TOPICAL BID PRN 05/13/19 09/19/19 History Finasteride TAB* [Proscar TAB*] 5 mg PO DAILY 05/13/19 09/19/19 History Hydrocortisone Valerate 15 gm TOPICAL BID 05/13/19 09/19/19 History Lactulose* 30 ml PO DAILY PRN 05/13/19 09/19/19 History Mag Hydrox/Aluminum Hyd/Simeth 10 ml PO ACHS PRN 05/13/19 09/19/19 History [Maalox Maximum Strength Susp] Multivitamins/Minerals TAB* 1 tab PO DAILY 05/13/19 09/19/19 History [Theragran/minerals TAB*] Polyethylene Glycol 3350* 17 gm PO DAILY 05/13/19 09/19/19 History [Miralax*] Propylene Glycol/Peg 400/Pf 1 drop BOTH EYES Q4HR 05/13/19 09/19/19 History [Systane 0.3-0.4% Eye Drops] Sodium Chloride [Alpine Saline] 50 ml BOTH NARES BID PRN 05/13/19 09/19/19 History Vitamins A & D OINT* [Vitamin A & 1 applic TOPICAL BID PRN 05/13/19 09/19/19 History D Oint*] Zinc Oxide [Desitin] 13 % TOPICAL TID PRN 05/13/19 09/19/19 History Rivaroxaban TAB(*) [Xarelto 15 15 mg PO BID 21 Days #42 tab 09/01/19 09/19/19 Rx mg(*)] Sulfamethox/Trimethoprim DS* 1 tab PO BID 7 Days #14 tab 09/03/19 09/19/19 Rx [Bactrim DS 800/160 TAB*] Positive: Fatigue, Other - decreased appetite. Negative: Fever Positive: Shortness Of Breath, Other - wheezing. Negative: Cough Negative: Vomiting, Diarrhea Positive: no symptoms reported Positive: Other - ashen, pale Positive: Other - more combative recently All Other Systems Reviewed And Are Negative: No Physical Exam - Summary Physical Exam Summary: LEVEL 5 CAVEAT: Full hx and physical limited d/t pts cooperation. General: Well-developed, Well-nourished elderly gentleman. No apparent distress. HEENT: Normocephalic, Atraumatic. Eyes: Conjuctiva normal, PERRL. Oropharynx: Clear, mucous membranes moist, (-) exudates. Neck: Soft, FROM, (-) lymphadenopathy, (-) thyromegaly, (-) JVD. Cardiovascular: Normal sinus rhythm, (-) murmur. Lungs: Clear to auscultation bilaterally (-) wheezes, (-) rales, (-) rhonchi. Abdomen: Firm, non-distended, (-) organomegaly, normal bowel sounds. Back: (-) CVA tenderness Extremities: No edema. Repetitive motions of the mouth and upper body. Frequently smacking himself with his L hand on the head. Skin: Warm, dry, (-) rash. Neuro: Alert, at baseline per staff. Psychiatric: At baseline per staff. Triage Information Reviewed: Yes Vital Signs On Initial Exam: Initial Vitals Temp Pulse Resp BP Pulse Ox 97.9 F 70 20 178/80 94 10/15/19 18:56 10/15/19 18:56 10/15/19 18:56 10/15/19 18:56 10/15/19 18:56 Vital Signs Reviewed: Yes Completion Of Physical Exam Limited Due To: Altered Mental Status, Level 5 Procedures - Sedation Patient Received Moderate/Deep Sedation with Procedure: No Diagnostics - Vital Signs Vital Signs Temp Pulse Resp BP Pulse Ox 10/15/19 18:56 97.9 F 70 20 178/80 94 - Laboratory Result Diagrams: 10/15/19 19:25 10/15/19 19:25 Lab Statement: Any lab studies that have been ordered have been reviewed, and results considered in the medical decision making process. - EKG 1925 Cardiac Rate: NL - 74bpm EKG Rhythm: Sinus Rhythm ST Segment: Normal Ectopy: None Summary of EKG Findings: EKG at 192 reveals normal sinus rhythm with rate of 74 BPM, no acute changes, no ischemic changes. This EKG was reviewed and interpreted by Dr. Hsu. Re-Evaluation - Re-Evaluation 1st re-eval Re-Evaluation Time: 21:04 Change: Improved Comment: I have discussed results with the patient and current sx have resolved. Discussed symptoms that warrant immediate return to ED. Altered Mental Statu Course/Dx - Course Course Of Treatment: 84 y/o M brought from alf d/t fatigue and decreased appetite. Physical exam essentially WNL. Workup demonstrates UTI. In the ED course, pt was given 2gm Rocephin with 1,100ml of fluids, d/jarred home on Keflex. Advised plenty of fluids. F/u with PCP. F/u sooner with any worsening sx. - Diagnoses Provider Diagnoses: UTI (urinary tract infection) Discharge ED - Sign-Out/Discharge Documenting (check all that apply): Patient Departure - Discharge Plan Condition: Stable Disposition: HOME Prescriptions: Cephalexin CAP* [Keflex CAP*] 500 mg PO TID #21 cap Patient Education Materials: Urinary Tract Infection in Older Adults (ED) Referrals: Elliot Rivera DO [Primary Care Provider] - Additional Instructions: Please follow up with your primary care physician within three days. Please return to ED for any new or worsening symptoms. - Billing Disposition and Condition Condition: STABLE Disposition: Home - Attestation Statements Document Initiated by Sariahibgurmeet: Yes Documenting Scribe: Yadira Diehl Provider For Whom Hernandez is Documenting (Include Credential): Myra Hsu MD. Scribe Attestation: Yadira Lang, scribed for Myra Hsu MD. on 10/15/19 at 2207. Scribe Documentation Reviewed: Yes Provider Attestation: The documentation as recorded by the Yadira olmstead accurately reflects the service I personally performed and the decisions made by Myra chung MD. Status of Scribe Document: Viewed
[2019-10-15 19:45] LABS: INR 1.13 (0.82-1.09)
[2019-10-15 19:52] LABS: ALT 20 U/L (7-52); AST 21 U/L (13-39); Albumin 3.9 g/dL (3.2-5.2); Albumin/Globulin Ratio 1.2 (1-3); Alkaline Phosphatase 78 U/L (34-104); Anion Gap 5 mmol/L (2-11); BUN/Creatinine Ratio 28.7 (8-20); Blood Urea Nitrogen 31 mg/dL (6-24); CO2 Carbon Dioxide 25 mmol/L (22-32); Calcium 9.4 mg/dL (8.6-10.3); Chloride 106 mmol/L (101-111); EGFR African American 79.2 (>60); EGFR Non-African American 65.5 (>60); Globulin 3.2 g/dL (2-4); Glucose 102 mg/dL (70-100); Potassium 4.2 mmol/L (3.5-5.0); Sodium 136 mmol/L (135-145); Total Protein 7.1 g/dL (6.4-8.9)
[2019-10-15 19:53] LABS: Troponin I 0.02 ng/mL (<0.03)
[2019-10-15 20:10] LABS: Urine Appearance Clear; Urine Bilirubin Negative (Negative); Urine Blood Negative (Negative); Urine Color Yellow; Urine Glucose Negative (Negative); Urine Ketones Negative (Negative); Urine Nitrite Negative (Negative); Urine Protein Negative (Negative); Urine Specific Gravity 1.016 (1.010-1.030); Urine Urobilinogen Negative (Negative)
--- OUTSIDE RECORDS SUMMARY | 2019-10-15 20:12 | XMS REPORT | Continuity of Care Document ---
:1935 External Reference #:[id number] Author Name Jorje Triana MD, FACS (transmitted by agent of provider Ashley Irvin) Address [address] [place] [address] Care Team Providers Name Role Phone Elliot Rivera DO - Family Care Team Information Fitness Teacher [phone] Medicine Problems Active Problems Provider Date Heart murmur Eleazar Gore M.D., [facility], FASNC Onset: 05/12/2016 Social History Type Date Description Comments Sex Unknown ETOH Use Denies alcohol use Tobacco Use Start: Unknown Patient has never smoked Recreational Drug Use Denies Drug Use Smoking Status Reviewed: 09/25/19 Patient has never smoked Exercise Type/Frequency Exercises regularly no exercise regimen, walking, keeps active Allergies, Adverse Reactions, Alerts Active Allergies Reaction Severity Comments Date Augmentin unknown 05/12/2016 Medications Active Medications SIG Qnty Indications Ordering Date Provider Miralax please take 17 grams Unknown [id number] Powder in a drink of your choice. one/two drinks as directed. Metoprolol Tartrate 1 by mouth twice a Unknown day 25mg Tablets Finasteride 1 by mouth every day Unknown 5mg Tablets Prune Juice by mouth twice daily Unknown Lactulose 30ml once a day Unknown 10GM/15ML Solution Atorvastatin Calcium 1 by mouth every day Unknown 80mg Tablets Xarelto 1 by mouth every day Unknown 20mg Tablets Calcitriol Ointment as directed to legs Unknown Tamsulosin HCL 1 by mouth every day Unknown 0.4mg Capsules Clonazepam take 1 tablet at Unknown 0.5mg bedtime Tablets [place]ort apply to affected Unknown 0.2% Ointment area's twice a day as directed Humira inject content of one Unknown 40mg/0.4ML PSKT pen subcutaneously every other week. Bacitracin Zinc prn Unknown 500Unit/GM Ointment Triamcinolone apply to dry skin Unknown Acetonide once or twice daily 0.1% Lotion Vectical 2x daily to legs Unknown 3mcg/GM Ointment Topamax 1 tab by mouth twice Unknown 25mg Tablets a day Colace 1 by mouth up to 3 Unknown 100mg Capsules times a day as needed for constipation. Artificial Tears instill one to two Unknown 1.4% drops as needed every Solution 4 hours Tylenol as needed Unknown 325mg Tablets Aspirin Low Dose 1 by mouth every day Unknown 81mg Chewtabs Klonopin 1/2 tab by mouth once Unknown 0.5mg Tablets a day Chlorpromazine HCL take 1 tab by mouth Unknown 25mg Tablets Antacid Anti-Gas daily Unknown [id number] Suspension Ibuprofen as needed Unknown 200mg Tablets Levothyroxine Sodium 1 by mouth every day Unknown 50mcg Tablets Claritin 1 by mouth every day Unknown 10mg Capsules Vitamin D3 Maximum 1 by mouth every day Unknown Strength 5000Unit Capsules Xanax by mouth three times Unknown 0.5mg Tablets a day as needed Tab-A-Boo/Iron daily Unknown Tablets Immunizations Description No Information Available Vital Signs Date Vital Result Comment 09/25/2019 1:31pm Height 64 inches 5'4" Weight 173.00 lb Heart Rate 84 /min BP Systolic Sitting 142 mmHg BP Diastolic Sitting 80 mmHg Respiratory Rate 16 /min Body Temperature 98.1 F BMI (Body Mass Index) 29.7 kg/m2 05/12/2016 10:41am Height 64.5 inches 5'4.50" Weight 158.00 lb BP Systolic 136 mmHg LA reg cuff BP Diastolic 88 mmHg LA reg cuff BP Systolic Sitting 134 mmHg Ra reg cuff BP Diastolic Sitting 84 mmHg Ra reg cuff BP Systolic Standing 134 mmHg Ra BP Diastolic Standing 88 mmHg Ra Respiratory Rate 18 /min BMI (Body Mass Index) 26.7 kg/m2 Ejection Fraction 65-70% 05/03/16 Results Description No Information Available Procedures Description No Information Available Medical Devices Description No Information Available Encounters Description No Information Available Assessments Date Code Description Provider 09/25/2019 K40.90 Unilateral inguinal hernia, without Jorje Triana MD, FACS obstruction or gangrene, not specified as recurrent Plan of Treatment 09/25/2019 - Jorje Triana MD, [id number] Unilateral inguinal hernia, without obstruction or gangrene, not specified as recurrentFollow up:Operating room when consent is achieved. Patient will have to be off his blood thinners prior to surgery. I would like him to undergo a history and physical for his primary care doctor's office priorto surgical intervention. Surgery will require general anesthesia. Functional Status Description No Information Available Mental Status Description No Information Available Referrals Description No Information Available
[2019-10-15 20:13] LABS: Urine Bacteria 1+ (Absent); Urine Red Blood Cell 2+(6-10/hpf) (Absent); Urine White Blood Cell 3+(>20/hpf) (Absent)
[2019-10-15 20:14] LABS: Acetaminophen < 15 mcg/mL; Salicylate < 2.50 mg/dL (<30)
[2019-10-15 20:29] LABS: TSH (Thyroid Stimulating Horm) 1.99 mcIU/mL (0.34-5.60)
[2019-10-15] MEDS ORDERED: cefTRIAXone(*) 2 GM in NS 0.9% 100 ML* 100 ML IVPB ONE (20:32)
[2019-10-15 20:34] LABS: Urine Benzodiazepine Screen None Detected (None Detect); Urine Opiates Screen None Detected (None Detect)
[2019-10-15] MEDS ORDERED: Cephalexin CAP* 500 MG PO ONE ×3 (21:35)
[2019-10-15 21:48] VITALS: BP 146/102
== END 2019-10-15 21:37 | disposition home or self-care (01) ==
LOC: ED 18:54
DX: N39.0 Urinary tract infection, site not specified (principal); R53.83 Other fatigue; R06.02 Shortness of breath; Z79.899 Other long term (current) drug therapy; I10 Essential (primary) hypertension; F41.9 Anxiety disorder, unspecified
CPT/HCPCS: 36415; 80053; 80307; 80329; 81003; 81015; 82140; 83605; 84443; 84484; 85025; 85610; 87086; 93005; 96361; 96365; 99284; A9270-GY; G0480; J0696

== ENCOUNTER 2019-11-26 07:48 | Emergency (ER) | payer MEDICARE, MEDICAID ==
--- OUTSIDE RECORDS SUMMARY | 2019-11-26 08:19 | XMS REPORT | Continuity of Care Document ---
:1935 External Reference #:[id number] Author Name Kanwal Cerrato MD Address [address] [place] [address] Care Team Providers Name Role Phone Ben Thompson MD - Care Team Information Heavy Forger Helper [phone] Otolaryngology Miguelito Mejia MD - Internal Care Team Information Heavy Forger Helper [phone] [facility] - Surgery Care Team Information Heavy Forger Helper [phone] Problems Active Problems Provider Date Hypothyroidism Max [...] Medications SIG Qnty Indications Ordering Date Provider Enulose Give 2 Tablespoon 946units [facility], 09/29/2019 10GM/15ML (30cc) By Mouth Elliot, D.O. Solution Every Day (Constipation) Hold For >3 BM Per Day Or Diarrhea Clonazepam take 1 tablet by 1tabs I10 [facility], 08/29/2019 0.5mg mouth 30 min prior Elliot, D.O. Tablets to EKG Miralax 1.5 capfuls 510gm K59.03 [facility], 07/23/2019 3350NF Powder (25.5gm=30cc) 12 Elliot, D.O. oz of fluid by mouth every day hold for > 3 stools/day/diarrhe a (constipation) Vitamin D3 Take One Tablet By [facility], 07[facility]2019 5000Unit Mouth Every Day Elliot, D.O. Tablet (Diet Supplement) Levothyroxine Sodium Take 1 Tablet By 30tabs E03.9 [facility], 05/30/2019 Mouth Every Day Elliot, D.O. 50mcg Tablets (Hypothyroidism) Clonazepam 1 po every morning Unknown 05/12/2019 0.25mg before breakfast Tablets Dispers for anxiety Clonazepam 1 po at bedtime Unknown 05/12/2019 0.5mg for anxiety Tablets Dispers Allergy Take 1 Tablet By 90tabs [facility], 04/24/2019 10mg Tablets Mouth Every Day Elliot, D.O. (For Allergies) Atorvastatin Calcium Take 1 Tablet By 90tabs E78.4 [facility], 04/10/2019 Mouth Every Day Elliot, D.O. 80mg Tablets (1700=5PM) Colace take 2 capsules by 180caps K59.01 [facility], 03/25/2019 100mg Capsules mouth twice a day Elliot, D.O. (stool softening) Ear Flushing do not flush ears [facility], 03/21/2019 until ear drum has Elliot, D.O. been visualized without defect. Saline Mist [place] spray once in each 45units J31.0 [facility], 12/19/2018 0.65% nostril daily (for Elliot, D.O. Solution dryness) Tarsum Professional 2 Capfuls AT Bath 236units [facility], 11/27/2018 2% Time Every Day Elliot, D.O. Shampoo (Tar Bath) For Washing Body Finasteride Take 1 Tablet By 27tabs [facility], 10/21/2018 5mg Tablets Mouth Every Day Elliot, D.O. Metoprolol Tartrate (Take BP Prior To 60tabs I10 [facility], 09/12/2018 Giving This Med) 1 Elliot, D.O. 25mg Tablets Tab By Mouth 2 Times A Day * Hold If BP Lower Than 90/60 Or Pulse Lower Than 60 Take Vitals First Systane Ultra 1 drop both eyes 75units [facility], 05/15/2018 Preservative Free as needed every 4 Elliot, D.O. hours for dry eyes 0.4-0.3% Solution as needed Tamsulosin HCL 1 by mouth every 90caps [facility], 04/18/2018 0.4mg day Elliot, D.O. Capsules Chlorhexidine Swab 1 Teaspoon On 473units [facility], 04/18/2018 Gluconate Gums Twice Daily Leliot, D.O. 0.12% For Oral Care Solution Zincon 1% Use 3 Times Weekly 118units [facility], 06/26/2017 Shampoo Elliot, D.O. Bacitracin (External) apply small amount Unknown 05/15/2017 to affected area 500Unit/GM Ointment twice daily as needed for minor skin abrasions/open sores Acetaminophen 2 by mouth every 8 120tabs M25.541 [facility], 05/15/2017 325mg hours, as needed, Yohannes Tavera Tablets ,may receive daily [facility] 3mcg/GM Twice Daily After Arianna Zarate Ointment Bath & Before Bed. (Psoriasis) Cerave Apply To Body 453units [facility], 02/05/2017 Cream Twice Daily (Dry Hailey Zarate.O. Skin) Am=After Bath/ PM=Before Bed Hydrocortisone apply to facial 45gm L40.0 [facility], 06/15/2016 Valerate lesions twice a Elliot D.O. 0.2% Cream day as needed dryness, itching or redness Tylenol Supp Insert 1 rectally Unknown 06/15/2016 every 4 hrs prn temp >101 Ducodyl 15mg on day 2 if 30tabs K59.00 [facility], 06/15/[address] joanne Zarate D.O. Guaifenesin 2 tsp po every 4 Unknown 06/15/2016 100mg/5ML hrs prn Liquid [place] Saline Nasal Apply Inside 14.1units [facility], 06/13/2016 Gel Nostrils Twice Elliot, D.ORashmi Daily (Dryness) Fleet Enema [id number], 04/20/2016 On Day 3 Of Joanne Zarate D.O. 7-19GM/118ML Enema Bowel Movement By 4PM as Needed Tab-A-Boo/Iron take 1 tablet by 90tabs [facility], 03/15/2016 mouth every day Arianna Zarate Tablets (diet supplement) Ibuprofen taking 2 tabs po 100tabs Max ARashmi 09/30/2015 200mg Tablets every 4 h prn Yohannes Whitlock muscle aches or discomfort Antacid Anti-Gas Unknown 09/30/2015 [phone]/5ML Suspension Vitamin A & D ointment prn Unknown 09/30/2015 Oint Desitin prn Unknown 09/30/2015 Ointment Humira subq inj every Unknown 03/11/2015 40mg/0.8ML PSKT other week as directed [facility], 08/13/2014 Acetonide for 2 weeks Arianna Zarate 0.1% Ointment alternating with diprolene ,not to face or folds (refer to rx#[id number]) Nasal Moist Gel apply to inside of [facility], 02/02/2014 Gel nose 2 x a day # Arianna Zarate 90 day supply. Diprolene Apply To Affected 45units L40.0 [facility], 02/20/2012 0.05% Areas Twice Daily Arianna Zarate Ointment Times 2 Weeks Alternating With Triamcinolone, Not To Face Or Folds Vectical Apply To Legs 100units L40.0 [facility], 02/20/2012 3mcg/GM Twice Daily After Arianna Zarate Ointment Bath & Before Bed. (Psoriasis) Diapers Adult :Adult Medium 100units Max [facility]agg 06/27/2011 Pull-Up Due To Yohannes Whitlock Leakage Topiramate take 1 tab twice a 60tabs [facility], 06/05/2011 25mg Tablets day after meals Arianna Zarate Tylenol give 2 tablets po 60tabs Max [facility]agg 11/28/2005 325mg Tablets [id number] prn for Yohannes Whitlock pain or fever >101.0f Aspirin Low Dose take 1 tablet by 90units Miguel, 11/28/2005 81mg mouth every other Arianna Zarate Chewtabs day (prevent heart disease) Zincon Dandruff 3 x a week [facility], 1% Arianna Zarate Shampoo History Medications Xarelto One tablet by 30tabs R60.9 Kanwal Cerrato, 09/30/2019 - 15mg mouth with food MD 10/20/2019 Tablets daily I26.99 Xarelto 1 by mouth every 90tabs R60.9 Elliot Rivera, 09/05/2019 - 20mg day after 15mg D.O. 09/30/2019 Tablets tabs done after 21 days. I26.99 Xarelto 1 by mouth 2x/day Unknown 09/01/2019 - 15mg for 21 days 09/05/2019 Tablets Claritin take one tablet by 90tabs Elliot Rivera, 04/24/2019 - 10mg mouth once daily as D.O. 09/04/2019 Tablets needed for allergy symptoms Medications Administered in Office Medication SIG Qnty Indications Ordering Provider Date Toradol 15MG. Tristian Marks 09/19/2019 Injection SC/Im Injections Tristian Marks 09/19/2019 Injection Immunizations CPT Code Status Date Vaccine Lot # 61093 Given 08/15/2019 Influenza Vaccine, Inactivated, Subunit, [id number] Adjuvanted, For Intrmusc 45885 Given 06/21/2018 Influenza Vaccine Split Virus Preservative Free Im [id number] Use (hi-dose) 89244 Given 06/20/2017 Influenza Virus Vaccine, Quadrivalent, Split, [id number] Preservative Free 55765 Given 06/16/2016 Influenza Virus Vaccine, Quadrivalent, Split, [id number] Preservative Free 17709 Given 06/14/2015 Zostavax [id number] 80524 Given 06/14/2015 Influenza Virus Vaccine, Quadrivalent, Split, [id number] Preservative Free 17357 Given 06/14/2015 Prevnar 13 [id number] 66151 Given 06/11/2014 Adacel or Boostrix, TDaP [id number] 97246 Given 06/11/2014 Influenza Vaccine Split Virus Preservative Free Im [id number] Use (hi-dose) 37178 Given 07/28/2013 Flu, Split Virus 3Yrs [id number] 32651 Given 07/12/2012 Flu, Split Virus 3Yrs [id number] 84859 Given 08/22/2011 Flu, Split Virus 3Yrs [id number] 94168 Given 08/04/2010 Flu, Split Virus 3Yrs [id number] 76831 Given 09/22/2009 Flu, Split Virus 3Yrs [id number] 55821 Given 08/27/2008 Flu, Split Virus 3Yrs [id number] 10060 Given 08/29/2007 Flu, Split Virus 3Yrs [id number] 71365 Given 08/27/2006 Flu, Split Virus 3Yrs [id number] 95498 Given 03/06/2006 Pneumococcal Immunization [id number] 28695 Given 08/12/2004 Flu, Split Virus 3Yrs 06218 Given 02/10/2004 Td Immunization 58988 Given 08/01/2003 Flu, Split Virus 3Yrs Vital Signs Date Vital Result Comment 09/29/2019 10:10am BP Systolic 146 mmHg BP Diastolic 80 mmHg Height 62 inches 5'2" Weight 173.00 lb BMI (Body Mass Index) 31.6 kg/m2 Results Test Acquired Date Facility Test Result H/L Range Note CBC Auto 10/15/2019 [facility] White Blood 11.4 10^3/uL High 3.5- 10.8 Diff [phone] Count Red Blood Count 3.50 10^6/uL Low 4.18-5.48 Hemoglobin 10.0 g/dL Low 14.0-18.0 Hematocrit 30 % Low 42-52 Mean Corpuscular Volume 85 fL Normal 80-94 Mean Corpuscular Hemoglobin 29 pg Normal 27-31 Mean Corpuscular HGB Conc 34 g/dL Normal 31-36 Red Cell Distribution Width 14 % Normal 10-15 Platelet Count 331 10^3/uL Normal 150-450 Mean Platelet Volume 8.0 fL Normal 7.4-10.4 Abs Neutrophils 8.3 10^3/uL High 1.5-7.7 Abs Lymphocytes 2.0 10^3/uL Normal 1.0-4.8 Abs Monocytes 1.1 10^3/uL High 0-0.8 Abs Eosinophils 0.0 10^3/uL Normal 0-0.6 Abs Basophils 0.0 10^3/uL Normal 0-0.2 Abs Nucleated RBC 0.0 10^3/uL Granulocyte % 72.7 % Lymphocyte % 17.5 % Monocyte % 9.7 % Eosinophil % 0.0 % Basophil % 0.1 % Nucleated Red Blood Cells % 0.0 Inr/Protime 10/15/2019 [facility] Inr 1.13 High 0.82-1.09 4 [phone] Laboratory test 10/15/2019 [facility] Lactic Acid 1.3 mmol/L Normal 0.5-2.0 2 finding [phone] Ammonia 57 mcmol/L High 16-53 Urinalysis Profile 10/15/2019 [facility] Urine Color Yellow [phone] Urine Appearance Clear Urine Specific Gaines 1.016 Normal 1.010-1.030 Urine pH 6.0 Normal 5-9 Urine Urobilinogen Negative Negative Urine Ketones Negative Negative Urine Protein Negative Negative Urine Leukocytes 2+ Abnormal Negative Urine Blood Negative Negative * * Abnormal Negative 3 Urine Nitrite Negative Negative Urine Bilirubin Negative Negative Urine Glucose Negative Negative Urine White Blood Cell 3+(>20/hpf) Abnormal Absent Urine Red Blood Cell 2+(6-10/hpf) Abnormal Absent Urine Bacteria 1+ Abnormal Absent Comp Metabolic Panel 10/15/2019 [facility] Sodium 136 mmol/L Normal 135-145 [phone] Potassium 4.2 mmol/L Normal 3.5-5.0 Chloride 106 mmol/L Normal 101-111 Co2 Carbon Dioxide 25 mmol/L Normal 22-32 Anion Gap 5 mmol/L Normal 2-11 Glucose 102 mg/dL High 70-100 Blood Urea Nitrogen 31 mg/dL High 6-24 Creatinine 1.08 mg/dL Normal 0.67-1.17 BUN/Creatinine Ratio 28.7 High 8-20 Calcium 9.4 mg/dL Normal 8.6-10.3 Total Protein 7.1 g/dL Normal 6.4-8.9 Albumin 3.9 g/dL Normal 3.2-5.2 Globulin 3.2 g/dL Normal 2-4 Albumin/Globulin Ratio 1.2 Normal 1-3 Total Bilirubin 0.30 mg/dL Normal 0.2-1.0 Alkaline Phosphatase 78 U/L Normal 34-104 Alt 20 U/L Normal 7-52 Ast 21 U/L Normal 13-39 Egfr Non- 65.5 >60 Egfr 79.2 >60 4 Laboratory test 10/15/2019 [facility] Troponin-I (TnI) 0.02 ng/mL < 0.03 5 finding [phone] Acetaminophen < 15 g/mL 6 Salicylate < 2.50 mg/dL <30 TSH (Thyroid Stim Horm) 1.99 mcIU/mL Normal 0.34-5.60 Urine Drug 10/15/2019 [facility] Urine Amphetamine None Detected None Detect SCR ED & [phone] Screen Pain Clinic Urine Barbiturates Screen None Detected None Detect Urine Benzodiazepine Screen None Detected None Detect Urine Cannabinoids Screen None Detected None Detect Urine Cocaine Screen None Detected None Detect Urine Opiates Screen None Detected None Detect Urine Phencyclidine Screen None Detected None Detect 7 Urine Culture And 10/15/2019 [facility] Urine Culture SEE RESULT 8 Sensitivities [phone] BELOW Basic Metabolic 10/09/2019 [facility] Sodium 139 mmol/L Normal 135- 14 Panel [phone] Potassium 4.1 mmol/L Normal 3.5-5.0 Chloride 109 mmol/L Normal 101-111 Co2 Carbon Dioxide 26 mmol/L Normal 22-32 Anion Gap 4 mmol/L Normal 2-11 Glucose 107 mg/dL High 70-100 Blood Urea Nitrogen 35 mg/dL High 6-24 Creatinine 1.25 mg/dL High 0.67-1.17 BUN/Creatinine Ratio 28.0 High 8-20 Calcium 9.3 mg/dL Normal 8.6-10.3 Egfr Non- 55.3 >60 Egfr 66.9 >60 9 CBC Auto Diff 10/09/2019 [facility] White Blood 7.7 10^3/uL Normal 3.5-10.8 [phone] Count Red Blood Count 3.48 10^6/uL Low 4.18-5.48 Hemoglobin 10.2 g/dL Low 14.0-18.0 Hematocrit 30 % Low 42-52 Mean Corpuscular Volume 87 fL Normal 80-94 Mean Corpuscular Hemoglobin 29 pg Normal 27-31 Mean Corpuscular HGB Conc 34 g/dL Normal 31-36 Red Cell Distribution Width 14 % Normal 10-15 Platelet Count 317 10^3/uL Normal 150-450 Mean Platelet Volume 8.0 fL Normal 7.4-10.4 Abs Neutrophils 5.1 10^3/uL Normal 1.5-7.7 Abs Lymphocytes 1.8 10^3/uL Normal 1.0-4.8 Abs Monocytes 0.8 10^3/uL Normal 0-0.8 Abs Eosinophils 0.0 10^3/uL Normal 0-0.6 Abs Basophils 0.0 10^3/uL Normal 0-0.2 Abs Nucleated RBC 0.0 10^3/uL Granulocyte % 66.1 % Lymphocyte % 22.9 % Monocyte % 11.0 % Eosinophil % 0.0 % Basophil % 0.0 % Nucleated Red Blood Cells % 0.0 Laboratory test 09/20/2019 [facility] C Reactive 5.15 mg/L Normal < 8.01 finding [phone] Protein Comp Metabolic 09/20/2019 [facility] Sodium 135 mmol/L Normal 135- 145 Panel [phone] Potassium 3.7 mmol/L Normal 3.5-5.0 Chloride 106 mmol/L Normal 101-111 Co2 Carbon Dioxide 24 mmol/L Normal 22-32 Anion Gap 5 mmol/L Normal 2-11 Glucose 109 mg/dL High 70-100 Blood Urea Nitrogen 38 mg/dL High 6-24 Creatinine 1.40 mg/dL High 0.67-1.17 BUN/Creatinine Ratio 27.1 High 8-20 Calcium 9.3 mg/dL Normal 8.6-10.3 Total Protein 6.7 g/dL Normal 6.4-8.9 Albumin 3.5 g/dL Normal 3.2-5.2 Globulin 3.2 g/dL Normal 2-4 Albumin/Globulin Ratio 1.1 Normal 1-3 Total Bilirubin 0.40 mg/dL Normal 0.2-1.0 Alkaline Phosphatase 73 U/L Normal 34-104 Alt 25 U/L Normal 7-52 Ast 25 U/L Normal 13-39 Egfr Non- 48.5 >60 Egfr 58.7 >60 10 Laboratory test 09/20/2019 [facility] Partial 76.3 seconds High 26.0- 38.0 finding [phone] Thrombo Time PTT Inr/Protime 09/20/2019 [facility] Inr 1.16 High 0.82-1.09 11 [phone] CBC Auto Diff 09/20/2019 [facility] White Blood 7.2 10^3/uL Normal 3.5-10.8 [phone] Count Red Blood Count 3.70 10^6/uL Low 4.18-5.48 Hemoglobin 11.4 g/dL Low 14.0-18.0 Hematocrit 33 % Low 42-52 Mean Corpuscular Volume 89 fL Normal 80-94 Mean Corpuscular Hemoglobin 31 pg Normal 27-31 Mean Corpuscular HGB Conc 35 g/dL Normal 31-36 Red Cell Distribution Width 15 % Normal 10-15 Platelet Count 271 10^3/uL Normal 150-450 Mean Platelet Volume 8.1 fL Normal 7.4-10.4 Abs Neutrophils 4.6 10^3/uL Normal 1.5-7.7 Abs Lymphocytes 1.7 10^3/uL Normal 1.0-4.8 Abs Monocytes 0.8 10^3/uL Normal 0-0.8 Abs Eosinophils 0.0 10^3/uL Normal 0-0.6 Abs Basophils 0.0 10^3/uL Normal 0-0.2 Abs Nucleated RBC 0.0 10^3/uL Granulocyte % 64.8 % Lymphocyte % 24.0 % Monocyte % 11.1 % Eosinophil % 0.0 % Basophil % 0.1 % Nucleated Red Blood Cells % 0.1 Basic Metabolic Panel 09/03/2019 [facility] Sodium 135 mmol/L Normal 135-145 [phone] Potassium 4.4 mmol/L Normal 3.5-5.0 Chloride 105 mmol/L Normal 101-111 Co2 Carbon Dioxide 26 mmol/L Normal 22-32 Anion Gap 4 mmol/L Normal 2-11 Glucose 88 mg/dL Normal 70-100 Blood Urea Nitrogen 29 mg/dL High 6-24 Creatinine 1.15 mg/dL Normal 0.67-1.17 BUN/Creatinine Ratio 25.2 High 8-20 Calcium 9.5 mg/dL Normal 8.6-10.3 Egfr Non- 60.9 >60 Egfr 73.7 >60 12 CBC Auto Diff 09/03/2019 [facility] White Blood 7.7 10^3/uL Normal 3.5-10.8 [phone] Count Red Blood Count 4.94 10^6/uL Normal [...] Blood Cells % 0.0 Urinalysis Profile 09/03/2019 [facility] Urine Color Yellow [phone] Urine Appearance Cloudy Urine Specific Gaines 1.014 Normal 1.010-1.030 Urine pH 6.0 Normal [...] Bacteria Absent Absent Urine Culture And 09/03/2019 [facility] Urine Culture SEE RESULT 13 Sensitivities [phone] BELOW Inr/Protime 09/03/2019 [facility] Inr 1.55 High 0.82- 14 [phone] 1.09 CBC Auto Diff 08/30/2019 [facility] White Blood 7.7 10^3/uL Normal 3.5-8 [phone] Count 0.8 Red Blood Count 5.03 10^6/uL Normal 4.18-5.48 [...] Cells % 0.1 Comp Metabolic Panel 08/30/2019 [facility] Sodium 135 mmol/L Normal 135-145 [phone] Potassium 4.6 mmol/L Normal 3.5-5.0 Chloride 107 [...] Egfr Non- 63.4 >60 Egfr 76.7 >60 15 Laboratory test 08/30/2019 [facility] Troponin-I (TnI) 0.01 ng/mL < 0.04 16 finding [phone] D Dimer Quantitative 356 ng/mL High Less Than 230 17 TSH (Thyroid Stim Horm) 2.17 mcIU/mL Normal 0.34-5.60 B-Type Natriuretic Peptide BNP 54 pg/mL <=100 CBC Auto Diff 07/31/2019 [facility] White Blood 6.9 10^3/uL Normal 3.5-10.8 [phone] Count Red Blood Count 5.27 10^6/uL Normal [...] Cells % 0.0 Comp Metabolic Panel 07/31/2019 [facility] Sodium 135 mmol/L Normal 135-145 [phone] Potassium 4.3 mmol/L Normal 3.5-5.0 Chloride 106 [...] Egfr Non- 58.5 >60 Egfr 70.8 >60 18 Laboratory test 07/31/2019 [facility] TSH (Thyroid 3.99 mcIU/mL Normal 0.34-5.60 finding [phone] Stim Horm) CBC Auto Diff 05/13/2019 [facility] White Blood 6.9 10^3/uL Normal 3.5-10.8 [phone] Count Red Blood Count 5.09 10^6/uL Normal [...] Cells % 0.1 Comp Metabolic Panel 05/13/2019 [facility] Sodium 136 mmol/L Normal 135-145 [phone] Potassium 4.2 mmol/L Normal 3.5-5.0 Chloride 105 [...] Egfr Non- 56.9 >60 Egfr 68.8 >60 19 1 Standard intensity warfarin therapeutic range: 2.0-3.0 High intensity warfarin therapeutic range: 2.5-3.5 2 [place] Severe Sepsis and Septic Shock Management Bundle Measure requires all lactic acids initially measuring >2.0 mmol/L be repeated. 3 *Ascorbic acid is present which may interfere with detection of blood. 4 Because ethnic data is not always [...] immediately to secondary confirmatory testing. Using the [employer] DxI 800 Access Immunoassay systems, the 99th percentile upper reference limit was demonstrated to be < 0.03 ng/mL. 6 Therapeutic concentration: <50 ug/mL Toxic concentration: >120 ug/mL 7 The urine specimen was tested at the listed cutoffs: Drug class test level (ng/mL) Amphetamines 500 Barbiturates 200 Benzodiazepine metabolites 200 Cocaine metabolites 150 Cannabinoids 50 Opiates 300 Pcp 25 Specimen was received without chain of custody. Results should be used for medical purposes only. 8 SEE RESULT BELOW Name: LEYLA CARRANZA : [address]: Myra Hsu MD Acct: [id number] Unit: [id number] AGE: 84 Location: ED Re10/15/19 SEX: M Status: DEP ER SPEC: [id number] LAVERN: 10/15/[address] [facility] [address]: Myra Hsu MD REQ: [id number] RECD: 10/15/19 STATUS: SHAHEED SOLANO DR: Elliot Rivera DO _ SOURCE: URINE SPDESC: ORDERED: Urine Culture Procedure Result Reported Site Urine Culture Final 10/17/19- 0946 ML No Growth (<1,000 CFU/mL) * ML - Main Lab . END OF REPORT DEPARTMENT OF PATHOLOGY, [address] [place] [address] Jeronimo Santos M.D. Director [facility] # [id number] 9 Because ethnic data is not always readily [...] 15-29 5 Kidney failure <15 (or dialysis) 10 Because ethnic data is not always [...] 5 Kidney failure <15 (or dialysis) 11 Standard intensity warfarin therapeutic range: 2.0-3.0 High intensity warfarin therapeutic range: 2.5-3.5 12 Because ethnic data is not always [...] 5 Kidney failure <15 (or dialysis) 13 SEE RESULT BELOW Name: LEYLA CARRANZA : [address]: Jesus Hidalgo MD Acct: [id number] Unit: [id number] AGE: 84 Location: ED Re09/03/19 SEX: M Status: DEP ER SPEC: [id number] LAVERN: 09/03/19-[address] [facility] [address]: Jesus Hidalgo MD REQ: [id number] RECD: 09/03/19 STATUS: SHAHEED SOLANO DR: [facility] Elliot Rivera DO _ SOURCE: URINE SPDESC: ORDERED: Urine Culture Procedure Result Reported Site Urine Culture Final 09/04/19- 1116 ML No Growth (<1,000 CFU/mL) * ML - Main Lab . END OF REPORT DEPARTMENT OF PATHOLOGY, [address] [place] [address] Jeronimo Santos M.D. Director [facility] # [id number] 14 Standard intensity warfarin therapeutic range: 2.0-3.0 High intensity warfarin therapeutic range: 2.5-3.5 15 Because ethnic data is not always [...] 5 Kidney failure <15 (or dialysis) 16 Troponin-I testing on Plasma Separator Tubes (PST) has a known false positive rate of 0.20-0.40%. All positive troponins reflex immediately to secondary confirmatory testing. Using the [employer] DxI 800 Access Immunoassay systems, the 99th percentile upper reference limit was demonstrated to be < 0.03 ng/mL. 17 Please note: The following may produce a false positive D Dimer test: - Rheumatoid factor greater than 60 IU/ml - Plasma hemoglobin greater than 0.05 gm/dl - Bilirubin greater than 50 mg/dl - Lipids greater than 1000 mg/dl - FDP greater than 20 ug/ml 18 Because ethnic data is not always [...] 5 Kidney failure <15 (or dialysis) 19 Because ethnic data is not always readily [...] dialysis) Procedures Date Code Description Status 09/19/2019 51107 SC/Im Injections Completed 09/14/2006 79392108 Colonoscopy Completed Medical Devices Description No Information Available Encounters Type Date Location Provider Dx Diagnosis Office Visit 10/21/2019 Main Office Kanwal Cerrato MD D64.9 Anemia, unspecified 9:30a N39.0 Urinary tract infection, site not specified Office Visit 09/29/2019 9:45a Main Office Kanwal Cerrato Z01.818 Encounter for vielka Owusu MD preprocedural examination 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 hernia, w obst, w/o gangr, not spcf as recur R60.0 Localized edema R45.1 Restlessness and agitation F73 Profound intellectual disabilities Office Visit 09/05/2019 2:30p Main Office Elliot Rivera, I26.99 Other pulmonary D.O. embolism without acute cor pulmonale R60.9 Edema, unspecified K40.30 Unil inguinal hernia, w obst, w/o gangr, not spcf as recur I10 Essential (primary) hypertension I73.9 Peripheral vascular disease, unspecified R01.1 Cardiac murmur, unspecified E03.9 Hypothyroidism, unspecified L40.0 Psoriasis vulgaris R06.02 Shortness of breath Office Visit 08/29/2019 4:30p Main Office Elliot Rivera, R60.9 Edema, unspecified D.O. K40.30 Unil inguinal [...] Office Visit 05/13/2019 10:40a Main Office Marga Gume, K40.30 Unil inguinal P.A. hernia, w obst, w/o gangr, not spcf as recur I10 Essential (primary) hypertension I73.9 Peripheral vascular disease, unspecified Assessments Date Code Description Provider 10/21/2019 D64.9 Anemia, unspecified Kanwal Cerrato MD 10/21/2019 N39.0 Urinary tract infection, site not specified Kanwal Cerrato MD 09/29/2019 Z01.818 Encounter for other preprocedural Kanwal Cerrato MD examination 09/29/2019 Z79.01 [facility] (current) use of anticoagulants Kanwal Cerrato MD 09/29/2019 E03.9 Hypothyroidism, unspecified Kanwal Cerrato MD 09/29/2019 F73 Profound intellectual disabilities Kanwal Cerrato MD 09/29/2019 Z86.711 Personal history of pulmonary embolism Kanwal Cerrato MD 09/19/2019 K40.30 Unilateral inguinal hernia, with Marga Stanton, P.A. obstruction, without gangrene, not specified as recurrent 09/19/2019 R60.0 Localized edema Marga Stanton, P.A. 09/19/2019 R45.1 Restlessness and agitation Marga Dunaway, P.A. 09/19/2019 F73 Profound intellectual disabilities Marga Dunaway, P.A. 09/05/2019 I26.99 Other pulmonary embolism without acute cor Elliot Rivera D.O. pulmonale 09/05/2019 R60.9 Edema, unspecified Sopchak, Elliot, D.O. 09/05/2019 K40.30 Unilateral inguinal hernia, with SopcarmenkElliot, D.O. obstruction, without gangrene, not specified as recurrent 09/05/2019 I10 Essential (primary) hypertension Elliot Rivera D.O. 09/05/2019 I73.9 Peripheral vascular disease, unspecified LocokElliot, D.O. 09/05/2019 R01.1 Cardiac murmur, unspecified LocokRashmion, D.O. 09/05/2019 E03.9 Hypothyroidism, unspecified SopchakRashmion, D.O. 09/05/2019 L40.0 Psoriasis vulgaris lEliot Rivera D.O. 09/05/2019 R06.02 Shortness of breath Elliot Rivera D.O. 08/29/2019 R60.9 Edema, unspecified Sopchak, Elliot, D.O. 08/29/2019 K40.30 Unilateral inguinal hernia, with SopcarmenkElliot, D.O. obstruction, without gangrene, not specified as recurrent 08/29/2019 I10 Essential (primary) hypertension Elliot Rivera D.O. 08/29/2019 I73.9 Peripheral vascular disease, unspecified Elliot Rivera D.O. 08/29/2019 R01.1 Cardiac murmur, unspecified Elliot Rivera D.O. 08/29/2019 E03.9 Hypothyroidism, unspecified Elliot Rivera D.O. 08/29/2019 L40.0 Psoriasis vulgaris Elliot Rivera D.O. 08/29/2019 R06.02 Shortness of breath Elliot Rivera D.O. 08/15/2019 Z23 Encounter for immunization Nurse's [...] D.O. 07/22/2019 E03.9 Hypothyroidism, unspecified Elliot Rivera DRashmiO. 07/22/2019 L40.0 Psoriasis vulgaris Elliot Rivera D.O. [...] Rivera D.O. 05/15/2019 R60.9 Edema, unspecified Elliot Rivera D.O. 05/13/2019 K40.30 Unilateral inguinal hernia, with Marga Stanton, P.A. obstruction, without gangrene, not specified as recurrent 05/13/2019 I10 Essential (primary) hypertension Marga Dunaway P.A. 05/13/2019 I73.9 Peripheral vascular disease, unspecified Marga Stanton, P.A. Plan of Treatment Future Appointment(s):07/23/2020 3:30 pm - Elliot Rivera D.O. at [facility]/19/2019 - Marga Dunaway P.A.K40.30 Unilateral inguinal hernia, with obstruction, without gangrene, not specified as recurrentComments:discussed case with Dr. Rivera who is more familiar with Primo's condition, who agreed pt should togo to the ED. Called ED and reported that we were sending him there was a staff member. Spoke wR60.0 Localized [id number] Restlessness and [id number] Profound intellectual disabilities Functional Status Description No Information Available Mental Status Description No Information Available Referrals Refer to Reason for Referral Status Appt Date [facility] Hearing evaluation. Consult and Treat [place] [address] [phone]
--- NOTE | 2019-11-26 08:29 | ED ---
Complex/Multi-Sys Presentation - HPI Summary HPI Summary: This patient is an 84 year old male accompanied by a jail staff member presenting to [facility] with a chief complaint of altered mental status. She states he would not get out of bed this morning when he normally would, he is not as loud as he normally is, and he is congested. - History Of Current Complaint Chief Complaint: EDFluSymptoms Time Seen by Provider: 11/26/19 08:17 Hx Obtained From: Patient Onset/Duration: Lasting Hours - Allergies/Home Medications Allergies/Adverse Reactions: Allergies Allergy/AdvReac Type Severity Reaction Status Date / Time amoxicillin [From Augmentin] Allergy Unknown Verified 10/15/19 20:30 Reaction Details clavulanic acid Allergy Unknown Verified 10/15/19 20:30 [From Augmentin] Reaction Details Home Medications: Home Medications Al Hydrox/Mg Hydrox/Simet LIQ* [Maalox Plus*] 10 ml PO TID PRN MDD 8 tsp [History Confirmed 11/26/19] Calcitriol [Vectical] 1 applic TOPICAL BID 11/26/19 [History Confirmed 11/26/19] Ceramides 1,3,6-11 [Cerave] 1 applic TOPICAL BID 11/26/19 [History Confirmed 10/03] [place] Tar [Tarsum Professional] 1 applic TOPICAL DAILY 11/26/19 [History Confirmed 11/26/19] Rivaroxaban TAB(*) [Xarelto 20 mg] 20 mg PO DAILY 11/26/19 [History Confirmed ] Saline NASAL SPRAY 0.65%* [Sodium Chloride 0.65% Nasal [place]*] 1 spray BOTH NARES DAILY PRN 11/26/19 [History Confirmed 11/26/19] Sodium Chloride/Aloe Vera [[place] Saline Nasal] 1 applic BOTH NARES BID 11/26/19 [ History Confirmed 11/26/19] Sulfamethox/Trimethoprim DS* [Bactrim DS 800/160 TAB*] 1 tab PO BID 11/26/19 [ History Confirmed 11/26/19] Zincon 1% Shampoo 1 applic TOPICAL .3X/WEEK 11/26/19 [History Confirmed 11/26/19 ] clonazePAM [Clonazepam Odt] 0.25 mg PO ONCE 11/26/19 [History Confirmed 11/26/19 ] PMH/Surg Hx/FS Hx/Imm Hx Endocrine/Hematology History: Reports: Hx Thyroid Disease - hypo Denies: Hx Diabetes Cardiovascular History: Reports: Hx Hypertension Respiratory History: Denies: Hx Asthma, Hx Chronic Obstructive Pulmonary Disease (COPD) GI History: Reports: Other GI Disorders - chronic constipation Denies: Hx Ulcer History: Reports: Other Problems/Disorders - Bilateral inguinal hernia Sensory History: Reports: Hx Cataracts - BILAT Denies: Hx Contacts or Glasses, Hx Hearing Aid Opthamlomology History: Reports: Hx Cataracts - BILAT Denies: Hx Contacts or Glasses Neurological History: Reports: Hx Developmental Delay, Other Neuro Impairments/ Disorders - [place] Palsy Psychiatric History: Reports: Hx Anxiety - excessive, 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 - Surgical History Hx Anesthesia Reactions: No - UNKNOWN - Immunization History Date of Tetanus Vaccine: utd Date of Influenza Vaccine: utd Infectious Disease History: No Infectious Disease History: 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 Denies: Hx Clostridium Difficile, Hx Hepatitis, Hx Human Immunodeficiency Virus (HIV), Hx of Known/Suspected MRSA, Hx Shingles, Hx Known/Suspected VRE, Hx Known/Suspected VRSA, History Other Infectious Disease, Traveled Outside the [place] in Last 30 Days - Family History Known Family History: Positive: Unknown - LEVEL 5 CAVEAT secondary to MR - Social History Alcohol Use: None Hx Substance Use: No Substance Use Type: Reports: None Hx Tobacco Use: No Smoking Status (MU): Never Smoked Tobacco Review of Systems Positive: Other - congestion Neurological/Mental Status: Other - Altered Mental Status All Other Systems Reviewed And Are Negative: Yes Physical Exam - Summary Physical Exam Summary: Constitutional: Well-developed, Well-nourished, Alert. (-) Distressed Skin: Warm, Dry HENT: Normocephalic; Atraumatic Eyes: Conjunctiva normal Neck: Musculoskeletal ROM normal neck. (-) JVD, (-) Stridor, (-) Tracheal deviation Cardio: Rhythm regular, rate normal, Heart sounds normal; Intact distal pulses; The pedal pulses are 2+ and symmetric. Radial pulses are 2+ and symmetric. (-) Murmur Pulmonary/Chest wall: Effort normal. (-) Respiratory distress, (-) Wheezes, (-) Rales Abd: Soft, (-) tenderness, (-) Distension, (-) Guarding, (-) Rebound Musculoskeletal: (-) Edema Lymph: (-) Cervical adenopathy Neuro: Alert, Oriented x3 Psych: Mood and affect Normal Triage Information Reviewed: Yes Vital Signs On Initial Exam: Initial Vitals Temp Pulse Resp BP Pulse Ox 97.7 F 73 18 138/116 96 11/26/19 07:57 11/26/19 07:57 11/26/19 07:57 11/26/19 07:57 11/26/19 07:57 Vital Signs Reviewed: Yes Procedures - Sedation Patient Received Moderate/Deep Sedation with Procedure: No Diagnostics - Vital Signs Vital Signs Temp Pulse Resp BP Pulse Ox 11/26/19 07:57 97.7 F 73 18 138/116 96 - Laboratory Lab Results: Lab Results 11/26/19 Range/Units 08:00 Influenza A (Rapid) Pending Influenza B (Rapid) Pending Lab Statement: Any lab studies that have been ordered have been reviewed, and results considered in the medical decision making process. - Radiology CXR Radiology Interpretation Completed By: Radiologist Summary of Radiographic Findings: Low lung volumes, small basilar infiltrates most consistent with atelectasis or pneumonia. ED Provider has reviewed this report. Complex Multi-Symp Course/Dx Course Of Treatment: Patient is here with slight lethargy and runny nose. Patient is nonverbal at baseline sway history was hard to obtain. Her been no other symptoms per staff including no fever. Patient had a rapid influenza which is negative. Patient chest x-ray which showed atelectasis versus infiltrate. Given patient's nonverbal status and difficult to obtain history, patient was started on doxycycline for pneumonia. - Diagnoses Provider Diagnoses: Pneumonia Discharge ED - Sign-Out/Discharge Documenting (check all that apply): Patient Departure - discharge - Discharge Plan Condition: Stable Disposition: HOME Prescriptions: DOXYcycline CAP(*) [DOXYcycline 100MG CAP(*)] 100 mg PO BID 5 Days #10 cap Patient Education Materials: Pneumonia (ED) Referrals: Elliot Rivera DO [Primary Care Provider] - Additional Instructions: Take antibiotics as prescribed. Come back with difficulty breathing, high fevers. - Billing Disposition and Condition Condition: STABLE Disposition: Home - Attestation Statements Document Initiated by Scribe: Yes Documenting Scribe: Max Ford Provider For Whom Scribe is Documenting (Include Credential): Westley Dawson MD Scribe Attestation: I, Max Ford, scribed for Westley Dawson MD on 11/26/19 at 1051. Scribe Documentation Reviewed: Yes Provider Attestation: The documentation as recorded by the lisaibgurmeet, Max Ford accurately reflects the service I personally performed and the decisions made by me, Westley Dawson MD Status of Scribe Document: Viewed
[2019-11-26 08:34] LABS: Influenza A Molecular Negative (Negative); Influenza B Molecular Negative (Negative)
[2019-11-26 09:53] VITALS: BP 95/73
== END 2019-11-26 09:52 | disposition home or self-care (01) ==
LOC: ED 07:48
DX: J18.9 Pneumonia, unspecified organism (principal); R41.82 Altered mental status, unspecified; I10 Essential (primary) hypertension; Z79.01 Long term (current) use of anticoagulants; Z88.1 Allergy status to other antibiotic agents; Z88.0 Allergy status to penicillin
CPT/HCPCS: 71045; 99282

== ENCOUNTER 2019-12-18 09:44 | Emergency (ER) | payer MEDICARE, MEDICAID ==
--- NOTE | 2019-12-18 10:15 | ED ---
Complex/Multi-Sys Presentation - HPI Summary HPI Summary: Patient is an 84 y/o M presenting to the ED to rule out a possible TN. Patient is present with a x ray developing machine operator who is speaking for the patient, as he is nonverbal. Per x ray developing machine operator, patient has no complaints, including fever or myalgia. Patient was sent to [facility] by his PCP, Dr. Kanwal Cerrato at [facility], after having an EKG on 12/17/19 with abnormal findings. Patient saw his PCP for a pre-op clearance for an upcoming inguinal hernia repair. Patent is able to ambulate at baseline, which is unchanged. - History Of Current Complaint Chief Complaint: EDChestPainROMI Time Seen by Provider: 12/18/19 10:02 Hx Obtained From: Family/Sales Market Leader - Sales Market Leader Onset/Duration: Sudden Onset, Still Present Timing: Constant Severity Currently: Moderate Severity Initially: Moderate Aggravating Factor(s): Nothing Alleviating Factor(s): Nothing Associated Signs And Symptoms: Negative: Fever - Allergies/Home Medications Allergies/Adverse Reactions: Allergies Allergy/AdvReac Type Severity Reaction Status Date / Time amoxicillin [From Augmentin] Allergy Unknown Verified 10/15/19 20:30 Reaction Details clavulanic acid Allergy Unknown Verified 10/15/19 20:30 [From Augmentin] Reaction Details Home Medications: Home Medications LoraTADine TAB(NF) [Claritin 10 MG TAB(NF)] 10 mg PO DAILY 07/22/12 [History Confirmed 11/26/19] Topiramate TAB(*) [Topamax 25 MG tab] 25 mg PO BID 07/22/12 [History Confirmed 11/26/19] Triamcinolone 0.1% OINT(NF) [Kenolog 0.1% OINT(NF)] 1 applic TOPICAL BID [History Confirmed 11/26/19] chlorproMAZINE TAB* [Thorazine 25 MG TAB*] 25 mg PO QPM 07/22/12 [History Confirmed 11/26/19] Ibuprofen TAB* [Advil TAB*] 400 mg PO Q6H PRN 08/17/15 [History Confirmed ] Acetaminophen TAB* [Tylenol TAB*] 650 mg PO Q4H PRN 04/14/18 [History Confirmed 11/26/19] Bisacodyl [Dulcolax] 15 mg PO Q2D PRN 04/14/18 [History Confirmed 11/26/19] Sodium Phosphate ADULT ENEMA* [Fleet Enema*] 1 enema ID Q3D PRN 04/14/18 [ History Confirmed 11/26/19] guaiFENesin 100 mg/5 ml LIQ [Robitussin 100 mg/5ml LIQ] 10 ml PO Q4H PRN [History Confirmed 11/26/19] Metoprolol Tartrate TAB* [Lopressor TAB*] 25 mg PO BID #60 tab 04/18/18 [Rx Confirmed 11/26/19] Tamsulosin CAP* [Flomax CAP*] 0.4 mg PO DAILY #30 cap 04/18/18 [Rx Confirmed 10/03] Betamethasone Dip 0.05% ON(NF) [Betamethasone Dipr 0.05% OINT(NF)] 1 applic TOPICAL BID 06/04/18 [History Confirmed 11/26/19] Chlorhexidine MOUTHWASH 0.12%* [Peridex Mouth Wash 0.12%*] 5 ml MT BID 06/04/18 [History Confirmed 11/26/19] Docusate CAP* [Colace Cap*] 200 mg PO BID 06/04/18 [History Confirmed 11/26/19] Levothyroxine TAB* [Synthroid TAB*] 50 mcg PO DAILY 06/04/18 [History Confirmed 11/26/19] clonazePAM TAB(*) [Klonopin TAB(*)] 0.25 mg PO QAM MDD 0.75mg 06/04/18 [History Confirmed 11/26/19] clonazePAM TAB(*) [Klonopin TAB(*)] 0.5 mg PO BEDTIME MDD 0.75mg 06/04/18 [ History Confirmed 11/26/19] Adalimumab (NF) [Humira Pen (NF)] 40 mg SUBCUT .EVERY OTHER WEEK 05/13/19 [ History Confirmed 11/26/19] Aspirin EC TAB* [Ecotrin EC Low Dose 81 MG*] 81 mg PO EVERY OTHER DAY 05/13/19 [ History Confirmed 11/26/19] Cholecalciferol (Vitamin D3) [Vitamin D3] 5,000 unit PO DAILY 05/13/19 [History Confirmed 11/26/19] Finasteride TAB* [Proscar TAB*] 5 mg PO DAILY 05/13/19 [History Confirmed ] Hydrocortisone Valerate 1 applic TOPICAL BID 05/13/19 [History Confirmed ] Lactulose* 30 ml PO DAILY PRN 05/13/19 [History Confirmed 11/26/19] Polyethylene Glycol 3350* [Miralax (17 GM DOSE FELI)] 17 gm PO DAILY 05/13/19 [ History Confirmed 11/26/19] Propylene Glycol/Peg 400/Pf [Systane 0.3-0.4% Eye Drop] 1 drop BOTH EYES Q4HR PRN 05/13/19 [History Confirmed 11/26/19] Vitamins A & D OINT* [Vitamin A & D Oint*] 1 applic TOPICAL BID PRN 05/13/19 [ History Confirmed 11/26/19] Zinc Oxide [Desitin] 13 % TOPICAL TID PRN 05/13/19 [History Confirmed 11/26/19] Atorvastatin* [Lipitor 80 MG*] 80 mg PO DAILY 10/15/19 [History Confirmed ] Bacitracin OINTMENT* 1 applic TOPICAL BID 10/15/19 [History Confirmed 11/26/19] Al Hydrox/Mg Hydrox/Simet LIQ* [Maalox Plus*] 10 ml PO TID PRN MDD 8 tsp [History Confirmed 11/26/19] Calcitriol [Vectical] 1 applic TOPICAL BID 11/26/19 [History Confirmed 11/26/19] Ceramides 1,3,6-11 [Cerave] 1 applic TOPICAL BID 11/26/19 [History Confirmed 10/03] Will Tar [Tarsum Professional] 1 applic TOPICAL DAILY 11/26/19 [History Confirmed 11/26/19] DOXYcycline CAP(*) [DOXYcycline 100MG CAP(*)] 100 mg PO BID 5 Days #10 cap 11/26 [Rx] Rivaroxaban TAB(*) [Xarelto 20 mg] 20 mg PO DAILY 11/26/19 [History Confirmed ] Saline NASAL SPRAY 0.65%* [Sodium Chloride 0.65% Nasal [place]*] 1 spray BOTH NARES DAILY PRN 11/26/19 [History Confirmed 11/26/19] Sodium Chloride/Aloe Vera [[place] Saline Nasal] 1 applic BOTH NARES BID 11/26/19 [ History Confirmed 11/26/19] Sulfamethox/Trimethoprim DS* [Bactrim DS 800/160 TAB*] 1 tab PO BID 11/26/19 [ History Confirmed 11/26/19] Zincon 1% Shampoo 1 applic TOPICAL .3X/WEEK 11/26/19 [History Confirmed 11/26/19 ] clonazePAM [Clonazepam Odt] 0.25 mg PO ONCE 11/26/19 [History Confirmed 11/26/19 ] PMH/Surg Hx/FS Hx/Imm Hx Previously Healthy: Yes Endocrine/Hematology History: Reports: Hx Thyroid Disease - hypo Denies: Hx Diabetes Cardiovascular History: Reports: Hx Hypertension Respiratory History: Denies: Hx Asthma, Hx Chronic Obstructive Pulmonary Disease (COPD) GI History: Reports: Other GI Disorders - chronic constipation Denies: Hx Ulcer History: Reports: Other Problems/Disorders - Bilateral inguinal hernia Sensory History: Reports: Hx Cataracts - BILAT Denies: Hx Contacts or Glasses, Hx Legally Blind, Hx Deafness, Hx Hearing Aid Opthamlomology History: Reports: Hx Cataracts - BILAT Denies: Hx Contacts or Glasses, Hx Legally Blind EENT History: Denies: Hx Deafness Neurological History: Reports: Hx Developmental Delay, Other Neuro Impairments/ Disorders - [place] Palsy Psychiatric History: Reports: Hx Anxiety - excessive, 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 - Surgical History Surgical History: None Surgery Procedure, Year, and Place: None Hx Anesthesia Reactions: No - UNKNOWN - Immunization History Date of Tetanus Vaccine: utd Date of Influenza Vaccine: utd Infectious Disease History: Yes Infectious Disease History: 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 Denies: Hx Clostridium Difficile, Hx Hepatitis, Hx Human Immunodeficiency Virus (HIV), Hx of Known/Suspected MRSA, Hx Shingles, Hx Known/Suspected VRE, Hx Known/Suspected VRSA, History Other Infectious Disease, Traveled Outside the [place] in Last 30 Days - Family History Known Family History: Negative: Hypertension, Diabetes - Social History Occupation: Disabled Lives: Assisted Living Alcohol Use: None Hx Substance Use: No Substance Use Type: Reports: None Hx Tobacco Use: No Smoking Status (MU): Never Smoked Tobacco Review of Systems Negative: Fever Negative: Myalgia All Other Systems Reviewed And Are Negative: Yes Physical Exam - Summary Physical Exam Summary: Constitutional: Well-developed, Well-nourished, Alert. (-) Distressed Skin: Warm, Dry HENT: Normocephalic; Atraumatic Eyes: Conjunctiva normal Neck: Musculoskeletal ROM normal neck. (-) JVD, (-) Stridor, (-) Tracheal deviation Cardio: Rhythm regular, rate normal, Heart sounds normal; Intact distal pulses; The pedal pulses are 2+ and symmetric. Radial pulses are 2+ and symmetric. Pulmonary/Chest wall: Effort normal. (-) Respiratory distress, (-) Wheezes, (-) Rales Abd: Soft, (-) tenderness, (-) Distension, (-) Guarding, (-) Rebound. Right palpable inguinal hernia that is soft and non-tender. Musculoskeletal: (-) Edema Neuro: Alert, Oriented x3 Psych: Mood and affect Normal Triage Information Reviewed: Yes Vital Signs On Initial Exam: Initial Vitals Temp Pulse Resp BP Pulse Ox 97.0 F 64 18 164/92 99 12/18/19 09:57 12/18/19 09:57 12/18/19 09:57 12/18/19 09:57 12/18/19 09:57 Vital Signs Reviewed: Yes Procedures - Sedation Patient Received Moderate/Deep Sedation with Procedure: No Diagnostics - Vital Signs Vital Signs Temp Pulse Resp BP Pulse Ox 12/18/19 09:57 97.0 F 64 18 164/92 99 - Laboratory Result Diagrams: 12/18/19 10:19 12/18/19 10:19 Lab Statement: Any lab studies that have been ordered have been reviewed, and results considered in the medical decision making process. - Radiology Chest X-ray Radiology Interpretation Completed By: Radiologist Summary of Radiographic Findings: Chest X-ray IMPRESSION: #. Limited hypoventilated exam with subsegmental atelectasis. No compelling evidence for pneumonia or pulmonary edema. Reviewed by Dr. Grimes. - EKG 09:51 Cardiac Rate: NL - 61 BPM EKG Rhythm: Sinus Rhythm ST Segment: Normal Ectopy: None Summary of EKG Findings: An EKG at 09:51 reveals normal sinus rhythm with 61 BPM , interior Q waves which are old, lateral T wave abnormality in V4, V5, and V6 which are new and aVL which is old, nml axis, nml intervals. No STEMI. Reviewed and interpreted by Dr. Grimes. Complex Multi-Symp Course/Dx Course Of Treatment: Patient is an 84 y/o M presenting to the ED to rule out a possible TN. Patient is present with a x ray developing machine operator who is speaking for the patient , as he is nonverbal. Per x ray developing machine operator, patient has no complaints, including fever or myalgia. Patient was sent to [facility] by his PCP, Dr. Kanwal Cerrato at [facility], after having an EKG on 12/17/19 with abnormal findings. Patient saw his PCP for a pre-op clearance for an upcoming inguinal hernia repair. Patent is able to ambulate at baseline, which is unchanged. On exam, right palpable inguinal hernia that is soft and non-tender. No distress, breathing comfortably. All other abnormal lab results are not pertinent to current cc. An EKG at 09:51 reveals normal sinus rhythm with 61 BPM, interior Q waves which are old, lateral T wave abnormality in V4, V5, and V6 which are new and aVL which is old, nml axis, nml intervals. No STEMI. Chest X-ray IMPRESSION: #. Limited hypoventilated exam with subsegmental atelectasis. No compelling evidence for pneumonia or pulmonary edema. Patient will be discharged with a diagnosis of EKG abnormality. Follow up with PCP in 2-3 days. - Diagnoses Provider Diagnoses: EKG abnormality Discharge ED - Sign-Out/Discharge Documenting (check all that apply): Patient Departure - Discharge - Discharge Plan Condition: Stable Disposition: HOME Patient Education Materials: Inguinal Hernia (ED) Referrals: Elliot Rivera DO [Primary Care Provider] - Additional Instructions: RETURN TO THE EMERGENCY DEPARTMENT FOR CHANGING OR WORSENING SYMPTOMS. Follow up with your primary care physician in 2-3 days. - Billing Disposition and Condition Condition: STABLE Disposition: Home - Attestation Statements Document Initiated by Scribe: Yes Documenting Scribe: Elana Butts Provider For Whom Hernandez is Documenting (Include Credential): Bj Grimes MD Scribe Attestation: Elana Lang scribed for Bj Grimes MD on 12/18/19 at 1854. Scribe Documentation Reviewed: Yes Provider Attestation: The documentation as recorded by the Elana olmstead accurately reflects the service I personally performed and the decisions made by me, Bj Grimes MD Status of Scribe Document: Viewed
--- OUTSIDE RECORDS SUMMARY | 2019-12-18 10:18 | XMS REPORT | Continuity of Care Document ---
:1935 External Reference #:[id number] Author Name Nurse's Schedule (transmitted by agent of provider Carolyn Oliva) Address [address] [place] [address] Care Team Providers Name Role Phone Ben Thompson MD - Care Team Information Business Services Representative [phone] Otolaryngology Miguelito Mejia MD - Internal Care Team Information Business Services Representative [phone] [facility] - Surgery Care Team Information Business Services Representative Problems Active Problems Provider Date Hypothyroidism Max Whitlock M.D. Onset: 02/10/2004 Allergic rhinitis due to pollen Max Whitlock M.D. Onset: 02/10/2004 Benign prostatic hypertrophy without Max Whitlock M.D. Onset: 2006 outflow obstruction Constipation Max Whitlock M.D. Onset: 07/01/2007 Psoriasis Max Whitlock M.D. Onset: 01/11/2004 Profound intellectual disability aMx Whitlock M.D. Onset: 02/10/2004 Jain's palsy Elliot [...] Peripheral vascular disease Tristian Marks Onset: 05/13/2019 Social History Type Date Description Comments Sex Unknown Tobacco Use Start: Unknown Denies Cigarette Use Tobacco Use Reviewed: 07/04/11 Tobacco Of Any Kind Denies Use Smoking Status Reviewed: 12/02/19 Tobacco Of Any Kind Denies Use ETOH Use Denies alcohol use Tobacco Use Start: Unknown Non Smoker / No Tobacco Exercise Type/Frequency Exercises sporadically Allergies, Adverse Reactions, Alerts Active Allergies Reaction Severity Comments Date Augmentin REACTION UNKNOWN WAS ON FILE ON ADM TO 03/02/[address] Medications Active Medications SIG Qnty Indications Ordering Date Provider Calcipotriene apply to affected 60units L40.0 [facility], 12/16/2019 0.005% legs twice a day Hailey Zarate.O. Cream after bath for relief of psoriasis Peg 3350 1 Capful 510units K59.03 [facility], 11/14/2019 Powder (17GM=20cc) 8 Oz Elliot, D.O. Of Fluid By Mouth Every Day Hold For > 3 Stools/Day/Diarrhe a (Constipation)*Not reid internal review and audit compliance When Held Enulose give 2 tablespoon 946units [facility], 09/29/2019 10GM/15ML (30cc) by mouth Elliot D.O. Solution every day (constipation) hold for >3 bm per day or diarrhea Clonazepam take 1 tablet by 1tabs I10 [facility], 08/29/2019 0.5mg mouth 30 min prior Elliot, D.O. Tablets to ekg Vitamin D3 Take One Tablet By 30tabs [facility], 07/07/2019 5000Unit Mouth Every Day Elliot, D.O. Tablet (Diet Supplement) Levothyroxine Sodium Take 1 Tablet By 30tabs E03.9 [facility], 05/30/2019 Mouth Every Day Elliot, D.O. 50mcg Tablets (Hypothyroidism) Clonazepam 1 po every morning Unknown 05/12/2019 0.25mg before breakfast Tablets Dispers for anxiety Clonazepam 1 po at bedtime Unknown 05/12/2019 0.5mg for anxiety Tablets Dispers Allergy Take 1 Tablet By 90tabs [facility], 04/24/2019 10mg Tablets Mouth Every Day Elliot, D.O. (For Allergies) Atorvastatin Calcium Take 1 Tablet By 90tabs E78.4 [facility], 04/10/2019 Mouth Every Day Elliot, D.O. 80mg Tablets (1700=5PM) Colace take 2 capsules by 180caps K59.01 [facility], 03/25/2019 100mg Capsules mouth twice a day Elliot, D.O. (stool softening) Ear Flushing do not flush ears [facility], 03/21/2019 until ear drum has Elliot, D.O. been visualized without defect. Saline Mist [place] Once In Each 45units J31.0 [facility], 12/19/2018 0.65% Nostril Daily Elliot, D.O. Solution (Dryness) Tarsum Professional 2 Capfuls AT Bath 236units [facility], 11/27/2018 2% Time Every Day Elliot, D.O. Shampoo (Tar Bath) For Washing Body Finasteride Take 1 Tablet By 30tabs [facility], 10/21/2018 5mg Tablets Mouth Every Day Elliot, D.O. Metoprolol Tartrate (Take BP Prior To 60tabs I10 [facility], 09/12/2018 Giving This Med) 1 Elliot, D.O. 25mg Tablets Tab By Mouth 2 Times A Day * Hold If BP Lower Than 90/60 Or Pulse Lower Than 60 Take Vitals First Systane Ultra 1 drop both eyes 75units [facility], 05/15/2018 Preservative Free as needed every 4 Elliot, D.O. hours for dry eyes 0.4-0.3% Solution as needed Tamsulosin HCL 1 by mouth every 90caps [facility], 04/18/2018 0.4mg day Elliot, D.O. Capsules Chlorhexidine Swab 1 Teaspoon On 473units [facility], 04/18/2018 Gluconate Gums Twice Daily Elliot, D.O. 0.12% For Oral Care Solution Zincon 1% Use 3 Times Weekly 118units [facility], 06/26/2017 Shampoo Elliot, D.O. Bacitracin (External) apply small amount Unknown 05/15/2017 to affected area 500Unit/GM Ointment twice daily as needed for minor skin abrasions/open sores Acetaminophen 2 by mouth every 8 120tabs M25.541 [facility], 05/15/2017 325mg hours, as needed, Yohannes Tavera Tablets ,may receive daily [facility] 02/05/2017 Cream Twice Daily (Dry Arianna Zarate Skin) Am=After Bath/ PM=Before Bed Hydrocortisone apply to facial 45gm L40.0 [facility], 06/15/2016 Valerate lesions twice a Noa ZarateO. 0.2% Cream day as needed dryness, itching or redness Tylenol Supp Insert 1 rectally Unknown 06/15/2016 every 4 hrs prn temp >101 Ducodyl 15mg on day 2 if 30tabs K59.00 [facility], 06/15/[address] joanne Zarate D.O. Guaifenesin 2 tsp po every 4 Unknown 06/15/2016 100mg/5ML hrs prn Liquid [place] Saline Nasal [facility], 06/13/2016 Gel Nostrils Twice Elliot DEllen Daily (Dryness) Fleet Enema Insert 1 Rectally [facility], 04/20/2016 On Day 3 Of Joanne Zarate D.O. 7-19GM/118ML Enema Bowel Movement By 4PM as Needed Tab-A-Boo/Iron Take 1 Tablet By 30tabs [facility], 03/15/2016 Mouth Every Day Arianna Zarate Tablets (Diet Supplement) Ibuprofen taking 2 tabs po 100tabs Max Bragg 09/30/2015 200mg Tablets every 4 h prn Yohannes Whitlock muscle aches or discomfort Antacid Anti-Gas Unknown 09/30/2015 [phone]/5ML Suspension Vitamin A & D ointment prn Unknown 09/30/2015 Oint Desitin prn Unknown 09/30/2015 Ointment Humira subq inj every Unknown 03/11/2015 40mg/0.8ML PSKT other week as directed Triamcinolone apply twice daily [facility], 08/13/2014 Acetonide for 2 weeks Arianna Zarate 0.1% Ointment alternating with diprolene ,not to face or folds (refer to rx#[id number]) Nasal Moist Gel apply to inside of QS [facility], 02/02/2014 Gel nose 2 x a day # Hailey Zarate.O. 90 day supply. Vectical Apply To Legs 100units L40.0 [facility], 02/20/2012 3mcg/GM Twice Daily After Elliot, D.O. Ointment Bath & Before Bed. (Psoriasis) Diprolene Apply To Affected 45units L40.0 [facility], 02/20/2012 0.05% Areas Twice Daily Elliot, D.O. Ointment Times 2 Weeks Alternating With Triamcinolone, Not To Face Or Folds Diapers Adult :Adult Medium 100units Max Bragg 06/27/2011 Pull-Up Due To Yohannes Whitlock Leakage Topiramate take 1 tab twice a 60tabs [facility], 06/05/2011 25mg Tablets day after meals Elliot D.O. Tylenol give 2 tablets po 60tabs Max Bragg 11/28/2005 325mg Tablets t6tohou prn for Yohannes Whitlock pain or fever >101.0f Aspirin Low Dose Take 1 Tablet By 15units [facility], 11/28/2005 81mg Mouth Every Other Elliot, D.O. Chewtabs Day (Prevent Heart Disease) Zincon Dandruff 3 x a week [facility], 1% Elliot, D.O. Shampoo History Medications Doxycycline Hyclate 1 capsule by 10caps Unknown 11/26/2019 - mouth twice a 12/01/2019 100mg Capsules day x 5 days Xarelto One tablet by 30tabs R60.9 Kanwal Cerrato, 09/30/2019 - 15mg Tablets mouth with food MD 10/20/2019 daily I26.99 Xarelto 1 by mouth every 90tabs R60.9 Elliot Rivera, 09/05/2019 - 20mg day after 15mg D.O. 09/30/2019 Tablets tabs done after 21 days. I26.99 Xarelto 1 by mouth 2x/day Unknown 09/01/2019 - 15mg for 21 days 09/05/2019 Tablets Miralax 1.5 capfuls 510gm K59.03 Elliot Rivera 07/23/2019 - 3350NF (25.5gm=30cc) 12 D.O. 11/14/2019 Powder oz of fluid by mouth every day hold for > 3 stools/day/diarrh ea (constipation) Medications Administered in Office Medication SIG Qnty Indications Ordering Provider Date Toradol 15MG. Tristian Marks 09/19/2019 Injection SC/Im Injections Tristian Marks 09/19/2019 Injection Immunizations CPT Code Status Date Vaccine Lot # [id number] Given 08/15/2019 Influenza Vaccine, Inactivated, Subunit, [id number] Adjuvanted, For Intrmusc 34235 Given 06/21/2018 Influenza Vaccine Split Virus Preservative Free Im [id number] Use (hi-dose) 04709 Given 06/20/2017 Influenza Virus Vaccine, Quadrivalent, Split, [id number] Preservative Free 61574 Given 06/16/2016 Influenza Virus Vaccine, Quadrivalent, Split, [id number] Preservative Free 28952 Given 06/14/2015 Zostavax [id number] 82940 Given 06/14/2015 Influenza Virus Vaccine, Quadrivalent, Split, [id number] Preservative Free 68852 Given 06/14/2015 Prevnar 13 [id number] 29257 Given 06/11/2014 Adacel or Boostrix, TDaP [id number] 42637 Given 06/11/2014 Influenza Vaccine Split Virus Preservative Free Im [id number] Use (hi-dose) 40754 Given 07/28/2013 Flu, Split Virus 3Yrs [id number] 35206 Given 07/12/2012 Flu, Split Virus 3Yrs [id number] 69005 Given 08/22/2011 Flu, Split Virus 3Yrs [id number] 20446 Given 08/04/2010 Flu, Split Virus 3Yrs [id number] 48937 Given 09/22/2009 Flu, Split Virus 3Yrs [id number] 63741 Given 08/27/2008 Flu, Split Virus 3Yrs [id number] 35777 Given 08/29/2007 Flu, Split Virus 3Yrs [id number] 58805 Given 08/27/2006 Flu, Split Virus 3Yrs [id number] 99350 Given 03/06/2006 Pneumococcal Immunization [id number] 85591 Given 08/12/2004 Flu, Split Virus 3Yrs 66434 Given 02/10/2004 Td Immunization 10603 Given 08/01/2003 Flu, Split Virus 3Yrs Vital Signs Date Vital Result Comment 12/02/2019 10:01am BP Systolic 144 mmHg BP Diastolic 80 mmHg Weight 173.00 lb Results Test Acquired Date Facility Test Result H/L Range Note Lipid Profile 12/11/2019 [facility] Triglycerides 126 mg/dL 1, 2 (Trig/Chol/HDL) [phone] Cholesterol 130 mg/dL 3 HDL Cholesterol 32.3 mg/dL 4 LDL Cholesterol 73 mg/dL 5 Influenza A & B Request 11/26/2019 [facility] Flu AB Disclaimer (SEE NOTE) 6 [phone] Influenza A Molecular Negative Negative Influenza B Molecular Negative Negative 7 CBC Auto Diff 10/15/2019 [facility] White Blood 11.4 10^3/uL High 3.5 -10.8 [phone] Count Red Blood Count 3.50 10^6/uL Low [...] Red Blood Cells % 0.0 Inr/Protime 10/15/2019 [facility] Inr 1.13 High 0.82-1.09 8 [phone] Laboratory test 10/15/2019 [facility] Lactic Acid 1.3 mmol/L Normal 0.5-2.0 9 finding [phone] Ammonia 57 mcmol/L High 16-53 Urinalysis Profile 10/15/2019 [facility] Urine Color Yellow [phone] Urine Appearance Clear Urine Specific [place] 1.016 Normal 1.010-1.030 Urine pH 6.0 Normal 5-9 Urine Urobilinogen Negative Negative Urine Ketones Negative Negative Urine Protein Negative Negative Urine Leukocytes 2+ Abnormal Negative Urine Blood Negative Negative * * Abnormal Negative 10 Urine Nitrite Negative Negative Urine Bilirubin Negative Negative Urine Glucose Negative Negative Urine White Blood Cell 3+(>20/hpf) Abnormal Absent Urine Red Blood Cell 2+(6-10/hpf) Abnormal Absent Urine Bacteria 1+ Abnormal Absent Comp Metabolic Panel 10/15/2019 [facility] Sodium 136 mmol/L Normal 135-145 [phone] Potassium 4.2 mmol/L Normal 3.5-5.0 Chloride 106 [...] Egfr Non- 65.5 >60 Egfr 79.2 >60 11 Laboratory test 10/15/2019 [facility] Troponin-I (TnI) 0.02 ng/mL < 0.03 12 finding [phone] Acetaminophen < 15 g/mL 13 Salicylate < 2.50 mg/dL <30 TSH (Thyroid Stim Horm) 1.99 mcIU/mL Normal 0.34-5.60 Urine Drug 10/15/2019 [facility] Urine Amphetamine None Detected None Detect SCR ED & [phone] Screen Pain Clinic Urine Barbiturates Screen None Detected None Detect Urine Benzodiazepine Screen None Detected None Detect Urine Cannabinoids Screen None Detected None Detect Urine Cocaine Screen None Detected None Detect Urine Opiates Screen None Detected None Detect Urine Phencyclidine Screen None Detected None Detect 14 Urine Culture And 10/15/2019 [facility] Urine Culture SEE RESULT 15 Sensitivities [phone] BELOW Basic Metabolic 10/09/2019 [facility] Sodium 139 mmol/L Normal 135-1 Panel [phone] Potassium 4.1 mmol/L Normal 3.5-5.0 Chloride 109 mmol/L Normal 101-111 Co2 Carbon Dioxide 26 mmol/L Normal 22-32 Anion Gap 4 mmol/L Normal 2-11 Glucose 107 mg/dL High 70-100 Blood Urea Nitrogen 35 mg/dL High 6-24 Creatinine 1.25 mg/dL High 0.67-1.17 BUN/Creatinine Ratio 28.0 High 8-20 Calcium 9.3 mg/dL Normal 8.6-10.3 Egfr Non- 55.3 >60 Egfr 66.9 >60 16 CBC Auto Diff 10/09/2019 [facility] White Blood 7.7 10^3/uL Normal 3.5-10.8 [phone] Count Red Blood Count 3.48 10^6/uL Low [...] Blood Cells % 0.0 Laboratory test 09/20/2019 [facility] C Reactive 5.15 mg/L Normal < 8.01 finding [phone] Protein Comp Metabolic 09/20/2019 [facility] Sodium 135 mmol/L Normal 135- 145 Panel [phone] Potassium 3.7 mmol/L Normal 3.5-5.0 Chloride 106 [...] Egfr Non- 48.5 >60 Egfr 58.7 >60 17 Laboratory test 09/20/2019 [facility] Partial 76.3 seconds High 26.0- 38.0 finding [phone] Thrombo Time PTT Inr/Protime 09/20/2019 [facility] Inr 1.16 High 0.82-1.09 18 [phone] CBC Auto Diff 09/20/2019 [facility] White Blood 7.2 10^3/uL Normal 3.5-10.8 [phone] Count Red Blood Count 3.70 10^6/uL Low [...] % Nucleated Red Blood Cells % 0.1 Inr/Protime 09/03/2019 [facility] Inr 1.55 High 0.82-1.09 19 [phone] Basic Metabolic Panel 09/03/2019 [facility] Sodium 135 mmol/L Normal 135-145 [phone] Potassium 4.4 mmol/L Normal 3.5-5.0 Chloride 105 mmol/L Normal 101-111 Co2 Carbon Dioxide 26 mmol/L Normal 22-32 Anion Gap 4 mmol/L Normal 2-11 Glucose 88 mg/dL Normal 70-100 Blood Urea Nitrogen 29 mg/dL High 6-24 Creatinine 1.15 mg/dL Normal 0.67-1.17 BUN/Creatinine Ratio 25.2 High 8-20 Calcium 9.5 mg/dL Normal 8.6-10.3 Egfr Non- 60.9 >60 Egfr 73.7 >60 20 CBC Auto Diff 09/03/2019 [facility] White Blood 7.7 10^3/uL Normal 3.5-10.8 [phone] Count Red Blood Count 4.94 10^6/uL Normal [...] Blood Cells % 0.0 Urinalysis Profile 09/03/2019 [facility] Urine Color Yellow [phone] Urine Appearance Cloudy Urine Specific [place] 1.014 Normal 1.010-1.030 Urine pH 6.0 Normal [...] Bacteria Absent Absent Urine Culture And 09/03/2019 [facility] Urine Culture SEE RESULT 21 Sensitivities [phone] BELOW CBC Auto Diff 08/30/2019 [facility] White Blood 7.7 10^3/uL Normal 3.5-4 [phone] Count 0.8 Red Blood Count 5.03 10^6/uL [...] Cells % 0.1 Comp Metabolic Panel 08/30/2019 [facility] Sodium 135 mmol/L Normal 135-145 [phone] Potassium 4.6 mmol/L Normal 3.5-5.0 Chloride 107 [...] Egfr Non- 63.4 >60 Egfr 76.7 >60 22 Laboratory test 08/30/2019 [facility] Troponin-I (TnI) 0.01 ng/mL < 0.04 23 finding [phone] D Dimer Quantitative 356 ng/mL High Less Than 230 24 TSH (Thyroid Stim Horm) 2.17 mcIU/mL Normal 0.34-5.60 B-Type Natriuretic Peptide BNP 54 pg/mL <=100 CBC Auto Diff 07/31/2019 [facility] White Blood 6.9 10^3/uL Normal 3.5-10.8 [phone] Count Red Blood Count 5.27 10^6/uL Normal [...] Cells % 0.0 Comp Metabolic Panel 07/31/2019 [facility] Sodium 135 mmol/L Normal 135-145 [phone] Potassium 4.3 mmol/L Normal 3.5-5.0 Chloride 106 [...] Egfr Non- 58.5 >60 Egfr 70.8 >60 25 Laboratory test 07/31/2019 [facility] TSH (Thyroid 3.99 mcIU/mL Normal 0.34-5.60 sujltiq [phone] Stim Horm) 1 [id number] 2 Desirable: <150 Borderline High: 150-199 High: 200-499 Very High: >500 3 Desirable: <200 Borderline High: 200-239 High: >239 4 Low: <40 Desirable: 40-60 High: >60 5 Desirable: <100 Near Optimal: 100-129 Borderline High: 130-159 High: 160-189 Very High: >189 6 Suboptimal collection technique may reduce sensitivity of test. Refer to the [facility] Test Catalog for collection information: [email or web address] As with all diagnostic procedures, the laboratory results obtained should be used in conjunction with other clinical information available to the physician, including confirmation by another method, as applicable. 7 [employer] Player: [id number] 8 Standard intensity warfarin therapeutic range: 2.0-3.0 High intensity warfarin therapeutic range: 2.5-3.5 9 [facility] Severe Sepsis and Septic Shock Management Bundle Measure requires all lactic acids initially measuring >2.0 mmol/L be repeated. 10 *Ascorbic acid is present which may interfere with detection of blood. 11 Because ethnic data is not always readily [...] 15-29 5 Kidney failure <15 (or dialysis) 12 Troponin-I testing on Plasma Separator Tubes (PST) has a known false positive rate of 0.20-0.40%. All positive troponins reflex immediately to secondary confirmatory testing. Using the [employer] DxI 800 Access Immunoassay systems, the 99th percentile upper reference limit was demonstrated to be < 0.03 ng/mL. 13 Therapeutic concentration: <50 ug/mL Toxic concentration: >120 ug/mL 14 The urine specimen was tested at the listed cutoffs: Drug class test level (ng/mL) Amphetamines 500 Barbiturates 200 Benzodiazepine metabolites 200 Cocaine metabolites 150 Cannabinoids 50 Opiates 300 Pcp 25 Specimen was received without chain of custody. Results should be used for medical purposes only. 15 SEE RESULT BELOW Name: LEYLA CARRANZA Ngoc : [address]: Myra Hsu MD Acct: [id number] Unit: [id number] AGE: 84 Location: ED Re10/15/19 SEX: M Status: DEP ER SPEC: [id number] LAVERN: 10/15/[address] [facility] [address]: Myra Hsu MD REQ: [id number] RECD: 10/15/19 STATUS: SHAHEED SOLANO DR: Elliot Rivera DO _ SOURCE: URINE SPDESC: ORDERED: Urine Culture Procedure Result Reported Site Urine Culture Final 10/17/19- 0946 ML No Growth (<1,000 CFU/mL) * ML - Main Lab . END OF REPORT DEPARTMENT OF PATHOLOGY, [address] [place] [address] Jeronimo Santos M.D. Director [facility] # [id number] 16 Because ethnic data is not always readily [...] 15-29 5 Kidney failure <15 (or dialysis) 17 Because ethnic data is not always readily [...] 15-29 5 Kidney failure <15 (or dialysis) 18 Standard intensity warfarin therapeutic range: 2.0-3.0 High intensity warfarin therapeutic range: 2.5-3.5 19 Standard intensity warfarin therapeutic range: 2.0-3.0 High intensity warfarin therapeutic range: 2.5-3.5 20 Because ethnic data is not always [...] 5 Kidney failure <15 (or dialysis) 21 SEE RESULT BELOW Name: LEYLA CARRANZA : [address]: Jesus Hidalgo MD Acct: [id number] Unit: [id number] AGE: 84 Location: ED Re09/03/19 SEX: M Status: DEP ER SPEC: [id number] LAVERN: 09/03/19-[address] [facility] [address]: Jesus Hidalgo MD REQ: [id number] RECD: 09/03/199 STATUS: SHAHEED SOLANO DR: [facility] Elliot Rivera DO _ SOURCE: URINE [facility]: ORDERED: Urine Culture Procedure Result Reported Site Urine Culture Final 09/04/19- 1116 ML No Growth (<1,000 CFU/mL) * ML - Main Lab . END OF REPORT DEPARTMENT OF PATHOLOGY, [address] [place] [address] Jeronimo Santos M.D. Director [facility] # [id number] 22 Because ethnic data is not always [...] 5 Kidney failure <15 (or dialysis) 23 Troponin-I testing on Plasma Separator Tubes (PST) has a known false positive rate of 0.20-0.40%. All positive troponins reflex immediately to secondary confirmatory testing. Using the [employer] DxI 800 Access Immunoassay systems, the 99th percentile upper reference limit was demonstrated to be < 0.03 ng/mL. 24 Please note: The following may produce a false positive D Dimer test: - Rheumatoid factor greater than 60 IU/ml - Plasma hemoglobin greater than 0.05 gm/dl - Bilirubin greater than 50 mg/dl - Lipids greater than 1000 mg/dl - FDP greater than 20 ug/ml 25 Because ethnic data is not always [...] (or dialysis) Procedures Date Code Description Status 12/17/2019 53972 Electrocardiogram Complete Completed 09/19/2019 95451 SC/Im Injections Completed 09/14/2006 25321104 Colonoscopy Completed Medical Devices Description No Information Available Encounters Type Date Location Provider Dx Diagnosis Office Visit 12/02/2019 Main Office Kanwal Cerrato, J18.9 Pneumonia, unspecified 10:00a organism Office Visit 10/21/2019 Main Office Kanwal Cerrato, Z01.818 Encounter for other 9:30a preprocedural examination D64.9 Anemia, unspecified N39.0 Urinary tract infection, site not specified Office Visit 09/29/2019 9:45a Main Office Kanwal Cerrato Z01.818 Encounter for vielka Owusu MD preprocedural examination 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 E03.9 Hypothyroidism, unspecified [...] L40.0 Psoriasis vulgaris R06.02 Shortness of breath Assessments Date Code Description Provider 12/17/2019 Z01.818 Encounter for other preprocedural Kanwal Cerrato MD examination 12/02/2019 J18.9 Pneumonia, unspecified organism Kanwal Cerrato MD 10/21/2019 Z01.818 Encounter for other preprocedural Kanwal Cerrato MD examination 10/21/2019 D64.9 Anemia, unspecified Kanwal Cerrato MD 10/21/2019 N39.0 Urinary tract infection, site not specified Kanwal Cerrato MD 09/29/2019 Z01.818 Encounter for other preprocedural Kanwal Cerrato MD examination 09/29/2019 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 obstruction, without gangrene, not specified as recurrent 09/19/2019 R60.0 Localized edema Marga Dunaway P.A. 09/19/2019 R45.1 Restlessness and agitation Marga Dunaway P.A. 09/19/2019 F73 Profound intellectual disabilities Marga Dunaway, P.A. 09/05/2019 I26.99 Other pulmonary embolism without acute cor Elliot Rivera D.O. pulmonale 09/05/2019 R60.9 Edema, unspecified Elliot Rivera D.O. 09/05/2019 K40.30 Unilateral inguinal hernia, with Elliot Rivera D.ORashmi obstruction, without gangrene, not specified as recurrent 09/05/2019 I10 Essential (primary) hypertension Elliot Rivera D.O. 09/05/2019 I73.9 Peripheral vascular disease, unspecified Elliot Rivera D.O. 09/05/2019 R01.1 Cardiac murmur, unspecified Elliot Rivera D.O. 09/05/2019 E03.9 Hypothyroidism, unspecified Elliot Rivera D.O. 09/05/2019 L40.0 Psoriasis vulgaris Elliot Rivera D.O. 09/05/2019 R06.02 Shortness of breath Elliot Rivera D.O. 08/29/2019 R60.9 Edema, unspecified Elliot Rivera D.O. 08/29/2019 K40.30 Unilateral inguinal hernia, with Elliot Rivera D.O. obstruction, without gangrene, not specified as recurrent 08/29/2019 I10 Essential (primary) hypertension Elliot Rivera D.O. 08/29/2019 I73.9 Peripheral vascular disease, unspecified Elloit Rivera D.O. 08/29/2019 R01.1 Cardiac murmur, unspecified [...] level, unspecified, initial Elliot Rivera D.O. encounter Plan of Treatment Future Appointment(s):07/23/2020 3:30 pm - Elliot Rivera D.O. at Main [facility]9009/19/2019 - Tristian MarksK40.30 Unilateral inguinal hernia, with obstruction, without gangrene, not specified as recurrentComments:discussed case with Dr. Rivera who is more familiar with Primo's condition, who agreed pt should togo to the ED. Called ED and reported that we were sending him there was a staff member. Spoke wR60.0 Localized oabqsC87.1 Restlessness and [id number] Profound intellectual disabilities Functional Status Description No Information Available Mental Status Description No Information Available Referrals Refer to Reason for Referral Status Appt Date Article 16 OT Clinic OT for [facility] [employer], see included Sent documentation [address] [place], [place] [id number] [phone] [facility] Hearing evaluation. Consult and Treat Sent [address] [place] [address] [phone]
--- OUTSIDE RECORDS SUMMARY | 2019-12-18 10:18 | XMS REPORT | Continuity of Care Document ---
:1935 External Reference #:[id number] Author Name Kanwal Cerrato MD (transmitted by agent of provider Carolyn Oliva) Address [address] [place] [address] Care Team Providers Name Role Phone Ben Thompson MD - Care Team Information Cloth Shearing Supervisor [phone] Otolaryngology Miguelito Mejia MD - Internal Care Team Information Cloth Shearing Supervisor [phone] [facility] - Surgery Care Team Information Cloth Shearing Supervisor Problems Active Problems Provider Date Hypothyroidism Max [...] Provider Calcipotriene apply to affected 60units L40.0 [facility], 12/16/2019 0.005% legs twice a day Elliot, D.O. Cream after bath for relief of psoriasis Peg 3350 1 Capful 510units K59.03 [facility], 11/14/2019 Powder (17GM=20cc) 8 Oz Elliot, D.O. Of Fluid By Mouth Every Day Hold For > 3 Stools/Day/Diarrhe a (Constipation)*Not reid numerologist When Held Enulose give 2 tablespoon 946units [facility], 09/29/2019 10GM/15ML (30cc) by mouth Elliot, D.O. Solution every day (constipation) hold for >3 bm per day or diarrhea Clonazepam take 1 tablet by 1tabs I10 [facility], 08/29/2019 0.5mg mouth 30 min prior Elliot, D.O. Tablets to ekg Vitamin D3 Take One Tablet By 30tabs [facility], 07/07/2019 5000Unit Mouth Every Day Elliot, D.O. Tablet (Diet Supplement) Levothyroxine Sodium Take 1 Tablet By 30tabs E03.9 [facility], 05/30/2019 Mouth Every Day Elliot, D.O. 50mcg Tablets (Hypothyroidism) Clonazepam 1 po every morning Unknown 05/12/2019 0.25mg before breakfast Tablets Dispers for anxiety Clonazepam 1 po at bedtime Unknown 05/12/2019 0.5mg for anxiety Tablets Dispers Allergy Take 1 Tablet By 90tabs [facility], 04/24/2019 10mg Tablets Mouth Every Day Elliot, D.O. (For Allergies) Atorvastatin Calcium Take 1 Tablet By 90tabs E78.4 [facility], 04/10/2019 Mouth Every Day Elliot, D.O. 80mg Tablets (1700=5PM) Colace take 2 capsules by 180caps K59.01 [facility], 03/25/2019 100mg Capsules mouth twice a day Elliot, D.O. (stool softening) Ear Flushing do not flush ears [facility], 03/21/2019 until ear drum has Elliot, D.O. been visualized without defect. Saline Mist [place] Once In Each 45units J31.0 [facility], 12/19/2018 0.65% Nostril Daily Elliot, D.O. Solution (Dryness) Tarsum Professional 2 Capfuls AT Bath 236units [facility], 11/27/2018 2% Time Every Day Elliot, D.O. Shampoo (Tar Bath) For Washing Body Finasteride Take 1 Tablet By 30tabs [facility], 10/21/2018 5mg Tablets Mouth Every Day Elliot, D.O. Metoprolol Tartrate (Take BP Prior To 60tabs I10 [facility], 09/12/2018 Giving This Med) 1 Elliot, D.O. 25mg Tablets Tab By Mouth 2 Times A Day * Hold If BP Lower Than 90/60 Or Pulse Lower Than 60 Take Vitals First Systane Ultra 1 drop both eyes 75units [facility], 05/15/2018 Preservative Free as needed every 4 Elliot, D.O. hours for dry eyes 0.4-0.3% Solution as needed Tamsulosin HCL 1 by mouth every 90caps [facility], 04/18/2018 0.4mg day Elliot, D.O. Capsules Chlorhexidine Swab 1 Teaspoon On 473units [facility], 04/18/2018 Gluconate Gums Twice Daily Elliot, D.O. 0.12% For Oral Care Solution Zincon 1% Use 3 Times Weekly 118units [facility], 06/26/2017 Shampoo Elliot, D.O. Bacitracin (External) apply small amount Unknown 05/15/2017 to affected area 500Unit/GM Ointment twice daily as needed for minor skin abrasions/open sores Acetaminophen 2 by mouth every 8 120tabs M25.541 [facility], 05/15/2017 325mg hours, as needed, Yohannes Tavera Tablets ,may receive daily Cerave [facility] 02/05/2017 Cream Twice Daily (Dry Arianna Zarate Skin) Am=After Bath/ PM=Before Bed Hydrocortisone apply to facial 45gm L40.0 [facility], 06/15/2016 Valerate lesions twice a Arianna Zarate 0.2% Cream day as needed dryness, itching or redness Tylenol Supp Insert 1 rectally Unknown 06/15/2016 every 4 hrs prn temp >101 Ducodyl 15mg on day 2 if 30tabs K59.00 [facility], 06/15/[address] joanne Zarate D.O. Guaifenesin 2 tsp po every 4 Unknown 06/15/2016 100mg/5ML hrs prn Liquid Capac Saline Nasal Apply Inside [facility] 06/13/2016 Gel Nostrils Twice Arianna Zarate Daily (Dryness) Fleet Enema Insert 1 Rectally [facility] 04/20/2016 On Day 3 Of Joanne Zarate D.O. 7-19GM/118ML Enema Bowel Movement By 4PM as Needed Tab-A-Boo/Iron Take 1 Tablet By 30tabs [facility], 03/15/2016 Mouth Every Day Arianna Zarate Tablets (Diet Supplement) Ibuprofen taking 2 tabs po 100tabs Max Bragg 09/30/2015 200mg Tablets every 4 h prn Yohannes Whitlock muscle aches or discomfort Antacid Anti-Gas Unknown 09/30/2015 010-853-07ua/5ML Suspension Vitamin A & D ointment prn Unknown 09/30/2015 Oint Desitin prn Unknown 09/30/2015 Ointment Humira subq inj every Unknown 03/11/2015 40mg/0.8ML PSKT other week as directed Triamcinolone apply twice daily [facility] 08/13/2014 Acetonide for 2 weeks Arianna Zarate 0.1% Ointment alternating with diprolene ,not to face or folds (refer to rx#[id number]) Nasal Moist Gel apply to inside of [facility], 02/02/2014 Gel nose 2 x a day # Jaqueline Zarate. 90 day supply. Vectical Apply To Legs 100units L40.0 [facility], 02/20/2012 3mcg/GM Twice Daily After Elliot D.O. Ointment Bath & Before Bed. (Psoriasis) Diprolene Apply To Affected 45units L40.0 [facility], 02/20/2012 0.05% Areas Twice Daily Elliot D.O. Ointment Times 2 Weeks Alternating With Triamcinolone, Not To Face Or Folds Diapers Adult :Adult Medium 100units Max Bragg 06/27/2011 Pull-Up Due To Yohannes Whitlock Leakage Topiramate take 1 tab twice a 60tabs [facility], 06/05/2011 25mg Tablets day after meals Jaqueline Zarate. Tylenol give 2 tablets po 60tabs Max Bragg 11/28/2005 325mg Tablets [id number] prn for Yohannes Whitlock pain or fever >101.0f Aspirin Low Dose Take 1 Tablet By 15units [facility], 11/28/2005 81mg Mouth Every Other Elliot D.O. Chewtabs Day (Prevent Heart Disease) Zincon Dandruff 3 x a week [facility], 1% Elliot D.O. Shampoo History Medications Doxycycline Hyclate 1 [...] Tablets Miralax 1.5 capfuls 510gm K59.03 Elliot Rivera, 07/23/2019 - 3350NF (25.5gm=30cc) 12 D.O. 11/14/2019 Powder oz of fluid by mouth every day hold for > 3 stools/day/diarrh ea (constipation) Medications Administered in Office Medication SIG Qnty Indications Ordering Provider Date Toradol 15MG. Tristian Marks 09/19/2019 Injection SC/Im Injections Tristian Marks 09/19/2019 Injection Immunizations CPT Code Status Date Vaccine Lot # 43870 Given 08/15/2019 Influenza Vaccine, Inactivated, Subunit, [id number] Adjuvanted, For Intrmusc 63871 Given 06/21/2018 Influenza Vaccine Split Virus Preservative Free Im [id number] Use (hi-dose) 30346 Given 06/20/2017 Influenza Virus Vaccine, Quadrivalent, Split, [id number] Preservative Free 74580 Given 06/16/2016 Influenza Virus Vaccine, Quadrivalent, Split, [id number] Preservative Free 59639 Given 06/14/2015 Zostavax [id number] 13350 Given 06/14/2015 Influenza Virus Vaccine, Quadrivalent, Split, [id number] Preservative Free 94471 Given 06/14/2015 Prevnar 13 [id number] 50627 Given 06/11/2014 Adacel or Boostrix, TDaP [id number] 61129 Given 06/11/2014 Influenza Vaccine Split Virus Preservative Free Im [id number] Use (hi-dose) 70646 Given 07/28/2013 Flu, Split Virus 3Yrs [id number] 81143 Given 07/12/2012 Flu, Split Virus 3Yrs [id number] 09079 Given 08/22/2011 Flu, Split Virus 3Yrs [id number] 32209 Given 08/04/2010 Flu, Split Virus 3Yrs [id number] 44292 Given 09/22/2009 Flu, Split Virus 3Yrs [id number] 82920 Given 08/27/2008 Flu, Split Virus 3Yrs [id number] 43766 Given 08/29/2007 Flu, Split Virus 3Yrs [id number] 34570 Given 08/27/2006 Flu, Split Virus 3Yrs [id number] 40722 Given 03/06/2006 Pneumococcal Immunization [id number] 66076 Given 08/12/2004 Flu, Split Virus 3Yrs 23190 Given 02/10/2004 Td Immunization 06426 Given 08/01/2003 Flu, Split Virus 3Yrs Vital Signs Date Vital Result Comment 12/02/2019 10:01am BP Systolic 144 mmHg BP Diastolic 80 mmHg Weight 173.00 lb Results Test Acquired Date Facility Test Result H/L Range Note Lipid Profile 12/11/2019 [facility] Triglycerides 126 mg/dL 1, 2 (Trig/Chol/HDL) [phone] Cholesterol 130 mg/dL 3 HDL Cholesterol 32.3 mg/dL 4 LDL Cholesterol 73 mg/dL 5 Influenza A & B Request 11/26/2019 [facility] Flu AB Disclaimer (SEE NOTE) 6 [phone] Influenza A Molecular Negative Negative Influenza B Molecular Negative Negative 7 CBC Auto Diff 10/15/2019 [facility] White Blood 11.4 10^3/uL High 3.5 -10.8 [phone] Count Red Blood Count 3.50 10^6/uL Low [...] Red Blood Cells % 0.0 Inr/Protime 10/15/2019 [facility] Inr 1.13 High 0.82-1.09 8 [phone] Laboratory test 10/15/2019 [facility] Lactic Acid 1.3 mmol/L Normal 0.5-2.0 9 finding [phone] Ammonia 57 mcmol/L High 16-53 Urinalysis Profile 10/15/2019 [facility] Urine Color Yellow [phone] Urine Appearance Clear Urine Specific [place] 1.016 Normal 1.010-1.030 Urine pH 6.0 Normal [...] 1+ Abnormal Absent Comp Metabolic Panel 10/15/2019 [facility] Sodium 136 mmol/L Normal 135-145 [phone] Potassium 4.2 mmol/L Normal 3.5-5.0 Chloride 106 [...] Egfr 79.2 >60 11 Laboratory test 10/15/2019 [facility] Troponin-I (TnI) 0.02 ng/mL < 0.03 12 finding [phone] Acetaminophen < 15 g/mL 13 Salicylate < 2.50 mg/dL <30 TSH (Thyroid Stim Horm) 1.99 mcIU/mL Normal 0.34-5.60 Urine Drug 10/15/2019 [facility] Urine Amphetamine None Detected None Detect SCR ED & [phone] Screen Pain Clinic Urine Barbiturates Screen None Detected None Detect Urine Benzodiazepine Screen None Detected None Detect Urine Cannabinoids Screen None Detected None Detect Urine Cocaine Screen None Detected None Detect Urine Opiates Screen None Detected None Detect Urine Phencyclidine Screen None Detected None Detect 14 Urine Culture And 10/15/2019 [facility] Urine Culture SEE RESULT 15 Sensitivities [phone] BELOW Basic Metabolic 10/09/2019 [facility] Sodium 139 mmol/L Normal 135-1 Panel [phone] Potassium 4.1 mmol/L Normal 3.5-5.0 Chloride 109 mmol/L Normal 101-111 Co2 Carbon Dioxide 26 mmol/L Normal 22-32 Anion Gap 4 mmol/L Normal 2-11 Glucose 107 mg/dL High 70-100 Blood Urea Nitrogen 35 mg/dL High 6-24 Creatinine 1.25 mg/dL High 0.67-1.17 BUN/Creatinine Ratio 28.0 High 8-20 Calcium 9.3 mg/dL Normal 8.6-10.3 Egfr Non- 55.3 >60 Egfr 66.9 >60 16 CBC Auto Diff 10/09/2019 [facility] White Blood 7.7 10^3/uL Normal 3.5-10.8 [phone] Count Red Blood Count 3.48 10^6/uL Low [...] Blood Cells % 0.0 Laboratory test 09/20/2019 [facility] C Reactive 5.15 mg/L Normal < 8.01 finding [phone] Protein Comp Metabolic 09/20/2019 [facility] Sodium 135 mmol/L Normal 135- 145 Panel [phone] Potassium 3.7 mmol/L Normal 3.5-5.0 Chloride 106 [...] Egfr 58.7 >60 17 Laboratory test 09/20/2019 [facility] Partial 76.3 seconds High 26.0- 38.0 finding [phone] Thrombo Time PTT Inr/Protime 09/20/2019 [facility] Inr 1.16 High 0.82-1.09 18 [phone] CBC Auto Diff 09/20/2019 [facility] White Blood 7.2 10^3/uL Normal 3.5-10.8 [phone] Count Red Blood Count 3.70 10^6/uL Low [...] Red Blood Cells % 0.1 Inr/Protime 09/03/2019 [facility] Inr 1.55 High 0.82-1.09 19 [phone] Basic Metabolic Panel 09/03/2019 [facility] Sodium 135 mmol/L Normal 135-145 [phone] Potassium 4.4 mmol/L Normal 3.5-5.0 Chloride 105 mmol/L Normal 101-111 Co2 Carbon Dioxide 26 mmol/L Normal 22-32 Anion Gap 4 mmol/L Normal 2-11 Glucose 88 mg/dL Normal 70-100 Blood Urea Nitrogen 29 mg/dL High 6-24 Creatinine 1.15 mg/dL Normal 0.67-1.17 BUN/Creatinine Ratio 25.2 High 8-20 Calcium 9.5 mg/dL Normal 8.6-10.3 Egfr Non- 60.9 >60 Egfr 73.7 >60 20 CBC Auto Diff 09/03/2019 [facility] White Blood 7.7 10^3/uL Normal 3.5-10.8 [phone] Count Red Blood Count 4.94 10^6/uL Normal [...] Blood Cells % 0.0 Urinalysis Profile 09/03/2019 [facility] Urine Color Yellow [phone] Urine Appearance Cloudy Urine Specific [place] 1.014 Normal 1.010-1.030 Urine pH 6.0 Normal [...] Bacteria Absent Absent Urine Culture And 09/03/2019 [facility] Urine Culture SEE RESULT 21 Sensitivities [phone] BELOW CBC Auto Diff 08/30/2019 [facility] White Blood 7.7 10^3/uL Normal 3.5-6 [phone] Count 0.8 Red Blood Count 5.03 10^6/uL [...] Cells % 0.1 Comp Metabolic Panel 08/30/2019 [facility] Sodium 135 mmol/L Normal 135-145 [phone] Potassium 4.6 mmol/L Normal 3.5-5.0 Chloride 107 [...] Egfr 76.7 >60 22 Laboratory test 08/30/2019 [facility] Troponin-I (TnI) 0.01 ng/mL < 0.04 23 finding [phone] Dimer Quantitative 356 ng/mL High Less Than 230 24 TSH (Thyroid Stim Horm) 2.17 mcIU/mL Normal 0.34-5.60 B-Type Natriuretic Peptide BNP 54 pg/mL <=100 CBC Auto Diff 07/31/2019 [facility] White Blood 6.9 10^3/uL Normal 3.5-10.8 [phone] Count Red Blood Count 5.27 10^6/uL Normal [...] Cells % 0.0 Comp Metabolic Panel 07/31/2019 [facility] Sodium 135 mmol/L Normal 135-145 [phone] Potassium 4.3 mmol/L Normal 3.5-5.0 Chloride 106 [...] Egfr 70.8 >60 25 Laboratory test 07/31/2019 [facility] TSH (Thyroid 3.99 mcIU/mL Normal 0.34-5.60 finding [phone] Stim Horm) 1 [id number] 2 Desirable: <150 Borderline High: 150-199 High: 200-499 Very High: >500 3 Desirable: <200 Borderline High: 200-239 High: >239 4 Low: <40 Desirable: 40-60 High: >60 5 Desirable: <100 Near Optimal: 100-129 Borderline High: 130-159 High: 160-189 Very High: >189 6 Suboptimal collection technique may reduce sensitivity of test. Refer to the [facility] Test Catalog for collection information: [email or web address] As with all diagnostic procedures, the laboratory results obtained should be used in conjunction with other clinical information available to the physician, including confirmation by another method, as applicable. 7 Paper Guillotine Operator: [id number] 8 Standard intensity warfarin therapeutic range: 2.0-3.0 High intensity warfarin therapeutic range: 2.5-3.5 9 [facility] Severe Sepsis and Septic Shock Management Bundle [...] immediately to secondary confirmatory testing. Using the [employer] DxI 800 Access Immunoassay systems, the 99th [...] [address]: Myra Hsu MD Acct: [id number] Unit: [id number] AGE: 84 Location: ED Re10/15/19 SEX: M Status: DEP ER SPEC: [id number] LAVERN: 10/15/19 [facility] DR: Myra Hsu MD REQ: [id number] RECD: 10/15/19 STATUS: SHAHEED SOLANO DR: Elliot Rivera DO _ SOURCE: URINE SPDESC: ORDERED: Urine Culture Procedure Result Reported Site Urine Culture Final 10/17/19- 0946 ML No Growth (<1,000 CFU/mL) * ML - Main Lab . END OF REPORT DEPARTMENT OF PATHOLOGY, [address] [place] [address] Jeronimo Santos M.D. Director [facility] # [id number] 16 Because ethnic data is not always [...] [address]: Jesus Hidalgo MD Acct: [id number] Unit: [id number] AGE: 84 Location: ED Re09/03/19 SEX: M Status: DEP ER SPEC: [id number] LAVERN: 09/03/19-1234 [facility] DR: Jesus Hidalgo MD REQ: [id number] RECD: 09/03/193 STATUS: SHAHEED SOLANO DR: [facility] Elliot Rivera DO _ SOURCE: URINE [facility]: ORDERED: Urine Culture Procedure Result Reported Site Urine Culture Final 09/04/19- 1116 ML No Growth (<1,000 CFU/mL) * ML - Main Lab . END OF REPORT DEPARTMENT OF PATHOLOGY, [address] [place] [address] Jeronimo Santos M.D. Director [facility] # [id number] 22 Because ethnic data is not always [...] immediately to secondary confirmatory testing. 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 obstruction, without gangrene, not specified as recurrent 09/19/2019 R60.0 Localized edema Marga Dunaway, P.A. 09/19/2019 R45.1 Restlessness and agitation Marga Dunaway P.A. 09/19/2019 F73 Profound intellectual disabilities Marga Dunaway, P.A. 09/05/2019 I26.99 Other pulmonary embolism without acute cor Elliot Rivera D.ORashmi pulmonale 09/05/2019 R60.9 Edema, unspecified Elliot Rivera [...] pm - Elliot Rivera D.O. at Main Qkijzr3209/19/2019 - Marga Drybranch, P.A.K40.30 Unilateral inguinal hernia, with obstruction, without gangrene, not specified as recurrentComments:discussed case with Dr. Rivera who is more familiar with Primo's condition, who agreed pt should togo to the ED. Called ED and reported that we were sending him there was a staff member. Spoke wR60.0 Localized mfpvfZ87.1 Restlessness and [id number] Profound intellectual disabilities Functional Status Description No Information Available Mental Status Description No Information Available Referrals Refer to Reason for Referral Status Appt Date Article 16 OT Clinic OT for [employer], see included Sent documentation [address] [place], [place] [id number] [phone] [facility] Hearing evaluation. Consult and Treat Sent [address] [place] [address] [phone]
--- OUTSIDE RECORDS SUMMARY | 2019-12-18 10:18 | XMS REPORT | Continuity of Care Document ---
:1935 External Reference #:[id number] Author Name Kanwal Cerrato MD Address [address] [place] [address] Care Team Providers Name Role Phone Ben Thompson MD - Care Team Information Cloth Finisher [phone] Otolaryngology Miguelito Mejia MD - Internal Care Team Information Cloth Finisher [phone] [facility] Care Team Information Cloth Finisher Problems Active Problems Provider Date Hypothyroidism Max [...] Medications SIG Qnty Indications Ordering Date Provider Peg 3350 1 Capful 510units K59.03 [facility], 11/14/2019 Powder (17GM=20cc) 8 Oz Elliot, D.O. Of Fluid By Mouth Every Day Hold For > 3 Stools/Day/Diarrhe a (Constipation)*Not [facility] RN When Held Enulose Give 2 Tablespoon 946units [facility], 09/29/2019 10GM/15ML (30cc) By Mouth Elliot, D.O. Solution Every Day (Constipation) Hold For >3 BM Per Day Or Diarrhea Clonazepam take 1 tablet by 1tabs I10 [facility], 08/29/2019 0.5mg mouth 30 min prior Elliot, D.O. Tablets to EKG Vitamin D3 Take One Tablet By [facility], 07[facility]07[facility]2019 5000Unit Mouth Every Day Elliot, D.O. Tablet (Diet Supplement) Levothyroxine Sodium Take 1 Tablet By 30tabs E03.9 [facility] Mouth Every Day Elliot, D.O. 50mcg Tablets (Hypothyroidism) Clonazepam 1 po every morning Unknown 05/12/2019 0.25mg before breakfast Tablets Dispers for anxiety Clonazepam 1 po at bedtime Unknown 05/12/2019 0.5mg for anxiety Tablets Dispers Allergy Take 1 Tablet By 90tabs [facility], 04/24/2019 10mg Tablets Mouth Every Day Elliot, D.O. (For Allergies) Atorvastatin Calcium Take 1 Tablet By 90tabs E78.4 [facility], 04/10/2019 Mouth Every Day Elliot, D.O. 80mg Tablets (1700=5PM) Colace take 2 capsules by 180caps K59.01 [facility], 03/25/2019 100mg Capsules mouth twice a day Elliot, D.O. (stool softening) Ear Flushing do not flush ears [facility], 03/21/2019 until ear drum has Elliot D.O. been visualized without defect. Saline Mist [place] Once In Each 45units J31.0 [facility], 12/19/2018 0.65% Nostril Daily Elliot D.O. Solution (Dryness) Tarsum Professional 2 Capfuls AT Bath 236units [facility], 11/27/2018 2% Time Every Day Elliot, D.O. Shampoo (Tar Bath) For Washing Body Finasteride Take 1 Tablet By 30tabs [facility], 10/21/2018 5mg Tablets Mouth Every Day Elliot, D.O. Metoprolol Tartrate (Take BP Prior To 60tabs I10 [facility], 09/12/2018 Giving This Med) 1 Elliot, D.O. 25mg Tablets Tab By Mouth 2 Times A Day * Hold If BP Lower Than 90/60 Or Pulse Lower Than 60 Take Vitals First Systane Ultra 1 drop both eyes 75units [facility], 05/15/2018 Preservative Free as needed every 4 Elliot, D.O. hours for dry eyes 0.4-0.3% Solution as needed Tamsulosin HCL 1 by mouth every 90caps [facility], 04/18/2018 0.4mg day Elliot, D.O. Capsules Chlorhexidine Swab 1 Teaspoon On 473units [facility], 04/18/2018 Gluconate Gums Twice Daily Elliot, D.O. 0.12% For Oral Care Solution Zincon 1% Use 3 Times Weekly 118units [facility], 06/26/2017 Shampoo Elliot, D.O. Bacitracin (External) apply small amount Unknown 05/15/2017 to affected area 500Unit/GM Ointment twice daily as needed for minor skin abrasions/open sores Acetaminophen 2 by mouth every 8 120tabs M25.541 [facility], 05/15/2017 325mg hours, as needed, Yohannes Tavera Tablets ,may receive daily Calcitriol Apply To Legs 100units [facility], 04/18/2017 3mcg/GM Twice Daily After Arianna Zarate Ointment Bath & Before Bed. (Psoriasis) [facility] 02/[facility]2017 Cream Twice Daily (Dry Elliot D.O. Skin) Am=After Bath/ PM=Before Bed Hydrocortisone apply to facial 45gm L40.0 [facility], 06/15/2016 Valerate lesions twice a Hailey Zarate.O. 0.2% Cream day as needed dryness, itching or redness Tylenol Supp Insert 1 rectally Unknown 06/15/2016 every 4 hrs prn temp >101 Ducodyl 15mg on day 2 if 30tabs K59.00 [facility], 06/15/2016 5mg Tablets Noa ToribioORashmi Guaifenesin 2 tsp po every 4 Unknown 06/15/2016 100mg/5ML hrs prn Liquid Pioneer Saline Nasal [facility], 06/13/2016 Gel Nostrils Twice Elliot D.ORashmi Daily (Dryness) Fleet Enema Insert 1 Rectally [facility], 04/20/2016 On Day 3 Of Joanne Zarate D.O. 7-19GM/118ML Enema Bowel Movement By 4PM as Needed Tab-A-Boo/Iron Take 1 Tablet By 30tabs [facility], 03/15/2016 Mouth Every Day Elliot D.Micah Tablets (Diet Supplement) Ibuprofen taking 2 tabs po 100tabs Max ARashmi 09/30/2015 200mg Tablets every 4 h prn Yohannes Whitlock muscle aches or discomfort Antacid Anti-Gas Unknown 09/30/2015 [phone]/5ML Suspension Vitamin A & D ointment prn Unknown 09/30/2015 Oint Desitin prn Unknown 09/30/2015 Ointment Humira subq inj every Unknown 03/11/2015 40mg/0.8ML PSKT other week as directed Triamcinolone apply twice daily [facility], 08/13/2014 Acetonide for 2 weeks Noa ZarateORashmi 0.1% Ointment alternating with diprolene ,not to face or folds (refer to rx#[id number]) Nasal Moist Gel apply to inside of QS [facility], 02/02/2014 Gel nose 2 x a day # Noa ZarateORashmi 90 day supply. Vectical Apply To Legs 100units L40.0 [facility], 02/20/2012 3mcg/GM Twice Daily After Jaqueline Zarate. Ointment Bath & Before Bed. (Psoriasis) Diprolene Apply To Affected 45units L40.0 [facility], 02/20/2012 0.05% Areas Twice Daily Noa ZarateO. Ointment Times 2 Weeks Alternating With Triamcinolone, Not To Face Or Folds Diapers Adult :Adult Medium 100units Max Bragg 06/27/2011 Pull-Up Due To Yohannes Whitlock Leakage Topiramate take 1 tab twice a 60tabs [facility], 06/05/2011 25mg Tablets day after meals Noa ZarateO. Tylenol give 2 tablets po 60tabs Max Bragg 11/28/2005 325mg Tablets [id number] prn for Yohannes Whitlock pain or fever >101.0f Aspirin Low Dose Take 1 Tablet By 15units [facility], 11/28/2005 81mg Mouth Every Other Hailey Zarate.O. Chewtabs Day (Prevent Heart Disease) Zincon Dandruff 3 x a week [facility], 1% Jaqueline Zarate. Shampoo History Medications Doxycycline Hyclate 1 capsule [...] Indications Ordering Provider Date Toradol 15MG. Marga Dunaway P.A. 09/19/2019 Injection SC/Im Injections Tristian Marks 09/19/2019 Injection Immunizations CPT Code Status Date Vaccine Lot # [id number] Given 08/15/2019 Influenza Vaccine, Inactivated, Subunit, [id number] Adjuvanted, For Intrmusc 72165 Given 06/21/2018 Influenza Vaccine Split Virus Preservative Free Im [id number] Use (hi-dose) 43135 Given 06/20/2017 Influenza Virus Vaccine, Quadrivalent, Split, [id number] Preservative Free 85506 Given 06/16/2016 Influenza Virus Vaccine, Quadrivalent, Split, [id number] Preservative Free 68396 Given 06/14/2015 Zostavax [id number] 33550 Given 06/14/2015 Influenza Virus Vaccine, Quadrivalent, Split, [id number] Preservative Free 96766 Given 06/14/2015 Prevnar 13 [id number] 37849 Given 06/11/2014 Adacel or Boostrix, TDaP [id number] 24757 Given 06/11/2014 Influenza Vaccine Split Virus Preservative Free Im [id number] Use (hi-dose) 64708 Given 07/28/2013 Flu, Split Virus 3Yrs [id number] 57167 Given 07/12/2012 Flu, Split Virus 3Yrs [id number] 18372 Given 08/22/2011 Flu, Split Virus 3Yrs [id number] 64393 Given 08/04/2010 Flu, Split Virus 3Yrs [id number] 01573 Given 09/22/2009 Flu, Split Virus 3Yrs [id number] 59853 Given 08/27/2008 Flu, Split Virus 3Yrs [id number] 90351 Given 08/29/2007 Flu, Split Virus 3Yrs [id number] 95694 Given 08/27/2006 Flu, Split Virus 3Yrs [id number] 78649 Given 03/06/2006 Pneumococcal Immunization [id number] 06129 Given 08/12/2004 Flu, Split Virus 3Yrs 11416 Given 02/10/2004 Td Immunization 03305 Given 08/01/2003 Flu, Split Virus 3Yrs Vital Signs Date Vital Result Comment 12/02/2019 10:01am BP Systolic 144 mmHg BP Diastolic 80 mmHg Weight 173.00 lb Results Test Acquired Date Facility Test Result H/L Range Note Influenza A & B 11/26/2019 [facility] Flu AB (SEE NOTE) 1 Request [phone] Disclaimer Influenza A Molecular Negative Negative Influenza B Molecular Negative Negative 2 CBC Auto Diff 10/15/2019 [facility] White Blood 11.4 10^3/uL High 3.5 -10.8 [phone] Count Red Blood Count 3.50 10^6/uL Low [...] Red Blood Cells % 0.0 Inr/Protime 10/15/2019 [facility] Inr 1.13 High 0.82-1.09 3 [phone] Laboratory test 10/15/2019 [facility] Lactic Acid 1.3 mmol/L Normal 0.5-2.0 4 finding [phone] Ammonia 57 mcmol/L High 16-53 Urinalysis Profile 10/15/2019 [facility] Urine Color Yellow [phone] Urine Appearance Clear Urine Specific Bat[place]lor 1.016 Normal 1.010-1.030 Urine pH 6.0 Normal 5-9 Urine Urobilinogen Negative Negative Urine Ketones Negative Negative Urine Protein Negative Negative Urine Leukocytes 2+ Abnormal Negative Urine Blood Negative Negative * * Abnormal Negative 5 Urine Nitrite Negative Negative Urine Bilirubin Negative Negative Urine Glucose Negative Negative Urine White Blood Cell 3+(>20/hpf) Abnormal Absent Urine Red Blood Cell 2+(6-10/hpf) Abnormal Absent Urine Bacteria 1+ Abnormal Absent Comp Metabolic Panel 10/15/2019 [facility] Sodium 136 mmol/L Normal 135-145 [phone] Potassium 4.2 mmol/L Normal 3.5-5.0 Chloride 106 [...] Egfr Non- 65.5 >60 Egfr 79.2 >60 6 Laboratory test 10/15/2019 [facility] Troponin-I (TnI) 0.02 ng/mL < 0.03 7 finding [phone] Acetaminophen < 15 g/mL 8 Salicylate < 2.50 mg/dL <30 TSH (Thyroid Stim Horm) 1.99 mcIU/mL Normal 0.34-5.60 Urine Drug 10/15/2019 [facility] Urine Amphetamine None Detected None Detect SCR ED & [phone] Screen Pain Clinic Urine Barbiturates Screen None Detected None Detect Urine Benzodiazepine Screen None Detected None Detect Urine Cannabinoids Screen None Detected None Detect Urine Cocaine Screen None Detected None Detect Urine Opiates Screen None Detected None Detect Urine Phencyclidine Screen None Detected None Detect 9 Urine Culture And 10/15/2019 [facility] Urine Culture SEE RESULT 10 Sensitivities [phone] BELOW Basic Metabolic 10/09/2019 [facility] Sodium 139 mmol/L Normal 135-1 Panel [phone] Potassium 4.1 mmol/L Normal 3.5-5.0 Chloride 109 mmol/L Normal 101-111 Co2 Carbon Dioxide 26 mmol/L Normal 22-32 Anion Gap 4 mmol/L Normal 2-11 Glucose 107 mg/dL High 70-100 Blood Urea Nitrogen 35 mg/dL High 6-24 Creatinine 1.25 mg/dL High 0.67-1.17 BUN/Creatinine Ratio 28.0 High 8-20 Calcium 9.3 mg/dL Normal 8.6-10.3 Egfr Non- 55.3 >60 Egfr 66.9 >60 11 CBC Auto Diff 10/09/2019 [facility] White Blood 7.7 10^3/uL Normal 3.5-10.8 [phone] Count Red Blood Count 3.48 10^6/uL Low [...] Blood Cells % 0.0 Laboratory test 09/20/2019 [facility] C Reactive 5.15 mg/L Normal < 8.01 finding [phone] Protein Comp Metabolic 09/20/2019 [facility] Sodium 135 mmol/L Normal 135- 145 Panel [phone] Potassium 3.7 mmol/L Normal 3.5-5.0 Chloride 106 [...] Egfr Non- 48.5 >60 Egfr 58.7 >60 12 Laboratory test 09/20/2019 [facility] Partial 76.3 seconds High 26.0- 38.0 finding [phone] Thrombo Time PTT Inr/Protime 09/20/2019 [facility] Inr 1.16 High 0.82-1.09 13 [phone] CBC Auto Diff 09/20/2019 [facility] White Blood 7.2 10^3/uL Normal 3.5-10.8 [phone] Count Red Blood Count 3.70 10^6/uL Low [...] Red Blood Cells % 0.1 Inr/Protime 09/03/2019 [facility] Inr 1.55 High 0.82-1.09 14 [phone] Basic Metabolic Panel 09/03/2019 [facility] Sodium 135 mmol/L Normal 135-145 [phone] Potassium 4.4 mmol/L Normal 3.5-5.0 Chloride 105 mmol/L Normal 101-111 Co2 Carbon Dioxide 26 mmol/L Normal 22-32 Anion Gap 4 mmol/L Normal 2-11 Glucose 88 mg/dL Normal 70-100 Blood Urea Nitrogen 29 mg/dL High 6-24 Creatinine 1.15 mg/dL Normal 0.67-1.17 BUN/Creatinine Ratio 25.2 High 8-20 Calcium 9.5 mg/dL Normal 8.6-10.3 Egfr Non- 60.9 >60 Egfr 73.7 >60 15 CBC Auto Diff 09/03/2019 [facility] White Blood 7.7 10^3/uL Normal 3.5-10.8 [phone] Count Red Blood Count 4.94 10^6/uL Normal [...] Blood Cells % 0.0 Urinalysis Profile 09/03/2019 [facility] Urine Color Yellow [phone] Urine Appearance Cloudy Urine Specific Bat[place]lor 1.014 Normal 1.010-1.030 Urine pH 6.0 Normal [...] Bacteria Absent Absent Urine Culture And 09/03/2019 [facility] Urine Culture SEE RESULT 16 Sensitivities [phone] BELOW CBC Auto Diff 08/30/2019 [facility] White Blood 7.7 10^3/uL Normal 3.5-7 [phone] Count 0.8 Red Blood Count 5.03 10^6/uL [...] Cells % 0.1 Comp Metabolic Panel 08/30/2019 [facility] Sodium 135 mmol/L Normal 135-145 [phone] Potassium 4.6 mmol/L Normal 3.5-5.0 Chloride 107 [...] Egfr Non- 63.4 >60 Egfr 76.7 >60 17 Laboratory test 08/30/2019 [facility] Troponin-I (TnI) 0.01 ng/mL < 0.04 18 finding [phone] D Dimer Quantitative 356 ng/mL High Less Than 230 19 TSH (Thyroid Stim Horm) 2.17 mcIU/mL Normal 0.34-5.60 B-Type Natriuretic Peptide BNP 54 pg/mL <=100 CBC Auto Diff 07/31/2019 [facility] White Blood 6.9 10^3/uL Normal 3.5-10.8 [phone] Count Red Blood Count 5.27 10^6/uL Normal [...] Cells % 0.0 Comp Metabolic Panel 07/31/2019 [facility] Sodium 135 mmol/L Normal 135-145 [phone] Potassium 4.3 mmol/L Normal 3.5-5.0 Chloride 106 [...] Egfr Non- 58.5 >60 Egfr 70.8 >60 20 Laboratory test 07/31/2019 [facility] TSH (Thyroid 3.99 mcIU/mL Normal 0.34-5.60 finding [phone] Stim Horm) 1 Suboptimal collection technique may reduce sensitivity of test. Refer to the [facility] Test Catalog for collection information: [email or web address] As with all diagnostic procedures, the laboratory results obtained should be used in conjunction with other clinical information available to the physician, including confirmation by another method, as applicable. 2 Poultry Processing Supervisor: [id number] 3 Standard intensity warfarin therapeutic range: 2.0-3.0 High intensity warfarin therapeutic range: 2.5-3.5 4 [place] Severe Sepsis and Septic Shock Management Bundle Measure requires all lactic acids initially measuring >2.0 mmol/L be repeated. 5 *Ascorbic acid is present which may interfere with detection of blood. 6 Because ethnic data is not always [...] 5 Kidney failure <15 (or dialysis) 7 Troponin-I testing on Plasma Separator Tubes (PST) has a known false positive rate of 0.20-0.40%. All positive troponins reflex immediately to secondary confirmatory testing. Using the [employer] DxI 800 Access Immunoassay systems, the 99th percentile upper reference limit was demonstrated to be < 0.03 ng/mL. 8 Therapeutic concentration: <50 ug/mL Toxic concentration: >120 ug/mL 9 The urine specimen was tested at the listed cutoffs: Drug class test level (ng/mL) Amphetamines 500 Barbiturates 200 Benzodiazepine metabolites 200 Cocaine metabolites 150 Cannabinoids 50 Opiates 300 Pcp 25 Specimen was received without chain of custody. Results should be used for medical purposes only. 10 SEE RESULT BELOW Name: CORTNEYTONIALEYLA Grossman : [address]: Myra Hsu MD Acct: [id number] Unit: [id number] AGE: 84 Location: ED Re10/15/19 SEX: M Status: DEP ER SPEC: [id number] LAVERN: 10/15/19-[address] [facility] [address]: Myra Hsu MD REQ: [id number] RECD: 10/15/19 STATUS: SHAHEED SOLANO DR: Elliot Rivera DO _ SOURCE: URINE [facility]: ORDERED: Urine Culture Procedure Result Reported Site Urine Culture Final 10/17/19- 0946 ML No Growth (<1,000 CFU/mL) * ML - Main Lab . END OF REPORT DEPARTMENT OF PATHOLOGY, [address] [place] [address] Jeronimo Santos M.D. Director [facility] # [id number] 11 Because ethnic data is not always [...] 5 Kidney failure <15 (or dialysis) 12 Because ethnic data is not always [...] 5 Kidney failure <15 (or dialysis) 13 Standard intensity warfarin therapeutic range: 2.0-3.0 High intensity warfarin therapeutic range: 2.5-3.5 14 Standard intensity warfarin therapeutic range: 2.0-3.0 [...] 16 SEE RESULT BELOW Name: LEYLA CARRANZA Ngoc : [address]: Jesus Hidalgo MD Acct: [id number] Unit: [id number] AGE: 84 Location: ED Re09/03/19 SEX: M Status: DEP ER SPEC: [id number] LAVERN: 09/03/19-[address] [facility] [address]: Jesus Hidalgo MD REQ: [id number] RECD: 09/03/19-1795 STATUS: SHAHEED SOLANO DR: [facility] Elliot Rivera DO _ SOURCE: URINE SPDESC: ORDERED: Urine Culture Procedure Result Reported Site Urine Culture Final 09/04/19- 1116 ML No Growth (<1,000 CFU/mL) * ML - Main Lab . END OF REPORT DEPARTMENT OF PATHOLOGY, [address] [place] [address] Jeronimo Santos M.D. Director [facility] # [id number] 17 Because ethnic data is not always [...] 5 Kidney failure <15 (or dialysis) 18 Troponin-I testing on Plasma Separator Tubes (PST) has a known false positive rate of 0.20-0.40%. All positive troponins reflex immediately to secondary confirmatory testing. Using the [employer] 800 Access Immunoassay systems, the 99th percentile upper reference limit was demonstrated to be < 0.03 ng/mL. 19 Please note: The following may produce a false positive D Dimer test: - Rheumatoid factor greater than 60 IU/ml - Plasma hemoglobin greater than 0.05 gm/dl - Bilirubin greater than 50 mg/dl - Lipids greater than 1000 mg/dl - FDP greater than 20 ug/ml 20 Because ethnic data is not always [...] dialysis) Procedures Date Code Description Status 09/19/2019 80409 SC/Im Injections Completed 09/14/2006 16878620 Colonoscopy Completed Medical Devices Description No Information Available Encounters Type Date Location Provider Dx Diagnosis Office Visit 10/21/2019 Main Office Kanwal Cerrato, Z01.818 Encounter for other 9:30a preprocedural examination D64.9 Anemia, unspecified N39.0 Urinary tract infection, site not specified Office Visit 09/29/2019 9:45a Main Office Kanwal Cerrato Z01.818 Encounter for other MD Umer preprocedural examination Z79.01 terminal gauger (current) use of anticoagulants E03.9 Hypothyroidism, unspecified [...] of breath Assessments Date Code Description Provider 12/02/2019 J18.9 Pneumonia, unspecified organism Kanwal Cerrato MD 10/21/2019 Z01.818 Encounter for other preprocedural Kanwal Cerrato MD examination 10/21/2019 D64.9 Anemia, unspecified Kanwal Cerrato MD 10/21/2019 N39.0 Urinary tract infection, site not specified Kanwal Cerrato MD 09/29/2019 Z01.818 Encounter for other preprocedural Kanwal Cerrato MD examination 09/29/2019 Z79.01 terminal gauger (current) use of anticoagulants Kanwal Cerrato MD [...] 09/19/2019 F73 Profound intellectual disabilities Marga Dunaway, RuddyA. 09/05/2019 I26.99 Other pulmonary embolism without acute cor SopRashmi perezon , D.O. pulmonale 09/05/2019 R60.9 Edema, unspecified Sopchak, Elliot, D.O. 09/05/2019 K40.30 Unilateral inguinal hernia, with Sopchak, Elliot, D.O. obstruction, without gangrene, not specified as recurrent 09/05/2019 I10 Essential (primary) hypertension Sopchak, Elliot, D.O. 09/05/2019 I73.9 Peripheral vascular disease, unspecified Sopchak, Elliot, D.O. 09/05/2019 R01.1 Cardiac murmur, unspecified Sopchak, Elliot, D.O. 09/05/2019 E03.9 Hypothyroidism, unspecified Sopchak, Elliot, D.O. 09/05/2019 L40.0 Psoriasis vulgaris Sopchak, Elliot, D.O. 09/05/2019 R06.02 Shortness of breath Sopchak, Elliot, D.O. 08/29/2019 R60.9 Edema, unspecified Sopchak, Elliot, D.O. 08/29/2019 K40.30 Unilateral inguinal hernia, with Sopchak, Elliot, D.O. obstruction, without gangrene, not specified as recurrent 08/29/2019 I10 Essential (primary) hypertension Sopchak, Elliot, D.O. 08/29/2019 I73.9 Peripheral vascular disease, unspecified Sopchak, Elliot, D.O. 08/29/2019 R01.1 Cardiac murmur, unspecified Sopchak, Elliot, D.O. 08/29/2019 E03.9 Hypothyroidism, unspecified Sopchak, Elliot, D.O. 08/29/2019 L40.0 Psoriasis vulgaris Sopchak, Elliot, D.O. 08/29/2019 R06.02 Shortness of breath Sopchak, Elliot, D.O. 08/15/2019 Z23 Encounter for immunization Nurse's [...] pm - Elliot Rivera D.O. at Main Jrodcg4409/19/2019 - Tristian MarksK40.30 Unilateral inguinal hernia, with obstruction, without gangrene, not specified as recurrentComments:discussed case with Dr. Rivera who is more familiar with Primo's condition, who agreed pt should togo to the ED. Called ED and reported that we were sending him there was a staff member. Spoke wR60.0 Localized rgoodE80.1 Restlessness and hrffbmehmU76 Profound intellectual disabilities Functional Status Description No Information Available Mental Status Description No Information Available Referrals Refer to Reason for Referral Status Appt Date [facility] Hearing evaluation. Consult [place] [address] [phone]
[2019-12-18 10:46] LABS: ABS Lymphocytes 1.8 10^3/ul (1.0-4.8); ABS Monocytes 0.8 10^3/ul (0-0.8); ABS Neutrophils 4.2 10^3/ul (1.5-7.7); Hematocrit 35 % (42-52); Hemoglobin 11.3 g/dL (14.0-18.0); Lymphocyte % 26.8 %; Mean Corpuscular HGB Conc 32 g/dL (31-36); Mean Corpuscular Hemoglobin 24 pg (27-31); Mean Corpuscular Volume 74 fL (80-94); Mean Platelet Volume 8.3 fL (7.4-10.4); Nucleated Red Blood Cells % 0.1; Platelet Count 325 10^3/uL (150-450); Red Blood Count 4.74 10^6 /uL (4.18-5.48); Red Cell Distribution Width 17 % (10-15); White Blood Count 6.9 10^3/uL (3.5-10.8)
[2019-12-18 10:53] LABS: INR 1.17 (0.82-1.09)
[2019-12-18 11:00] LABS: Troponin I 0.01 ng/mL (<0.03)
[2019-12-18 11:01] LABS: Albumin/Globulin Ratio 1.1 (1-3); BUN/Creatinine Ratio 25.8 (8-20); Calcium 9.7 mg/dL (8.6-10.3); EGFR African American 67.5 (>60); EGFR Non-African American 55.8 (>60); Globulin 3.5 g/dL (2-4); Potassium 4.5 mmol/L (3.5-5.0); Total Bilirubin 0.3 mg/dL (0.2-1.0); Total Protein 7.5 g/dL (6.4-8.9)
[2019-12-18 14:30] VITALS: BP 143/90
== END 2019-12-18 14:29 | disposition home or self-care (01) ==
LOC: ED 09:44
DX: R94.31 Abnormal electrocardiogram [ECG] [EKG] (principal); J98.11 Atelectasis; E03.9 Hypothyroidism, unspecified; I10 Essential (primary) hypertension; F41.9 Anxiety disorder, unspecified; Z79.01 Long term (current) use of anticoagulants; Z79.82 Long term (current) use of aspirin; Z79.899 Other long term (current) drug therapy; Z88.1 Allergy status to other antibiotic agents; Z88.0 Allergy status to penicillin
CPT/HCPCS: 36415; 71045; 80053; 84484; 85025; 85610; 93005; 99283

== ENCOUNTER 2020-02-06 12:43 | Emergency (ER) | payer MEDICARE, MEDICAID ==
[2020-02-06] MEDS ORDERED: LORazepam TAB(*) 1 MG PO ONE (13:30)
--- NOTE | 2020-02-06 13:35 | ED ---
Abdominal Pain/Male - HPI Summary HPI Summary: 85-year-old male with a significant past medical history of hypertension, hypothyroidism, constipation, anxiety, development of delay and intellectual disability presents to the emergency department today with his home health aide who states the swelling in his testicles has increased. Patient has a known inguinal hernia which is followed by general surgeon, Dr. Triana for which he has surgery scheduled in the near future. Patient is nonverbal and adequate history is difficult to obtain however staff state he is not complaining of pain but he has had increased strain with urination and he is "sitting differently". Patient has no issues passing bowel movements and is otherwise well with no evidence of fever, cough, nausea, vomiting, diarrhea, rash. - History of Current Complaint Chief Complaint: EDGeneral Stated Complaint: ABD PAIN Time Seen by Provider: 02/06/20 13:09 Hx Obtained From: Family/Facility Designer Pain Intensity: 0 - Allergies/Home Medications Allergies/Adverse Reactions: Allergies Allergy/AdvReac Type Severity Reaction Status Date / Time amoxicillin [From Augmentin] Allergy Unknown Verified 02/06/20 12:45 Reaction Details clavulanic acid Allergy Unknown Verified 02/06/20 12:45 [From Augmentin] Reaction Details Home Medications: Home Medications LoraTADine TAB(NF) [Claritin 10 MG TAB(NF)] 10 mg PO DAILY 07/22/12 [History Confirmed 02/06/20] Topiramate TAB(*) [Topamax 25 MG tab] 25 mg PO BID 07/22/12 [History Confirmed 02/06/20] chlorproMAZINE TAB* [Thorazine 25 MG TAB*] 25 mg PO QPM 07/22/12 [History Confirmed 02/06/20] Ibuprofen TAB* [Advil TAB*] 400 mg PO Q6H PRN 08/17/15 [History Confirmed ] Acetaminophen TAB* [Tylenol TAB*] 650 mg PO Q4H PRN MDD 12 tabs 04/14/18 [ History Confirmed 02/06/20] Bisacodyl [Dulcolax] 15 mg PO Q2D PRN 04/14/18 [History Confirmed 02/06/20] Sodium Phosphate ADULT ENEMA* [Fleet Enema*] 1 enema [place] Q3D PRN 04/14/18 [ History Confirmed 02/06/20] guaiFENesin 100 mg/5 ml LIQ [Robitussin 100 mg/5ml LIQ] 10 ml PO Q4H PRN [History Confirmed 02/06/20] Metoprolol Tartrate TAB* [Lopressor TAB*] 25 mg PO BID #60 tab 04/18/18 [Rx Confirmed 02/06/20] Tamsulosin CAP* [Flomax CAP*] 0.4 mg PO DAILY #30 cap 04/18/18 [Rx Confirmed ] Betamethasone Dip 0.05% ON(NF) [Betamethasone Dipr 0.05% OINT(NF)] 1 applic TOPICAL BID 06/04/18 [History Confirmed 02/06/20] Chlorhexidine MOUTHWASH 0.12%* [Peridex Mouth Wash 0.12%*] 5 ml MT BID 06/04/18 [History Confirmed 02/06/20] Docusate CAP* [Colace Cap*] 200 mg PO BID 06/04/18 [History Confirmed 02/06/20] Levothyroxine TAB* [Synthroid TAB*] 50 mcg PO DAILY 06/04/18 [History Confirmed 02/06/20] clonazePAM TAB(*) [Klonopin TAB(*)] 0.25 mg PO QAM MDD 0.75mg 06/04/18 [History Confirmed 02/06/20] Aspirin EC TAB* [Ecotrin EC Low Dose 81 MG*] 81 mg PO EVERY OTHER DAY 05/13/19 [ History Confirmed 02/06/20] Cholecalciferol (Vitamin D3) [Vitamin D3] 5,000 unit PO DAILY 05/13/19 [History Confirmed 02/06/20] Finasteride TAB* [Proscar TAB*] 5 mg PO DAILY 05/13/19 [History Confirmed ] Hydrocortisone Valerate 1 applic TOPICAL BID 05/13/19 [History Confirmed ] Lactulose* 30 ml PO DAILY PRN 05/13/19 [History Confirmed 02/06/20] Polyethylene Glycol 3350* [Miralax (17 GM DOSE FELI)] 17 gm PO DAILY 05/13/19 [ History Confirmed 02/06/20] Propylene Glycol/Peg 400/Pf [Systane 0.3-0.4% Eye Drop] 1 drop BOTH EYES Q4HR PRN 05/13/19 [History Confirmed 02/06/20] Vitamins A & D OINT* [Vitamin A & D Oint*] 1 applic TOPICAL BID PRN 05/13/19 [ History Confirmed 02/06/20] Zinc Oxide [Desitin] 13 % TOPICAL BID 05/13/19 [History Confirmed 02/06/20] Atorvastatin* [Lipitor 80 MG*] 80 mg PO DAILY 10/15/19 [History Confirmed ] Bacitracin OINTMENT* 1 applic TOPICAL BID 10/15/19 [History Confirmed 02/06/20] Al Hydrox/Mg Hydrox/Simet LIQ* [Maalox Plus*] 10 ml PO TID PRN MDD 8 tsp [History Confirmed 02/06/20] Ceramides 1,3,6-11 [Cerave] 1 applic TOPICAL BID 11/26/19 [History Confirmed ] [place] Tar [Tarsum Professional] 1 applic TOPICAL DAILY 11/26/19 [History Confirmed 02/06/20] Saline NASAL SPRAY 0.65%* [Sodium Chloride 0.65% Nasal [place]*] 1 spray BOTH NARES DAILY PRN 11/26/19 [History Confirmed 02/06/20] Sodium Chloride/Aloe Vera [[place] Saline Nasal] 1 applic BOTH NARES BID 11/26/19 [ History Confirmed 02/06/20] calcitrioL [Vectical] 1 applic TOPICAL BEDTIME 11/26/19 [History Confirmed 02/05] clonazePAM [Clonazepam Odt] 0.25 mg PO BEDTIME PRN MDD 0.75mg 11/26/19 [History Confirmed 02/06/20] Adalimumab (NF) [Humira (NF) Pen Injector Kit] 1 dose SUBCUT .EVERY OTHER WEEK 02/06/20 [History Confirmed 02/06/20] Clobetasol/Calcipotriene [Calcipotr 0.005%-Clobeta 0.05%] 1 applic TOPICAL BID 02/06/20 [History Confirmed 02/06/20] Head & Shoulders Shampoo 1% 1 applic TOPICAL MOWEFR 02/06/20 [History Confirmed 02/06/20] Multivitamins/Minerals TAB* [Theragran/minerals TAB*] 1 tab PO DAILY 02/06/20 [ History Confirmed 02/06/20] Triamcinolone 0.025% CM(NF) [Kenalog Cream 0.025%*] 1 applic TOPICAL DAILY 02/05 [History Confirmed 02/06/20] PMH/Surg Hx/FS Hx/Imm Hx Endocrine/Hematology History: Reports: Hx Thyroid Disease - hypo Denies: Hx Diabetes Cardiovascular History: Reports: Hx Hypertension Respiratory History: Denies: Hx Asthma, Hx Chronic Obstructive Pulmonary Disease (COPD) GI History: Reports: Other GI Disorders - chronic constipation Denies: Hx Ulcer History: Reports: Other Problems/Disorders - Bilateral inguinal hernia Sensory History: Reports: Hx Cataracts - BILAT Denies: Hx Contacts or Glasses, Hx Legally Blind, Hx Deafness, Hx Hearing Aid Opthamlomology History: Reports: Hx Cataracts - BILAT Denies: Hx Contacts or Glasses, Hx Legally Blind Neurological History: Reports: Hx Developmental Delay, Other Neuro Impairments/ Disorders - [place] Palsy Psychiatric History: Reports: Hx Anxiety - excessive, 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 - Surgical History Surgery Procedure, Year, and Place: None Hx Anesthesia Reactions: No - UNKNOWN - Immunization History Date of Tetanus Vaccine: utd Date of Influenza Vaccine: utd Infectious Disease History: No Infectious Disease History: 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 Denies: Hx Clostridium Difficile, Hx Hepatitis, Hx Human Immunodeficiency Virus (HIV), Hx of Known/Suspected MRSA, Hx Shingles, Hx Known/Suspected VRE, Hx Known/Suspected VRSA, History Other Infectious Disease, Traveled Outside the [place] in Last 30 Days - Family History Known Family History: Positive: Unknown - LEVEL 5 CAVEAT secondary to MR Negative: Hypertension, Diabetes - Social History Alcohol Use: None Hx Substance Use: No Substance Use Type: Reports: None Hx Tobacco Use: No Smoking Status (MU): Never Smoked Tobacco Review of Systems Negative: Fever Negative: Epistaxis Negative: Cough Negative: Vomiting Negative: Rash Positive: Anxious All Other Systems Reviewed And Are Negative: Yes Physical Exam - Summary Physical Exam Summary: Patient does not verbal. Patient does not appear to be in any pain distress. Inspection reveals a large right inguinal hernia which extends into the scrotum. No evidence of bowel obstruction or urinary obstruction or erythema, ecchymosis or cyanosis. Patient has no pain with palpation of the hernia sac or testicles. Triage Information Reviewed: Yes Vital Signs On Initial Exam: Initial Vitals Temp Pulse Resp BP Pulse Ox 98.2 F 60 20 000/00 0 02/06/20 12:45 02/06/20 12:45 02/06/20 12:45 02/06/20 12:45 02/06/20 12:45 Vital Signs Reviewed: Yes Appearance: Positive: Well-Appearing, No Pain Distress, Well-Nourished Skin: Positive: Warm, Skin Color Reflects Adequate Perfusion Eyes: Positive: EOMI, MARILYN ENT: Positive: Hearing grossly normal Respiratory/Lung Sounds: Positive: Clear to Auscultation, Breath Sounds Present Cardiovascular: Positive: RRR, S1, S2 Abdomen Description: Positive: Nontender, Soft Bowel Sounds: Positive: Present Male Genital Exam: Positive: Hernia Mass. Negative: No Hernia, Epididymal Tenderness, Erythema, Inguinal Tenderness, Scrotum Tenderness (R), Scrotum Tenderness (L), Testicular Tenderness (R), Testicular Tenderness (L) Musculoskeletal: Positive: Strength/ROM Intact Neurological: Positive: Sensory/Motor Intact, Facial Symmetry Psychiatric: Positive: Patient Uncooperative for Exam AVPU Assessment: Alert Procedures - Sedation Patient Received Moderate/Deep Sedation with Procedure: No Diagnostics - Vital Signs Vital Signs Temp Pulse Resp BP Pulse Ox 02/06/20 12:45 98.2 F 60 20 000/00 0 - Laboratory Lab Statement: Any lab studies that have been ordered have been reviewed, and results considered in the medical decision making process. Abdominal Pain Male Course/Dx - Course Course Of Treatment: Patient was evaluated in the emergency department today for right inguinal hernia. Vitals noted and stable. Patient was uncooperative for exam and he is nonverbal thus history and physical was difficult to obtain. Physical exam is consistent with a nonincarcerated nonobstructing right scrotal inguinal hernia. Patient had no tenderness with palpation of the testicles or scrotum and there is no erythema or suggestion of ischemia. Patient was able to pass bowel movements and urinate in the emergency department. Surgery, SHYANN Vang was consulted who came to examine the patient and was able to reduce this hernia. Patient has a scheduled surgery for hernia reduction and repair in April with Dr. Triana. Patient is discharged to outpatient follow-up with surgery. - Diagnoses Differential Diagnosis/HQI/PQRI: Other - Inguinal hernia bowel obstruction, incarcerated hernia Provider Diagnoses: Reducible inguinal hernia - Critical Care Time Critical Care Statement: Critical care time is provided exclusive of any time spent performing procedures. Discharge ED - Sign-Out/Discharge Documenting (check all that apply): Patient Departure - Discharge Plan Condition: Stable Disposition: HOME Patient Education Materials: Inguinal Hernia (ED) Referrals: Jorje Triana MD [Medical Doctor] - 3 Days Additional Instructions: Please follow up with surgery in 3-4 days for further evaluation and management. Please monitor him for difficulties with urination. Please monitor him for difficulties passing bowel movements. Please return to this emergency department immediately should he develop any new or worsening symptoms such as significant pain or intractable vomiting. - Billing Disposition and Condition Condition: STABLE Disposition: Home
--- OUTSIDE RECORDS SUMMARY | 2020-02-06 13:44 | XMS REPORT | Continuity of Care Document ---
:1935 External Reference #:[id number] Author Name Kanwal Cerrato MD (transmitted by agent of provider Linda Noel) Address [address] [place] [address] Care Team Providers Name Role Phone Ben Thompson MD - Care Team Information Computer Typesetter [phone] Otolaryngology Miguelito Mejia MD - Internal Care Team Information Computer Typesetter [phone] [facility] - Surgery Care Team Information Computer Typesetter Problems Active Problems Provider Date Hypothyroidism Max [...] Provider Calcipotriene apply to affected 60units L40.0 [facility], 12/16/2019 0.005% legs twice a day Elliot, D.O. Cream after bath for relief of psoriasis Peg 3350 1 Capful 510units K59.03 [facility], 11/14/2019 Powder (17GM=20cc) 8 Oz Elliot, D.O. 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 Solution every day (constipation) hold for >3 bm per day or diarrhea Clonazepam take 1 tablet by 1tabs I10 [facility], 08/29/2019 0.5mg mouth 30 min prior Elliot, D.O. Tablets to ekg Vitamin D3 Take One Tablet By 30tabs [facility], 07/07/2019 5000Unit Mouth Every Day Elliot, D.O. Tablet (Diet Supplement) Levothyroxine Sodium Take 1 Tablet By 30tabs E03.9 [facility], 05/30/2019 Mouth Every Day Elliot, D.O. 50mcg Tablets (Hypothyroidism) Clonazepam 1 po every morning Unknown 05/12/2019 0.25mg before breakfast Tablets Dispers for anxiety Clonazepam 1 po at bedtime Unknown 05/12/2019 0.5mg for anxiety Tablets Dispers Allergy Take 1 Tablet By 90tabs [facility], 04/24/2019 10mg Tablets Mouth Every Day Elliot, D.O. (For Allergies) Atorvastatin Calcium Take 1 Tablet By 90tabs E78.4 [facility], 04/10/2019 Mouth Every Day Elliot, D.O. 80mg Tablets (1700=5PM) Colace take 2 capsules by 180caps K59.01 [facility], 03/25/2019 100mg Capsules mouth twice a day Elliot, D.O. (stool softening) Ear Flushing do not flush ears [facility], 03/21/2019 until ear drum has Elliot, D.O. been visualized without defect. Saline Mist Acton Acton Once In Each 45units J31.0 [facility], 12/19/2018 0.65% Nostril Daily Elliot, D.O. Solution (Dryness) Tarsum Professional 2 Capfuls AT Bath 236units [facility], 11/27/2018 2% Time Every Day Elliot, D.O. Shampoo (Tar Bath) For Washing Body Finasteride Take 1 Tablet By 30tabs [facility], 10/21/2018 5mg Tablets Mouth Every Day Elliot, D.O. Metoprolol Tartrate (Take BP Prior To 60tabs I10 [facility], 09/12/2018 Giving This Med) 1 Elliot, D.O. 25mg Tablets Tab By Mouth 2 Times A Day * Hold If BP Lower Than 90/60 Or Pulse Lower Than 60 Take Vitals First Systane Ultra 1 drop both eyes 75units [facility], 05/15/2018 Preservative Free as needed every 4 Elliot, D.O. hours for dry eyes 0.4-0.3% Solution as needed Tamsulosin HCL 1 by mouth every 90caps [facility], 04/18/2018 0.4mg day Elliot, D.O. Capsules Chlorhexidine Swab 1 Teaspoon On 473units [facility], 04/18/2018 Gluconate Gums Twice Daily Elliot, D.O. 0.12% For Oral Care Solution Zincon 1% Use 3 Times Weekly 118units [facility], 06/26/2017 Shampoo Elliot, D.O. Bacitracin (External) apply small amount Unknown 05/15/2017 to affected area 500Unit/GM Ointment twice daily as needed for minor skin abrasions/open sores Acetaminophen 2 by mouth every 8 120tabs M25.541 [facility], 05/15/2017 325mg hours, as needed, Yohannes Tavera Tablets ,may receive daily Cerave [facility] 02/[facility]2017 Cream Twice Daily (Dry Arianna Zarate Skin) Am=After Bath/ PM=Before Bed Hydrocortisone apply to facial 45gm L40.0 [facility], 06/15/2016 Valerate lesions twice a Arianna Zarate 0.2% Cream day as needed dryness, itching or redness Tylenol Supp Insert 1 rectally Unknown 06/15/2016 every 4 hrs prn temp >101 Ducodyl 15mg on day 2 if 30tabs K59.00 [facility], 06/15/[address] joanne Zarate D.O. Guaifenesin 2 tsp po every 4 Unknown 06/15/2016 100mg/5ML hrs prn Liquid [place] Saline Nasal [facility] 06/13/2016 Gel Nostrils Twice Arianna Zarate Daily (Dryness) Fleet Enema Insert 1 Rectally [facility], 04/20/2016 On Day 3 Of Joanne Zarate D.O. 7-19GM/118ML Enema Bowel Movement By 4PM as Needed Tab-A-Boo/Iron Take 1 Tablet By 30tabs [facility], 03/15/2016 Mouth Every Day Arianna Zarate Tablets (Diet Supplement) Ibuprofen taking 2 tabs po 100tabs Max Bragg 09/30/2015 200mg Tablets every 4 h prn Yohannes Whitlock muscle aches or discomfort Antacid Anti-Gas Unknown 09/30/[phone]/5ML Suspension Vitamin A & D ointment prn Unknown 09/30/2015 Oint Desitin prn Unknown 09/30/2015 Ointment Humira subq inj every Unknown 03/11/2015 40mg/0.8ML PSKT other week as directed Triamcinolone apply twice daily [facility], 08/13/2014 Acetonide for 2 weeks Arianna Zarate 0.1% Ointment alternating with diprolene ,not to face or folds (refer to rx#[id number]) Nasal Moist Gel apply to inside of [facility], 02/02/2014 Gel nose 2 x a day # Jaqueline Zarate. 90 day supply. Vectical Apply To Legs 100units L40.0 [facility], 02/20/2012 3mcg/GM Twice Daily After Elliot D.O. Ointment Bath & Before Bed. (Psoriasis) Diprolene Apply To Affected 45units L40.0 [facility], 02/20/2012 0.05% Areas Twice Daily Elliot D.O. Ointment Times 2 Weeks Alternating With Triamcinolone, Not To Face Or Folds Diapers Adult :Adult Medium 100units Max Bragg 06/27/2011 Pull-Up Due To Yohannes Whitlock Leakage Topiramate take 1 tab twice a 60tabs [facility], 06/05/2011 25mg Tablets day after meals Jaqueline Zarate. Tylenol give 2 tablets po 60tabs Max Bragg 11/28/2005 325mg Tablets [id number] prn for Yohannes Whitlock pain or fever >101.0f Aspirin Low Dose Take 1 Tablet By 15units [facility], 11/28/2005 81mg Mouth Every Other Elliot D.O. Chewtabs Day (Prevent Heart Disease) Zincon Dandruff 3 x a week [facility], 1% Elliot D.O. Shampoo History Medications Doxycycline [...] CPT Code Status Date Vaccine Lot # 14617 Given 08/15/2019 Influenza Vaccine, Inactivated, Subunit, [id number] Adjuvanted, For Intrmusc 06757 Given 06/21/2018 Influenza Vaccine Split Virus Preservative Free Im [id number] Use (hi-dose) 28605 Given 06/20/2017 Influenza Virus Vaccine, Quadrivalent, Split, [id number] Preservative Free 98224 Given 06/16/2016 Influenza Virus Vaccine, Quadrivalent, Split, [id number] Preservative Free 67371 Given 06/14/2015 Zostavax [id number] 76177 Given 06/14/2015 Influenza Virus Vaccine, Quadrivalent, Split, [id number] Preservative Free 85816 Given 06/14/2015 Prevnar 13 [id number] 79458 Given 06/11/2014 Adacel or Boostrix, TDaP [id number] 41228 Given 06/11/2014 Influenza Vaccine Split Virus Preservative Free Im [id number] Use (hi-dose) 92605 Given 07/28/2013 Flu, Split Virus 3Yrs [id number] 81026 Given 07/12/2012 Flu, Split Virus 3Yrs [id number] 40895 Given 08/22/2011 Flu, Split Virus 3Yrs [id number] 39795 Given 08/04/2010 Flu, Split Virus 3Yrs [id number] 83004 Given 09/22/2009 Flu, Split Virus 3Yrs [id number] 01282 Given 08/27/2008 Flu, Split Virus 3Yrs [id number] 07214 Given 08/29/2007 Flu, Split Virus 3Yrs [id number] 10519 Given 08/27/2006 Flu, Split Virus 3Yrs [id number] 36438 Given 03/06/2006 Pneumococcal Immunization [id number] 08506 Given 08/12/2004 Flu, Split Virus 3Yrs 79461 Given 02/10/2004 Td Immunization 41567 Given 08/01/2003 Flu, Split Virus 3Yrs Vital Signs Date Vital Result Comment 12/02/2019 10:01am BP Systolic 144 mmHg BP Diastolic 80 mmHg Weight 173.00 lb Results Test Acquired Date Facility Test Result H/L Range Note Laboratory test 12/18/2019 [facility] Troponin-I 0.01 ng/mL <0.03 1 finding [phone] (TnI) Inr/Protime 12/18/2019 [facility] Inr 1.17 High 0.82-1.09 2 [phone] CBC Auto Diff 12/18/2019 [facility] White 6.9 10^3/uL Normal 3.5- 10.8 [phone] Blood Count Red Blood Count 4.74 10^6/uL Normal 4.18-5.48 Hemoglobin 11.3 g/dL Low 14.0-18.0 Hematocrit 35 % Low 42-52 Mean Corpuscular Volume 74 fL Low 80-94 Mean Corpuscular Hemoglobin 24 pg Low 27-31 Mean Corpuscular HGB Conc 32 g/dL Normal 31-36 Red Cell Distribution Width 17 % High 10-15 Platelet Count 325 10^3/uL Normal 150-450 Mean Platelet Volume 8.3 fL Normal 7.4-10.4 Abs Neutrophils 4.2 10^3/uL Normal 1.5-7.7 Abs Lymphocytes 1.8 10^3/uL Normal 1.0-4.8 Abs Monocytes 0.8 10^3/uL Normal 0-0.8 Abs Eosinophils 0.0 10^3/uL Normal 0-0.6 Abs Basophils 0.0 10^3/uL Normal 0-0.2 Abs Nucleated RBC 0.0 10^3/uL Granulocyte % 61.4 % Lymphocyte % 26.8 % Monocyte % 11.7 % Eosinophil % 0.0 % Basophil % 0.1 % Nucleated Red Blood Cells % 0.1 Laboratory test 12/18/2019 [facility] Troponin-I (TnI) 0.01 ng/mL < 0.03 3 finding [phone] Comp Metabolic 12/18/2019 [facility] Sodium 136 mmol/L Normal 135- 145 Panel [phone] Potassium 4.5 mmol/L Normal 3.5-5.0 Chloride 108 mmol/L Normal 101-111 Co2 Carbon Dioxide 21 mmol/L Low 22-32 Anion Gap 7 mmol/L Normal 2-11 Glucose 105 mg/dL High 70-100 Blood Urea Nitrogen 32 mg/dL High 6-24 Creatinine 1.24 mg/dL High 0.67-1.17 BUN/Creatinine Ratio 25.8 High 8-20 Calcium 9.7 mg/dL Normal 8.6-10.3 Total Protein 7.5 g/dL Normal 6.4-8.9 Albumin 4.0 g/dL Normal 3.2-5.2 Globulin 3.5 g/dL Normal 2-4 Albumin/Globulin Ratio 1.1 Normal 1-3 Total Bilirubin 0.30 mg/dL Normal 0.2-1.0 Alkaline Phosphatase 78 U/L Normal 34-104 Alt 24 U/L Normal 7-52 Ast 29 U/L Normal 13-39 Egfr Non- 55.8 >60 Egfr 67.5 >60 4 Lipid Profile 12/11/2019 [facility] Triglycerides 126 mg/dL 5, 6 (Trig/Chol/HDL) [phone] Cholesterol 130 mg/dL 7 HDL Cholesterol 32.3 mg/dL 8 LDL Cholesterol 73 mg/dL 9 Influenza A & B 11/26/2019 [facility] Flu AB Disclaimer (SEE NOTE) 10 Request [phone] Influenza A Molecular Negative Negative Influenza B Molecular Negative Negative 11 Urine Culture And 10/15/2019 [facility] Urine Culture SEE RESULT 12 Sensitivities [phone] BELOW Urine Drug SCR ED 10/15/2019 [facility] Urine None None & [facility] [phone] Amphetamine Detected Detect Screen Urine Barbiturates Screen None Detected None Detect Urine Benzodiazepine Screen None Detected None Detect Urine Cannabinoids Screen None Detected None Detect Urine Cocaine Screen None Detected None Detect Urine Opiates Screen None Detected None Detect Urine Phencyclidine Screen None Detected None Detect 13 Laboratory test 10/15/2019 [facility] Troponin-I (TnI) 0.02 ng/mL < 0.03 14 finding [phone] Acetaminophen < 15 g/mL 15 Salicylate < 2.50 mg/dL <30 TSH (Thyroid Stim Horm) 1.99 mcIU/mL Normal 0.34-5.60 Comp Metabolic Panel 10/15/2019 [facility] Sodium 136 mmol/L Normal 135-145 [phone] Potassium 4.2 mmol/L Normal 3.5-5.0 Chloride 106 [...] Egfr Non- 65.5 >60 Egfr 79.2 >60 16 Urinalysis Profile 10/15/2019 [facility] Urine Color Yellow [phone] Urine Appearance Clear Urine Specific Walton 1.016 Normal 1.010-1.030 Urine pH 6.0 Normal 5-9 Urine Urobilinogen Negative Negative Urine Ketones Negative Negative Urine Protein Negative Negative Urine Leukocytes 2+ Abnormal Negative Urine Blood Negative Negative * * Abnormal Negative 17 Urine Nitrite Negative Negative Urine Bilirubin Negative Negative Urine Glucose Negative Negative Urine White Blood Cell 3+(>20/hpf) Abnormal Absent Urine Red Blood Cell 2+(6-10/hpf) Abnormal Absent Urine Bacteria 1+ Abnormal Absent Laboratory test 10/15/2019 [facility] Lactic Acid 1.3 mmol/L Normal 0.5-2.0 18 finding [phone] Ammonia 57 mcmol/L High 16-53 Inr/Protime 10/15/2019 [facility] Inr 1.13 High 0.82-1.09 19 [phone] CBC Auto Diff 10/15/2019 [facility] White Blood 11.4 10^3/uL High 3.5 -10.8 [phone] Count Red Blood Count 3.50 10^6/uL Low [...] % Nucleated Red Blood Cells % 0.0 Basic Metabolic Panel 10/09/2019 [facility] Sodium 139 mmol/L Normal 135-145 [phone] Potassium 4.1 mmol/L Normal 3.5-5.0 Chloride 109 mmol/L Normal 101-111 Co2 Carbon Dioxide 26 mmol/L Normal 22-32 Anion Gap 4 mmol/L Normal 2-11 Glucose 107 mg/dL High 70-100 Blood Urea Nitrogen 35 mg/dL High 6-24 Creatinine 1.25 mg/dL High 0.67-1.17 BUN/Creatinine Ratio 28.0 High 8-20 Calcium 9.3 mg/dL Normal 8.6-10.3 Egfr Non- 55.3 >60 Egfr 66.9 >60 20 CBC Auto Diff 10/09/2019 [facility] White Blood 7.7 10^3/uL Normal 3.5-10.8 [phone] Count Red Blood Count 3.48 10^6/uL Low [...] Blood Cells % 0.0 Laboratory test 09/20/2019 [facility] C Reactive 5.15 mg/L Normal < 8.01 finding [phone] Protein Comp Metabolic 09/20/2019 [facility] Sodium 135 mmol/L Normal 135- 145 Panel [phone] Potassium 3.7 mmol/L Normal 3.5-5.0 Chloride 106 [...] Egfr Non- 48.5 >60 Egfr 58.7 >60 21 Laboratory test 09/20/2019 [facility] Partial 76.3 seconds High 26.0- 38.0 finding [phone] Thrombo Time PTT Inr/Protime 09/20/2019 [facility] Inr 1.16 High 0.82-1.09 22 [phone] CBC Auto Diff 09/20/2019 [facility] White Blood 7.2 10^3/uL Normal 3.5-10.8 [phone] Count Red Blood Count 3.70 10^6/uL Low [...] Red Blood Cells % 0.1 Inr/Protime 09/03/2019 [facility] Inr 1.55 High 0.82-1.09 23 [phone] Basic Metabolic Panel 09/03/2019 [facility] Sodium 135 mmol/L Normal 135-145 [phone] Potassium 4.4 mmol/L Normal 3.5-5.0 Chloride 105 mmol/L Normal 101-111 Co2 Carbon Dioxide 26 mmol/L Normal 22-32 Anion Gap 4 mmol/L Normal 2-11 Glucose 88 mg/dL Normal 70-100 Blood Urea Nitrogen 29 mg/dL High 6-24 Creatinine 1.15 mg/dL Normal 0.67-1.17 BUN/Creatinine Ratio 25.2 High 8-20 Calcium 9.5 mg/dL Normal 8.6-10.3 Egfr Non- 60.9 >60 Egfr 73.7 >60 24 CBC Auto Diff 09/03/2019 [facility] White Blood 7.7 10^3/uL Normal 3.5-10.8 [phone] Count Red Blood Count 4.94 10^6/uL Normal [...] Blood Cells % 0.0 Urinalysis Profile 09/03/2019 [facility] Urine Color Yellow [phone] Urine Appearance Cloudy Urine Specific Walton 1.014 Normal 1.010-1.030 Urine pH 6.0 Normal [...] Bacteria Absent Absent Urine Culture And 09/03/2019 [facility] Urine Culture SEE RESULT 25 Sensitivities [phone] BELOW CBC Auto Diff 08/30/2019 [facility] White Blood 7.7 10^3/uL Normal 3.5-6 [phone] Count 0.8 Red Blood Count 5.03 10^6/uL [...] Cells % 0.1 Comp Metabolic Panel 08/30/2019 [facility] Sodium 135 mmol/L Normal 135-145 [phone] Potassium 4.6 mmol/L Normal 3.5-5.0 Chloride 107 [...] Egfr Non- 63.4 >60 Egfr 76.7 >60 26 Laboratory test 08/30/2019 [facility] Troponin-I (TnI) 0.01 ng/mL < 0.04 27 finding [phone] D Dimer Quantitative 356 ng/mL High Less Than 230 28 TSH (Thyroid Stim Horm) 2.17 mcIU/mL Normal 0.34-5.60 B-Type Natriuretic Peptide BNP 54 pg/mL <=100 CBC Auto Diff 07/31/2019 [facility] White Blood 6.9 10^3/uL Normal 3.5-10.8 [phone] Count Red Blood Count 5.27 10^6/uL Normal [...] Cells % 0.0 Comp Metabolic Panel 07/31/2019 [facility] Sodium 135 mmol/L Normal 135-145 [phone] Potassium 4.3 mmol/L Normal 3.5-5.0 Chloride 106 [...] Egfr Non- 58.5 >60 Egfr 70.8 >60 29 Laboratory test 07/31/2019 [facility] TSH (Thyroid 3.99 mcIU/mL Normal 0.34-5.60 finding [phone] Stim Horm) 1 Troponin-I testing on Plasma Separator Tubes (PST) has a known false positive rate of 0.20-0.40%. All positive troponins reflex immediately to secondary confirmatory testing. Using the [employer] DxI 800 Access Immunoassay systems, the 99th percentile upper reference limit was demonstrated to be < 0.03 ng/mL. 2 Standard intensity warfarin therapeutic range: 2.0-3.0 High intensity warfarin therapeutic range: 2.5-3.5 3 Troponin-I testing on Plasma Separator Tubes (PST) has a known false positive rate of 0.20-0.40%. All positive troponins reflex immediately to secondary confirmatory testing. Using the [employer] DxI 800 Access Immunoassay systems, the 99th percentile upper reference limit was demonstrated to be < 0.03 ng/mL. 4 Because ethnic data is not always [...] 5 Kidney failure <15 (or dialysis) 5 [id number] Desirable: <150 Borderline High: 150-199 High: 200-499 Very High: >500 7 Desirable: <200 Borderline High: 200-239 High: >239 8 Low: <40 Desirable: 40-60 High: >60 9 Desirable: <100 Near Optimal: 100-129 Borderline High: 130-159 High: 160-189 Very High: >189 10 Suboptimal collection technique may reduce sensitivity of test. Refer to the [employer] Lab Test Catalog for collection information: [email or web address] As with all diagnostic procedures, the laboratory results obtained should be used in conjunction with other clinical information available to the physician, including confirmation by another method, as applicable. 11 Varnish Maker: [id number] 12 SEE RESULT BELOW Name: LEYLA CARRANZA : [address]: Myra Hsu MD Acct: [id number] Unit: [id number] AGE: 84 Location: ED Re10/15/19 SEX: M Status: DEP ER SPEC: [id number] LAVERN: 10/15/[address] [facility] [address]: Myra Hsu MD REQ: [id number] RECD: 10/15/19 STATUS: SHAHEED SOLANO DR: Elliot Rivera DO _ SOURCE: URINE [facility]: ORDERED: Urine Culture Procedure Result Reported Site Urine Culture Final 10/17/19- 46 ML No Growth (<1,000 CFU/mL) * ML - Main Lab . END OF REPORT DEPARTMENT OF PATHOLOGY, [address] [place] [address] Jeronimo Santos M.D. Director [facility] # [id number] 13 The urine specimen was tested at the listed cutoffs: Drug class test level (ng/mL) Amphetamines 500 Barbiturates 200 Benzodiazepine metabolites 200 Cocaine metabolites 150 Cannabinoids 50 Opiates 300 Pcp 25 Specimen was received without chain of custody. Results should be used for medical purposes only. 14 Troponin-I testing on Plasma Separator Tubes (PST) has a known false positive rate of 0.20-0.40%. All positive troponins reflex immediately to secondary confirmatory testing. Using the [employer] DxI 800 Access Immunoassay systems, the 99th percentile upper reference limit was demonstrated to be < 0.03 ng/mL. 15 Therapeutic concentration: <50 ug/mL Toxic concentration: >120 ug/mL 16 Because ethnic data is not always [...] 5 Kidney failure <15 (or dialysis) 17 *Ascorbic acid is present which may interfere with detection of blood. 18 [facility] Severe Sepsis and Septic Shock Management Bundle Measure requires all lactic acids initially measuring >2.0 mmol/L be repeated. 19 Standard intensity warfarin therapeutic range: 2.0-3.0 [...] 5 Kidney failure <15 (or dialysis) 21 Because ethnic data is not always readily [...] 15-29 5 Kidney failure <15 (or dialysis) 22 Standard intensity warfarin therapeutic range: 2.0-3.0 High intensity warfarin therapeutic range: 2.5-3.5 23 Standard intensity warfarin therapeutic range: 2.0-3.0 High intensity warfarin therapeutic range: 2.5-3.5 24 Because ethnic data is not always [...] 5 Kidney failure <15 (or dialysis) 25 SEE RESULT BELOW Name: LEYLA CARRANZA Ngoc : [address]: Jesus Hidalgo MD Acct: [id number] Unit: [id number] AGE: 84 Location: ED Re09/03/19 SEX: M Status: DEP ER SPEC: [id number] LAVERN: 09/03/19-[address] [facility] [address]: Jesus Hidalgo MD REQ: [id number] RECD: 09/03/195125 STATUS: SHAHEED SOLANO DR: [facility] Elliot Rivera DO _ SOURCE: URINE [facility]: ORDERED: Urine Culture Procedure Result Reported Site Urine Culture Final 09/04/19- 1116 ML No Growth (<1,000 CFU/mL) * ML - Main Lab . END OF REPORT DEPARTMENT OF PATHOLOGY, [address] [place] [address] Jeronimo Santos M.D. Director [facility] # [id number] 26 Because ethnic data is not always readily [...] 15-29 5 Kidney failure <15 (or dialysis) 27 Troponin-I testing on Plasma Separator Tubes (PST) has a known false positive rate of 0.20-0.40%. All positive troponins reflex immediately to secondary confirmatory testing. Using the [employer] DxI 800 Access Immunoassay systems, the 99th percentile upper reference limit was demonstrated to be < 0.03 ng/mL. 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 08/29/2019 L40.0 Psoriasis vulgaris Elliot Rivera D.ORashmi 08/29/2019 R06.02 Shortness of breath Elliot Rivera [...] pm - Elliot Rivera D.O. at Main Zklwif4109/19/2019 - Tristian MarksK40.30 Unilateral inguinal hernia, with obstruction, without gangrene, not specified as recurrentComments:discussed case with Dr. Rivera who is more familiar with Primo's condition, who agreed pt should togo to the ED. Called ED and reported that we were sending him there was a staff member. Spoke wR60.0 Localized uruadF48.1 Restlessness and edrxktmjpJ50 Profound intellectual disabilities Functional Status Description No Information Available Mental Status Description No Information Available Referrals Refer to Reason for Referral Status Appt Date [facility] any facilities supervisor, pre operative evaluation, Created abnormal ECG/ECG changes, asymptomatic [facility] [address] [place] [address] [phone] Article 16 OT Clinic OT for [employer], see included Sent documentation [address] [place] [address] [phone] [facility] [place] [facility] Hearing evaluation. Consult and [place] [address] [phone]
--- OUTSIDE RECORDS SUMMARY | 2020-02-06 13:44 | XMS REPORT | Continuity of Care Document ---
:1935 External Reference #:[id number] Author Name Angelo Scuhster M.D. Address 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 Medicine Problems Active Problems Provider Date Heart murmur Eleazar Gore M.D., [facility], [facility] Onset: 05/12/2016 Social History Type Date Description Comments Sex Unknown ETOH Use Denies alcohol use Tobacco Use Start: Unknown Patient has never smoked Recreational Drug Use Denies Drug Use Smoking Status Reviewed: 01/02/20 Patient has never smoked Exercise Type/Frequency Exercises regularly no exercise regimen, walking, keeps active Allergies, Adverse Reactions, Alerts Active Allergies Reaction Severity Comments Date Augmentin unknown 05/12/2016 Medications Active Medications SIG Qnty Indications Ordering Date Provider Calcitriol Ointment as directed to legs Unknown Atorvastatin Calcium 1 by mouth every Unknown 80mg day Tablets Lactulose 30ml once a day Unknown 10GM/15ML Solution Finasteride 1 by mouth every Unknown 5mg Tablets day Metoprolol Tartrate 1 by mouth twice a Unknown 25mg day Tablets Miralax please take 17 Unknown 3350NF Powder grams in a drink of your choice. one/two drinks as directed. Clonazepam 1 tab by mouth Unknown 0.25mg Tablets every am Dispers Betamethasone apply thin layer to Unknown Dipropionate affected areas 0.05% Cream twice daily.prn [facility] Gentle Laxative take 3 tablets by Unknown 5mg mouth for day [address] no BM by 6pm Chlorhexidine 15 milliliters Unknown Gluconate swish and spit bid 0.12% Solution Desitin apply to affected Unknown 13% Cream area twice a day SM Antacid Advanced as directed Unknown [id number]/5ML Suspension Deep Sea Nasal [place] one spray both Unknown nostrils daily 0.65% Solution Systane Q4HR as needed for Unknown 0.4-0.3% Solution dry eyes Clonazepam take 1 tab 30 min Unknown 0.5mg Tablets prior to EKG, prn Enulose 20 GM by mouth Unknown 10GM/15ML daily. Hold for >3 Solution BM per day or diarrhea Calcipotriene apply a thin layer Unknown 0.005% twice daily as Cream needed for psoriasis Topiramate 1 by mouth twice a Unknown 25mg Tablets day Tab-A-Boo/Iron daily Unknown Tablets Xanax by mouth three Unknown 0.5mg Tablets times a day as needed Vitamin D3 Maximum 1 by mouth every Unknown Strength day 5000Unit Capsules Claritin 1 by mouth every Unknown 10mg Capsules day Levothyroxine Sodium 1 by mouth every Unknown day 50mcg Tablets Ibuprofen as needed Unknown 200mg Tablets Antacid Anti-Gas daily Unknown [id number]/5ML Suspension Chlorpromazine HCL take 1 tab by mouth Unknown 25mg Tablets Aspirin Low Dose 1 by mouth every Unknown 81mg day Chewtabs Tylenol as needed Unknown 325mg Tablets Artificial Tears instill one to two Unknown 1.4% drops as needed Solution every 4 hours Colace 2 by mouth bid as Unknown 100mg Capsules needed for constipation. Vectical 2x daily to legs Unknown 3mcg/GM Ointment Triamcinolone apply to dry skin Unknown Acetonide once or twice daily 0.1% Lotion Bacitracin Zinc prn Unknown 500Unit/GM Ointment Humira use as directed Unknown 40mg/0.4ML PSKT [place] apply to affected Unknown 0.2% Ointment area's twice a day as directed Clonazepam take 1 tablet at Unknown 0.5mg Tablets bedtime Tamsulosin HCL 1 by mouth every Unknown 0.4mg day Capsules History Medications Clonazepam take 1/2 to 1 20tabs Jorje Triana, 09/25/2019 - Unknown 0.5mg tablet as needed , NEEL Tablets anxiety and sleep Immunizations Description No Information Available Vital Signs Date Vital Result Comment 01/02/2020 11:13am Heart Rate 54 /min BP Systolic Sitting 120 mmHg lue reg cuff BP Diastolic Sitting 70 mmHg lue reg cuff 12/29/2019 9:37am Height 64 inches 5'4" Weight 174.38 lb Heart Rate 60 /min BP Systolic 140 mmHg BP Diastolic 80 mmHg Respiratory Rate 20 /min Body Temperature 97.5 F BMI (Body Mass Index) 29.9 kg/m2 Results Description No Information Available Procedures Description No Information Available Medical Devices Description No Information Available Encounters Type Date Location Provider Dx Diagnosis Office Visit 01/02/2020 [facility] Angelo Latham R94.31 Abnormal 11:15a Of Emi Schuster M.D. electrocardiogram [ECG] [EKG] Z01.810 Encounter for preprocedural cardiovascular examination Office Visit 12/29/2019 9:30a [facility] Jorje Fox K40.90 [facility] Emi Triana MD, hernia, w/o FACS obst or gangr, not spcf as recur Office Visit 09/25/2019 1:15p [facility] Jorje Fox K40.90 [facility] Emi Triana MD, hernia, w/o FACS obst or gangr, not spcf as recur Assessments Date Code Description Provider 01/02/2020 R94.31 Abnormal electrocardiogram [ECG] [EKG] Angelo Schuster M.D. 01/02/2020 Z01.810 Preoperative cardiovascular examination Angelo Schuster M.D. 12/29/2019 K40.90 Unilateral inguinal hernia, without Jorje Triana MD, FACS obstruction or gangrene, not specified as recurrent 12/22/2019 K40.90 Unilateral inguinal hernia, without Jorje Triana MD, FACS obstruction or gangrene, not specified as recurrent 09/25/2019 K40.90 Unilateral inguinal hernia, without Jorje Triana MD, FACS obstruction or gangrene, not specified as recurrent Plan of Treatment Future Appointment(s):03/04/2020 9:00 am - Jorje Triana MD, FACS at [facility]02/25/2020 11:30 am - Jorje Triana MD, FACS at [facility]01/02/2020 - Angelo Schuster M.D.R94.31 Abnormal electrocardiogram [ECG] [EKG]Follow up:As [id number] Preoperative cardiovascular examination Functional Status Description No Information Available Mental Status Description No Information Available Referrals Refer to Dr Reason for Referral Status Appt Date Eleazar Gore MD, [facility], Symptomatic RIGHT inguinal hernia in Scheduled 01/02/2020 [facility] need of repair under general anesthesia. Open procedure. Minimal blood loss. Will need to be off Xarelto for 2 days prior. Plan for discharge home. Patient is a vasquez of the formerly [facility]. He underwent echocardiogram through your offices over 3 years ago. [address] [place] [address] [phone] Nba Sahu M.D. Presurgical anesthesia evaluation. Patient is Closed vasquez of [facility]. [address] [place] [address] [phone]
--- OUTSIDE RECORDS SUMMARY | 2020-02-06 13:44 | XMS REPORT | Continuity of Care Document ---
:1935 External Reference #:[id number] Author Name Jorje Triana MD, FACS (transmitted by agent of provider Laura Pond) Address [address] [place] [address] Care Team Providers Name Role Phone Elliot Rivera DO - Family Care Team Information [employer] Medicine Problems Active Problems Provider Date Heart murmur Eleazar Gore M.D., [facility], [facility] Onset: 05/12/2016 Social History Type Date Description Comments Sex Unknown ETOH Use Denies alcohol use Tobacco Use Start: Unknown Patient has never smoked Recreational Drug Use Denies Drug Use Smoking Status Reviewed: 12/29/19 Patient has never smoked Exercise Type/Frequency Exercises [...] day SM Antacid Advanced as directed Unknown [phone]/5ML Suspension Deep Sea Nasal [place] one spray both Unknown nostrils daily 0.65% [...] Unknown 200mg Tablets Antacid Anti-Gas daily Unknown [phone]/5ML Suspension Chlorpromazine HCL take 1 tab by [...] 09/25/2019 - Unknown 0.5mg tablet as needed NEEL BARRIOS Tablets anxiety and sleep Immunizations Description No Information Available Vital Signs Date Vital Result Comment 12/29/2019 9:37am Height 64 inches 5'4" Weight 174.38 lb Heart Rate 60 /min BP Systolic 140 mmHg BP Diastolic 80 mmHg Respiratory Rate 20 /min Body Temperature 97.5 F BMI (Body Mass Index) 29.9 kg/m2 09/25/2019 1:31pm Height 64 inches 5'4" Weight 173.00 lb Heart Rate 84 /min BP Systolic Sitting 142 mmHg BP Diastolic Sitting 80 mmHg Respiratory Rate 16 /min Body Temperature 98.1 F BMI (Body Mass Index) 29.7 kg/m2 Results Description No Information Available Procedures Description No Information Available Medical Devices Description No Information Available Encounters Type Date Location Provider Dx Diagnosis Office Visit 12/29/2019 [facility], K40.90 Unil inguinal 9:30a Of Emi BARRIOS, NEEL hernia, w/o obst or gangr, not spcf as recur Office Visit 09/25/2019 [facility] Jorje Triana K40.90 Unil inguinal 1:15p Of Emi BARRIOS, NEEL hernia, w/o obst or gangr, not spcf as recur Assessments Date Code Description Provider 12/29/2019 K40.90 Unilateral inguinal hernia, without Jorje Triana MD, NEEL obstruction or gangrene, not specified as recurrent 12/22/2019 K40.90 Unilateral inguinal hernia, without Jorje Triana MD, NEEL obstruction or gangrene, not specified as recurrent 09/25/2019 K40.90 Unilateral inguinal hernia, without Jorje Triana MD, NEEL obstruction or gangrene, not specified as recurrent Plan of Treatment Future Appointment(s):01/02/2020 11:15 am - Angelo Schuster M.D. at [facility]01/22/2020 10:30 am - SHYANN Osullivan at [facility]01/14/2020 10:15 am - Flynn Alvarez PA-C at [facility]01/14/2020 10:15 am - Jorje Triana MD, FACS at [facility]12/29/2019 - Jorje Triana MD, [id number] Unilateral inguinal hernia, without obstruction or gangrene, not specified as recurrentComments:Will need cardiology clearance prior to surgical intervention.Informed consent documents sent with patient's nurse todayReferral: Eleazar Gore MD, FACReji, FASNC, Cardiovsclr Nba Harden M.D., AnesthesiologyInstructions:Present to an emergency room if patient becomes constipated or has severe abdominal pain. Functional Status Description No Information Available Mental Status Description No Information Available Referrals Refer to Dr Reason for Referral Status Appt Date Eleazar Gore MD, FACC, Symptomatic RIGHT inguinal hernia in Scheduled 01/02/2020 [facility] need of repair under general anesthesia. Open procedure. Minimal blood loss. Will need to be off Xarelto for 2 days prior. Plan for discharge home. Patient is a vasquez of the [facility]. He underwent echocardiogram through your offices over 3 years ago. [address] [place] [address] [phone] Nba Sahu M.D. Presurgical anesthesia evaluation. Patient is Sent vasquez of the [facility]. [address] [place] [address] [phone]
--- OUTSIDE RECORDS SUMMARY | 2020-02-06 13:44 | XMS REPORT | Continuity of Care Document ---
:1935 External Reference #:[id number] Author Name Angelo Schuster M.D. (transmitted by agent of provider Kaci Galan) Address 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 electrocardiogram [ECG] [EKG] Z01.810 Encounter for preprocedural cardiovascular examination K40.90 Unil inguinal hernia, w/o obst or gangr, not spcf as recur Office Visit 12/29/2019 9:30a Surgical Jorje Fox [...] Z01.810 Preoperative cardiovascular examination Angelo Schuster M.D. 01/02/2020 K40.90 Unilateral inguinal hernia, without Angelo Schuster M.D. obstruction or gangrene, not specified as recurrent 12/29/2019 K40.90 Unilateral inguinal hernia, without Jorje Triana MD, NEEL obstruction or gangrene, not specified as recurrent 12/22/2019 K40.90 Unilateral inguinal hernia, without Jorje Triana MD, FACS obstruction or gangrene, not specified as recurrent 09/25/2019 K40.90 Unilateral inguinal hernia, without Jorje Triana MD, NEEL obstruction or gangrene, not specified as recurrent Plan of Treatment Future Appointment(s):02/12/2020 2:30 pm - SHYANN Osullivan at [facility]03/04/2020 9:00 am - Jorje Triana MD, NEEL at [facility]02/25/2020 11:30 am - Jorje Triana MD, FACS at [facility]01/02/2020 - Angelo Schuster M.D.R94.31 Abnormal electrocardiogram [ECG] [EKG]Follow up:As rowuofT82.810 Preoperative cardiovascular [id number] Unilateral inguinal hernia, without obstruction or gangrene, not specified as recurrent Functional Status Description No Information Available Mental Status Description No Information Available Referrals Refer to Dr Reason for Referral Status Appt Eleazar Gore MD, [facility], Symptomatic RIGHT inguinal hernia in Scheduled 01/02/2020 [facility] need of repair under general anesthesia. Open procedure. Minimal blood loss. Will need to be off Xarelto for 2 days prior. Plan for discharge home. Patient is a vasquez of the [facility]. He underwent echocardiogram through your offices over 3 years ago. [address] [place], [place] [id number] [phone] Nba Sahu M.D. Presurgical anesthesia evaluation. Patient is Closed vasquez of the [facility]. [address] [place] [address] [phone]
[2020-02-06] MEDS ORDERED: Lorazepam PYXIS KEY PRN (14:29)
[2020-02-06] MEDS ORDERED: LORazepam INJ* 2 MG/ML 1 ML VIAL IM ONE (14:29)
[2020-02-06 16:34] VITALS: BP 145/81
--- NOTE | 2020-02-06 16:57 | PN ---
Progress Note - Progress Note Date of Service: 02/06/20 Note: Surgery Note: (full consult dictated) Patient is nonverbal and intellectually delayed. He has a large right inguinal- scrotal hernia for which he is planned for repair with Dr. Triana, though this has been deferred because of the current Covid pandemic. He was brought initially to the office by his caregivers because he was acting more "agitated" . He was not seen there, but was rather referred to the ED. He has not had any GI sx (nausea, vomiting, diarrhea), but has seemed to have some "straining" to urinate. Initial ED evaluation was unremarkable, other than a bladder scan showing ~ 500 ml. He subsequently voided (amount not recorded, but he made a "puddle" per the RN) and stooled (incontinent). I was able to examine him in the supine position with assistance from his aides. The large right-sided hernia did not appear to be tender nor did he appear to have any abdominal tenderness. With steady pressure over the hernia, it was ultimately reducible through a fairly large defect. He tolerated this well. His caregivers were instructed by the ED to contact the office for follow up with Dr. Triana next week. Also discussed with my attending, Dr. Moon.
--- NOTE | 2020-02-06 18:19 | CONS ---
CC: Dr. Triana; Dr. Elliot Rivera* SURGICAL CONSULTATION NOTE: DATE OF CONSULT: 02/06/20 ATTENDING SURGEON: Dr. Iliana Moon. CHIEF COMPLAINT: Right inguinal scrotal hernia. HISTORY OF PRESENT ILLNESS: This is an 85-year-old nonverbal, developmentally and intellectually delayed patient seen in our office previously by Dr. Triana for a large right-sided inguinal scrotal hernia. This had apparently been reducible in the past, though has been more difficult to reduce recently. In fact, per Dr. Triana's last office note from 01/02/20, the hernia was unable to be reduced at that time. The patient's caregivers were concerned that he was more uncomfortable and agitated and had contacted the office where they brought him. However, he was not seen there but rather referred here to the ED. Initial evaluation by the ED found him to be agitated and uncooperative with exam. He was therefore given a dose of Ativan initially 2 mg p.o. followed by 2 mg IM. He was found to have approximately 500 cc on bladder scan, but he subsequently was able to void, and per the nurse, he created a large puddle on the floor. He was also incontinent of stool (which is his usual). PHYSICAL EXAMINATION: I was nonetheless asked to see him and my exam is limited to the hernia. Vital signs: temperature 97.6, blood pressure 145/81, pulse 65, respirations 16, room air saturation 95%. General: Nonverbal, somewhat agitated, but also somewhat cooperative elderly gentleman, in no acute distress. He was actually in the wheelchair getting ready to leave and [facility] Abdomen: In the supine position, abdomen was soft and nontender. There was a large inguinal scrotal hernia which did not appear to be tender. With gentle and steady pressure and assistance from the aides, I was able to reduce the hernia satisfactorily revealing a fairly large hernia defect. The patient tolerated this well, though I am quite certain the hernia will recur as soon as he is upright and active. IMPRESSION: Large right inguinal scrotal hernia, reducible though with difficulty. PLAN: His caregivers were instructed to contact our office for followup next week with Dr. Triana. He was tentatively scheduled for surgery in April 2020 because of the current COVID crisis, but this may need to be moved up. He is discharged back to his residence by the ED providers. SHYANN HAWKINS [id number]/[facility] #: [id number] [id number]
== END 2020-02-06 16:32 | disposition home or self-care (01) ==
LOC: ED 12:43
DX: K40.90 Unilateral inguinal hernia, without obstruction or gangrene, not specified as recurrent (principal); F41.9 Anxiety disorder, unspecified; E03.9 Hypothyroidism, unspecified; Z79.899 Other long term (current) drug therapy; Z79.890 Hormone replacement therapy
CPT/HCPCS: 96372; 99282; A9270-GY; J2060

== ENCOUNTER 2022-03-02 08:55 | Inpatient (IN) ==
[2022-03-02] MEDS ORDERED: diazePAM INJ CARPUJECT 5 MG/ML SYRINGE ONE (09:21)
[2022-03-02] MEDS ORDERED: Levofloxacin 500 MG IVPREMIX 500 MG/100 ML BAG IVPB ONE (09:26)
[2022-03-02 09:38] LABS: ABS Lymphocytes 2.6 10^3/ul (1.0-4.8); ABS Monocytes 1.2 10^3/ul (0-0.8); ABS Neutrophils 11.2 10^3/ul (1.5-7.7); Hematocrit 51 % (42-52); Lymphocyte % 17.3 %; Mean Corpuscular HGB Conc 32 g/dL (31-36); Mean Corpuscular Hemoglobin 30 pg (27-31); Mean Corpuscular Volume 93 fL (80-94); Mean Platelet Volume 8.6 fL (7.4-10.4); Nucleated Red Blood Cells % 0.2; Platelet Count 434 10^3/uL (150-450); Red Blood Count 5.42 10^6 /uL (4.18-5.48); Red Cell Distribution Width 14 % (10-15)
[2022-03-02 09:46] LABS: Activated Partial Thrombo Time 51.2 seconds (26.0-38.0); INR 1.32 (0.86-1.15)
[2022-03-02 10:11] LABS: Venous Bicarbonate HCO3 11.8 mmol/L (24-28)
[2022-03-02] MEDS ORDERED: Lactated Ringers 1000 ml BAG 2,000 ML IV ONE (10:21)
[2022-03-02] MEDS ORDERED: Norepinephrine 16MCG/ML BAG NS 4,000 MCG/250 ML BAG IV ONE ×2 (10:24→14:56)
[2022-03-02] MEDS ORDERED: Vancomycin 1,500 MG in NS 0.9% 250 ml 250 ML IVPB ONE (10:30)
[2022-03-02] MEDS ORDERED: Cefepime 1 GM in Dextrose 1 GM/50 ML BAG IV ONE (10:36)
[2022-03-02] MEDS ORDERED: Azithromycin 500 mg/250 ml NS 500 MG/250 ML BAG IVPB ONE (10:37)
[2022-03-02 10:38] LABS: Albumin 3.9 g/dL (3.2-5.2); Albumin/Globulin Ratio 1.1 (1-3); Calcium 11.2 mg/dL (8.6-10.3); Globulin 3.5 g/dL (2-4); Total Bilirubin 0.7 mg/dL (0.2-1.0); Total Protein 7.4 g/dL (6.4-8.9); eGFR CKD-EPI 12.4 (>60)
[2022-03-02] MEDS ORDERED: diazePAM INJ CARPUJECT 5 MG/ML SYRINGE IV ONE (10:57)
[2022-03-02] MEDS ORDERED: Norepinephrine 16MCG/ML BAG NS 4,000 MCG/250 ML BAG IV SCH (11:00)
[2022-03-02] MEDS ORDERED: Piperacillin/Tazobac ADVAN 3.375 GM in NS 0.9% 100 ml BAG 100 ML IV ONE (11:13)
[2022-03-02] MEDS ORDERED: Succinylcholine 200 mg VIAL 20 mg/ml 10 ml VIAL (200 mg) ONE (11:14)
[2022-03-02] MEDS ORDERED: Rocuronium 50 mg VIAL 10 mg/ml 5 ml VIAL (50 mg) ONE ×3 (11:14→17:02)
[2022-03-02] MEDS ORDERED: Propofol 10 mg/ml 100 ML BTL 100 ML ONE (11:15)
[2022-03-02] MEDS ORDERED: NS 0.9% 1000 ml BAG 1,000 ML IV SCH (11:15)
[2022-03-02 11:16] LABS: High Sensitivity Troponin 1 Hr 138 pg/mL (<20)
[2022-03-02] MEDS: Propofol 10 mg/ml 100 ML BTL 100 ML IV SCH (11:35)
[2022-03-02] MEDS ORDERED: fentaNYL 100 mcg/2 ml 50 MCG/ML VIAL ONE ×4 (11:43→17:05)
[2022-03-02] MEDS ORDERED: Zosyn per Pharmacy NOTE FOLLOW UP SCH (12:00)
[2022-03-02] MEDS ORDERED: D5W 1000 ml BAG 850 ML with Sodium Bicarb 8.4% Vial 50 ML 150 MEQ IV SCH (12:00)
[2022-03-02] MEDS ORDERED: Sodium Bicarbonate 8.4% IV 150 MEQ in D5W 1000 ML BAG 850 ML IV ONE (12:00)
[2022-03-02] MEDS ORDERED: fentaNYL 100 mcg/2 ml 50 MCG/ML VIAL IV SLOW PU ONE (12:12)
[2022-03-02 12:30] LABS: Magnesium 2.7 mg/dL (1.9-2.7)
[2022-03-02] MEDS ORDERED: Hydrocortisone INJ 100 MG/2ML 2 ML VIAL IV SCH (13:00)
[2022-03-02 13:30] LABS: Venous Bicarbonate HCO3 19.8 mmol/L (24-28)
[2022-03-02] MEDS ORDERED: Propofol 10 MG/ML 20 ML BTL ONE (13:38)
[2022-03-02 14:31] LABS: Albumin 2.8 g/dL (3.2-5.2); Albumin/Globulin Ratio 1.1 (1-3); Calcium 9.1 mg/dL (8.6-10.3); Direct Bilirubin 0.2 mg/dL (0.03-0.18); Globulin 2.5 g/dL (2-4); Indirect Bilirubin 0.4 mg/dL (0.3-1.0); Potassium 4.6 mmol/L (3.5-5.0); Total Bilirubin 0.6 mg/dL (0.2-1.0); Total Protein 5.3 g/dL (6.4-8.9)
[2022-03-02 14:38] LABS: Hematocrit 41 % (42-52); Hemoglobin 13.4 g/dL (14.0-18.0); Mean Corpuscular HGB Conc 33 g/dL (31-36); Mean Corpuscular Hemoglobin 30 pg (27-31); Mean Corpuscular Volume 91 fL (80-94); Mean Platelet Volume 8.5 fL (7.4-10.4); Platelet Count 311 10^3/uL (150-450); Red Blood Count 4.45 10^6 /uL (4.18-5.48); Red Cell Distribution Width 14 % (10-15); White Blood Count 7.7 10^3/uL (3.5-10.8)
[2022-03-02] MEDS ORDERED: metroNIDAZOLE IV 500 MG/100ML 100 ML IVPB ONE (14:40)
[2022-03-02] MEDS ORDERED: metroNIDAZOLE IV 500 MG/100ML 500 MG/100 ML BAG ONE (14:48)
[2022-03-02] MEDS ORDERED: fentaNYL 100 mcg/2 ml 50 MCG/ML VIAL IV PRN (14:56)
[2022-03-02] MEDS ORDERED: Ondansetron 4 mg VIAL 2 MG/ML 2 ml VIAL IV PRN (14:56)
[2022-03-02 15:59] LABS: PCO2 Arterial 44 mmHg (35-45); PO2 Arterial 189 mmHg (80-100)
[2022-03-02 16:27] LABS: Potassium 4.1 mmol/L (3.5-5.0)
[2022-03-02] MEDS ORDERED: Sodium Bicarbonate 8.4% VIAL 1 MEQ/ML 50 ml VIAL (50 meq) ONE (17:04)
[2022-03-02] MEDS ORDERED: EPHEDrine (Pressors) 50 MG/ML VIAL ONE (17:05)
[2022-03-02 17:58] LABS: ABS Lymphocytes 1.3 10^3/ul (1.0-4.8); ABS Neutrophils 5.3 10^3/ul (1.5-7.7); Lymphocyte % 16.9 %
[2022-03-02] MEDS: NORMOSOL-R pH 7.4 1000 mL BAG 1,000 ML IV SCH (18:16)
[2022-03-02] MEDS: Chlorhexidine MOUTHWASH 0.12% 15 ML UDC TOPICAL SCH ×3 (18:18→23:40)
[2022-03-02] MEDS: Hydrocortisone INJ 100 MG/2ML 2 ML VIAL IV SCH (18:23)
[2022-03-02 20:29] LABS: Hematocrit 35 % (42-52); Hemoglobin 11.9 g/dL (14.0-18.0); Mean Corpuscular HGB Conc 34 g/dL (31-36); Mean Corpuscular Hemoglobin 30 pg (27-31); Mean Corpuscular Volume 89 fL (80-94); Mean Platelet Volume 8.2 fL (7.4-10.4); Platelet Count 230 10^3/uL (150-450); Red Blood Count 3.97 10^6 /uL (4.18-5.48); Red Cell Distribution Width 14 % (10-15); White Blood Count 5.2 10^3/uL (3.5-10.8)
[2022-03-02 20:30] LABS: ABS Lymphocytes 0.7 10^3/ul (1.0-4.8); ABS Monocytes 0.6 10^3/ul (0-0.8); ABS Neutrophils 3.8 10^3/ul (1.5-7.7); Lymphocyte % 13.5 %; Nucleated Red Blood Cells % 0.1
[2022-03-02 20:57] LABS: Albumin 2.3 g/dL (3.2-5.2); Calcium 7.6 mg/dL (8.6-10.3); Globulin 2.2 g/dL (2-4); Potassium 4.1 mmol/L (3.5-5.0); Total Bilirubin 0.9 mg/dL (0.2-1.0); Total Protein 4.5 g/dL (6.4-8.9); eGFR CKD-EPI 16.3 (>60)
[2022-03-02] MEDS: ZOSYN 3.375 GM Q12H per EXTENDED INFUSION IV SCH (22:24)
[2022-03-02] MEDS ORDERED: Norepinephrine 16MCG/ML BAGD5W 4,000 MCG/250 ML BAG IV ONE (23:54)
[2022-03-02] MEDS: Norepinephrine 16MCG/ML BAG NS 4,000 MCG/250 ML BAG IV SCH (23:57)
[2022-03-03] MEDS: NORMOSOL-R pH 7.4 1000 mL BAG 1,000 ML IV SCH ×2 (02:32→12:55)
[2022-03-03] MEDS: Hydrocortisone INJ 100 MG/2ML 2 ML VIAL IV SCH ×3 (02:34→18:24)
[2022-03-03] MEDS: Propofol 10 mg/ml 100 ML BTL 100 ML IV SCH ×3 (03:06→17:35)
[2022-03-03 04:42] LABS: Hematocrit 34 % (42-52); Hemoglobin 11.7 g/dL (14.0-18.0); Mean Corpuscular HGB Conc 34 g/dL (31-36); Mean Corpuscular Hemoglobin 31 pg (27-31); Mean Corpuscular Volume 90 fL (80-94); Mean Platelet Volume 8.5 fL (7.4-10.4); Platelet Count 248 10^3/uL (150-450); Red Blood Count 3.79 10^6 /uL (4.18-5.48); Red Cell Distribution Width 14 % (10-15); White Blood Count 10.8 10^3/uL (3.5-10.8)
[2022-03-03] MEDS: Chlorhexidine MOUTHWASH 0.12% 15 ML UDC TOPICAL SCH ×6 (04:43→22:56)
[2022-03-03] MEDS ORDERED: NORMOSOL-R pH 7.4 1000 mL BAG 500 ML IV SCH ×2 (05:00→06:00)
[2022-03-03 05:08] LABS: Calcium 7.4 mg/dL (8.6-10.3); Magnesium 1.9 mg/dL (1.9-2.7); Potassium 4.1 mmol/L (3.5-5.0); eGFR CKD-EPI 15.8 (>60)
[2022-03-03 06:19] LABS: Phosphorus 4.7 mg/dL (2.5-5.0)
[2022-03-03] MEDS ORDERED: Norepinephrine 16MCG/ML BAGD5W 4,000 MCG/250 ML BAG IV ONE (06:48)
[2022-03-03] MEDS: Norepinephrine 16MCG/ML BAG NS 4,000 MCG/250 ML BAG IV SCH (06:49)
[2022-03-03] MEDS: Pantoprazole VIAL 40 MG VIAL IV SCH (08:41)
[2022-03-03 09:14] LABS: RBC Morphology Normal (Normal)
[2022-03-03 09:15] LABS: ABS Neutrophils 9.4 10^3/ul (1.5-7.7)
[2022-03-03 10:09] LABS: PCO2 Arterial 33 mmHg (35-45); PO2 Arterial 123 mmHg (80-100)
[2022-03-03 10:26] LABS: Urine Appearance Cloudy; Urine Bilirubin Negative (Negative); Urine Blood 2+ (Negative); Urine Color Yellow; Urine Glucose Negative (Negative); Urine Ketones Negative (Negative); Urine Nitrite Negative (Negative); Urine Protein 1+(30 mg/dL) (Negative); Urine Urobilinogen Negative (Negative)
[2022-03-03 10:29] LABS: Urine Bacteria Absent (Absent); Urine Red Blood Cell 1+(3-5/hpf) (Absent); Urine White Blood Cell Trace(0-5/hpf) (Absent)
[2022-03-03] MEDS: ZOSYN 3.375 GM Q12H per EXTENDED INFUSION IV SCH ×2 (10:54→21:56)
[2022-03-03 12:57] LABS: Hematocrit 31 % (42-52); Hemoglobin 10.6 g/dL (14.0-18.0); Mean Corpuscular HGB Conc 34 g/dL (31-36); Mean Corpuscular Hemoglobin 31 pg (27-31); Mean Corpuscular Volume 91 fL (80-94); Mean Platelet Volume 8.8 fL (7.4-10.4); Platelet Count 192 10^3/uL (150-450); Red Blood Count 3.41 10^6 /uL (4.18-5.48); Red Cell Distribution Width 14 % (10-15); White Blood Count 10.6 10^3/uL (3.5-10.8)
[2022-03-03 13:11] LABS: Activated Partial Thrombo Time 47.7 seconds (26.0-38.0); INR 1.45 (0.86-1.15)
[2022-03-03 13:41] LABS: eGFR CKD-EPI 19.1 (>60)
[2022-03-03 14:01] LABS: ABS Lymphocytes 0.5 10^3/ul (1.0-4.8); ABS Monocytes 0.8 10^3/ul (0-0.8); ABS Neutrophils 9.3 10^3/ul (1.5-7.7); Lymphocyte % 4.6 %
[2022-03-03] MEDS ORDERED: fentaNYL 100 mcg/2 ml 50 MCG/ML VIAL ONE (15:21)
[2022-03-03] MEDS ORDERED: fentaNYL 100 mcg/2 ml 50 MCG/ML VIAL IV SLOW PU PRN (15:33)
[2022-03-03] MEDS ORDERED: fentaNYL 100 mcg/2 ml 50 MCG/ML VIAL IV SLOW PU ONE (16:23)
[2022-03-03] MEDS: fentaNYL 100 mcg/2 ml 50 MCG/ML VIAL IV SLOW PU PRN (17:03)
[2022-03-03] MEDS: Heparin 5000 UNITS/ML 1 mL VIAL SUBCUT SCH ×2 (17:17→21:56)
[2022-03-03 20:43] LABS: Magnesium 2.2 mg/dL (1.9-2.7); Phosphorus 3.5 mg/dL (2.5-5.0); Potassium 3.4 mmol/L (3.5-5.0); eGFR CKD-EPI 22.9 (>60)
[2022-03-03] MEDS ORDERED: Potassium Chloride LIQUID 20 MEQ/15 ML LIQUID PO ONE (22:05)
[2022-03-04] MEDS: Hydrocortisone INJ 100 MG/2ML 2 ML VIAL IV SCH ×2 (02:11→10:26)
[2022-03-04] MEDS: NORMOSOL-R pH 7.4 1000 mL BAG 1,000 ML IV SCH ×3 (02:11→22:05)
[2022-03-04] MEDS ORDERED: NORMOSOL-R pH 7.4 1000 mL BAG 500 ML IV SCH (03:00)
[2022-03-04] MEDS: Chlorhexidine MOUTHWASH 0.12% 15 ML UDC TOPICAL SCH ×6 (03:38→23:45)
[2022-03-04] MEDS: fentaNYL 100 mcg/2 ml 50 MCG/ML VIAL IV SLOW PU PRN ×2 (03:48→17:46)
[2022-03-04 04:19] LABS: ABS Lymphocytes 0.4 10^3/ul (1.0-4.8); ABS Monocytes 0.7 10^3/ul (0-0.8); ABS Neutrophils 8.8 10^3/ul (1.5-7.7); Hematocrit 28 % (42-52); Hemoglobin 9.4 g/dL (14.0-18.0); Lymphocyte % 4.3 %; Mean Corpuscular HGB Conc 34 g/dL (31-36); Mean Corpuscular Hemoglobin 30 pg (27-31); Mean Corpuscular Volume 89 fL (80-94); Mean Platelet Volume 8.9 fL (7.4-10.4); Platelet Count 173 10^3/uL (150-450); Red Blood Count 3.08 10^6 /uL (4.18-5.48); Red Cell Distribution Width 15 % (10-15); White Blood Count 9.9 10^3/uL (3.5-10.8)
[2022-03-04 04:43] LABS: Magnesium 2.3 mg/dL (1.9-2.7); Potassium 3.5 mmol/L (3.5-5.0); eGFR CKD-EPI 28.6 (>60)
[2022-03-04] MEDS ORDERED: KCL 20 MEQ/100 ML IVPREMIX 20 MEQ/100 ML BAG IV ONE (05:38)
[2022-03-04] MEDS: Heparin 5000 UNITS/ML 1 mL VIAL SUBCUT SCH ×3 (05:43→21:59)
[2022-03-04] MEDS: Pantoprazole VIAL 40 MG VIAL IV SCH (08:41)
[2022-03-04 10:09] LABS: PCO2 Arterial 36 mmHg (35-45); PO2 Arterial 65 mmHg (80-100)
[2022-03-04] MEDS: ZOSYN 3.375 GM Q12H per EXTENDED INFUSION IV SCH ×2 (10:09→21:59)
[2022-03-04 15:58] LABS: PCO2 Arterial 34 mmHg (35-45); PO2 Arterial 84 mmHg (80-100)
[2022-03-04] MEDS: Linezolid 600 MG IVPREMIX(*) 600 MG/300 ML BAG IVPB SCH (16:50)
[2022-03-04] MEDS ORDERED: Metoprolol Tartrate 5 mg VIAL 5 ml VIAL (1 mg/ml) IV ONE (18:44)
[2022-03-04] MEDS ORDERED: Metoprolol Tartrate 5 mg VIAL 5 ml VIAL (1 mg/ml) ONE (18:56)
[2022-03-05] MEDS: fentaNYL 100 mcg/2 ml 50 MCG/ML VIAL IV SLOW PU PRN (01:22)
[2022-03-05] MEDS: Chlorhexidine MOUTHWASH 0.12% 15 ML UDC TOPICAL SCH ×2 (04:38→09:34)
[2022-03-05 04:58] LABS: Hematocrit 29 % (42-52); Hemoglobin 9.4 g/dL (14.0-18.0); Mean Corpuscular HGB Conc 33 g/dL (31-36); Mean Corpuscular Hemoglobin 29 pg (27-31); Mean Corpuscular Volume 89 fL (80-94); Mean Platelet Volume 8.9 fL (7.4-10.4); Platelet Count 220 10^3/uL (150-450); Red Cell Distribution Width 14 % (10-15); White Blood Count 15.8 10^3/uL (3.5-10.8)
[2022-03-05] MEDS: Linezolid 600 MG IVPREMIX(*) 600 MG/300 ML BAG IVPB SCH ×2 (05:15→17:17)
[2022-03-05 05:22] LABS: ABS Lymphocytes 1.3 10^3/ul (1.0-4.8); ABS Monocytes 1.5 10^3/ul (0-0.8); ABS Neutrophils 12.9 10^3/ul (1.5-7.7); Lymphocyte % 8.5 %; RBC Morphology Normal (Normal)
[2022-03-05 05:44] LABS: Albumin 2.4 g/dL (3.2-5.2); Calcium 7.4 mg/dL (8.6-10.3); Globulin 2.4 g/dL (2-4); Magnesium 2.7 mg/dL (1.9-2.7); Potassium 3.4 mmol/L (3.5-5.0); Total Bilirubin 0.6 mg/dL (0.2-1.0); Total Protein 4.8 g/dL (6.4-8.9); eGFR CKD-EPI 43.9 (>60)
[2022-03-05 05:59] LABS: TSH Ultra Thyroid Stim Horm 0.6 mcIU/mL (0.34-5.60)
[2022-03-05] MEDS: Heparin 5000 UNITS/ML 1 mL VIAL SUBCUT SCH ×3 (06:21→22:03)
[2022-03-05] MEDS ORDERED: Potassium Chlor 20 meq TAB.ER PO ONE (08:14)
[2022-03-05] MEDS ORDERED: KCL 20 MEQ/100 ML IVPREMIX 20 MEQ/100 ML BAG IV SCH (09:00)
[2022-03-05] MEDS: Pantoprazole VIAL 40 MG VIAL IV SCH (09:01)
[2022-03-05] MEDS: ZOSYN 3.375 GM Q12H per EXTENDED INFUSION IV SCH ×2 (09:02→22:04)
[2022-03-05] MEDS ORDERED: KCL 20 MEQ/100 ML IVPREMIX 20 MEQ/100 ML BAG IV ONE (09:16)
[2022-03-06] MEDS ORDERED: fentaNYL 100 mcg/2 ml 50 MCG/ML VIAL ONE ×2 (01:06→09:43)
[2022-03-06] MEDS: fentaNYL 100 mcg/2 ml 50 MCG/ML VIAL IV SLOW PU PRN ×2 (01:08→09:45)
[2022-03-06] MEDS: Linezolid 600 MG IVPREMIX(*) 600 MG/300 ML BAG IVPB SCH ×2 (05:56→17:25)
[2022-03-06] MEDS ORDERED: Heparin - STEMI 5,000 UNITS/ML 1 ml VIAL IV ONE (06:00)
[2022-03-06] MEDS: Heparin 5000 UNITS/ML 1 mL VIAL SUBCUT SCH ×2 (06:04→14:07)
[2022-03-06] MEDS ORDERED: hydrALAZINE 20 mg/ml 1 ML Vial IV IV SLOW PU PRN ×2 (07:19→17:24)
[2022-03-06] MEDS: Pantoprazole VIAL 40 MG VIAL IV SCH (09:13)
[2022-03-06] MEDS ORDERED: fentaNYL 100 mcg/2 ml 50 MCG/ML VIAL IV SLOW PU PRN (10:01)
[2022-03-06] MEDS: ZOSYN 3.375 GM Q8H per EXTENDED INFUSION IV SCH ×2 (10:18→21:28)
[2022-03-06 10:46] LABS: Hematocrit 31 % (42-52); Hemoglobin 10.2 g/dL (14.0-18.0); Mean Corpuscular HGB Conc 34 g/dL (31-36); Mean Corpuscular Hemoglobin 30 pg (27-31); Mean Corpuscular Volume 90 fL (80-94); Mean Platelet Volume 8.7 fL (7.4-10.4); Platelet Count 232 10^3/uL (150-450); Red Cell Distribution Width 14 % (10-15); White Blood Count 13.2 10^3/uL (3.5-10.8)
[2022-03-06 11:25] LABS: Calcium 7.8 mg/dL (8.6-10.3); Magnesium 2.5 mg/dL (1.9-2.7); Potassium 3.8 mmol/L (3.5-5.0); eGFR CKD-EPI 58.7 (>60)
[2022-03-06] MEDS: Acetaminophen IV 1 GM/100ML 100 ML IV SCH ×2 (12:11→20:27)
[2022-03-06 12:23] LABS: ABS Lymphocytes 1.2 10^3/ul (1.0-4.8); ABS Monocytes 1.6 10^3/ul (0-0.8); ABS Neutrophils 10.4 10^3/ul (1.5-7.7); Lymphocyte % 9.1 %
[2022-03-07] MEDS: Heparin 5000 UNITS/ML 1 mL VIAL SUBCUT SCH ×4 (00:14→22:38)
[2022-03-07] MEDS: ZOSYN 3.375 GM Q8H per EXTENDED INFUSION IV SCH (02:48)
[2022-03-07] MEDS: Acetaminophen IV 1 GM/100ML 100 ML IV SCH ×3 (04:16→20:17)
[2022-03-07] MEDS: Linezolid 600 MG IVPREMIX(*) 600 MG/300 ML BAG IVPB SCH ×2 (05:01→17:39)
[2022-03-07] MEDS ORDERED: ZOSYN 3.375 GM Q8H per EXTENDED INFUSION IV SCH (06:00)
[2022-03-07 06:16] LABS: ABS Lymphocytes 1.3 10^3/ul (1.0-4.8); ABS Monocytes 1.2 10^3/ul (0-0.8); ABS Neutrophils 10.8 10^3/ul (1.5-7.7); Hematocrit 36 % (42-52); Hemoglobin 11.7 g/dL (14.0-18.0); Lymphocyte % 9.8 %; Mean Corpuscular HGB Conc 33 g/dL (31-36); Mean Corpuscular Hemoglobin 30 pg (27-31); Mean Corpuscular Volume 90 fL (80-94); Mean Platelet Volume 9.3 fL (7.4-10.4); Nucleated Red Blood Cells % 0.1; Platelet Count 247 10^3/uL (150-450); Red Blood Count 3.97 10^6 /uL (4.18-5.48); Red Cell Distribution Width 14 % (10-15); White Blood Count 13.4 10^3/uL (3.5-10.8)
[2022-03-07 06:46] LABS: Calcium 8.2 mg/dL (8.6-10.3); Magnesium 2.4 mg/dL (1.9-2.7); Phosphorus 2.1 mg/dL (2.5-5.0); Potassium 4.1 mmol/L (3.5-5.0); eGFR CKD-EPI 59.9 (>60)
[2022-03-07] MEDS: ZOSYN 3.375 GM Q6H per 30 MIN INFUSION IV SCH ×3 (08:03→21:27)
[2022-03-07] MEDS: Pantoprazole VIAL 40 MG VIAL IV SCH (09:06)
[2022-03-07] MEDS: HYDROmorphone 0.5 MG/0.5 ML SYRINGE IV SLOW PU PRN ×2 (09:15→18:02)
[2022-03-07] MEDS ORDERED: Lorazepam PYXIS KEY PRN (13:31)
[2022-03-07] MEDS: LORazepam 2 mg VIAL 1 ml IV PUSH PRN ×2 (13:44→20:16)
[2022-03-07] MEDS ORDERED: hydrALAZINE 20 mg/ml 1 ML Vial IV IV SLOW PU PRN (14:30)
[2022-03-08] MEDS: ZOSYN 3.375 GM Q6H per 30 MIN INFUSION IV SCH ×4 (02:16→19:54)
[2022-03-08] MEDS: LORazepam 2 mg VIAL 1 ml IV PUSH PRN ×3 (02:27→16:38)
[2022-03-08] MEDS: Acetaminophen IV 1 GM/100ML 100 ML IV SCH ×3 (05:20→20:48)
[2022-03-08 06:11] LABS: Anion Gap 11 mmol/L (2-11); CO2 Carbon Dioxide 19 mmol/L (22-32); Calcium 8.2 mg/dL (8.6-10.3); Chloride 110 mmol/L (101-111); Sodium 140 mmol/L (135-145)
[2022-03-08 06:16] LABS: Blood Urea Nitrogen 26 mg/dL (6-24); Glucose 86 mg/dL (70-100); eGFR CKD-EPI 61.1 (>60)
[2022-03-08] MEDS: Heparin 5000 UNITS/ML 1 mL VIAL SUBCUT SCH ×3 (06:46→22:29)
[2022-03-08 06:56] LABS: Hematocrit 32 % (42-52); Hemoglobin 10.7 g/dL (14.0-18.0); Mean Corpuscular HGB Conc 34 g/dL (31-36); Mean Corpuscular Hemoglobin 30 pg (27-31); Mean Corpuscular Volume 88 fL (80-94); Red Blood Count 3.57 10^6 /uL (4.18-5.48); Red Cell Distribution Width 14 % (10-15); White Blood Count 13.2 10^3/uL (3.5-10.8)
[2022-03-08 07:03] LABS: ABS Basophils 0.1 10^3/ul (0-0.2); ABS Lymphocytes 1.2 10^3/ul (1.0-4.8); ABS Monocytes 1.1 10^3/ul (0-0.8); ABS Neutrophils 10.8 10^3/ul (1.5-7.7); Lymphocyte % 9.3 %
[2022-03-08 07:25] LABS: Mean Platelet Volume 9.2 fL (7.4-10.4); Platelet Count 247 10^3/uL (150-450)
[2022-03-08] MEDS: Linezolid 600 MG IVPREMIX(*) 600 MG/300 ML BAG IVPB SCH ×2 (09:15→16:38)
[2022-03-08 09:25] LABS: Potassium Redraw 3.7 mmol/L (3.5-5.0)
[2022-03-08] MEDS: Pantoprazole VIAL 40 MG VIAL IV SCH (09:48)
[2022-03-08] MEDS: HYDROmorphone 0.5 MG/0.5 ML SYRINGE IV SLOW PU PRN ×2 (14:14→17:12)
[2022-03-08 14:49] LABS: Ferritin 109.9 ng/mL (24-336)
[2022-03-09] MEDS: ZOSYN 3.375 GM Q6H per 30 MIN INFUSION IV SCH ×4 (02:01→21:03)
[2022-03-09] MEDS: Acetaminophen IV 1 GM/100ML 100 ML IV SCH ×3 (03:41→19:44)
[2022-03-09] MEDS: Linezolid 600 MG IVPREMIX(*) 600 MG/300 ML BAG IVPB SCH ×2 (04:39→17:03)
[2022-03-09 05:47] LABS: ABS Lymphocytes 1.4 10^3/ul (1.0-4.8); ABS Monocytes 0.8 10^3/ul (0-0.8); ABS Neutrophils 8.9 10^3/ul (1.5-7.7); Hematocrit 30 % (42-52); Hemoglobin 9.8 g/dL (14.0-18.0); Lymphocyte % 12.4 %; Mean Corpuscular HGB Conc 33 g/dL (31-36); Mean Corpuscular Hemoglobin 29 pg (27-31); Mean Corpuscular Volume 88 fL (80-94); Mean Platelet Volume 8.6 fL (7.4-10.4); Nucleated Red Blood Cells % 0.1; Platelet Count 264 10^3/uL (150-450); Red Blood Count 3.35 10^6 /uL (4.18-5.48); Red Cell Distribution Width 14 % (10-15); White Blood Count 11.1 10^3/uL (3.5-10.8)
[2022-03-09] MEDS: Heparin 5000 UNITS/ML 1 mL VIAL SUBCUT SCH ×3 (05:59→22:55)
[2022-03-09 06:00] LABS: Calcium 7.7 mg/dL (8.6-10.3); Magnesium 1.8 mg/dL (1.9-2.7); Potassium 3.5 mmol/L (3.5-5.0); eGFR CKD-EPI 58.1 (>60)
[2022-03-09] MEDS ORDERED: Magnesium Sulfate IV 3 GM in NS 0.9% 100 ml BAG 100 ML IVPB ONE (07:19)
[2022-03-09] MEDS ORDERED: Magnesium Sulfate 1 GM IV 1 GM/100 ML BAG IV ONE (08:00)
[2022-03-09] MEDS ORDERED: Magnesium Sulfate 2 GM IV (Premix) IVPB ONE (08:00)
[2022-03-09] MEDS: HYDROmorphone 0.5 MG/0.5 ML SYRINGE IV SLOW PU PRN (09:33)
[2022-03-09] MEDS: Pantoprazole VIAL 40 MG VIAL IV SCH (09:52)
[2022-03-09] MEDS: LORazepam 2 mg VIAL 1 ml IV PUSH PRN ×2 (11:26→22:55)
[2022-03-10] MEDS: ZOSYN 3.375 GM Q6H per 30 MIN INFUSION IV SCH ×4 (02:16→12:56)
[2022-03-10] MEDS: LORazepam 2 mg VIAL 1 ml IV PUSH PRN (03:29)
[2022-03-10] MEDS: Acetaminophen IV 1 GM/100ML 100 ML IV SCH ×2 (04:30→10:49)
[2022-03-10] MEDS: Linezolid 600 MG IVPREMIX(*) 600 MG/300 ML BAG IVPB SCH (05:23)
[2022-03-10] MEDS: Heparin 5000 UNITS/ML 1 mL VIAL SUBCUT SCH (06:19)
[2022-03-10 06:20] LABS: Hematocrit 30 % (42-52); Hemoglobin 10.1 g/dL (14.0-18.0); Mean Corpuscular HGB Conc 33 g/dL (31-36); Mean Corpuscular Hemoglobin 30 pg (27-31); Mean Corpuscular Volume 89 fL (80-94); Mean Platelet Volume 8.3 fL (7.4-10.4); Platelet Count 264 10^3/uL (150-450); Red Blood Count 3.42 10^6 /uL (4.18-5.48); Red Cell Distribution Width 14 % (10-15); White Blood Count 9.9 10^3/uL (3.5-10.8)
[2022-03-10 07:03] LABS: Calcium 7.6 mg/dL (8.6-10.3); Magnesium 2.1 mg/dL (1.9-2.7); Potassium 3.7 mmol/L (3.5-5.0); eGFR CKD-EPI 54.3 (>60)
[2022-03-10 08:10] VITALS: BP 145/72
[2022-03-10] MEDS: Pantoprazole VIAL 40 MG VIAL IV SCH (08:41)
[2022-03-10] MEDS ORDERED: COVID-19 VACCINE, MRNA(MODERNA) BOOSTER/PF 50 MCG/0.25 ML IM ONE (11:00)
== END 2022-03-10 15:00 | DRG 853 ==
LOC: ED 08:55 → EDHOLD 11:14 → SUATTDRO 11:14 → ICU 13:38 → SSU 03-06 15:43
PROVIDERS: ADMIT Internal Medicine; ATTEND Student in an Organized Health Care Education/Training Program